=== PATIENT | female | born 1950 | race American Indian/Alaskan Native ===

== ENCOUNTER 2017-01-25 15:33 | Inpatient (IN) | payer MEDICARE, OTHER ==
[2017-01-25 15:48] VITALS: BMI 21.8
--- NOTE | 2017-01-25 16:19 | ED PDOC ---
Arrival/HPI - General Chief Complaint: Weakness/Neurological Deficit Time Seen by Provider: 01/25/17 15:35 Historian: Patient - History of Present Illness Narrative History of Present Illness (Text): 01/25/17 16:13 A 66 year old female, whose past medical history includes hypertension, COPD, anemia, asthma, was sent into the emergency department by PMD complaining of a headache for the past 4 weeks. Patient notes radiating pain to her neck and left shoulder. As per triage, patient also complained of intermittent right arm weakness for 4 weeks. Patient reports she was informed she has a large brain tumor. Patient denies any fever, nausea, vomiting, diarrhea, abdominal pain, chest pain, shortness of breath or any other complaints. pt is poor historian. PMD: Dr. Butt 01/25/17 18:25 Time/Duration: Other (4 weeks) Symptom Course: Unchanged Quality: Other Context: Other Past Medical History - Provider Review Nursing Documentation Reviewed: Yes - Infectious Disease Hx of Infectious Diseases: None - Reproductive Menopause: Yes - Cardiac Hx Cardiac Disorders: Yes Hx Hypertension: Yes - Pulmonary Hx Respiratory Disorders: Yes Hx Asthma: Yes Hx Chronic Obstructive Pulmonary Disease (COPD): Yes - Neurological Hx Neurological Disorder: Yes Hx Seizures: Yes - HEENT Hx HEENT Disorder: Yes Hx Cataracts: Yes (bilateral) - Renal Hx Renal Disorder: No - Endocrine/Metabolic Hx Endocrine Disorders: No - Hematological/Oncological Hx Blood Disorders: Yes Hx Cancer: Yes (lymphoma (in remission)) - Integumentary Hx Dermatological Disorder: No - Musculoskeletal/Rheumatological Hx Musculoskeletal Disorders: No - Gastrointestinal Hx Gastrointestinal Disorders: Yes Hx Gastroesophageal Reflux: Yes - Genitourinary/Gynecological Hx Genitourinary Disorders: Yes Hx Incontinence: Yes - Psychiatric Hx Psychophysiologic Disorder: Yes Hx Anxiety: Yes Hx Substance Use: No - Surgical History Hx Section: Yes - Anesthesia Hx Anesthesia: Yes Hx Anesthesia Reactions: No Hx Malignant Hyperthermia: No - Suicidal Assessment Feels Threatened In Home Enviroment: No Family/Social History - Physician Review Nursing Documentation Reviewed: Yes Family/Social History: No Known Family HX Smoking Status: Former Smoker Hx Alcohol Use: No Hx Substance Use: No Hx Substance Use Treatment: No Allergies/Home Meds Allergies/Adverse Reactions: Allergies No Known Allergies Allergy (Verified 12/18/16 14:32) Home Medications: Home Meds Medication Instructions Recorded Confirmed Aspirin [Ecotrin] 81 mg PO DAILY 09/24/16 01/25/17 Folic Acid 1 mg PO DAILY 09/24/16 01/25/17 Lamotrigine [Lamictal] 200 mg PO BID 10/18/16 01/25/17 Famotidine [Pepcid] 20 mg PO DAILY 10/22/16 01/25/17 Prednisone 5 mg PO DAILY 10/22/16 01/25/17 Metoprolol Tartrate [Lopressor] 50 mg PO BID 12/18/16 01/25/17 Valsartan/Hydrochlorothiazide 1 tab PO DAILY 12/18/16 01/25/17 [Valsartan-Hctz 320-25 mg Tab] Vit A/Vit C/Vit E/Zinc/Copper 1 tab PO BID 12/18/16 01/25/17 [Preservision Areds Tablet] amLODIPine [Norvasc] 10 mg PO DAILY 12/18/16 01/25/17 Review of Systems - Physician Review All systems were reviewed & negative as marked: Yes - Review of Systems Constitutional: absent: Fevers Respiratory: absent: SOB Cardiovascular: absent: Chest Pain Gastrointestinal: absent: Abdominal Pain, Diarrhea, Nausea, Vomiting Neurological: Headache (with radiating pain to neck and left shoulder), Other ( Right arm weakness) Physical Exam Vital Signs Reviewed: Yes Vital Signs Temp Pulse Resp BP Pulse Ox 01/25/17 18:42 98.8 F 114 H 18 127/101 H 98 01/25/17 16:15 110 H 15 150/98 H 100 01/25/17 15:41 99.3 F 109 H 18 153/109 H 97 01/25/17 15:34 99.3 F 109 H 18 153/109 H 97 Temperature: Afebrile Blood Pressure: Hypertensive Pulse: Tachycardic Respiratory Rate: Normal Appearance: Positive for: Well-Appearing, Non-Toxic, Comfortable Pain Distress: None Mental Status: Positive for: Alert and Oriented X 3 - Systems Exam Head: Present: Atraumatic, Normocephalic Pupils: Present: PERRL Extroacular Muscles: Present: EOMI Conjunctiva: Present: Normal Mouth: Present: Moist Mucous Membranes Neck: Present: Normal Range of Motion Respiratory/Chest: Present: Clear to Auscultation, Good Air Exchange. No: Respiratory Distress, Accessory Muscle Use Cardiovascular: Present: Regular Rate and Rhythm, Normal S1, S2. No: Murmurs Abdomen: Present: Normal Bowel Sounds. No: Tenderness, Distention, Peritoneal Signs Back: Present: Normal Inspection Upper Extremity: Present: Normal Inspection. No: Cyanosis, Edema Lower Extremity: Present: Normal Inspection. No: Edema Neurological: Present: GCS=15, CN II-XII Intact, Speech Normal Skin: Present: Warm, Dry, Normal Color. No: Rashes Psychiatric: Present: Alert, Oriented x 3, Normal Insight, Normal Concentration Medical Decision Making ED Course and Treatment: 01/25/17 16:13 Impression: A 66 year old female with a headache,for four weeks Plan: -- Chest xray -- EKG -- Labs -- Blood and Urine culture -- Urinalysis -- Reassess and disposition Prior Visits: Notes and results from previous visits were reviewed. Patient had an MRI done on 01/16/17 which showed, Report Date : 01/16/2017 14:10:02 PROCEDURE: MRI OF THE BRAIN AND INTERNAL AUDITORY CANALS WITH AND WITHOUT CONTRAST. 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 Please see comments for details. Progress Notes: EKG shows sinus tachycardia at 110 BPM with LVH. Interpreted by me. Report Date : 01/25/2017 16:55:19 Procedure: Chest xray Dictator : Dennys Felton MD IMPRESSION: No active disease. No significant interval change compared to the prior examination(s). labs reviewed. neurtropenic. (wbc 2.1) however pt not febrile. pt comfortable. 01/25/17 17:28 Dr. Butt paged. Awaiting call back. 01/25/17 18:[address] Pereyra, who is covering for Dr. Butt, who is aware of and agrees with plan to admit patient under Dr. Butt's service. Labs reviewed, neutrophils noted. Patient does not have a fever, will not administer antibiotics at this time according to Dr Pereyra. 01/25/17 18:25 01/25/17 18:29 - Lab Interpretations Lab Results: 01/25/17 16:32 01/25/17 16:32 Lab Results 01/25/17 16:32: WBC 2.1 L* D, RBC 4.63, Hgb 14.2, Hct 41.7, MCV 90.1, MCH 30.7, MCHC 34.1, RDW 12.9, Plt Count 180, MPV 9.8, Neutrophils % (Manual) 46 L, Lymphocytes % (Manual) 41 H, Monocytes % (Manual) 11 H, Eosinophils % (Manual) 2 , Platelet Evaluation Normal, Sodium 144, Potassium 3.7, Chloride 99, Carbon Dioxide 31, Anion Gap 18, BUN 17, Creatinine 0.9, Est GFR ( Amer) > 60, Est GFR (Non-Af Amer) > 60, Random Glucose 99, Calcium 10.9 H, Total Bilirubin 0.9, AST 46 H, ALT 41, Alkaline Phosphatase 74, Total Protein 8.1, Albumin 4.8, Globulin 3.2, Albumin/Globulin Ratio 1.5 I have reviewed the lab results: Yes - RAD Interpretation Radiology Orders: 01/25/17 16:11 CHEST PORTABLE [RAD] Stat NIHSS Scale ([place]) Time Performed: 16:00 - How Severe is the Stoke Baseline Level of Consciousness: 0=Alert LOC to Questions: 0=Both comments correct LOC to commands: 0=Obeys both correctly Best Gaze: 0=Normal Visual: 0=No visual loss Facial: 0=Normal Motor Arm - Left: 0=No drift Motor Arm - Right: 0=No drift Motor Leg - Left: 0=No drift Motor Leg - Right: 0=No drift Limb Ataxia: 0=Absent Sensory: 0=Normal Best Language: 0=No aphasia Dysarthia: 0=Normal articulation Extinction & Inattention (Neglect): 0=Normal, no object Score: 0 Risk Level: No Stroke Risk rTPA Inclusion/Exclusion - Refusal of Treatment Patient Refused Treatment: No - Inclusion Criteria for Altepase Patient is 18 years or Older: Yes The Clinical Diagnosis of Ischemic Stroke That is Causing a Potentially Disabling Neurological Deficit: No Time of Onset is Well Established to be Less Than 270 Minute Before Treatment Would Begin: No Risk/Benefit Discussed With Patient/Family Member Present: No - Exclusion Criteria for Altepase Uncontrolled Hypertension at Time of Treatment (Systolic BP above 185 or Diastolic BP above 110 mmHg): No Less Than 3 Months Had a Recent: Intracranial History of: Brain Tumor Active Internal Bleeding: No Known Bleeding Diathesis Including but Not Limited to: Platelets Below 100,000/ mm,PTT Above 40 sec After Heparin Use, Current Use of Oral Anitcoagulant With INR Greater Than 1.7 or PT Greater Than 15 secs: No Evidence of an Intracranial Hemorrhage: No Evidence of Major Acute Infarct With Signs Greater Than 1/3 MCA Territory: No Suspicion of Subarachnoid Hemorrhage on Pretreatment Evaluation Even if CT Head Negative For Hemorrhage: No - Warning to TPA With Conditions Following Conditions Weighed Against Anticipated Benefit: No - Scribe Statement The provider has reviewed the documentation as recorded by the Christopher Wallace Provider Scribe Attestation: All medical record entries made by the Christopher were at my direction and personally dictated by me. I have reviewed the chart and agree that the record accurately reflects my personal performance of the history, physical exam, medical decision making, and the department course for this patient. I have also personally directed, reviewed, and agree with the discharge instructions and disposition. Disposition/Present on Arrival - Present on Arrival Any Indicators Present on Arrival: No History of DVT/PE: No History of Uncontrolled Diabetes: No Urinary Catheter: No History of Decub. Ulcer: No History Surgical Site Infection Following: None - Disposition Have Diagnosis and Disposition been Completed?: Yes Diagnosis: Headache Disposition: HOSPITALIZED Disposition Time: 17:00 Patient Plan: Observation Patient Problems: Current Active Problems Problem Status Diagnosed Fever Acute Headache Acute Leukopenia Acute Pancytopenia Acute Weakness Acute B-cell lymphoma Chronic COPD (chronic obstructive pulmonary disease) Chronic Intractable nausea and vomiting Resolved Condition: STABLE
[2017-01-25 16:53] LABS: HEMATOCRIT 41.7 % (36.0-48.0); MEAN CELL VOLUME 90.1 fL (80.0-105.0); MEAN CORPUSCULAR HEMOGLOBIN 30.7 pg (25.0-35.0); MEAN CORPUSCULAR HGB CONC 34.1 g/dl (31.0-37.0); MEAN PLATELET VOLUME 9.8 fl (7.0-11.0); PLATELET COUNT 180 10^3/uL (120.0-450.0); RED CELL DISTRIBUTION WIDTH 12.9 % (11.5-14.5)
--- NOTE | 2017-01-25 16:56 | RAD ---
HISTORY: Sepsis patient. Technique: Single view portable semi erect @ 16:33. COMPARISON: 01/03/2017. FINDINGS: LUNGS: No active pulmonary disease. PLEURA: No significant pleural effusion identified, no pneumothorax apparent. CARDIOVASCULAR: No radiographic findings to suggest acute or significant cardiovascular disease. OSSEOUS STRUCTURES: No significant abnormalities. VISUALIZED UPPER ABDOMEN: Normal. OTHER FINDINGS: None. IMPRESSION: No active disease. No significant interval change compared to the prior examination(s).
[2017-01-25 16:57] LABS: ALB/GLOB RATIO 1.5 (1.1-1.8); ALKALINE PHOSPHATASE 74 U/L (38-133); ALT/SGPT 41 U/L (7-56); AST/SGOT 46 U/L (15-39); BILIRUBIN,TOTAL 0.9 mg/dL (0.2-1.3); BLOOD UREA NITROGEN 17 mg/dL (7-21); CALCIUM 10.9 mg/dL (8.4-10.5); CARBON DIOXIDE 31 mmol/L (21-33); CHLORIDE 99 mmol/L (98-107); GFR AFRICAN-AMERICAN > 60; GLUCOSE,RANDOM 99 mg/dL (70-110); POTASSIUM 3.7 mmol/L (3.6-5.0); SODIUM 144 mmol/L (132-148); TOTAL PROTEIN 8.1 g/dL (5.8-8.3)
[2017-01-25 17:09] LABS: ADD MANUAL DIFF? YES; WHITE BLOOD COUNT 2.1 10^3/ul (4.5-11.0)
[2017-01-25 17:41] LABS: EOSINOPHIL 2 % (0.0-3.0); NEUTROPHIL 46 % (50.0-70.0); PLATELET ESTIMATE NORMAL (NORMAL)
[2017-01-25 18:46] LABS: PH,URINE 7.5 (4.7-8.0); URINE APPEARANCE CLEAR (CLEAR); URINE BILIRUBIN NEGATIVE (NEGATIVE); URINE BLOOD NEGATIVE (NEGATIVE); URINE COLOR YELLOW (YELLOW); URINE GLUCOSE (UA) NEGATIVE (NEGATIVE); URINE KETONE NEGATIVE (NEGATIVE); URINE LEUKOCYTE ESTERASE NEGATIVE Leu/uL (NEGATIVE); URINE PROTEIN TRACE mg/dL (<30 mg/dL); URINE UROBILINOGEN 0.2 E.U./dL (<1 E.U./dL)
[2017-01-25 18:48] LABS: URINE RBC NEGATIVE /hpf (0-2); URINE WBC NEGATIVE /hpf (0-6)
[2017-01-25 20:26] LABS: GRAN # 0.97 (1.4-6.5)
--- NOTE | 2017-01-25 23:54 | CP.PCM.PN ---
Subjective - Date & Time of Evaluation Date of Evaluation: 01/25/17 Time of Evaluation: 23:49 - Subjective Subjective: Patient was seen at bedside because she complained of headache.Has this for 3 weeks, on and off.Mild head ache. No nausea, dizziness. Denies to have had head injury.Also has some shoulder pain on right side.No injury in shoulder. No other Complains. 66 year old woman was admitted with Has PMH of Anemia, asthma, HTN, COPD, lymphoma(Patient states.) Is on neutropenic precautions now. Objective - Vital Signs/Intake and Output Vital Signs (last 24 hours): Temp Pulse Resp BP Pulse Ox 98.6 F 105 H 20 155/95 H 98 01/25/17 20:39 01/25/17 22:22 01/25/17 20:39 01/25/17 22:22 01/25/17 18:42 Intake and Output: 01/25/17 01/26/17 18:59 06:59 Intake Total 500 Balance 500 - Medications Medications: Current Medications Amlodipine Besylate (Norvasc) 10 mg PO DAILY [facility] Camphor/Menthol (Bengay) 0 gm TOP BID PRN PRN Reason: Pain, moderate (4-7) Famotidine (Pepcid) 20 mg PO DAILY [facility] Folic Acid (Folic Acid) 1 mg PO DAILY [facility] Hydrochlorothiazide (Hydrodiuril) 25 mg PO DAILY [facility] Lamotrigine (Lamictal) 200 mg PO BID [facility] Metoprolol Tartrate (Lopressor) 50 mg PO BID [facility] Non-Formulary Medication (Vit A/Vit C/Vit E/Zinc/Copper [Preservision Areds Tablet]) 1 tab PO BID [facility] Valsartan (Diovan) 320 mg PO DAILY [facility] - Constitutional Appears: Well, No Acute Distress - Head Exam Head Exam: ATRAUMATIC, NORMAL INSPECTION, NORMOCEPHALIC - Eye Exam Eye Exam: Normal appearance - ENT Exam ENT Exam: Mucous Membranes Moist - Neck Exam Neck Exam: Normal Inspection. absent: Thyromegaly - Respiratory Exam Respiratory Exam: NORMAL BREATHING PATTERN - Cardiovascular Exam Cardiovascular Exam: absent: JVD - GI/Abdominal Exam GI & Abdominal Exam: absent: Distended - Rectal Exam Rectal Exam: Deferred - Neurological Exam Neurological Exam: Alert, Oriented x3 - Psychiatric Exam Psychiatric exam: Normal Affect, Normal Mood - Skin Skin Exam: Normal Color Assessment and Plan - Assessment and Plan (Free Text) Assessment: A/P: Head ache-stress. Right shoulder pain. HTN. Asthma. Anemia. Tylenol as ordered. Analgesic balm instead of Voltaren cream as ordered by PMD
--- NOTE | 2017-01-26 07:16 | CP.PCM.CON ---
<Leobardo Soto - Last Filed: 01/26/17 10:28> History of Present Illness - History of Present Illness History of Present Illness: Leobardo Soto D.O. PGY-1, Internal Medicine Resident, Neurology Consultation Note , Dr. Jono Mcgowan. Service 66 year old female with a PMH of Stage IV B cell lymphoma, HTN, and seizure disorder who presented to [facility] on 01/25/17 with complaints of right shoulder pain and weakness for multiple weeks. Neurological consultation was placed for Dr. Jono Mcgowan. Patient was seen and examined at bedside. Patient relates how she started to get the right facial numbness about 3-4 weeks ago and around this time also started to get weakness of her right shoulder. Patient denies any numbness of the right shoulder or paresthesias or distal weakness. Patient describes pain as "in the joint." Otherwise patient admits to chronic issues with swallowing foods and has been seen by ENT in the past. Patient states her last seizure was years ago and she usually has no auras but does have urinary incontinence. Review of Systems - Constitutional Constitutional: absent: Anorexia, Chills - EENT Eyes: Requires Corrective Lenses. absent: Pain, Photophobia Ears: absent: Decreased Hearing, Ear Discharge, Ear Pain Nose/Mouth/Throat: absent: Epistaxis, Nasal Congestion, Sinus Pain - Cardiovascular Cardiovascular: absent: Chest Pain, Diaphoresis, Leg Edema - Respiratory Respiratory: absent: Cough, Dyspnea, Hemoptysis - Gastrointestinal Gastrointestinal: Dysphagia. absent: Abdominal Pain, Nausea, Vomiting - Genitourinary Genitourinary: absent: Dysuria, Flank Pain, Hematuria - Musculoskeletal Musculoskeletal: Atrophy (right arm), Myalgias (right shoulder). absent: Arthralgias, Joint Swelling - Integumentary Integumentary: absent: Pruritus, Rash, Sores - Neurological Neurological: Numbness (right face), Focal Weakness (right shoulder). absent: Convulsions, Headaches, Memory Loss Past Patient History - Infectious Disease Hx of Infectious Diseases: None - Past Medical History & Family History Past Medical History?: Yes - Past Social History Smoking Status: Former Smoker - CARDIAC Hx Cardiac Disorders: Yes Hx Hypertension: Yes - PULMONARY Hx Respiratory Disorders: Yes Hx Asthma: Yes Hx Chronic Obstructive Pulmonary Disease (COPD): Yes - NEUROLOGICAL Hx Neurological Disorder: Yes Hx Seizures: Yes - HEENT Hx HEENT Problems: Yes Hx Cataracts: Yes (bilateral) - RENAL Hx Chronic Kidney Disease: No - ENDOCRINE/METABOLIC Hx Endocrine Disorders: No - HEMATOLOGICAL/ONCOLOGICAL Hx Blood Disorders: Yes Hx Cancer: Yes (lymphoma (in remission)) - INTEGUMENTARY Hx Dermatological Problems: No - MUSCULOSKELETAL/RHEUMATOLOGICAL Hx Falls: Yes - GASTROINTESTINAL Hx Gastrointestinal Disorders: Yes Hx Gastroesophageal Reflux: Yes - GENITOURINARY/GYNECOLOGICAL Hx Genitourinary Disorders: Yes Hx Incontinence: Yes - PSYCHIATRIC Hx Psychophysiologic Disorder: Yes Hx Anxiety: Yes - SURGICAL HISTORY Hx Surgeries: Yes - ANESTHESIA Hx Anesthesia: Yes Hx Anesthesia Reactions: No Hx Malignant Hyperthermia: No Meds Allergies/Adverse Reactions: Allergies Allergy/AdvReac Type Severity Reaction Status Date / Time No Known Allergies Allergy Verified 12/18/16 14:32 - Medications Medications: Current Medications Amlodipine Besylate (Norvasc) 10 mg PO DAILY [facility] Camphor/Menthol (Bengay) 0 gm TOP BID PRN PRN Reason: Pain, moderate (4-7) Famotidine (Pepcid) 20 mg PO DAILY [facility] Folic Acid (Folic Acid) 1 mg PO DAILY [facility] Hydrochlorothiazide (Hydrodiuril) 25 mg PO DAILY [facility] Lamotrigine (Lamictal) 200 mg PO BID [facility] Metoprolol Tartrate (Lopressor) 50 mg PO BID [facility] Non-Formulary Medication (Vit A/Vit C/Vit E/Zinc/Copper [Preservision Areds Tablet]) 1 tab PO BID [facility] Valsartan (Diovan) 320 mg PO DAILY [facility] Physical Exam - Constitutional Additional comments: well developed, well nourished, pleasant elderly female, skinny nearing cachectic - Head Exam Head Exam: ATRAUMATIC, NORMOCEPHALIC - Eye Exam Eye Exam: EOMI, PERRL. absent: Scleral icterus - ENT Exam Additional comments: oropharynx is pink and dry - Neck Exam Additional comments: soft, supple, no LAD - Cardiovascular Exam Cardiovascular Exam: Tachycardia, +S1, +S2 - GI/Abdominal Exam GI & Abdominal Exam: Soft. absent: Distended, Tenderness - Extremities Exam Extremities exam: Positive for: normal capillary refill. Negative for: calf tenderness, pedal edema, tenderness - Back Exam Back exam: absent: CVA tenderness (L), CVA tenderness (R), muscle spasm, paraspinal tenderness, vertebral tenderness - Neurological Exam Additional comments: awake, alert, oriented x4, right facial numbness in V1, 2, and 3 distributions, tongue is midline, uvula is midline, able to lift palate equally, PERRL, EOMI, hearing intact, weakness of right shoulder abduction/deltoid, rest of muscle exam: R [employer] 5/5, BI 4+/5, TRI 4/5, DELT 2/5, HF 4+/5, KF 4+/5, DF 4+/5, EHL 5/5 L Yacht [employer] 5/5, BI 5/5, TRI 4+/5, DELT 4+/5, HF 5/5, KF 4+/5, DF 5/5, EHL 4/5 +1 brach/bi/tri/pat/ach reflexes - Skin Skin Exam: Dry, Intact, Warm Results - Vital Signs Recent Vital Signs: Last Vital Signs Temp 98.6 F 01/25/17 20:39 Pulse 106 H 01/26/17 05:51 Resp 20 01/25/17 20:39 BP 155/95 H 01/25/17 22:22 Pulse Ox 98 01/25/17 18:42 - Labs Result Diagrams: 01/25/17 16:32 01/25/17 16:32 Labs: Laboratory Results - last 24 hr 01/25/17 18:12 Urine Color Yellow Urine Appearance Clear Urine pH 7.5 Ur Specific [place] 1.015 Urine Protein Trace H Urine Glucose (UA) Negative Urine Ketones Negative Urine Blood Negative Urine Nitrate Negative Urine Bilirubin Negative Urine Urobilinogen 0.2 Ur Leukocyte Esterase Negative Urine RBC Negative Urine WBC Negative Assessment & Plan - Assessment and Plan (Free Text) Assessment: 66 year old female with a PMH of Stage IV B cell lymphoma, HTN, and seizure disorder who presented to [facility] on 01/25/17 with complaints of right shoulder pain and weakness for multiple weeks. Neurological consultation was placed for Dr. Jono Osuna Plan: Right facial numbness with right medial temporal lobe lesion Right shoulder weakness and pain Stage IV B-cell lymphoma previously on R-CVP chemotherapy with 4-5 treatments in the past Seizure disorder Labs reviewed by me. Imaging reviewed by me, Brain MRI matches her right facial numbness lesion invasion into the Meckel's cave, suspicious for metastasis of her known B-cell lymphoma vs unlikely primary lesion. Case was discussed with Dr. Wing and we discussed the above. This lesion does not match her right shoulder weakness and pain however; I discussed this with Dr. Bynum over telephone and this could be related to a drop metastasis (intradural, extramedullary spinal metastasis), and so she is pending MRI of the cervicothoracic spine. Started on 20 of decadron STAT and will be getting 4mg IV q6h to alleviate her symptoms. Continue with lamictal for seizure disorder. This is not a code stroke patient. Other medical issues under management of primary team. Thank you for allowing us to be involved in the care of this interesting patient , we will continue to follow. Patient was seen and case will be discussed in detail with attending physician. - Date & Time Date: 01/26/17 Time: 07:20 <Harsh De La Cruz - Last Filed: 01/26/17 13:42> Meds - Medications Medications: Current Medications Amlodipine Besylate (Norvasc) 10 mg PO DAILY [facility] Last Admin: 01/26/17 09:01 Dose: 10 mg Camphor/Menthol (Bengay) 0 gm TOP BID PRN PRN Reason: Pain, moderate (4-7) Dexamethasone (Decadron Inj) 4 mg IVP Q6 [facility] Famotidine (Pepcid) 20 mg PO DAILY [facility] Last Admin: 01/26/17 09:01 Dose: 20 mg Folic Acid (Folic Acid) 1 mg PO DAILY [facility] Last Admin: 01/26/17 09:01 Dose: 1 mg Hydrochlorothiazide (Hydrodiuril) 25 mg PO DAILY [facility] Last Admin: 01/26/17 09:01 Dose: 25 mg Lamotrigine (Lamictal) 200 mg PO BID [facility] Last Admin: 01/26/17 09:00 Dose: 200 mg Metoprolol Tartrate (Lopressor) 50 mg PO BID [facility] Last Admin: 01/26/17 09:01 Dose: 50 mg Valsartan (Diovan) 320 mg PO DAILY [facility] Last Admin: 01/26/17 09:01 Dose: 320 mg Results - Vital Signs Recent Vital Signs: Last Vital Signs Temp 98 F 01/26/17 07:52 Pulse 130 H 01/26/17 10:00 Resp 19 01/26/17 07:52 BP 138/103 H 01/26/17 09:01 Pulse Ox 98 01/26/17 07:52 - Labs Result Diagrams: 01/25/17 16:32 01/25/17 16:32 Labs: Laboratory Results - last 24 hr 01/25/17 18:12 Urine Color Yellow Urine Appearance Clear Urine pH 7.5 Ur Specific [place] 1.015 Urine Protein Trace H Urine Glucose (UA) Negative Urine Ketones Negative Urine Blood Negative Urine Nitrate Negative Urine Bilirubin Negative Urine Urobilinogen 0.2 Ur Leukocyte Esterase Negative Urine RBC Negative Urine WBC Negative Attending/Attestation - Attestation I have personally seen and examined this patient.: Yes I have fully participated in the care of the patient.: Yes I have reviewed all pertinent clinical information: Yes Notes (Text): 01/26/17 13:40 patient discussed and seen. will speak with Dr Bynum. this patient did not have a vascular event (TIA, Cerebral Infarct or Hemmorhage).
[2017-01-26] MEDS ORDERED: Dexamethasone 20 MG in Sodium Chloride 0.9% 50 ML IV ONE (08:50)
[2017-01-26] MEDS ORDERED: Sodium Chloride 0.9% 1,000 ML IV STA (09:14)
--- NOTE | 2017-01-26 09:40 | HP ---
HISTORY OF PRESENT ILLNESS: A 66-year-old black female with a history of seizure disorder, history o f hypertension, and history of lymphoma. The patient recently was found to have recurrent lymphoma i n the alma, and recently was seen in the ____ complaining of severe loss of strength of the right upp er extremity. The patient was seen in the office and examined and admitted to the hospital with prog ressive PHARMACY ASSISTANT lymphoma, metastatic lymphoma. PHYSICAL EXAMINATION: GENERAL: Shows a well-developed, but thin black female in no apparent distress. HEENT: Essentially within normal limits. HEART: Regular sinus rhythm. No S3 or murmurs. CHEST: Clear to auscultation and percussion. ABDOMEN: Benign, but thin. EXTREMITIES: Without cyanosis, clubbing, edema. NEUROLOGIC: She is awake and alert x 3. Neurologic examination is grossly intact. Cranial nerves I I-XII are intact. Speech is fluent. The patient is oriented to time, place, and person. There is m arked hemiparesis of the right upper extremity with brief reflexes. Babinskis are downgoing bilatera lly. CEREBELLAR: Within normal limits. IMPRESSION: New onset of right upper extremity hemiparesis in a patient with recent diagnosis of met astatic lymphoma of the alma, history of generalized lymphoma, hypertension. The patient was admitte d for pulse steroids, emergent possible radiation therapy, neurosurgical consultation, and control of blood pressure and seizure disorder REVIEW OF SYSTEMS: A 12-point review of systems is unremarkable except for weakness of the right upp er extremity. The patient states that symptoms began approximately 24-48 hours prior to being seen i n the office. FAMILY HISTORY: Unremarkable. SOCIAL HISTORY: Negative for alcohol and tobacco. PAST MEDICAL HISTORY: Positive only for hypertension, seizure disorder, and lymphoma. ALLERGIES: The patient has no known allergies. Alex Butt MD cc: [id number] TT: 01/26/2017 09:25:39 jn 01/26/2017 08:39:58
[2017-01-26] MEDS ORDERED: Non Formulary Medication (Valsartan/Hydrochlorothiazide [Valsartan-Hctz 320-25 Mg Tab] 1 T PO SCH (10:00)
[2017-01-26] MEDS ORDERED: [UNRECOGNIZED DRUG - OTHER] PO SCH (10:00)
[2017-01-26] MEDS ORDERED: LAMOTRIGINE 200 MG PO SCH (10:00)
[2017-01-26] MEDS ORDERED: ZINC PO SCH (10:00)
[2017-01-26] MEDS ORDERED: VIT E PO SCH (10:00)
[2017-01-26] MEDS ORDERED: VIT C PO SCH (10:00)
[2017-01-26] MEDS ORDERED: VIT A PO SCH (10:00)
[2017-01-26] MEDS ORDERED: COPPER PO SCH (10:00)
[2017-01-26] MEDS ORDERED: diaZEpam 10 mg/2 ml Inj IVP ONE (11:05)
--- NOTE | 2017-01-26 11:18 | CP.PCM.CON ---
<Shyam Geller - Last Filed: 01/26/17 13:21> History of Present Illness - History of Present Illness History of Present Illness: ICU Consult Note for Dr. Ochoa 66 y/o F with PMH of lymphoma, seizure disorder, and HTN presented to the ED on 01/25/17 for a 3-4 week history of right sided headache. Pt states she woke up from her sleep and noticed that her headache was severe, 10/10. Pt denies auras. Pt stated she took aleve for the pain which helped briefly, but pain would come back. In addition to this headache, pt noted a development of right sided arm weakness and shoulder pain. Pt denies any trauma or recent falls. Pt states the weakness in her right arm has become progressively worse and now needs her other arm to help pick it up. Pt has not received any chemotherapy or radiation within the last several months for her lymphoma. On her last visit to her oncologist it was noted that she was in remission. ICU was called to evaluate patient due to tachycardia and brain lesion. Denies CP, SOB, N/V/D, changes in vision or smell, fevers, chills, dysuria. Admits to occasional dizziness. PMH: As above Surgical Hx: Family Hx: Father from stroke Social Hx: Former occasional smoker, denies alcohol or illicit drug use Medication: See MAR Allergies: NKDA Review of Systems - Review of Systems Review of Systems: As per HPI Past Patient History - Infectious Disease Hx of Infectious Diseases: None - Past Medical History & Family History Past Medical History?: Yes - Past Social History Smoking Status: Former Smoker - CARDIAC Hx Cardiac Disorders: Yes Hx Hypertension: Yes - PULMONARY Hx Respiratory Disorders: Yes Hx Asthma: Yes Hx Chronic Obstructive Pulmonary Disease (COPD): Yes - NEUROLOGICAL Hx Neurological Disorder: Yes Hx Seizures: Yes - HEENT Hx HEENT Problems: Yes Hx Cataracts: Yes (bilateral) - RENAL Hx Chronic Kidney Disease: No - ENDOCRINE/METABOLIC Hx Endocrine Disorders: No - HEMATOLOGICAL/ONCOLOGICAL Hx Blood Disorders: Yes Hx Cancer: Yes (lymphoma (in remission)) - INTEGUMENTARY Hx Dermatological Problems: No - MUSCULOSKELETAL/RHEUMATOLOGICAL Hx Falls: Yes - GASTROINTESTINAL Hx Gastrointestinal Disorders: Yes Hx Gastroesophageal Reflux: Yes - GENITOURINARY/GYNECOLOGICAL Hx Genitourinary Disorders: Yes Hx Incontinence: Yes - PSYCHIATRIC Hx Psychophysiologic Disorder: Yes Hx Anxiety: Yes - SURGICAL HISTORY Hx Surgeries: Yes - ANESTHESIA Hx Anesthesia: Yes Hx Anesthesia Reactions: No Hx Malignant Hyperthermia: No Meds Allergies/Adverse Reactions: Allergies Allergy/AdvReac Type Severity Reaction Status Date / Time No Known Allergies Allergy Verified 12/18/16 14:32 - Medications Medications: Current Medications Amlodipine Besylate (Norvasc) 10 mg PO DAILY [facility] Last Admin: 01/26/17 09:01 Dose: 10 mg Camphor/Menthol (Bengay) 0 gm TOP BID PRN PRN Reason: Pain, moderate (4-7) Dexamethasone (Decadron Inj) 4 mg IVP Q6 [facility] Famotidine (Pepcid) 20 mg PO DAILY [facility] Last Admin: 01/26/17 09:01 Dose: 20 mg Folic Acid (Folic Acid) 1 mg PO DAILY [facility] Last Admin: 01/26/17 09:01 Dose: 1 mg Hydrochlorothiazide (Hydrodiuril) 25 mg PO DAILY [facility] Last Admin: 01/26/17 09:01 Dose: 25 mg Lamotrigine (Lamictal) 200 mg PO BID [facility] Last Admin: 01/26/17 09:00 Dose: 200 mg Metoprolol Tartrate (Lopressor) 50 mg PO BID [facility] Last Admin: 01/26/17 09:01 Dose: 50 mg Valsartan (Diovan) 320 mg PO DAILY [facility] Last Admin: 01/26/17 09:01 Dose: 320 mg Physical Exam - Constitutional Appears: Well, No Acute Distress - Head Exam Head Exam: ATRAUMATIC, NORMAL INSPECTION, NORMOCEPHALIC - Eye Exam Eye Exam: EOMI, Normal appearance, PERRL - ENT Exam ENT Exam: Mucous Membranes Moist, Normal Exam - Neck Exam Neck exam: Positive for: Normal Inspection. Negative for: Lymphadenopathy - Respiratory Exam Respiratory Exam: Clear to Auscultation Bilateral, NORMAL BREATHING PATTERN. absent: Rales, Rhonchi - Cardiovascular Exam Cardiovascular Exam: Tachycardia, REGULAR RHYTHM, +S1, +S2 - GI/Abdominal Exam GI & Abdominal Exam: Normal Bowel Sounds, Soft. absent: Rebound, Tenderness - Extremities Exam Extremities exam: Positive for: normal inspection. Negative for: calf tenderness, pedal edema - Neurological Exam Neurological exam: Alert, CN II-XII Intact, Oriented x3 Additional comments: Upper right extremity strength 2/5 Upper left extremity strength 5/5 Lower left extremity strength 5/5 Lower right extremity strength 5/5 - Psychiatric Exam Psychiatric exam: Normal Affect, Normal Mood - Skin Skin Exam: Intact, Normal Color, Warm Results - Vital Signs Recent Vital Signs: Last Vital Signs Temp 98 F 01/26/17 07:52 Pulse 138 H 01/26/17 09:01 Resp 19 01/26/17 07:52 BP 138/103 H 01/26/17 09:01 Pulse Ox 98 01/26/17 07:52 - Labs Result Diagrams: 01/25/17 16:32 01/25/17 16:32 Labs: Laboratory Results - last 24 hr 01/25/17 18:12 Urine Color Yellow Urine Appearance Clear Urine pH 7.5 Ur Specific [place] 1.015 Urine Protein Trace H Urine Glucose (UA) Negative Urine Ketones Negative Urine Blood Negative Urine Nitrate Negative Urine Bilirubin Negative Urine Urobilinogen 0.2 Ur Leukocyte Esterase Negative Urine RBC Negative Urine WBC Negative Assessment & Plan - Assessment and Plan (Free Text) Plan: 66 y/o F with PMH of lymphoma, seizure disorder, and HTN presented to the ED on 01/25/17 for a 3-4 week history of right sided headache. ICU was consulted for tachycardia and brain mass. Pt was found to be tachycardic at a rate of 111 after receiving a bolus of 1 L of NS. At this time, EKG and cardiology consult will be recommended. Pt was resting comfortably in her room. Brain MRI shows enhancing lesion surrounding the right trigeminal nerve extending from the surface of the alma into meckels cave. At this time, patient does not meet criteria for ICU admission as she is hemodynamically stable and has no respiratory distress. Neuro: AAOx3 Seizure precautions, continue home medication Aspiration precautions New onset right upper extremity weakness, consider MRI cervical spine Facial numbness secondary to lesion surrounding trigeminal nerve Cardio: Hemodynamically stable Maintain MAP >65 Recommend EKG and cardiology consult for prolonged tachycardia Continue home BP medication Pulm: Maintain 02 saturation greater than 90% No respiratory distress at this time Aspiration precautions GI: GI prophylaxis HHD Onc/ID: Afebrile, leukopenic Awaiting blood and urine cultures Radiation oncology consulted Oncology consulted Maintain normothermia Nephro: Replenish electrolytes as needed Maintain euvolemia Seen, reviewed, and discussed with attending. Duyen, PGY-1 <Kelby Ochoa - Last Filed: 01/26/17 13:48> Meds - Medications Medications: Current Medications Amlodipine Besylate (Norvasc) 10 mg PO DAILY [facility] Last Admin: 01/26/17 09:01 Dose: 10 mg Camphor/Menthol (Bengay) 0 gm TOP BID PRN PRN Reason: Pain, moderate (4-7) Dexamethasone (Decadron Inj) 4 mg IVP Q6 [facility] Famotidine (Pepcid) 20 mg PO DAILY [facility] Last Admin: 01/26/17 09:01 Dose: 20 mg Folic Acid (Folic Acid) 1 mg PO DAILY [facility] Last Admin: 01/26/17 09:01 Dose: 1 mg Hydrochlorothiazide (Hydrodiuril) 25 mg PO DAILY [facility] Last Admin: 01/26/17 09:01 Dose: 25 mg Lamotrigine (Lamictal) 200 mg PO BID [facility] Last Admin: 01/26/17 09:00 Dose: 200 mg Metoprolol Tartrate (Lopressor) 50 mg PO BID [facility] Last Admin: 01/26/17 09:01 Dose: 50 mg Valsartan (Diovan) 320 mg PO DAILY [facility] Last Admin: 01/26/17 09:01 Dose: 320 mg Results - Vital Signs Recent Vital Signs: Last Vital Signs Temp 98 F 01/26/17 07:52 Pulse 130 H 01/26/17 10:00 Resp 19 01/26/17 07:52 BP 138/103 H 01/26/17 09:01 Pulse Ox 98 01/26/17 07:52 - Labs Result Diagrams: 01/25/17 16:32 01/25/17 16:32 Labs: Laboratory Results - last 24 hr 01/25/17 18:12 Urine Color Yellow Urine Appearance Clear Urine pH 7.5 Ur Specific [place] 1.015 Urine Protein Trace H Urine Glucose (UA) Negative Urine Ketones Negative Urine Blood Negative Urine Nitrate Negative Urine Bilirubin Negative Urine Urobilinogen 0.2 Ur Leukocyte Esterase Negative Urine RBC Negative Urine WBC Negative Attending/Attestation - Attestation I have personally seen and examined this patient.: Yes I have fully participated in the care of the patient.: Yes I have reviewed all pertinent clinical information: Yes Notes (Text): 01/26/17 13:43 The patient was seen and examined at the bedside. Patient care was discussed with resident Medical records, lab studies, and imaging were reviewed and management issues were discussed and formulated. Last 24H events reviewed. Agree with above treatment plans as outlined in 's note with addition of the following: -hemodynamic monitoring to maintain MAP>65; currently stable -f\u serial ECG -asymptomatic sinus tachycardia noted -consider cardiology eval -o2 supplementation to maintain Spo2>90 Pao2>60; currently comfortable on NC -consider nebs PRN -neurosurgery team f\u -neurology team f\u -continue anti-seizure meds and precautions -repeat brain MRI as per neurosurgical team -f\u Bun\Cr and U\o -PO diet and aspiration precautions -continue neuro checks -heme\onc f\u for possible radiation therapy -DVT\PUD prophylaxis Pt is hemodynamically stable at the time of exam. Pt speaking full sentences in no respiratory distress. Pt is alert and oriented and follows commands. Please reconsult if condition changes or necessary CCM eval time 40min
[2017-01-26] MEDS: Dexamethasone 4 mg/1 ml IVP SCH ×2 (12:00→18:02)
--- NOTE | 2017-01-26 12:26 | CP.PCM.CON ---
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 Her history dates back to 2015 when she presented with fevers of unknown etiology. A CT of the chest, abdomen and pelvis on January 16, 2016 revealed stable extensive axillary and mediastinal adenopathy. There was abnormal enhancement in the spleen. On December 30, 2015, she had a bone marrow biopsy with flow cytometry which confirmed small cell lymphoma. She was treated with rituxan based chemotherapy. She had a good response. A CT/Pet scan on May 18, 2016 revealed no lymphadenopathy. In September, she was having issues with dysphagia as well as dizziness. On October 04, 2016, she had a follow up CT of the neck and chest which revealed no evidence of disease recurrence. An esophagram on October 05, [address] of the head on October 16, 2016 was negative dizziness. On October 26, 2016, she had a modified barium swallow which revealed transient aspiration. She then started having right sided facial numbness. A MRI of the brain on January 16, 2017 revealed an enhancing mass in the right trigeminal extending into the alma which was felt to be a schwannoma versus subarachnoid metastases. She was supposed to be evaluated for neurosurgery for evaluation for possible biopsy, however she started having right arm weakness. In light of her evolving symptoms, she was admitted to [facility] for further evaluation and management. She was also found to be neutropenic on admission. Review of Systems - Constitutional Constitutional: Weight Loss - EENT Nose/Mouth/Throat: Hoarsness - Respiratory Respiratory: Cough - Gastrointestinal Gastrointestinal: Dysphagia - Musculoskeletal Musculoskeletal: Neck Pain - Neurological Neurological: Focal Weakness Additional comments: right proximal arm weakness and right facial numbness. Past Patient History - Infectious Disease Hx of Infectious Diseases: None - Past Medical History & Family History Past Medical History?: Yes - Past Social History Smoking Status: Former Smoker Alcohol: Occasional - CARDIAC Hx Cardiac Disorders: Yes Hx Hypertension: Yes - PULMONARY Hx Respiratory Disorders: Yes Hx Asthma: Yes Hx Chronic Obstructive Pulmonary Disease (COPD): Yes - NEUROLOGICAL Hx Neurological Disorder: Yes Hx Seizures: Yes - HEENT Hx HEENT Problems: Yes Hx Cataracts: Yes (bilateral) - RENAL Hx Chronic Kidney Disease: No - ENDOCRINE/METABOLIC Hx Endocrine Disorders: No - HEMATOLOGICAL/ONCOLOGICAL Hx Blood Disorders: Yes Hx Cancer: Yes (stage IV lymphoma in 2016) - INTEGUMENTARY Hx Dermatological Problems: No - MUSCULOSKELETAL/RHEUMATOLOGICAL Hx Falls: Yes - GASTROINTESTINAL Hx Gastrointestinal Disorders: Yes Hx Gastroesophageal Reflux: Yes - GENITOURINARY/GYNECOLOGICAL Hx Genitourinary Disorders: Yes Hx Incontinence: Yes - PSYCHIATRIC Hx Psychophysiologic Disorder: Yes Hx Anxiety: Yes - SURGICAL HISTORY Hx Surgeries: Yes - ANESTHESIA Hx Anesthesia: Yes Hx Anesthesia Reactions: No Hx Malignant Hyperthermia: No Meds Allergies/Adverse Reactions: Allergies Allergy/AdvReac Type Severity Reaction Status Date / Time No Known Allergies Allergy Verified 12/18/16 14:32 - Medications Medications: Current Medications Amlodipine Besylate (Norvasc) 10 mg PO DAILY [facility] Last Admin: 01/26/17 09:01 Dose: 10 mg Camphor/Menthol (Bengay) 0 gm TOP BID PRN PRN Reason: Pain, moderate (4-7) Dexamethasone (Decadron Inj) 4 mg IVP Q6 [facility] Famotidine (Pepcid) 20 mg PO DAILY [facility] Last Admin: 01/26/17 09:01 Dose: 20 mg Folic Acid (Folic Acid) 1 mg PO DAILY [facility] Last Admin: 01/26/17 09:01 Dose: 1 mg Hydrochlorothiazide (Hydrodiuril) 25 mg PO DAILY [facility] Last Admin: 01/26/17 09:01 Dose: 25 mg Lamotrigine (Lamictal) 200 mg PO BID [facility] Last Admin: 01/26/17 09:00 Dose: 200 mg Metoprolol Tartrate (Lopressor) 50 mg PO BID [facility] Last Admin: 01/26/17 09:01 Dose: 50 mg Valsartan (Diovan) 320 mg PO DAILY [facility] Last Admin: 01/26/17 09:01 Dose: 320 mg Physical Exam - Head Exam Head Exam: NORMAL INSPECTION - Eye Exam Eye Exam: EOMI - ENT Exam ENT Exam: Mucous Membranes Moist - Respiratory Exam Respiratory Exam: Clear to Auscultation Bilateral - Cardiovascular Exam Cardiovascular Exam: REGULAR RHYTHM - GI/Abdominal Exam GI & Abdominal Exam: Normal Bowel Sounds - Back Exam Back exam: NORMAL INSPECTION - Neurological Exam Neurological exam: Oriented x3 Additional comments: right trigeminal nerve palsy and right proximal arm weakness 4/5. She is unable to raise her right arm above her shoulders. Her left arm strength is intact. Lower extremity strength is intact. Results - Vital Signs Recent Vital Signs: Last Vital Signs Temp 98 F 01/26/17 07:52 Pulse 138 H 01/26/17 09:01 Resp 19 01/26/17 07:52 BP 138/103 H 01/26/17 09:01 Pulse Ox 98 01/26/17 07:52 - Labs Result Diagrams: 01/25/17 16:32 01/25/17 16:32 Labs: Laboratory Results - last 24 hr 01/25/17 18:12 Urine Color Yellow Urine Appearance Clear Urine pH 7.5 Ur Specific [place] 1.015 Urine Protein Trace H Urine Glucose (UA) Negative Urine Ketones Negative Urine Blood Negative Urine Nitrate Negative Urine Bilirubin Negative Urine Urobilinogen 0.2 Ur Leukocyte Esterase Negative Urine RBC Negative Urine WBC Negative Assessment & Plan - Assessment and Plan (Free Text) Assessment: Ms Barlow is a 66 year old female with 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 Given her evolving symptoms, we would concur that she needs a MRI of the cervical and thoracic spine to evaluate for drop metastases. She would benefit from decadron to help reduce the mass effect on the nerves. She will be transferred to the ICU for close monitoring. We discussed her brain lesion with Dr Bynum, and most likely given the constellation of symptoms, this is a metastases. We spoke to her about the risks and benefits. Informed consent was obtained. We will schedule her for a simulation session so that we can begin U[facility]AN[place].
--- NOTE | 2017-01-26 14:02 | CON ---
DATE: 01/26/2017 HISTORY OF PRESENT ILLNESS: This 66-year-old black female admitted last night. History of seizure d isorder, history of hypertension and history of lymphoma. Was found to have a mass in the right Meck [place]'s cave area impressing upon the area of the fifth nerve as well as the anterolateral alma. She wa s admitted last night because of complaints of pain and weakness in the right upper extremity. She n otes that she has pain on motion of the arm at the shoulder. She has weakness proximally. She is un able to really get her arm above the plane of her shoulder independently. The strength in her arm be low that, the biceps, triceps, intrinsics of the hand are equal to the other side. She really has no sensory deficits on that arm. There is tenderness in the area of the shoulder as well as pain on pa ssive motion of the shoulder. PHYSICAL EXAMINATION: She remains awake, alert. She has complaint of pain in her face. Her pupils are equal. Her EOMs are full. She does not have any nystagmus. Her tongue is midline. Her gag and corneal are present. She does have sensation in the trigeminal on both sides of her face. At this point, I have reviewed the chart and discussed with her, her family history, social history, past medical history and review of systems. ALLERGIES: She has no allergies. MEDICATIONS: Listed on the chart. The weakness in her right shoulder along with the pain is really not consistent with the lesion we se e on the MRI of her head. I have recommended an MRI of the cervical spine as well as some diagnostic workup of her shoulder. The lesion within the Meckel's cave is home undoubtedly metastatic lymphoma and therefore should be treated with radiation. Biopsying this area is with difficulty and risk and I do not recommend that. If the MRI of the neck shows anything that is related to her symptomatolog y of her arm, I will add an addendum and discuss treatment options. If not, then there is nothing fu rther from a neurosurgical point of view to do. If you have any questions, do not hesitate to contac t me. Portillo Wing MD cc: [id number] TT: 01/26/2017 14:01:59 Confirmation # [id number] Dictation # [id number]
--- NOTE | 2017-01-26 14:52 | CARD ---
APPROVED REPORT EKG Measurement Heart [id number] <Conclusion> Sinus tachycardia Minimal voltage criteria for LVH, may be normal variant Possible Anterior infarct, age undetermined Abnormal ECG
[2017-01-26] MEDS ORDERED: diaZEpam 10 mg/2 ml Inj IVP STA (16:35)
[2017-01-27] MEDS: Dexamethasone 4 mg/1 ml IVP SCH ×5 (00:07→23:25)
--- NOTE | 2017-01-27 04:13 | CON ---
DATE: 01/26/2017 The patient is currently in room 363, bed 1. HISTORY OF PRESENT ILLNESS: The patient was admitted through the Emergency Room last night, I had be en consulted to see the patient for new onset of findings with right-sided weakness with a background history of recently having been diagnosed with a mass lesion in the alma that was picked up on recen t CAT scan done on 01/16/2017 for progressively worsening symptoms associated with recurrent aspirati on pneumonia and the question was whether the patient was having problems with first active deglutiti on secondary to involvement of the cranial nerves. The patient had been seen by ENT, Dr. Henri millard, who ordered the MRI and after obtained the results of the MRI, the patient was asked to see me. 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 Upon bone marrow biopsy was noted to have a stage IV lymphoma. The patient received 6 cycles of chemotherapy, went into complete remission as evidence on the followup PET/CT scan in 06/08 16 when she was in complete remission. 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 The patient imp roved and was doing relatively well until end of September beginning of October where she was admitte d to the hospital with recurrent pneumonias and there is question of aspiration raised. The patient had CAT scans of the head, which was inconclusive for any mass lesions at that time. The patient con tinued to deteriorate and started having right facial numbness in the distribution of the trigeminal nerve going along the medial aspect of the face and going down to the jaw along with difficulty eatin g and also recurrent aspirations. Based on this, the MRI of the brain was done. The patient was see n by us after the MRI and was scheduled to see the neurosurgeon, Dr. Wing in his office for fu rther evaluation including treatment recommendations or possibly is a targeted biopsy, so that we cou ld make further decisions on treatment planning if it was feasible. We did wanted to get the opinion whether biopsy the area around the alma is ____ should we empirically radiate the patient. Unfortun ately, before she could see Dr. Wing, the patient was seen in Dr. Butt, her PMD's office yesterday with new onset of weakness in the right arm and also associated with that the patient has s ome discomfort and pain in the shoulder as well. Based on this, the patient was also complaining sania t this was also a sudden onset less than 4 days old and in view of this after Dr. Btut spoke to me, we advised the patient to come to the Emergency Room. Constitutional, the patient denies any his tory of fevers or chills. She definitely complains of significant numbness on the right side of the face with no difficulty in swallowing and recurrent aspiration that triggers off more with liquids th an solids. PAST MEDICAL HISTORY: Also significant for seizure disorder for more than 15 years, for which she is on anti-seizure medicines Lamictal. HOME MEDICATIONS: The patient's home medications were reviewed. She is on famotidine 20 daily, foli c acid 1 mg daily, HydroDIURIL 25 mg daily, Lamictal 200 mg b.i.d., metoprolol 50 mg b.i.d., was on D iovan 320 mg p.o. daily. PHYSICAL EXAMINATION: GENERAL: At the time of nurse interview, the patient to be well-developed, well-nourished Am er[place] female who is skinny and showing temporal muscle wasting. HEENT: Head is normocephalic, atraumatic. Conjunctivae pale. Sclerae are anicteric. The patient h as no evidence of any scleral icterus. Examination of the ear, nose, and throat reveals no oropharyn geal lesions. Tongue is moist. NEUROLOGIC: The patient is complaining of numbness in the distribution of the trigeminal nerve on th e right side extending into the jaw. In fact, the jaw also feels also numb also on the right side. Left side appears to be within normal limits. NECK: Supple. There is no adenopathy. No jugular venous distention noted. CARDIOVASCULAR: Reveals S1 and S2 to be normal. The patient has tachycardia. No gallop, no murmur is heard. ABDOMEN: Soft, nontender. Liver and spleen are not palpable. No rebound, rigidity, or guarding is noted. EXTREMITIES: Reveals no cyanosis, clubbing, or edema. No calf tenderness is noted. BACK: Reveals no CVA tenderness, no muscle spasm, no tenderness or vertebral tenderness. NEUROLOGIC: The patient is awake, alert, and oriented x 3. The patient is complaining of facial num bness in the distribution of trigeminal nerve. Tongue is in the midline. Uvula is in the midline. The patient is able to lift the palate equally. The patient has noticeable weakness of the right man ulder and she is also complaining of pain at the right shoulder, but she is unable to raise the arm a svetlana 45 degrees. Right client hr manager is about 5. Deltoid is 2/5, that is of concern to us. Left client hr manager and left hand appear to be within reasonably normal limits. SKIN: Turgor is decreased. No skin lesions are noted. No petechia noted. VITAL SIGNS: From today revealed a T-max of 98.4, pulse is 106, respirations 20, blood pressure is 1 55/95, pulse ox is 98%. LABORATORY DATA: From today reveals a white count of 2.1 with an A NC of 1.9, hemoglobin 14.2, hemat ocrit 41.7, platelet count 180,000. Sodium is 134, K is 3.7, chloride is 99, CO2 is 31, BUN is 17, c reatinine 0.9 with a blood sugar of 99. Urine is clear, pH is 7.5. Specific gravity is 1.1015. Uri ne protein is trace, glucose is negative, ketones are negative. Urine blood is negative. ASSESSMENT NOTES AND PLAN: A 66-year-old female with a new onset of weakness of the right arm and fo rearm along with shoulder pain, with history of having stage IV lymphoma, hypertension, seizure disor efrain, and the findings of a lesion on the alma extending into the Meckel's cave on the right side abhilash g with distribution of the trigeminal nerve, most consistent with recurrence of lymphoma rather than another type of tumor such as schwannoma or primary brain tumor. I spoke with Dr. Wing and Dr Иван Reyes prior to the patient being admitted. The issue here is what could be the next step or cour se of action to take. Plan is to start the patient on IV steroids. She is going to get a stat dose of Decadron 20 mg and then 4 mg IV q. 6 hours. The patient is also going to be placed on PPI and H2 blockers to protect her stomach. We are going to get a stat evaluation by the radiation oncology to see if the patient is a candidate for radiation. In the meantime, I will speak to the neurosurgeon i f there is any value for anything else to be done. Neurology is going to decided if there is a need for possible spinal tap as well. The question is if we could not put the 2 findings of the lesion in the alma and the weakness in the right arm and forearm together unless the patient has secondary met s or what we call as drop mets in the spinal cord. All these would have to be ascertained by doing a nother MRI of the cervical and dorsal spine when the patient is in a better shape to go down and lie down in the MRI machine. Unfortunately, she had to be pulled out today, she became very panicky, man rt of breath, and anxious. I discussed my findings with the neurology resident and spoke to Dr. Edda ferreira, spoke to Dr. Wing as well. Plan is to evaluate the patient for stat radiation, put in a stat consult for Dr. Coleman, I spoke to her and presented the case. She is going to start the treatme nts as soon as it is feasible with the radiation. I also reviewed the MRI with the radiologist from 01/16 clearly shows there is a mass involving the right trigeminal nerve extending anteriorly from th e surface of the shante and extending into the Meckel's cave on the right side. Post contrast image 5 s eries 19 shows the mass measured 26 x 10 mm within the Meckel's cave image of 10 series 18, mas s in that measures 16 mm in diameter. Once, we start the radiation we are going to assess the patien t for ongoing therapy with either continuation of Rituxan or even adding a combination with Rituxan w ith a drug like Imbruvica. Routine post exam instructions have been given to the patient. The patie nt is going to be transferred to the ICU for further definitive management given the fact that tumor is on the shante and the question is that it could be a situation where she could deteriorate suddenly a s all the ____ centers are in the alma and I told the doctors involved in this care that it will be b joy to proactive than reactive over the next 24 hours. Once, the patient gets radiation to the bra in we are going to decide when we are going to start the chemotherapy. Routine post exam instruction s have been given to the patient and I did speak to the patient's as well. Labs for a.m. has been requested. Britni Bynum MD cc: [id number] TT: 01/27/2017 04:12:58 Confirmation # [id number] Dictation # [id number] in
[2017-01-27 05:31] LABS: HEMATOCRIT 38.1 % (36.0-48.0); MEAN CELL VOLUME 88.2 fL (80.0-105.0); MEAN CORPUSCULAR HEMOGLOBIN 30.3 pg (25.0-35.0); MEAN CORPUSCULAR HGB CONC 34.4 g/dl (31.0-37.0); MEAN PLATELET VOLUME 9.7 fl (7.0-11.0); PLATELET COUNT 174 10^3/uL (120.0-450.0); RED CELL DISTRIBUTION WIDTH 12.5 % (11.5-14.5); WHITE BLOOD COUNT 5.8 10^3/ul (4.5-11.0)
[2017-01-27 05:37] LABS: ADD MANUAL DIFF? YES
[2017-01-27 05:50] LABS: ALB/GLOB RATIO 1.6 (1.1-1.8); ALKALINE PHOSPHATASE 57 U/L (38-133); ALT/SGPT 47 U/L (7-56); AST/SGOT 48 U/L (15-39); BILIRUBIN,TOTAL 0.7 mg/dL (0.2-1.3); BLOOD UREA NITROGEN 23 mg/dL (7-21); CARBON DIOXIDE 26 mmol/L (21-33); CHLORIDE 97 mmol/L (95-110); CHOLESTEROL 231 mg/dL (130-200); GFR AFRICAN-AMERICAN > 60; GLUCOSE,RANDOM 177 mg/dL (70-110); MAGNESIUM 1.9 mg/dL (1.7-2.2); PHOSPHOROUS 3.4 mg/dL (2.5-4.5); POTASSIUM 3.8 mmol/L (3.6-5.0); SODIUM 138 mmol/L (132-148); TOTAL PROTEIN 6.9 g/dL (5.8-8.3)
[2017-01-27 06:26] LABS: BAND 4 % (0-2); NEUTROPHIL 60 % (50.0-70.0)
[2017-01-27 06:27] LABS: METAMYELOCYTE 1 %; MYELOCYTE 2 %
[2017-01-27 06:28] LABS: PLATELET ESTIMATE NORMAL (NORMAL)
--- NOTE | 2017-01-27 07:20 | CP.PCM.PN ---
<Leobardo Soto - Last Filed: 01/27/17 08:20> Subjective - Date & Time of Evaluation Date of Evaluation: 01/27/17 Time of Evaluation: 07:10 - Subjective Subjective: Leobardo Soto D.O. PGY-1, Internal Medicine Resident, Neurology Consultation Note , Dr. Jono Mcgowan. Service 66 year old female with a PMH of small cell lymphoma, HTN, and seizure disorder who presented to [facility] on 01/25/17 with complaints of right shoulder pain and weakness for multiple weeks. Neurological consultation was placed for Dr. Jono Mcgowan. Patient was seen and examined at bedside. Patient appears more comfortable today and states that her right shoulder pain is gone. Patient does admit that she still has the same weakness and this has not changed. Yesterday there was an issue with getting the MRI of the cervical and thoracic spine as patient had a lot of shoulder pain and could not be still in the MRI machine, but she states that since her pain is gone now she could do it today. Patient denied any CP, SOB, N/V/D/C, dysuria, or other complaints. Objective - Vital Signs/Intake and Output Vital Signs (last 24 hours): Temp Pulse Resp BP Pulse Ox 98.5 F 128 H 20 118/82 99 01/27/17 04:59 01/27/17 06:00 01/27/17 06:00 01/27/17 06:00 01/27/17 06:00 Intake and Output: 01/27/17 01/27/17 06:59 18:59 Intake Total 600 Output Total 400 Balance 200 - Medications Medications: Current Medications Acetaminophen (Tylenol 325mg Tab) 650 mg PO Q4H PRN PRN Reason: Fever >100.4 F Last Admin: 01/27/17 03:59 Dose: 650 mg Amlodipine Besylate (Norvasc) 10 mg PO DAILY [facility] Last Admin: 01/26/17 09:01 Dose: 10 mg Camphor/Menthol (Bengay) 0 gm TOP BID PRN PRN Reason: Pain, moderate (4-7) Dexamethasone (Decadron Inj) 4 mg IVP Q6 [facility] Last Admin: 01/27/17 05:39 Dose: 4 mg Famotidine (Pepcid) 20 mg PO DAILY [facility] Last Admin: 01/26/17 09:01 Dose: 20 mg Folic Acid (Folic Acid) 1 mg PO DAILY [facility] Last Admin: 01/26/17 09:01 Dose: 1 mg Hydrochlorothiazide (Hydrodiuril) 25 mg PO DAILY [facility] Last Admin: 01/26/17 09:01 Dose: 25 mg Lamotrigine (Lamictal) 200 mg PO BID [facility] Last Admin: 01/26/17 18:01 Dose: 200 mg Propranolol HCl (Inderal) 20 mg PO TID [facility] Last Admin: 01/26/17 18:02 Dose: 20 mg Valsartan (Diovan) 320 mg PO DAILY [facility] Last Admin: 01/26/17 09:01 Dose: 320 mg - Labs Labs: 01/27/17 05:00 01/27/17 05:00 Physical Exam - Constitutional Additional comments: physical exam remains largely unchanged, patient is a well developed, well nourished, pleasant elderly female, skinny nearing cachectic, cooperative, in better spirits today - Head Exam Head Exam: ATRAUMATIC, NORMOCEPHALIC - Eye Exam Eye Exam: EOMI, PERRL. absent: Scleral icterus - ENT Exam Additional comments: oropharynx is pink and dry - Neck Exam Additional comments: soft, supple, no LAD - Cardiovascular Exam Cardiovascular Exam: Tachycardia, +S1, +S2 - GI/Abdominal Exam GI & Abdominal Exam: Soft. absent: Distended, Tenderness - Extremities Exam Extremities exam: Positive for: normal capillary refill. Negative for: calf tenderness, pedal edema, tenderness - Back Exam Back exam: absent: CVA tenderness (L), CVA tenderness (R), muscle spasm, paraspinal tenderness, vertebral tenderness - Neurological Exam Additional comments: largely unchanged exam, AAOx4, right facial numbness in V1 , 2, and 3 distributions, tongue is midline, uvula is midline, able to lift palate equally, weakness of right shoulder abduction/deltoid 2/5, rest of muscle exam: R Log Skidder 5/5, BI 4+/5, TRI 4/5, DELT 2/5, HF 4+/5, KF 4+/5, DF 4+/5, EHL 5/5 L Log Skidder 5/5, BI 5/5, TRI 4+/5, DELT 4+/5, HF 5/5, KF 4+/5, DF 5/5, EHL 4/5 +1 brach/bi/tri/pat/ach reflexes - Skin Skin Exam: Dry, Intact, Warm Assessment and Plan - Assessment and Plan (Free Text) Assessment: 66 year old female with a PMH of Stage IV B cell lymphoma, HTN, and seizure disorder who presented to [facility] on 01/25/17 with complaints of right shoulder pain and weakness for multiple weeks. Neurological consultation was placed for Dr. Jono Mcgowan. Plan: Right facial numbness with right medial temporal lobe lesion Right shoulder weakness, pain is resolved Small cell lymphoma previously on R-CVP chemotherapy Seizure disorder Labs reviewed by me, neutropenia improved. Currently pending MRI of the cervical spine to confirm the suspected drop metastasis as the etiology for her right shoulder weakness, issue with patient being in pain yesterday and anxious but after length discussion and with patient 's pain resolved, patient willing to give it another try. Continue with dexamethasone. Spoke with Dr. Coleman about getting the abovementioned MRI and radiation therapy for today. Continue with lamictal for seizure disorder. Other medical issues under management of primary team. Thank you for allowing us to be involved in the care of this interesting patient , we will continue to follow. Patient was seen and case will be discussed in detail with attending physician. <Harsh De La Cruz - Last Filed: 01/27/17 15:47> Objective - Vital Signs/Intake and Output Vital Signs (last 24 hours): Temp Pulse Resp BP Pulse Ox 98.8 F 117 H 14 137/91 H 97 01/27/17 12:00 01/27/17 14:46 01/27/17 14:46 01/27/17 14:00 01/27/17 14:46 Intake and Output: 01/27/17 01/27/17 06:59 18:59 Intake Total 600 Output Total 400 Balance 200 - Medications Medications: Current Medications Acetaminophen (Tylenol 325mg Tab) 650 mg PO Q4H PRN PRN Reason: Fever >100.4 F Last Admin: 01/27/17 03:59 Dose: 650 mg Camphor/Menthol (Bengay) 0 gm TOP BID PRN PRN Reason: Pain, moderate (4-7) Dexamethasone (Decadron Inj) 4 mg IVP Q6 [facility] Last Admin: 01/27/17 13:52 Dose: 4 mg Famotidine (Pepcid) 20 mg PO DAILY [facility] Last Admin: 01/27/17 09:06 Dose: 20 mg Folic Acid (Folic Acid) 1 mg PO DAILY [facility] Last Admin: 01/27/17 09:07 Dose: 1 mg Heparin Sodium (Porcine) (Heparin) 5,000 units SC Q8 [facility] PRN Reason: Protocol Last Admin: 01/27/17 13:59 Dose: 5,000 units Hydralazine HCl (Apresoline) 10 mg PO QID PRN PRN Reason: for sbp>160 & diastolic >100 Hydrochlorothiazide (Hydrodiuril) 25 mg PO DAILY [facility] Last Admin: 01/27/17 09:07 Dose: 25 mg Lamotrigine (Lamictal) 200 mg PO BID [facility] Last Admin: 01/27/17 09:07 Dose: 200 mg Propranolol HCl (Inderal La) 80 mg PO DAILY [facility] Last Admin: 01/27/17 09:50 Dose: 80 mg - Labs Labs: 01/27/17 05:00 01/27/17 05:00 Attending/Attestation - Attestation I have personally seen and examined this patient.: Yes I have fully participated in the care of the patient.: Yes I have reviewed all pertinent clinical information, including history, physical exam and plan: Yes Notes (Text): 01/27/17 15:46 patienty discussed witht he resident
[2017-01-27] MEDS ORDERED: diaZEpam 10 mg/2 ml Inj IVP ONE ×2 (07:21→08:18)
--- NOTE | 2017-01-27 07:34 | CON ---
DATE: 01/26/2017 REASON FOR CONSULTATION: Tachycardia, cardiac evaluation. BRIEF CLINICAL HISTORY: This is a 66-year-old female with a past medical history of stage IV lymphom a, status post chemo 2016, last chemo, 8 months ago, when the patient presented with fevers of unknow n etiology. Workup shows mediastinal lymphadenopathy as well as axillary lymphadenopathy and spleen enlargement. The patient has diagnosed lymphoma, small cell lymphoma and status post chemo after the bone marrow biopsy. The patient came in today with generalized weakness, more so started feeling di zziness and also feeling that weakness in both upper extremities, complaining of severe loss of stren gth in both, more so in the right upper extremity, so the patient was admitted for further workup and possible central nervous system lymphoma with metastasis, found to be sinus tachycardia, so cardiolo gy consult was called. The patient denies any chest pain, denies any shortness of breath, denies any palpitation, but when she walks in the , heart rate goes to 130. The patient is going for MRI of the head and neck. Denies any chest pain, but complained that she is unable to get her arm above the shoulder. PAST MEDICAL HISTORY: Significant for as mentioned lymphoma with metastasis, seizure disorder, hyper tension, asthma. PAST SURGICAL HISTORY: So far none. FAMILY HISTORY: Denies any cancer disease. SOCIAL HISTORY: Denies smoking. Denies any history of tobacco abuse. ALLERGIES: No known drug allergy. CURRENT MEDICATIONS: The patient is taking at home was taking an aspirin, prednisone, metoprolol 50 mg twice a day and amlodipine. REVIEW OF SYSTEMS: As per HPI. PHYSICAL EXAMINATION: VITAL SIGNS: Temperature afebrile, heart rate 130 when she walks, resting heart rate 120, blood pres sure 140/80. HEENT: PERRLA. Extraocular muscles intact. NECK: Supple. No thyromegaly. CHEST: Clear to auscultation. HEART: S1, S2 regular. ABDOMEN: Soft. EXTREMITIES: Clubbing and cyanosis negative. LABORATORY DATA: Blood workup as follows: WBC 2.1, hemoglobin 14.1, hematocrit 41.7, platelet count 180. Chemistry shows sodium 144, potassium 3.7, chloride 99, carbon dioxide , anion gap of 18, BUN 17, creatinine 0.9. EKG showed sinus tachycardia, LVH. IMPRESSION: Sinus tachycardia, multifactorial, possibly some underlying condition, neutropenic lymph joshua with metastasis, seizure disorder, hypertension. RECOMMENDATION: The patient is having MRI. We will discontinue metoprolol, start nonselective beta harman, Inderal 20 mg 3 times and monitor. We will get echo to rule out any structural heart diseas e if not done in last 6 months. We will follow with you. Thank you, , for providing the opportunity in taking care of the patient. ADDENDUM: On electronic medical record reviewed. The patient had multiple echoes done, last echo 12/27/2015 and shows a left ventricular ejection fraction 65-70%, no tricuspid regurgitation noted, no mi tral valve regurgitation noted, dated . Prior to that, the patient had an echo in 04/20/[address] Barrera and that shows normal left ventricular function, ejection fraction within the norm al limits, mild valvular aortic stenosis, moderate tricuspid regurgitation, moderate to severe pulmon génesis hypertension, RV systolic pressure reported 61 dated 04/20/2016. Prior to that, the patient had a n echocardiography on 12/29/2015, and that was JUSTIN that showed ejection fraction 65%, no thrombus not ed, trace aortic regurgitation, trace to mild mitral regurgitation, mild to moderate tricuspid regurg itation, right ventricular systolic pressure 38. Prior to that, the patient had a regular echo done on 12/21/2015 that showed ejection fraction 65%, trace aortic regurgitation, mild mitral regurgitatio n, moderate tricuspid regurg, RV systolic pressure 54. In view of above, we will not order an echo, but I will start beta harman, monitor with you. Thank you, Dr. Bynum, for providing us the opportunity in taking care of the patient. We will foll ow with you. Waylon Perez MD cc: [id number] TT: 01/26/2017 19:09:52 Confirmation # [id number] Dictation # [id number] 01/27/2017 06:33:57
--- NOTE | 2017-01-27 09:37 | PN ---
DATE: 01/27/2017 REASON FOR CONSULTATION AND FOLLOWUP: Tachycardia, cardiac evaluation, metastatic lymphoma. BRIEF CLINICAL HISTORY: A 66-year-old female with a past medical history significant for stage IV ly mphoma, status post chemo 2015, last chemo 8 months ago. The patient presented with fever of unknown etiology. When the patient presented, unknown etiology, workup showed lymphadenopathy with axillary lymphadenopathy and splenic enlargement. Workup shows lymphoma, status post chemo. Now patie nt is complaining of the weakness of her upper extremity. Yesterday, patient had MRI of the brain an d spine done. The patient has tachycardia. The patient was on losartan, amlodipine and metoprolol. Metoprolol discontinued, started propranolol, heart rate is 130. Denies any chest pain, shortness o f breath, any palpitation. PHYSICAL EXAMINATION: VITAL SIGNS: Temperature afebrile, heart rate 128, blood pressure 118/82. HEENT: PERRLA. Extraocular muscles intact. NECK: Supple. No carotid bruits. No thyromegaly. CHEST: Clear to auscultation. HEART: S1, S2 regular. ABDOMEN: Soft. EXTREMITIES: Clubbing, cyanosis negative. BLOOD WORKUP: WBC 5.8, hemoglobin 13.1, hematocrit 38.1, platelet count 174. Chemistry shows sodium 130, potassium 3. , chloride 98, carbon dioxide 26, anion gap of 19, BUN 23, creatinine 0.9. TS H is 0.18. Total cholesterol 231, LDL 135, HDL 82. 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 RECOMMENDATION: We will discontinue valsartan 320 because patient is running low blood pressure and also we will discontinue amlodipine for now and we will increase propranolol to 80 mg and we will put hydralazine p.r.n. for elevated blood pressure. We will monitor with you. As mentioned in my consu ltation yesterday, patient has had multiple echoes done. Last echo 12/29. Multiple echoes that shows ejection fraction preserved, dated 12/21/2015 that shows ejection fraction preserved. Prior to that, patient had JUSTIN, also 12/29, that also showed preserved left ventricular function. Most recent echo 12/27/2015 that showed ejection fraction %, no tricuspid regurgitation noted, no mitral valve reg urgitation noted, dated 12/27/2015. We will follow with you. Thank you, Dr. Bynum, for providing us the opportunity in taking care of the patient. Waylon Perez MD cc: [id number] TT: 01/27/2017 09:37:09 Confirmation # [id number] Dictation # [id number]
[2017-01-27] MEDS: Propranolol 80 mg ER Cap PO SCH (09:50)
[2017-01-27] MEDS ORDERED: Gadodiamide 287 MG/ML VIAL (15ML) IV ONE (12:19)
--- NOTE | 2017-01-27 13:22 | MRI ---
PROCEDURE: MRI of the cervical spine with contrast HISTORY: R/O drop mets, do with contrast only COMPARISON: TECHNIQUE: MRI of the cervical spine was performed in the sagittal and axial plane using pre and postcontrast T1 weighted imaging. 15 cc of Omniscan were injected FINDINGS: There is no evidence of abnormal enhancement within the cord or within the subarachnoid space to suggest metastatic disease. The spinal cord is unremarkable. Disc degeneration is seen throughout the cervical spine IMPRESSION: No evidence of metastatic disease
--- NOTE | 2017-01-27 13:25 | MRI ---
PROCEDURE: MR THORACIC SPINE WITH AND WITHOUT CONTRAST HISTORY: R/O drop metases, only if pt can handle COMPARISON: MRI of the cervical spine same day TECHNIQUE: Multiecho multiplanar sequences were performed through the thoracic spine with and without the use of intravenous contrast. 15 cc of Omniscan FINDINGS: ALIGNMENT: Normal thoracic spinal alignment. Normal thoracic kyphosis. VERTEBRA: Vertebral body height are preserved. MARROW: Marrow signal unremarkable. PARASPINAL SOFT TISSUES: Unremarkable. CORD: Unremarkable thoracic cord. No volume loss, signal abnormality or syrinx. DISCS: No disc herniation, spinal canal stenosis, or neuroforaminal narrowing. ENHANCEMENT: No abnormal enhancement. OTHER FINDINGS: None. IMPRESSION: No evidence of metastatic disease to the cord or subarachnoid space
--- NOTE | 2017-01-27 13:42 | PN ---
DATE: 01/27/2017 The patient seen and examined at bedside. She is comfortable. She talks full sentences. She is not in respiratory or otherwise distress. Shoulder pain is gone. PHYSICAL EXAMINATION: VITAL SIGNS: Heart rate 127 (the patient was evaluated by Dr. Perez and propranolol will be started), oxygen saturation 100% on room air, respiratory rate 20, blood pressure 144/80. HEAD AND NECK: Atraumatic. LUNGS: Clear to auscultation bilaterally. HEART: Regular rate and rhythm. S1, S2 normal. ABDOMEN: Soft, nontender, nondistended. NEUROLOGIC: The patient has 3/5 motor strength weakness in the right upper extremity. The strength of the left upper as well as both lower extremities is symmetrical and 5/5. The patient is able to raise her eyebrows, stick out her tongue, smile and shrug her shoulders without any asymmetry or weakness. SKIN: Moist. PSYCHIATRIC: The patient is alert and oriented x 3. LABORATORIES: WBC 5.8, hemoglobin 13.1, platelet count 174. Sodium 138, potassium 3.8, chloride 97, carbon dioxide 26, BUN 23, creatinine 0.9, glucose 177, AST 48, ALT 47. MRI of the thoracic and cervical spine reviewed. MEDICATIONS: Hydralazine p.r.n., Decadron 4 mg IV q. 6, folic acid, Granix, hydrochlorothiazide, propranolol, Lamictal, Pepcid, Tylenol p.r.n., Valium. 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 The patient is getting Decadron to offset swelling that may occur as a result of external radiation therapy. She is in the ICU for frequent neuro checks; however, if doing okay overnight, will be transferred out to regular floor. We will continue to target euvolemia, euglycemia, normothermia and oxygen saturation more than 90%. We will continue with deep venous thrombosis and gastrointestinal prophylaxis. ccm time 40 min Samir Perez MD cc: [id number] TT: 01/27/2017 13:41:22 Confirmation # [id number] Dictation # [id number] en MTDD
--- NOTE | 2017-01-27 15:29 | CP.CCUPN ---
<Ragini Smith - Last Filed: 01/27/17 15:23> CCU Subjective - Physician Review Subjective (Free Text): PGY-1 ICU progress note Patient seen and examined at bedside. No acute distress. Nurse reports no acute events overnight. Patient states she is feeling well, denies facial pain, headache, chest pain, sob, abd pain, n/v/d/c. She continues to report right arm weakness. 01/27/17 15:23 CCU Objective - Vital Signs / Intake & Output Vital Signs (Last 4 hours): Vital Signs Temp Pulse Resp BP Pulse Ox 01/27/17 14:46 117 H 14 97 01/27/17 14:00 123 H 31 H 137/91 H 100 01/27/17 13:54 126 H 23 01/27/17 13:53 127 H 16 01/27/17 13:52 125 H 26 H 01/27/17 13:51 126 H 14 01/27/17 13:13 125 H 144/80 100 01/27/17 13:12 124 H 37 H 01/27/17 12:00 98.8 F 117 H 21 137/91 H 98 Intake and Output (Last 8hrs): Intake & Output 01/27/17 01/27/17 01/27/17 06:59 14:59 22:59 Intake Total 600 Output Total 400 Balance 200 Weight 58.06 kg Intake: Oral 600 Output: Urine 400 Urine, Voided 400 Other: Voiding Method Bedside Commode - Physical Exam Head: Positive for: Atraumatic, Normocephalic Pupils: Positive for: PERRL Extroacular Muscles: Positive for: EOMI Conjunctiva: Positive for: Normal Mouth: Positive for: Moist Mucous Membranes Neck: Positive for: Normal Range of Motion Respiratory/Chest: Positive for: Clear to Auscultation, Good Air Exchange. Negative for: Respiratory Distress, Accessory Muscle Use Cardiovascular: Positive for: Normal S1, S2, Tachycardic. Negative for: Murmurs Abdomen: Positive for: Normal Bowel Sounds. Negative for: Tenderness, Distention, Peritoneal Signs Back: Positive for: Normal Inspection Upper Extremity: Positive for: Normal Inspection. Negative for: Cyanosis, Edema Lower Extremity: Positive for: Normal Inspection. Negative for: Edema Neurological: Positive for: GCS=15, CN II-XII Intact, Speech Normal, Other ( upper right extremity strength 3/5, other extremities strenght 5/5) Skin: Positive for: Warm, Dry, Normal Color. Negative for: Rashes Psychiatric: Positive for: Alert, Oriented x 3, Normal Insight, Normal Concentration - Medications Active Medications: Active Medications Generic Name Dose Route Start Last Admin Trade Name Freq PRN Reason Stop Dose Admin Acetaminophen 650 mg 01/27/17 03:47 01/27/17 03:59 Tylenol 325mg Tab PO 650 mg Q4H PRN Administration Fever >100.4 F Camphor/Menthol 0 gm 01/25/17 23:28 Bengay TOP BID PRN Pain, moderate (4-7) Dexamethasone 4 mg 01/26/17 12:00 01/27/17 13:52 Decadron Inj IVP 4 mg Q6 ARVIND Administration Famotidine 20 mg 01/26/17 10:00 01/27/17 09:06 Pepcid PO 20 mg DAILY ARVIND Administration Folic Acid 1 mg 01/26/17 10:00 01/27/17 09:07 Folic Acid PO 1 mg DAILY ARVIND Administration Heparin Sodium (Porcine) 5,000 units 01/27/17 14:00 01/27/17 13:59 Heparin SC 5,000 units Q8 ARVIND Administration Protocol Hydralazine HCl 10 mg 01/27/17 08:57 Apresoline PO QID PRN for sbp>160 & diastolic >100 Hydrochlorothiazide 25 mg 01/26/17 10:00 01/27/17 09:07 Hydrodiuril PO 25 mg DAILY ARVIND Administration Lamotrigine 200 mg 01/26/17 10:00 01/27/17 09:07 Lamictal PO 200 mg BID ARVIND Administration Propranolol HCl 80 mg 01/27/17 10:00 01/27/17 09:50 Inderal La PO 80 mg DAILY ARVIND Administration - Patient Studies Lab Studies: Lab Studies 01/27/17 Range/Units 05:00 WBC 5.8 D (4.5-11.0) 10^3/ul RBC 4.32 (3.5-6.1) 10^6/uL Hgb 13.1 (12.0-16.0) gm/dL Hct 38.1 (36.0-48.0) % MCV 88.2 (80.0-105.0) fL MCH 30.3 (25.0-35.0) pg MCHC 34.4 (31.0-37.0) g/dl RDW 12.5 (11.5-14.5) % Plt Count 174 (120.0-450.0) 10^3/uL MPV 9.7 (7.0-11.0) fl Gran # 3.50 (1.4-6.5) Neutrophils % (Manual) 60 (50.0-70.0) % Band Neutrophils % 4 H (0-2) % Lymphocytes % (Manual) 20 L (22.0-35.0) % Monocytes % (Manual) 13 H (1.0-6.0) % Metamyelocytes % 1 % Myelocytes % 2 % Platelet Evaluation Normal (NORMAL) Sodium 138 (132-148) mmol/L Potassium 3.8 (3.6-5.0) mmol/L Chloride 97 (95-110) mmol/L Carbon Dioxide 26 (21-33) mmol/L Anion Gap 19 (10-20) BUN 23 H (7-21) mg/dL Creatinine 0.9 (0.5-1.4) mg/dL Est GFR ( Amer) > 60 Est GFR (Non-Af Amer) > 60 Random Glucose 177 H (70-110) mg/dL Hemoglobin A1c 5.1 (4.2-6.5) % Calcium 10.0 (8.4-10.5) mg/dL Phosphorus 3.4 (2.5-4.5) mg/dL Magnesium 1.9 (1.7-2.2) mg/dL Total Bilirubin 0.7 (0.2-1.3) mg/dL AST 48 H (15-39) U/L ALT 47 (7-56) U/L Alkaline Phosphatase 57 (38-133) U/L Total Protein 6.9 (5.8-8.3) g/dL Albumin 4.3 (3.0-4.8) g/dL Globulin 2.6 gm/dL Albumin/Globulin Ratio 1.6 (1.1-1.8) Triglycerides 69 (35-160) mg/dL Cholesterol 231 H (130-200) mg/dL LDL Cholesterol Direct 135 H (0-129) mg/dL HDL Cholesterol 82 H (29-60) mg/dL TSH 3rd Generation 0.18 L (0.46-4.68) mIU/mL Laboratory Results - last 24 hr 01/27/17 05:00 WBC 5.8 D RBC 4.32 Hgb 13.1 Hct 38.1 MCV 88.2 MCH 30.3 MCHC 34.4 RDW 12.5 Plt Count 174 MPV 9.7 Gran # 3.50 Neutrophils % (Manual) 60 Band Neutrophils % 4 H Lymphocytes % (Manual) 20 L Monocytes % (Manual) 13 H Metamyelocytes % 1 Myelocytes % 2 Platelet Evaluation Normal Sodium 138 Potassium 3.8 Chloride 97 Carbon Dioxide 26 Anion Gap 19 BUN 23 H Creatinine 0.9 Est GFR ( Amer) > 60 Est GFR (Non-Af Amer) > 60 Random Glucose 177 H Hemoglobin A1c 5.1 Calcium 10.0 Phosphorus 3.4 Magnesium 1.9 Total Bilirubin 0.7 AST 48 H ALT 47 Alkaline Phosphatase 57 Total Protein 6.9 Albumin 4.3 Globulin 2.6 Albumin/Globulin Ratio 1.6 Triglycerides 69 Cholesterol 231 H LDL Cholesterol Direct 135 H HDL Cholesterol 82 H TSH 3rd Generation 0.18 L Assessment/Plan - Assessment and Plan (Free Text) Assessment: 66 y/o F with PMH of lymphoma, seizure disorder, and HTN presented with 3-4 week history of right sided headache, 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 Brain MRI shows enhancing lesion surrounding the right trigeminal nerve extending from the surface of the alma into meckels cave. Plan: Neuro: - pt is AAOx3 - currently receiving radiation for brain lesion - on decadron for swelling - cont Seizure precautions - cont to monitor for changes in mentation - home continue home medication - Aspiration precautions - MRI cervical spine shows no metastatic disease - thoracic spine shows no metastatic disease - Facial numbness secondary to lesion surrounding trigeminal nerve - neurology following Cardio: - Blood pressure stable - tachycardic, currently on propanolol - cardiology following - Maintain MAP >65 - Continue home BP medication Pulm: - Maintain 02 saturation greater than 90% - No respiratory distress at this time - Aspiration precautions GI: - GI prophylaxis - Heart Healthy Diet ID: - Afebrile, leukopenia has improved - blood and urine cultures negative after 24 hours - Maintain normothermia heme/onc - pt received radiation today - radiation oncology following - Oncology following - neurosugery consulted do not recommend biopsy Nephro: - Replenish electrolytes as needed - Maintain euvolemia discussed with attending. <Samir Perez - Last Filed: 01/27/17 17:12> CCU Objective - Vital Signs / Intake & Output Vital Signs (Last 4 hours): Vital Signs Pulse Resp BP Pulse Ox 01/27/17 14:46 117 H 14 97 01/27/17 14:00 123 H 31 H 137/91 H 100 01/27/17 13:54 126 H 23 01/27/17 13:53 127 H 16 01/27/17 13:52 125 H 26 H 01/27/17 13:51 126 H 14 01/27/17 13:13 125 H 144/80 100 01/27/17 13:12 124 H 37 H Intake and Output (Last 8hrs): Intake & Output 01/27/17 01/27/17 01/27/17 06:59 14:59 22:59 Intake Total 600 Output Total 400 Balance 200 Weight 128 lb Intake: Oral 600 Output: Urine 400 Urine, Voided 400 Other: Voiding Method Bedside Commode - Medications Active Medications: Active Medications Generic Name Dose Route Start Last Admin Trade Name Freq PRN Reason Stop Dose Admin Acetaminophen 650 mg 01/27/17 03:47 01/27/17 03:59 Tylenol 325mg Tab PO 650 mg Q4H PRN Administration Fever >100.4 F Camphor/Menthol 0 gm 01/25/17 23:28 Bengay TOP BID PRN Pain, moderate (4-7) Dexamethasone 4 mg 01/26/17 12:00 01/27/17 13:52 Decadron Inj IVP 4 mg Q6 ARVIND Administration Famotidine 20 mg 01/26/17 10:00 01/27/17 09:06 Pepcid PO 20 mg DAILY ARVIND Administration Folic Acid 1 mg 01/26/17 10:00 01/27/17 09:07 Folic Acid PO 1 mg DAILY ARVIND Administration Heparin Sodium (Porcine) 5,000 units 01/27/17 14:00 01/27/17 13:59 Heparin SC 5,000 units Q8 ARVIND Administration Protocol Hydralazine HCl 10 mg 01/27/17 08:57 Apresoline PO QID PRN for sbp>160 & diastolic >100 Hydrochlorothiazide 25 mg 01/26/17 10:00 01/27/17 09:07 Hydrodiuril PO 25 mg DAILY ARVIND Administration Lamotrigine 200 mg 01/26/17 10:00 01/27/17 09:07 Lamictal PO 200 mg BID ARVIND Administration Propranolol HCl 80 mg 01/27/17 10:00 01/27/17 09:50 Inderal La PO 80 mg DAILY ARVIND Administration - Patient Studies Lab Studies: Lab Studies 01/27/17 Range/Units 05:00 WBC 5.8 D (4.5-11.0) 10^3/ul RBC 4.32 (3.5-6.1) 10^6/uL Hgb 13.1 (12.0-16.0) gm/dL Hct 38.1 (36.0-48.0) % MCV 88.2 (80.0-105.0) fL MCH 30.3 (25.0-35.0) pg MCHC 34.4 (31.0-37.0) g/dl RDW 12.5 (11.5-14.5) % Plt Count 174 (120.0-450.0) 10^3/uL MPV 9.7 (7.0-11.0) fl Gran # 3.50 (1.4-6.5) Neutrophils % (Manual) 60 (50.0-70.0) % Band Neutrophils % 4 H (0-2) % Lymphocytes % (Manual) 20 L (22.0-35.0) % Monocytes % (Manual) 13 H (1.0-6.0) % Metamyelocytes % 1 % Myelocytes % 2 % Platelet Evaluation Normal (NORMAL) Sodium 138 (132-148) mmol/L Potassium 3.8 (3.6-5.0) mmol/L Chloride 97 (95-110) mmol/L Carbon Dioxide 26 (21-33) mmol/L Anion Gap 19 (10-20) BUN 23 H (7-21) mg/dL Creatinine 0.9 (0.5-1.4) mg/dL Est GFR ( Amer) > 60 Est GFR (Non-Af Amer) > 60 Random Glucose 177 H (70-110) mg/dL Hemoglobin A1c 5.1 (4.2-6.5) % Calcium 10.0 (8.4-10.5) mg/dL Phosphorus 3.4 (2.5-4.5) mg/dL Magnesium 1.9 (1.7-2.2) mg/dL Total Bilirubin 0.7 (0.2-1.3) mg/dL AST 48 H (15-39) U/L ALT 47 (7-56) U/L Alkaline Phosphatase 57 (38-133) U/L Total Protein 6.9 (5.8-8.3) g/dL Albumin 4.3 (3.0-4.8) g/dL Globulin 2.6 gm/dL Albumin/Globulin Ratio 1.6 (1.1-1.8) Triglycerides 69 (35-160) mg/dL Cholesterol 231 H (130-200) mg/dL LDL Cholesterol Direct 135 H (0-129) mg/dL HDL Cholesterol 82 H (29-60) mg/dL TSH 3rd Generation 0.18 L (0.46-4.68) mIU/mL Laboratory Results - last 24 hr 01/27/17 05:00 WBC 5.8 D RBC 4.32 Hgb 13.1 Hct 38.1 MCV 88.2 MCH 30.3 MCHC 34.4 RDW 12.5 Plt Count 174 MPV 9.7 Gran # 3.50 Neutrophils % (Manual) 60 Band Neutrophils % 4 H Lymphocytes % (Manual) 20 L Monocytes % (Manual) 13 H Metamyelocytes % 1 Myelocytes % 2 Platelet Evaluation Normal Sodium 138 Potassium 3.8 Chloride 97 Carbon Dioxide 26 Anion Gap 19 BUN 23 H Creatinine 0.9 Est GFR ( Amer) > 60 Est GFR (Non-Af Amer) > 60 Random Glucose 177 H Hemoglobin A1c 5.1 Calcium 10.0 Phosphorus 3.4 Magnesium 1.9 Total Bilirubin 0.7 AST 48 H ALT 47 Alkaline Phosphatase 57 Total Protein 6.9 Albumin 4.3 Globulin 2.6 Albumin/Globulin Ratio 1.6 Triglycerides 69 Cholesterol 231 H LDL Cholesterol Direct 135 H HDL Cholesterol 82 H TSH 3rd Generation 0.18 L Addendum Addendum: 01/27/17 17:11 patient was seen and examined at bedside with Dr. Smith. Please Dr. Perez note
--- NOTE | 2017-01-27 17:44 | PN ---
DATE: 01/27/2017 The patient is a 66-year-old black female. Covering for Dr. Butt. Seen in critical care unit, lying in bed, seems to be comfortable, not in any acute distress. However, monitor shows she has tac hycardia with heart rate of 126. She states she did eat. PHYSICAL EXAMINATION: GENERAL: She is awake and alert, communicative. VITAL SIGNS: She is afebrile, pulse 126, respirations 23, blood pressure 137/91. LUNGS: Bilateral fair airflow, no rhonchi or crackle. HEART: S1, S2 audible. No murmur. ABDOMEN: Soft, nontender, no rebound, no guarding. NEUROLOGIC: She is awake and alert, communicative. Moves all extremities. EXTREMITIES: Bilateral legs, no edema. LABORATORY EXAMINATION: WBCs 5.8, hemoglobin 13, hematocrit 38, platelets 174. Chemistry: Sodium 1 38, potassium 3.8, chloride 97, CO2 26, BUN 23, creatinine 0.9, blood sugar of 177. 5.1. Tota l cholesterol 231, LDL is 135. TSH is 0.18. Blood cultures, urine cultures are negative. She had thoracic and cervical spine MRI done that shows no evidence of metastatic disease to the cord or subarachnoid space. ASSESSMENT: 1. Stage IV lymphoma. 2. Hypertension. 3. Seizure disorder. The patient is admitted with new onset of weakness of the right arm and the fo rearm. 4. Mass lesion on the alma, extending into Meckel's cave on right side along the distribution of tri geminal nerve. 5. Sinus tachycardia. 6. Status post neutropenia, but today her white count is in good range. PLAN: The patient is currently on dexamethasone 4 mg q. 6. She is on folic acid 1 mg daily. She is getting Neupogen. She is on deep venous thrombosis prophylaxis. She is on propranolol 80 mg daily. She is on Lamictal and Xanax as needed. We will continue all that. We will follow up CBC and CMP in a.m. Olivia Ferreira MD cc: [id number] TT: 01/27/2017 17:43:39 Confirmation # [id number] Dictation # [id number] en
--- NOTE | 2017-01-28 01:39 | PN ---
DATE: 01/27/2017 The patient is in ICU 128, bed 5. SUBJECTIVE: The patient is seen and examined at the bedside. She is comfortable, talks full sentenc es, no respiratory distress, shoulder pain that she was having yesterday is better, is gone. PHYSICAL EXAMINATION: VITAL SIGNS: Stable. Heart rate is 127 and the patient has been started on Inderal after being seen by the activated sludge operator, O2 sat is 100% on room air, respirations 20, blood pressure is 144/80. HEENT: Head is normocephalic, atraumatic. The patient still complains of numbness on the right side of the face. Swallowing especially with liquids is still an issue with the patient. Examination of the oropharynx reveals no oropharyngeal lesions. NECK: Supple. There is no adenopathy. No jugular venous distention noted. LUNGS: Clear to percussion and auscultation. HEART: Reveals regular rate and rhythm. The patient is tachycardic. ABDOMEN: Soft, nontender. No rebound, rigidity, or guarding is noted. EXTREMITIES: Reveals no cyanosis, clubbing, or edema. Weakness in the right arm and forearm still p ersistent on the right side, which 3/5 motor strength. Strength of the left upper as well as both lo wer extremities is symmetrical. The patient is able to raise her eyebrows, stick out her tongue, smi le, shrug her shoulders without any significant issues. The patient definitely is not able to raise her arm above the right shoulder, which is still of concern to me. The patient did have MRI of the t horacic and cervical spine, which . LABORATORY DATA: From today reveals a white count of 5.8, hemoglobin 13, platelet count 174,000. So dium is 138, K is 3.8, chloride is 97, carbon dioxide is 26, BUN is 23, creatinine 0.9, glucose 177, AST 48, ALT 47. MRI of the thoracic and cervical spine were reviewed and no evidence of any marrow c hanges consistent with marrow involvement or cord compression is evidenced on the scans. MEDICATIONS: The patient is on hydralazine p.r.n., Decadron 4 mg IV q. 6 hours, folic acid. The pat ient is on Granix ANC yesterday was substantially low. We will continue Granix for a total of 10 days, hydrochlorothiazide, Inderal, Lamictal for seizure disorder, Pepcid, Tylenol p.r.n., and Xin ium. ASSESSMENT NOTES AND PLAN: This patient is a 66-year-old -[place] female with stage IV B-baltzaar l small cell lymphocytic lymphoma with a mass on the alma extending into the Meckel's cave and affect ing the trigeminal nerve with numbness in the right side of the face extending to the jaw, who is not a neurosurgical candidate, has been started on definitive radiation therapy to that area where the t umor is there. Hopefully, along with the radiation and the Decadron, the patient should have exquisi te response. The patient has been monitored and kept in the unit for frequent neuro checks to make s ure that her symptoms do not deteriorate while getting the radiation. The patient, if continues to b e stable, could be transferred out to the floor by Monday. We will continue to target the patient to keep euvolemic, euglycemic, and do give gastric and deep venous thrombosis prophylaxis. I discussed the case in detail with Dr. Perez as well. Time spent with the patient and the case greater than 90 minutes. Britni Bynum MD cc: [id number] TT: 01/28/2017 01:39:16 Confirmation # [id number] Dictation # [id number] in
[2017-01-28 05:20] LABS: ADD MANUAL DIFF? NO
[2017-01-28 05:31] LABS: BASO # 0.01 K/mm3 (0.0-2.0); BASO % 0.2 % (0.0-3.0); EOS % 0.2 % (1.5-5.0); GRAN # 3.36 (1.4-6.5); HEMATOCRIT 37.6 % (36.0-48.0); LYMPH # 0.7 (1.2-3.4); LYMPH % 14.2 % (22.0-35.0); MEAN CELL VOLUME 89.1 fL (80.0-105.0); MEAN CORPUSCULAR HEMOGLOBIN 30.1 pg (25.0-35.0); MEAN CORPUSCULAR HGB CONC 33.8 g/dl (31.0-37.0); MEAN PLATELET VOLUME 9.9 fl (7.0-11.0); MONO # 0.9 (0.1-0.6); MONO % 18.4 % (1.0-6.0); PLATELET COUNT 162 10^3/uL (120.0-450.0); RED CELL DISTRIBUTION WIDTH 12.9 % (11.5-14.5)
[2017-01-28] MEDS: Dexamethasone 4 mg/1 ml IVP SCH ×3 (05:34→18:03)
[2017-01-28 05:35] LABS: ALB/GLOB RATIO 1.5 (1.1-1.8); ALKALINE PHOSPHATASE 52 U/L (38-133); ALT/SGPT 55 U/L (7-56); AST/SGOT 42 U/L (15-39); BILIRUBIN,TOTAL 0.8 mg/dL (0.2-1.3); BLOOD UREA NITROGEN 24 mg/dL (7-21); CALCIUM 9.5 mg/dL (8.4-10.5); CARBON DIOXIDE 31 mmol/L (21-33); CHLORIDE 97 mmol/L (98-107); GFR AFRICAN-AMERICAN > 60; GLUCOSE,RANDOM 116 mg/dL (70-110); POTASSIUM 3.7 mmol/L (3.6-5.0); SODIUM 139 mmol/L (132-148); TOTAL PROTEIN 6.6 g/dL (5.8-8.3)
[2017-01-28] MEDS: Propranolol 80 mg ER Cap PO SCH (09:28)
--- NOTE | 2017-01-28 12:58 | PN ---
DATE: 01/28/2017 The patient is in ICU 128, bed 5. REASON FOR CONSULTATION AND FOLLOWUP: Tachycardia, small cell lymphocytic lymphoma with mass in the alma. HISTORY OF PRESENT ILLNESS: The patient is a 66-year-old female with past medical history of stage I V small cell lymphocytic lymphoma, status post chemotherapy in 2016, last chemo about 8 months ago, n ow found to have a mass in the alma. The patient is getting radiation therapy for the mass in the po ns. Denies any chest pain, shortness of breath, palpitation; however, the patient found to have sinu s tachycardia for which Inderal has been started. PHYSICAL EXAMINATION: VITAL SIGNS: Blood pressure 144/96, earlier it was 133/62, respirations 17, pulse 104. The patient is afebrile. HEAD: Normocephalic. EYES: Pupils normal. Conjunctivae normal. NOSE AND THROAT: Normal. NECK: JVP low. Carotid equal. THORAX: AP diameter is normal. LUNGS: Clear. CARDIOVASCULAR: S1, S2. ABDOMEN: Soft, nontender, no organomegaly. EXTREMITIES: No clubbing, no cyanosis. LABORATORY DATA: WBC 5.0. On 01/25, WBC was 2.1. Hemoglobin 12.7, hematocrit 37.6, platelet 162. So dium 139, potassium 3.7, BUN 24, creatinine 0.9, AST 42, ALT 55. TSH 0.18. Cholesterol 231, LDL 135 , HDL 82, triglycerides 69. DIAGNOSES: Stage IV B-cell small cell lymphocytic lymphoma with mass in alma, sinus tachycardia, debi tropenia which has improved, hypertension. The patient's last echo was done on 12/29/2015 which showed normal left ventricular size, borderline left ventricular hypertrophy, normal left ventricular eject ion fraction of 60-65%, trace to mild mitral regurgitation, mild to moderate tricuspid regurgitation, right ventricular systolic pressure 38 mmHg. PLAN: The patient put on propranolol LA 80 mg once a day for tachycardia. The patient getting hepar in 5000 units subq q. 8 hours, hydrochlorothiazide 25 mg daily, Lamictal 200 mg b.i.d., Pepcid 20 mg p.o. daily, Decadron 4 mg IV q. 6 hours, hydralazine 10 mg p.o. q.i.d. p.r.n. for elevated blood pres sure. We will monitor patient closely with you. Waylon Chawla MD cc: [id number] TT: 01/28/2017 12:57:56 Confirmation # [id number] Dictation # [id number] tn
--- NOTE | 2017-01-28 15:32 | CP.PCM.PN ---
<Luis Blair - Last Filed: 01/28/17 15:35> Subjective - Date & Time of Evaluation Date of Evaluation: 01/28/17 Time of Evaluation: 15:30 - Subjective Subjective: ICU progress note. Attending: Dr. Perez Pt seen and examined at bedside. No acute distress. No events overnight. Plan to transfer out of ICU today. Plan to make NPO due to difficulty swallowing. Transfer to telemetry. Objective - Vital Signs/Intake and Output Vital Signs (last 24 hours): Temp Pulse Resp BP Pulse Ox 98.3 F 80 21 144/101 H 100 01/28/17 04:00 01/28/17 14:00 01/28/17 11:00 01/28/17 10:00 01/28/17 11:00 Intake and Output: 01/28/17 01/28/17 06:59 18:59 Intake Total 100 Output Total 100 Balance 0 - Medications Medications: Current Medications Acetaminophen (Tylenol 325mg Tab) 650 mg PO Q4H PRN PRN Reason: Fever >100.4 F Last Admin: 01/27/17 03:59 Dose: 650 mg Camphor/Menthol (Bengay) 0 gm TOP BID PRN PRN Reason: Pain, moderate (4-7) Dexamethasone (Decadron Inj) 4 mg IVP Q6 [facility] Last Admin: 01/28/17 12:50 Dose: 4 mg Famotidine (Pepcid) 20 mg PO DAILY [facility] Last Admin: 01/28/17 09:28 Dose: 20 mg Folic Acid (Folic Acid) 1 mg PO DAILY [facility] Last Admin: 01/28/17 09:28 Dose: 1 mg Heparin Sodium (Porcine) (Heparin) 5,000 units SC Q8 ARVIND PRN Reason: Protocol Last Admin: 01/28/17 13:23 Dose: 5,000 units Hydralazine HCl (Apresoline) 10 mg PO QID PRN PRN Reason: for sbp>160 & diastolic >100 Hydrochlorothiazide (Hydrodiuril) 25 mg PO DAILY [facility] Last Admin: 01/28/17 09:28 Dose: 25 mg Lamotrigine (Lamictal) 200 mg PO BID [facility] Last Admin: 01/28/17 09:27 Dose: 200 mg Propranolol HCl (Inderal La) 80 mg PO DAILY [facility] Last Admin: 03/11/17 09:28 Dose: 80 mg - Labs Labs: 01/28/17 05:00 01/28/17 05:00 - Constitutional Appears: Non-toxic, No Acute Distress - Head Exam Head Exam: ATRAUMATIC, NORMAL INSPECTION, NORMOCEPHALIC - Eye Exam Eye Exam: EOMI - ENT Exam ENT Exam: Mucous Membranes Moist - Neck Exam Neck Exam: Full ROM, Normal Inspection - Respiratory Exam Respiratory Exam: Decreased Breath Sounds. absent: Accessory Muscle Use, Respiratory Distress - Cardiovascular Exam Cardiovascular Exam: Tachycardia, +S1, +S2 - GI/Abdominal Exam GI & Abdominal Exam: Soft, Normal Bowel Sounds. absent: Tenderness - Extremities Exam Extremities Exam: Full ROM, Normal Inspection - Neurological Exam Neurological Exam: Alert, Awake, Oriented x3 Additional comments: Positive dysmetria on right, decreased sensation to pain and light touch on right, decreased muscle strength on right - Psychiatric Exam Psychiatric exam: Anxious - Skin Skin Exam: Dry, Intact, Normal Color, Warm Assessment and Plan - Assessment and Plan (Free Text) Assessment: This is 66 year old female with past medical hx of stage 4 B cell lymphoma, seizure disorder, and HTN presented with 3-4 week history of right sided headache, 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 Brain MRI shows enhancing lesion surrounding the right trigeminal nerve extending from the surface of the alma into Meckel's cave. Neuro: - pt is AAOx3 - currently receiving radiation for brain lesion - on decadron for swelling - cont Seizure precautions - cont to monitor for changes in mentation - continue lamotrigine - Aspiration precautions - MRI cervical spine shows no metastatic disease - thoracic spine mri shows no metastatic disease - Facial numbness secondary to lesion surrounding trigeminal nerve - neurology following Cardio: - Blood pressure stable - tachycardic, currently on propanolol - cardiology following - Maintain MAP >65 - Continue home BP medication of HCTZ Pulm: - Maintain O2 saturation greater than 90% - No respiratory distress at this time - Aspiration precautions GI: -GI ppx -NPO due to swallowing dx ID: - Afebrile, leukopenia has improved - blood and urine cultures negative - Maintain normothermia heme/onc - pt is receiving radiation - radiation oncology following - Oncology following - neurosurgery consulted. they do not recommend biopsy Nephro: - Replenish electrolytes as needed - Maintain euvolemia ENT -consult placed with Dr. Gee -NPO -swallow eval Dispo- consult placed with Dr. Gee, continue RT, transfer out of ICU to telemetry. discussed with attending <Samir Perez - Last Filed: 01/28/17 19:06> Objective - Vital Signs/Intake and Output Vital Signs (last 24 hours): Temp Pulse Resp BP Pulse Ox 98.6 F 78 20 150/85 100 01/28/17 17:34 01/28/17 18:00 01/28/17 17:34 01/28/17 17:34 01/28/17 11:00 Intake and Output: 01/28/17 01/28/17 06:59 18:59 Intake Total 100 Output Total 100 Balance 0 - Medications Medications: Current Medications Acetaminophen (Tylenol 325mg Tab) 650 mg PO Q4H PRN PRN Reason: Fever >100.4 F Last Admin: 01/27/17 03:59 Dose: 650 mg Camphor/Menthol (Bengay) 0 gm TOP BID PRN PRN Reason: Pain, moderate (4-7) Dexamethasone (Decadron Inj) 4 mg IVP Q6 [facility] Last Admin: 01/28/17 18:03 Dose: 4 mg Famotidine (Pepcid) 20 mg PO DAILY [facility] Last Admin: 01/28/17 09:28 Dose: 20 mg Folic Acid (Folic Acid) 1 mg PO DAILY [facility] Last Admin: 01/28/17 09:28 Dose: 1 mg Heparin Sodium (Porcine) (Heparin) 5,000 units SC Q8 ARVIND PRN Reason: Protocol Last Admin: 01/28/17 13:23 Dose: 5,000 units Hydralazine HCl (Apresoline) 10 mg PO QID PRN PRN Reason: for sbp>160 & diastolic >100 Hydrochlorothiazide (Hydrodiuril) 25 mg PO DAILY [facility] Last Admin: 01/28/17 09:28 Dose: 25 mg Sodium Chloride (Sodium Chloride 0.9%) 1,000 mls @ 100 mls/hr IV .Q10H [facility] Last Admin: 01/28/17 18:04 Dose: 100 mls/hr Lamotrigine (Lamictal) 200 mg PO BID [facility] Last Admin: 01/28/17 18:01 Dose: 200 mg Propranolol HCl (Inderal La) 80 mg PO DAILY [facility] Last Admin: 01/28/17 09:28 Dose: 80 mg - Labs Labs: 01/28/17 05:00 01/28/17 05:00 Addendum Addendum: 01/28/17 18:59 patient was seen and examined and discussed with Dr. Blair shoulder to shoulder. His note reflects my exam, assessment and plan, except as below. Meds/ Labs/ONE reviewed. Patient has occasinally recurring voice hoarseness and dysphagia. She sees Dr. Marshall for this problem and reports that PMD is aware about it. Today she reports again this symptoms. Will get her NPO, IVF, Dr. Marshall re-eval and speech and swallow. Her neuro exam is unchanged with mild RUE weakness. Will continue with decadrone and XRT as per RadOnc. HR controlled. Ok to transfer to tele. Discussed with dr. Askew.
[2017-01-28] MEDS: Sodium Chloride 0.9% 1,000 ML IV SCH (18:04)
[2017-01-29] MEDS: Dexamethasone 4 mg/1 ml IVP SCH ×4 (00:27→17:11)
[2017-01-29 06:32] LABS: HEMATOCRIT 35.4 % (36.0-48.0); MEAN CELL VOLUME 90.5 fL (80.0-105.0); MEAN CORPUSCULAR HEMOGLOBIN 30.2 pg (25.0-35.0); MEAN CORPUSCULAR HGB CONC 33.3 g/dl (31.0-37.0); MEAN PLATELET VOLUME 9.9 fl (7.0-11.0); PLATELET COUNT 143 10^3/uL (120.0-450.0)
[2017-01-29 06:33] LABS: ADD MANUAL DIFF? YES
[2017-01-29 06:35] LABS: ALB/GLOB RATIO 1.5 (1.1-1.8); ALKALINE PHOSPHATASE 53 U/L (38-133); ALT/SGPT 48 U/L (7-56); AST/SGOT 36 U/L (15-39); BILIRUBIN,TOTAL 0.8 mg/dL (0.2-1.3); BLOOD UREA NITROGEN 23 mg/dL (7-21); CALCIUM 9.6 mg/dL (8.4-10.5); CARBON DIOXIDE 32 mmol/L (21-33); CHLORIDE 100 mmol/L (98-107); GFR AFRICAN-AMERICAN > 60; GLUCOSE,RANDOM 111 mg/dL (70-110); POTASSIUM 3.6 mmol/L (3.6-5.0); SODIUM 141 mmol/L (132-148); TOTAL PROTEIN 6.3 g/dL (5.8-8.3)
[2017-01-29] MEDS: Propranolol 80 mg ER Cap PO SCH (09:03)
[2017-01-29 09:21] LABS: METAMYELOCYTE 3 %; MYELOCYTE 3 %; NEUTROPHIL 40 % (50.0-70.0)
--- NOTE | 2017-01-29 16:28 | PN ---
DATE: 01/29/2017 The patient is in room 260, bed 2. REASON FOR CONSULTATION AND FOLLOWUP: Tachycardia, small cell lymphocytic lymphoma with mass in the alma. HISTORY OF PRESENT ILLNESS: The patient is a 66-year-old female with past medical history significan t for stage IV small cell lymphocytic lymphoma, status post chemotherapy in 2016. Last chemo about 8 months ago. Now found to have a mass in the alma. The patient is getting radiation therapy for the mass in the alma. Denies any chest pain, shortness of breath, palpitation. The patient found to young ve sinus tachycardia, for which we have started on Inderal. PHYSICAL EXAMINATION: VITAL SIGNS: Blood pressure 134/71, respirations 16, pulse 72. The patient is afebrile. HEAD: Normocephalic. EYES: Pupils normal. Conjunctivae normal. NECK: JVP low. Carotid equal. THORAX: AP diameter normal. LUNGS: Clear. CARDIOVASCULAR: S1, S2. ABDOMEN: Soft, no tenderness, no organomegaly. Bowel sounds normal. EXTREMITIES: No clubbing, no cyanosis. LABORATORY DATA: WBC 5.0, hemoglobin 11.8, hematocrit 35.4, platelet 143. Sodium 141, potassium 3.6 , BUN 23, creatinine 0.8, random glucose 111, total bilirubin 0.8. AST, ALT normal. Cholesterol 231 , LDL 135, HDL 82. TSH 0.18. DIAGNOSES: Stage IV B-cell small cell lymphocytic lymphoma with mass in the alma, sinus tachycardia, neutropenia which has improved, hypertension. Last echo 12/29/2015 showed normal left ventricular si ze, borderline left ventricular hypertrophy, normal left ventricular ejection fraction 60%-65%, trace to mild mitral regurgitation, mild to moderate tricuspid regurgitation, right ventricular systolic p ressure 38 mmHg. PLAN: The patient is getting heparin 5000 units subQ q. 8 hours, Decadron 4 mg IV q. 6 hours, folic acid 1 mg daily, propranolol LA/Inderal-LA 80 mg p.o. daily, Pepcid 20 mg p.o. daily. We will contin ue present therapy, monitor blood pressure and heart rate, and we will continue to follow closely wit tristin aponte. Waylon Chawla MD cc: [id number] TT: 01/29/2017 16:27:02 Confirmation # [id number] Dictation # [id number] en
--- NOTE | 2017-01-29 16:43 | PN ---
DATE: 01/29/2017 The patient is 66 years old, seen and examined, lying in bed. No respiratory distress. No nausea, v omiting, no diarrhea. PHYSICAL EXAMINATION: VITAL SIGNS: She is afebrile, pulse 70, respirations 16, blood pressure is 168/100. LUNGS: Bilateral fair airflow, no rhonchi or crackle. HEART: S1, S2 audible. ABDOMEN: Soft, nontender, no rebound, no guarding. NEUROLOGIC: She is awake and alert, communicative. EXTREMITIES: Bilateral legs, no edema. LABORATORY EXAMINATION: WBCs 5.0, hemoglobin 11.8, hematocrit 35.4, platelet of 143. Chemistry: So dium 141, potassium 3.6, chloride 100, CO2 32, BUN 23, creatinine 0.8, blood sugar of 111. She had t horacic spine and cervical spine MRI done that shows no evidence of metastatic disease to the cord or subarachnoid space. ASSESSMENT: 1. Stage IV B-cell lymphoma. 2. Hypertension. 3. Brain mets since it has enhancing lesion in the right trigeminal nerve extension and surface of t he alma into Meckel's cave. 4. Sinus tachycardia that has resolved with Inderal. 5. Swallowing difficulty. PLAN: The patient is currently on IV fluids. We are awaiting swallowing eval and neutropenia that h as resolved. The patient is receiving Neupogen. Currently, she is on dexamethasone, folic acid. Ziyad sifuentes is getting Lamictal for seizure precaution and she is on IV fluid. We will follow up her CBC and C MP in a.m. Dr. Butt will follow up patient in a.m. Olivia Ferreira MD cc: [phone] TT: 01/29/2017 16:43:05 Confirmation # [id number] Dictation # [id number] en
--- NOTE | 2017-01-29 20:09 | CP.PCM.PN ---
Subjective - Date & Time of Evaluation Date of Evaluation: 01/28/17 Time of Evaluation: 16:00 - Subjective Subjective: No acute events. Right hand remains unchanged as does numnbess on face ROS: no fevers; chills; n/v; bowel/urinary complaints; CP: SOB; headaches; visual changes; Objective - Vital Signs/Intake and Output Vital Signs (last 24 hours): Temp Pulse Resp BP Pulse Ox 98.1 F 72 19 170/99 H 97 01/29/17 18:57 01/29/17 18:57 01/29/17 18:57 01/29/17 18:57 01/29/17 06:00 - Medications Medications: Current Medications Acetaminophen (Tylenol 325mg Tab) 650 mg PO Q4H PRN PRN Reason: Fever >100.4 F Last Admin: 01/27/17 03:59 Dose: 650 mg Camphor/Menthol (Bengay) 0 gm TOP BID PRN PRN Reason: Pain, moderate (4-7) Dexamethasone (Decadron Inj) 4 mg IVP Q6 [facility] Last Admin: 01/29/17 17:11 Dose: 4 mg Famotidine (Pepcid) 20 mg PO DAILY [facility] Last Admin: 01/29/17 09:07 Dose: 20 mg Folic Acid (Folic Acid) 1 mg PO DAILY [facility] Last Admin: 01/29/17 09:04 Dose: 1 mg Heparin Sodium (Porcine) (Heparin) 5,000 units SC Q8 ARVIND PRN Reason: Protocol Last Admin: 01/29/17 14:20 Dose: 5,000 units Hydralazine HCl (Apresoline) 10 mg PO QID PRN PRN Reason: for sbp>160 & diastolic >100 Hydrochlorothiazide (Hydrodiuril) 25 mg PO DAILY [facility] Last Admin: 01/29/17 09:04 Dose: 25 mg Sodium Chloride (Sodium Chloride 0.9%) 1,000 mls @ 100 mls/hr IV .Q10H [facility] Last Admin: 01/28/17 18:04 Dose: 100 mls/hr Lamotrigine (Lamictal) 200 mg PO BID [facility] Last Admin: 01/29/17 17:12 Dose: 200 mg Propranolol HCl (Inderal La) 80 mg PO DAILY [facility] Last Admin: 01/29/17 09:03 Dose: 80 mg - Labs Labs: 01/29/17 06:00 01/29/17 06:00 - Constitutional Appears: Well - Respiratory Exam Respiratory Exam: Clear to Ausculation Bilateral, NORMAL BREATHING PATTERN - Cardiovascular Exam Cardiovascular Exam: REGULAR RHYTHM, +S1, +S2. absent: Murmur - GI/Abdominal Exam GI & Abdominal Exam: Soft, Normal Bowel Sounds. absent: Tenderness - Extremities Exam Extremities Exam: Full ROM, Normal Capillary Refill, Normal Inspection. absent : Joint Swelling, Pedal Edema - Neurological Exam Additional comments: decreased sensation on right aspect of face; unable to full extend RUE Assessment and Plan - Assessment and Plan (Free Text) Plan: Ms. Barlow deysi 66 y/o woman with pmhx significant for stage IV small cell lymphocytic lymphoma s/p R-CVP (last received 8 months preivously) who has not beenf ound to have a mass in the alma and currently receiving XRT. Unclear eitiology of the alma mass but may be related to lymphoma. Barring now contraindication from NS or neurology would recommend CSF sampling by IR to be sent for flow cytometry. Pending confirmation for lymphoma may consider additional systemic or intrathecal chemotherapy treatments. Dima Bynum MD Hematology/Oncology P: [phone]
--- NOTE | 2017-01-29 20:12 | CP.PCM.PN ---
Subjective - Date & Time of Evaluation Date of Evaluation: 01/29/17 Time of Evaluation: 17:00 - Subjective Subjective: No acute events. Right hand remains unchanged as does numnbess on face ROS: no fevers; chills; n/v; bowel/urinary complaints; CP: SOB; headaches; visual changes; Objective - Vital Signs/Intake and Output Vital Signs (last 24 hours): Temp Pulse Resp BP Pulse Ox 98.1 F 72 19 170/99 H 97 01/29/17 18:57 01/29/17 18:57 01/29/17 18:57 01/29/17 18:57 01/29/17 06:00 - Medications Medications: Current Medications Acetaminophen (Tylenol 325mg Tab) 650 mg PO Q4H PRN PRN Reason: Fever >100.4 F Last Admin: 01/27/17 03:59 Dose: 650 mg Camphor/Menthol (Bengay) 0 gm TOP BID PRN PRN Reason: Pain, moderate (4-7) Dexamethasone (Decadron Inj) 4 mg IVP Q6 [facility] Last Admin: 01/29/17 17:11 Dose: 4 mg Famotidine (Pepcid) 20 mg PO DAILY [facility] Last Admin: 01/29/17 09:07 Dose: 20 mg Folic Acid (Folic Acid) 1 mg PO DAILY [facility] Last Admin: 01/29/17 09:04 Dose: 1 mg Heparin Sodium (Porcine) (Heparin) 5,000 units SC Q8 ARVIND PRN Reason: Protocol Last Admin: 01/29/17 14:20 Dose: 5,000 units Hydralazine HCl (Apresoline) 10 mg PO QID PRN PRN Reason: for sbp>160 & diastolic >100 Hydrochlorothiazide (Hydrodiuril) 25 mg PO DAILY [facility] Last Admin: 01/29/17 09:04 Dose: 25 mg Sodium Chloride (Sodium Chloride 0.9%) 1,000 mls @ 100 mls/hr IV .Q10H [facility] Last Admin: 01/28/17 18:04 Dose: 100 mls/hr Lamotrigine (Lamictal) 200 mg PO BID [facility] Last Admin: 01/29/17 17:12 Dose: 200 mg Propranolol HCl (Inderal La) 80 mg PO DAILY [facility] Last Admin: 01/29/17 09:03 Dose: 80 mg - Labs Labs: 01/29/17 06:00 01/29/17 06:00 - Constitutional Appears: Well - Eye Exam Eye Exam: EOMI, Normal appearance, PERRL - Respiratory Exam Respiratory Exam: Clear to Ausculation Bilateral, NORMAL BREATHING PATTERN - Cardiovascular Exam Cardiovascular Exam: REGULAR RHYTHM, +S1, +S2. absent: Murmur - GI/Abdominal Exam GI & Abdominal Exam: Soft, Normal Bowel Sounds. absent: Tenderness - Extremities Exam Extremities Exam: Full ROM, Normal Capillary Refill, Normal Inspection. absent : Joint Swelling, Pedal Edema - Neurological Exam Neuro motor strength exam: Left Upper Extremity: 5, Left Lower Extremity: 5, Right Lower Extremity: 5 Additional comments: Unable to fully extend RUE; diminished sensation to light touch on right aspect of maxilla, chin, and forehead Assessment and Plan - Assessment and Plan (Free Text) Plan: Ms. Barlow deysi 66 y/o woman with pmhx significant for stage IV small cell lymphocytic lymphoma s/p R-CVP (last received 8 months preivously) who has not beenf ound to have a mass in the alma and currently receiving XRT. Unclear eitiology of the alma mass but may be related to lymphoma. Barring now contraindication from NS or neurology would recommend CSF sampling by IR to be sent for flow cytometry. Pending confirmation for lymphoma may consider additional systemic or intrathecal chemotherapy treatments. Dima Bynum MD Hematology/Oncology P: [phone]
--- NOTE | 2017-01-29 21:22 | CON ---
DATE: 01/29/2017 REASON FOR CONSULTATION: Dysphagia. HISTORY OF PRESENT ILLNESS: The patient is a 66-year-old female well known to the otolaryngology ser . She is an outpatient who since 09/2016 has experienced dysphagia. She subsequently was found to have small cell lymphoma and in 12/2016 was found to have metastasis to the alma as well as right M wild's cave. On outpatient scope, she has a known left vocal cord paresis. She underwent a modifie d barium swallow in 10/2016, which showed some aspiration with liquids and therefore was recommended to follow a soft and thickened liquid diet. She is currently admitted to [facility] [place] to right upper extremity weakness and is currently being treated with radiation therapy to the suspected lymphoma metastasis as per neurosurgical recommendations. Due to her continued complaints o f dysphagia, ear, nose, and throat service was consulted for further evaluation. Upon questioning, t deisi patient endorses the history as above. She notes also a breathy voice, which has been stable over the past few months with no acute change. She notes her dysphagia waxes and wanes, but has been rel atively stable since we last saw her in the office earlier in January. She denies any respiratory dist ress, difficulty breathing or noisy breathing and otherwise has no other ear, nose, and throat compla ints at this time. PAST MEDICAL HISTORY: Seizure disorder, hypertension and small cell lymphoma. ALLERGIES: No known drug allergies. SOCIAL HISTORY: The patient denies tobacco abuse. PHYSICAL EXAMINATION: VITAL SIGNS: Blood pressure 130/70, afebrile, heart rate 80, respiratory rate 16, saturating 98% on room air. GENERAL: The patient is awake and alert. She is oriented x 3. She is in no acute distress, slightl y breathy quality of voice. HEAD: Normocephalic, atraumatic. EARS: External auricles without masses or lesions. Nose: Nares patent bilaterally. No purulent dis charge noted. FACE: Symmetric facial motion. There is anesthesia V1, V2 and V3 distributions on the right. ORAL CAVITY AND OROPHARYNX: Moist mucous membranes. Tongue mobile and midline. Symmetric palate el evation. NECK: No lymphadenopathy. Trachea midline. PROCEDURE: Flexible fiberoptic laryngoscopy. At this point, a flexible fiberoptic scope was inserted into the right naris. No purulence or discharge was noted. Scope was then passed posteriorly to th e nasopharynx. No masses or lesions were seen. The scope was then flexed down and into the orophary nx. Epiglottis was noted to be crisp in both lingual and laryngeal surfaces. Arytenoids were visual ized bilaterally without masses or lesions. True cords are visualized bilaterally without masses or lesions. However, upon phonation, there was paretic motion noted to the left cord, normal motion not ed to the right cord. There is incomplete glottic closure with phonation, especially noted posterior ly. Piriform sinuses were evaluated without masses or lesions. Base of tongue was noted to be rubia l in appearance. At this point, the scope was withdrawn. The patient tolerated the procedure well w ith no complications. IMAGING: As reviewed above. LABORATORIES: White blood cell count 5. Of note, patient was noted to be neutropenic upon admission. MEDICATIONS: Currently on Decadron 4 q. 6, Lamictal, propranolol. ASSESSMENT AND PLAN: The patient is a 66-year-old female with dysphagia, known left vocal cord pares is, currently undergoing radiation therapy for central nervous system metastasis of lymphoma. I recommend speech and swallow evaluation with possible modified barium swallow. The patient is also recommended as an outpatient to undergo a . She is encouraged to follow up with us as an outpa tient as well once she is discharged home from the hospital. This was discussed with the patient who understands the above plan. Thank you for allowing us to participate in this patient's care. Milton Prescott DO cc: [id number] TT: 01/29/2017 21:21:51 Confirmation # [id number] Dictation # [id number] moise
[2017-01-30] MEDS: Sodium Chloride 0.9% 1,000 ML IV SCH ×4 (00:12→09:41)
[2017-01-30] MEDS: Dexamethasone 4 mg/1 ml IVP SCH ×5 (00:12→23:59)
[2017-01-30 06:27] LABS: ADD MANUAL DIFF? NO
[2017-01-30 06:51] LABS: ALB/GLOB RATIO 1.7 (1.1-1.8); ALKALINE PHOSPHATASE 59 U/L (38-133); ALT/SGPT 43 U/L (7-56); AST/SGOT 34 U/L (15-39); BILIRUBIN,TOTAL 0.8 mg/dL (0.2-1.3); BLOOD UREA NITROGEN 21 mg/dL (7-21); CALCIUM 9.6 mg/dL (8.4-10.5); CARBON DIOXIDE 32 mmol/L (21-33); CHLORIDE 99 mmol/L (98-107); GFR AFRICAN-AMERICAN > 60; GLUCOSE,RANDOM 91 mg/dL (70-110); POTASSIUM 3.2 mmol/L (3.6-5.0); SODIUM 137 mmol/L (132-148)
[2017-01-30 07:15] LABS: BASO # 0.01 K/mm3 (0.0-2.0); BASO % 0.2 % (0.0-3.0); GRAN # 2.88 (1.4-6.5); GRAN % 49.9 % (50.0-68.0); HEMATOCRIT 35.2 % (36.0-48.0); LYMPH # 1.3 (1.2-3.4); LYMPH % 21.7 % (22.0-35.0); MEAN CELL VOLUME 89.3 fL (80.0-105.0); MEAN CORPUSCULAR HEMOGLOBIN 29.9 pg (25.0-35.0); MEAN CORPUSCULAR HGB CONC 33.5 g/dl (31.0-37.0); MEAN PLATELET VOLUME 10.4 fl (7.0-11.0); MONO # 1.6 (0.1-0.6); MONO % 28.2 % (1.0-6.0); PLATELET COUNT 138 10^3/uL (120.0-450.0); RED CELL DISTRIBUTION WIDTH 12.8 % (11.5-14.5); WHITE BLOOD COUNT 5.8 10^3/ul (4.5-11.0)
--- NOTE | 2017-01-30 08:35 | PN ---
DATE: 01/28/2017 The patient is a 66-year-old, seen and examined lying in bed. She was seen in ICU, does not have goo d appetite. She states she is not used to eating meals so frequency, however, does not complain of a ny shortness of breath. No more palpitation. VITAL SIGNS: She is afebrile, pulse 85, respirations 20, blood pressure 150/85. LUNGS: Bilateral fair airflow. No rhonchi or crackle. HEART: S1, S2 audible. ABDOMEN: Soft, nontender, no rebound, no guarding. NEUROLOGICALLY: She is awake and alert. Answers appropriately. BILATERAL LEGS: No edema, no ulcer. LABORATORY EXAMINATION: WBC is 5.0, hemoglobin 12.7, hematocrit 37, platelet of 162. Chemistry: So dium 137, potassium 3.7, chloride 97, CO2 of 31, BUN 24, creatinine 0.9. Blood sugar of 116. Urine culture, blood cultures are negative. ASSESSMENT AND PLAN: 1. Early respiratory distress. There was suspicion of glottic edema, so the patient was closely watc hed in ICU. She seems to be doing well now, status post external radiation. 2. Stage IV small cell lymphocytic lymphoma. 3. Sinus tachycardia, stable with . 4. Status post neutropenia that has improved with Neupogen. 5. History of hypertension. 6. Mass lesion in the alma extending into Meckel cave on the right side. PLAN: The patient is being transferred to telemetry, and maintain her on Decadron 4 mg q. 6. That m ight be tapered down according with Dr. Bynum's recommendation. She is receiving Neupogen. She is on DVT prophylaxis. She is on Pepcid. Encourage out of bed to chair. Physical therapy evaluation will be requested. Olivia Ferreira MD cc: [phone] TT: 01/28/2017 20:00:01 Confirmation # [id number] Dictation # [id number] omayra
[2017-01-30] MEDS: Propranolol 80 mg ER Cap PO SCH (09:35)
--- NOTE | 2017-01-30 09:59 | PN ---
DATE: 01/30/2017 SUBJECTIVE: A 66-year-old black female admitted to the hospital with right upper extremity weakness and metastatic lymphoma in the alma of the brain, dysphagia and neutropenia. The patient had been in ICU. She was transferred back to the floor. Her white count is up to 5.8. Her hemoglobin is stabl e at 11.8. She has had a history of hypertension and seizure disorder and stage IV lymphoma. VITAL SIGNS: Blood pressure is 142/80. She is afebrile. Vital signs are stable. She still has ron n and weakness in the right upper extremity. She did have an MRI of the cervical spine and the thoracic spine which are negative for metastatic di sease. She will have a plain x-ray of the right shoulder today to rule out bone metastasis, and she will start radiation to the brain as per Dr. Coleman. PHYSICAL EXAMINATION: Unchanged. 12-POINT REVIEW OF SYSTEMS: Unremarkable. PLAN: Repeat her x-ray. Also, her potassium is slightly low at 3.2; will be replaced. Will follow the patient postradiation. Alex Butt MD cc: [id number] TT: 01/30/2017 09:58:13 Confirmation # [id number] Dictation # [id number] [email or web address]
[2017-01-30] MEDS ORDERED: Propranolol 80 mg ER Cap PO SCH (10:10)
[2017-01-30] MEDS ORDERED: Potassium Chloride 20 mEq ER Tab PO ONE (10:19)
--- NOTE | 2017-01-30 10:29 | PN ---
DATE: 01/30/2017 REASON FOR CONSULTATION AND FOLLOWUP: Tachycardia, small cell lymphocytic lymphoma with metastases t o the alma. 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 Now, patient was found a mass in the alma, getting radiation therapy. Denies any chest pain, shortness of breath , any palpitation. The patient was initially admitted to the floor and then transferred to ICU, over the weekend transferred back to the telemetry. Denies any chest pain, shortness of breath, any palp itation. The patient was tachycardia, started on propranolol. Hemodynamically stable. Tachycardia significantly improved and now is on 80 mg of propranolol once a day. PHYSICAL EXAMINATION: VITAL SIGNS: Temperature afebrile, heart rate 71, blood pressure 142/80. HEENT: PERRLA. Extraocular muscles intact. NECK: Supple. No carotid bruits. No thyromegaly. CHEST: Clear to auscultation. HEART: S1, S2 regular. ABDOMEN: Soft. EXTREMITIES: Clubbing, cyanosis negative. BLOOD WORKUP: WBC 5.8, hemoglobin 11.8, hematocrit 35.2, platelet count 138. Chemistry shows sodium 137, potassium 3.2, chloride 99, carbon dioxide 32, anion gap of 9, BUN 21, creatinine 0.9, alkaline phosphatase , total protein 6, albumin 3.2, albumin/globulin ratio 1.7. IMPRESSION: Sinus tachycardia, improved on propranolol, hypokalemia, anemia, stage IV B-cell lymphom a, lymphocytic leukemia with a mass in the alma, neutropenia is completely resolved. Last echo 2015 showed normal left ventricular function, borderline left ventricular hypertrophy, normal e jection fraction %, trace to mild mitral regurgitation, mild to moderate tricuspid regurgitation , right ventricular systolic pressure 38. RECOMMENDATION: Continue Decadron as per hematology/oncology. Continue deep venous thrombosis proph ylaxis. Propranolol LA patient is on 80, we will increase to 120 mg. Monitor in telemetry 24 hours with increasing dose of propranolol. If blood pressure and heart rate remains stable, we will discon tinue telemetry tomorrow. Thank you, Dr. Butt, for providing us the opportunity in taking care of the patient. Waylon Perez MD cc: [id number] TT: 01/30/2017 10:28:45 Confirmation # [id number] Dictation # [id number] en
--- NOTE | 2017-01-30 15:20 | RAD ---
PROCEDURE: Radiographs of the Right Shoulder HISTORY: pain rt s COMPARISON: No prior. FINDINGS: BONES: Normal. No fracture. JOINTS: Normal. Glenohumeral and acromioclavicular joints preserved. No osteoarthritis. SOFT TISSUES: Normal. OTHER FINDINGS: None. IMPRESSION: Normal radiographs of the right shoulder.
[2017-01-30] MEDS ORDERED: Gadodiamide 287 MG/ML VIAL (15ML) IV ONE (16:45)
--- NOTE | 2017-01-30 23:54 | PN ---
DATE: 01/30/2017 The patient is currently on telemetry 260, bed 2. PROBLEM: This is a 66-year-old female who was admitted with recent onset of weakness in the right ar m, unable to raise the arm above the shoulder, most of the weakness in the arm and forearm, along wit h some degree of shoulder pain associated with a slightly older finding of new onset of numbness and tingling on the right side of the face in the distribution of the trigeminal nerve, with episodes of recurrent aspiration seen by ENT, had an MRI of the brain as an outpatient that showed a lesion that was encroaching on the alma and extending into the Meckel's cave along the distribution of the trigem inal nerve, consistent with recurrent lymphoma. Biopsy was not feasible because of the location, it was in a strategically difficult place to biopsy. The patient was seen by the neurosurgeon and empirically started on radiation with the assumption sania t this was a recurrence of the original process of stage IV small cell lymphocytic lymphoma. The __ ___ between the patient being in remission or recurrence is about 4 months. The patient since admiss ion had been started electively on radiation to the brain. She has been started on IV Decadron. She was tachycardic on admission. Has been put on beta blockers, inderal, and the tachycardia significa ntly improved. The patient has had 3 doses of radiation as well and overall the patient's clinical s girard has stabilized and slightly improved. The patient was transferred to the unit for observation a bout starting radiation, since the tumor was located in strategic position. Since she was stable, th e patient has been transferred back to telemetry where she is being watched at this point. Tachycard ia has significantly improved. She is on Inderal 80 mg once a day. Subjectively, the patient feels that her weakness in the right arm is better, shoulder pain is better. She has been set up for x-ray s of the shoulder and MRI today, which we will review, once the results are available. PHYSICAL EXAMINATION: GENERAL: The patient is awake, alert, and oriented, in no significant distress. VITAL SIGNS: She is afebrile, heart rate is 71, blood pressure is 142/80. HEENT: Head is normocephalic, atraumatic. Conjunctivae pale. Sclerae are anicteric. Pupils are e qually reactive to light and accommodation. NECK: Supple. There is no adenopathy. No thyromegaly is noted. LUNGS: Relatively clear to percussion and auscultation. HEART: Reveals S1 and S2 to be normal. No gallop or murmur is heard. ABDOMEN: Soft, nontender. Liver and spleen are not palpable at this time. EXTREMITIES: Reveals no cyanosis, clubbing, or edema. Previously noted examination of the right arm weakness is slightly better. The shoulder pain has definitely improved, may be secondary to the shelton roids, but the weakness has not completely gone away at this point in time. The patient still has nu mbness on the right side of her the face, extending to her jaw. Still has episodes where she has dif ficulty in swallowing. Left upper extremity and left lower extremity strength exam is 5/5. The mk ent definitely is unable to fully extend the right upper extremity, with diminished sensation to ligh t touch on the right aspect of the maxillary chin and her forehead. LABORATORY DATA: From today was reviewed and they revealed the following: Today's white count is 5. 8, hemoglobin 11.8, hematocrit 35, platelet count 138,000. ANC is 2.88 at this time. Chemistries we re reviewed. Chemistries reveal a sodium of 137, K is 3.2, which is being replaced. BUN is 21, crea tinine 0.9. LFTs and alkaline phosphatase are within normal limits. Cultures to date have been nega tive. MEDICATIONS: The patient's medications were reviewed. She is on hydralazine 10 mg q.i.d. p.r.n., De cadron 4 mg q. 6h, folic acid 1 mg daily. She is on heparin 5000 units subq q. 8 hours, Inderal 120 mg p.o. daily. She is on K-Dur 20 mEq daily. She is on Lamictal 200 mg b.i.d. for her seizure disor efrain, Pepcid 20 mg p.o. daily. She is on IV fluids 100 mL an hour, and Tylenol p.r.n. for temperature or pain. ASSESSMENT NOTES AND PLAN: The patient has stage IV small cell lymphocytic lymphoma affecting the po ns, extending into the Meckel's cave. Currently on treatments with radiation and IV steroids. We wi ll have to formulate a treatment plan. I am going to check with Neurology, whether there is a role f or spinal tap at some point, even though the MR of the cervical, thoracic spine showed no enhancement of the spinal cord or involvement of the marrow. Plan would be to start the patient again on systemic chemotherapy with Rituxan and a drug such as Simeon damustine, then add a drug like Imbruvica down the road. Currently, we will let her complete the rad iation before making treatments for her underlying lymphoma. Routine post exam instructions have bee n given to the patient. We will discuss the findings of the shoulder MRI, once available, with the gerhard singh and the primary doctor, Dr. uBtt. Labs for a.m. have been requested. Britni Bynum MD cc: [id number] TT: 01/30/2017 23:53:30 Confirmation # [id number] Dictation # [id number] ln
[2017-01-31] MEDS: Dexamethasone 4 mg/1 ml IVP SCH ×4 (06:15→23:21)
--- NOTE | 2017-01-31 06:15 | PN ---
DATE: 01/31/2017 REASON FOR CONSULTATION AND FOLLOWUP: Tachycardia and small cell lymphoma with metastasis to the bra in. BRIEF CLINICAL HISTORY: A 66-year-old female with past medical history significant for stage IV lymp hocytic lymphoma, status post chemotherapy 2015, last chemo 8 months ago and now the patient found to have mass in the brain, possibly metastatic disease to the brain. Was found to be tachycardiac, the n I started on propranolol, hemodynamically stable, was on 80 mg, increased to 120. Denies any chest pain, shortness of breath, any palpitation. PHYSICAL EXAMINATION: VITAL SIGNS: Temperature afebrile, heart rate 77, blood pressure 142/80. HEENT: PERRLA. Extraocular muscles intact. NECK: Supple. No carotid bruits. No thyromegaly. CHEST: Clear to auscultation. HEART: S1, S2 regular. ABDOMEN: Soft. EXTREMITIES: Clubbing and cyanosis negative. LABORATORY DATA: Blood workup as follows: WBC 5.7, hemoglobin 11.8, hematocrit 35.2, platelet count 138. IMPRESSION: Lymphoma with mets, status post chemo, status post metastatic disease to the brain, sinu s tachycardia resolved with propranolol, electrolyte imbalance, status post MRI on IV fluid, last ech o 12/29/2015 shows normal left ventricular function, borderline left ventricular hypertrophy, normal ejection fraction, trace to mild mitral regurgitation, mild to moderate tricuspid regurgitation, syst olic pressure 38. Last echo by JUSTIN dated 12/29/2015, ejection fraction 65%. Repeat echo 12/21/2015 ejection fraction 65%. The patient is getting IV fluid 100 mL, now I will discontinue and we will fo llow with you. We will add p.r.n. hydralazine for high blood pressure. We will follow with you. Thank you, Dr. Bynum for providing the opportunity in taking care of the patient and we will discon tinue telemetry as well. Waylon Perez MD cc: [id number] TT: 01/31/2017 06:14:29 Confirmation # [id number] Dictation # [id number] tn
[2017-01-31] MEDS: Potassium Chloride 20 mEq ER Tab PO SCH (09:00)
--- NOTE | 2017-01-31 09:27 | MRI ---
PROCEDURE: MRI of the right shoulder with and without contrast HISTORY: h/o stage IV lymphoma w/ rt shoulder pain weakness COMPARISON: TECHNIQUE: MRI of the right shoulder was performed in multiple planes using multiple pulse sequences including postcontrast imaging. 15 cc of Omniscan were injected FINDINGS: There is a complete tear of the rotator cuff with tendon retraction and muscular atrophy. There is also a tear of the long head of the biceps tendon. There is a large joint effusion and a large amount of fluid in the subdeltoid and subacromial space. The glenoid labrum is intact. The acromioclavicular joint shows mild degeneration. There is no adenopathy or evidence of bony metastatic disease. There is enhancement of the synovial membranes which is an expected finding. IMPRESSION: Complete tear and retraction of the rotator cuff. Large joint effusion.
[2017-01-31] MEDS: Propranolol 60 mg ER Cap PO SCH (09:52)
[2017-01-31] MEDS: Menthol/Methyl Salicylate Ointment(1 oz) TOP PRN (17:28)
[2017-01-31] MEDS ORDERED: Albuterol-Ipratrop 3 mg / 0.5 (3 ml) UD IH STA (21:43)
--- NOTE | 2017-02-01 01:42 | PN ---
DATE: 01/31/2017 The patient is in room 260, bed 2. PROBLEM: This is a 66-year-old female with stage IV small cell lymphocytic lymphoma currently admitt ed to the hospital with new findings, mass on the surface of the brain at the level of the alma exten ding into the Meckel's cave with tingling and numbness and dysfunction in the distribution of trigemi nal nerve affecting the right side of the face including affecting deglutition secondary to recurrent aspiration. She is currently on radiation therapy. The patient was seen by neurosurgery, they felt that biopsy would be difficult given the continuity of her history, which is most likely recurrence of lymphoma and has been started empirically on radiation. The patient has weakness in the right man ulder and right upper arm and forearm, unable to raise the arm for which she had an x-ray and an MRI of the shoulder done, which shows no obvious evidence of any disease, but does show a full-thickness tear of the rotator cuff with tear of the deltoid tendon along with the muscle, which could be accoun ting for some of the reasons as to why her right shoulder and right arm have been weak with the inabi lity to raise the arm above her shoulder. MR of the cervical and dorsal spine does not show any enha ncement of the cord nor does it show any abnormal marrow activity in the spine itself. The patient h as been tachycardic for which she has been put on the beta blockers and the doses of Inderal have inc reased which has helped the patient's tachycardia come down. The patient is being monitored actively by the triple drum operator as well. We may have to reinstitute chemotherapy once the radiation is complete . The patient's cardiac status has been hemodynamically stable with the Inderal increased from 80 to 120. The patient denies any chest pain, shortness of breath or palpitation. No headaches. N umbness persists on the right side of the face. PHYSICAL EXAMINATION: VITAL SIGNS: Stable. T-max is 98.4, heart rate is 77, blood pressure is 142/80. HEENT: Conjunctivae pale. Sclerae are anicteric. Pupils are equally reactive to light and accommod ation. NECK: Supple. There is no adenopathy. LUNGS: Clear to percussion and auscultation. HEART: Reveals S1 and S2 to be normal. ABDOMEN: Soft, nontender. EXTREMITIES: Lower extremities reveal no cyanosis, clubbing or edema. The patient continues to have weakness in the right arm and forearm, unable to raise the arm above the shoulder secondary to the f indings of the MRI. The patient continues to have numbness in the distribution of the trigeminal ner ve. In the face, the malar aspect extending to the jaw, she has problems with first active deglutiti on as well and ENT and Dietary are on consult. ASSESSMENT NOTES AND PLAN: The patient has stage IV small cell lymphocytic lymphoma affecting the po ns and the trigeminal nerve extending into the Meckel's cave for which she is on radiation and IV Dec adron. Tachycardia has resolved with Inderal. Electrolyte imbalance, which is being corrected. EKG and echocardiogram show left ventricular hypertrophy and trisomy, mild mitral regurgitation and mode rate tricuspid regurgitation. The patient's IV fluids have been discontinued. We will continue to m onitor the patient on the floor since the telemetry has been discontinued and we will plan after disc ussing with Radiation/Oncology as to how many more treatments with radiation , and prior to that , we will make a decision about starting her on Rituxan and bendamustine. Routine post exam instruct ions have been given to the patient. Britni Bynum MD cc: [id number] TT: 02/01/2017 01:42:07 Confirmation # [id number] Dictation # [id number] tn
[2017-02-01] MEDS: Dexamethasone 4 mg/1 ml IVP SCH ×3 (05:43→18:00)
--- NOTE | 2017-02-01 07:59 | RAD ---
HISTORY: sob, wheezing COMPARISON: 01/25/2017 portable semi-erect 4:33 p.m. FINDINGS: LUNGS: No active pulmonary disease. Lung volumes increased PLEURA: No significant pleural effusion identified, no pneumothorax apparent. CARDIOVASCULAR: Left ventricle configuration top-normal. The descending thoracic aorta is similar in configuration is slightly bulbous in prominent. A upper GI study from 11/23/2016 states no hiatal hernia. OSSEOUS STRUCTURES: Thoracic spondylosis. Glenohumeral and acromioclavicular osteoarthrosis possible concomitant calcific rotator cuff tendinopathy- -assessment limited -given field of view VISUALIZED UPPER ABDOMEN: Normal. OTHER FINDINGS: None. IMPRESSION: No active disease.
--- NOTE | 2017-02-01 09:14 | PN ---
DATE: 02/01/2017 A 66-year-old black female with history of seizure disorder, stage IV lymphoma, hypertension. The pa tient admitted to the hospital with weakness of the right upper extremity and also some difficulty wi th swallowing. The patient is found to have a [facility] metastatic disease from her lymphoma. She also is found recently to have a torn rotator cuff of the right shoulder. The patient also was admitted with neutropenia with a white count of 2.1 with 0.9% granulocytes and 4 6% lymphocytes. The patient's white count is now up to 5.[address] Bynum. The [facility] ent is scheduled for radiation therapy and physical therapy for her paresis of the right upper extrem ity. PHYSICAL EXAMINATION: VITAL SIGNS: Today are stable. Her blood pressure is 164/91. The heart rate is 78. Respiratory ra te is 20, and O2 sat is 95%. Physical examination is unchanged. There is still paresis and pain of the right shoulder. We will consult possible orthopedics for eval uation of right shoulder rotator cuff tear. However, at this point, the patient is not a candidate f or surgery due to her hematological and her neurological condition. Alex Butt MD cc: [id number] TT: 02/01/2017 09:13:43 Confirmation # [id number] Dictation # [id number] jn
[2017-02-01] MEDS: Propranolol 60 mg ER Cap PO SCH (10:07)
[2017-02-01] MEDS: Potassium Chloride 20 mEq ER Tab PO SCH (10:08)
[2017-02-01] MEDS ORDERED: Potassium Chloride 20 mEq ER Tab PO ONE ×2 (13:39→17:03)
--- NOTE | 2017-02-01 14:04 | PN ---
DATE: 02/01/2017 The patient in room 376, bed 1. REASON FOR CONSULTATION AND FOLLOWUP: Tachycardia, small cell lymphoma with metastasis to the brain. HISTORY OF PRESENT ILLNESS: A 66-year-old female with past medical history significant for stage IV lymphocytic lymphoma, status post chemotherapy in 2015. Last chemo was about 8 months ago and now patient found to have mass in the brain, possibly metastatic disease to the brain. The patient was found to be also tachycardic for which propranolol was started and patient stayed stable. The patient lying flat in bed without any shortness of breath or palpitation or chest pain. The patient, however, complained of some right shoulder pain. PHYSICAL EXAMINATION: VITAL SIGNS: Blood pressure 164/91, respirations 20, pulse 78, temperature 97.6. HEAD: Normocephalic. EYES: Pupils normal. Conjunctivae normal. NECK: JVP low. Carotid equal. THORAX: AP diameter normal. LUNGS: Clear. CARDIOVASCULAR: S1, S2. ABDOMEN: Soft, no tenderness, no organomegaly. EXTREMITIES: No clubbing, no cyanosis. LABORATORY DATA: WBC 5.8, hemoglobin 11.8, hematocrit 35.2, platelet 138. Sodium 137, potassium 3.2, BUN 21, creatinine 0.9. AST, ALT normal. DIAGNOSES: Lipoma with metastasis to the brain, status post chemotherapy, status post metastatic disease to the brain, sinus tachycardia controlled with propranolol, electrolyte imbalance, hypokalemia. Echo 12/29/2015 showed normal left ventricular function, borderline left ventricular hypertrophy, mild-to- moderate tricuspid regurgitation, right ventricular systolic pressure 38 mmHg. The patient had JUSTIN on 12/29/2015 which showed ejection fraction 65%. PLAN: The patient getting hydralazine 10 mg q.i.d. p.r.n., dexamethasone 4 mg IV q.6 hours, heparin 5000 units subQ q.8 hours, propranolol, Inderal-LA 120 mg p.o. daily, potassium 20 mEq p.o. daily, Lamictal 200 mg p.o. b.i.d., Pepcid 20 mg daily. We will give some extra potassium therapy and we will repeat electrolytes in the morning. The patient's blood pressure continues to be elevated so we will start Lisinopril to try to control the blood pressure and we will follow with you. Waylon Chawla MD cc: [id number] TT: 02/01/2017 14:04:29 Confirmation # [id number] Dictation # [id number] sn MTDD
[2017-02-01] MEDS ORDERED: Albuterol-Ipratrop 3 mg / 0.5 (3 ml) UD IH STA (16:06)
[2017-02-01] MEDS ORDERED: MethylPREDNISolone Depo 40 mg/ml Inj IM ONE (19:56)
[2017-02-01] MEDS ORDERED: Bupivacaine 0.5% Inj(30mL) IJ ONE (19:56)
[2017-02-01] MEDS ORDERED: Albuterol-Ipratrop 3 mg / 0.5 (3 ml) UD IH SCH (20:00)
--- NOTE | 2017-02-01 20:17 | PN ---
DATE: 02/01/2017 This is patient's hospital visit on the medical floor. For Dr. Bynum. SUBJECTIVE: The patient is a 66-year-old female seen sitting up in bed, reporting she has a signific ant headache and shoulder pain with Tylenol her only medication. We will adjust medications to this e nd. She is known to have stage IV small cell lymphocytic lymphoma with a mass on the surface of the brain at the level of the alma, recently seen by neurosurgery with no surgery recommended with radiat ion continuing, 4 of 10 treatments so far, with consideration for treatment with Rituxan and bendamus jamie as per Dr. Bynum's protocol in the near future. We will also ask Dr. Faraz Cortez to e valuate her for her shoulder pain and treat with Fioricet for her headache as a trial. She reports T ylenol with codeine helped in the past. We will consider this should the Fioricet not be effective. Otherwise, she is resting comfortably. Numbness persists to the right side of her face. OBJECTIVE: PHYSICAL EXAMINATION: VITAL SIGNS: Temperature 97.6, pulse 80, respirations 20, blood pressure 174/91, pulse ox . HEENT: Unremarkable. NECK: Supple. HEART: Regular rate. LUNGS: Clear. ABDOMEN: Soft, nontender. EXTREMITIES: Decreased strength to the right shoulder, arm with minimal tenderness to gentle palpati on with numbness there and also to the face on the right side. SKIN: Otherwise, warm, dry and clear. NEUROLOGIC: Awake, alert and oriented, weakness of her right side arm and face. LABORATORY DATA: The patient's labs were done 2 days prior and will be checked again in the morning. The patient had a chest x-ray done yesterday. It was read as no active disease. She had an MRI of her shoulder done 2 days prior, which showed complete tear and retraction of the ro tator cuff, large joint effusion. ASSESSMENT: Stage IV small cell lymphocytic lymphoma with the mass affecting the brain, affecting th e trigeminal nerve, not a surgical candidate, participating with radiation, severe headache secondary to above, complete tear, retraction of the rotator cuff, joint effusion on the right, hemiparesis, h ypertension, seizure disorder. PLAN: The patient is to continue present medical regimen. We will ask for Dr. Faraz Cortez, orthopedic surgeon, to evaluate for her shoulder with consideration for treatment in the future with Rituxan and bendamustine as per Dr. Bynum's recommendations after radiation is completed. We will check labs and monitor clinically. Raheel Sheikh MD cc: [id number] TT: 02/01/2017 20:17:13 Confirmation # [id number] Dictation # [id number] rn
[2017-02-01] MEDS: Menthol/Methyl Salicylate Ointment(1 oz) TOP PRN (21:59)
[2017-02-01] MEDS: Apap-Butalbital-Caffeine 325-50-40mg Tab PO PRN (22:00)
[2017-02-02] MEDS: Dexamethasone 4 mg/1 ml IVP SCH ×4 (00:05→17:19)
[2017-02-02] MEDS: Apap-Butalbital-Caffeine 325-50-40mg Tab PO PRN (05:58)
--- NOTE | 2017-02-02 07:06 | CON ---
DATE: 02/01/2017 REASON FOR CONSULTATION: Has exquisite right shoulder pain for approximately 2 weeks. MRI was recen tly done of the right shoulder showing a complete rotator cuff tear confirmed by a shoulder x-ray whi ch shows high riding shoulder with osteoarthritis of the glenohumeral joint and the AC joint with dec reased space between the acromion and the shoulder indicating a rotator cuff tear, and there is some fluid in the joint. The patient has, besides pain, decreased range of motion and weakness. She does not want to have any surgical intervention, of course, and she does not want to have an injection to night, but I will order some Depo-Medrol and Marcaine. If the pain persists, we could help her tempo rarily with an arthrocentesis by aspirating the fluid in the joint and giving her Depo-Medrol and Mar charmaine. Otherwise, I will limit her therapy to just pendulum exercises and no resistance exercises, k nowing that it is irreparable rotator cuff tear at this time. FINAL DIAGNOSIS: Chronic rotator cuff tear with associated rotator cuff arthropathy of the right man peralta, dominant side. Faraz Cortez DO cc: [id number] TT: 02/02/2017 07:05:49 Confirmation # [id number] Dictation # [id number] fabiola
[2017-02-02 07:23] LABS: BLOOD UREA NITROGEN 27 mg/dL (7-21); CALCIUM 9.2 mg/dL (8.4-10.5); CARBON DIOXIDE 32 mmol/L (21-33); CHLORIDE 100 mmol/L (95-110); GFR AFRICAN-AMERICAN > 60; GLUCOSE,RANDOM 94 mg/dL (70-110); MAGNESIUM 2.3 mg/dL (1.7-2.2); PHOSPHOROUS 1.8 mg/dL (2.5-4.5); POTASSIUM 4.6 mmol/L (3.6-5.0); SODIUM 139 mmol/L (132-148)
--- NOTE | 2017-02-02 09:08 | PN ---
DATE: 02/02/2017 SUBJECTIVE: Tiffany is a 66-year-old black female with a history of seizure with a history of stage IV lymphoma, history of hypertension. The patient admitted to the hospital with right upper extremity weakness, a new CAN FEEDER lesion consistent with metastatic lymphoma. The patient was receiving RT and De cadron. She has remained mildly hypertensive at 151/91. She is afebrile. Vital signs are stable. She is also found on MRI to have torn rotator cuff of the right shoulder. She has profound weakness of the right upper extremity. She has no facial droop. She does have difficulty swallowing but she does not have any severe dysphagia, and she has no speech impediment. OBJECTIVE: Physical examination is unchanged. The patient has been weak and still with extreme weak ness and paresis of the right upper extremity. Gait is normal. PLAN: Continuing radiation therapy and postchemotherapy post, and to start to wean her steroids slow ly and control of her blood pressure and continue anti-seizure medication. Alex Butt MD cc: [id number] TT: 02/02/2017 09:08:23 Confirmation # [id number] Dictation # [id number] omayra
[2017-02-02] MEDS: Propranolol 60 mg ER Cap PO SCH (10:07)
[2017-02-02] MEDS: Potassium Chloride 20 mEq ER Tab PO SCH (10:08)
[2017-02-02 10:20] LABS: HEMATOCRIT 38.5 % (36.0-48.0); MEAN CELL VOLUME 92.1 fL (80.0-105.0); MEAN CORPUSCULAR HEMOGLOBIN 29.9 pg (25.0-35.0); MEAN CORPUSCULAR HGB CONC 32.5 g/dl (31.0-37.0); MEAN PLATELET VOLUME 10.2 fl (7.0-11.0); PLATELET COUNT 117 10^3/uL (120.0-450.0); RED CELL DISTRIBUTION WIDTH 13.3 % (11.5-14.5); WHITE BLOOD COUNT 13.5 10^3/ul (4.5-11.0)
[2017-02-02 10:29] LABS: ADD MANUAL DIFF? YES
[2017-02-02 11:23] LABS: ATYPICAL LYMPHOCYTE 4 % (0.0-0.0); BAND 2 % (0-2); EOSINOPHIL 1 % (0.0-3.0); NEUTROPHIL 70 % (50.0-70.0)
[2017-02-02 11:24] LABS: ANISOCYTOSIS 1+; HYPOCHROMIA SLIGHT; NUCLEATED RED BLOOD CELL 2 %; OVALOCYTES SLIGHT; PLATELET ESTIMATE SL. DEC (NORMAL); POLYCHROMASIA SLIGHT; TEAR DROP CELLS SLIGHT; TOXIC GRANULATION 1+
[2017-02-02] MEDS ORDERED: Potassium Phosphate 3 mmol/ml Inj IV STA (12:06)
[2017-02-02] MEDS ORDERED: Potassium Phosphate 15 MMOLE in Sodium Chloride 0.9% 250 ML IV ONE (12:30)
--- NOTE | 2017-02-02 12:33 | PN ---
DATE: 02/02/2017 The patient is in room 376, bed 1. 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 HISTORY OF PRESENT ILLNESS: A 66-year-old female with past medical history significant for stage IV lymphocytic lymphoma, status post chemotherapy in 2016. Last chemo was about 8 months ago and now mike nath found to have a mass in the brain, possibly metastatic disease to the brain. The patient was found to be also tachycardic for which propranolol was started and the patient's heart rate became st able. The patient now complaining of cough and sore throat and she says she has some expectoration a lso. Denies any chest pain and denies any shortness of breath. She complains of right shoulder pain . The patient lying flat in bed without any cardiac symptoms. PHYSICAL EXAMINATION: VITAL SIGNS: Blood pressure 151/91, respirations 18, pulse 70, temperature 98.4. HEAD: Normocephalic. EYES: Pupils normal. Conjunctivae normal. NOSE AND THROAT: Normal. NECK: JVP low. Carotid equal. THORAX: AP diameter normal. LUNGS: No significant rales, very few wheezing heard. CARDIOVASCULAR: S1, S2. ABDOMEN: Soft, nontender, no organomegaly. EXTREMITIES: No clubbing, no cyanosis. LABORATORY DATA: WBC 13.5, hemoglobin 12.5, hematocrit 38.5, platelet 117. Sodium 139, potassium 4. 6, BUN 27, creatinine 0.8, calcium ____, magnesium 2.3, total protein 6.0, albumin 3.8. DIAGNOSES: Lymphoma with metastasis to the brain, status post chemotherapy, status post metastatic d isease to the brain, status post sinus tachycardia, controlled with propranolol, electrolyte imbalanc e, hypokalemia, hypomagnesemia which has been corrected. Now, the patient has hypophosphatemia. Ech o on 12/29/2015 showed normal left ventricular systolic function, borderline left ventricular hypertrop hy, mild to moderate tricuspid regurgitation, right ventricular systolic pressure 38 mmHg. The patie nt had transesophageal echocardiogram on 12/29/2015 which showed ejection fraction of 65%. PLAN: The patient having cough and sore throat. We will put her on Rocephin 1 gram IV daily and miryam thromycin 500 mg IV daily. The patient's blood pressure is elevated, I added lisinopril 20 yesterday , but it was not given yesterday. Since blood pressure now is lower than yesterday, I will start her on lisinopril 10 mg daily to bring the pressure down. The patient will continue rest of the medicat ions as ordered which is the patient getting dexamethasone 4 mg IV q. 8 hours, DuoNeb hand nebulizer therapy, heparin 5000 units subq q. 8 hours, Inderal-LA 120 mg p.o. daily, potassium chloride 20 mEq p.o. daily, Lipitor 10 mg p.o. daily. We will give dose of K-Phos and repeat labs in the morning. W maria will follow with you. Waylon Chawla MD cc: [id number] TT: 02/02/2017 12:32:18 Confirmation # [id number] Dictation # [id number] tn
[2017-02-02] MEDS: cefTRIAXone 1 gm 100 ML IVPB SCH (15:25)
--- NOTE | 2017-02-02 21:25 | PN ---
DATE: 02/02/2017 This is the patient's hospital visit on the medical floor. For Dr. Bynum. SUBJECTIVE: The patient is a 66-year-old female seen sitting up in bed with oxygen on, reporting sania t her headache is now improved, with her shoulder pain still causing some discomfort. She is known t o have stage IV small cell lymphocytic lymphoma with a mass on the surface of the brain, level of the alma, with radiation continuing, with consideration for treatment in the near future as per Dr. Sebastián chua's recommendation. A consult with Dr. Faraz Cortez was appreciated for her rotator cuff te ar with arthropathy, with no surgical intervention recommended, with no injection given, with the pat ient to consider arthrocentesis with injection of Depo-Medrol and Marcaine in the future. OBJECTIVE: PHYSICAL EXAMINATION: VITAL SIGNS: Temperature 98.5, pulse 72, respirations 20, blood pressure 158/95, pulse ox 99%. HENT: Unremarkable. The patient with a wig on. NECK: Supple. HEART: Regular rate, occasional ectopic beat. LUNGS: Clear. ABDOMEN: Soft, nontender. EXTREMITIES: Decreased strength with tenderness to minimal range of motion to the right upper extrem ity, with complaint of numbness to the right side of his face. SKIN: Otherwise, warm, dry, and clear. NEUROLOGIC: Awake, alert with the patient speaking in harsh tones, with weakness to the right arm, s houlder, and her right side of her face, she reports. The patient's labs were done. White blood cell count of 13.5, hemoglobin 12.5, hematocrit 38.5, plat elet count of 117,000, with a chem metabolic panel showing a normal chem metabolic panel with a magne sium 2.3, phosphorus 1.8, BUN of 27, with a normal creatinine of 0.8. The patient had a chest x-ray done 2 days ago read as no active disease, with thoracic spondylosis, g lenohumeral and acromioclavicular osteoarthrosis, possible concomitant calcific rotator cuff tendinop athy. ASSESSMENT: Stage IV small cell lymphocytic lymphoma with mass effect in the brain, affected trigemi nal nerve, not a surgical candidate. Participated with radiation. Headache now improved. Complete t ear with retraction of the rotator cuff on the right shoulder, joint effusion on the right, hemipares is, hypertension, seizure disorder. PLAN: The patient is to continue medical regimen. Consult with Dr. Diego bustos. Five of 10 treatments are now completed, with considerations for Rituxan and bendamustine, recommendations for post-radiation protocols as per Dr. Bynum possible. Will monitor clinically and with labs. T he patient is continuing Decadron 4 mg IV q. 8 hours, with this contributing to her elevated white bl ood cell count. Raheel Sheikh MD cc: [id number] TT: 02/02/2017 21:24:58 Confirmation # [id number] Dictation # [id number] jn
[2017-02-02] MEDS: Nystatin 100,000 Units/ml Oral Susp 5 ml UD PO SCH (21:54)
[2017-02-02] MEDS: Azithromycin 500MG/NS 250ml 250 ML IVPB SCH (21:56)
[2017-02-03] MEDS: Dexamethasone 4 mg/1 ml IVP SCH ×3 (01:06→17:09)
--- NOTE | 2017-02-03 07:32 | CON ---
DATE: 02/02/2017 REFERRING PHYSICIAN: Dr. Butt. REASON FOR CONSULT: Chronic obstructive lung disease, has a cough and shortness of breath. HISTORY OF PRESENT ILLNESS: This is a 66-year-old female with a history of metastatic lymphoma, seiz ure disorder, hypertension, chronic obstructive lung disease, complaining of cough and shortness of b reath. Also has right upper extremity rotator cuff tear, on pain medication, seen by orthopedics. N o hemoptysis, no hematemesis, no hematuria reported. PAST MEDICAL HISTORY: Chronic obstructive lung disease, lymphoma with metastatic disease, seizure di sorder, hypertension, right rotator cuff tear. FAMILY HISTORY: No significant cardiopulmonary disease reported. SOCIAL HISTORY: Denies any active smoking or alcohol abuse. ALLERGIES: None known. MEDICATIONS: She is on hydralazine 10 mg q.i.d. p.r.n., also getting BenGay to affected area twice a day, Decadron 4 mg IV q. 8 hours which is started today, DuoNeb q. 6 hours p.r.n., Fioricet 1 tab q. 4 hours p.r.n., folic acid 1 mg daily, heparin 5000 units subQ q. 8 hours, Inderal-LA 120 mg daily, potassium 20 mEq daily, Lamictal 200 mg twice a day, Lipitor 10 mg daily, Pepcid 20 mg daily, Rocephi n 1 g once daily, Tylenol p.r.n. basis, Zestril 10 mg daily, Zithromax 500 mg IV daily. REVIEW OF SYSTEMS: No headache, no rhinitis. Has cough and shortness of breath, right upper extremi ty tenderness. No chest pain. No nausea, no vomiting, no diarrhea, no dysuria. No leg pain or leg swelling. PHYSICAL EXAMINATION: GENERAL: Sitting side of the bed, having dinner. Complaining about shortness of breath. VITAL SIGNS: Temp is 98, heart rate 72, respiratory rate is 22, blood pressure 158/95. Pulse ox 95% on nasal cannula. HEENT: Moist mucous membranes. Small oral cavity. Crowded airway. LUNGS: Have a poor airflow with diffuse wheezing. HEART: S1, S2. ABDOMEN: Soft, nontender. No organomegaly. EXTREMITIES: There is no edema. Has a right upper extremity tender to touch and limited movements. NEUROLOGIC: Awake, alert, follows simple commands. LABORATORY DATA: Shows hemoglobin 12.5, hematocrit 38.5, WBC 13.5, platelet is 117. Sodium 139, pot assium 4.6, chloride 100, bicarbonate 32, BUN 27, creatinine 0.8, glucose 94, calcium is 9.2, phospho lucien 1.8, magnesium 2.3. Laboratory data shows blood cultures, urine culture and nose culture have be en unremarkable. Chest x-ray done on 01/31/2017 shows no active pulmonary disease. IMPRESSION AND PLAN: Lymphocytic lymphoma with brain involvement, been on radiation therapy; chronic obstructive lung disease, right upper extremity rotator cuff tear, electrolyte imbalance, mild pulmo nary hypertension. I agree with the present management. The patient is already on steroids for her lymphoma, but with propranolol use I think we are causing her much for bronchospasm. I will suggest to minimize propranolol dose instead of giving long acting. May give short acting few times a day an d hold for bronchospasm. Continue inhaled bronchodilator. Gastric prophylaxis, deep vein thrombosis prophylaxis, pain management. Thank you, and will follow with you. Waylon Carmen MD cc: [id number] TT: 02/03/2017 07:31:21 Confirmation # [id number] Dictation # [id number] fabiola
[2017-02-03 07:37] LABS: BLOOD UREA NITROGEN 21 mg/dL (7-21); CARBON DIOXIDE 34 mmol/L (21-33); CHLORIDE 101 mmol/L (95-110); GFR AFRICAN-AMERICAN > 60; GLUCOSE,RANDOM 107 mg/dL (70-110); MAGNESIUM 2.1 mg/dL (1.7-2.2); PHOSPHOROUS 3.3 mg/dL (2.5-4.5); POTASSIUM 4.5 mmol/L (3.6-5.0); SODIUM 141 mmol/L (132-148)
[2017-02-03] MEDS: Potassium Chloride 20 mEq ER Tab PO SCH (09:37)
[2017-02-03] MEDS: cefTRIAXone 1 gm 100 ML IVPB SCH (09:39)
[2017-02-03] MEDS: Nystatin 100,000 Units/ml Oral Susp 5 ml UD PO SCH ×4 (09:39→21:36)
[2017-02-03] MEDS: Azithromycin 500MG/NS 250ml 250 ML IVPB SCH (09:40)
--- NOTE | 2017-02-03 09:56 | PN ---
DATE: 02/03/2017 A 66-year-old black female with seizure disorder, hypertension, lymphoma stage IV with RAG WASHER lymphoma, undergoing radiation therapy, steroids. The patient has been on steroids for several days now. LABORATORY DATA: Her white count is 13,500. However, she is on steroids, platelet count is 117,000. The patient is afebrile. Vital signs are stable. She has known history of hypertension which has be en resistant to treatment. She is apparently at 158/95. She also has been having some bronchospasm and some wheezing, some shortness of breath. She was recently placed on Rocephin and Zithromax proph ylactically. She also has been on Inderal for control of blood pressure which will be discontinued d ue to bronchospasm. Possibility, the patient is also on lisinopril 10 mg, will be increased to 20 an d she will also be added amlodipine 10 mg to control her blood pressure. The patient was admitted wi th new onset of right upper extremity weakness. She does have a rotator cuff on the right shoulder, but she has severe neurological weakness of the right upper extremity and she has a RAG WASHER ____, undergo ing radiation therapy. Otherwise, the patient is without complaint. Full review of systems is otherwise unremarkable except for some coughing and some headache and some lightheadedness and dizziness. The patient also has a history of some swallowing problems which have been examined in the past. She is tolerating her diet well without any aspiration at this point. Physical examination is unchanged and plan is to continu e to control blood pressure. Continue radiation therapy, taper steroids slowly. Alex Butt MD cc: [id number] TT: 02/03/2017 09:55:15 Confirmation # [id number] Dictation # [id number] tn
[2017-02-03] MEDS: Apap-Butalbital-Caffeine 325-50-40mg Tab PO PRN (17:13)
--- NOTE | 2017-02-03 18:29 | PN ---
DATE: 02/03/2017 This is the patient's hospital visit on the medical floor. For Dr. Bynum. SUBJECTIVE: The patient is a 66-year-old female seen sitting up in bed more alert today, with the mike naht requesting a return visit with Dr. Cortez for an injection of her right shoulder due to t he significant discomfort there. With this, she is known to suffer from stage IV small cell lymphocy tic lymphoma with mass on the surface of the brain level of the alma, with radiation continue. With this, the patient is otherwise in no acute distress, reporting that her appetite is good. Except for her discomfort in the shoulder, she feels well. The headaches are gone. OBJECTIVE: PHYSICAL EXAMINATION: VITAL SIGNS: Temperature 98.8, pulse 66, respirations 21, blood pressure 166/92, pulse ox 100%. HENT: Unremarkable. NECK: Supple. HEART: Regular rate. LUNGS: Clear. ABDOMEN: Soft, nontender. EXTREMITIES: Decreased strength. Decreased range of motion of the right upper extremity. SKIN: Warm, dry, and clear. NEUROLOGIC: Awake, alert, with significant weakness of the right arm. Cannot lift it the above her shoulder. She did have a chem panel done today which showed a carbon dioxide of 34. Otherwise normal chem pane l. ASSESSMENT: That of stage IV small cell lymphocytic lymphoma with mass effect on the brain affecting the trigeminal nerve. Not a surgical candidate. Continue with radiation. Headache improved. A c omplete tear with retraction of rotator cuff, right shoulder; joint effusion, history of hemiparesis, hypertension, seizure disorder. PLAN: Will be to continue present medical regimen with radiation, with treatment eventually as per Padmini Bynum's recommendations, and protocol with Rituxan and bendamustine in the future after radiatio n is complete. We will ask for reconsult with Dr. Cortez regarding her shoulder injection, wit h prognosis guarded. She also had leukocytosis secondary to steroids being given. Raheel Sheikh MD cc: [id number] TT: 02/03/2017 18:28:40 Confirmation # [id number] Dictation # [id number] jn
--- NOTE | 2017-02-03 19:56 | PN ---
DATE: 02/03/2017 REASON FOR CONSULTATION AND FOLLOWUP: Tachycardia, small cell lymphoma with metastasis to the brain. BRIEF CLINICAL HISTORY: This is a 66-year-old female with a past medical history significant for sta ge IV lymphoid lymphocytic lymphoma, status post chemotherapy in 2016, last chemo 8 months ago. The patient found to have a mass in the brain, probably metastatic lesion to the brain, complaining of up per arm pain. The patient was also found to be tachycardic, therefore, the patient was started propr anolol and the heart rate is well controlled. The patient is not complaining of cough, denies any ch est pain, shortness of breath, any palpitation. Complaining of right arm pain. PHYSICAL EXAMINATION: VITAL SIGNS: Temperature afebrile, heart rate 60, blood pressure 166/92. HEENT: PERRLA. Extraocular muscles intact. NECK: Supple. No carotid bruits. No thyromegaly. CHEST: Clear to auscultation. HEART: S1, S2 regular. ABDOMEN: Soft. EXTREMITIES: Clubbing and cyanosis negative. LABORATORY DATA: Blood workup as follows: WBC 13, hemoglobin 12.5, hematocrit 38.5, platelet count 117. Chemistry shows sodium 141, potassium 4.5, chloride 101, carbon dioxide 34, anion gap of 11, BU N 21, creatinine 0.9. Calcium 9.0, phosphorus 3.3, magnesium 2.1. IMPRESSION: Sinus tachycardia resolved with propranolol, hypertension, metastatic lymphocytic leukem ia to the brain. The patient is on methylprednisolone as well as Decadron IV. Hypertensive response . RECOMMENDATION: We will put hydralazine p.r.n. for hypertension. The patient is on 10 mg of amlodip ine. Lisinopril started at 20 mg. We will follow with you. Thank you, Dr. Butt, for providing us the opportunity in taking care of the patient. We will fo llow with you. Waylon Perez MD cc: [id number] TT: 02/03/2017 19:56:00 Confirmation # [id number] Dictation # [id number] ln
--- NOTE | 2017-02-03 20:06 | PN ---
DATE: 02/03/2017 REFERRING PHYSICIAN: Dr. Butt. SUBJECTIVE: She is lying in the bed, head at 45 degrees, having lunch. Overall feels better. Breat janie is better. Tachycardia is better. No nausea, no vomiting, no diarrhea. No leg pain or leg swe lling. Has significant right upper extremity pain. OBJECTIVE: GENERAL: In mild distress secondary to right arm pain. VITAL SIGNS: Temperature is 98, heart rate 66, respiratory rate is 20, blood pressure 166/92, pulse ox 100% on nasal cannula. HEENT: Moist mucous membranes. Small oral cavity. NECK: Supple. No JVD. LUNGS: Has decreased wheezing, better airflow. HEART: S1, S2. ABDOMEN: Soft, nontender. No organomegaly. EXTREMITIES: There is no edema. NEUROLOGIC: Awake, alert, follows simple commands. MEDICATIONS: She is on hydralazine 10 mg q.i.d. p.r.n., Decadron 2 mg IV q.8 hours, DuoNeb q.6 hours , Fioricet 1 tab q.4 hours p.r.n., folic acid 1 mg daily, heparin 5000 units subQ q.8 hours, potassiu m 20 mEq daily, Lamictal 200 mg twice a day, Lipitor 10 mg daily, Norvasc 10 mg daily, nystatin oral suspension q.i.d., Pepcid 20 mg daily, Rocephin 1 gram IV daily, Singulair 10 mg daily, Tylenol p.r.n . basis, Zestril 20 daily, Zithromax 500 mg daily. LABORATORY DATA: Reviewed, shows sodium 141, potassium 4.5, chloride 101, bicarbonate 34, BUN 21, cr eatinine is 0.9, glucose 107, phosphorus 3.3, total bili 2.1. IMPRESSION AND PLAN: Lymphocytic lymphoma with brain involvement, has been on radiation and chemothe rapy, chronic obstructive lung disease, right upper extremity rotator cuff tear, mild pulmonary hyper tension. Pulmonary point of view, she is doing much better. Airflow into the lungs is much improved . Noted has been discontinued. That probably was the cause of bronchospasm. Continue inhaled beta agonist, pain management, gastric prophylaxis and deep venous thrombosis prophylaxis. Encourag e p.o. intake. Thank you and will follow with you. Waylon Carmen MD cc: [id number] TT: 02/03/2017 20:05:35 Confirmation # [id number] Dictation # [id number] dn
[2017-02-04] MEDS: Dexamethasone 4 mg/1 ml IVP SCH ×4 (01:30→23:53)
[2017-02-04] MEDS: Albuterol-Ipratrop 3 mg / 0.5 (3 ml) UD IH PRN (04:32)
[2017-02-04 06:36] LABS: ADD MANUAL DIFF? NO
[2017-02-04 06:40] LABS: BASO # 0.01 K/mm3 (0.0-2.0); BASO % 0.2 % (0.0-3.0); EOS % 0.3 % (1.5-5.0); GRAN # 4.98 (1.4-6.5); GRAN % 81.6 % (50.0-68.0); HEMATOCRIT 34.6 % (36.0-48.0); LYMPH # 0.6 (1.2-3.4); MEAN CELL VOLUME 92.8 fL (80.0-105.0); MEAN CORPUSCULAR HEMOGLOBIN 29.8 pg (25.0-35.0); MEAN CORPUSCULAR HGB CONC 32.1 g/dl (31.0-37.0); MEAN PLATELET VOLUME 10.2 fl (7.0-11.0); MONO # 0.5 (0.1-0.6); MONO % 8.9 % (1.0-6.0); PLATELET COUNT 115 10^3/uL (120.0-450.0); RED CELL DISTRIBUTION WIDTH 13.5 % (11.5-14.5); WHITE BLOOD COUNT 6.1 10^3/ul (4.5-11.0)
[2017-02-04 06:53] LABS: ALB/GLOB RATIO 1.4 (1.1-1.8); ALKALINE PHOSPHATASE 74 U/L (38-133); ALT/SGPT 48 U/L (7-56); AST/SGOT 43 U/L (15-39); BILIRUBIN,TOTAL 0.6 mg/dL (0.2-1.3); BLOOD UREA NITROGEN 23 mg/dL (7-21); CARBON DIOXIDE 35 mmol/L (21-33); CHLORIDE 97 mmol/L (95-110); GFR AFRICAN-AMERICAN > 60; GLUCOSE,RANDOM 126 mg/dL (70-110); POTASSIUM 4.3 mmol/L (3.6-5.0); SODIUM 137 mmol/L (132-148); TOTAL PROTEIN 6.3 g/dL (5.8-8.3)
[2017-02-04] MEDS ORDERED: MethylPREDNISolone Depo 40 mg/ml Inj IM ONE (08:24)
[2017-02-04] MEDS ORDERED: Bupivacaine 0.5% Inj(30mL) IJ ONE (08:24)
[2017-02-04] MEDS: Potassium Chloride 20 mEq ER Tab PO SCH (09:22)
[2017-02-04] MEDS: Nystatin 100,000 Units/ml Oral Susp 5 ml UD PO SCH ×4 (09:23→21:30)
[2017-02-04] MEDS: cefTRIAXone 1 gm 100 ML IVPB SCH (09:23)
[2017-02-04] MEDS: Azithromycin 500MG/NS 250ml 250 ML IVPB SCH (09:24)
--- NOTE | 2017-02-04 10:07 | PROCN ---
DATE: 02/04/2017 I was requested to see the patient by Dr. Raheel Sheikh because of pain in the right shoulder that was not improving with rest and she had fusion. X-rays show chronic rotator cuff arthropathy with h igh riding humerus and irregularity of the undersurface of the acromion with a type 3 acromion and AC joint osteoarthritis. So I took the opportunity to aspirate her right shoulder after thorough prepping and draping of the s houlder and putting 18 gauge needle in with local anesthesia and aspirating 20 mL of thick bloody flu id consistent was hemorrhagic synovitis from the arthritis of her right shoulder. Once we did this, we injected the shoulder with Depo-Medrol and Marcaine for temporary relief. Hopefully, this will de crease her hemarthrosis as well, so this will probably reduce the need for pain medication also. FINAL DIAGNOSIS: Hemorrhagic synovitis, right shoulder from underlying chronic rotator cuff tear and rotator cuff arthropathy of her right arm and shoulder. Faraz Cortez DO cc: [id number] TT: 02/04/2017 10:06:59 Confirmation # [id number] Dictation # [id number] omayra
--- NOTE | 2017-02-04 11:32 | PN ---
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 The patient is receiving radiation therapy to the brain. The patient had pr esented with weakness in the right upper extremity, which has improved with steroids and radiation. She does have a torn rotator cuff of the right shoulder, which was injected by Dr. Cortez. The patient has been coughing and wheezing and short of breath, bringing up some purulent sputum. Her t emperature is 99.4. LABORATORY DATA: Reveals a white count of 6.1, down from 13.5. Her steroids have been tapered sligh tly. Her platelet count is 115,000. Her H and H is 11.1 and 34.6. REVIEW OF SYSTEMS: A 12-point review of systems was remarkable only for shortness of breath and coug h. Her appetite is poor, but she is swallowing without any choking or aspiration. SUBJECTIVE: GENERAL: The patient is awake, alert, and oriented x 3. NEUROLOGIC: Grossly intact. There is increased strength in the right upper extremity as opposed to on admission. The patient's speech is fluent. She is oriented to time, person, and place. CHEST: Shows rhonchi and rales bilaterally, particularly on the left base. HEART: Regular sinus rhythm. ABDOMEN: Benign. EXTREMITIES: Without cyanosis, clubbing, or edema. The patient will have a repeat chest x-ray. She is on Rocephin and Zithromax and she is on DuoNeb, a nd she is on a tapering dose of steroids. The patient will go for repeat chest x-ray. 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 Alex Butt MD cc: [id number] TT: 02/04/2017 11:32:08 Confirmation # [id number] Dictation # [id number] ln
--- NOTE | 2017-02-04 12:19 | RAD ---
HISTORY: cough COMPARISON: Chest x-ray performed 01/25/17. TECHNIQUE: Chest PA and lateral FINDINGS: LUNGS: Hyperinflation may be seen in the setting of COPD. No focal consolidation. 15 mm nodular density at the right lung base appears consistent with nipple shadow. Please note that chest x-ray has limited sensitivity for the detection of pulmonary masses. PLEURA: No significant pleural effusion identified. No definite pneumothorax . CARDIOVASCULAR: Heart size appears top normal. OSSEOUS STRUCTURES: Degenerative changes of the spine. High-riding bilateral humeral heads consistent with chronic rotator cuff injuries. VISUALIZED UPPER ABDOMEN: Unremarkable. OTHER FINDINGS: None. IMPRESSION: Findings compatible with COPD. Additional incidental findings as above.
[2017-02-04] MEDS: Apap-Butalbital-Caffeine 325-50-40mg Tab PO PRN (16:07)
--- NOTE | 2017-02-04 19:38 | PN ---
DATE: 02/04/2017 REFERRING PHYSICIAN: Dr. Butt. SUBJECTIVE: She is lying on the stretcher, feels better, still has some mild cough and shortness of breath. Breathing is much better. No nausea, no vomiting, no diarrhea. No leg pain or leg swelling . OBJECTIVE: GENERAL: In no acute distress. VITAL SIGNS: Temperature is 99, heart rate is 83, respiratory rate is 20, blood pressure 162/92, pul se ox 96% on room air. HEENT: Moist mucous membranes. Small oral cavity. Crowded airway. NECK: Supple. No JVD. LUNGS: Has a few crackles at the bases, scattered rhonchi, not much wheezing. HEART: S1, S2. ABDOMEN: Soft, nontender. No organomegaly. EXTREMITIES: There is no edema. NEUROLOGIC: Awake, alert, follows simple commands. MEDICATIONS: She is on hydralazine 10 mg q.i.d. p.r.n., to affected area, Decadron 2 mg q.8 ho urs, DuoNeb q.6 hours p.r.n., Fioricet 1 tab q.4 hours p.r.n., folic acid 1 mg daily, potassium 20 mE q daily, Lamictal 200 mg twice a day, Lipitor 10 mg daily, Norvasc 10 mg daily, nystatin oral suspens ion 5 mL q.i.d., Pepcid 20 mg daily, Rocephin 1 gram daily, Singulair 10 mg daily, Tylenol p.r.n. bas is, Zestril 20 mg daily, Zithromax 500 mg daily. LABORATORY DATA: Shows hemoglobin 11.1, hematocrit 34.6, WBC 6.1, platelet count is 115. Sodium 137 , potassium 4.3, chloride 97, bicarbonate 31, BUN 23, creatinine 0.7, glucose 126, AST 43, ALT 48, al kaline phosphatase is 74, albumin is 3.7. Chest x-ray done today shows hyperinflated lung. There is a 15 mm nodular density in the right lung base that appears consistent with a nipple shadow. IMPRESSION AND PLAN: Lymphocytic lymphoma with brain involvement, has been on radiation and chemothe rapy; chronic obstructive lung disease, right upper extremity rotator cuff tear, pulmonary hypertensi on. Need to rule out sleep apnea syndrome. Chest x-ray today suggestive of a nodule versus nipple s hadow. Clinically, she is much improved. Continue bronchodilator. Already on steroids for her lymp deepali. Gastric prophylaxis. Deep venous thrombosis prophylaxis. Out of bed to chair if possible. W ill get another chest x-ray with a nipple marking. Thank you and will follow with you. Waylon Carmen MD cc: [id number] TT: 02/04/2017 19:38:31 Confirmation # [id number] Dictation # [id number] dn
[2017-02-05] MEDS: Apap-Butalbital-Caffeine 325-50-40mg Tab PO PRN (04:19)
[2017-02-05] MEDS: Dexamethasone 4 mg/1 ml IVP SCH ×2 (08:43→16:06)
[2017-02-05] MEDS: Potassium Chloride 20 mEq ER Tab PO SCH (08:45)
[2017-02-05] MEDS: cefTRIAXone 1 gm 100 ML IVPB SCH (09:02)
[2017-02-05] MEDS: Azithromycin 500MG/NS 250ml 250 ML IVPB SCH (09:50)
--- NOTE | 2017-02-05 11:48 | RAD ---
HISTORY: with nipple marking COMPARISON: Chest x-ray performed 02/04/17 TECHNIQUE: Chest PA and lateral FINDINGS: LUNGS: Hyperinflation may be seen in the setting of COPD. No focal consolidation. Please note that chest x-ray has limited sensitivity for the detection of pulmonary masses. PLEURA: No significant pleural effusion identified. No definite pneumothorax . CARDIOVASCULAR: The cardiomediastinal silhouette appears within normal limits of size. OSSEOUS STRUCTURES: Degenerative changes of the spine. VISUALIZED UPPER ABDOMEN: Unremarkable. OTHER FINDINGS: Bilateral nipple markers. IMPRESSION: Hyperinflation may be seen in the setting of COPD.
--- NOTE | 2017-02-05 11:49 | PN ---
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 The patient was admitted. She has had some intermittent fevers and chills. She is on IV antibiotics. S he is receiving radiation therapy to the brain for control of her lymphoma of the brain metastasis. She also was admitted with weakness of the right upper extremity, which has resolved. She was also f ound to have right shoulder rotator cuff tear, to which she has been seen by Dr. Cortez and had an intra-articular injection of steroids. VITAL SIGNS: Her blood pressure is 163/95. She is afebrile today. Her pulse is down to 82. Vital signs are stable. LABORATORY DATA: Revealed a normal white count of 6.1. H and H of 11.1 and 34.6. Her platelet coun t was slightly low at 115. A repeat chest x-ray is not read yet. The patient continues to have some cough, but slightly improved from previous. She is afebrile. She is not bringing up any sputum. She is tolerating her diet, but she is also complaining of burning i n her mouth, possibly due to mucositis. We will add some clotrimazole because of possible fungal inf ection. PHYSICAL EXAMINATION: GENERAL: Shows a well-developed, but thin black female in no apparent distress. REVIEW OF SYSTEMS: A 12-point review of systems is unremarkable except for the cough and some burnin g in her mouth. Denies any headache. Describes increased strength in her right upper extremity from the time that she was admitted. CHEST: Shows rhonchi and rales bilaterally. HEART: Regular sinus rhythm. ABDOMEN: Thin, but benign. EXTREMITIES: Without cyanosis, clubbing, edema. NEUROLOGIC: Grossly improved with increased strength in the right upper extremity over admission. Alex Butt MD cc: [id number] TT: 02/05/2017 11:49:01 Confirmation # [id number] Dictation # [id number] omayra
--- NOTE | 2017-02-05 17:00 | PN ---
DATE: 02/05/2017 REFERRING PHYSICIAN: Dr. Butt SUBJECTIVE: She is lying in the bed, head at 35 degrees. Still complaining of some rhinitis, cough and shortness of breath. No nausea, no vomiting, no diarrhea. No leg pain or leg swelling. OBJECTIVE: GENERAL: No acute distress. VITAL SIGNS: Temp is 98, heart rate is 82, respiratory rate is 20, blood pressure 163/95, pulse ox 9 7% on 2 liters nasal cannula. HEENT: Moist mucous membrane. Crowded airway. NECK: Supple, no JVD. LUNGS: Have scattered rhonchi and wheezing. HEART: S1 and S2. ABDOMEN: Soft, nontender. No organomegaly. EXTREMITIES: There is no edema. NEUROLOGIC: Awake, alert, follows simple command. MEDICATIONS: She is on hydralazine 10 mg q.i.d. p.r.n., Bengay at affected areas, Decadron 2 mg q. 8 hours, DuoNeb q. 6 hours, Fioricet 1 tab q. 4 hours p.r.n., folic acid 1 mg daily, potassium 20 mEq daily, Lamictal 200 mg twice a day, Lipitor 10 mg daily, Mycelex Juan 19 mg 3 times a day, Norvasc 10 mg daily, Pepcid 20 mg daily, Rocephin 1 gram daily, Singulair 10 mg daily, Tylenol p.r.n. basis, Zestril 20 mg daily, Zithromax 500 mg daily. LABORATORY DATA: Reviewed and noted. No new labs available since yesterday. Chest x-ray done yesterday shows hyperinflated lungs. IMPRESSION AND PLAN: Lymphocytic lymphoma with brain involvement, been on radiation and chemotherapy , chronic obstructive lung disease with exacerbation, right upper extremity rotator cuff tear, pulmon génesis hypertension, may have a component of sleep apnea syndrome. The patient already on antibiotics a nd steroids. Still has cough. Will add Singulair 10 mg at bedtime, Tessalon Perles 100 mg twice a d ay. Add Lyrica 25 mg twice a day. Keep head elevated at 45 degrees. Gastric and deep venous thromb osis prophylaxis. Thank you and we will follow with you. Waylon Carmen MD cc: [id number] TT: 02/05/2017 16:59:49 Confirmation # [id number] Dictation # [id number] en
[2017-02-05] MEDS: Albuterol-Ipratrop 3 mg / 0.5 (3 ml) UD IH PRN (21:10)
[2017-02-06] MEDS: Dexamethasone 4 mg/1 ml IVP SCH ×3 (00:06→17:21)
[2017-02-06] MEDS: Albuterol-Ipratrop 3 mg / 0.5 (3 ml) UD IH PRN (06:20)
[2017-02-06] MEDS: Potassium Chloride 20 mEq ER Tab PO SCH (10:03)
[2017-02-06] MEDS: cefTRIAXone 1 gm 100 ML IVPB SCH (10:09)
[2017-02-06] MEDS: Azithromycin 500MG/NS 250ml 250 ML IVPB SCH (10:11)
--- NOTE | 2017-02-06 10:33 | PN ---
DATE: 02/06/2017 SUBJECTIVE: A 66-year-old black female with history of seizure disorder, hypertension, lymphoma stag e IV with CHIEF RADIOLOGY lymphoma as a metastasis. The patient had also been admitted with right upper extremit y weakness, which has resolved on steroids and radiation therapy. 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 The patient has been complaining of some n umbness in her face and chin and also has some burning on her tongue, not responsive to Nystatin or c lotrimazole troches. The patient has a low grade fever of 99.7. She is on IV antibiotics. Her heart rate is slightly ester vated at 116 today. She is status post radiation therapy today. Laboratory data are unremarkable. PLAN: Continue IV antibiotics, bronchodilators and radiation therapy to the brain and continue to ta per steroids. Alex Butt MD cc: [id number] TT: 02/06/2017 10:32:51 Confirmation # [id number] Dictation # [id number] moise
--- NOTE | 2017-02-06 12:04 | PN ---
DATE: 02/06/2017 The patient is in room 376, bed 1. 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 HISTORY OF PRESENT ILLNESS: A 66-year-old female with past medical history significant for stage IV, lymphoid lymphocytic lymphoma, status post chemotherapy in 2016. Last chemo 8 months ago. The mk ent now found to have a mass in the brain, probably metastatic lesion to the brain, also complaining of right shoulder pain, which is ____. The patient was also found to be tachycardic. Therefore, the patient was started on propranolol. The patient is still complaining of cough, although I started R ocephin and azithromycin a few days back. The patient denies any chest pain, no palpitations. Off a nd on when he coughs, she gets some shortness of breath. The patient is lying flat in bed without an y cardiac symptoms at present. PHYSICAL EXAMINATION: VITAL SIGNS: Blood pressure 141/68, respirations 17, pulse 116, temperature 99.7. HEAD: Normocephalic. EYES: Pupils are normal. Conjunctivae are slightly pale. NECK: JVP low. Carotids equal. THORAX: AP diameter normal. LUNGS: No significant rales. CARDIOVASCULAR: S1, S2. ABDOMEN: Soft, nontender. No organomegaly. EXTREMITIES: No clubbing, no cyanosis. LABORATORY DATA: Labs show WBCs 6.01, hemoglobin 11.1, hematocrit 34.6, platelets 115. Sodium 137, potassium 4.3, BUN 23, creatinine 0.7. AST 43, ALT 48. Total protein and albumin normal. PLAN: We will continue Decadron 2 mg IV q. 8 hours, DuoNeb hand nebulizer therapy, folic acid 1 mg d aily, potassium ____ p.o. daily, Lamictal 200 mg b.i.d., Lipitor 10 mg daily, Lyrica 25 mg p.o. b.i.d ., famotidine 20 mg daily, amlodipine 10 mg daily, Rocephin 1 gram daily, Singulair 10 mg at bedtime, lisinopril 20 mg daily, azithromycin 250 mg IV daily. We will continue present therapy, and we will follow with you. Waylon Chawla MD cc: [id number] TT: 02/06/2017 12:03:32 Confirmation # [id number] Dictation # [id number] jn
[2017-02-06] MEDS: Apap-Butalbital-Caffeine 325-50-40mg Tab PO PRN (21:14)
[2017-02-06] MEDS: guaiFENesin-DM 600-30 mg ER Tab PO SCH (22:17)
[2017-02-07] MEDS: Dexamethasone 4 mg/1 ml IVP SCH ×4 (01:50→23:45)
--- NOTE | 2017-02-07 06:23 | PN ---
DATE: 02/06/2017 REFERRING PHYSICIAN: Dr. Butt. SUBJECTIVE: She is sitting up in a bed, at bedside. She has some rhinitis, postnasal drip, cough, breathing is better. No nausea, no vomiting, no diarrhea. No leg pain or leg swelling. OBJECTIVE: GENERAL: No acute distress. VITAL SIGNS: Temperature is 99, heart rate is 102, respiratory rate is 20, blood pressure 145/95. P ulse ox 99% nasal cannula. HEENT: Moist mucous membranes. Crowded airway. Mallampati score is 4. NECK: Supple. No JVD. LUNGS: Have a few scattered rhonchi with expiratory few wheezing. HEART: S1 and S2. ABDOMEN: Soft, nontender. No organomegaly. EXTREMITIES: There is no edema. NEUROLOGIC: Awake, alert, follows simple command. MEDICATIONS: She is on hydralazine 10 mg q.i.d. p.r.n., Beng affected area twice a day, Decadron 2 mg q.8 hours, DuoNeb q.6 hours p.r.n., Fioricet 1 tab q.4 hours p.r.n., folic acid 1 mg daily, potas sium 20 mEq daily, Lamictal is at ____ mg twice a day, Lipitor 10 mg daily, Lyrica 25 mg twice a day, Mycelex Juan 10 mg 3 times a day, Norvasc 10 mg daily, Pepcid 20 mg daily, Rocephin 1 gram daily, Singulair 10 mg daily, Tessalon Perles 100 mg 3 times a day, Tylenol p.r.n. basis, Zestril 20 mg mesfin y, Zithromax 500 mg daily. LABORATORY DATA: Shows no new lab is available. IMPRESSION AND PLAN: Lymphocytic lymphoma with brain involvement ____ radiation and chemotherapy, ch ronic obstructive lung disease with exacerbation, right upper extremity rotator cuff tear, pulmonary hypertension, maybe sleep apnea syndrome. We will continue IV and inhaled bronchodilator and antibio tics, been on Singulair, Tessalon Perles, Lyrica was added. We will add Mucinex 600 mg twice a day. If persistent tachycardia and high blood pressure, may try Cardizem. Gastric prophylaxis, DVT prophy laxis. Waylon Carmen MD cc: Count includes the [facility] TT: 02/06/2017 22:21:35 Confirmation # [id number] Dictation # [id number] wv 02/07/2017 05:22:56
[2017-02-07] MEDS: Apap-Butalbital-Caffeine 325-50-40mg Tab PO PRN ×2 (09:14→23:46)
[2017-02-07] MEDS: Potassium Chloride 20 mEq ER Tab PO SCH (09:14)
[2017-02-07] MEDS: guaiFENesin-DM 600-30 mg ER Tab PO SCH ×2 (09:15→17:12)
[2017-02-07] MEDS: cefTRIAXone 1 gm 100 ML IVPB SCH (09:17)
[2017-02-07] MEDS: Azithromycin 500MG/NS 250ml 250 ML IVPB SCH (09:18)
--- NOTE | 2017-02-07 10:58 | PN ---
DATE: 02/07/2017 SUBJECTIVE: A 66-year-old black female with history of hypertension, seizure disorder, and stage IV lymphoma with PU[employer] G[employer]ENTICE mets. The patient is receiving radiation therapy for her [employer] mets. She also devel oped a fever over the last several days. VITAL SIGNS: She has a temperature of 99.1 today, heart rate of 102, blood pressure 145/95. She has a longstanding history of hypertension. LABORATORY DATA: Her white count is 6.1. The patient is on IV antibiotics. She did have a CT of the chest which showed evidence of pneumonia. The patient will be continued on IV antibiotics and radiation therapy and close monitoring for [employer] progression of her lymphoma. Alex Butt MD cc: [id number] TT: 02/07/2017 10:57:48 Confirmation # [id number] Dictation # [id number] fl
--- NOTE | 2017-02-07 11:37 | PN ---
DATE: 02/07/2017 REASON FOR CONSULTATION AND FOLLOWUP: Tachycardia, small cell lymphoma metastasis to the brain. BRIEF CLINICAL HISTORY: A 66-year-old female with a past medical history significant for a stage IV lymphocytic lymphoma, status post chemo 2016. Now, the patient with brain metastasis and has a tachy cardia on admission. Now patient is on propranolol, rate is well controlled. Denies any chest pain, shortness of breath, any palpitation, but feels nauseous, did not eat the breakfast this morning. PHYSICAL EXAMINATION: VITAL SIGNS: Temperature afebrile, heart rate , blood pressure 146/86. HEENT: PERRLA. Extraocular muscles intact. NECK: Supple. No carotid bruits. No thyromegaly. CHEST: Clear to auscultation. HEART: S1, S2 regular. ABDOMEN: Soft. EXTREMITIES: Clubbing and cyanosis negative. LABORATORY DATA: Blood workup as follows: WBC 6.1, hemoglobin , hematocrit 34.6, platelet cou nt 115. Chemistry shows sodium 137, potassium 4.3, chloride 97, carbon dioxide 35, anion gap of 9, B UN 23, creatinine 0.7. Total bilirubin 0.6, AST 43, ALT 48, alkaline phosphatase 74. Total protein 6.3, albumin 3.7, albumin/globulin ratio 1.4. IMPRESSION: Nausea, metastatic lymphoma, stage IV lymphocytic lymphoma with metastasis to the brain. Most of the symptoms are secondary to metastasis. Tachycardia resolved. RECOMMENDATION: Continue p.r.n. hydralazine. Continue hydralazine, continue amlodipine. Blood pres sure as well as heart rate is faster, we restart propranolol. Probably it fell to the cracks and was discontinued, will restart. Start from 60 mg daily from today. We will follow with you. Will get a chest x-ray; the patient also complained of coughing. Waylon Perez MD cc: [id number] TT: 02/07/2017 11:37:05 Confirmation # [id number] Dictation # [id number] an
[2017-02-07] MEDS: Propranolol 60 mg ER Cap PO SCH (13:40)
--- NOTE | 2017-02-07 14:14 | RAD ---
HISTORY: F/U pneumonia and compare COMPARISON: Multiple serial examinations preceding the most recent study: 02/04/2017. TECHNIQUE: Chest PA and lateral FINDINGS: LUNGS: Hyperinflation, manifestations of COPD. No active pulmonary disease. PLEURA: No significant pleural effusion identified. No pneumothorax apparent. CARDIOVASCULAR: Normal. OSSEOUS STRUCTURES: No significant abnormalities. VISUALIZED UPPER ABDOMEN: Normal. OTHER FINDINGS: None. IMPRESSION: No active disease. No significant interval change compared to the prior examination(s).
--- NOTE | 2017-02-08 00:14 | PN ---
DATE: 02/07/2017 REFERRING PHYSICIAN: Dr. Butt. SUBJECTIVE: This patient is lying in the bed, head at 45 degrees. Had radiation therapy, feels a little tired, still having some cough and mucus production. No nausea, no vomiting, no diarrhea. No leg pain or leg swelling. OBJECTIVE: GENERAL: No acute distress. VITAL SIGNS: Temperature is 98, heart rate is 86, respiratory rate is 20, blood pressure 150/83, pul se 95% on nasal cannula. HEENT: Moist mucous membrane. Has some oral secretion. NECK: Supple, no JVD. LUNGS: Has scattered rhonchi. HEART: S1 and S2. ABDOMEN: Soft, nontender. No organomegaly. EXTREMITIES: There is no edema. NEUROLOGIC: Awake, alert, follows simple command. MEDICATIONS: She is on hydralazine 10 mg q.i.d. p.r.n., Ben[place] at affected area twice a day, Decadro n 4 mg q. 6 hours, DuoNeb q. 6 hours, Fioricet 1 tab q. 4 hours p.r.n., folic acid 1 mg daily, Mati al-LA 60 mg daily, K-Dur 20 mEq daily, Lamictal is 200 mg twice a day, Lipitor 10 mg daily, Lyrica 25 mg twice a day, Mucinex DM 600/30 one tab twice a day, Mycelex Juan 10 mg 3 times a day, Norvasc 1 0 mg daily, Pepcid 20 mg daily, Rocephin 1 gram daily, Singulair 10 mg daily, Tessalon Perles 100 mg 3 times a day, Tylenol on a p.r.n. basis, Zestril 20 mg daily, Zithromax 500 mg daily, Zofran on a p. r.n. basis. LABORATORY DATA: Shows no new lab is available since yesterday. Chest x-ray done shows no active di sease. IMPRESSION AND PLAN: Lymphocytic lymphoma with brain involvement, on radiation therapy, chronic obst ructive lung disease with exacerbation, right upper extremity rotator cuff tear, pulmonary hypertensi on, may have a sleep apnea syndrome. Again, increased cough plus tachycardic. Inderal is again intr oduced. Clinically, I feel maybe that increasing her cough and bronchospasm. We will also get speec h therapy consult to rule out oropharyngeal dysphagia. I will add Lyrica 25 mg twice a day, already on high dose steroids. Continue inhaled bronchodilator, gastric prophylaxis, Deep venous thrombosis prophylaxis. Waylon Carmen MD cc: [id number] TT: 02/08/2017 00:13:51 Confirmation # [id number] Dictation # [id number] mn
--- NOTE | 2017-02-08 00:53 | PN ---
DATE: 02/07/2017 The patient is in room 376, bed 1. REASON FOR CONSULTATION: Followup. 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 In a ddition to this, the patient has difficulty in swallowing with recurrent aspiration associated with c oughing on trying to take liquids. This is all related to progression of disease in the cranial surya a. The patient is currently on radiation for the same and patient tells me that the numbness is impr oving. The pain and the headaches are improving, even though the cough is still persistent, that ted es some time. The patient is able to swallow now Ensure and Sustacal rather easily without going int o bouts of coughing. The patient's right shoulder pain which was related to torn rotator cuff is bet ter. The patient is status post intra-articular injection of steroids after removal of more than 60 mL hemorrhagic fluid. The patient has been having persistent nausea since early this morning, probab ly related to the radiation for which she has been just now placed on IV Zofran. The patient has not had any recent chemotherapy while on radiation. Last chemotherapy was in 05/2016. The patient's bi ggest complaint at this time is coughing, the headaches and persistent nausea. Denies any chest pain , shortness of breath, palpitations, did not eat her breakfast this morning. PHYSICAL EXAMINATION: VITAL SIGNS: Stable. T-max is 98.4, heart rate is 92, blood pressure is 146/86. HEENT: Head is normocephalic, atraumatic. The patient is complaining of numbness in the distributio n of the trigeminal nerve on the right side of the face, though the numbness is better on a scale of 0-10. It is up to 6 now as far as improvement is concerned. Still has numbness on the inside of her mouth and she bit her tongue yesterday. NECK: Supple. There is no adenopathy. No jugular venous distention is noted. LUNGS: Relatively clear to percussion and auscultation. HEART: Reveals S1 and S2 to be normal. ABDOMEN: Soft, nontender. Liver and spleen are not palpable. No rebound, rigidity or guarding is n oted. EXTREMITIES: The patient has limitation of range of motions of the right shoulder secondary to the f indings of a torn rotator cuff and torn biceps tendon insertion into the right humerus. The patient is able to move her left arm. No cyanosis or clubbing of the lower extremities is noted. LABORATORY DATA: From today were reviewed. White count is 6.1, hemoglobin and hematocrit are stable , platelet count is 115,000. Chemistries show sodium of 137, K of 4.3, chloride 97, CO2 of 35, BUN o f 23, creatinine 0.7. Albumin of 3.7 with an A/G ratio of 1.4. MEDICATIONS: The patient's medications were reviewed. I have added Zofran 4 mg IV q. 6 hours contin uously to help with the nausea and increased the Decadron to 4 mg q. 6 hours. ASSESSMENT NOTES AND PLAN: I spoke to the speech pathologist about her diet and inability to swallow . We have to, right now, restrict her to liquids with Sustacal and Ensure clear and, hopefully, once the radiation is completed, her symptoms should start improving. At this point in time, she request ed us to wait before making any further decisions about the value of her PEG in order to continue to nourish her, especially we are not sure how long the recovery will take place as far as swallowing is concerned. We will speak to the movement therapist and the primary doctor as well. In the meantime, con tinue with aggressive treatments as far as radiation is concerned. The patient is towards the tail e nd of the radiation and will plan on giving her 1 dose of chemotherapy with Rituxan and bendamustine, which would be an appropriate combination for this patient's small cell lymphocytic lymphoma with at ypical presentation. We will watch out for the platelet count as it is trending down to make sure it does not bottom out again. Labs for the a.m. have been requested. Britni Bynum MD cc: [id number] TT: 02/08/2017 00:53:16 Confirmation # [id number] Dictation # [id number] mn
[2017-02-08] MEDS: Dexamethasone 4 mg/1 ml IVP SCH ×4 (05:46→23:49)
--- NOTE | 2017-02-08 09:37 | PN ---
DATE: 02/08/2017 A 66-year-old black female with hypertension, seizure disorder, stage IV lymphoma. Atypical lymphoma was seen as mets and received radiation therapy. Discussed with Dr. Bynum as far as finishing her radiation and starting her on Rituxan and chemotherapy. The patient has had fever in the last sever al days, but has been afebrile recently. PHYSICAL EXAMINATION: VITAL SIGNS: Stable. Temperature is still 99.1, blood pressure 159/89. LABORATORY DATA: Her platelet count has been trending down. It is 115. She will be starting Rituxa n soon. The patient also was having some difficulty with swallowing and with nutrition and alimentation. Her weight is critically low. She also has a tear of her right shoulder ACL and a recent episode of rig ht upper extremity hemiparesis, which has resolved with steroids and radiation therapy. REVIEW OF SYSTEMS: A 12-point review of systems is unremarkable. Plan is to assess her swallowing and possibly talk about a PEG tube and starting her on Rituxan chemo therapy soon. Alex Butt MD cc: [id number] TT: 02/08/2017 09:36:14 Confirmation # [id number] Dictation # [id number] omayra
[2017-02-08] MEDS: Propranolol 60 mg ER Cap PO SCH (09:53)
[2017-02-08] MEDS: guaiFENesin-DM 600-30 mg ER Tab PO SCH ×2 (09:54→18:08)
[2017-02-08] MEDS: Azithromycin 500MG/NS 250ml 250 ML IVPB SCH (09:55)
[2017-02-08] MEDS: cefTRIAXone 1 gm 100 ML IVPB SCH (09:55)
[2017-02-08] MEDS: Apap-Butalbital-Caffeine 325-50-40mg Tab PO PRN (12:17)
[2017-02-08] MEDS: Potassium Chloride 20 mEq ER Tab PO SCH (12:58)
--- NOTE | 2017-02-08 14:18 | PN ---
DATE: 02/08/2017 The patient is in room 376, bed 1. REASON FOR CONSULTATION AND FOLLOWUP: Sinus tachycardia, small cell lymphoma metastasis to brain. HISTORY OF PRESENT ILLNESS: The patient is a 66-year-old female with past medical history significan t for stage IV lymphocytic lymphoma, status post chemo in 2015. Now patient with brain metastasis, on admission. The patient on propranolol, with which rate is controlled. The patient lying fl at in bed without chest pain or shortness of breath, but still complaining of cough off and on. PHYSICAL EXAMINATION: VITAL SIGNS: Blood pressure 159/89, respirations 20, pulse 83, temperature 99.1. HEAD: Normocephalic. EYES: Pupils normal. Conjunctivae slightly pale. NECK: JVP low. Carotid equal. THORAX: AP diameter normal. LUNGS: No rales. CARDIOVASCULAR: S1, S2. ABDOMEN: Soft, nontender, no organomegaly. EXTREMITIES: No clubbing, no cyanosis. LABORATORY DATA: WBC 6.1, hemoglobin 11.1, hematocrit 34.6, platelet 115. Sodium 137, potassium 4.3 , BUN 23, creatinine 0.7. 43, ALT 48. Total protein and albumin normal. Chest x-ray on 02/07/2017 showed hyperinflation manifestation of COPD. DIAGNOSES: Metastatic lymphoma stage IV lymphocytic lymphoma with metastasis to brain, sinus tachyca rdia under control, hypertension. PLAN: The patient is on dexamethasone 4 mg IV q. 6 hours, DuoNeb hand nebulizer therapy, folic acid 1 mg daily, Inderal-LA 60 mg p.o. daily, potassium 20 mEq p.o. daily, Lamictal 200 mg b.i.d., Lipitor 10 mg daily, Lyrica 25 mg b.i.d., amlodipine 10 mg daily, Pepcid 20 mg daily, Singulair 10 mg at bed time, Zestril 20 mg p.o. daily, amlodipine 10 mg p.o. daily. The patient also on hydralazine 10 mg q .i.d. p.r.n. We will add hydralazine on a regular basis because pressure is still a little high, and we will monitor blood pressure, and we will follow with you. Waylon Chawla MD cc: [id number] TT: 02/08/2017 14:17:56 Confirmation # [id number] Dictation # [id number] mn
--- NOTE | 2017-02-08 16:24 | PN ---
PROCEDURE DATE: 02/08/2017 REFERRING PHYSICIAN: Dr. Butt. She is sitting side of the bed complaining about shortness of breath and cough, also has a sore tongu e. No nausea, no vomiting, no diarrhea. No leg pain and no leg swelling. OBJECTIVE: GENERAL: No acute distress. VITAL SIGNS: Temp is 99, heart rate is 83, respiratory rate is 20, blood pressure 159/89, pulse ox 9 9% on nasal cannula. HEENT: Moist mucous membranes. Has some ulcers on the tongue. NECK: Supple, no JVD. LUNGS: Have bilateral diffuse expiratory wheezing. HEART: S1 and S2. ABDOMEN: Soft, nontender, no organomegaly. EXTREMITIES: There is no edema. NEUROLOGIC: Awake, alert, follows simple command. MEDICATIONS: She is on hydralazine 10 mg q.i.d. p.r.n. Also, hydralazine 10 mg 3 times a day around the clock, BenGay at affected area twice a day, Decadron 4 mg q. 6 hours, DuoNeb q. 6 hours p.r.n., Fioricet 1 tab q. 4 hours p.r.n., folic acid 1 mg daily, potassium 20 mEq daily, lamotrigine is 200 m g twice a day, Lipitor 10 mg daily, Lyrica 25 mg twice a day, Mucinex DM 600/30 one tab twice a day, Mycelex doyle 10 mg 3 times a day, Norvasc is at 10 mg daily, Pepcid 20 mg daily, Singulair 10 mg da el, Tessalon Perles 100 mg 3 times a day, Tylenol on a p.r.n. basis, Zestril 20 mg daily, Zofran on a p.r.n. basis. LABORATORY DATA: Reviewed and no new lab is available since then. Chest x-ray done yesterday shows hyperinflated lungs consistent with COPD. IMPRESSION AND PLAN: Lymphocytic lymphoma with brain involvement, status post radiation therapy, chr onic obstructive lung disease with exacerbation. Right upper extremity rotator cuff tear, hypertensi on, may have sleep apnea syndrome. Speech therapy evaluated the patient. Spoke to nursing staff, ne ed to discuss with cardiology and PMD. Inderal should be discontinued which is exacerbating her lung disease, increasing cough and shortness of breath. May use other medicines to control the heart rat e and blood pressure. Cardizem could be one of them. For mouth, may start Magic solution swish and swallow before meals and at bedtime, keep head elevated at 45 degree. Continue bronchodilator. Trinity tyler prophylaxis. Deep venous thrombosis prophylaxis. Thank you and we will follow with you. Waylon Carmen MD cc: [phone] TT: 02/08/2017 16:24:02 tn
[2017-02-08] MEDS ORDERED: Aluminum Hydroxide/Magnesium 30 ML, DiphenhydrAMINE 75 MG, Lidocaine 2% Viscous 30 ML PO PRN (16:30)
--- NOTE | 2017-02-08 21:35 | CON ---
DATE: 02/08/2017 REASON FOR CONSULT: Dysphasia. HISTORY OF PRESENT ILLNESS: The patient is a 66-year-old female with hypertension, seizure disorder, and stage IV lymphoma, currently receiving radiation therapy for metastatic disease in her brain. T he patient will also be starting Rituxan chemotherapy. The patient states in the past week she has been having issues with eating, although she . The patient states that she had difficulty swallowing with nutrition, alimentation, her weight as well, a nd wanted to get this evaluated. The patient states that sometimes when she swallows, she feels that she starts choking. The patient has had a PEG tube possibility discussed with her regarding rubina licea while on Rituxan chemotherapy. The patient is unsure of PEG tube at this time. The patient was seen and examined. The patient denies fevers, chills, night sweats, nausea, vomiting , diarrhea, chest pains, or shortness of breath. The patient's did show dysphagia for all types of f ood at this time. The patient's vitals were reviewed. VITAL SIGNS: Stable. PATIENT'S LABORATORIES: No new labs today. SOCIAL HISTORY: Alcohol use; smoking at this time. LABORATORIES: Most recent labs are 02/04: Sodium 137, potassium 4.3, chloride 97, CO2 of 35, BUN 23 , creatinine 0.7, glucose 126. AST 43, ALT 48. White count 6.1, hemoglobin 11.1, platelets 115. PHYSICAL EXAMINATION: Alert and oriented x 3, no acute distress. EYES: EOMI, PERRLA. MOUTH: Moist mucous membranes. Tongue midline. No deviation. No soft palate edema, symmetric sokaogon melly elevation. No uvula deviation. No floor of mouth swelling. NECK: Trachea midline. No tenderness to palpation, or expanding hematoma, or neck masses. RESPIRATORY: No stridor, nonlabored breathing. Aerating well. Voice appears normal. The patient de nies change in voice. NEUROLOGIC: The patient notes that right side of her face sensation is not in fully intact compared to the left. 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 T he patient stated she does drool out of the right side of her mouth at times. Smile appear symmetric . House-Brackmann I. Other cranial nerves appear intact. EARS, NOSE, THROAT: Scoped. A fiberoptic laryngoscope inserted through the patient's right naris, a dvanced through the nasopharynx. No mass or lesion seen. Scope advanced down to the oropharynx. No mass or lesion last seen. Epiglottis seen. . Scope was advanced to the larynx. In the laryn x the left cord paresis noted compared to the right. Right cord does appear to be improving, however , vocal cords do not fully approximate. The patient does have some secretions pooling in the left pi riform sinus as well. The scope removed without incident. ASSESSMENT AND PLAN: The patient is a 66-year-old female with stage IV lymphoma, experiencing dyspha thiago with left cord vocal cord paresis. Recommend a swallow study. Also recommend dietary consults and aspiration precautions. Maintain asp iration precautions in the patient, as she may be aspirating. The patient does need a swallow study. Discussion of a PEG tube has been discussed with the patient prior. Would recommend revisiting PE G tube discussion with the patient, especially while on radiation and Rituxan therapy. Discussed wit h the patient, discussed with nursing and primary. Jose L Mortensen DO cc: [phone] TT: 02/08/2017 21:34:54 Confirmation # [id number] Dictation # [id number] omayra
--- NOTE | 2017-02-08 21:51 | PN ---
DATE: 02/08/2017 This is the patient's hospital visit on the medical floor. For Dr. Bynum. SUBJECTIVE: The patient is a 66-year-old female seen sitting up in bed participating with radiation as per Dr. Monique Coleman, with IV steroids continuing, and Zofran being given for her nausea. 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 With this, the patient is reporting she has a cough , nonproductive, for which she is requesting cough medicine. We will give Manuelitussin DM as trial. S he is otherwise without complaint. She no longer complains of headache nor of shoulder pain. OBJECTIVE: PHYSICAL EXAMINATION: VITAL SIGNS: Temperature 98.3, pulse 81, respirations 19, blood pressure 159/86, pulse ox 98%. HENT: Unremarkable. Still some numbness to the right side of her face. NECK: Supple. HEART: Regular rate. LUNGS: Clear. ABDOMEN: Soft, nontender. EXTREMITIES: No edema. SKIN: Warm, dry, and clear. NEUROLOGICALLY: Awake, alert and oriented, with increased range of motion to her right shoulder afte r the injection, but she does have a torn rotator cuff there. The patient's labs were done 4 days prior. They will be repeated in the morning. The patient had a chest x-ray done yesterday. It was reported as no active disease, no interval ruiz ge compared to prior exams, COPD, hyperinflation. 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 Rotator cuff tear on the right shoul efrain, cough, chronic obstructive pulmonary disease, hypertension, seizure disorder. PLAN: Will be to continue her radiation. Will check her labs in the morning, with Robitussin DM add ed to her regimen to see if this will help her cough. Will monitor clinically and with labs. Raheel Sheikh MD cc: [phone] TT: 02/08/2017 21:51:00 Confirmation # [id number] Dictation # [id number] omayra
[2017-02-09] MEDS: Dexamethasone 4 mg/1 ml IVP SCH ×4 (06:01→23:38)
[2017-02-09 07:55] LABS: ADD MANUAL DIFF? NO
[2017-02-09 08:01] LABS: GRAN # 3.04 (1.4-6.5); HEMATOCRIT 33.9 % (36.0-48.0); LYMPH # 0.6 (1.2-3.4); LYMPH % 15.8 % (22.0-35.0); MEAN CELL VOLUME 90.4 fL (80.0-105.0); MEAN CORPUSCULAR HEMOGLOBIN 30.1 pg (25.0-35.0); MEAN CORPUSCULAR HGB CONC 33.3 g/dl (31.0-37.0); MEAN PLATELET VOLUME 9.5 fl (7.0-11.0); MONO # 0.2 (0.1-0.6); MONO % 4.2 % (1.0-6.0); PLATELET COUNT 176 10^3/uL (120.0-450.0); RED CELL DISTRIBUTION WIDTH 13.6 % (11.5-14.5); WHITE BLOOD COUNT 3.8 10^3/ul (4.5-11.0)
[2017-02-09 08:36] LABS: ALB/GLOB RATIO 1.5 (1.1-1.8); ALKALINE PHOSPHATASE 55 U/L (38-133); ALT/SGPT 34 U/L (7-56); AST/SGOT 29 U/L (15-39); BILIRUBIN,TOTAL 0.8 mg/dL (0.2-1.3); BLOOD UREA NITROGEN 13 mg/dL (7-21); CALCIUM 9.5 mg/dL (8.4-10.5); CARBON DIOXIDE 29 mmol/L (21-33); CHLORIDE 101 mmol/L (98-107); GFR AFRICAN-AMERICAN > 60; GLUCOSE,RANDOM 121 mg/dL (70-110); POTASSIUM 4.4 mmol/L (3.6-5.0); SODIUM 137 mmol/L (132-148); TOTAL PROTEIN 6.4 g/dL (5.8-8.3)
--- NOTE | 2017-02-09 09:46 | PN ---
DATE: 02/09/2017 A 66-year-old black female with history of cerebrovascular accident, history of stage IV lymphoma wit h [employer] mets, hypertension and seizure disorder. The patient was admitted with right upper extremity w eakness, which is improved. She has a right rotator cuff tear. She also has dysphagia and mild apha jennifer from her [employer] lymphoma. She is receiving her last dose of radiation therapy today and she will be started on Rituxan by Dr. Bynum. The patient is doing well. She has been neutropenic in the past . White count is 3.8 today. Otherwise, vital signs are stable. H and H is 11.3 and 33.9, platelet count is up to 176. The patient is tolerating her diet, but difficulty with swallowing. Discussion with Dr. Bynum for a possible PEG. She also needs a possible LifePort for chemotherapy and blood p roducts. PHYSICAL EXAMINATION: VITAL SIGNS: Stable. CHEST: Clear to auscultation and percussion. HEART: Regular sinus rhythm. There is less wheezing. There is less congestion. She is afebrile. PLAN: To finish radiation, start Rituxan chemotherapy and plan for LifePort and possible PEG for ali mentation. Alex Butt MD cc: [id number] TT: 02/09/2017 09:45:41 Confirmation # [id number] Dictation # [id number] en
[2017-02-09] MEDS: Potassium Chloride 20 mEq ER Tab PO SCH (10:05)
[2017-02-09] MEDS: guaiFENesin-DM 600-30 mg ER Tab PO SCH ×2 (10:06→17:22)
[2017-02-09] MEDS ORDERED: Lidocaine 2% Inj (20ml) ONE (11:05)
[2017-02-09] MEDS ORDERED: Midazolam 2 MG/2 ML VIAL ONE (12:42)
[2017-02-09] MEDS ORDERED: Sodium Chloride 0.45% 1,000 ML IV SCH (13:45)
--- NOTE | 2017-02-09 19:45 | VASCULAR ---
PROCEDURE: Ultrasound and fluoroscopic right internal jugular venous access port. CLINICAL HISTORY: Recurrent B-cell lymphoma.Venous port for chemotherapy. PHYSICIAN(S): Kervin Nowak M.D. TECHNIQUE: The relative risks and indications of the procedure were explained to the patient and consent obtained. The patient was placed supine on the arteriogram table and the right neck and chest prepped and draped in the usual sterile fashion. Conscious sedation monitoring was provided throughout the procedure by a nurse. Antibiotics were given prior to the procedure. Under direct ultrasound guidance, the right internal jugular vein was punctured with a micro-puncture set. A 0.035 angled Glidewire was advanced into the IVC. A 4 cm incision was made below the right clavicle and the pocket blunted dissected. A 8 Arabic single-lumen catheter, 24 cm long, was advanced to the SVC/RA junction. The catheter was trimmed and attached to the port. The port aspirates and injects easily. The port was placed in the pocket and closed in 2 layers. The patient tolerated the procedure well. IMPRESSION: Ultrasound and fluoroscopically placed right internal jugular venous access port.
--- NOTE | 2017-02-09 20:22 | PN ---
DATE: 02/09/2017 The patient is in room 376, bed 1. REASON FOR CONSULTATION AND FOLLOWUP: Sinus tachycardia, small cell lymphoma, metastatic to brain, h ypertension, COPD. HISTORY OF PRESENT ILLNESS: The patient is a 66-year-old female who is known to have COPD and also h ad lymphocytic lymphoma, status post chemotherapy in 2016, now patient admitted with brain metastasis . The patient found to have sinus tachycardia and the patient's heart rate control with propranolol. The patient known to have hypertension, right upper extremity rotator cuff tear. The patient also has dysphagia and mild aphasia. The patient complains of cough. Denies any chest pain. PHYSICAL EXAMINATION: VITAL SIGNS: Blood pressure 139/82, respirations 19, pulse 97, temperature 98.3. HEAD: Normocephalic. EYES: Pupils normal. Conjunctivae slightly pale. NECK: JVP low. Carotid equal. THORAX: AP diameter normal. LUNGS: Bilateral expiratory wheezing. CARDIOVASCULAR: S1, S2. ABDOMEN: Soft, nontender, no organomegaly. EXTREMITIES: No clubbing, no cyanosis. LABORATORY DATA: WBC 3.8, hemoglobin 11.3, hematocrit 33.9 and platelet 176. Sodium 137, potassium 4.4, BUN 13, creatinine 0.7. AST, ALT normal. Total protein and albumin normal. DIAGNOSES: Metastatic lymphoma stage IV, lymphocytic lymphoma with metastasis to brain, sinus tachyc ardia under control with propranolol, hypertension, chronic obstructive pulmonary disease, right uppe r extremity rotator cuff tear, dysphagia, mild aphasia. PLAN: The patient is getting dexamethasone 4 mg IV q. 6 hours, DuoNeb hand nebulizer therapy, potass ium 20 mEq p.o. daily, Lipitor 10 mg p.o. daily, amlodipine 10 mg p.o. daily, Singulair 10 mg p.o. at bedtime, lisinopril 20 mg p.o. daily. We will continue present therapy. We will follow with you. Waylon Chawla MD cc: [id number] TT: 02/09/2017 20:21:44 Confirmation # [id number] Dictation # [id number] jn
--- NOTE | 2017-02-09 23:09 | PN ---
DATE: 02/09/2017 This is the patient's hospital visit on the medical floor. SUBJECTIVE: The patient is a 66-year-old female, seen lying awake in bed, known to suffer from small cell lymphocytic lymphoma affecting her brain with trigeminal nerve damage on the right side of her face. She has a cough for which she was recommended cough medications; however, since she did not re quest them, it was not given by nursing. Otherwise, the patient says her headache is occasional with shoulder pain better. She continues radiation as per Dr. Coleamn, radiation oncology. PHYSICAL EXAMINATION: VITAL SIGNS: Temperature 98.3, pulse 97, respirations 19, blood pressure 140/82, pulse ox 98%. HEENT: Unremarkable. The patient has a wig on. NECK: Supple. HEART: Regular rate. LUNGS: Clear. ABDOMEN: Soft, nontender. EXTREMITIES: No edema. SKIN: Warm, dry and clear. NEUROLOGIC: Awake, alert with increased range of motion of the right shoulder. LABORATORY DATA: The patient's labs were done. White blood cell count of 3.8, hemoglobin 11.3, morgan tocrit 33.9, platelet count of 176,000. Chem metabolic panel completely within normal range. Her to xicology showed lamotrigine level 5.9 on 01/26. The patient did have a port placed today as per Dr. Kervin Nowak on the right anterior chest wall. ASSESSMENT: Stage IV small cell lymphocytic lymphoma with mass effect to the brain and thickened tri geminal nerve continues with radiation, rotator cuff right shoulder, cough, chronic obstructive pulmo nary disease, hypertension, seizure disorder, headache. PLAN: The patient is to continue present medical regimen with the patient's Robitussin DM to be give n. She also continues her Decadron 4 mg IV q. 6 hours. Raheel Sheikh MD cc: [phone] TT: 02/09/2017 23:08:45 Confirmation # [id number] Dictation # [id number] omayra
--- NOTE | 2017-02-09 23:41 | PN ---
DATE: 02/09/2017 REFERRING PHYSICIAN: Dr. Butt SUBJECTIVE: The patient is lying in the bed, head at 45 degrees. Still has some cough and shortness of breath, sputum production. No nausea, no vomiting, diarrhea. No leg pain or leg swelling. OBJECTIVE: GENERAL: No acute distress. VITAL SIGNS: Temperature is 98, heart rate is 97, respiratory rate is 20, blood pressure 140/82, pul se ox 98% on 3L nasal cannula. HEENT: Moist mucous membranes. Tongue also is a little better. NECK: Supple, no JVD. LUNGS: Scattered rhonchi and wheezing. HEART: S1 and S2. ABDOMEN: Soft, nontender. No organomegaly. EXTREMITIES: There is no edema. NEUROLOGIC: Awake, alert, follows simple command. MEDICATIONS: She is on hydralazine 10 mg q.i.d. p.r.n., and also hydralazine 10 mg 3 times a day, Be ngay affected area twice a day, Decadron 4 mg q. 6 hours, DuoNeb q. 6 hours, Fioricet 1 tab q. 4 hour s p.r.n., folic acid 1 mg daily, potassium 20 mEq daily, lamotrigine is at 20 mg twice a day, Lipitor 10 mg daily, Lyrica 25 mg twice a day, Mucinex DM 600/30 one tab twice a day, Norvasc 10 mg daily, P epcid is at 20 mg daily, Singulair 10 mg daily, Tessalon Perles 100 mg 3 times a day, Tylenol on a p. r.n. basis, Zestril 20 mg daily, Zofran on a p.r.n. basis. LABORATORY DATA: Shows hemoglobin 11.3, hematocrit 33.9, WBC 3.8, platelets 176. Sodium 137, potass ium 4.4, chloride 101, bicarbonate 29, BUN 13, creatinine 0.7, glucose 121, calcium 9.5, AST 29, ALT 34, alkaline phosphatase is 55, albumin is 3.8. MICROBIOLOGY: Blood culture and urine culture no growth. IMPRESSION: Lymphocytic lymphoma with brain involvement with no radiation therapy. Planning to go o n chemotherapy, chronic obstructive lung disease with exacerbation, right upper extremity rotator cuf f tear. Hypertension. May have sleep apnea syndrome. Pulmonary point of view, continue p.o. and in haled bronchodilator. Keep head elevated at 45 degrees, aspiration precaution. Avoid beta harman. Gastric prophylaxis. On high dose of steroids. Out of bed to chair. Thank you and we will follow with you. Waylon Carmen MD cc: [id number] TT: 02/09/2017 23:40:55 Confirmation # [id number] Dictation # [id number] ln
[2017-02-10] MEDS: Dexamethasone 4 mg/1 ml IVP SCH ×4 (05:19→23:31)
[2017-02-10] MEDS: Potassium Chloride 20 mEq ER Tab PO SCH (09:06)
[2017-02-10] MEDS: guaiFENesin-DM 600-30 mg ER Tab PO SCH ×2 (09:06→17:09)
--- NOTE | 2017-02-10 12:31 | PN ---
DATE: 02/10/2017 I am covering for Dr. Butt. The patient was seen and examined, complained of not eating well because of swallow issues. She had multiple swallowing evaluations done. She does well with the thin and semi-liquid foods. She also p artly complained of not feeling hungry. Currently, she is getting radiation and could be dysmotility issue. PHYSICAL EXAMINATION: GENERAL: She is awake and alert. VITAL SIGNS: She is afebrile, pulse 73, respirations 18, blood pressure 163/93. LUNGS: Bilateral fair airflow, no rhonchi or crackle. HEART: S1, S2 audible. ABDOMEN: Soft, nontender, no rebound, no guarding. NEUROLOGIC: She is awake and alert, moves all extremities. EXTREMITIES: Bilateral legs, no edema. LABORATORY EXAMINATION: WBC 3.8, hemoglobin 11.3, hematocrit 33.9, platelets 176. Chemistry: Sodiu m 137, potassium 4.4, chloride 101, CO2 29, BUN 13, creatinine 0.7, blood sugar of 121. Her blood cu lture and urine cultures are unremarkable. ASSESSMENT: 1. Lymphocytic leukemia, currently getting radiation and had chemotherapy in 2016. 2. Brain metastasis. 3. Status post sinus tachycardia, controlled on propranolol. 4. Hypertension. 5. Chronic obstructive pulmonary disease. 6. Small cell lymphocytic lymphoma with metastasis to the alma and the trigeminal nerve extending in to the Meckel's cave and she is getting brain radiation for that. PLAN: Currently, the patient is on Decadron. She is on hydralazine 10 mg 3 times a day. She is get ting Decadron 4 mg q. 6. She is on nebulizer treatment. She is on statin, Lyrica. She is on Norvas c 10 mg daily and Singulair. We will continue that. We will check her CBC and CMP intermittently. Olivia Ferreira MD cc: [id number] TT: 02/10/2017 12:30:17 Confirmation # [id number] Dictation # [id number] tn
--- NOTE | 2017-02-10 14:55 | PN ---
DATE: 02/10/2017 Hospital visit on the medical floor. For Dr. Bynum. SUBJECTIVE: The patient is a 66-year-old female with small cell lymphocytic lymphoma affecting the t rigeminal nerve, status post radiation treatments with modest improvement on a daily basis with her h eadache occasional, with her cough now improved, with the patient otherwise in no acute distress this visit. OBJECTIVE: PHYSICAL EXAMINATION: VITAL SIGNS: Temperature 98.6, pulse 70, respirations 18, blood pressure 160/88 with a pulse ox of 9 7%. HEENT: Unremarkable with numbness to the side of her face persisting at times, she reports. NECK: Supple. HEART: Regular rate. LUNGS: Clear. ABDOMEN: Soft, nontender. EXTREMITIES: No edema with increased range of motion of her right shoulder after the injection with Dr. Cortez. SKIN: Otherwise, warm, dry and clear. NEUROLOGIC: Awake and alert. LABORATORY DATA: The patient's labs were done. White blood cell count of 3.8 from yesterday with he r other labs to be repeated tomorrow. The patient did have a port placed yesterday. The patient also had a cardiac catheterization, report which we will review once it is available. Th is was done by Dr. Kervni Nowak at the time of her port placement. ASSESSMENT: Stage IV small cell lymphocytic lymphoma with mass effect to the brain with mass effect on the trigeminal nerve, history of rotator cuff tear on the right shoulder, chronic obstructive pulm onary disease, hypertension, seizure disorder, headache, which is now improved. PLAN: The patient is to continue present medical regimen with radiation to continue as per Dr. Coleman's recommendations with patient's labs to be monitored and patient monitored clinically. She continues on her present medical regimen, which includes Decadron 4 mg IV q. 6 hours with gastrointestinal pro phylaxis as indicated. We will monitor clinically and with labs. Raheel Sheikh MD cc: [id number] TT: 02/10/2017 14:54:39 Confirmation # [id number] Dictation # [id number] moise
--- NOTE | 2017-02-10 15:00 | PN ---
DATE: 02/10/2017 The patient is in room 376, bed 1. REASON FOR CONSULTATION AND FOLLOWUP: Sinus tachycardia, small cell lymphoma and metastatic to brain, hypertension, COPD. HISTORY OF PRESENT ILLNESS: The patient is a 66-year-old female, known to have COPD and also had lymphocytic lymphoma, status post chemotherapy in 2016, now admitted with brain metastasis. The patient found to have sinus tachycardia and patient's heart rate was controlled with propranolol. The patient known to have hypertension, right upper extremity rotator cuff tear. The patient also has dysphagia and mild aphasia. The patient still complains of cough, but no chest pain. Breathing is stable. PHYSICAL EXAMINATION: VITAL SIGNS: Blood pressure 163/93, respirations 18, pulse 70, patient is afebrile. HEAD: Normocephalic. EYES: Pupils normal. Conjunctivae are slightly. Conjunctivae slightly pale. NECK: JVP low. Carotid equal. THORAX: AP diameter normal. LUNGS: Showing expiratory wheezing. CARDIOVASCULAR: S1, S2. ABDOMEN: Soft, nontender, no organomegaly. EXTREMITIES: No clubbing, no cyanosis. LABORATORY DATA: WBC 3.8, hemoglobin 11.3, hematocrit 33.9, platelets 176. Sodium 137, potassium 4.4, BUN 13, creatinine 0.7, random glucose 121. AST 29, ALT 34, calcium 9.5. DIAGNOSES: Metastatic lymphoma stage IV, lymphocytic lymphoma with metastasis to the brain, sinus tachycardia under control with propranolol, hypertension, chronic obstructive pulmonary disease, right upper extremity rotator cuff tear, dysphagia, mild aphasia. PLAN: The patient still has high blood pressure, will increase dose of Hydralazine from 10mg TID to 25mg TID. The patient is getting lisinopril 20 mg p.o. daily, Singulair 10 mg daily, amlodipine 10 mg daily, Lipitor 10 mg daily, potassium 20 mEq daily, DuoNeb hand nebulizer therapy, Lyrica at 25 mg b.i.d. will follow with you. Waylon Chawla MD cc: [id number] TT: 02/10/2017 14:59:51 Confirmation # [id number] Dictation # [id number] jn MTDD
[2017-02-10] MEDS: Pantoprazole 20 mg EC Tab PO SCH (17:10)
--- NOTE | 2017-02-10 17:10 | PN ---
DATE: 02/10/2017 REFERRING PHYSICIAN: Dr. Butt. SUBJECTIVE: She just took a walk around the nurses station with the help of a therapist. Got short of breath. Needed to use nebulizer treatment. Still has a cough, clear sputum production. No nause a, no vomiting or diarrhea. No leg pain or leg swelling. OBJECTIVE: GENERAL: No acute distress. VITAL SIGNS: Temperature is 98, heart rate is 73, respiratory rate is 20, blood pressure 160/88, pul se ox is 96% on room air. HEENT: Moist mucous membranes. Crowded airway. Mallampati score is 4. NECK: Supple. No JVD. LUNGS: Have scattered rhonchi. HEART: S1, S2. ABDOMEN: Soft, nontender. No organomegaly. EXTREMITIES: There is no edema. NEUROLOGIC: Awake, alert, follows simple commands. MEDICATIONS: She is on hydralazine 10 mg q.i.d. p.r.n. and 25 mg 3 times a day p.o. around the clock , Decadron is 4 mg q. 6 hours, DuoNeb q. 6 hours, Fioricet 1 tab q. 4 hours p.r.n., potassium supplem ent 20 mEq, Lipitor 10 mg daily, Lyrica 25 mg twice a day, getting simethicone with diphenhydramine a nd lidocaine for sore mouth and throat, Mucinex DM 600/30 one tab q. 12 hours, Mycelex doyle 10 mg 3 times a day, Norvasc 10 mg daily, Protonix 20 mg daily, Singulair 10 mg daily, Tessalon Perles 100 m g 3 times a day, Tylenol p.r.n., Zestril 20 mg daily, Zofran on a p.r.n. basis. LABORATORY DATA: Reviewed. No new lab is available since yesterday. 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 Case discussed with oncology services. Will continue p.o. a nd inhaled bronchodilator. Already on high dose of steroids. Aspiration precaution. Gastric prophy laxis, deep venous thrombosis prophylaxis. Thank you, and will follow with you. Waylon Carmen MD cc: [facility] TT: 02/10/2017 17:09:22 Confirmation # [id number] Dictation # [id number] mn
[2017-02-11] MEDS: Dexamethasone 4 mg/1 ml IVP SCH ×3 (05:58→17:23)
[2017-02-11 07:11] LABS: ADD MANUAL DIFF? NO
[2017-02-11 07:18] LABS: GRAN % 81.9 % (50.0-68.0); HEMATOCRIT 34.2 % (36.0-48.0); LYMPH # 0.5 (1.2-3.4); MEAN CELL VOLUME 90.5 fL (80.0-105.0); MEAN CORPUSCULAR HEMOGLOBIN 30.2 pg (25.0-35.0); MEAN CORPUSCULAR HGB CONC 33.3 g/dl (31.0-37.0); MONO # 0.2 (0.1-0.6); MONO % 5.1 % (1.0-6.0); PLATELET COUNT 201 10^3/uL (120.0-450.0); RED CELL DISTRIBUTION WIDTH 14.1 % (11.5-14.5); WHITE BLOOD COUNT 4.2 10^3/ul (4.5-11.0)
[2017-02-11] MEDS: Pantoprazole 20 mg EC Tab PO SCH (07:30)
[2017-02-11 07:40] LABS: ALB/GLOB RATIO 1.6 (1.1-1.8); ALKALINE PHOSPHATASE 59 U/L (38-133); ALT/SGPT 33 U/L (7-56); AST/SGOT 32 U/L (15-39); BILIRUBIN,TOTAL 0.6 mg/dL (0.2-1.3); BLOOD UREA NITROGEN 13 mg/dL (7-21); CALCIUM 9.7 mg/dL (8.4-10.5); CARBON DIOXIDE 31 mmol/L (21-33); CHLORIDE 100 mmol/L (95-110); GFR AFRICAN-AMERICAN > 60; GLUCOSE,RANDOM 122 mg/dL (70-110); POTASSIUM 4.1 mmol/L (3.6-5.0); SODIUM 138 mmol/L (132-148); TOTAL PROTEIN 6.3 g/dL (5.8-8.3)
[2017-02-11] MEDS: Potassium Chloride 20 mEq ER Tab PO SCH (11:16)
[2017-02-11] MEDS: guaiFENesin-DM 600-30 mg ER Tab PO SCH (11:16)
[2017-02-11] MEDS: Apap-Butalbital-Caffeine 325-50-40mg Tab PO PRN ×2 (11:54→17:23)
--- NOTE | 2017-02-11 12:11 | PN ---
DATE: 02/11/2017 SUBJECTIVE: The patient is a 66-year-old, seen and examined, lying in bed, complained of cough, teddy cially after eating, complained of generalized weakness. Otherwise, no other active issue. PHYSICAL EXAMINATION: VITAL SIGNS: She is afebrile, pulse 75, respirations 18, blood pressure 161/95. LUNGS: Bilateral soft crackle in upper lung region. Otherwise, no rhonchi. HEART: S1, S2 audible. ABDOMEN: Soft, nontender, no rebound, no guarding. NEUROLOGIC: She is awake and alert, communicative, able to move all extremities, has generalized wea kness. LABORATORY EXAMINATION: WBC is 4.2, hemoglobin 11.4, hematocrit 34, platelets of 201. Chemistry: S odium 138, potassium 4.1, chloride 100, CO2 31, BUN 13, creatinine 0.7, blood sugar 122. Her blood c ulture and urine cultures are negative. ASSESSMENT: 1. Lymphocytic leukemia, on radiation with brain metastasis. She is getting radiation to the brain metastasis. 2. Sinus tachycardia, resolved. 3. Hypertension. 4. Dysphagia, probably secondary to radiation. 5. History of chronic obstructive pulmonary disease. 6. Deconditioning and difficulty walking. PLAN: At this point, there is no new recommendation. We will continue current medical treatment. S he is on dexamethasone. That can be maneuvered by Dr. Bynum. Otherwise, we will continue her on h ydralazine. We will continue her on potassium. We will hold off her blood work for tomorrow and reo rder for Monday. Olivia Ferreira MD cc: [id number] TT: 02/11/2017 12:11:29 Confirmation # [id number] Dictation # [id number] tn
--- NOTE | 2017-02-11 14:07 | PN ---
DATE: 02/11/2017 Hospital visit on the medical floor. For Dr. Bynum. 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 Also with a cough which present remedies are not helping, she reports. Otherwise, sh maria reports she is finished with her radiation, has completed it yesterday, along with having her port placed without complaint in that area in the right upper chest. OBJECTIVE: PHYSICAL EXAMINATION: VITAL SIGNS: Temperature 98.3, pulse 75, respirations 18, blood pressure 161/95, pulse ox 98%. HEENT: Unremarkable. NECK: Supple. HEART: Regular rate. LUNGS: Rare rhonchi. ABDOMEN: Soft, nontender. EXTREMITIES: No edema. No discomfort in the right shoulder. SKIN: Warm, dry and clear. NEUROLOGIC: Awake, alert with numbness to her face with a headache on the right side reported. LABORATORY DATA: The patient's labs were done. White blood cell count 4.2, hemoglobin 11.4, hematoc rit 34.2, platelet count of 201,000 with a chem metabolic panel completely within normal limits. 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 PLAN: After conversation with Dr. Bynum, we will continue her present medical regimen. We will no t check labs tomorrow, but the following day as they have been without significant change recently in the patient's hospital stay. We will continue her IV Decadron along with GI prophylaxis with Proton ix with the patient to have her Robitussin-DM made as a liquid 2 teaspoons q. 4 hours as needed for c ough. We will also humidify her oxygen. Continue with her present medical regimen and stop her anti fungal Mycelex troches for now, as there does not appear to be any fungal component. It does not lauren ear that she has oropharyngeal candidiasis any further as this has been treated. With this, the prog nosis for this patient is guarded, as she has now completed her radiation with port placed for eventu al chemo should it be indicated, and for IV access. Raheel Aguilar CHAMBERLAIN cc: [phone] TT: 02/11/2017 14:07:07 Confirmation # [id number] Dictation # [id number] rn
--- NOTE | 2017-02-11 17:20 | PN ---
DATE: 02/11/2017 REFERRING PHYSICIAN: Dr. Butt SUBJECTIVE: She is lying in the bed, at bedside. Night was unremarkable. Still has some rh initis, cough and sputum production, no nausea, no vomiting, no diarrhea, no leg pain or leg swelling . OBJECTIVE: GENERAL: No acute distress. VITAL SIGNS: Temperature is 98, heart rate is 75, respiratory rate is 20, blood pressure 150/82, pul se ox 98% on room air. HEENT: Moist mucous membranes. Crowded airway. Mallampati score is 4. NECK: Supple. No JVD. LUNGS: Have a few crackles at the bases, scattered rhonchi. HEART: S1 and S2. ABDOMEN: Soft, nontender. No organomegaly. EXTREMITIES: There is trace edema. NEUROLOGIC: Awake, alert, follows simple commands. MEDICATIONS: He is on hydralazine 25 mg 3 times a day, Decadron 4 mg q. 6 hours, Fioricet q. 4 hours p.r.n., potassium 20 mEq daily, Lipitor 10 mg daily, Lyrica 25 mg twice a day, Magic Solution to lee ann th q. 6 hours p.r.n., Norvasc 10 mg daily, Protonix 40 mg daily, Robitussin-DM 10 mL q. 4 hours p.r.n ., Singulair 10 mg daily, Tessalon Perles 100 mg 3 times a day, Tylenol on a p.r.n. basis, Zestril 2 0 mg daily, Zofran on a p.r.n. basis. LABORATORY DATA: Shows hemoglobin 11.4, hematocrit 34.2, WBC 4.2, platelet count is 201. Sodium 138 , potassium 4.1, chloride 100, bicarbonate 31, BUN 13, creatinine 0.7, glucose 126, calcium is 9.7. AST is 232, ALT 33, alkaline phosphatase is 59, albumin is 3.8. IMPRESSION AND PLAN: Lymphocytic lymphoma with brain involvement, requiring radiation therapy and al so has been started on chemotherapy, chronic obstructive lung disease, right upper extremity rotator cuff tear, hypertension, chronic cough. From Pulmonary point of view, doing okay. Keep head elevate d at 45 degree. Continue bronchodilator. Gastric prophylaxis, high dose of steroids for lymphoma. T ry to avoid beta harman if possible. Continue Lyrica, Mucinex, Singulair, Tessalon Perles. Also, vincent sifuentes will add antihistamine. Aspiration precautions. Thank you and we will follow with you. Waylon Carmen MD cc: [phone] TT: 02/11/2017 17:20:05 Confirmation # [id number] Dictation # [id number] ln
[2017-02-11] MEDS: guaiFENesin DM 200 mg-20 mg/10 ml UD PO PRN (21:26)
[2017-02-12] MEDS: guaiFENesin DM 200 mg-20 mg/10 ml UD PO PRN ×2 (05:31→19:08)
[2017-02-12] MEDS: Dexamethasone 4 mg/1 ml IVP SCH ×5 (05:31→23:35)
[2017-02-12] MEDS ORDERED: Metoprolol 1 mg/ml Inj IVP ONE (06:37)
--- NOTE | 2017-02-12 06:42 | CP.PCM.PN ---
Subjective - Date & Time of Evaluation Date of Evaluation: 02/12/17 Time of Evaluation: 06:38 - Subjective Subjective: Responded to a RAPID RESPONSE announcement promptly. FSBS 123 mg%.BP 194/103 HR 126/Min,pulse ox 94 % on 2L/min.Temp:99*F RR 20/min. No foaming at mouth angle. Had upper Patient seems post ictal. Opens eyes .Moves eyes.Pupils equal , reactive. This 66 year old woman was admitted with right upper extremity weakness,headache. Has PMH HTN,COPD,brain mass,seizure disorder, metastatic lymphoma in [place]. 7.24/46/76/19 on 2L/min. Objective - Vital Signs/Intake and Output Vital Signs (last 24 hours): Temp Pulse Resp BP Pulse Ox 98.8 F 108 H 19 161/98 H 97 02/11/17 18:03 02/11/17 18:03 02/11/17 18:03 02/11/17 18:03 02/11/17 18:03 Intake and Output: 02/11/17 02/12/17 18:59 06:59 Intake Total 540 Balance 540 - Medications Medications: Current Medications Acetaminophen (Tylenol 325mg Tab) 650 mg PO Q4H PRN PRN Reason: Fever >100.4 F Last Admin: 02/01/17 18:00 Dose: 650 mg Acetaminophen/Butalbital/Caffeine (Fioricet) 1 tab PO Q4H PRN PRN Reason: Headache Last Admin: 02/11/17 17:23 Dose: 1 tab Albuterol/Ipratropium (Duoneb 3 Mg/0.5 Mg (3 Ml) Ud) 3 ml IH [id number] PRN PRN Reason: Shortness of Breath Last Admin: 02/06/17 06:20 Dose: 3 ml Amlodipine Besylate (Norvasc) 10 mg PO DAILY [facility] Last Admin: 02/11/17 11:17 Dose: 10 mg Atorvastatin Calcium (Lipitor) 10 mg PO DIN [facility] Last Admin: 02/11/17 17:23 Dose: 10 mg Benzonatate (Tessalon Perles) 100 mg PO TID [facility] Last Admin: 02/11/17 17:40 Dose: 100 mg Al Hydrox/Mg Hydrox/Simethicone 30 ml/Diphenhydramine HCl 75 mg/Lidocaine 30 ml 0 ml PO Q6H PRN PRN Reason: Mouth/Throat Pain Dexamethasone (Decadron Inj) 4 mg IVP Q6 [facility] Last Admin: 02/12/17 05:31 Dose: 4 mg Guaifenesin/Dextromethorphan (Robitussin Dm) 10 ml PO Q4H PRN PRN Reason: Cough Last Admin: 02/12/17 05:31 Dose: 10 ml Hydralazine HCl (Apresoline) 25 mg PO TID [facility] Last Admin: 02/11/17 17:21 Dose: 25 mg Lisinopril (Zestril) 20 mg PO DAILY [facility] Last Admin: 02/11/17 11:18 Dose: 20 mg Loratadine (Claritin) 10 mg PO DAILY [facility] Last Admin: 02/11/17 17:21 Dose: 10 mg Metoprolol Tartrate (Lopressor) 5 mg IVP ONCE ONE Stop: 02/12/17 06:38 Montelukast Sodium (Singulair) 10 mg PO HS [facility] Last Admin: 02/11/17 21:23 Dose: 10 mg Ondansetron HCl (Zofran Inj) 4 mg IVP Q6H [facility] Last Admin: 02/12/17 05:32 Dose: 4 mg Pantoprazole Sodium (Protonix Ec Tab) 20 mg PO 0730 [facility] Last Admin: 02/11/17 07:30 Dose: 20 mg Potassium Chloride (K-Dur 20 Meq Er Tab) 20 meq PO BRK [facility] Last Admin: 02/11/17 11:16 Dose: 20 meq Pregabalin (Lyrica) 25 mg PO BID [facility] Last Admin: 02/11/17 17:41 Dose: 25 mg - Labs Labs: 02/11/17 06:40 02/11/17 06:40 - Constitutional Appears: No Acute Distress - Head Exam Head Exam: ATRAUMATIC, NORMAL INSPECTION, NORMOCEPHALIC - Eye Exam Eye Exam: Normal appearance - Neck Exam Neck Exam: Tenderness - Respiratory Exam Respiratory Exam: Clear to Ausculation Bilateral, NORMAL BREATHING PATTERN. absent: Accessory Muscle Use, Rales, Rhonchi, Wheezes, Respiratory Distress, Stridor - Cardiovascular Exam Cardiovascular Exam: Tachycardia, REGULAR RHYTHM. absent: JVD - GI/Abdominal Exam GI & Abdominal Exam: Normal Bowel Sounds. absent: Distended - Rectal Exam Rectal Exam: Deferred - Extremities Exam Extremities Exam: Normal Inspection - Back Exam Back Exam: NORMAL INSPECTION - Neurological Exam Additional comments: Post ictal. - Psychiatric Exam Psychiatric exam: Depressed - Skin Skin Exam: Normal Color Assessment and Plan - Assessment and Plan (Free Text) Assessment: A/P:Seizure. Sinus tachycardia. Uncontrolled HTN. Brain mass. Lymphoma. HTN. COPD. CBC,CMP,trop,abg cxr,ekg. lopressor 5 mg iv x1. Ativan 2 mg IV x 1. Placed call to who is covering for . Nurse will notify .
[2017-02-12 06:55] LABS: ADD MANUAL DIFF? NO
[2017-02-12 06:58] LABS: BASO # 0.01 K/mm3 (0.0-2.0); BASO % 0.1 % (0.0-3.0); EOS % 0.1 % (1.5-5.0); GRAN # 9.83 (1.4-6.5); GRAN % 75.1 % (50.0-68.0); HEMATOCRIT 37.6 % (36.0-48.0); LYMPH # 2.4 (1.2-3.4); LYMPH % 18.1 % (22.0-35.0); MEAN CELL VOLUME 93.3 fL (80.0-105.0); MEAN CORPUSCULAR HGB CONC 33.2 g/dl (31.0-37.0); MEAN PLATELET VOLUME 9.1 fl (7.0-11.0); MONO # 0.9 (0.1-0.6); MONO % 6.6 % (1.0-6.0); PLATELET COUNT 226 10^3/uL (120.0-450.0); RED CELL DISTRIBUTION WIDTH 14.4 % (11.5-14.5); WHITE BLOOD COUNT 13.1 10^3/ul (4.5-11.0)
[2017-02-12 07:12] LABS: ALB/GLOB RATIO 1.6 (1.1-1.8); ALKALINE PHOSPHATASE 65 U/L (38-133); ALT/SGPT 22 U/L (7-56); AST/SGOT 38 U/L (15-39); BILIRUBIN,TOTAL 0.6 mg/dL (0.2-1.3); BLOOD UREA NITROGEN 11 mg/dL (7-21); CALCIUM 9.5 mg/dL (8.4-10.5); CARBON DIOXIDE 22 mmol/L (21-33); CHLORIDE 99 mmol/L (98-107); GFR AFRICAN-AMERICAN > 60; GLUCOSE,RANDOM 135 mg/dL (70-110); POTASSIUM 3.3 mmol/L (3.6-5.0); SODIUM 139 mmol/L (132-148); TOTAL PROTEIN 6.5 g/dL (5.8-8.3)
[2017-02-12 07:23] LABS: TROPONIN I 0.03 ng/mL
[2017-02-12] MEDS ORDERED: levETIRAcetam 500mg IVPB 100 ML IV STA (07:50)
[2017-02-12] MEDS: Potassium Chloride 10 mEq 100 ML IVPB SCH ×2 (09:04→11:51)
[2017-02-12] MEDS: Pantoprazole 20 mg EC Tab PO SCH (09:14)
[2017-02-12] MEDS: Potassium Chloride 20 mEq ER Tab PO SCH (09:14)
[2017-02-12] MEDS ORDERED: Cefepime 1gm in NS 100ml 100 ML IVPB SCH (10:00)
[2017-02-12] MEDS ORDERED: Dextrose 5%/0.45% NS 1,000 ML IV SCH (10:30)
--- NOTE | 2017-02-12 11:27 | RAD ---
HISTORY: Rapid Response COMPARISON: 02/07/2017 FINDINGS: The right subclavian line terminates in the right atrium. LUNGS: The lungs are well inflated and clear. There is bibasilar atelectasis. PLEURA: No significant pleural effusion identified, no pneumothorax apparent. CARDIOVASCULAR: Normal. OSSEOUS STRUCTURES: No significant abnormalities. VISUALIZED UPPER ABDOMEN: Normal. OTHER FINDINGS: None. IMPRESSION: No active pulmonary disease.
[2017-02-12] MEDS: Vancomycin 1gm in NS 250ml 250 ML IVPB SCH (14:25)
--- NOTE | 2017-02-12 14:59 | PN ---
DATE: 02/12/2017 The patient is 66-year-old, seen and examined, seemed to be confused and disoriented, lethargic. The patient, around 6:00 this morning, she had tonic-clonic seizure. She was given IV Ativan, started o n Keppra and neuro consult has been requested. When I saw patient this morning, she was sleepy, but arousable. I instructed staff to keep her n.p.o., give her IV fluid and her medication will be ramirez ed to IV until she is more alert and able to swallow. PHYSICAL EXAMINATION: VITAL SIGNS: This morning, temperature is 99.4, pulse 106, respirations 20, blood pressure 140/100. LUNGS: Bilateral soft crackle in upper lung region. HEART: S1, S2 audible. Somewhat tachycardic. ABDOMEN: Soft, nontender, no rebound, no guarding. NEUROLOGIC: She is sleepy, but arousable. LABORATORY EXAMINATION: WBCs 13, hemoglobin 12, hematocrit 37, platelet 226. Chemistry: Sodium 139 , potassium 3.3, chloride 99, CO2 22, BUN 11, creatinine 0.8, blood sugar of 123. Her initial lactic acid was 10.5, followup is 1.5. Blood culture, urine cultures are ordered. She had x-ray chest done this morning that shows no active pulmonary disease. ASSESSMENT AND PLAN: 1. New onset of seizure. 2. Lymphocytic lymphoma with brain mets, currently has received palliative radiation. 3. Chronic obstructive pulmonary disease. 4. Hypertension. 5. New leukocytosis, rule out underlying infection. She has been empirically started on Maxipime. Dr. Suh will be consulted. Blood cultures, uri ne cultures are sent. X-ray chest was sent. She has been started on Keppra. Dr. Schwartz to evaluate patient. The patient currently has been started on clonidine patch. She has been started on Zosyn and vancomycin. Once patient is more alert, she will be started on her p.o. medication. Olivia Ferreira MD cc: [id number] TT: 02/12/2017 14:58:33 Confirmation # [id number] Dictation # [id number] en
--- NOTE | 2017-02-12 15:39 | CON ---
DATE: 02/12/2017 The patient is in room 376, bed 1. CHIEF COMPLAINT: Weakness times several days. HISTORY OF PRESENT ILLNESS: This is a 66-year-old female, known to me from a previous admission. 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 At that time in April the patient had pneumonia with an elevated glucagon level. T he patient is also with a history of left pyelonephritis, who was admitted on this admission on 017 with headaches, a brain mass and neutropenia. Now the patient's mental status is poor and infect ious disease consultation was requested. There has been no fevers reported, but she has become more tachycardic and lethargic and the concern for infection is raised. There has been no abdominal pain or diarrhea reported. No constipation or bright red blood per rectum. PAST MEDICAL HISTORY: Is significant for B-cell lymphoma stage IV with [employer] metastases, seizures, ast hma, cataract, left pyelo, anemia, PCP pneumonia in 04/2016, and coronary artery disease. PAST SURGICAL HISTORY: Is significant for a times 4. The patient recently 3 days ago had a Port-A-Cath placement in the right chest. ALLERGIES: The patient has no known allergies. MEDICATIONS: Are reviewed and include cefepime, Claritin and Decadron. PHYSICAL EXAMINATION: GENERAL: She is in bed with no acute distress; however, chronically ill and debilitated. VITAL SIGNS: Temperature of 99.4 and a heart rate of 128, respiratory rate of 20, blood pressure is 160/90. HEENT: Unremarkable. NECK: Supple. LUNGS: Have decreased breath sounds. HEART: Normal S1, S2. ABDOMEN: Soft, nontender, no organomegaly, no rebound, no guarding, no masses. LABORATORY EXAMINATION: Reveals the patient's white count of 13,100 , hemoglobin of 12, hematoc rit of 37 and 75% granulocytosis. The patient had chemistries that revealed a BUN of 21, creatinine of 0.8 and lactic acid is 10. Urinalysis is noted. Microbiology reveals the patient has had negativ e urine culture, negative blood cultures, and all the cultures from previous admissions are reviewed and they have been negative. Chest x-ray from today reveals no active disease. 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 1. Systemic inflammatory response syndrome. The patient is status post rapid response. Must rule o ut healthcare-associated right lower lobe aspiration pneumonia with elevated lactic acidosis and ther e is the gastrointestinal pathology. We will treat the patient with vancomycin, Zosyn and order bloo d cultures, urine culture, sputum culture, urinalysis, and procalcitonin. We will then consider repe at CAT scan. Overall prognosis is quite poor for this end-stage patient and will follow closely with you. Jose Suh MD cc: [phone] TT: 02/12/2017 15:38:28 Confirmation # [id number] Dictation # [id number] richard
--- NOTE | 2017-02-12 18:24 | CARD ---
APPROVED REPORT EKG Measurement Heart [id number] <Conclusion> Sinus tachycardia Minimal voltage criteria for LVH, may be normal variant Nonspecific T wave abnormality Abnormal ECG
[2017-02-12] MEDS: Piperacillin/Tazobact 3.375 gm 100 ML IVPB SCH ×2 (19:07→23:35)
[2017-02-12] MEDS: Apap-Butalbital-Caffeine 325-50-40mg Tab PO PRN (19:09)
--- NOTE | 2017-02-12 20:25 | PN ---
DATE: 02/12/2017 This is the patient's hospital visit. For Dr. Bynum. SUBJECTIVE: The patient is a 66-year-old female, seen lying awake, but somnolent and confused status post seizure earlier today, tonic-clonic activity, with followup with neurology requested. She is o therwise resting comfortably now, but sleepy but arousable. The patient is being seen for radiation treatments for small cell lymphocytic lymphoma, effective trigeminal nerve radiation completed, the p atient reported 2 days prior. The lymphocytic lymphoma has a mass effect on the brain with this poss ibly triggering her seizure activity. OBJECTIVE: PHYSICAL EXAMINATION: VITAL SIGNS: Temperature 99.4, pulse 106, respirations 20, blood pressure 140/100, pulse ox 95%. GENERAL: She appears lethargic, but arousable. HEENT: Oxygen is on. NECK: Supple. HEART: Tachy rate, regular rhythm. LUNGS: Clear. ABDOMEN: Soft. EXTREMITIES: No edema. SKIN: Warm, dry and clear. NEUROLOGIC: Again, somnolent but arousable. LABORATORY DATA: A chest x-ray was done earlier today. It was read as no active pulmonary disease. An EKG was done; it was not read. The patient's labs were done. White blood cell count of 13.1; hemoglobin 12.5; hematocrit 37.6; plat elet count of 226,000 with a chem metabolic panel showing a normal chem metabolic panel except for a lactic acid of 10.5 with a repeat of 1.5, potassium of 3.3, nonfasting glucose of 123, LDH of 849, ot herwise normal chem metabolic panel. ASSESSMENT: For this patient is that of new seizure activity, status post treatment radiation for st age IV small cell lymphocytic lymphoma with mass effect to the brain, right trigeminal nerve, history of right rotator cuff tear in her right shoulder, COPD, hypertension, seizure disorder, headache. PLAN: The patient is to continue present medical regimen with neurology consult requested to be repe ated. Her potassium was replenished with the patient to be monitored clinically. She does have a po rt for IV access with steroids, possibly contributing to her elevated white blood cell count. Antibi otics were begun by Dr. Suh with the patient to be monitored clinically and with labs. Progno sis for this patient is guarded. Raheel Aguilar CHAMBERLAIN cc: [phone] TT: 02/12/2017 20:24:06 Confirmation # [id number] Dictation # [id number] mn
--- NOTE | 2017-02-12 21:31 | PN ---
DATE: 02/12/2017 REFERRING PHYSICIAN: Dr. Butt. SUBJECTIVE: She is lying in the bed, sleepy, arousable, feels better. Decreased rhinitis and cough. No nausea, no vomiting, no diarrhea, no leg pain or leg swelling. OBJECTIVE: GENERAL: No acute distress. VITAL SIGNS: Temp is 99, heart rate is 105, respiratory rate is 20, blood pressure 140/92, pulse ox 100% on nasal cannula. HEENT: Moist mucous membranes. Crowded airway. Mallampati score is 4. NECK: Supple. No JVD. LUNGS: Have prolonged expiratory phase with few rhonchi. HEART: S1 and S2. ABDOMEN: Soft, nontender. No organomegaly. EXTREMITIES: There is no edema. NEUROLOGIC: Sleepy, arousable, follows simple command. MEDICATIONS: She is on hydralazine 25 mg 3 times a day, Claritin 10 mg daily, Decadron 4 mg IV q. 6 hours, IV fluid half normal saline 60 mL per hour, DuoNeb q. 6 hours, Fioricet 1 tab q. 4 hours p.r. n., potassium 20 mEq daily, Lipitor 10 mg daily, Lyrica 25 mg twice a day, Magic mouthwash a.c. and a t bedtime, Norvasc 10 mg daily, Protonix 20 mg daily, Robitussin-DM 10 mL per hour p.r.n., Singulair 10 mg daily, Tessalon Perles 100 mg 3 times a day, Tylenol on a p.r.n. basis, vancomycin 1 g q. 12 ho urs, Zestril 20 mg daily, Zofran on a p.r.n. basis, Zosyn 3.375 grams q. 6 hours. LABORATORY DATA: Shows hemoglobin 12.5, hematocrit 37.6, WBC 13.1, platelet count is 226. Sodium 13 9, potassium 2.3, chloride 99, bicarbonate 22, BUN 11, creatinine 0.8, glucose 135. Lactic acid 10.5 , which was repeated, and repeat one is 1.5. Calcium is 9.5. AST 38, ALT 22, LDH is 849. Troponin is 0.03. Procalcitonin 0.05. MICROBIOLOGY: Blood culture, urine culture and a nasal swab is unremarkable. Chest x-ray done today shows no infiltrate or effusion reported since yesterday. IMPRESSION AND PLAN: Lymphocytic lymphoma with brain involvement requiring radiation and chemotherap y, chronic obstructive lung disease, right upper extremity rotator cuff tear, hypertension, chronic c ough. We will continue p.r.n. inhaled bronchodilator. Keep head elevated at 45 degree. Continue Ly wei, Mucinex, Singulair, Tessalon Perles, and antihistamines. Fall precautions. Thank you and we will follow with you. Waylon Carmen MD cc: [phone] TT: 02/12/2017 21:31:00 Confirmation # [id number] Dictation # [id number] mn
[2017-02-12] MEDS ORDERED: levETIRAcetam 500 MG in Sodium Chloride 0.9% 100 ML IV SCH (22:00)
[2017-02-13] MEDS: Vancomycin 1gm in NS 250ml 250 ML IVPB SCH ×2 (02:26→14:00)
--- NOTE | 2017-02-13 02:56 | CON ---
DATE: 02/12/2017 HISTORY OF PRESENT ILLNESS: This is a 66-year-old black female with past medical history of stage IV B-cell lymphoma with metastasis to the brain, history of seizure, asthma. The patient was on Lamict al. 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 PAST SURGICAL HISTORY: 4 times, and Port-A-Cath placement. ALLERGIES: No known drug allergy. PHYSICAL EXAMINATION: Awake, drowsy and postictal, not following many commands, but follows simple v erbal commands at times. Spontaneous movement of the extremities noted. No facial asymmetry. Tongu e midline. Sensory appears intact. Cerebellar gait deferred. IMPRESSION: Seizure disorder, postictal, metastasis to the brain and workup is in progress. We will start Keppra 500 IV push every 12 hours. Further management and EEG will be done. Jonathan Schwartz MD cc: [id number] TT: 02/13/2017 02:55:16 Confirmation # [id number] Dictation # [id number] afbiola
[2017-02-13] MEDS: Dexamethasone 4 mg/1 ml IVP SCH ×3 (05:52→17:47)
[2017-02-13] MEDS: Piperacillin/Tazobact 3.375 gm 100 ML IVPB SCH ×4 (05:52→23:14)
[2017-02-13] MEDS: Apap-Butalbital-Caffeine 325-50-40mg Tab PO PRN ×2 (05:53→17:47)
[2017-02-13] MEDS: guaiFENesin DM 200 mg-20 mg/10 ml UD PO PRN (05:53)
[2017-02-13] MEDS: Albuterol-Ipratrop 3 mg / 0.5 (3 ml) UD IH PRN (06:10)
--- NOTE | 2017-02-13 09:49 | PN ---
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 The patient has a history of seizure disorder in the past . She had a recent history last night. She is now on IV Keppra to control her seizures. She had be en on some steroids, a tapering dose. She also had been running low-grade fevers with possible right lower lobe infiltrate. The patient has difficulty swallowing secondary to her TRANSPORTATION ENGINEER lesion. She is n .p.o. at this point for swallowing evaluation. VITAL SIGNS: Temperature is 99.7, heart rate is 105, blood pressure 140/92. White count is up to 13,100. She was seen in consultation by Dr. Suh. She is on full coverag e. Waiting for cultures and stool cultures, also for C. diff. The patient is coughing and complaini ng of a burning in her mouth and difficulty swallowing. PHYSICAL EXAMINATION: CHEST: Shows some rhonchi at both bases. HEART: Sinus tachycardia. GENERAL: The patient is awake and alert x 3. NEUROLOGIC: Grossly intact. PLAN: To continue IV antibiotics, blood cultures, stool for Clostridium difficile and IV Keppra for control of seizure disorder. Case was discussed with Dr. Bynum as far as timing and treatment of R ituxan. Alex Butt MD cc: [phone] TT: 02/13/2017 09:49:09 Confirmation # [id number] Dictation # [id number] en
[2017-02-13] MEDS: Potassium Chloride 20 mEq ER Tab PO SCH (10:40)
[2017-02-13] MEDS: Lidocaine 5% Patch TD SCH (10:40)
[2017-02-13] MEDS: Pantoprazole 20 mg EC Tab PO SCH (10:41)
--- NOTE | 2017-02-13 16:21 | CP.PCM.PN ---
Subjective - Date & Time of Evaluation Date of Evaluation: 02/13/17 Time of Evaluation: 10:35 - Subjective Subjective: Patient is comfortable in bed, not in distress, afebrile overnight, feeling better. Objective - Vital Signs/Intake and Output Vital Signs (last 24 hours): Temp Pulse Resp BP Pulse Ox 98.4 F 70 17 112/72 97 02/13/17 06:00 02/13/17 06:00 02/13/17 06:00 02/13/17 06:00 02/13/17 06:00 Intake and Output: 02/13/17 02/13/17 06:59 18:59 Intake Total 0 Output Total 900 Balance -900 - Medications Medications: Current Medications Acetaminophen (Tylenol 325mg Tab) 650 mg PO Q4H PRN PRN Reason: Fever >100.4 F Last Admin: 02/01/17 18:00 Dose: 650 mg Acetaminophen/Butalbital/Caffeine (Fioricet) 1 tab PO Q4H PRN PRN Reason: Headache Last Admin: 02/13/17 05:53 Dose: 1 tab Albuterol/Ipratropium (Duoneb 3 Mg/0.5 Mg (3 Ml) Ud) 3 ml IH [id number] PRN PRN Reason: Shortness of Breath Last Admin: 02/13/17 06:10 Dose: 3 ml Amlodipine Besylate (Norvasc) 10 mg PO DAILY [facility] Last Admin: 02/12/17 10:44 Dose: Not Given Atorvastatin Calcium (Lipitor) 10 mg PO DIN [facility] Last Admin: 02/12/17 19:05 Dose: 10 mg Benzonatate (Tessalon Perles) 100 mg PO TID [facility] Last Admin: 02/12/17 19:05 Dose: 100 mg Al Hydrox/Mg Hydrox/Simethicone 30 ml/Diphenhydramine HCl 75 mg/Lidocaine 30 ml 0 ml PO Q6H PRN PRN Reason: Mouth/Throat Pain Dexamethasone (Decadron Inj) 4 mg IVP Q6 [facility] Last Admin: 02/13/17 05:52 Dose: 4 mg Guaifenesin/Dextromethorphan (Robitussin Dm) 10 ml PO Q4H PRN PRN Reason: Cough Last Admin: 02/13/17 05:53 Dose: 10 ml Hydralazine HCl (Apresoline) 25 mg PO TID [facility] Last Admin: 02/12/17 19:05 Dose: 25 mg Dextrose/Sodium Chloride (Dextrose 5%/0.45% Ns 1000 Ml) 1,000 mls @ 60 mls/hr IV .[id number] [facility] Last Admin: 02/12/17 10:39 Dose: 60 mls/hr Piperacillin Sod/Tazobactam Sod (Zosyn 3.375 In Ns 100ml) 100 mls @ 200 mls/hr IVPB Q6 [facility] PRN Reason: Protocol Stop: 02/26/17 18:01 Last Admin: 02/13/17 05:52 Dose: 200 mls/hr Vancomycin HCl (Vancomycin 1gm) 250 mls @ 167 mls/hr IVPB Q12H [facility] PRN Reason: Protocol Stop: 02/21/17 13:46 Last Admin: 02/13/17 02:26 Dose: 167 mls/hr Levetiracetam (Keppra 500mg Ivpb) 100 mls @ 100 mls/hr IVPB Q12 [facility] Lamotrigine (Lamictal) 200 mg PO BID [facility] PRN Reason: Protocol Last Admin: 02/12/17 19:03 Dose: 200 mg Lidocaine (Lidoderm) 1 ea TD DAILY [facility] Lisinopril (Zestril) 20 mg PO DAILY [facility] Last Admin: 02/12/17 10:44 Dose: Not Given Loratadine (Claritin) 10 mg PO DAILY [facility] Last Admin: 02/12/17 10:44 Dose: Not Given Montelukast Sodium (Singulair) 10 mg PO HS [facility] Last Admin: 02/12/17 23:34 Dose: 10 mg Ondansetron HCl (Zofran Inj) 4 mg IVP Q6H [facility] Last Admin: 02/13/17 05:52 Dose: 4 mg Pantoprazole Sodium (Protonix Ec Tab) 20 mg PO 0730 [facility] Last Admin: 02/12/17 09:14 Dose: Not Given Potassium Chloride (K-Dur 20 Meq Er Tab) 20 meq PO BRK [facility] Last Admin: 02/12/17 09:14 Dose: Not Given Pregabalin (Lyrica) 25 mg PO BID [facility] Last Admin: 02/12/17 19:05 Dose: 25 mg - Labs Labs: 02/12/17 06:30 02/12/17 06:30 - Constitutional Appears: Non-toxic, No Acute Distress - Head Exam Head Exam: NORMAL INSPECTION - Respiratory Exam Respiratory Exam: Decreased Breath Sounds - Cardiovascular Exam Cardiovascular Exam: +S1, +S2 - GI/Abdominal Exam GI & Abdominal Exam: Soft. absent: Tenderness Assessment and Plan - Assessment and Plan (Free Text) Plan: Assessment Systemic Inflammatory Response Syndrome, R/O sepsis from healthcare-associated pneumonia history of ventilator-dependent respiratory failure; the sepsis is secondary to healthcare-associated pneumonia, with risk for fungal infection as well (i.e. Aspergillus) since she was recently neutropenic and possible Pneumocystis pneumonia since the beta glucan is elevated S/P neutropenia (now the patient has leukocytosis from Filgastrim and from sepsis - this is slowly improving) lymphoma asthma history of left pyelonephritis seizures cataracts asthma Plan continue Vancomycin and Zosyn pending sputum cx; blood cx are negative; if cx continue to be negative, we can change antibiotics to PO Doxycycline tomorrow for another 3-5 days since the PCT is <0.05
[2017-02-13] MEDS ORDERED: Potassium Chloride 10 mEq 100 ML IVPB SCH (18:45)
[2017-02-13 19:27] LABS: ALB/GLOB RATIO 1.4 (1.1-1.8); ALKALINE PHOSPHATASE 55 U/L (38-133); ALT/SGPT 37 U/L (7-56); AST/SGOT 34 U/L (15-39); BILIRUBIN,TOTAL 0.6 mg/dL (0.2-1.3); BLOOD UREA NITROGEN 18 mg/dL (7-21); CALCIUM 8.9 mg/dL (8.4-10.5); CARBON DIOXIDE 29 mmol/L (21-33); CHLORIDE 101 mmol/L (98-107); GFR AFRICAN-AMERICAN > 60; GLUCOSE,RANDOM 139 mg/dL (70-110); POTASSIUM 3.8 mmol/L (3.6-5.0); SODIUM 136 mmol/L (132-148); TOTAL PROTEIN 5.9 g/dL (5.8-8.3)
--- NOTE | 2017-02-13 19:59 | PN ---
DATE: 02/13/2017 CHIEF COMPLAINT: Follow up for seizures. SUBJECTIVE: The patient and has no further seizure-like activity. She is currently on Keppra IV 500 mg q. 12. In addition, she is on Lamictal 200 mg p.o. b.i.d. for seizure prophylaxis. She i s also on Lyrica for her burning sensation of her mouth, her extremities and her face. EEG showed so me diffuse paroxysmal activity in the frontoparietal area mostly on the left, which is consistent fro m her prior EEGs and which is indicated on seizures. 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 The patient's lymphocytic lymphoma has a mass effect on the brain which is possi fuad triggering her seizures at times along with radiation treatments. 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 SOCIAL HISTORY: No illicit drug use, smoking, or EtOH abuse. FAMILY HISTORY: Noncontributory. ALLERGIES: No known drug allergies. MEDICATIONS: Reviewed via nurse's reconciliation sheet. REVIEW OF SYSTEMS: A 14 point review of systems negative except as noted in the HPI. PHYSICAL EXAMINATION: VITAL SIGNS: Temperature 98.4, pulse rate 60, blood pressure 143/85, respiratory rate of 19, oxygen saturation 99% via room air. GENERAL: The patient is sitting up in bed in no acute distress. HEENT: Atraumatic, normocephalic. PERRLA. Extraocular muscles intact. LUNGS: Decreased breath sounds bilaterally. HEART: S1, S2, normal rate and rhythm. No murmurs, rubs, or gallops. ABDOMEN: Soft, nontender, nondistended. Bowel sounds present. EXTREMITIES: No clubbing, no cyanosis. Peripheral pulses 2+ felt bilaterally. Right upper extremit y is tender to touch. She is limited in movements. Had a right rotator cuff tear in the past. NEUROLOGIC: The patient is alert, oriented to person and place and follows simple commands. Speech is fluent without any errors. No aphasia noted. Cranial nerves II through XII are intact. MOTOR: Moves all extremities equally, but limited on the right upper extremity due to history of rig ht rotator cuff tear. SENSORY: Decreased light touch to pinprick up to the calves bilaterally due to decreased vibration i n the toes. DEEP TENDON REFLEXES: 1+ throughout. COORDINATION AND GAIT: Deferred. LABORATORY DATA: Sodium is 139, potassium 3.3, chloride of 99, carbon dioxide 22, BUN of 11, creatin ine 0.8. Random glucose 133. 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 At this amarjit e I recommend: 1. Continuing lamotrigine 200 mg p.o. b.i.d. and Keppra from 500 mg IV q. 12, which can eventually b e switched to p.o. 2. Continue with Lyrica 25 p.o. b.i.d. for neuropathic pain. 3. To follow with oncology in regards to her lymphocytic lymphoma. 4. Monitor her lung status with COPD. She is on DuoNebs and continue with current present medical m anagement. 5. Continue Fioricet for headaches 1 tab p.o. q. 4 hours and is on dexamethasone 4 mg IV q. 6. At th is time, continue with current present medical management. Will continue her on seizure meds on thes e doses. Thank you for this followup. Petar Schwartz MD cc: [phone] TT: 02/13/2017 19:59:40 Confirmation # [id number] Dictation # [id number] mn
[2017-02-13] MEDS: levETIRAcetam 500mg IVPB 100 ML IVPB SCH (21:07)
--- NOTE | 2017-02-13 21:26 | EEG ---
DATE: 02/13/2017 DIAGNOSIS: Seizures. MEDICATIONS: Reviewed, on Keppra and Lamictal. INTERPRETATION: This is a 16-channel international recording. The background activity was composed of 6-7 cycles per second. There was a small amount of beta activity 16-20 cycles per second seen in this tracing. There was increased amount of theta activity of 5-7 cycles per second seen in this tra cing. Drowsiness is characterized by mixed beta and theta activities. Sleep was characterized by ve rtex transient waves, sleep spindles and bilateral slowing. Photic stimulation showed no change in t he tracing. There was intermittent paroxysmal activity noticed in the frontoparietal areas, mostly o n the left indicating evolution of epileptogenic focus. CONCLUSION: This is an abnormal EEG due to presence of paroxysmal activity in the frontopariet al areas, mostly on the left than the right creating epileptogenic focus. Please clinically correlat e. Petar Schwartz MD cc: [phone] TT: 02/13/2017 21:26:01 Confirmation # [id number] Dictation # [id number] mn
--- NOTE | 2017-02-13 23:40 | PN ---
DATE: 02/13/2017 REFERRING PHYSICIAN: Dr. Bynum. SUBJECTIVE: She is lying in the bed, head at 45 degrees. Family and friends at bedside. Overall, f eels better, decreased rhinitis and cough, no nausea, no vomiting, no diarrhea. No leg pain or leg s welling. OBJECTIVE: GENERAL: No acute distress. VITAL SIGNS: Temp is 98, heart rate is 70, respiratory rate is 20, blood pressure 112/72, pulse ox 9 9% on nasal cannula. HEENT: Moist mucous membranes. Crowded airway. NECK: Supple, no JVD. LUNGS: Have scattered rhonchi. HEART: S1, S2. ABDOMEN: Soft, nontender. No organomegaly. EXTREMITIES: There is no edema. NEUROLOGIC: Awake, alert, follows simple commands. MEDICATIONS: She is on hydralazine 25 mg 3 times a day, Claritin 10 mg daily, Decadron 4 mg q. 12 ho urs is on tapered dose, IV fluid D5 half normal saline 60 mL per hour, DuoNeb q. 6 hours, Fioricet 1 tab q. 4 hours p.r.n., potassium 20 mEq daily, Keppra 500 mg q. 12 hours, Lamictal 200 mg twice a day , Lidoderm patch daily, Lipitor 10 mg daily, Lyrica 25 mg twice a day. She is on Magic solution for the mouth, Norvasc 10 mg daily, Protonix 40 mg daily, Robitussin-DM 10 mL q. 4 hours p.r.n., Singulai r 10 mg daily, Tessalon Perles 100 mg 3 times a day, vancomycin 1 gram IV q. 12 hours, Zestril 20 mg daily, Zofran on a p.r.n. basis, Zosyn 3.375 grams q. 6 hours. LABORATORY DATA: Shows hemoglobin 12.5, hematocrit 37.6, WBC 13.1, platelet is 226. Sodium 139, pot assium 3.3, chloride 99, bicarbonate 22, BUN 11, creatinine 0.8, glucose is 135. IMPRESSION AND PLAN: Lymphocytic lymphoma with brain involvement requiring radiation and chemotherap y, obstructive lung disease, right upper extremity rotator cuff tear, hypertension, chronic cough. S he feels better than yesterday, still has some rhinitis, postnasal drip and cough, but improved. Davis p head elevated at 45 degrees. Continue cough suppressant, , gastric prophylaxis, deep venous t hrombosis prophylaxis. Thank you and will follow with you. Waylon Carmen MD cc: [phone] TT: 02/13/2017 23:39:53 Confirmation # [id number] Dictation # [id number] mn
[2017-02-14] MEDS: Vancomycin 1gm in NS 250ml 250 ML IVPB SCH (01:01)
--- NOTE | 2017-02-14 02:19 | PN ---
DATE: 02/13/2017 The patient is in room 376. PROBLEMS: This is a 66-year-old female with a history of small-cell lymphocytic lymphoma, status pos t several cycles of Rituxan-based chemotherapy for stage IV disease diagnosed in 12/2015, went into c omplete remission after chemotherapy in 07/2016, was being monitored and then had progressive problems with difficulty in swallowing, recurrent aspirations, found to have, after ENT evaluation including an MRI of the head showing a new mass lesion in the alma extending into the Meckel's cave with result and findings and complaints of the patient having numbness in the distribution of the trigeminal on the right side, numbness to the right side of the tongue, right side of the face, and the right side of the jaw bone along with the recurrent aspirations. The patient was admitted to the hospital for f urther management. She was treated with IV steroids, started on an emergency radiation based on the MRI findings. The patient just completed radiation on Monday. During the hospital course, patient h as had several episodes of, what appeared to be, aspiration pneumonitis. She is on broad-spectrum an tibiotics and gradually improving. Numbness in the face on the right side of the cheek is also gradu ally improving. The patient's aspiration appears to be slightly improved, which she has been seen by the speech and swallowing pathologist and is on a modified diet at this time to help her overcome th is acute phase while on radiation. The patient also had issues with her right shoulder, which she co uld not raise arm. MR of the shoulder was consistent with tear of the rotator cuff, accumulati on of fluid in the right shoulder joint, which was aspirated and injected with steroids, and the arm is also gradually getting better. Subjectively, patient is comfortable in bed, apparently had a seiz ure because she had not received her Lamictal, which had fallen off the MAR as it was not renewed aut omatically. The patient is currently comfortable in bed after receiving IV anti-seizure medicines. She is not in any distress. She is afebrile, feeling better, coughing is also improved. PHYSICAL EXAMINATION: VITAL SIGNS: Stable. T-max is 98.4, pulse is 70, respirations 17, blood pressure is 112/72, pulse o x is 97% on room air. MEDICATIONS: Reviewed. She is on Tylenol p.r.n. She is on Fioricet 1 tab q. 4 h p.r.n. for headach es. She is on DuoNeb 3 mg/0.5 mg 3 mL inhaled q. 6 hours. She is on Norvasc 10 mg p.o. daily. Lipi tor 10 mg p.o. daily. Tessalon Perles 100 mg t.i.d. She is on Magic mouthwash swish and swallow q. 6 h p.r.n. She is on Decadron 4 mg IV q. 6 hours, which is going to be tapered to 4 mg q. 12 hours p .o. She is on Robitussin-DM 10 mL q. 4h p.r.n. for cough. Apresoline 25 mg t.i.d. for blood pressur e. She is on D5 half normal saline 60 mL an hour. She is on Zosyn 1 gram IV piggyback q. 6 hours. She is on vancomycin 1 gram IV q. 12 hours. She is on Keppra 500 IV piggyback q. 12 hours. She is o n Lamictal 200 mg p.o. b.i.d. She is on lidocaine patches topically to the affected area on the back 1 daily. She is on Zestril 20 mg p.o. daily. Claritin 10 mg p.o. daily. Singulair 10 mg p.o. at b edtime. Zofran 4 mg IV q. 6 h p.r.n. for nausea which was significant while on radiation, is improve d. She is on Protonix 20 mg p.o. daily. She is on K-Dur 20 mEq p.o. daily. She is on Lyrica 25 mg b.i.d. LABORATORY DATA: From today reveals a white count of 13.1, hemoglobin 12.5, hematocrit 37, platelet count 226,000. Sodium is 139, K is , chloride 99, CO2 of 22, BUN of 11, creatinine 0.8 and bloo d sugar of 135. PHYSICAL EXAMINATION: GENERAL: The patient is awake, alert, in no acute distress. HEENT: Head is normocephalic, atraumatic. Previously noted numbness in the distribution of the tri geminal nerve. Right side of the face is improved. On a scale of 0-10 if zero is how she was feelin g with the numbness, it is up to 8 now. LUNGS: Reveals decreased breath sounds posteriorly. CARDIOVASCULAR: Reveals S1 and S2 to be normal. No gallop or murmur is heard. ABDOMEN: Soft and nontender. No rebound, rigidity, or guarding is noted. EXTREMITIES: Reveals no cyanosis, clubbing, or edema. Right shoulder is better. She is able to soria se the arm after the tap and injection of steroids. ASSESSMENT NOTES AND PLAN: The patient has stage IV small-cell lymphocytic lymphoma completing radia tion. A systemic inflammatory response with sepsis secondary to health-acquired pneumonia secondary to aspiration. Status post neutropenia, which is slowly improving. Asthma. History of left pyelone phritis. Seizures. Cataracts. Plan is to continue the IV vancomycin and Zosyn pending sputum cult ures. Blood cultures to date are negative we can change the antibiotics to p.o. doxycycline fo r another 3-5 days since the procalcitonin was less than 0.05. We will plan to taper the IV Decadron to p.o. Decadron in preparation for possible discharge. Discussed in detail with the patient. I to ld her at this point in time, after she has completed the radiation, would like to wait for a week or so before initiation of outpatient chemotherapy. 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 The patient may need a repeat MRI in a few weeks, and we will also plan on doing a PET/CT scan to ascertain the extent of disease elsewhere in the body. Routine post exam instructions have been given to the patient. Britni Bynum MD cc: [phone] TT: 02/14/2017 00:57:56 Confirmation # [id number] Dictation # [id number] tn 02/14/2017 01:18:53
[2017-02-14] MEDS: Piperacillin/Tazobact 3.375 gm 100 ML IVPB SCH (05:23)
[2017-02-14 07:19] LABS: BLOOD UREA NITROGEN 15 mg/dL (7-21); CALCIUM 8.9 mg/dL (8.4-10.5); CARBON DIOXIDE 30 mmol/L (21-33); CHLORIDE 103 mmol/L (98-107); GFR AFRICAN-AMERICAN > 60; GLUCOSE,RANDOM 112 mg/dL (70-110); PHOSPHOROUS 2.7 mg/dL (2.5-4.5); POTASSIUM 3.6 mmol/L (3.6-5.0); SODIUM 138 mmol/L (132-148)
[2017-02-14 09:11] VITALS: TEMP 97.2
[2017-02-14] MEDS: Potassium Chloride 20 mEq ER Tab PO SCH (11:04)
[2017-02-14] MEDS: levETIRAcetam 500mg IVPB 100 ML IVPB SCH (11:05)
[2017-02-14] MEDS: Pantoprazole 20 mg EC Tab PO SCH (11:06)
[2017-02-14] MEDS: Lidocaine 5% Patch TD SCH (11:06)
--- NOTE | 2017-02-14 12:20 | PN ---
DATE: 02/14/2017 REASON FOR CONSULTATION AND FOLLOWUP: Sinus tachycardia, small cell lymphoma, metastasis to the brai n, hypertension, COPD. BRIEF CLINICAL HISTORY: A 66-year-old female who is known to have a past medical history of COPD, al so lymphocytic leukemia, on chemo; mets to the brain. The patient had a grand mal seizure on Monday, so is n.p.o. The patient is awake and alert. The patient also known to have right upper extremity rotator cuff tear. Was tachycardic, started on beta harman but COPD is getting worse, so was discon tinued by pulmonary. PHYSICAL EXAMINATION: As follows: VITAL SIGNS: Temperature afebrile, heart rate 65, blood pressure 139/81. HEENT: PERRLA, intact. NECK: Supple. No carotid bruits. No thyromegaly. CHEST: Clear to auscultation. HEART: S1, S2 regular. ABDOMEN: Soft. EXTREMITIES: Clubbing and cyanosis negative. BLOOD WORKUP: As follows: WBC ____, hemoglobin 12.5, hematocrit 37.6, platelet count 226. Chemistr y shows sodium 130, potassium 3.0, chloride of 103, carbon dioxide of 30, anion gap of 9, BUN 15, cre atinine 0.7. IMPRESSION: Status post grand mal seizure yesterday, lymphoma with metastasis to the brain, rotator cuff of right shoulder tear, stage IV metastatic lymphoma, sinus tachycardia, hypertension, chronic o bstructive pulmonary disease, n.p.o. for grand mal seizure. RECOMMENDATION: Start pureed diet. Continue hydralazine. Continue atorvastatin. Off beta harman because COPD gets worse. Continue lisinopril. We will follow with you. Thank you, Dr. Bynum, for providing us the opportunity in taking care of the patient. We will foll ow with you. Waylon Perez MD cc: [id number] TT: 02/14/2017 12:19:50 Confirmation # [id number] Dictation # [id number]
--- NOTE | 2017-02-14 14:18 | PN ---
DATE: 02/13/2017 The patient is in room 376, bed 1. REASON FOR CONSULTATION AND FOLLOWUP: Sinus tachycardia, small cell lymphoma metastatic to brain, hy pertension, COPD. HISTORY OF PRESENT ILLNESS: The patient is a 66-year-old female known to have COPD, and also had lym phocytic lymphoma status post chemotherapy in 2016, now admitted with brain metastasis. The patient found to have sinus tachycardia, and the patient's heart rate was controlled with propranolol. The p atient known to have hypertension, right upper extremity rotator cuff tear. The patient also had dys phagia and mild aphasia. The patient states that her cough is improving. Denies any chest pain or p alpitation. The patient, on examination: VITAL SIGNS: Blood pressure 143/85, respiration 19, pulse 110, temperature 98.4. Earlier heart rate was 65. HEAD: Normocephalic. EYES: Pupils normal. Conjunctivae normal. NECK: JVP low. Carotid equal. THORAX: AP diameter normal. LUNGS: No rales. CARDIOVASCULAR: S1, S2. ABDOMEN: Soft, nontender, no organomegaly. Bowel sounds normal. EXTREMITIES: No clubbing, no cyanosis. LABORATORIES: WBC 13.1, hemoglobin 12.5, hematocrit 37.6, platelets 206. Sodium 139, potassium 3.3, BUN 11, creatinine 0.8. AST, ALT normal, troponin 0.03. DIAGNOSES: Metastatic lymphoma stage IV, lymphocytic lymphoma with metastasis to the brain, sinus ta chycardia under control with propranolol, hypertension, chronic obstructive pulmonary disease, right upper extremity rotator cuff tear, dysphagia, mild dysphagia, seizure disorder, hypokalemia. PLAN: Will give K rider for low potassium and will continue dexamethasone 4 mg p.o. q. 12 hours star ting tomorrow. The patient had been receiving dexamethasone 4 mg IV q. 6 hours. She is on IV therap y atorvastatin 10 mg p.o. daily, 25 b.i.d., amlodipine 10 mg p.o. daily, lisinopril 20 mg daily , piperacillin/tazobactam /100 mL IV q. 6 hourly, clonidine 0.2 mg per 24 hour 1 patch, which wa s discontinued. lol has been stopped at present. Will give IV potassium therapy and will repeat labs in the morning. Will follow with you. Waylon Chawla MD cc: [id number] TT: 02/14/2017 09:01:21 Confirmation # [id number] Dictation # [id number] jn
--- NOTE | 2017-02-14 16:08 | CP.PCM.PN ---
Subjective - Date & Time of Evaluation Date of Evaluation: 02/14/17 Time of Evaluation: 15:00 - Subjective Subjective: [id number]: [id number] : 1950 Loc: [facility] Room/Bed: [facility] Age/Sex: 66 / F ADM Status: ADM IN ADM Date: DIS Date: Progress note: DATE: 02/14/2017 CHIEF COMPLAINT: Follow up for seizures. SUBJECTIVE: The patient has no further seizure-like activity. She is currently on Keppra IV 500 mg q. 12. which can be switched to po. In addition , she is on Lamictal 200 mg p.o. b.i.d. for seizure prophylaxis. She is also on Lyrica for her burning sensation of her mouth, her extremities and her face. EEG showed some diffuse paroxysmal activity in the frontoparietal area mostly on the left, which is consistent from her prior EEGs and which is indicated on seizures. 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 SOCIAL HISTORY: No illicit drug use, smoking, or EtOH abuse. FAMILY HISTORY: Noncontributory. ALLERGIES: No known drug allergies. MEDICATIONS: Reviewed via nurse's reconciliation sheet. REVIEW OF SYSTEMS: A 14 point review of systems negative except as noted in the HPI. PHYSICAL EXAMINATION: VITAL SIGNS: Reviewed. GENERAL: The patient is sitting up in bed in no acute distress. HEENT: Atraumatic, normocephalic. PERRLA. Extraocular muscles intact. LUNGS: Decreased breath sounds bilaterally. HEART: S1, S2, normal rate and rhythm. No murmurs, rubs, or gallops. ABDOMEN: Soft, nontender, nondistended. Bowel sounds present. EXTREMITIES: No clubbing, no cyanosis. Peripheral pulses 2+ felt bilaterally. Right upper extremity is tender to touch. She is limited in movements. Had a right rotator cuff tear in the past. NEUROLOGIC: The patient is alert, oriented to person and place and follows simple commands. Speech is fluent without any errors. No aphasia noted. Cranial nerves II through XII are intact. MOTOR: Moves all extremities equally, but limited on the right upper extremity due to history of right rotator cuff tear. SENSORY: Decreased light touch to pinprick up to the calves bilaterally due to decreased vibration in the toes. DEEP TENDON REFLEXES: 1+ throughout. COORDINATION AND GAIT: Deferred. LABORATORY DATA: Reviewed. 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 At this time I recommend: 1. Continuing lamotrigine 200 mg p.o. b.i.d. and Keppra from 500 mg po bid for seizure prophylaxis. 2. Continue with Lyrica 25 p.o. b.i.d. for neuropathic pain. 3. To follow with oncology in regards to her lymphocytic lymphoma. 4. Monitor her lung status with COPD. She is on DuoNebs and continue with current present medical management. 5. Continue Fioricet for headaches 1 tab p.o. q. 4 hours and is on dexamethasone 4 mg IV q. 6. At this time, continue with current present medical management. Will continue her on seizure meds on these doses and see as outpatient. Please reconsult as necessary. Thank you for this followup. Petar Schwartz MD Objective - Vital Signs/Intake and Output Vital Signs (last 24 hours): Temp Pulse Resp BP Pulse Ox 97.2 F L 65 17 139/81 96 02/14/17 06:00 02/14/17 11:01 02/14/17 06:00 02/14/17 11:01 02/14/17 06:00 Intake and Output: 02/14/17 02/14/17 06:59 18:59 Intake Total 1050 Output Total 1 Balance 1049 - Medications Medications: Current Medications Acetaminophen (Tylenol 325mg Tab) 650 mg PO Q4H PRN PRN Reason: Fever >100.4 F Last Admin: 02/01/17 18:00 Dose: 650 mg Acetaminophen/Butalbital/Caffeine (Fioricet) 1 tab PO Q4H PRN PRN Reason: Headache Last Admin: 02/13/17 17:47 Dose: 1 tab Albuterol/Ipratropium (Duoneb 3 Mg/0.5 Mg (3 Ml) Ud) 3 ml IH [id number] PRN PRN Reason: Shortness of Breath Last Admin: 02/13/17 06:10 Dose: 3 ml Amlodipine Besylate (Norvasc) 10 mg PO DAILY [facility] Last Admin: 02/14/17 11:06 Dose: 10 mg Atorvastatin Calcium (Lipitor) 10 mg PO DIN [facility] Last Admin: 02/13/17 17:48 Dose: 10 mg Benzonatate (Tessalon Perles) 100 mg PO TID [facility] Last Admin: 02/14/17 11:07 Dose: 100 mg Al Hydrox/Mg Hydrox/Simethicone 30 ml/Diphenhydramine HCl 75 mg/Lidocaine 30 ml 0 ml PO Q6H PRN PRN Reason: Mouth/Throat Pain Dexamethasone (Decadron) 4 mg PO Q12 [facility] Last Admin: 02/14/17 11:03 Dose: 4 mg Doxycycline Hyclate (Doryx) 100 mg PO Q12 [facility] PRN Reason: Protocol Last Admin: 02/14/17 11:03 Dose: 100 mg Guaifenesin/Dextromethorphan (Robitussin Dm) 10 ml PO Q4H PRN PRN Reason: Cough Last Admin: 02/13/17 05:53 Dose: 10 ml Hydralazine HCl (Apresoline) 25 mg PO TID [facility] Last Admin: 02/14/17 11:01 Dose: 25 mg Dextrose/Sodium Chloride (Dextrose 5%/0.45% Ns 1000 Ml) 1,000 mls @ 60 mls/hr IV .[id number] [facility] Last Admin: 02/12/17 10:39 Dose: 60 mls/hr Levetiracetam (Keppra 500mg Ivpb) 100 mls @ 100 mls/hr IVPB Q12 [facility] Last Admin: 02/14/17 11:05 Dose: 100 mls/hr Lamotrigine (Lamictal) 200 mg PO BID [facility] PRN Reason: Protocol Last Admin: 02/14/17 11:05 Dose: 200 mg Lidocaine (Lidoderm) 1 ea TD DAILY [facility] Last Admin: 02/14/17 11:06 Dose: 1 ea Lisinopril (Zestril) 20 mg PO DAILY [facility] Last Admin: 02/14/17 11:09 Dose: 20 mg Loratadine (Claritin) 10 mg PO DAILY [facility] Last Admin: 02/14/17 11:02 Dose: 10 mg Montelukast Sodium (Singulair) 10 mg PO HS [facility] Last Admin: 02/13/17 21:07 Dose: 10 mg Ondansetron HCl (Zofran Inj) 4 mg IVP Q6H [facility] Last Admin: 02/14/17 06:28 Dose: Not Given Pantoprazole Sodium (Protonix Ec Tab) 20 mg PO 0730 [facility] Last Admin: 02/14/17 11:06 Dose: 20 mg Potassium Chloride (K-Dur 20 Meq Er Tab) 20 meq PO BRK [facility] Last Admin: 02/14/17 11:04 Dose: 20 meq Pregabalin (Lyrica) 25 mg PO BID [facility] Last Admin: 02/14/17 11:06 Dose: 25 mg - Labs Labs: 02/12/17 06:30 02/14/17 06:45
--- NOTE | 2017-02-14 16:15 | CP.PCM.PN ---
Subjective - Date & Time of Evaluation Date of Evaluation: 02/14/17 Time of Evaluation: 09:30 - Subjective Subjective: No fevers overnight, not in distress. Objective - Vital Signs/Intake and Output Vital Signs (last 24 hours): Temp Pulse Resp BP Pulse Ox 97.2 F L 65 17 139/81 96 02/14/17 06:00 02/14/17 11:01 02/14/17 06:00 02/14/17 11:01 02/14/17 06:00 Intake and Output: 02/14/17 02/14/17 06:59 18:59 Intake Total 1050 Output Total 1 Balance 1049 - Medications Medications: Current Medications Acetaminophen (Tylenol 325mg Tab) 650 mg PO Q4H PRN PRN Reason: Fever >100.4 F Last Admin: 02/01/17 18:00 Dose: 650 mg Acetaminophen/Butalbital/Caffeine (Fioricet) 1 tab PO Q4H PRN PRN Reason: Headache Last Admin: 02/13/17 17:47 Dose: 1 tab Albuterol/Ipratropium (Duoneb 3 Mg/0.5 Mg (3 Ml) Ud) 3 ml IH [id number] PRN PRN Reason: Shortness of Breath Last Admin: 02/13/17 06:10 Dose: 3 ml Amlodipine Besylate (Norvasc) 10 mg PO DAILY [facility] Last Admin: 02/14/17 11:06 Dose: 10 mg Atorvastatin Calcium (Lipitor) 10 mg PO DIN [facility] Last Admin: 02/13/17 17:48 Dose: 10 mg Benzonatate (Tessalon Perles) 100 mg PO TID [facility] Last Admin: 02/14/17 11:07 Dose: 100 mg Al Hydrox/Mg Hydrox/Simethicone 30 ml/Diphenhydramine HCl 75 mg/Lidocaine 30 ml 0 ml PO Q6H PRN PRN Reason: Mouth/Throat Pain Dexamethasone (Decadron) 4 mg PO Q12 [facility] Last Admin: 02/14/17 11:03 Dose: 4 mg Doxycycline Hyclate (Doryx) 100 mg PO Q12 [facility] PRN Reason: Protocol Last Admin: 02/14/17 11:03 Dose: 100 mg Guaifenesin/Dextromethorphan (Robitussin Dm) 10 ml PO Q4H PRN PRN Reason: Cough Last Admin: 02/13/17 05:53 Dose: 10 ml Hydralazine HCl (Apresoline) 25 mg PO TID [facility] Last Admin: 02/14/17 11:01 Dose: 25 mg Dextrose/Sodium Chloride (Dextrose 5%/0.45% Ns 1000 Ml) 1,000 mls @ 60 mls/hr IV .[id number] [facility] Last Admin: 02/12/17 10:39 Dose: 60 mls/hr Levetiracetam (Keppra 500mg Ivpb) 100 mls @ 100 mls/hr IVPB Q12 [facility] Last Admin: 02/14/17 11:05 Dose: 100 mls/hr Lamotrigine (Lamictal) 200 mg PO BID [facility] PRN Reason: Protocol Last Admin: 02/14/17 11:05 Dose: 200 mg Lidocaine (Lidoderm) 1 ea TD DAILY [facility] Last Admin: 02/14/17 11:06 Dose: 1 ea Lisinopril (Zestril) 20 mg PO DAILY [facility] Last Admin: 02/14/17 11:09 Dose: 20 mg Loratadine (Claritin) 10 mg PO DAILY [facility] Last Admin: 02/14/17 11:02 Dose: 10 mg Montelukast Sodium (Singulair) 10 mg PO HS [facility] Last Admin: 02/13/17 21:07 Dose: 10 mg Ondansetron HCl (Zofran Inj) 4 mg IVP Q6H [facility] Last Admin: 02/14/17 06:28 Dose: Not Given Pantoprazole Sodium (Protonix Ec Tab) 20 mg PO 0730 [facility] Last Admin: 02/14/17 11:06 Dose: 20 mg Potassium Chloride (K-Dur 20 Meq Er Tab) 20 meq PO BRK [facility] Last Admin: 02/14/17 11:04 Dose: 20 meq Pregabalin (Lyrica) 25 mg PO BID [facility] Last Admin: 02/14/17 11:06 Dose: 25 mg - Labs Labs: 02/12/17 06:30 02/14/17 06:45 - Constitutional Appears: Non-toxic, No Acute Distress - Head Exam Head Exam: NORMAL INSPECTION - ENT Exam ENT Exam: Mucous Membranes Moist - Neck Exam Neck Exam: absent: Lymphadenopathy, Meningismus - Respiratory Exam Respiratory Exam: Decreased Breath Sounds - Cardiovascular Exam Cardiovascular Exam: +S1, +S2 - GI/Abdominal Exam GI & Abdominal Exam: Soft. absent: Tenderness Assessment and Plan - Assessment and Plan (Free Text) Plan: Assessment Systemic Inflammatory Response Syndrome, consider sepsis from atypical healthcare-associated pneumonia history of ventilator-dependent respiratory failure; the sepsis is secondary to healthcare-associated pneumonia, with risk for fungal infection as well (i.e. Aspergillus) since she was recently neutropenic and possible Pneumocystis pneumonia since the beta glucan is elevated S/P neutropenia (now the patient has leukocytosis from Filgastrim and from sepsis - this is slowly improving) lymphoma asthma history of left pyelonephritis seizures cataracts asthma Plan cultures have been negative; we can change antibiotics to PO Doxycycline for another 3-5 days since the PCT is <0.05 will follow clnically while the patient is in the hospital
[2017-02-14 17:36] VITALS: RESP 18; O2SAT 97
[2017-02-14 18:04] VITALS: BP 140/72; PULSE 80
--- NOTE | 2017-02-14 19:25 | PN ---
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 The patient has completed her course of radiation therapy. She did have a seizure in the last 48 yariel rs but had an increase in the dose Lamictal to cover her seizures. She is more awake and alert. Her vital signs are stable. She is off intravenous antibiotics and on p.o. antibiotics. Her blood cult ures have been negative. VITAL SIGNS: Her fever is afebrile today. Her vital signs are stable. Her blood pressure is 152/95 . Her pulse is down to 67. Her temperature is 97.2. PLAN: The plan is to most likely discharge the patient home. Continue with a small dose of predniso ne. Continue on doxycycline and her seizure medications and to follow up as an outpatient. A 12-point review of systems was unremarkable. There is less shortness of breath, there is less coug h, there is less difficulty swallowing and there is less headache. The patient's right upper extremi ty has improved in strength. Alex Butt MD cc: [id number] TT: 02/14/2017 19:24:53 Confirmation # [id number] Dictation # [id number] richard
--- NOTE | 2017-02-14 21:57 | PN ---
DATE: 02/14/2017 REFERRING PHYSICIAN: Dr. Bynum. SUBJECTIVE: She is sitting side of the bed, feels much better, decreased rhinitis, decreased cough. No nausea, no vomiting, no diarrhea. No leg pain or leg swelling. OBJECTIVE: GENERAL: No acute distress. VITAL SIGNS: Temp is 98, heart rate is 67, respiratory rate is 20, blood pressure 140/72, pulse ox 9 7% nasal cannula. HEENT: Moist mucous membranes. Crowded airway. NECK: Supple. No JVD. LUNGS: Has a fair airflow with few rhonchi. HEART: S1, S2. ABDOMEN: Soft, nontender. No organomegaly. EXTREMITIES: There is no edema. NEUROLOGIC: Awake, alert, follows simple commands. MEDICATIONS: Reviewed. No new changes in medication reported. LABORATORY DATA: Reviewed and noted sodium 138, potassium 3.6, chloride 103, bicarbonate is 30, BUN 15, creatinine 0.7, glucose is 112, calcium is 8.9, phosphorus 2.7, magnesium is 2.0. IMPRESSION AND PLAN: Lymphocytic lymphoma with brain involvement, requiring radiation, on chemothera py; obstructive lung disease; right upper extremity rotator cuff tear; hypertension; chronic cough. I spoke to the patient's at bedside. All the questions were answered. The patient is being discharged home today. Will need outpatient PFT. Continue p.o. and inhaled bronchodilators, taper d ose of steroids as per oncology. Gastric prophylaxis. Deep venous thrombosis prophylaxis. Fall pre caution. Outpatient oncology followup. Thank you and will follow with you. Waylon Carmen MD cc: [id number] TT: 02/14/2017 21:57:03 Confirmation # [id number] Dictation # [id number] mn
--- NOTE | 2017-02-15 08:12 | PN ---
DATE: 02/14/2017 The patient is in room 376, bed 1. The patient is being discharged today. SUBJECTIVE: The patient is sitting at the side of the bed. Feels much better. Decreased rhinitis, decreased cough. No nausea, no vomiting, no leg pain or leg swelling. The numbness and tingling sania t she had on the right side of the face is improved significantly. The sensation of taste and feelin g on the top of the tongue is also appearing to come back. The patient completed radiation on Monday . Swallowing is a little bit better; still has to watch what she takes, but she has been maintaining herself on supplements of Ensure and Sustacal. She has lost a lot of weight over the last 2 months. OBJECTIVELY: The patient's vital signs are stable. T-max is 98.4, heart rate is 67, respirations 20, blood pressu re is 140/72, pulse ox is 97% on nasal cannula. HEAD: Normocephalic, atraumatic. Conjunctivae pale, sclerae are anicteric. Pupils are equally reac tive to light and accommodation. Examination of oropharynx reveals no oropharyngeal lesions. Tongue is moist. NECK: Supple. There is no adenopathy. No jugular venous distention noted. LUNGS: Scattered wheezes are heard. EXAMINATION OF THE HEART: Reveals S1 and S2 to be normal. No gallop or murmur is heard. ABDOMEN: Soft, nontender. Liver and spleen not palpable. No rebound, rigidity, or guarding is note d. EXTREMITIES: Reveals no cyanosis, clubbing, or edema. NEUROLOGIC EXAMINATION: Reveals higher functions to be normal. No focal deficits are noted except f or the tingling and numbness in the distribution of on the right side, which is improving. Rig ht shoulder where she had the cartilage is status post tapping of the joint, followed by intraa rticular injection; is significantly improved. She will have to work on therapy for the right should er. MEDICATIONS: Reviewed. No new changes have been reported. LABORATORY DATA: Reviewed. Sodium is 138, K is 3.6, chloride 103, bicarbonate 30, BUN is 15, creati nine 0.7, glucose is 112, calcium is 8.9, phosphorus of 2.7, magnesium of 2. ASSESSMENT NOTES AND PLAN: The patient has stage IV small cell lymphocytic lymphoma with involvement of the alma extending into the Meckel's cave status post radiation therapy, status post insertion of an intravenous port; right upper extremity torn rotator cuff, status post tapping and placement of i ntra-articular steroids, hypertension, chronic aspiration and chronic cough. The patient will contin ue p.o. and inhaled bronchodilators, taper steroids gradually as outlined in my yesterday's dictation . The patient also needs gastric prophylaxis. The patient will be seeing us in the office as an out patient where we will make a decision about outpatient chemotherapy. PLAN: To try to get the patient when she is fully recovered from the effects of radiation. Will do a PET/CT scan and then start the patient on Rituxan and bendamustine for a few cycles. Routine post-exam instructions have been given to the patient. Thanking you for allowing me to participate in the management of this patient. Very truly yours, Britni Bynum MD cc: [id number] TT: 02/14/2017 23:22:32 Confirmation # [id number] Dictation # [id number] omayra
--- NOTE | 2017-02-15 08:45 | DS ---
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 The patient was seen in consultation by Dr. Coleman, she started radiation therapy; Dr. yBnum for h ematology/oncology, who started Rituxan. The patient also was seen in consultation by Dr. Efren morse of her seizure disorder or any seizure while in the hospital, and also by infectious disease babatunde morse of elevated fever. The patient was treated because of radiation therapy. She also was found to have a rotator cuff tear in the right shoulder. She had improvement in her neurological function an d the right upper extremity after a course of the steroids and radiation therapy. She was treated wi th IV antibiotics prophylactically because of fever and an episode of neutropenia while in the hospit al. The patient's neutropenia resolved; fever and chills resolved. She was also found to have a pos sible right lower lobe infiltrate secondary to aspiration. She was treated with a thickened diet, an d also complained of episodes of burning in her mouth, consistent with mucositis, which was treated w [facility] lidocaine and Mycelex. The patient eventually complete her course of radiation therapy. Her whi te count recovered. She became afebrile. She was more alert and oriented x3. Her right upper extre mity improved in strength. She did have a right shoulder cortisone shot because of her severe rotato r cuff injury. She will be discharged home on a small dose of prednisone and a followup course of doxycycline for 3 or 4 more days, and follow up physical therapy and occupational therapy, and steroids for her CALIBRATION TECHNICIAN lym phoma, and she will be also followed as an outpatient with Dr. Bynum. 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 Alex Butt MD cc: [id number] TT: 02/15/2017 08:44:58 omayra
== END 2017-02-14 19:53 | disposition home or self-care (01) | DRG 840 ==
LOC: ED 15:33 → ERH 18:03 → 3RNO 19:54 → OBSVTOIN 01-26 11:23 → CCU 01-26 18:36 → 2RNO 01-28 14:09 → 3RSO 01-31 06:58
PROVIDERS: ADMIT Internal Medicine; ATTEND Internal Medicine
PROC: 0CJS8ZZ Inspection of Larynx, Via Natural or Artificial Opening Endoscopic (ICD-10-PCS; 2017-01-29)
PROC: 0R9J3ZZ Drainage of Right Shoulder Joint, Percutaneous Approach (ICD-10-PCS; 2017-02-04)
PROC: 3E0U33Z Introduction of Anti-inflammatory into Joints, Percutaneous Approach (ICD-10-PCS; 2017-02-04)
PROC: 3E0U3BZ Introduction of Anesthetic Agent into Joints, Percutaneous Approach (ICD-10-PCS; 2017-02-04)
PROC: D0001ZZ Beam Radiation of Brain using Photons 1 - 10 MeV (ICD-10-PCS; principal; 2017-02-06)
PROC: 05HM33Z Insertion of Infusion Device into Right Internal Jugular Vein, Percutaneous Approach (ICD-10-PCS; 2017-02-09)
PROC: B543ZZA Ultrasonography of Right Jugular Veins, Guidance (ICD-10-PCS; 2017-02-09)
PROC: B5131ZA Fluoroscopy of Right Jugular Veins using Low Osmolar Contrast, Guidance (ICD-10-PCS; 2017-02-09)
DX: C83.09 Small cell B-cell lymphoma, extranodal and solid organ sites (principal); A41.9 Sepsis, unspecified organism; J69.0 Pneumonitis due to inhalation of food and vomit; D61.818 Other pancytopenia; R64 Cachexia; D70.9 Neutropenia, unspecified; C79.31 Secondary malignant neoplasm of brain; G81.91 Hemiplegia, unspecified affecting right dominant side; J44.1 Chronic obstructive pulmonary disease with (acute) exacerbation; R47.01 Aphasia; I27.2 Other secondary pulmonary hypertension; J38.01 Paralysis of vocal cords and larynx, unilateral; I08.3 Combined rheumatic disorders of mitral, aortic and tricuspid valves; R13.10 Dysphagia, unspecified; I10 Essential (primary) hypertension; G40.909 Epilepsy, unspecified, not intractable, without status epilepticus; M65.811 Other synovitis and tenosynovitis, right shoulder; M75.101 Unspecified rotator cuff tear or rupture of right shoulder, not specified as traumatic; M12.811 Other specific arthropathies, not elsewhere classified, right shoulder; M19.011 Primary osteoarthritis, right shoulder; J45.909 Unspecified asthma, uncomplicated; E87.6 Hypokalemia; R49.0 Dysphonia; E83.39 Other disorders of phosphorus metabolism; G47.30 Sleep apnea, unspecified; H26.9 Unspecified cataract; Z79.82 Long term (current) use of aspirin; Z87.891 Personal history of nicotine dependence; Z68.22 Body mass index [BMI] 22.0-22.9, adult

== ENCOUNTER 2017-02-17 02:04 | Observation (INO) | payer MEDICARE, OTHER ==
[2017-02-17 02:16] VITALS: BMI 21.8
--- NOTE | 2017-02-17 02:27 | ED PDOC ---
Arrival/HPI - General Chief Complaint: Seizure Time Seen by Provider: 02/17/17 02:19 Historian: Patient - History of Present Illness Narrative History of Present Illness (Text): 02/17/17 02:21 Kelsie Barlow is a 66 year old female, whose past medical history includes hypertension, COPD, asthma, anemia, brain CA and seizure disorders, presents to the emergency department s/p witnessed tonic-clonic seizure episode prior to arrival. Per EMS, symptoms are similar to pervious seizure episodes. History limited due to acuity of condition. PMD:. Time/Duration: 1/2 hour Symptom Onset: Sudden Symptom Course: Unchanged Severity Level: Moderate Activities at Onset: Light Context: Home Past Medical History - Provider Review Nursing Documentation Reviewed: Yes - Infectious Disease Hx of Infectious Diseases: None - Reproductive Menopause: Yes - Cardiac Hx Cardiac Disorders: Yes Hx Hypertension: Yes - Pulmonary Hx Chronic Obstructive Pulmonary Disease (COPD): No Hx Pneumonia: No - Neurological HX Cerebrovascular Accident: No - HEENT Hx HEENT Disorder: Yes Hx Cataracts: Yes (bilateral) - Renal Hx Renal Failure: No - Endocrine/Metabolic Hx Diabetes Mellitus Type 1: No Hx Diabetes Mellitus Type 2: No Hx Hypothyroidism: No - Hematological/Oncological Hx Cancer: Yes (lymphoma, has radiation treatment) - Integumentary Hx Dermatological Disorder: No - Musculoskeletal/Rheumatological Hx Arthritis: No Hx Rheumatoid Arthritis: No - Gastrointestinal Hx Gastroesophageal Reflux: Yes - Genitourinary/Gynecological Hx Genitourinary Disorders: Yes Hx Incontinence: Yes - Psychiatric Hx Psychophysiologic Disorder: Yes Hx Anxiety: Yes Hx Substance Use: No - Surgical History Hx Section: Yes - Anesthesia Hx Anesthesia: Yes Hx Anesthesia Reactions: No Hx Malignant Hyperthermia: No - Suicidal Assessment Feels Threatened In Home Enviroment: No Family/Social History - Physician Review Nursing Documentation Reviewed: Yes Family/Social History: No Known Family HX Smoking Status: Former Smoker Hx Alcohol Use: No Hx Substance Use: No Hx Substance Use Treatment: No Allergies/Home Meds Allergies/Adverse Reactions: Allergies No Known Allergies Allergy (Verified 12/18/16 14:32) Home Medications: Home Meds Medication Instructions Recorded Confirmed Aspirin [Ecotrin] 81 mg PO DAILY 09/24/16 01/25/17 Folic Acid 1 mg PO DAILY 09/24/16 01/25/17 Lamotrigine [Lamictal] 200 mg PO BID 10/18/16 02/17/17 Famotidine [Pepcid] 20 mg PO DAILY 10/22/16 02/17/17 Prednisone 20 mg PO DAILY 10/22/16 02/17/17 Valsartan/Hydrochlorothiazide 1 tab PO DAILY 12/18/16 01/25/17 [Valsartan-Hctz 320-25 mg Tab] Vit A/Vit C/Vit E/Zinc/Copper 1 tab PO BID 12/18/16 01/25/17 [Preservision Areds Tablet] amLODIPine [Norvasc] 10 mg PO DAILY 12/18/16 02/17/17 Atorvastatin [Lipitor] 1 tab PO HS 02/17/17 02/17/17 Lisinopril [Zestril] 20 mg PO DAILY 02/17/17 02/17/17 Montelukast [Singulair] 1 tab PO DAILY 02/17/17 02/17/17 Pregabalin [Lyrica] 1 cap PO BID 02/17/17 02/17/17 Review of Systems - Review of Systems Systems not reviewed;Unavailable: Acuity of Condition Neurological: Seizure Physical Exam - Physical Exam Physical Exam Limitations: Clinical Condition Vital Signs Reviewed: Yes Vital Signs Pulse Resp BP Pulse Ox 02/17/17 05:43 92 H 18 133/82 97 02/17/17 04:37 108 H 18 129/91 H 99 02/17/17 03:37 127 H 25 H 119/79 96 02/17/17 02:20 134 H 02/17/17 02:05 168 H 26 H 150/92 H 100 Temperature: Afebrile Blood Pressure: Normal Pulse: Tachycardic Respiratory Rate: Normal Appearance: Positive for: Non-Toxic Pain Distress: None Mental Status: Positive for: other (nonresponsive to verbal stimuli ) Finger Stick Blood Glucose: 224 - Systems Exam Head: Present: Atraumatic, Normocephalic Pupils: Present: PERRL Conjunctiva: Present: Normal Respiratory/Chest: Present: Clear to Auscultation, Good Air Exchange. No: Respiratory Distress, Accessory Muscle Use Cardiovascular: Present: Tachycardic Neurological: Present: Other (Unresponsive to verbal stimuli. Right arm twitching. ) Medical Decision Making ED Course and Treatment: 02/17/17 02:33 Impression: A 66 year old female who presents to the emergency department s/p witnessed seizure episode prior to arrival. Plan: -- CT Head -- EKG -- Labs -- Chest X-ray -- Lamotrigine -- Urine culture -- Urinalysis -- Reassess and disposition Progress Notes: 02/17/17 02:34 EKG interpreted by me: Sinus Tachy @ [address] depressions noted in V5,V6, II, III, aVF new from previous, perhaps rate related. 02/17/17 03:13 Chest X-ray interpreted by me: No consolidation or infiltrates. 02/17/17 03:40 EXAM: CT Head Without Intravenous Contrast IMPRESSION: Nonspecific white matter changes. Patient's called later and notified us that patient with seizure disorder and recently diagnosed with brain tumor which they were told shrunk after radiation treatments. Patient began having sudden seizure today, tonic clonic, which was longer than usual. Patient was monitored in ER, vital signs returned to normal, and patient becoming more alert slowly, still very drowsy, likely due to combination of ativan and postical period. Dr. 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 Butt's service. - Lab Interpretations Lab Results: 02/17/17 02:16 02/17/17 02:16 Lab Results 02/17/17 02:43: Urine Color Straw, Urine Appearance Cloudy, Urine pH 7.5, Ur Specific Flippin >= 1.030, Urine Protein 100 H, Urine Glucose (UA) 250 H, Urine Ketones Negative, Urine Blood Trace-intact H, Urine Nitrate Negative, Urine Bilirubin Negative, Urine Urobilinogen 0.2, Ur Leukocyte Esterase Negative, Urine RBC 0 - 2, Urine WBC 0 - 2, Ur Epithelial Cells 4 - 5, Urine Bacteria Mod , Urine Other Mucus 02/17/17 02:16: WBC 8.9 D, RBC 4.41, Hgb 13.8, Hct 40.9, MCV 92.7, MCH 31.3, MCHC 33.7, RDW 14.9 H, Plt Count 171, MPV 9.2, Gran % 70.2 H, Lymph % (Auto) 17.9 L, [place] % (Auto) 11.1 H, Eos % (Auto) 0.7 L, Baso % (Auto) 0.1, Gran # 6.25 , Lymph # 1.6, [place] # 1.0 H, Eos # 0.1, Baso # 0.01, PT 10.7, INR 0.99, APTT 21.6 L, Sodium 137, Potassium 3.9, Chloride 94 L, Carbon Dioxide 30, Anion Gap 17, BUN 16, Creatinine 0.7, Est GFR ( Amer) > 60, Est GFR (Non-Af Amer) > 60, Random Glucose 226 H, Calcium 9.5, Phosphorus 2.9, Magnesium 1.9, Total Bilirubin 0.7, AST 49 H, ALT 44, Alkaline Phosphatase 88, Total Protein 7.9, Albumin 4.7, Globulin 3.2, Albumin/Globulin Ratio 1.5 I have reviewed the lab results: Yes - RAD Interpretation Narrative RAD Interpretations (Text): EXAM: CT Head Without Intravenous Contrast FINDINGS: Brain: Mild atrophy. No intracranial hemorrhage. No mass. Several scattered foci of decreased attenuation within periventricular/subcortical white matter. No definite edema. Ventricles: No hydrocephalus. Bones/joints: No acute fracture. Soft tissues: Unremarkable. Sinuses: Scattered mild mucosal thickening of ethmoid sinuses. Mastoid air cells: No mastoid effusion. Orbits: Unremarkable as visualized. IMPRESSION: 1. Nonspecific white matter changes. 2. If symptoms persist, consider MRI for further evaluation. 3. Incidental/non-acute findings are described above. Radiology Orders: 02/17/17 02:20 CHEST PORTABLE [RAD] Stat 02/17/17 02:21 HEAD W/O CONTRAST [CT] Stat Pathology Laboratory Aide: ED Physician, Radiologist - EKG Interpretation Interpreted by ED Physician: Yes Type: 12 lead EKG - Medication Orders Current Medication Orders: Discontinued Medications Sodium Chloride (Sodium Chloride 0.9%) 1,000 mls @ 999 mls/hr IV .Q1H1M STA Stop: 02/17/17 04:38 Last Admin: 02/17/17 03:41 Dose: 999 MLS/HR eMAR Start Stop Document 02/17/17 03:41 SB (Rec: 02/17/17 03:41 SB [id number]) Intravenous Solution Start Date 02/17/17 Start Time 03:41 End Date 02/17/17 Lorazepam (Ativan) Confirm Administered Dose 2 mg .ROUTE .STK-MED ONE Stop: 02/17/17 02:13 Last Admin: 03/31/17 02:20 Dose: 2 MG Behavioural Document 02/17/17 02:20 SB (Rec: 02/17/17 02:46 SB [id number]) Maintenance Maintenance Dose No Nonmedicinal Nonmedicinal Interventions Redirect Therapeutic Communication Behavior Behavior for Medication: Anxiety Lorazepam (Ativan) 2 mg IVP ONCE ONE PRN Reason: Protocol Stop: 02/17/17 02:21 Last Admin: 02/17/17 02:20 Dose: - Scribe Statement The provider has reviewed the documentation as recorded by the Christopher Knott Provider Attestation: All medical record entries made by the Christopher were at my direction and personally dictated by me. I have reviewed the chart and agree that the record accurately reflects my personal performance of the history, physical exam, medical decision making, and the department course for this patient. I have also personally directed, reviewed, and agree with the discharge instructions and disposition. Disposition/Present on Arrival - Present on Arrival Any Indicators Present on Arrival: No History of DVT/PE: No History of Uncontrolled Diabetes: No Urinary Catheter: No History of Decub. Ulcer: No History Surgical Site Infection Following: None - Disposition Have Diagnosis and Disposition been Completed?: Yes Diagnosis: Status epilepticus Disposition: HOSPITALIZED Disposition Time: 03:45 Patient Plan: Observation, Telemetry Patient Problems: Current Active Problems Problem Status Diagnosed Fever Acute Headache Acute Leukopenia Acute Pancytopenia Acute Weakness Acute B-cell lymphoma Chronic COPD (chronic obstructive pulmonary disease) Chronic Intractable nausea and vomiting Resolved Condition: FAIR
[2017-02-17 02:28] LABS: ADD MANUAL DIFF? NO
[2017-02-17 02:33] LABS: BASO # 0.01 K/mm3 (0.0-2.0); BASO % 0.1 % (0.0-3.0); EOS # 0.1 (0.0-0.7); EOS % 0.7 % (1.5-5.0); GRAN # 6.25 (1.4-6.5); GRAN % 70.2 % (50.0-68.0); HEMATOCRIT 40.9 % (36.0-48.0); LYMPH # 1.6 (1.2-3.4); LYMPH % 17.9 % (22.0-35.0); MEAN CELL VOLUME 92.7 fL (80.0-105.0); MEAN CORPUSCULAR HEMOGLOBIN 31.3 pg (25.0-35.0); MEAN CORPUSCULAR HGB CONC 33.7 g/dl (31.0-37.0); MEAN PLATELET VOLUME 9.2 fl (7.0-11.0); MONO % 11.1 % (1.0-6.0); PLATELET COUNT 171 10^3/uL (120.0-450.0); RED CELL DISTRIBUTION WIDTH 14.9 % (11.5-14.5)
[2017-02-17 02:40] LABS: WHITE BLOOD COUNT 8.9 10^3/ul (4.5-11.0)
[2017-02-17 02:51] LABS: INR 0.99 (0.93-1.08); PARTIAL THROMBOPLASTIN TIME 21.6 Seconds (23.7-30.8)
[2017-02-17 02:53] LABS: ALB/GLOB RATIO 1.5 (1.1-1.8); ALKALINE PHOSPHATASE 88 U/L (38-133); ALT/SGPT 44 U/L (7-56); AST/SGOT 49 U/L (15-39); BILIRUBIN,TOTAL 0.7 mg/dL (0.2-1.3); BLOOD UREA NITROGEN 16 mg/dL (7-21); CALCIUM 9.5 mg/dL (8.4-10.5); CARBON DIOXIDE 30 mmol/L (21-33); CHLORIDE 94 mmol/L (98-107); GFR AFRICAN-AMERICAN > 60; GLUCOSE,RANDOM 226 mg/dL (70-110); MAGNESIUM 1.9 mg/dL (1.7-2.2); PHOSPHOROUS 2.9 mg/dL (2.5-4.5); POTASSIUM 3.9 mmol/L (3.6-5.0); SODIUM 137 mmol/L (132-148); TOTAL PROTEIN 7.9 g/dL (5.8-8.3)
[2017-02-17 02:58] LABS: PH,URINE 7.5 (4.7-8.0); URINE BILIRUBIN NEGATIVE (NEGATIVE); URINE BLOOD TRACE-INTACT (NEGATIVE); URINE GLUCOSE (UA) 250 mg/dL (NEGATIVE); URINE KETONE NEGATIVE (NEGATIVE); URINE LEUKOCYTE ESTERASE NEGATIVE Leu/uL (NEGATIVE); URINE PROTEIN 100 mg/dL (<30 mg/dL); URINE UROBILINOGEN 0.2 E.U./dL (<1 E.U./dL)
[2017-02-17 03:00] LABS: URINE APPEARANCE CLOUDY (CLEAR); URINE COLOR STRAW (YELLOW)
[2017-02-17 03:13] LABS: URINE RBC 0 - 2 /hpf (0-2)
[2017-02-17 03:14] LABS: URINE BACTERIA MOD (NEG); URINE WBC 0 - 2 /hpf (0-6)
[2017-02-17] MEDS ORDERED: Sodium Chloride 0.9% 1,000 ML IV STA (03:38)
--- NOTE | 2017-02-17 03:38 | CT ---
EXAM: CT Head Without Intravenous Contrast CLINICAL HISTORY: 66 years old, female; Signs and symptoms; Other: Seizure; Additional info: Prolonged seizure, h/o brain tumor TECHNIQUE: Axial computed tomography images of the head/brain without intravenous contrast. This CT exam was performed using one or more of the following dose reduction techniques: automated exposure control, adjustment of the mA and/or kV according to patient size, and/or use of iterative reconstruction technique. COMPARISON: CT - HEAD W/O CONTRAST 11/16/2016 9:30:31 PM FINDINGS: Brain: Mild atrophy. No intracranial hemorrhage. No mass. Several scattered foci of decreased attenuation within periventricular/subcortical white matter. No definite edema. Ventricles: No hydrocephalus. Bones/joints: No acute fracture. Soft tissues: Unremarkable. Sinuses: Scattered mild mucosal thickening of ethmoid sinuses. Mastoid air cells: No mastoid effusion. Orbits: Unremarkable as visualized. IMPRESSION: 1. Nonspecific white matter changes. 2. If symptoms persist, consider MRI for further evaluation. 3. Incidental/non-acute findings are described above.
--- NOTE | 2017-02-17 09:24 | RAD ---
HISTORY: seizure COMPARISON: 02/12/2017 FINDINGS: LUNGS: No active pulmonary disease. PLEURA: No significant pleural effusion identified, no pneumothorax apparent. CARDIOVASCULAR: Normal. OSSEOUS STRUCTURES: No significant abnormalities. VISUALIZED UPPER ABDOMEN: Normal. OTHER FINDINGS: Right-sided Port-A-Cath IMPRESSION: No active disease.
--- NOTE | 2017-02-17 14:21 | CARD ---
APPROVED REPORT EKG Measurement Heart [id number] [id number] <Conclusion> Sinus tachycardia with fusion complexes Voltage criteria for left ventricular hypertrophy Marked ST abnormality, possible lateral wall Ischaemia. Abnormal ECG
--- NOTE | 2017-02-17 14:35 | HP ---
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 The patient had recently b een discharged home from [facility] after a course of radiation and physical therapy, however, developed a tonic-clonic seizure last night as per the family and was brought into Emergency Room in a semi-postictal, semiconscious state and was readmitted to the floor. The patient did have a CT in the ER, which was negative. Laboratory data was unremarkable. PHYSICAL EXAMINATION: GENERAL: Shows a well-developed, but thin black female, postictal, in no apparent distress. HEENT: Essentially normal limits. HEART: Regular sinus rhythm. No S3, no murmurs. CHEST: Clear to auscultation and percussion. ABDOMEN: Thin, but benign. EXTREMITIES: Without cyanosis, clubbing or edema. NEUROLOGIC: Grossly intact, except for some mild hemiparesis of the right upper extremity. VITAL SIGNS: Blood pressure is 132/90, heart rate is 95, temperature is 98.5. LABORATORY DATA: Reveal normal H and H, normal white count 8.9. INR was within normal limits. Bloo d sugar was mildly elevated 226. Urine showed protein, sugar and some bacteria. CT of the head was no change and chest x-ray was clear. IMPRESSION: A 66-year-old black female, history of seizure disorder, recent history of central nervo us system lymphoma, status post radiation to the brain, admitted with recurrent onset of seizure. Alex Butt MD cc: [id number] TT: 02/17/2017 14:34:50 en
[2017-02-17] MEDS ORDERED: Influenza Vaccine 45 MCG/0.5 ml IM ONE (15:29)
[2017-02-17] MEDS ORDERED: Pneumococcal 23-Valent Vaccine IM ONE (15:29)
[2017-02-17] MEDS: PRESERVISION AREDS PO SCH (17:38)
--- NOTE | 2017-02-17 18:44 | CON ---
DATE: 02/17/2017 HISTORY OF PRESENT ILLNESS: This is a 66-year-old black female with past medical history of stage IV B-cell lymphoma with mets to the brain. The patient admitted here with a seizure. The patient was taking Lamictal and added Keppra 500 p.o. twice a day. I was called to evaluate the patient. PAST MEDICAL HISTORY: and Port-A-Cath. ALLERGIES: No known drug allergies. PHYSICAL EXAMINATION: GENERAL: The patient is awake, drowsy, postictal and follows some simple commands. Spontaneous move ment of all the extremities noted. Deep tendon reflexes 1+. Both plantars downgoing. Sensory appea rs intact. Cerebellar gait deferred. IMPRESSION: Seizure disorder, postictal and EEG recently done was abnormal. We will add Keppra 500 mg p.o. twice a day. Jonathan Schwartz MD cc: [id number] TT: 02/17/2017 18:44:04 Confirmation # [id number] Dictation # [id number] sn
[2017-02-18] MEDS: Metoprolol Succinate 100 mg XL Tab PO SCH (08:10)
[2017-02-18] MEDS: PRESERVISION AREDS PO SCH ×2 (09:51→18:30)
[2017-02-18] MEDS ORDERED: Non Formulary Medication (Valsartan/Hydrochlorothiazide [Valsartan-Hctz 320-25 Mg Tab] 1 T PO SCH (10:00)
--- NOTE | 2017-02-18 10:20 | PN ---
DATE: 02/18/2017 SUBJECTIVE: A 66-year-old black female admitted to the hospital in postictal state after a seizure. 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 The patient has a long history of seizure disorder, hypertension in the past. The patient is seen i n bed. She is improved. She had no further seizure activity. She was seen in consultation by Dr. Radha luther. She is on Lamictal, but Keppra was added. We will follow patient for 24 hours to rule out an y other seizure. She also is coughing and having difficulty swallowing. She has some rhonchi bilate rally in her chest. She will have a CT of the chest and a swallowing evaluation. Otherwise, we will continue her other medications. Vital signs are stable. Heart rate is still slightly elevated at 1 14. Metoprolol was recently added. She is afebrile. Blood pressure is 140/74. LABORATORY DATA: Unremarkable. REVIEW OF SYSTEMS: A 12-point review of systems is negative except for cough and some dysphagia. Alex Butt MD cc: [id number] TT: 02/18/2017 10:20:14 Confirmation # [id number] Dictation # [id number] moise
[2017-02-18] MEDS: Insulin Reg-LOW-Coverage SC SCH ×3 (12:23→22:14)
--- NOTE | 2017-02-18 18:34 | PN ---
DATE: 02/18/2017 CHIEF COMPLAINT: Follow up for seizures. SUBJECTIVE: The patient seen and examined at bedside. No further seizure-like activity. She had br eakthrough seizures and therefore she was brought to the hospital for further evaluation. 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 She is on Keppra 500 mg p.o. b.i.d. and lamotrigine 200 mg p.o. b.i.d. as well as Lyrica 25 mg p.o. b.i.d. for neuropathic pain. She uses Valium minimally. Swallow evaluation note reviewed. 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 SOCIAL HISTORY: No illicit drug use or ETOH abuse. FAMILY HISTORY: Noncontributory. ALLERGIES: No known drug allergies. MEDICATIONS: Reviewed by nurse's reconciliation sheet. REVIEW OF SYSTEMS: A 14-point review of systems negative except as noted in history of [facility]. PHYSICAL EXAMINATION: VITAL SIGNS: Temperature 98.9, pulse rate of 86, blood pressure 125/78 and respiratory rate 18. GENERAL: The patient is sitting up in bed in no acute distress. HEENT: Atraumatic and normocephalic. PERRLA. Extraocular muscles intact. LUNGS: Slight decreased breath sounds bilaterally. HEART: S1, S2, normal rate and rhythm. No murmurs, rubs or gallops. ABDOMEN: Soft, nontender and nondistended. Bowel sounds are present. EXTREMITIES: No clubbing and no cyanosis. Peripheral pulses 2+ felt bilaterally. Right upper extre mity is tender to touch. She has limited movement from her right rotator cuff tear in the past. NEUROLOGIC: The patient is alert, oriented to person, place, month and year. She follows simple com mands. Speech is fluent, without any errors. No aphasia noted. Cranial nerves II through XII are i ntact. MOTOR: Moves all extremities equally, but limited on the right upper extremity due to history of rig ht rotator cuff tear. SENSORY: Decreased light touch and pinprick up to the calves bilaterally. Decreased vibration at th e toes. DEEP TENDON REFLEXES: 1+ throughout and absent at the ankles. COORDINATION: [id number] intact. GAIT: Deferred for now. LABORATORY DATA: Blood sugar today is 166. ASSESSMENT AND PLAN: This is a 66-year-old woman with history of lymphoma with brain involvement inv olving the trigeminal nerve and the lateral alma and into Meckel's cave, status post radiation, histo ry of chronic obstructive pulmonary disease, right upper extremity rotator cuff tear, electrolyte imb alance, mild pulmonary hypertension and breakthrough seizures. Her last EEG was recently done in the middle of 01/2017, showing paroxysmal activity consistent with diagnosis of seizures from central ner vous system lymphoma. At this time, recommend: 1. Will continue lamotrigine 200 mg p.o. b.i.d. and Keppra 500 mg p.o. t.i.d. for seizure prophylaxi s. Monitor for further seizures. 2. Continue with Lyrica 25 mg p.o. b.i.d. for neuropathic pain and could possibly bump it up to even 50 p.o. b.i.d., which also gives a little bit of anticonvulsant effect. 3. 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 No further neurological workup is needed at this time. Please recon sult if necessary. Petar Schwartz MD cc: [id number] TT: 02/18/2017 18:33:09 Confirmation # [id number] Dictation # [id number] sn
[2017-02-19 06:40] VITALS: O2SAT 95
[2017-02-19] MEDS: Metoprolol Succinate 100 mg XL Tab PO SCH (08:04)
[2017-02-19] MEDS: Insulin Reg-LOW-Coverage SC SCH ×3 (08:40→17:33)
--- NOTE | 2017-02-19 10:13 | CT ---
PROCEDURE: CT Chest without contrast HISTORY: cough COMPARISON: 10/18/2016. TECHNIQUE: Contiguous axial images were obtained through the chest without intravenous contrast enhancement. Sagittal and coronal reconstructions were performed. Radiation dose (DLP): mGy-cm. FINDINGS: LUNGS: 2 millimeter right upper lobe nodule (image number [id number]). No change from prior exam. No acute infiltrate. MEDIASTINUM: Unremarkable thoracic aorta. No aneurysm. Normal sized heart. Main pulmonary artery unremarkable. No vascular congestion. No lymphadenopathy. PLEURA: No pleural fluid. No pneumothorax. BONES: No fracture. No destructive lesion. UPPER ABDOMEN: Stable calcified rim lesion is in the left kidney measuring 17 millimeters. OTHER FINDINGS: Right MediPort catheter in place. IMPRESSION: Stable 2 millimeter lesion in the right upper lobe. Stable calcified round lesion in the left kidney measuring 17 millimeters.
--- NOTE | 2017-02-19 10:17 | PN ---
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 The patient is improved. She has not had any further seizures. She was seen in consultation by Dr. Schwartz. She is on Lamictal and Keppra. We did have a CT of the chest because of dysphagia and cough ing. PHYSICAL EXAMINATION: CHEST: Clear. HEART: She is swallowing better. CT is pending. If the CT is negative, the patient will be discharged home. VITAL SIGNS: Stable. PHYSICAL EXAMINATION: Unchanged. REVIEW OF SYSTEMS: 12-point review is unremarkable. Alex Butt MD cc: [id number] TT: 02/19/2017 10:17:01 Confirmation # [id number] Dictation # [id number] fabiola
[2017-02-19 12:24] VITALS: BP 142/84; PULSE 79; RESP 20; TEMP 98.6
[2017-02-19] MEDS: PRESERVISION AREDS PO SCH ×2 (15:31→17:34)
--- NOTE | 2017-02-20 09:30 | DS ---
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 The patien isela was admitted to the hospital with a seizure, postictal. A repeat CT was negative. The patient was restarted on Keppra, added to Lamictal. She did well. Vital signs are stable. She had a CT of the chest because of recurrent coughing and possible aspiration, which was negative. The patient was ab le to be discharged home in improved condition to continue Lamictal 200 mg b.i.d. and Keppra 500 mg b .i.d. along with her home medications. The patient will be followed as an outpatient. FINAL DISCHARGE DIAGNOSES: Seizure disorder, central nervous system lymphoma, stage IV lymphoma, his tory of seizure disorder, hypertension, and sinus tachycardia. Alex Butt MD cc: [id number] TT: 02/20/2017 09:29:11 en
== END 2017-02-19 20:00 | disposition home or self-care (01) ==
LOC: ED 02:04 → ERH 06:27 → 2RSO 08:14
PROVIDERS: ADMIT Internal Medicine; ATTEND Internal Medicine
DX: G40.909 Epilepsy, unspecified, not intractable, without status epilepticus (principal); C85.99 Non-Hodgkin lymphoma, unspecified, extranodal and solid organ sites; C79.31 Secondary malignant neoplasm of brain; I10 Essential (primary) hypertension; J44.9 Chronic obstructive pulmonary disease, unspecified; M75.101 Unspecified rotator cuff tear or rupture of right shoulder, not specified as traumatic; I27.2 Other secondary pulmonary hypertension; R13.10 Dysphagia, unspecified; R00.0 Tachycardia, unspecified; Z79.82 Long term (current) use of aspirin
CPT/HCPCS: 36415; 70450; 71010; 71250; 80053; 80299; 81001; 82948; 83735; 84100; 85025; 85610; 85730; 87040; 87086; 92610; 93005; 99285; G0378; G8996; G8997; G8998; J2060; J7040

== ENCOUNTER 2017-03-23 12:05 | Emergency (ER) | payer MEDICARE ==
[2017-03-23 12:18] VITALS: BMI 21.1
--- NOTE | 2017-03-23 12:31 | ED PDOC ---
Arrival/HPI - General Chief Complaint: High Blood Pressure Time Seen by Provider: 03/23/17 12:17 Historian: Patient - History of Present Illness Narrative History of Present Illness (Text): 03/23/17 12:20 A 66 year old female, whose past medical history includes hypertension, seizure , and lymphoma, is sent in from her Oncologists office for a high blood pressure. Patient reports she had an apportionment with Dr. Coleman this morning, so she went to the office. While at the office her blood pressure was taken and patient was advised to come to the emergency department for further evaluation. Patient notes a productive cough for a month but denies any heart palpitations, chest pain, shortness of breath, urinary symptoms or any other complaints at this time. PMD: Dr. Butt Oncologist: Dr. 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) HX Cerebrovascular Accident: No Hx Dizziness: Yes (SYNCOPE) - HEENT Hx HEENT Disorder: Yes Hx Cataracts: Yes (bilateral) - Renal Hx Pyelonephritis: Yes Hx Renal Failure: No - Endocrine/Metabolic Hx Diabetes Mellitus Type 1: No Hx Diabetes Mellitus Type 2: No Hx Hypothyroidism: No - Hematological/Oncological Hx Cancer: Yes (Brain) - Integumentary Hx Dermatological Disorder: No - Musculoskeletal/Rheumatological Hx Arthritis: No Hx Falls: Yes - Gastrointestinal Hx Gastroesophageal Reflux: Yes - Genitourinary/Gynecological Hx Genitourinary Disorders: Yes (HYSTERECTOMY) Hx Incontinence: Yes - Psychiatric Hx Psychophysiologic Disorder: Yes Hx Anxiety: Yes Hx Substance Use: No - Surgical History Hx Hysterectomy: Yes - Anesthesia Hx Anesthesia: Yes Hx Anesthesia Reactions: No Hx Malignant Hyperthermia: No - Suicidal Assessment Feels Threatened In Home Enviroment: No Family/Social History - Physician Review Nursing Documentation Reviewed: Yes Family/Social History: Unknown Family HX Smoking Status: Former Smoker Hx Alcohol Use: Yes (DRINKS BEER OCCASIONALLY) Hx Substance Use: No Hx Substance Use Treatment: No Allergies/Home Meds Allergies/Adverse Reactions: Allergies No Known Allergies Allergy (Verified 03/23/17 12:18) Home Medications: Home Meds Medication Instructions Recorded Confirmed Aspirin [Ecotrin] 81 mg PO DAILY 09/24/16 02/19/17 Folic Acid 1 mg PO DAILY 09/24/16 02/19/17 Lamotrigine [Lamictal] 200 mg PO BID 10/18/16 02/19/17 Famotidine [Pepcid] 20 mg PO DAILY 10/22/16 02/19/17 Prednisone 20 mg PO DAILY 10/22/16 02/19/17 Valsartan/Hydrochlorothiazide 1 tab PO DAILY 12/18/16 02/19/17 [Valsartan-Hctz 320-25 mg Tab] Vit A/Vit C/Vit E/Zinc/Copper 1 tab PO BID 12/18/16 02/17/17 [Preservision Areds Tablet] amLODIPine [Norvasc] 10 mg PO DAILY 12/18/16 02/19/17 Atorvastatin [Lipitor] 1 tab PO HS 02/17/17 02/17/17 Pregabalin [Lyrica] 1 cap PO BID 02/17/17 02/19/17 Review of Systems - Physician Review All systems were reviewed & negative as marked: Yes - Review of Systems Constitutional: Other (high blood pressure). absent: Fevers Respiratory: Cough, Sputum. absent: SOB Cardiovascular: absent: Chest Pain, Palpitations Physical Exam Vital Signs Reviewed: Yes Vital Signs Temp Pulse Resp BP Pulse Ox 03/23/17 17:55 98.8 F 116 H 18 99 03/23/17 15:48 115 H 18 149/95 H 100 03/23/17 14:16 112 H 146/104 H 03/23/17 13:50 97.8 F 118 H 20 180/120 H 100 03/23/17 13:46 115 H 18 180/120 H 99 03/23/17 12:19 98.2 F 113 H 18 158/102 H 99 Temperature: Afebrile Blood Pressure: Hypertensive Pulse: Tachycardic Respiratory Rate: Normal Appearance: Positive for: Well-Appearing, Non-Toxic, Comfortable Pain Distress: None Mental Status: Positive for: Alert and Oriented X 3 - Systems Exam Head: Present: Atraumatic, Normocephalic Pupils: Present: PERRL Extroacular Muscles: Present: EOMI Conjunctiva: Present: Normal Mouth: Present: Moist Mucous Membranes Neck: Present: Normal Range of Motion Respiratory/Chest: Present: Clear to Auscultation, Good Air Exchange. No: Respiratory Distress, Accessory Muscle Use Cardiovascular: Present: Normal S1, S2, Tachycardic. No: Murmurs Abdomen: Present: Normal Bowel Sounds. No: Tenderness, Distention, Peritoneal Signs Back: Present: Normal Inspection Upper Extremity: Present: Normal Inspection. No: Cyanosis, Edema Lower Extremity: Present: Edema (trace edema bilaterally) Neurological: Present: GCS=15, CN II-XII Intact, Speech Normal Skin: Present: Warm, Dry, Normal Color. No: Rashes Psychiatric: Present: Alert, Oriented x 3, Normal Insight, Normal Concentration Medical Decision Making ED Course and Treatment: 03/23/17 12:20 Impression: A 66 year old female with high blood pressure. Differential Diagnosis include but are not limited to: hypertensive emergency vs. pneumonia Plan: -- EKG -- Chest X-ray -- Labs -- Urinalysis -- Reassess and disposition Prior Visits: Notes and results from previous visits were reviewed. The patient last presented to the emergency department on 02/17/17 for evaluation after a seizure. Progress Notes: EKG: Ordered, reviewed, and independently interpreted the EKG. Rate : 112 BPM Rhythm : Sinus Tachycardia Interpretation : No ST-segment elevations or depressions, no T-wave inversions, normal intervals. 03/23/17 13:00 Chest X-ray: Creator : Faraz Sparks MD COMPARISON: 02/17/2017 FINDINGS: LUNGS: No active pulmonary disease. PLEURA: No significant pleural effusion identified, no pneumothorax apparent. CARDIOVASCULAR: Normal. OSSEOUS STRUCTURES: No significant abnormalities. VISUALIZED UPPER ABDOMEN: Normal. OTHER FINDINGS: Right-sided Port-A-Cath IMPRESSION: No active disease. Patient's HR and BP improved. I discusssed case with Dr. Butt, wilian of patient, who states that patient's HR is always elevated at 110-120's in the office. He agrees we can have patient follow up with him as an outpatient. She is currently still asymptomatic. - Lab Interpretations Lab Results: 03/23/17 12:30 03/23/17 12:30 Lab Results 03/23/17 13:45: Urine Color Yellow, Urine Appearance Clear, Urine pH 7.5, Ur Specific Woodruff 1.015, Urine Protein Trace H, Urine Glucose (UA) Negative, Urine Ketones Negative, Urine Blood Negative, Urine Nitrate Negative, Urine Bilirubin Negative, Urine Urobilinogen 0.2, Ur Leukocyte Esterase Negative, Urine RBC Negative, Urine WBC Negative, Urine Bacteria Trace 03/23/17 12:30: pO2 182 H, VBG pH 7.52 H, VBG pCO2 40.0, VBG HCO3 32.7 H, VBG Total CO2 33.9 H, VBG O2 Sat (Calc) 100.0 H, VBG Base Excess 9.0 H, VBG Potassium 3.5 L, Sodium 139.0, Chloride 106.0, Glucose 108 H, Lactate 1.7, FiO2 21.0, Venous Blood Potassium 3.5 L 03/23/17 12:30: Sodium 137, Chloride 98, Potassium 3.4 L, Carbon Dioxide 32, Anion Gap 10, BUN 15, Creatinine 0.8, Est GFR ( Amer) > 60, Est GFR (Non- Af Amer) > 60, Random Glucose 103, Calcium 10.0, Magnesium 2.0, Total Bilirubin 0.9, AST 37, ALT 49, Alkaline Phosphatase 66, Lactate Dehydrogenase 1236 H, Total Creatine Kinase 73, Troponin I 0.01 D, NT-Pro-B Natriuret Pep 136, Total Protein 7.2, Albumin 4.4, Globulin 2.8, Albumin/Globulin Ratio 1.6 03/23/17 12:30: WBC 3.7 L D, RBC 4.15, Hgb 13.1, Hct 38.9, MCV 93.7, MCH 31.6, MCHC 33.7, RDW 13.8, Plt Count 185, MPV 9.0, Gran % 62.0, Lymph % (Auto) 24.2, Hudspeth % (Auto) 13.3 H, Eos % (Auto) 0.5 L, Baso % (Auto) 0.0, Gran # 2.28, Lymph # 0.9 L, Hudspeth # 0.5, Eos # 0.0, Baso # 0.00 I have reviewed the lab results: Yes - RAD Interpretation Radiology Orders: 03/23/17 12:26 CHEST PORTABLE [RAD] Stat 03/23/17 14:25 ANGIO CHEST PE PROTOCOL [CT] Stat - Medication Orders Current Medication Orders: Discontinued Medications Iodixanol (Visipaque 320 Mg/Ml 100 Ml) Confirm Administered Dose 100 ml IV .STK- MED ONE Stop: 03/23/17 14:30 Labetalol HCl (Trandate) 20 mg IV STAT STA Stop: 03/23/17 13:51 Last Admin: 03/23/17 14:04 Dose: 20 mg Potassium Chloride (K-Dur 20 Meq Er Tab) 40 meq PO STAT STA Stop: 03/23/17 13:17 Last Admin: 03/23/17 13:54 Dose: 40 meq - Scribe Statement The provider has reviewed the documentation as recorded by the Missaelibe Betty Pike Provider Scribe Attestation: All medical record entries made by the Scribe were at my direction and personally dictated by me. I have reviewed the chart and agree that the record accurately reflects my personal performance of the history, physical exam, medical decision making, and the department course for this patient. I have also personally directed, reviewed, and agree with the discharge instructions and disposition. Disposition/Present on Arrival - Present on Arrival Any Indicators Present on Arrival: No History of DVT/PE: No History of Uncontrolled Diabetes: No Urinary Catheter: No History of Decub. Ulcer: No History Surgical Site Infection Following: None - Disposition Have Diagnosis and Disposition been Completed?: Yes Diagnosis: Hypertension, Tachycardia Disposition: HOME/ ROUTINE Disposition Time: 17:57 Patient Plan: Discharge Condition: IMPROVED Discharge Instructions (ExitCare): Hypertension (ED) Additional Instructions: Cain, thank you for letting us take care of you today. Your provider was Dr. Ruiz. You were treated for Hypertension, Tachycardia. The emergency medical care you received today was directed at your acute symptoms. If you were prescribed any medication, please fill it and take as directed. It may take several days for your symptoms to resolve. Return to the Emergency Department if your symptoms worsen, do not improve, or if you have any other problems. Please contact your doctor or call one of the physicians/clinics you have been referred to that are listed on the Patient Visit Information form that is included in your discharge packet. Bring any paperwork you were given at discharge with you along with any medications you are taking to your follow up visit. Our treatment cannot replace ongoing medical care by a primary care provider (PCP) outside of the emergency department. Thank you for allowing the [facility] team to be part of your care today. If you had an X-Ray or CT scan: A Radiologist will review the ED reading if any change in treatment is needed we will contact you. If you had a blood, urine, or wound culture: It will take several days for the results, if any change in treatment is needed we will contact you. If you had an STI test: It will take 48 hours for the results. Please call after 1 week if you have not heard back. Referrals: Alex Butt MD [Primary Care Provider] - Follow up with primary
[2017-03-23 12:55] LABS: ADD MANUAL DIFF? NO
--- NOTE | 2017-03-23 12:57 | RAD ---
HISTORY: cough r/o pna COMPARISON: 02/17/2017 FINDINGS: LUNGS: No active pulmonary disease. PLEURA: No significant pleural effusion identified, no pneumothorax apparent. CARDIOVASCULAR: Normal. OSSEOUS STRUCTURES: No significant abnormalities. VISUALIZED UPPER ABDOMEN: Normal. OTHER FINDINGS: Right-sided Port-A-Cath IMPRESSION: No active disease.
[2017-03-23 12:59] LABS: VENOUS BLOOD PH 7.52 (7.32-7.43)
[2017-03-23 13:06] LABS: EOS % 0.5 % (1.5-5.0); GRAN # 2.28 (1.4-6.5); HEMATOCRIT 38.9 % (36.0-48.0); LYMPH # 0.9 (1.2-3.4); LYMPH % 24.2 % (22.0-35.0); MEAN CELL VOLUME 93.7 fL (80.0-105.0); MEAN CORPUSCULAR HEMOGLOBIN 31.6 pg (25.0-35.0); MEAN CORPUSCULAR HGB CONC 33.7 g/dl (31.0-37.0); MONO # 0.5 (0.1-0.6); MONO % 13.3 % (1.0-6.0); PLATELET COUNT 185 10^3/uL (120.0-450.0); RED CELL DISTRIBUTION WIDTH 13.8 % (11.5-14.5); WHITE BLOOD COUNT 3.7 10^3/ul (4.5-11.0)
[2017-03-23 13:09] LABS: ALB/GLOB RATIO 1.6 (1.1-1.8); ALKALINE PHOSPHATASE 66 U/L (38-133); ALT/SGPT 49 U/L (7-56); AST/SGOT 37 U/L (15-39); BILIRUBIN,TOTAL 0.9 mg/dL (0.2-1.3); BLOOD UREA NITROGEN 15 mg/dL (7-21); CARBON DIOXIDE 32 mmol/L (21-33); CHLORIDE 98 mmol/L (98-107); GFR AFRICAN-AMERICAN > 60; GLUCOSE,RANDOM 103 mg/dL (70-110); POTASSIUM 3.4 mmol/L (3.6-5.0); SODIUM 137 mmol/L (132-148); TOTAL PROTEIN 7.2 g/dL (5.8-8.3)
[2017-03-23] MEDS ORDERED: Potassium Chloride 20 mEq ER Tab PO STA (13:16)
[2017-03-23 13:27] LABS: TROPONIN I 0.01 ng/mL
[2017-03-23 13:50] LABS: PH,URINE 7.5 (4.7-8.0); URINE BILIRUBIN NEGATIVE (NEGATIVE); URINE BLOOD NEGATIVE (NEGATIVE); URINE GLUCOSE (UA) NEGATIVE (NEGATIVE); URINE KETONE NEGATIVE (NEGATIVE); URINE LEUKOCYTE ESTERASE NEGATIVE Leu/uL (NEGATIVE); URINE PROTEIN TRACE mg/dL (<30 mg/dL); URINE UROBILINOGEN 0.2 E.U./dL (<1 E.U./dL)
[2017-03-23] MEDS ORDERED: Labetalol 5 mg/ml Inj 20ML IV STA (13:50)
[2017-03-23 13:51] LABS: URINE APPEARANCE CLEAR (CLEAR); URINE COLOR YELLOW (YELLOW)
[2017-03-23 13:52] LABS: URINE BACTERIA TRACE (NEG); URINE RBC NEGATIVE /hpf (0-2); URINE WBC NEGATIVE /hpf (0-6)
[2017-03-23] MEDS ORDERED: Iodixanol 320 MG/ML 100 ML BOTTLE IV ONE (14:29)
[2017-03-23 15:49] VITALS: BP 149/95; RESP 18
--- NOTE | 2017-03-23 15:51 | CT ---
PROCEDURE: CT Chest with contrast (Pulmonary Angiogram) HISTORY: tachy and h/o lymphoma r/o PE COMPARISON: None available. TECHNIQUE: Axial computed tomography images were obtained of the chest in the pulmonary arterial phase of enhancement. Coronal and sagittal reformatted images were created and reviewed. Intravenous contrast dose: 100 cc of Visipaque Radiation dose: Total exam DLP = 192 mGy-cm. This CT exam was performed using one or more of the following dose reduction techniques: Automated exposure control, adjustment of the mA and/or kV according to patient size, and/or use of iterative reconstruction technique. FINDINGS: PULMONARY ARTERIES: Unremarkable. No pulmonary embolism. AORTA: No acute findings. No thoracic aortic aneurysm. LUNGS: Unremarkable. No nodule, mass or pulmonary consolidation. PLEURAL SPACES: Unremarkable. No effusion or pneuomothorax. HEART: Unremarkable. No cardiomegaly. No significant pericardial effusion. LYMPH NODES: No lymphadenopathy. BONES, CHEST WALL: Unremarkable. No fracture or destructive lesion OTHER FINDINGS: Unremarkable. IMPRESSION: No acute findings. No evidence of pulmonary embolus
--- NOTE | 2017-03-23 17:07 | CARD ---
APPROVED REPORT EKG Measurement Heart [id number] <Conclusion> Poor data quality, interpretation may be adversely affected Sinus tachycardia Minimal voltage criteria for LVH, may be normal variant Borderline ECG
[2017-03-23 17:57] VITALS: PULSE 116; TEMP 98.8; O2SAT 99
== END 2017-03-23 17:56 | disposition home or self-care (01) ==
LOC: ED 12:05
DX: R00.0 Tachycardia, unspecified (principal); I10 Essential (primary) hypertension; J44.9 Chronic obstructive pulmonary disease, unspecified; K21.9 Gastro-esophageal reflux disease without esophagitis; C85.90 Non-Hodgkin lymphoma, unspecified, unspecified site; Z87.891 Personal history of nicotine dependence
CPT/HCPCS: 71010; 71275; 80053; 81001; 82550; 82803; 83615; 83735; 83880; 84484; 85025; 93005; 99283; Q9967

== ENCOUNTER 2017-05-06 15:37 | Inpatient (IN) | payer MEDICARE, OTHER ==
[2017-05-06 15:38] VITALS: BMI 21.1
--- NOTE | 2017-05-06 16:24 | ED PDOC ---
Arrival/HPI - General Chief Complaint: Weakness/Neurological Deficit Time Seen by Provider: 05/06/17 15:45 Historian: Patient - History of Present Illness Narrative History of Present Illness (Text): 05/06/17 16:24 Patient is a 66 year old female whose past medical history includes lymphoma, on chemotherapy and radiation therapy who presents to the emergency department with headache after coughing today. She states she gets headaches every "once in a while." Patient also reports she has had hoarse voice for "a while". She states she has cold symptoms. Denies shortness of breath. She denies hemoptysis to me. She denies nasal congestion. Reports no facial swelling or visual difficulties. Denies any numbness or weakness to arms or legs. 05/06/17 21:15 Time/Duration: 24 hours Symptom Onset: Gradual Symptom Course: Unchanged Modifying Factors (Text): None Past Medical History - Provider Review Nursing Documentation Reviewed: Yes - Infectious Disease Hx of Infectious Diseases: None - Reproductive Menopause: Yes - Cardiac Hx Cardiac Disorders: Yes Hx Hypertension: Yes - Pulmonary Hx Chronic Obstructive Pulmonary Disease (COPD): Yes - Neurological Hx Neurological Disorder: Yes (BRAIN AND NECK MASS-BRAIN CA WITH RADIATION) HX Cerebrovascular Accident: No Hx Dizziness: Yes (SYNCOPE) - HEENT Hx HEENT Disorder: Yes Hx Cataracts: Yes (bilateral) - Renal Hx Pyelonephritis: Yes Hx Renal Failure: No - Endocrine/Metabolic Hx Diabetes Mellitus Type 1: No Hx Diabetes Mellitus Type 2: No Hx Hypothyroidism: No - Hematological/Oncological Hx Cancer: Yes (Brain) - Integumentary Hx Dermatological Disorder: No - Musculoskeletal/Rheumatological Hx Arthritis: No Hx Falls: Yes - Gastrointestinal Hx Gastroesophageal Reflux: Yes - Genitourinary/Gynecological Hx Genitourinary Disorders: Yes (HYSTERECTOMY) Hx Incontinence: Yes - Psychiatric Hx Psychophysiologic Disorder: Yes Hx Anxiety: Yes Hx Substance Use: No - Surgical History Hx Hysterectomy: Yes Other/Comment: Port in R chest - Anesthesia Hx Anesthesia: Yes Hx Anesthesia Reactions: No Hx Malignant Hyperthermia: No - Suicidal Assessment Feels Threatened In Home Enviroment: No Family/Social History - Physician Review Nursing Documentation Reviewed: Yes Family/Social History: Unknown Family HX Smoking Status: Former Smoker Hx Alcohol Use: Yes (DRINKS BEER OCCASIONALLY) Frequency of alcohol use: Socially Hx Substance Use: No Hx Substance Use Treatment: No Allergies/Home Meds Allergies/Adverse Reactions: Allergies No Known Allergies Allergy (Verified 05/06/17 15:45) Home Medications: Home Meds Medication Instructions Recorded Confirmed Lamotrigine [Lamictal] 200 mg PO BID 10/18/16 05/06/17 Famotidine [Pepcid] 20 mg PO DAILY 10/22/16 05/06/17 amLODIPine [Norvasc] 10 mg PO DAILY 12/18/16 05/06/17 Gabapentin [Neurontin] 100 mg PO TID 05/06/17 05/06/17 Levetiracetam [Keppra] 500 mg PO BID 05/06/17 05/06/17 Lisinopril [Zestril] 20 mg PO DAILY 05/06/17 05/06/17 Potassium Chloride [Klor-Con 10] 20 meq PO DAILY 05/06/17 05/06/17 Review of Systems - Review of Systems Constitutional: Fatigue. absent: Fevers Eyes: absent: Vision Changes ENT: Voice Changes, Sore Throat, Rhinorrhea, Sinus Congestion. absent: Hearing Changes Respiratory: Cough, Wheezing. absent: SOB, Sputum Cardiovascular: absent: Chest Pain, Palpitations, Edema, SHOEMAKER Gastrointestinal: absent: Abdominal Pain, Nausea, Vomiting Genitourinary Female: absent: Dysuria Musculoskeletal: absent: Neck Pain Skin: absent: Rash Neurological: absent: Dizziness Endocrine: absent: Diaphoresis Psychiatric: absent: Depression Physical Exam - Physical Exam Narrative Physical Exam (Text): Head: Atraumatic. Normocephalic. Palpable right frontal sinus tenderness without erythema or edema. No rash or lesions. Eyes: PERRL. EOMI. Conjunctivae are not pale. Visual acuity and crespo at baseline. NO pain with eye movements. No proptosis. ENT: Mucous membranes are moist and intact. Oropharynx is clear and symmetric. Clear nasal discharge. Right TM is clear with no ear canal edema or drainage. Mild tenderness over mastoid without edema or erythema. No facial swelling, no bony or orbital deformities. Neck: Supple. Full ROM. No JVD. No lymphadenopathy. No midline tenderness. Cardiovascular: Regular rate. Regular rhythm. Systolic murmur. Distal pulses are 2+ and symmetric. Pulmonary/Chest: No evidence of respiratory distress. Mild expiratory wheezing. No retractions. Abdominal: Soft and non-distended. There is no tenderness. No rebound, guarding, or rigidity. No organomegaly. Good bowel sounds. Back: No CVA tenderness. No midline tenderness. Extremities: No edema. No cyanosis. No clubbing. Full range of motion in all extremities. No calf tenderness. Skin: Skin is warm and dry. No petechiae. No purpura. Neurological: Alert, awake, and oriented. No facial droop. No slurred speech. No pronator drift. Reflexes symmetric and intact. No meningeal signs. Psychiatric: Appears tired but easily arousable and answers questions appropriately. Denies suicidal or homicidal ideation. 05/06/17 21:16 Vital Signs Reviewed: Yes Vital Signs Temp Pulse Resp BP Pulse Ox 05/06/17 19:25 103 H 18 141/88 100 05/06/17 18:57 99.2 F 05/06/17 17:11 98.3 F 99 H 17 163/89 H 100 Temperature: Afebrile Appearance: Positive for: Non-Toxic, Uncomfortable Pain Distress: Mild Medical Decision Making ED Course and Treatment: Patient with hx of lymphoma, presents with cough, headache. Plan: Will obtain CT, Chest X-ray, and check labs. Progress Notes: Patient is 66 yo female, past medical hx reportedly of lymphoma she states she also has history of "brain tumor" where she has been receiving radiation and has had chemotherapy in past. Presents to ED and is noted to have right sided headache, no visual symptoms, motor and sensory exam intact. There is mild wheezing noted. States she has had congestion and sore throat. Chest X-Ray Subcontract Administrator : Susan Manriquez MD Report Date : 05/06/2017 18:06:51 IMPRESSION: Right-sided MediPort extends to the cavoatrial junction. Hyperinflation may be seen in the setting of COPD. EXAM: CT Head Without Intravenous Contrast Addendum created by Kali Higgins MD on 05/06/2017 6:22 PM Eastern Time ([place] & [place]) Addendum: There there is a minor voice memorial designer error. The sentence: There is air-fluid level surrounding all paranasal sinuses should have been transcribed as: There are air fluid levels within all bilateral paranasal sinuses which are largely opacified with fluid. The impression is unchanged. IMPRESSION: No acute intracranial hemorrhage or mass effect. Mild atrophy and chronic microvascular changes similar to the previous study. Bilateral pansinusitis. RIGHT otomastoiditis. These findings are new since the prior study. Thank you for allowing us to participate in the care of your patient. Dictated and Authenticated by: Kali Higgins MD On re-exam, no facial edema or erythema or masses noted. She is noted to have mild mastoid tenderness. Nebulizer ordered, wheezing resolved. She denies chest pain or sob. Given ct findings and clinical presentation, iv antibiotics ordered, will admit. Case d/w Dr. Ferreira, covering for patient's PMD, accepts admission. Treatment plan reviewed with patient. 05/06/2017 6:21 PM Eastern Time ([place] & [place]) 05/06/17 21:20 - Lab Interpretations Lab Results: 05/06/17 16:30 05/06/17 16:30 Lab Results 05/06/17 19:00: pCO2 45, pO2 105.0 H, HCO3 33.5 H, ABG pH 7.48 H, ABG Total CO2 34.9 H, ABG O2 Saturation 99.1 H, ABG Base Excess 8.9 H, ABG Potassium 3.6, Sodium 139.0, Chloride 105.0, Glucose 91, Lactate 0.5 L, FiO2 21.0, Arterial Blood Potassium 3.6 05/06/17 17:00: Urine Color Yellow, Urine Appearance Clear, Urine pH 7.5, Ur Specific [place] 1.010, Urine Protein Negative, Urine Glucose (UA) Negative, Urine Ketones Negative, Urine Blood Negative, Urine Nitrate Negative, Urine Bilirubin Negative, Urine Urobilinogen 0.2, Ur Leukocyte Esterase Negative 05/06/17 16:30: Sodium 137, Chloride 99, Potassium 3.3 L, Carbon Dioxide 32, Anion Gap 9 L, BUN 15, Creatinine 0.7, Est GFR ( Amer) > 60, Est GFR (Non -Af Amer) > 60, Random Glucose 90, Calcium 9.3, Total Bilirubin 0.6, AST 35, ALT 41, Alkaline Phosphatase 61, Lactate Dehydrogenase 1020 H, Total Creatine Kinase 163, Troponin I 0.03 D, NT-Pro-B Natriuret Pep 217, Total Protein 6.4, Albumin 3.5, Globulin 2.9, Albumin/Globulin Ratio 1.2 05/06/17 16:30: pO2 135 H, VBG pH 7.46 H, VBG pCO2 49.0, VBG HCO3 34.8 H, VBG Total CO2 36.3 H, VBG O2 Sat (Calc) 99.8 H, VBG Base Excess 9.4 H, VBG Potassium 3.4 L, Sodium 138.0, Chloride 105.0, Glucose 95, Lactate 0.6 L, FiO2 21.0, Venous Blood Potassium 3.4 L 05/06/17 16:30: PT 10.7, INR 0.99, APTT 52.6 H 05/06/17 16:30: Influenza Typ A,B (EIA) Negative for flu a/b 05/06/17 16:30: WBC 4.7 D, RBC 3.57, Hgb 11.1 L, Hct 33.7 L, MCV 94.4, MCH 31.1 , MCHC 32.9, RDW 12.9, Plt Count 161, MPV 8.8, Neutrophils % (Manual) 67, Lymphocytes % (Manual) 30, Monocytes % (Manual) 3, Platelet Evaluation Normal - RAD Interpretation Radiology Orders: 05/06/17 16:17 HEAD W/O CONTRAST [CT] Stat CHEST ONE VIEW [RAD] Stat Telephone Advice Nurse: Radiologist - EKG Interpretation EKG Interpretation (Text): 05/06/17 21:19 EKG at 17:26 sinus tachycardia with rate of 102, minimal voltage criteria for lvh Interpreted by ED Physician: Yes Type: 12 lead EKG - Medication Orders Current Medication Orders: Acetaminophen (Tylenol 325mg Tab) 650 mg PO Q6H PRN PRN Reason: Fever >100.4 F Albuterol/Ipratropium (Duoneb 3 Mg/0.5 Mg (3 Ml) Ud) 3 ml IH [id number] ARVIND Amlodipine Besylate (Norvasc) 10 mg PO DAILY ARVIND Gabapentin (Neurontin) 100 mg PO TID ARVIND PRN Reason: Protocol Ceftriaxone Sodium (Rocephin 1 Gram Ivpb) 1 gm in 100 mls @ 100 mls/hr IVPB DAILY ARVIND PRN Reason: Protocol Azithromycin (Zithromax 500mg In Ns) 500 mg in 250 mls @ 167 mls/hr IVPB DAILY ARVIND PRN Reason: Protocol Lamotrigine (Lamictal) 200 mg PO BID ARVIND Levetiracetam (Keppra) 500 mg PO BID [facility] Last Admin: 05/06/17 20:35 Dose: 500 mg Lisinopril (Zestril) 20 mg PO DAILY ARVIND Methylprednisolone (Solu-Medrol) 40 mg IV Q12 ARVIND Ondansetron HCl (Zofran Inj) 4 mg IVP Q6H PRN PRN Reason: Nausea/Vomiting Oxycodone/Acetaminophen (Percocet 5/325 Mg Tab) 1 tab PO Q4H PRN PRN Reason: Pain, moderate (4-7) Stop: 05/09/17 20:03 Pantoprazole Sodium (Protonix Ec Tab) 40 mg PO 0630 ARVIND Potassium Chloride (K-Dur 20 Meq Er Tab) 20 meq PO BRK ARVIND Discontinued Medications Acetaminophen (Tylenol 325mg Tab) 650 mg PO ONCE STA Stop: 05/06/17 17:04 Last Admin: 05/06/17 17:16 Dose: 650 mg Albuterol/Ipratropium (Duoneb 3 Mg/0.5 Mg (3 Ml) Ud) 3 ml IH STAT STA Stop: 05/06/17 18:48 Last Admin: 05/06/17 19:31 Dose: 3 ml Ceftriaxone Sodium (Rocephin 1 Gram Ivpb) 1 gm in 100 mls @ 200 mls/hr IVPB ONCE STA PRN Reason: Protocol Stop: 05/06/17 19:22 Last Admin: 05/06/17 19:30 Dose: 200 mls/hr Lamotrigine (Lamictal) 200 mg PO ONCE ONE Stop: 05/06/17 20:16 Last Admin: 05/06/17 21:12 Dose: 200 mg Potassium Chloride (K-Dur 20 Meq Er Tab) 20 meq PO STAT STA Stop: 05/06/17 17:25 Last Admin: 05/06/17 18:05 Dose: 20 meq - Scribe Statement The provider has reviewed the documentation as recorded by the Christopher Lunsford Provider Scribe Attestation: All medical record entries made by the Christopher were at my direction and personally dictated by me. I have reviewed the chart and agree that the record accurately reflects my personal performance of the history, physical exam, medical decision making, and the department course for this patient. I have also personally directed, reviewed, and agree with the discharge instructions and disposition. Disposition/Present on Arrival - Present on Arrival Any Indicators Present on Arrival: No History of DVT/PE: No History of Uncontrolled Diabetes: No Urinary Catheter: No History of Decub. Ulcer: No History Surgical Site Infection Following: None - Disposition Have Diagnosis and Disposition been Completed?: Yes Diagnosis: Headache, Mastoiditis, Sinusitis, COPD (chronic obstructive pulmonary disease) Disposition: HOSPITALIZED Disposition Time: 19:30 Patient Plan: Admission Condition: FAIR
[2017-05-06 17:03] LABS: HEMATOCRIT 33.7 % (36.0-48.0); MEAN CELL VOLUME 94.4 fL (80.0-105.0); MEAN CORPUSCULAR HEMOGLOBIN 31.1 pg (25.0-35.0); MEAN CORPUSCULAR HGB CONC 32.9 g/dl (31.0-37.0); MEAN PLATELET VOLUME 8.8 fl (7.0-11.0); PLATELET COUNT 161 10^3/uL (120.0-450.0); RED CELL DISTRIBUTION WIDTH 12.9 % (11.5-14.5); VENOUS BLOOD GAS BASE EXCESS 9.4 mmol/L (0.0-2.0); VENOUS BLOOD PH 7.46 (7.32-7.43); WHITE BLOOD COUNT 4.7 10^3/ul (4.5-11.0)
[2017-05-06 17:05] LABS: ALB/GLOB RATIO 1.2 (1.1-1.8); ALKALINE PHOSPHATASE 61 U/L (38-133); ALT/SGPT 41 U/L (7-56); AST/SGOT 35 U/L (15-39); BILIRUBIN,TOTAL 0.6 mg/dL (0.2-1.3); BLOOD UREA NITROGEN 15 mg/dL (7-21); CALCIUM 9.3 mg/dL (8.4-10.5); CARBON DIOXIDE 32 mmol/L (21-33); CHLORIDE 99 mmol/L (98-107); GFR AFRICAN-AMERICAN > 60; GLUCOSE,RANDOM 90 mg/dL (70-110); POTASSIUM 3.3 mmol/L (3.6-5.0); SODIUM 137 mmol/L (132-148); TOTAL PROTEIN 6.4 g/dL (5.8-8.3)
[2017-05-06 17:09] LABS: ADD MANUAL DIFF? YES
[2017-05-06 17:11] LABS: INR 0.99 (0.93-1.08); PARTIAL THROMBOPLASTIN TIME 52.6 Seconds (23.7-30.8)
[2017-05-06 17:17] LABS: TROPONIN I 0.03 ng/mL
[2017-05-06] MEDS ORDERED: Potassium Chloride 20 mEq ER Tab PO STA (17:24)
[2017-05-06 18:00] LABS: PH,URINE 7.5 (4.7-8.0); URINE BILIRUBIN NEGATIVE (NEGATIVE); URINE BLOOD NEGATIVE (NEGATIVE); URINE GLUCOSE (UA) NEGATIVE (NEGATIVE); URINE KETONE NEGATIVE (NEGATIVE); URINE LEUKOCYTE ESTERASE NEGATIVE Leu/uL (NEGATIVE); URINE PROTEIN NEGATIVE mg/dL (<30 mg/dL); URINE UROBILINOGEN 0.2 E.U./dL (<1 E.U./dL)
[2017-05-06 18:01] LABS: URINE APPEARANCE CLEAR (CLEAR); URINE COLOR YELLOW (YELLOW)
[2017-05-06 18:01] LABS: NEUTROPHIL 67 % (50.0-70.0); PLATELET ESTIMATE NORMAL (NORMAL)
--- NOTE | 2017-05-06 18:08 | RAD ---
HISTORY: cough COMPARISON: Chest x-ray performed 03/23/17, CTA chest performed 03/23/17 TECHNIQUE: Chest, one view. FINDINGS: Right-sided MediPort extends to the cavoatrial junction. LUNGS: Hyperinflation may be seen in setting of COPD. No focal consolidation. Please note that chest x-ray has limited sensitivity for the detection of pulmonary masses. PLEURA: No significant pleural effusion identified. No definite pneumothorax . CARDIOVASCULAR: Heart size appears top normal. OSSEOUS STRUCTURES: Degenerative changes of the spine and shoulders. Acromioclavicular arthropathy. VISUALIZED UPPER ABDOMEN: Unremarkable. OTHER FINDINGS: None. IMPRESSION: Right-sided MediPort extends to the cavoatrial junction. Hyperinflation may be seen in the setting of COPD.
[2017-05-06] MEDS ORDERED: Albuterol-Ipratrop 3 mg / 0.5 (3 ml) UD IH STA (18:47)
[2017-05-06] MEDS ORDERED: cefTRIAXone 1 gm 1 GM/100 ML BAG IVPB STA (18:53)
[2017-05-06 19:23] LABS: ARTERIAL BLOOD GAS HCO3 33.5 mmol/L (21-28); ARTERIAL BLOOD GAS PH 7.48 (7.35-7.45)
[2017-05-06] MEDS ORDERED: LAMOTRIGINE 200 MG PO SCH (20:00)
[2017-05-06] MEDS ORDERED: Oxycodone/Acetaminophen 5/325 mg Tab PO PRN (20:02)
--- NOTE | 2017-05-06 20:24 | CT ---
PROCEDURE: CT HEAD WITHOUT CONTRAST. HISTORY: right sided headache COMPARISON: Noncontrast head CT performed 02/17/17 TECHNIQUE: Axial computed tomography images were obtained through the head/brain without intravenous contrast. Radiation dose: Total exam DLP = 1451.69 mGy-cm. This CT exam was performed using one or more of the following dose reduction techniques: Automated exposure control, adjustment of the mA and/or kV according to patient size, and/or use of iterative reconstruction technique. FINDINGS: HEMORRHAGE: No intracranial hemorrhage. BRAIN: Diffuse atrophy with prominence of the ventricles and sulci noted. No mass effect or edema. Scattered periventricular and subcortical white matter hypodensities, which are nonspecific, but often seen with chronic microvascular ischemic disease. Please note that MRI with diffusion imaging is more sensitive in the detection of acute ischemic event. VENTRICLES: No hydrocephalus. CALVARIUM: Unremarkable. PARANASAL SINUSES: Air-fluid levels and opacification diffusely involving all visualized portions of the paranasal sinuses (frontal sinuses, bilateral maxillary sinuses, ethmoid air cells, and sphenoid sinuses). MASTOID AIR CELLS: Opacification/fluid involving the right mastoid air cells. Correlate clinically for otomastoiditis. The left mastoid air cells appear clear. OTHER FINDINGS: None. IMPRESSION: Moderate nonspecific white matter changes. Generalized volume loss. Bilateral arenas sinusitis. Opacification the right mastoid air cells. Correlate clinically for otomastoiditis. Preliminary impression was provided by virtual radiologic.
--- NOTE | 2017-05-06 23:07 | CT ---
EXAM: CT Maxillofacial Sinuses Without Intravenous Contrast CLINICAL HISTORY: 66 years old, female; Pain; Face pain and headache; Type not specified; Additional info: Headache TECHNIQUE: Computed tomography images of the maxillofacial sinuses without intravenous contrast. This CT exam was performed using one or more of the following dose reduction techniques: automated exposure control, adjustment of the mA and/or kV according to patient size, and/or use of iterative reconstruction technique. Coronal and sagittal reformatted images were created and reviewed. COMPARISON: None FINDINGS: Maxillary sinuses: Bilateral air-fluid levels with near complete opacification and mucoperiosteal thickening. Sphenoid sinuses: Bilateral air-fluid levels. Frontal sinuses: Near-complete opacification with air-fluid levels. Ethmoid air cells: Near-complete opacification is identified with extensive mucoperiosteal thickening. Nasal cavity/septum: Deviation of the nasal septum to the patient's left is identified with a prominent nasal spur. Bones/joints: No acute fracture. Soft tissues: Symmetric IMPRESSION: Findings consistent with pansinusitis, as detailed above.
--- NOTE | 2017-05-07 01:10 | HP ---
HISTORY OF PRESENT ILLNESS: The patient is a 66-year-old patient of Dr. Butt who came [facility] because of cough, congestion, headache, stuffy nose, complaint of hoarseness of voice, has b een having fever with chills and cold symptoms. Did not have shortness of breath. Denies any hemopt ysis, no hematemesis. PAST MEDICAL HISTORY: The patient has significant past medical history of: 1. Hypertension. 2. 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 3. History of seizure disorder. 4. Chronic obstructive pulmonary disease. 5. Coronary artery disease. 6. History of hypertension. SOCIAL HISTORY: Denies smoking, drinking or alcohol use. ALLERGIES: She is not allergic to any medication. HOME MEDICATIONS: She is on prednisone 5 mg daily, amlodipine 10 mg daily, potassium 20 mEq daily, l isinopril 20 mg daily, Keppra 500 twice a day, Lamictal 200 twice a day, gabapentin 100 mg 3 times a day, Pepcid 20 mg daily. REVIEW OF SYSTEMS: Complained of cough, congestion, headache and generalized weakness. PHYSICAL EXAMINATION: VITAL SIGNS: She is afebrile. She has temperature 99.2, pulse 103, respirations 18, blood pressure 141/88. LUNGS: Bilateral few expiratory rhonchi. HEART: S1, S2 audible. ABDOMEN: Soft, nontender, no rebound, no guarding. NEUROLOGIC: The patient is awake and alert, poor historian, communicative, answers simple questions. EXTREMITIES: Bilateral leg, no edema. LABORATORY DATA: WBC is 4.7, hemoglobin 11, hematocrit 33, platelet 161. PT 10.7, INR 0.99. Chemis try: Sodium 137, potassium 3.3, chloride 99, CO2 of 32, BUN 15, creatinine 0.7, blood sugar 90. LFT s are within normal limits. LDH is 1020. Troponin 0.03. Urinalysis is negative. Flu test is negat mali. X-ray chest showed right-sided extending to the aortic junction, hyperinflation sec ondary to chronic obstructive pulmonary disease. ASSESSMENT: 1. Upper respiratory symptoms, rule out underlying pneumonia. 2. 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 3. Seizure disorder. 4. Hypertension. 5. Coronary artery disease. 6. Chronic obstructive pulmonary disease. PLAN: I will empirically start her on antibiotic, order for CT scan of the sinus and CT of the chest . We will resume her medication and analgesic as needed. We will reevaluate the patient in a.m. Olivia Ferreira MD cc: [phone] TT: 05/07/2017 01:09:08 mn
[2017-05-07] MEDS: Albuterol-Ipratrop 3 mg / 0.5 (3 ml) UD IH SCH ×4 (02:46→19:40)
[2017-05-07] MEDS: Pantoprazole 40 mg EC Tab PO SCH (06:30)
[2017-05-07 06:41] LABS: ADD MANUAL DIFF? NO
[2017-05-07 06:56] LABS: ALB/GLOB RATIO 1.2 (1.1-1.8); ALKALINE PHOSPHATASE 63 U/L (38-133); ALT/SGPT 40 U/L (7-56); AST/SGOT 45 U/L (15-39); BILIRUBIN,TOTAL 0.9 mg/dL (0.2-1.3); BLOOD UREA NITROGEN 14 mg/dL (7-21); CALCIUM 9.3 mg/dL (8.4-10.5); CARBON DIOXIDE 29 mmol/L (21-33); CHLORIDE 99 mmol/L (98-107); GFR AFRICAN-AMERICAN > 60; GLUCOSE,RANDOM 74 mg/dL (70-110); MAGNESIUM 1.7 mg/dL (1.7-2.2); POTASSIUM 3.6 mmol/L (3.6-5.0); SODIUM 137 mmol/L (132-148); TOTAL PROTEIN 6.6 g/dL (5.8-8.3)
[2017-05-07 07:18] LABS: BASO # 0.01 K/mm3 (0.0-2.0); BASO % 0.2 % (0.0-3.0); EOS % 0.4 % (1.5-5.0); GRAN # 3.85 (1.4-6.5); HEMATOCRIT 35.2 % (36.0-48.0); LYMPH # 0.5 (1.2-3.4); LYMPH % 9.9 % (22.0-35.0); MEAN CELL VOLUME 93.9 fL (80.0-105.0); MEAN CORPUSCULAR HEMOGLOBIN 30.9 pg (25.0-35.0); MONO # 0.6 (0.1-0.6); MONO % 11.5 % (1.0-6.0); PLATELET COUNT 177 10^3/uL (120.0-450.0); RED CELL DISTRIBUTION WIDTH 12.9 % (11.5-14.5); WHITE BLOOD COUNT 4.9 10^3/ul (4.5-11.0)
[2017-05-07] MEDS ORDERED: Potassium Chloride 10 mEq ER Tab PO SCH (10:00)
[2017-05-07] MEDS: Potassium Chloride 20 mEq ER Tab PO SCH (10:38)
[2017-05-07] MEDS: MethylPREDNISolone 40 mg Vial IV SCH ×2 (10:39→22:18)
[2017-05-07] MEDS: cefTRIAXone 1 gm 1 GM/100 ML BAG IVPB SCH (10:40)
[2017-05-07] MEDS: Azithromycin 500MG/NS 250ml 500 MG/250 ML BAG IVPB SCH (10:41)
--- NOTE | 2017-05-07 13:00 | PN ---
DATE: 05/07/2017 SUBJECTIVE: The patient is a 66-year-old, seen and examined, lying in bed. Still has congestion. C omplained of headache, but especially since she coughs. Appetite is fair. PHYSICAL EXAMINATION: VITAL SIGNS: She has temperature 99.6, pulse 116, respirations 20, blood pressure 163/93. LUNGS: Bilateral fair airflow. No expiratory rhonchi. HEART: S1, S2 audible. ABDOMEN: Soft, nontender, no rebound, no guarding. NEUROLOGIC: The patient is awake and alert, communicative. LABORATORY EXAM: WBC is 4.9, hemoglobin 11.6, hematocrit 35.2, platelets 177. Chemistry: Sodium 13 7, potassium 3.6, chloride 99, CO2 29, BUN 14, creatinine 0.7, blood sugar 74. LFTs are within rubia l limits. AST 45. Serology for fluid is negative. Her CT scan of the spine and CT scan of the head positive for white matter changes, generalized volume loss and bilateral pansinusitis, and a prescri ption I will write . ASSESSMENT AND PLAN: 1. Intractable headache because of pansinusitis. 2. Leukocytosis with fever. 3. 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 4. Hypertension. PLAN: The patient is getting nebulizer treatment. We will supplement her potassium. She will maint ain on Keppra and Lamictal. She is on amlodipine. She has been started on Rocephin and Zithromax. She has been started on steroids and Claritin. We will observe for 24 hours. If her headache does n ot improve she might need MRI to see if headache is because of some new mets. I will follow up jeri vasquez in a.m. Olivia Ferreira MD cc: [phone] TT: 05/07/2017 12:59:21 Confirmation # [id number] Dictation # [id number] omayra
--- NOTE | 2017-05-07 22:10 | CARD ---
APPROVED REPORT EKG Measurement Heart [id number] <Conclusion> Sinus tachycardia Minimal voltage criteria for LVH, may be normal variant Borderline ECG
[2017-05-08] MEDS: Albuterol-Ipratrop 3 mg / 0.5 (3 ml) UD IH SCH ×2 (01:42→07:32)
[2017-05-08] MEDS: Pantoprazole 40 mg EC Tab PO SCH (06:29)
[2017-05-08] MEDS: Potassium Chloride 20 mEq ER Tab PO SCH (09:26)
[2017-05-08] MEDS: cefTRIAXone 1 gm 1 GM/100 ML BAG IVPB SCH (09:27)
--- NOTE | 2017-05-08 09:57 | PN ---
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 The patient admitted to the hospital with change in men melly status, headaches. Was found to have pansinusitis and mastoiditis. The patient was complaining of an inability to walk and dizziness, although she does not complain of loss of strength in the uppe r or lower extremities. VITAL SIGNS: The patient is seen today with an elevated blood pressure 157/98, with a heart rate of 129, temperature is 98.6. LABORATORY DATA: Unremarkable. The patient does have a normal CT of the brain. 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 She also is on an ti-seizure medications including Lamictal and Keppra. The patient is also on lisinopril and amlodipi ne for her blood pressure. We will add metoprolol to control heart rate and to decrease her blood pr essure. Will also stop her DuoNeb because of increased heart rate and switch her Solu-Medrol to pred nisone. The patient is on triple antibiotic therapy for her pansinusitis. Physical therapy will srikanth luate the patient for ambulation. 12-POINT REVIEW OF SYSTEMS: Remarkable only for inability to walk and some headaches. PHYSICAL EXAMINATION: GENERAL: Well-developed, well-nourished, but thin black female in no apparent distress. HEENT: Essentially normal. HEART: Sinus tachycardia but regular. CHEST: Clear to auscultation and percussion. ABDOMEN: Benign. EXTREMITIES: Without cyanosis, clubbing or edema. NEUROLOGIC: Grossly intact except for ataxia. IMPRESSION: Severe mastoiditis, pansinusitis, hypertension and supraventricular tachycardia. PLAN: EKG, metoprolol, consultation with her oncologist Dr. Bynum, and possible MRI of the brain t o follow. Alex Butt MD cc: [phone] TT: 05/08/2017 09:55:53 Confirmation # [id number] Dictation # [id number] mn
[2017-05-08] MEDS: Azithromycin 500MG/NS 250ml 500 MG/250 ML BAG IVPB SCH (10:00)
[2017-05-08] MEDS ORDERED: Levalbuterol 0.63 MG/3 ML Inhal Soln UD IH STA (10:07)
--- NOTE | 2017-05-08 10:28 | CP.PCM.PN ---
Subjective - Date & Time of Evaluation Date of Evaluation: 05/08/17 Time of Evaluation: 10:17 - Subjective Subjective: called by nurse to read EKG ordered by pmd for sinus atach. pt has hx of metastatic brain lymphoma and is admitted for uri and weakness. pt states she has lot of phlem and is having difficulty breathing.pt has hx of asthma and was on duo nebs and pmd d/c duoneb due to sinus tach. Objective - Vital Signs/Intake and Output Vital Signs (last 24 hours): Temp Pulse Resp BP Pulse Ox 98.6 F 133 H 18 157/103 H 96 05/08/17 08:28 05/08/17 09:27 05/08/17 08:28 05/08/17 09:27 05/08/17 08:28 Intake and Output: 05/08/17 05/08/17 06:59 18:59 Intake Total 180 Balance 180 - Medications Medications: Current Medications Acetaminophen (Tylenol 325mg Tab) 650 mg PO Q6H PRN PRN Reason: Fever >100.4 F Amlodipine Besylate (Norvasc) 10 mg PO DAILY [facility] Last Admin: 05/08/17 09:26 Dose: 10 mg Ceftriaxone Sodium (Rocephin 1 Gram Ivpb) 1 gm in 100 mls @ 100 mls/hr IVPB DAILY ARVIND PRN Reason: Protocol Last Admin: 05/08/17 09:27 Dose: 100 mls/hr Azithromycin (Zithromax 500mg In Ns) 500 mg in 250 mls @ 167 mls/hr IVPB DAILY ARVIND PRN Reason: Protocol Last Admin: 05/07/17 10:41 Dose: 167 mls/hr Insulin Human Regular (Humulin R Low) 0 units SC ACHS ARVIND PRN Reason: Protocol Lamotrigine (Lamictal) 200 mg PO BID [facility] Last Admin: 05/08/17 09:26 Dose: 200 mg Levetiracetam (Keppra) 500 mg PO BID [facility] Last Admin: 05/08/17 09:26 Dose: 500 mg Lisinopril (Zestril) 20 mg PO DAILY [facility] Last Admin: 05/08/17 09:27 Dose: 20 mg Loratadine (Claritin) 10 mg PO DAILY [facility] Last Admin: 05/07/17 14:42 Dose: 10 mg Metoprolol Succinate (Toprol Xl) 50 mg PO BRK [facility] Ondansetron HCl (Zofran Inj) 4 mg IVP Q6H PRN PRN Reason: Nausea/Vomiting Oxycodone/Acetaminophen (Percocet 5/325 Mg Tab) 1 tab PO Q4H PRN PRN Reason: Pain, moderate (4-7) Stop: 05/09/17 20:03 Last Admin: 05/07/17 10:47 Dose: 1 tab Pantoprazole Sodium (Protonix Ec Tab) 40 mg PO 629 [facility] Last Admin: 05/08/17 06:29 Dose: 40 mg Potassium Chloride (K-Dur 20 Meq Er Tab) 20 meq PO BRK [facility] Last Admin: 05/08/17 09:26 Dose: 20 meq Prednisone (Prednisone Tab) 10 mg PO DAILY [facility] Last Admin: 05/08/17 09:27 Dose: 10 mg - Labs Labs: 05/07/17 06:35 05/07/17 06:35 PT 10.7 Seconds (9.9-11.8) 05/06/17 16:30 INR 0.99 (0.93-1.08) 05/06/17 16:30 APTT 52.6 Seconds (23.7-30.8) H 05/06/17 16:30 - Constitutional Appears: No Acute Distress - Head Exam Head Exam: NORMOCEPHALIC - Eye Exam Eye Exam: Normal appearance - Neck Exam Neck Exam: Full ROM - Respiratory Exam Respiratory Exam: Decreased Breath Sounds - GI/Abdominal Exam GI & Abdominal Exam: Soft, Normal Bowel Sounds - Neurological Exam Neurological Exam: Alert, Awake, CN II-XII Intact, Oriented x3 - Psychiatric Exam Psychiatric exam: Normal Affect - Skin Skin Exam: Dry, Warm Assessment and Plan - Assessment and Plan (Free Text) Assessment: sinus tach acute exacerbation of asthma. Plan: xopenex nebs x1 stat. lopressor 5 mg x1 iv given. t4 tsh.
[2017-05-08] MEDS ORDERED: Metoprolol Succinate 50 mg XL Tab PO STA (10:39)
[2017-05-08] MEDS: Insulin Reg-LOW-Coverage SC SCH ×3 (11:30→22:09)
[2017-05-08 11:36] LABS: HEMATOCRIT 35.6 % (36.0-48.0); MEAN CELL VOLUME 92.2 fL (80.0-105.0); MEAN CORPUSCULAR HEMOGLOBIN 31.3 pg (25.0-35.0); MEAN PLATELET VOLUME 8.3 fl (7.0-11.0); RED CELL DISTRIBUTION WIDTH 12.9 % (11.5-14.5); WHITE BLOOD COUNT 7.4 10^3/ul (4.5-11.0)
[2017-05-08 11:46] LABS: ALB/GLOB RATIO 1.2 (1.1-1.8); ALKALINE PHOSPHATASE 65 U/L (38-133); ALT/SGPT 30 U/L (7-56); AST/SGOT 47 U/L (15-39); BILIRUBIN,TOTAL 0.4 mg/dL (0.2-1.3); BLOOD UREA NITROGEN 28 mg/dL (7-21); CALCIUM 10.1 mg/dL (8.4-10.5); CARBON DIOXIDE 29 mmol/L (21-33); CHLORIDE 99 mmol/L (98-107); GFR AFRICAN-AMERICAN > 60; GLUCOSE,RANDOM 176 mg/dL (70-110); POTASSIUM 4.1 mmol/L (3.6-5.0); SODIUM 137 mmol/L (132-148); TOTAL PROTEIN 6.8 g/dL (5.8-8.3)
[2017-05-08] MEDS ORDERED: Metoprolol 1 mg/ml Inj IVP ONE (12:59)
[2017-05-08] MEDS ORDERED: Sodium Chloride 0.45% 1,000 ML IV ONE (13:21)
[2017-05-08] MEDS ORDERED: Sodium Chloride 0.45% 250 ML IV SCH (13:30)
[2017-05-08] MEDS ORDERED: Sodium Chloride 0.45% 250 ML IV ONE (13:30)
[2017-05-08 14:07] LABS: T4 6.6 ug/dL (5.5-11.0)
[2017-05-08 14:20] LABS: THYROID STIMULATING HORMONE 0.08 mIU/mL (0.46-4.68)
[2017-05-08 21:56] LABS: TROPONIN I 0.03 ng/mL
[2017-05-09] MEDS: Pantoprazole 40 mg EC Tab PO SCH (05:49)
[2017-05-09] MEDS: Insulin Reg-LOW-Coverage SC SCH ×4 (07:30→22:06)
[2017-05-09] MEDS: Potassium Chloride 20 mEq ER Tab PO SCH (08:40)
[2017-05-09] MEDS: Metoprolol Succinate 50 mg XL Tab PO SCH (08:40)
--- NOTE | 2017-05-09 09:19 | CON ---
DATE: 05/08/2017 The patient is in 2R, room 269. 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 At that time, she was having recurrent problems with aspiration, tremendous pain on the right side o f face in the distribution of the trigeminal nerve along with exquisite sensitivity on the roof of th e mouth and on top of her tongue. Completed radiation, has had a gradual improvement. The patient h as had recurrent episodes of aspiration, which have improved with speech therapy and putting her on t hick liquids for eating. The patient has been feeling better, was being assessed as an outpatient fo r further treatments because of her stage IV status. She had a PET/CT scan, which showed some improv ement, but new disease in the form of lymph nodes in the cervical lymph node chain, is now admitted her through the Emergency Room with headache, coughing. The headaches have been progressively worse, hoarse voice, which has worsened. She states she has cold symptoms. Denies shortness of breath. D enies hemoptysis. Reports no facial swelling, no visual difficulties, but has been very unsteady in her gait. PAST MEDICAL HISTORY: Significant for the fact that early of 2015, the patient was diagnosed to have stage IV small-cell lymphocytic lymphoma. She presented with pancytopenia. Bone marrow done, which confirmed it to be lymphoma. The patient was treated with just single agent Rituxan, then added CVP to the regimen. She had a dramatic improvement. Counts normalized. The patient was being followed. The last PET CT was in 07/2016 when there was no evidence of recurre nce of disease. In 10/2016, she was having repeated episodes of aspiration pneumonia. In 11/2016, b ecause of her increasing difficulty with swallowing, aspiration, and numbness on the right side of th e face, she was seen by ENT when an MRI was done, and the MRI confirmed recurrent disease and a mass in the Meckel's cave on the right side extending into the cavernous sinus, and the patient was seen b y neurosurgeon. Since it was in a difficult place to biopsy, the patient was empirically treated wit h radiation, and has since had some significant improvement. The patient has not restarted the treat ments. They was looking into the venues of trying to assess her for medications such as Imbruvica, a nd now she is admitted to the hospital with progressive weakness, dizziness, and what appears to be r ecurrent pansinusitis. The patient also has a history of seizure disorder and history of benign tumor in the brain for which she is on Keppra and Lamictal. The patient also has a history of hypertension. MEDICATIONS: Reviewed. She is on Lamictal 200 b.i.d., Pepcid 20 daily, Norvasc 10 daily. She is on Neurontin 100 t.i.d., Keppra 500 b.i.d., Zestril 20 daily, and potassium chloride 20 mEq p.o. daily. The patient has been having unsteadiness of gait. She has just been recently seen in the office. Ziyad sifuentes is still on prednisone 10 mg a day to help with the lymphoma. REVIEW OF SYSTEMS: The patient has been having increasing congestion in the upper airways related to the pansinusitis. The patient denies any chest pain, palpitations, edema, dyspnea on exertion. The patient denies any back pain. Pain on the right side of the face and over the tongue has improved. PHYSICAL EXAMINATION: GENERAL: The patient is examined in bed. VITAL SIGNS: Stable. T-max is 98.4. Heart rate is still 103, respirations 18, blood pressure 141/8 8. Pulse ox is 100% on room air. HEENT: Head is normocephalic, atraumatic. The patient has palpable right ____ tenderness without er ythema, rash, or lesions. Conjunctivae are pale. Sclerae are anicteric. Pupils are equally reactiv e to light and accommodation. Examination of ENT reveals oropharynx to be clear and symmetric. Muco us membranes are moist, clear nasal discharge. Right tympanic membrane is clear with mild tenderness over the mastoid with edema. No facial swelling, orbital deformities, or bony changes. NECK: Supple. There is no adenopathy. CHEST: The patient has no midline tenderness. CARDIOVASCULAR: Reveals S1 and S2 to be normal. The patient has a systolic ejection murmur. ABDOMEN: The patient has tachycardia. EXTREMITIES: Distal pulses are 2+ and symmetric. LUNGS: Reveal no evidence of respiratory distress. The patient has mild expiratory wheezing. No re traction of the accessory muscles. ABDOMEN: Soft, nondistended. There is no tenderness. No rebound, rigidity, or guarding. BACK: Reveals no CVA tenderness, no midline tenderness. EXTREMITIES: No cyanosis, clubbing, or edema. SKIN: Turgor is normal. No petechia or purpura seen. NEUROLOGIC: The patient is awake, alert, and oriented without any facial droop, slurred speech, or p ronator drift. PSYCHIATRIC: The patient appears tired, but answers questions appropriately. EXTREMITIES: Reveal no cyanosis, clubbing, or edema. The patient's x-rays and labs were reviewed. Chest x-ray shows right-sided MediPort with hyperinflation in the setting of COPD. CT of the head without IV contrast reveals air fluid levels surrounding all the paranasal sinuses con sistent with pansinusitis. There are air fluid levels in the bilateral paranasal sinuses, which are largely ____ fluid. There is no intracranial hemorrhage. LABORATORY DATA: Labs from today were reviewed. White count is 4.7, hemoglobin 11.1, hematocrit 33, platelet count of 161. Sodium is 137. K is 3.3. CO2 is 32. Chloride is 99. BUN is 15, creatinin e 0.7. Blood sugar is 90. ABG shows pH of 7.48. CO2 is 34. O2 is 99.1. AST, ALT, and alkaline ph osphatase are within normal limits. ASSESSMENT NOTES AND PLAN: I will speak to Dr. Butt. My recommendation would be to get ENT to see the patient. The patient is already being shifted to telemetry for monitoring of her tachycardia to make sure she does not have any issues with supraventricular tachycardia. Cardiology is on the c ase. She may need intervention from ENT point of view to see if the sinuses need to be drained, and started on IV antibiotics. Technically speaking, the patient is immunocompromised, on prednisone. S o infectious disease consult will also be appreciated, will speak to ____. Will speak to Dr. Kings garnica and decide accordingly. The patient has been seen by Dr. Prescott and Dr. Israel and their yaya up in the past, and ____ the diagnosis at that time. Routine post exam instructions have been given to the patient. I would reach out to the as well and try to explain to him what her current situation is. Britni Bynum MD cc: [id number] TT: 05/09/2017 09:18:21 Confirmation # [id number] Dictation # [id number] jn
[2017-05-09] MEDS: cefTRIAXone 1 gm 1 GM/100 ML BAG IVPB SCH (10:41)
--- NOTE | 2017-05-09 10:47 | PN ---
DATE: 05/09/2017 SUBJECTIVE: A 66-year-old black female, seizure disorder, lymphoma, metastatic to the brain, admitte d to the hospital with pansinusitis and mastoiditis, headache. The patient also is hypertensive and tachycardic, better today with 151/92 and the pulse of 94. She has been started on metoprolol. She is on IV antibiotics, bronchodilators, on some steroids and blood pressure medication. She is also o n her anti-seizure medication, waiting on consultation with Dr. Bynum. Plan is to continue IV anti biotics and control her blood pressure and heart rate. Alex Butt MD cc: [id number] TT: 05/09/2017 10:46:34 Confirmation # [id number] Dictation # [id number] tn
[2017-05-09] MEDS: Azithromycin 500MG/NS 250ml 500 MG/250 ML BAG IVPB SCH (11:52)
--- NOTE | 2017-05-09 16:44 | CON ---
DATE: 05/09/2017 REASON FOR CONSULTATION: Sinus tachycardia. HISTORY OF PRESENT ILLNESS: The patient is a 66-year-old -German female who has stage IV ly mphoma treated with whole brain radiation with subsequent improvement. The patient has right-sided _ ____ neurologia and was treated for aspiration recently. The patient had improvement of her speech t herapy and is tolerating liquid diet. The patient has a history of hypertension, seizure disorder, c hronic obstructive lung disease, coronary artery disease, and was admitted initially for cough, conge stion, headache, stuffy nose, as well as hoarseness of voice. The patient was noted to be tachycardi c and was transferred to telemetry. The patient denies any chest pain at this time. SOCIAL HISTORY: Nonsmoker, nondrinker. MEDICATIONS: Claritin 10 mg once a day, K-Dur 20 mEq once a day, Keppra 500 mg once a day, Lamictal 200 mg twice a day, Norvasc 10 mg once a day, prednisone 10 mg once a day, Protonix 40 mg p.o. once a day, Rocephin 1 gram intravenously daily, Toprol-XL 50 mg once a day, Zestril 20 mg once a day, Zith romax 500 mg intravenously daily, Zofran 4 mg intravenously q. 6 hours p.r.n. REVIEW OF SYSTEMS: The patient complains of hoarseness of voice, cough, congestion. She denies any diarrhea. No fever or chills. PHYSICAL EXAMINATION: GENERAL: The patient is an elderly female who does not appear to be in any acute distress. VITAL SIGNS: Blood pressure 162/92, heart rate 109, temperature 97.9, respirations 20. HEENT: No pallor. NECK: No JVD. CHEST: Clear. CHEST: Bilateral rhonchi. HEART: S1, S2 regular. ABDOMEN: Soft. EXTREMITIES: No edema. LABORATORY DATA: Hemoglobin and hematocrit 12.1 and 35.6, white count and platelet count are within normal limit. Troponin 0.03. SMA-7: Sodium 137, potassium 4.1, chloride 99, CO2 of 29, glucose 176 , BUN 28, creatinine 0.9. PT 10.7, PTT 52.6. Initial EKG on admission revealed sinus tachycardia at 302. Minimal voltage criteria for LVH. Echocardiographic study performed in October of last year revealed an ejection fraction at 65%-70%. A urine culture is positive for gram-positive cocci. Blood cultures negative after 48 hours. ASSESSMENT: 1. Sinus tachycardia. 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 3. History of seizure disorder. 4. Hypertension. 5. Chronic obstructive lung disease. 6. History of coronary artery disease. 7. History of recent aspiration. 8. Rule out mastoiditis. RECOMMENDATIONS: Continue Norvasc 10 mg once a day, prednisone 10 mg once a day, Toprol-XL at 50 mg once a day, Vistaril at 20 mg once a day, IV Zithromax at 500 mg daily. I did review the chest x-ray on admission, which was unremarkable except for the presence of Port-A-Cath. Sinus CT scan without contrast findings were consistent with pansinusitis. No further cardiac workup is indicated at this time. Kendell Barrera MD cc: [id number] TT: 05/09/2017 16:43:44 Confirmation # [id number] Dictation # [id number] mn
--- NOTE | 2017-05-09 18:00 | CARD ---
APPROVED REPORT EKG Measurement Heart [id number] CO [id number] [id number] <Conclusion> Sinus tachycardia Moderate voltage criteria for LVH, may be normal variant Borderline ECG
--- NOTE | 2017-05-10 00:23 | PN ---
DATE: 05/09/2017 The patient is in room 261, bed 1. REASON FOR FOLLOWUP AND CONSULTATION: The patient has stage IV small cell lymphocytic lymphoma admit lópez to the hospital with unsteady gait, hypertension and tachycardia and findings of pansinusitis, cu rrently on IV antibiotics and being seen by cardiology as well. The patient is 66 years old with a d iagnosis of stage IV lymphoma that was initially treated with systemic chemotherapy with Rituxan, fol lowed by Rituxan CVP, went into complete remission 07/2016. A PET CT was normal. In 11/2016, the mike nath had recurrence of disease manifesting itself with recurrent episodes of aspiration pneumonia an d difficulty swallowing, along with numbness and pain distributed along the distribution of the right trigeminal nerve. The patient received radiation to the face including the tumor that was extending into the Meckel's cave and into the cavernous sinus on the right side. The patient has improvements . The patient secondary to speech therapy has been tolerating liquid diet. The patient has a histor y of hypertension, seizure disorder, chronic obstructive lung disease, coronary artery disease, was i nitially admitted for cough, congestion, headaches, stuffy nose, status post . The patient cont inues to be tachycardic, but otherwise appears to be improved. CURRENT MEDICATIONS: Include Claritin 10 once a day, K-Dur 20 once a day, Keppra 500 once a day, Singh ictal 200 b.i.d., Norvasc 10 mg once a day, prednisone 10 mg a day, Protonix 40 mg once a day, Roceph in 1 gram IV daily along with Toprol-XL once daily, Zestril 20 mg daily, Zithromax 500 mg intravenous ly daily and Zofran 4 mg IV q. 6 hours p.r.n. REVIEW OF SYSTEMS: The patient still complains of hoarseness of voice, congestion. Denies any histo ry of fever or colitis. PHYSICAL EXAMINATION: GENERAL: The patient is an elderly female lying in bed. She appears to be in no acute distress. VITAL SIGNS: Stable. Blood pressure is 162/92, heart rate is 109, T-max is 98.4, respirations 20. HEENT: Head is normocephalic, atraumatic. Conjunctivae pale. Sclerae are anicteric. Pupils are eq ually reactive to light and accommodation. Examination of the oropharynx, reveals no oropharyngeal l esions. LUNGS: Relatively clear to percussion and auscultation with bilateral rhonchi noted posteriorly. ABDOMEN: Soft, nontender. Bowel sounds are present. EXTREMITIES: Reveals no cyanosis, clubbing or edema. LABORATORY DATA: Today reveals a hemoglobin of 12.1, hematocrit 36, white count and platelet count a re within normal limits. Troponin 0.03. SMA-7 reveals sodium of 137, K of 4.1, chloride 96, CO2 of 29, glucose is 176, BUN of 28, creatinine 0.9. PT/INR normal. EKG shows sinus tachycardia at rate o f 300. EKG performed, echocardiography performed in 10/2016 showed an ejection fraction of 65%-70%. Urine culture is positive for gram-positive cocci. Blood cultures have been negative at 48 hours. ASSESSMENT NOTES AND PLAN: The patient has tachycardia, small cell lymphocytic lymphoma, exten ded brain metastasis, she has seizure disorder, hypertension, chronic obstructive pulmonary disease, history of coronary artery disease, history of recent aspiration. Rule out pansinusitis based on the CAT scan. RECOMMENDATIONS: Continue the Norvasc, prednisone, Toprol-XL, . The patient is also on IV Zith romax. Probably would continue the Rocephin also. We will review the sinus CT with the radiologist and then get in touch with the PMD. We will also reach out to the dental hygiene teacher, Dr. Perez, to help ou t with the management of this patient. Routine post exam instructions have been given to the patient . Labs have been drawn for the a.m. Britni Bynum MD cc: [id number] TT: 05/10/2017 00:23:11 Confirmation # [id number] Dictation # [id number] mn
[2017-05-10] MEDS: Piperacillin/Tazobact 3.375 gm 100 ML IVPB SCH ×4 (02:12→18:39)
[2017-05-10] MEDS: Pantoprazole 40 mg EC Tab PO SCH (06:51)
[2017-05-10] MEDS: Insulin Reg-LOW-Coverage SC SCH ×4 (07:51→22:10)
--- NOTE | 2017-05-10 08:54 | PN ---
DATE: 05/10/2017 A 66-year-old black female, seizure disorder, lymphoma with mets to the [employer]AM [employer], presenting with pansinus itis. The patient also complained today of some cough and sputum production without any difficulty s wallowing. The patient has had some dysphagia in the past. The patient is seen. She is somewhat co nfused today as far as identifying myself as a person she knows. Her vital signs are stable. Her la boratory data are unremarkable. She does have some wheezing in the bilateral lung crespo. We will s tart patient on DuoNeb and also do a chest x-ray and something for cough. PHYSICAL EXAMINATION: HEART: Regular sinus rhythm. VITAL SIGNS: Blood pressure is improved down to 137/ and the heart rate is down to 97 which is improved from before. Vital signs are stable. PLAN: To continue IV antibiotics, bronchodilators. Chest x-ray and cough suppressant. Alex Butt MD cc: [id number] TT: 05/10/2017 08:53:36 Confirmation # [id number] Dictation # [id number]
[2017-05-10] MEDS: Potassium Chloride 20 mEq ER Tab PO SCH (09:28)
[2017-05-10] MEDS: Metoprolol Succinate 50 mg XL Tab PO SCH (09:29)
[2017-05-10] MEDS: Azithromycin 500MG/NS 250ml 500 MG/250 ML BAG IVPB SCH (09:30)
[2017-05-10] MEDS: guaiFENesin DM 100 mg-10 mg/5 ml UD PO PRN (09:42)
--- NOTE | 2017-05-10 10:46 | CP.PCM.CON ---
History of Present Illness - History of Present Illness History of Present Illness: 66 year old female with PMH of ventilator-dependent respiratory failure with healthcare-associated pneumonia, with risk for fungal infection, S/P neutropenia , lymphoma on chemotherapy and radiotherapy, asthma, history of left pyelonephritis, seizures, cataracts, asthma was brought in to [facility] because of facial pain, headache and dry cough for the past week. She denies rhinorrhea, no dizziness, occasional pain in the ears, no sore throat, no fever or chills, no chest pain, no SOB, no abdominal pain, no diarrhea, no dysuria. CT of the sinuses has been done which is showing raenas-sinusitis. Infectious Diseases consult is requested to further evaluate and manage. Review of Systems - Review of Systems All systems: reviewed and no additional remarkable complaints except (as per HPI ) Past Patient History - Infectious Disease Hx of Infectious Diseases: None - Past Medical History & Family History Past Medical History?: Yes - Past Social History Smoking Status: Never Smoked - CARDIAC Hx Cardiac Disorders: Yes Hx Hypertension: Yes - PULMONARY Hx Chronic Obstructive Pulmonary Disease (COPD): Yes - NEUROLOGICAL Hx Neurological Disorder: Yes (BRAIN AND NECK MASS-BRAIN CA WITH RADIATION) HX Cerebrovascular Accident: No Hx Dizziness: Yes (SYNCOPE) - HEENT Hx HEENT Problems: Yes Hx Cataracts: Yes (bilateral) - RENAL Hx Pyelonephritis: Yes Hx Renal Failure: No - ENDOCRINE/METABOLIC Hx Diabetes Mellitus Type 1: No Hx Diabetes Mellitus Type 2: No Hx Hypothyroidism: No - HEMATOLOGICAL/ONCOLOGICAL Hx Cancer: Yes (Brain) - INTEGUMENTARY Hx Dermatological Problems: No - MUSCULOSKELETAL/RHEUMATOLOGICAL Hx Falls: Yes - GASTROINTESTINAL Hx Gastroesophageal Reflux: Yes - GENITOURINARY/GYNECOLOGICAL Hx Genitourinary Disorders: Yes (HYSTERECTOMY) Hx Incontinence: Yes - PSYCHIATRIC Hx Substance Use: No - SURGICAL HISTORY Hx Hysterectomy: Yes Other/Comment: Port in R chest - ANESTHESIA Hx Anesthesia: Yes Hx Anesthesia Reactions: No Hx Malignant Hyperthermia: No Meds Allergies/Adverse Reactions: Allergies Allergy/AdvReac Type Severity Reaction Status Date / Time No Known Allergies Allergy Verified 05/06/17 15:45 - Medications Medications: Current Medications Acetaminophen (Tylenol 325mg Tab) 650 mg PO Q6H PRN PRN Reason: Fever >100.4 F Amlodipine Besylate (Norvasc) 10 mg PO DAILY ARVIND Last Admin: 05/09/17 10:41 Dose: 10 mg Azithromycin (Zithromax 500mg In Ns) 500 mg in 250 mls @ 167 mls/hr IVPB DAILY [facility] PRN Reason: Protocol Last Admin: 05/09/17 11:52 Dose: 167 mls/hr Piperacillin Sod/Tazobactam Sod (Zosyn 3.375 In Ns 100ml) 100 mls @ 200 mls/hr IVPB Q6 ARVIND PRN Reason: Protocol Stop: 05/18/17 00:01 Insulin Human Regular (Humulin R Low) 0 units SC ACHS ARVIND PRN Reason: Protocol Last Admin: 05/09/17 22:06 Dose: Not Given Lamotrigine (Lamictal) 200 mg PO BID [facility] Last Admin: 05/09/17 17:42 Dose: 200 mg Levetiracetam (Keppra) 500 mg PO BID [facility] Last Admin: 05/09/17 17:42 Dose: 500 mg Lisinopril (Zestril) 20 mg PO DAILY [facility] Last Admin: 05/09/17 10:42 Dose: 20 mg Loratadine (Claritin) 10 mg PO DAILY [facility] Last Admin: 05/09/17 10:40 Dose: 10 mg Metoprolol Succinate (Toprol Xl) 50 mg PO K [facility] Last Admin: 05/09/17 08:40 Dose: 50 mg Ondansetron HCl (Zofran Inj) 4 mg IVP Q6H PRN PRN Reason: Nausea/Vomiting Last Admin: 05/09/17 14:11 Dose: 4 mg Pantoprazole Sodium (Protonix Ec Tab) 40 mg PO 0630 [facility] Last Admin: 05/09/17 05:49 Dose: 40 mg Potassium Chloride (K-Dur 20 Meq Er Tab) 20 meq PO BRK [facility] Last Admin: 05/09/17 08:40 Dose: 20 meq Prednisone (Prednisone Tab) 10 mg PO DAILY [facility] Last Admin: 05/09/17 10:41 Dose: 10 mg Physical Exam - Constitutional Appears: Non-toxic, No Acute Distress - Head Exam Head Exam: NORMAL INSPECTION - ENT Exam Additional comments: mild tenderness over the frontal area - Neck Exam Neck exam: Negative for: Lymphadenopathy, Meningismus - Respiratory Exam Respiratory Exam: Decreased Breath Sounds - Cardiovascular Exam Cardiovascular Exam: +S1, +S2 - GI/Abdominal Exam GI & Abdominal Exam: Soft. absent: Tenderness Results - Vital Signs Recent Vital Signs: Last Vital Signs Temp 97.1 F L 05/09/17 18:00 Pulse 88 05/09/17 22:00 Resp 20 05/09/17 18:00 BP 133/82 05/09/17 18:00 Pulse Ox 97 05/09/17 06:00 - Labs Result Diagrams: 05/08/17 11:30 05/08/17 11:30 Labs: Laboratory Results - last 24 hr 05/08/17 05/09/17 05/09/17 21:53 07:15 11:04 POC Glucose (mg/dL) 177 H 85 115 H 05/09/17 05/09/17 16:02 21:43 POC Glucose (mg/dL) 135 H 120 H Assessment & Plan - Assessment and Plan (Free Text) Plan: Assessment Acute arenas-sinusitis with associated bilateral otomastoiditis history of ventilator-dependent respiratory failure from healthcare-associated pneumonia history of chemotherapy-associated neutropenia lymphoma on chemo and radiotherapy asthma history of left pyelonephritis seizures cataracts asthma Plan started patient on Zosyn and will monitor clinical response will follow clinically
--- NOTE | 2017-05-10 12:22 | PN ---
DATE: 05/10/2017 The patient denies any palpitation, shortness of breath or chest pain. PHYSICAL EXAMINATION: VITAL SIGNS: Blood pressure 140/97, heart rate 115, temperature 98.4, respiration 19. The patient i s in sinus tachycardia on the monitor HEENT: Normocephalic. CHEST: Clear. HEART: S1, S2 regular. ABDOMEN: Soft. EXTREMITIES: Significant muscle wasting. LABORATORIES: Today's blood sugar is 89. Chest x-ray performed today was unremarkable. A Port-A-Cath is noted. Blood culture is negative after 3 days. ASSESSMENT: 1. Sinus tachycardia. 2. ____ cell lymphoma with brain metastasis. 3. Hypertension. 4. History of seizure disorder. 5. Sinusitis. 6. Hypertension. 7. Urinary tract infection. RECOMMENDATIONS: Continue current K-Dur 20 mEq once a day, Keppra 500 mg once a day, Lamictal 200 mg twice a day, Norvasc 10 mg once a day, Toprol XL 50 mg once a day, Zestril 20 mg once a day. I will obtain BNP and CBC in a.m. The clinical picture does not suggest a pericardial effusion at th is time, and I will hold on repeating a transthoracic echocardiograph study. Kendell Barrera MD cc: [id number] TT: 05/10/2017 12:22:08 Confirmation # [id number] Dictation # [id number] omayra
--- NOTE | 2017-05-10 12:28 | RAD ---
HISTORY: Cough COMPARISON: 05/06/2017 TECHNIQUE: Chest PA and lateral FINDINGS: The right MediPort terminates at the cavoatrial junction. LUNGS: The lungs are well inflated and clear. PLEURA: No significant pleural effusion identified. No pneumothorax apparent. CARDIOVASCULAR: Normal. OSSEOUS STRUCTURES: Within normal limits for the patient's age. VISUALIZED UPPER ABDOMEN: Normal. OTHER FINDINGS: None. IMPRESSION: No active pulmonary disease.
[2017-05-10] MEDS: Albuterol-Ipratrop 3 mg / 0.5 (3 ml) UD IH SCH ×2 (13:53→19:24)
[2017-05-10] MEDS: Oxymetazoline 0.05% Nasal Spray (30 ml) NS SCH (18:38)
[2017-05-10] MEDS: Fluticasone Nasal 50 mcg/Spray NS SCH (18:40)
[2017-05-11] MEDS: Piperacillin/Tazobact 3.375 gm 100 ML IVPB SCH ×4 (00:05→17:47)
[2017-05-11] MEDS: Albuterol-Ipratrop 3 mg / 0.5 (3 ml) UD IH SCH ×4 (01:12→19:23)
[2017-05-11] MEDS: Pantoprazole 40 mg EC Tab PO SCH (05:48)
[2017-05-11 06:08] LABS: HEMATOCRIT 37.5 % (36.0-48.0); MEAN CELL VOLUME 93.1 fL (80.0-105.0); MEAN CORPUSCULAR HEMOGLOBIN 31.3 pg (25.0-35.0); MEAN CORPUSCULAR HGB CONC 33.6 g/dl (31.0-37.0); MEAN PLATELET VOLUME 8.4 fl (7.0-11.0); RED CELL DISTRIBUTION WIDTH 12.9 % (11.5-14.5); WHITE BLOOD COUNT 4.6 10^3/ul (4.5-11.0)
[2017-05-11 06:21] LABS: BLOOD UREA NITROGEN 21 mg/dL (7-21); CALCIUM 9.6 mg/dL (8.4-10.5); CARBON DIOXIDE 31 mmol/L (21-33); CHLORIDE 101 mmol/L (98-107); GFR AFRICAN-AMERICAN > 60; GLUCOSE,RANDOM 91 mg/dL (70-110); POTASSIUM 3.2 mmol/L (3.6-5.0); SODIUM 140 mmol/L (132-148)
[2017-05-11] MEDS: Insulin Reg-LOW-Coverage SC SCH ×4 (08:00→22:35)
--- NOTE | 2017-05-11 08:17 | PN ---
DATE: 05/10/2017 This is the patient's hospital visit on the telemetry floor. For Dr. Bynum. SUBJECTIVE: The patient is a 66-year-old female, seen lying awake in bed. She sees Dr. Bynum for stage IV small-cell lymphocytic lymphoma, recently admitted for pansinusitis, hypertension and eventu ally diagnosed with mastoiditis. Now seen by the ear, nose and throat specialist with infectious dis ease consultants. 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 She also suffers from seizure disorder, with significant tachycardia on admission. Now the patient is r esting comfortably. PHYSICAL EXAMINATION: VITAL SIGNS: Temperature 98.1, pulse 111, respirations 19, blood pressure 147/103, pulse ox of 99%. HEENT: Tenderness to gentle palpation on the right side of her face. NECK: Supple. HEART: Tachy rate, regular rhythm. LUNGS: Clear. ABDOMEN: Soft, nontender. EXTREMITIES: No edema. Decreased strength. NEUROLOGIC: Awake and alert. SKIN: Warm and dry. LABORATORY DATA: Labs were done 2 days ago and we will check them tomorrow. She had a nonfasting gl ucose of 163 done earlier today. The patient had a chest x-ray done earlier today. It was read as no active pulmonary disease. with a CT scan of her sinuses done 05/06 showing pansinusitis. ASSESSMENT: Mastoiditis/pansinusitis, tachydysrhythmia, stage IV small-cell lymphocytic lymphoma wit h mass to the right, Meckel's cave/trigeminal nerve, seizure disorder, gait disturbance, questionable brain metastases, hypertension, chronic obstructive pulmonary disease, arteriosclerotic vascular hea rt disease, recent aspiration pneumonia. PLAN: The patient is to continue the present medical regimen as per Dr. Bynum along with Dr. Nehal mahan and Dr. Mortensen with IV antibiotics as indicated, continuation of her anti-seizure medication wit h labs to be monitored in the morning. Raheel Aguilar CHAMBERLAIN cc: [phone] TT: 05/10/2017 21:49:16 Confirmation # [id number] Dictation # [id number] mn
[2017-05-11] MEDS: Potassium Chloride 20 mEq ER Tab PO SCH (08:41)
[2017-05-11] MEDS: Metoprolol Succinate 50 mg XL Tab PO SCH (08:41)
--- NOTE | 2017-05-11 08:54 | PN ---
DATE: 05/11/2017 SUBJECTIVE: A 66-year-old black female with history of lymphoma was seen ____ history of seizure dis order, hypertension, tachycardia, was admitted to the hospital with pansinusitis, on IV antibiotics. The patient still does have persistent cough. Chest x-ray was clear. LABORATORY DATA: Unremarkable. The patient does complain of being confused and disoriented today, not knowing the day or the place. The patient will be sent for MRI of the brain with contrast. She will continue on her IV antibiotic s because of the pansinusitis. As stated, chest x-ray was clear. PHYSICAL EXAMINATION: VITAL SIGNS: She is afebrile today. Heart rate is slightly elevated at 110. Blood pressure 147/103 . GENERAL: Awake and alert, however, slightly disoriented today. NEUROLOGIC: Otherwise, grossly intact. Cranial nerves II through X are intact. There is no change in her strength in the upper and lower extremities. There is no change in sensation. Babinskis are downgoing bilaterally. The patient is tolerating her diet and continuing on her nebulizer treatment and IV antibiotics. Nancy andrade is for an MRI of the brain. Alex Butt MD cc: [phone] TT: 05/11/2017 08:53:49 Confirmation # [id number] Dictation # [id number] fabiola
[2017-05-11] MEDS: Fluticasone Nasal 50 mcg/Spray NS SCH ×2 (09:13→17:52)
[2017-05-11] MEDS: Oxymetazoline 0.05% Nasal Spray (30 ml) NS SCH ×2 (09:13→17:52)
--- NOTE | 2017-05-11 11:03 | CON ---
DATE: 05/10/2017 REASON FOR CONSULTATION: Mastoiditis and pansinusitis. HISTORY OF PRESENT ILLNESS: The patient is a 66-year-old female with a past medical history of vent- dependent respiratory failure, healthcare-associated pneumonia, history of fungal infections, neutrop enia, lymphoma on chemo and radiotherapy, asthma, history of left pyelonephritis, seizures, cataract, brought to [facility] due to facial pain, headache, and dry cough for over a week. The patient denied any rhinorrhea or green discharge at that time, dizziness. The patient did have some occasional pain in her ears as reported by the ED, but no sore throat, no fevers, no chills, no chest pain or shortn ess of breath. In the ED, the patient had CT of the head as well as CT of the sinuses showing some f luid in the mastoid air cells with no bony destruction. The patient also on CT scan was noted to hav e pansinusitis. ENT consult was to evaluate. The patient was seen and examined. The patient denied chest pain, shortness of breath, nausea, vomiting or diarrhea, fevers, night sweats. The patient cu rrently denies ear pain or ear discharge. The patient also denies pain of her ____, says the pain young s resolved. The patient also denies at this time ringing of the ears, hearing loss, acute change in her vision. VITAL SIGNS: ____ 97.1, pulse of 88, respiratory rate 20, blood pressure 133/____, pulse ox 97%. LABORATORY DATA: Most recent lab on 05/08, white count 7.4, hemoglobin 12.1, hematocrit 35.6, platele ts 188. Sodium 137, potassium 4.1, chloride 99, CO2 of 29, BUN 28, creatinine 0.9, glucose 176, ____ . MEDICATIONS: Lamictal, Keppra, Zestril. ____. Loratadine, metoprolol, Protonix and prednisone mesfin y. PHYSICAL EXAMINATION: GENERAL: Alert and oriented x 3, in no acute mary carmen. EYES: EOMI, PERRLA. MOUTH: Moist mucous membranes. Poor dentition. Symmetric palate elevation. NECK: Trachea is midline. No tenderness to palpation. No neck masses. RESPIRATORY: Aerating well. No stridor. Nonlabored breathing. EARS: Bilateral ear canals clear. TMs intact. No pain with manipulation of the auricles bilaterall y. No tenderness over the mastoid tip. No fluid draining from the ears, no otorrhea. NOSE: The patient was decongested with topical Afrin and lidocaine. ____ advanced into the right na ris, examined. Some slight white, sticky discharge noted around the right maxillary sinus. Cultures taken. No drainage or other purulent drainage noted in the right naris. Scope was then placed into the left naris and examined. No purulent drainage, no other abnormality of the naris. RADIOLOGY: CT of the sinuses from 05/06/2017: Maxillary sinuses, bilateral air-fluid levels with ne ar opacification, ____ thickening, sphenoid sinuses bilateral air-fluid levels, frontal sinuses near complete opacification with air-fluid levels. Ethmoid air cells near complete opacification with ext ensive mucoperiosteal thickening. Nasal septum: Deviated septum to the left, read by Dr. Piña ____. ASSESSMENT AND PLAN: 1. A 66-year-old female with a history of lymphoma and currently on prednisone with pansinusitis and fluid in the mastoid air cells, currently being followed by infectious diseases 2. The patient is currently on Zosyn with improved clinical response to therapy. Recommend continui ng monitoring the patient's vitals, white count and clinical response, antibiotics per infectious dis ease at this time. The patient not currently on nose sprays. Recommend the patient start on nasal s yane sprays q. 4 hours as a standing order to both nares to rinse out the sinuses. 3. Recommend placing patient on Afrin nasal spray b.i.d. to both nares for a total of 3 days only, d o not exceed 3 days. 4. Recommend placing patient on Flonase nasal spray 2 sprays to each naris b.i.d. Recommend medical management per the medical team. Henri Gee DO cc: [id number] TT: 05/11/2017 11:02:17 Confirmation # [id number] Dictation # [id number] tn
--- NOTE | 2017-05-11 11:36 | PN ---
DATE: 05/11/2017 The patient experienced a cough while eating and at times choking. She is experiencing hoarseness of voice. PHYSICAL EXAMINATION: VITAL SIGNS: Blood pressure 136/90, heart rate 125, temperature 98.6, respirations 20. HEENT: No pallor. NECK: No JVD. CHEST: Clear. HEART: S1, S2 regular. EXTREMITIES: Significant muscle wasting. LABORATORIES: Today's CBC is entirely within normal limits. Today's SMA-7 is within normal limits e xcept for potassium 3.2. ASSESSMENT: 1. Central nervous system lymphoma. 2. Sinus tachycardia. 3. Seizure disorder. 4. Sinusitis. 5. Rule out aspiration. 6. Hypokalemia. RECOMMENDATIONS: K-Dur 20 mEq orally daily was started today. Continue Norvasc at 10 mg once a day, prednisone 10 mg once a day, Toprol-XL at 50 mg once a day, Zestril at 20 mg once a day, Zosyn 3.375 grams intravenously q. 6 hours. I recommended a swallow evaluation. Kendell Barrera MD cc: [id number] TT: 05/11/2017 11:35:18 Confirmation # [id number] Dictation # [id number] en
--- NOTE | 2017-05-11 16:14 | PN ---
DATE: 05/11/2017 The patient seen in bed in no acute distress, nontoxic. PHYSICAL EXAMINATION: VITAL SIGNS: Temperature is 98, blood pressure is 140/90, respiratory rate of 18, heart rate of 115. HEENT: Unremarkable. NECK: Supple. LUNGS: Decreased breath sounds. HEART: Normal S1, S2. ABDOMEN: Soft, nontender. LABORATORY EXAMINATION: Reveals a white count of 4.6, hemoglobin of 12, platelets of 175. Coagulati on is noted. BUN of 21. Creatinine is 0.9. Urinalysis, influenza is negative. Microbiology reveal s ____ gram-positive cocci. Review of orders reveals the patient to be on Zosyn and prednisone. Dr. Gee's consultation is re viewed. ASSESSMENT AND PLAN: A 66-year-old female with acute pansinusitis, associated bilateral otomastoidit is and history of chemotherapy and associated neutropenia with a history of lymphoma. On chemotherap y and radiation, on Zosyn. We will follow clinical response. The patient with poor performance stat us. Jose Suh MD cc: [phone] TT: 05/11/2017 16:13:53 Confirmation # [id number] Dictation # [id number] sn
--- NOTE | 2017-05-11 18:30 | PN ---
DATE: 05/11/[address] Bynum. SUBJECTIVE: The patient is a 66-year-old female seen sitting up in bed having her lunch. Admitted f or pansinusitis, known to have a stage IV small cell lymphocytic lymphoma with mass to the right Meck el cave, trigeminal nerve, with mastoiditis on that side. She is otherwise resting comfortably with IV antibiotics being given as per Dr. Suh and Dr. Jenkins. Otherwise without complaint. Seen b y ear, nose and throat specialist earlier today. OBJECTIVE: PHYSICAL EXAMINATION: VITAL SIGNS: Temperature 98.6, pulse was 117, respirations 16, blood pressure 144/79, pulse ox of 96 %. HEENT: Unremarkable. NECK: Supple. HEART: Tachy rate, regular rhythm. LUNGS: Clear. ABDOMEN: Soft. EXTREMITIES: No edema. SKIN: Warm, dry, and clear. NEUROLOGIC: Awake and alert. LABORATORY DATA: The patient's labs were done. White blood cell count of 4.6, hemoglobin 12.6, morgan tocrit 37.5, platelet count 175,000. A chem metabolic panel showing a potassium of 3.2, otherwise no rmal chem metabolic panel. The patient's urine culture was positive for gram-positive cocci 3 days prior. ASSESSMENT: Pansinusitis, mastoiditis on the right, tachydysrhythmia, stage IV small cell lymphocyti c lymphoma, mass to right Meckel's cave, trigeminal nerve, seizure disorder, gait disturbance, hypert ension, chronic obstructive pulmonary disease, arteriosclerotic cardiovascular disease. PLAN: For this patient is to continue present medical regimen. Will monitor clinically and with lab s. Prognosis for this patient is guarded. Raheel Sheikh MD cc: [phone] TT: 05/11/2017 18:29:50 Confirmation # [id number] Dictation # [id number] dn
[2017-05-12] MEDS: Albuterol-Ipratrop 3 mg / 0.5 (3 ml) UD IH SCH ×4 (01:24→20:06)
[2017-05-12] MEDS: Piperacillin/Tazobact 3.375 gm 100 ML IVPB SCH ×5 (06:39→23:30)
[2017-05-12] MEDS: Pantoprazole 40 mg EC Tab PO SCH (07:06)
[2017-05-12] MEDS: Insulin Reg-LOW-Coverage SC SCH ×4 (08:47→22:10)
[2017-05-12] MEDS: Potassium Chloride 20 mEq ER Tab PO SCH (09:02)
[2017-05-12] MEDS: Metoprolol Succinate 50 mg XL Tab PO SCH (09:02)
--- NOTE | 2017-05-12 10:11 | PN ---
DATE: 05/12/2017 A 66-year-old black female with lymphoma with [employer] mets, history of seizure disorder for multiple year s, hypertension, tachyarrhythmia. The patient admitted to the hospital with pansinusitis. She has b een on IV antibiotics. Blood cultures have been negative except for gram-positive cocci in the urine . LABORATORY DATA: Unremarkable. H and H are within normal limits. Platelet count is normal. Influe nza is negative. Chemistries within normal limits. Blood sugars are controlled. The patient has had a history of tachyarrhythmia and hypertension. VITAL SIGNS: Her recent vital signs have improved. She has 144/80 and heart rate of 108. She is af ebrile. The patient is scheduled for an MRI of the brain which has not been done at this point; still awaitin g that. Otherwise, the patient is still complaining of some difficulty swallowing and cough, but faizan st x-ray was negative. She has had a history of some difficulty swallowing in the past. Has had eso phagrams and ENT evaluation in the past. The patient is not complaining of any severe headaches but some head congestion. IMPRESSION: Pansinusitis in the elderly black female with seizure disorder and lymphoma. Awaiting M RI of the brain. Alex Butt MD cc: [id number] TT: 05/12/2017 08:27:01 Confirmation # [id number] Dictation # [id number] fabiola
--- NOTE | 2017-05-12 10:57 | PN ---
DATE: 05/12/2017 The patient is in bed, in no acute distress, nontoxic. No fevers and chills. PHYSICAL EXAMINATION: VITAL SIGNS: Temperature is 97, blood pressure is 150/60, respiratory rate of 18, a heart rate of 10 5. HEENT: Unremarkable. NECK: Supple. LUNGS: Have decreased breath sounds. HEART: Normal S1, S2. ABDOMEN: Soft, nontender. LABORATORY EXAMINATION: Reveals a white count of 4.6, hemoglobin of 12. Chemistries are noted. BUN of 21, creatinine of 0.9. Urinalysis is noted. Serology is noted. Microbiology is noted. Review of orders reveals the patient to be on prednisone and Zosyn. An MRI of the head is ordered by Dr. Butt. It is pending. Dr. Butt's note from this morning is reviewed. ASSESSMENT AND PLAN: A 66-year-old female with acute pansinusitis and associated bilateral otomastoi ditis and history of chemotherapy associated with neutropenia, history of lymphoma, on chemotherapy a nd radiation. I will continue Zosyn. We will check on the MRI as ordered by Dr. Butt. Jose Suh MD cc: [phone] TT: 05/12/2017 10:56:47 Confirmation # [id number] Dictation # [id number] en
[2017-05-12] MEDS: Oxymetazoline 0.05% Nasal Spray (30 ml) NS SCH ×2 (13:00→18:02)
[2017-05-12] MEDS: Fluticasone Nasal 50 mcg/Spray NS SCH ×2 (13:09→18:02)
--- NOTE | 2017-05-12 13:35 | PN ---
DATE: 05/12/2017 This is patient's hospital visit on the telemetry floor. For Dr. Bynum. SUBJECTIVE: The patient is a 66-year-old female, seen lying awake in bed, not out of bed since admit lópez 5 days prior with mastoiditis, tachydysrhythmia. With this, we will ask for the patient to be ou t of bed to a chair on a daily basis, bathroom privileges with assist and physiotherapy eval for stre ngthening of her lower extremities and ambulation with a walker as indicated. The patient is known t o suffer from stage IV small cell lymphocytic lymphoma with a mass to the right Meckel's cave/the tri geminal nerve with seizure disorder, gait disturbance, now being treated for mastoiditis, pansinusiti s. There was also a question about her swallowing, which her primary, Dr. Butt, reports is a co ntinued issue for this patient. Otherwise, the patient is in no acute distress at this time. PHYSICAL EXAMINATION: VITAL SIGNS: Temperature 97.9, pulse 105, respirations 18, blood pressure 154/90, pulse ox 100. GENERAL: She appears mildly confused, speaks in hushed tones with discomfort to her right cheek and tongue numbness complaint. HEENT: Otherwise unremarkable. NECK: Supple. HEART: Tachy rate, regular rhythm. LUNGS: Clear. ABDOMEN: Soft, nontender. EXTREMITIES: No edema. Decreased strength in lower extremities. NEUROLOGIC: She is lethargic, but arousable. SKIN: Otherwise, warm, dry and clear. LABORATORY DATA: The patient's labs were done yesterday with a completely normal chem metabolic pane l and CBC with potassium replenished. We will order labs for the morning. ASSESSMENT: Pansinusitis, mastoiditis on the right, history of stage IV small cell lymphocytic lymph joshua with mass to the right Meckel's cave, trigeminal nerve affected, seizure disorder, tachydysrhythm ia, gait disturbance, hypertension, chronic obstructive pulmonary disease, arteriosclerotic cardiovas cular disease and deconditioning. PLAN: After conversation with Dr. Bynum, we will recommend to transfer the patient to the med/surg floor for remote telemetry or if cleared by Dr. Barrera, cardiology, to come to the medical floor. We will also recommend patient be out of bed to a chair on a daily basis with physiotherapy for amb ulation with a walker with strengthening exercises so that she does not deteriorate in that respect. We will also check her labs and monitor clinically. Raheel Sheikh MD cc: [phone] TT: 05/12/2017 13:35:01 Confirmation # [id number] Dictation # [id number] rn
[2017-05-12] MEDS ORDERED: Gadodiamide 287 MG/ML VIAL (15ML) IV ONE (21:28)
[2017-05-13] MEDS: Albuterol-Ipratrop 3 mg / 0.5 (3 ml) UD IH SCH ×4 (01:16→20:27)
[2017-05-13] MEDS: Piperacillin/Tazobact 3.375 gm 100 ML IVPB SCH ×3 (05:30→17:02)
[2017-05-13] MEDS: Pantoprazole 40 mg EC Tab PO SCH (05:30)
[2017-05-13 06:46] LABS: ADD MANUAL DIFF? NO
[2017-05-13 07:11] LABS: BASO # 0.01 K/mm3 (0.0-2.0); BASO % 0.2 % (0.0-3.0); EOS # 0.1 (0.0-0.7); EOS % 1.1 % (1.5-5.0); GRAN # 3.39 (1.4-6.5); GRAN % 76.8 % (50.0-68.0); HEMATOCRIT 35.6 % (36.0-48.0); LYMPH # 0.6 (1.2-3.4); LYMPH % 13.8 % (22.0-35.0); MEAN CELL VOLUME 92.7 fL (80.0-105.0); MEAN CORPUSCULAR HEMOGLOBIN 30.7 pg (25.0-35.0); MEAN CORPUSCULAR HGB CONC 33.1 g/dl (31.0-37.0); MEAN PLATELET VOLUME 8.4 fl (7.0-11.0); MONO # 0.4 (0.1-0.6); MONO % 8.1 % (1.0-6.0); PLATELET COUNT 203 10^3/uL (120.0-450.0); WHITE BLOOD COUNT 4.4 10^3/ul (4.5-11.0)
[2017-05-13 07:28] LABS: ALB/GLOB RATIO 1.2 (1.1-1.8); ALKALINE PHOSPHATASE 55 U/L (38-133); ALT/SGPT 37 U/L (7-56); AST/SGOT 51 U/L (15-39); BILIRUBIN,TOTAL 0.6 mg/dL (0.2-1.3); BLOOD UREA NITROGEN 22 mg/dL (7-21); CALCIUM 9.6 mg/dL (8.4-10.5); CARBON DIOXIDE 32 mmol/L (21-33); CHLORIDE 103 mmol/L (98-107); GFR AFRICAN-AMERICAN > 60; GLUCOSE,RANDOM 101 mg/dL (70-110); SODIUM 142 mmol/L (132-148); TOTAL PROTEIN 6.3 g/dL (5.8-8.3)
[2017-05-13] MEDS: Insulin Reg-LOW-Coverage SC SCH ×4 (08:15→22:44)
[2017-05-13 08:32] LABS: POTASSIUM 2.8 mmol/L (3.6-5.0)
[2017-05-13] MEDS: Metoprolol Succinate 50 mg XL Tab PO SCH (08:48)
[2017-05-13] MEDS: Potassium Chloride 20 mEq ER Tab PO SCH (08:48)
[2017-05-13] MEDS: Fluticasone Nasal 50 mcg/Spray NS SCH ×2 (10:41→17:05)
--- NOTE | 2017-05-13 13:11 | PN ---
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 The patient is complaining of cough. Also, complaining of memory sta tus changes. The patient received an MRI pending results. Vital signs are stable. She is afebrile. She is on triple antibiotic therapy for pansinusitis. Her chest x-ray is clear. We will add some guaifenesin for the cough and also check on her MRI. She will continue IV antibiotics. The patient also was found to have hypokalemia with potassium of 2.8 and she again had 2 K riders today to [employer] potassium. We will recheck potassium and magnesium in the morning. Alex Butt MD cc: 356 TT: 05/13/2017 13:11:21 Confirmation # [id number] Dictation # [id number] dn
--- NOTE | 2017-05-13 15:13 | MRI ---
PROCEDURE: MRI BRAIN WITH AND WITHOUT CONTRAST HISTORY: lymphoma/h/o uat tester mets/ confusion COMPARISON: 01/16/2017 MRI of the brain TECHNIQUE: Multiplanar, multisequence MR images of the brain were obtained with and without intravenous contrast enhancement. 15 cc of Omniscan FINDINGS: HEMORRHAGE: None DWI: No evidence of an acute or early subacute infarction. BRAIN PARENCHYMA: No mass,mass effect or edema. Chronic microvascular changes are seen in the periventricular white matter ENHANCEMENT: No abnormal intracranial enhancement. VENTRICLES: Unremarkable. No hydrocephalus. CRANIUM: Unremarkable. ORBITS: Grossly unremarkable. PARANASAL SINUSES/MASTOIDS: There is extensive sinusitis which was not present on the previous study. There is nearly complete opacification of the majority of the paranasal sinuses. VASCULAR SYSTEM: Skull base flow voids intact. OTHER FINDINGS: None . IMPRESSION: No evidence of metastatic disease. Extensive sinusitis
--- NOTE | 2017-05-13 16:25 | PN ---
DATE: 05/12/[address] Bynum. SUBJECTIVE: The patient is a 66-year-old female admitted for mastoiditis, pansinusitis by her primar y doctor, with patient spending the past 5 days on telemetry, not being out of bed. We will ask for her to be sitting up in a chair, ambulation with assist. She is known to suffer from stage IV small cell lymphocytic lymphoma with mets to the right trigeminal area, Meckel's cave with mastoiditis ther e with numbness of her tongue on a continuing basis. She also has a seizure disorder. However at pr esent she is resting comfortably, in no acute distress. OBJECTIVE: VITAL SIGNS: Temperature 98.6, pulse 110, respirations 20, blood pressure 148/104, pulse ox 100%. LABORATORY DATA: The patient had an MRI of her brain done yesterday. It was read as no evidence of metastatic disease, extensive sinusitis with near complete opacification of the majority of the paran edith sinuses. PHYSICAL EXAMINATION: HEENT: Unremarkable. Oxygen is on. NECK: Supple. HEART: Tachy rate, regular rhythm. LUNGS: Clear. ABDOMEN: Soft, nontender. EXTREMITIES: No edema. SKIN: Warm, dry. NEUROLOGIC: Awake and alert. However, she has history of significant ____ with dizziness. LABORATORY DATA: The patient's labs were done. White blood cell count 4.4, hemoglobin of 11.8, morgan tocrit 35.6, platelet count of 203,000. Chem metabolic panel showing a potassium of 2.8, which is be ing replenished. BUN of 22 with a normal creatinine of 1.0, AST of 51, otherwise normal chem metabol ic panel. The patient's gram stain of a nasal culture was significant for coagulase negative staphylococcus. ASSESSMENT: Hypokalemia to be corrected, pansinusitis mastoiditis on the right. History Stage IV sm all cell lymphocytic lymphoma with a mass to the trigeminal nerve meckel's cave, seizure disorder, ta chydysrhythmia, gait disturbance, chronic obstructive pulmonary disease, atherosclerotic cardiovascul ar disease, deconditioning. PLAN: The patient is to be out of bed on a daily basis with physiotherapy with continuation of her p resent medical regimen. Prognosis for this patient is guarded. We will monitor clinically and with labs. Raheel Aguilar CHAMBERLAIN cc: [id number] TT: 05/13/2017 16:25:43 Confirmation # [id number] Dictation # [id number] jn
[2017-05-13] MEDS: guaiFENesin 600 mg ER Tab PO SCH (17:03)
--- NOTE | 2017-05-13 18:10 | PN ---
DATE: 05/13/2017 The patient is in bed in no acute distress, nontoxic. PHYSICAL EXAMINATION: VITAL SIGNS: Temperature is 98, blood pressure is 140/80, respiratory rate of 16. HEENT: Unremarkable. NECK: Supple. LUNGS: Have decreased breath sounds. HEART: Normal S1, S2. ABDOMEN: Soft, nontender. LABORATORY DATA: Reveals a white count of 4, hemoglobin of 11. BUN of 22, creatinine of 1.0. Urina lysis is noted. Influenza is negative. Microbiology reveals nasal coag negative staph and urine cul tures gram-positive cocci but the blood cultures are negative. Review of the orders reveals the patient to be on Zosyn and Dr. Butt's note is reviewed. 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 The patient's MRI of the head reveals no evidence of metastatic disease r ead by Dr. Sargent, but there is extensive sinusitis. Will continue the Zosyn. The patient has had a n HIV test, which was negative in the past and will follow with you. Overall prognosis is quite poor for this patient. Jose Suh MD cc: 350 TT: 05/13/2017 18:09:22 Confirmation # [id number] Dictation # [id number] dn
[2017-05-14] MEDS: Piperacillin/Tazobact 3.375 gm 100 ML IVPB SCH ×5 (00:08→23:03)
[2017-05-14] MEDS: Albuterol-Ipratrop 3 mg / 0.5 (3 ml) UD IH SCH ×4 (02:45→19:53)
[2017-05-14] MEDS: Pantoprazole 40 mg EC Tab PO SCH (06:10)
[2017-05-14 06:26] LABS: BLOOD UREA NITROGEN 16 mg/dL (7-21); CALCIUM 9.7 mg/dL (8.4-10.5); CARBON DIOXIDE 32 mmol/L (21-33); CHLORIDE 104 mmol/L (95-110); GFR AFRICAN-AMERICAN > 60; GLUCOSE,RANDOM 94 mg/dL (70-110); MAGNESIUM 1.9 mg/dL (1.7-2.2); SODIUM 144 mmol/L (132-148)
[2017-05-14 06:45] LABS: POTASSIUM 2.8 mmol/L (3.6-5.0)
[2017-05-14] MEDS ORDERED: Potassium Chloride 20 mEq ER Tab PO SCH (06:45)
--- NOTE | 2017-05-14 06:46 | CP.PCM.PN ---
Subjective - Date & Time of Evaluation Date of Evaluation: 05/14/17 Time of Evaluation: 06:46 - Subjective Subjective: S:Patient was seen at bedside. Denies vomiting, diarrhoea. States that she has been coughing a lot with phlegm. No other problems. No problem in urination. ROS:Neg except as mentioned above. Medical record was reviewed. K 2.8 mEq. as per discussion with lab. Lab called nurse(Dhara) and told that this am K is 2.4 mEq. I changed my order and gave KCL 20 mEq IV and 40 mEq PO. O: Last Vital Signs 3 Temp 98.2 F 05/14/17 06:00 Pulse 111 H 05/14/17 10:00 Resp 20 05/14/17 06:00 BP 158/105 H 05/14/17 09:42 Pulse Ox 97 05/14/17 06:00 66 year old woman in no acute distress. LUNGS: Normal breathing pattern. A:Hypokalemia. P: Potassium supplement as ordered. Repeat BMP at 2 PM. Objective - Vital Signs/Intake and Output Vital Signs (last 24 hours): Temp Pulse Resp BP Pulse Ox 98.6 F 108 H 20 148/104 H 100 05/13/17 06:00 05/14/17 06:00 05/13/17 06:00 05/13/17 10:42 05/13/17 06:00 - Medications Medications: Current Medications Acetaminophen (Tylenol 325mg Tab) 650 mg PO Q6H PRN PRN Reason: Fever >100.4 F Albuterol/Ipratropium (Duoneb 3 Mg/0.5 Mg (3 Ml) Ud) 3 ml IH [id number] [facility] Last Admin: 05/14/17 02:45 Dose: Not Given Amlodipine Besylate (Norvasc) 10 mg PO DAILY [facility] Last Admin: 05/13/17 10:42 Dose: 10 mg Fluticasone Propionate (Flonase) 2 actuation NS BID [facility] Last Admin: 05/13/17 17:05 Dose: 2 sprays Guaifenesin (Mucinex La) 600 mg PO BID [facility] Last Admin: 05/13/17 17:03 Dose: 600 mg Guaifenesin/Dextromethorphan (Robitussin Dm) 5 ml PO Q4H PRN PRN Reason: Cough Last Admin: 05/10/17 09:42 Dose: 5 ml Piperacillin Sod/Tazobactam Sod (Zosyn 3.375 In Ns 100ml) 100 mls @ 200 mls/hr IVPB Q6 ARVIND PRN Reason: Protocol Stop: 05/18/17 00:01 Last Admin: 05/14/17 06:11 Dose: 200 mls/hr Potassium Chloride (Potassium Chloride 20 Meq/100 Ml) 20 meq in 100 mls @ 50 mls/hr IVPB ONCE ONE Stop: 05/14/17 08:41 Insulin Human Regular (Humulin R Low) 0 units SC ACHS ARVIND PRN Reason: Protocol Last Admin: 05/13/17 22:44 Dose: Not Given Lamotrigine (Lamictal) 200 mg PO BID [facility] Last Admin: 05/13/17 17:03 Dose: 200 mg Levetiracetam (Keppra) 500 mg PO BID [facility] Last Admin: 05/13/17 17:03 Dose: 500 mg Lisinopril (Zestril) 20 mg PO DAILY [facility] Last Admin: 05/13/17 10:42 Dose: 20 mg Loratadine (Claritin) 10 mg PO DAILY [facility] Last Admin: 05/13/17 10:43 Dose: 10 mg Metoprolol Succinate (Toprol Xl) 50 mg PO BRK [facility] Last Admin: 05/13/17 08:48 Dose: 50 mg Ondansetron HCl (Zofran Inj) 4 mg IVP Q6H PRN PRN Reason: Nausea/Vomiting Last Admin: 05/09/17 14:11 Dose: 4 mg Pantoprazole Sodium (Protonix Ec Tab) 40 mg PO 0630 [facility] Last Admin: 05/14/17 06:10 Dose: 40 mg Potassium Chloride (K-Dur 20 Meq Er Tab) 20 meq PO BRK [facility] Last Admin: 05/13/17 08:48 Dose: 20 meq Potassium Chloride (K-Dur 20 Meq Er Tab) 40 meq PO Q2H [facility] Stop: 05/14/17 10:46 Prednisone (Prednisone Tab) 10 mg PO DAILY [facility] Last Admin: 05/13/17 10:43 Dose: 10 mg Sodium Chloride ([place] Nasal [place]) 0 ml NS QID [facility] Last Admin: 05/13/17 22:22 Dose: 1 spr - Labs Labs: 05/13/17 06:42 05/14/17 06:00 PT 10.7 Seconds (9.9-11.8) 05/06/17 16:30 INR 0.99 (0.93-1.08) 05/06/17 16:30 APTT 52.6 Seconds (23.7-30.8) H 05/06/17 16:30
[2017-05-14] MEDS ORDERED: Potassium Chloride 20 mEq ER Tab PO STA (06:52)
[2017-05-14] MEDS: Insulin Reg-LOW-Coverage SC SCH ×4 (07:46→23:09)
[2017-05-14] MEDS: Potassium Chloride 10 mEq ER Tab PO SCH (08:30)
[2017-05-14] MEDS: Metoprolol Succinate 50 mg XL Tab PO SCH (08:30)
[2017-05-14] MEDS: Potassium Chloride 20 mEq ER Tab PO SCH (08:31)
--- NOTE | 2017-05-14 08:37 | PN ---
DATE: 05/14/2017 A 66-year-old black female with history of seizure disorder, lymphoma with ____ mets, hypertension, t achycardia. The patient admitted to the hospital with pansinusitis, on IV antibiotics. VITAL SIGNS: The patient is afebrile. Blood pressure is 148/104, heart rate is 108. LABORATORY DATA: Hemoglobin is 11.8. White count is 4.4. The patient has had persistent hypokalemia. She was given 2 K-riders yesterday. Potassium was still 2.8. Repeat magnesium is 1.9. She will be given K-riders again and also p.o. potassium. The patient is afebrile. She had a repeat MRI of the brain because of history of ____ lymphoma. The brain is clear at this point. The patien t is to continue IV antibiotics for her pansinusitis. Replenish potassium and follow patient clinica lly. A 12 point review of systems unremarkable. Physical exam is unchanged. PLAN: Continue present course of medication. Alex Butt MD cc: [id number] TT: 05/14/2017 08:36:29 Confirmation # [id number] Dictation # [id number] sn
[2017-05-14] MEDS: guaiFENesin 600 mg ER Tab PO SCH ×2 (09:42→18:27)
[2017-05-14] MEDS: Fluticasone Nasal 50 mcg/Spray NS SCH ×2 (09:43→18:31)
--- NOTE | 2017-05-14 12:23 | PN ---
DATE: 05/14/2017 The patient is in bed, in no acute distress, nontoxic, seen earlier in 362, bed 1. PHYSICAL EXAMINATION: VITAL SIGNS: Temperature is 98, blood pressure is 158/100, respiratory rate of 20, heart rate of 104 . HEENT: Unremarkable. NECK: Supple. LUNGS: Have decreased breath sounds. HEART: Normal S1, S2. ABDOMEN: Soft, nontender. LABORATORY EXAMINATION: Reveals a white count of 4 and hemoglobin of 11, platelets of 203. BUN of 1 6, creatinine of 0.9. Urinalysis is noted. Serology is noted. Microbiology reviewed. Review of orders reveals the patient to be on Zosyn, which requires renewal, which I will renew. Dr. Butt's note is reviewed. 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 Althoug h the MRI of the head shows no evidence of metastatic disease, but there is extensive sinusitis. We will continue the Zosyn and follow clinically with ENT, Dr. Miguel Gee's consultation is reviewed. We will follow with you. Jose Suh MD cc: 350 TT: 05/14/2017 12:22:46 Confirmation # [id number] Dictation # [id number] en
[2017-05-14 14:54] LABS: BLOOD UREA NITROGEN 15 mg/dL (7-21); CALCIUM 10.3 mg/dL (8.4-10.5); CARBON DIOXIDE 30 mmol/L (21-33); CHLORIDE 104 mmol/L (98-107); GFR AFRICAN-AMERICAN > 60; GLUCOSE,RANDOM 142 mg/dL (70-110); POTASSIUM 4.3 mmol/L (3.6-5.0); SODIUM 142 mmol/L (132-148)
--- NOTE | 2017-05-14 15:01 | PN ---
DATE: 05/14/2017 This is the patient's hospital visit on the medical floor. For Dr. Bynum. SUBJECTIVE: The patient is a 66-year-old female admitted for mastoiditis, pansinusitis with patient now out of bed to the chair after insistence earlier today as the patient was found in bed with her l egs dangling with the rails up on both sides with the legs between the rales. She is more alert when she is sitting up out of bed to the chair after this was done with the patient now having her lunch, sitting out of bed. She reports she feels better now. 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 Her potassium is being replenished as per raymond chirinos. OBJECTIVE AND PHYSICAL EXAMINATION: VITAL SIGNS: Temperature 98.2, pulse 111, respirations 20, blood pressure 158/105 with a pulse ox of 97%. GENERAL: She appears disheveled with the patient found in her bed as above. HEENT: Otherwise unremarkable. NECK: Supple. HEART: Tachy rate, regular rhythm. LUNGS: Clear. ABDOMEN: Soft. EXTREMITIES: No edema. SKIN: Warm, dry and clear. NEUROLOGIC: Confused, but awake and alert. The patient's labs were done yesterday and the patient's labs will be repeated tomorrow. She did hav e a potassium 2.8 today. Her CBC was not done. We will repeat that in the morning. 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 PLAN: For this patient is to continue present medical regimen. We will check her labs in the [facility]. The prognosis for this patient is guarded. She will be out of bed on a daily basis as recommendmaria d. This was instructed to the nursing staff to prevent deterioration of her condition. Raheel Sheikh MD cc: 411 TT: 05/14/2017 15:00:26 Confirmation # [id number] Dictation # [id number] en
[2017-05-14] MEDS: guaiFENesin DM 100 mg-10 mg/5 ml UD PO PRN (15:48)
[2017-05-14 16:10] LABS: ADD MANUAL DIFF? NO
[2017-05-14 16:20] LABS: BASO # 0.01 K/mm3 (0.0-2.0); BASO % 0.2 % (0.0-3.0); EOS % 0.3 % (1.5-5.0); GRAN # 5.01 (1.4-6.5); GRAN % 87.3 % (50.0-68.0); HEMATOCRIT 38.7 % (36.0-48.0); LYMPH # 0.5 (1.2-3.4); LYMPH % 8.5 % (22.0-35.0); MEAN CORPUSCULAR HEMOGLOBIN 30.5 pg (25.0-35.0); MEAN CORPUSCULAR HGB CONC 32.8 g/dl (31.0-37.0); MEAN PLATELET VOLUME 8.6 fl (7.0-11.0); MONO # 0.2 (0.1-0.6); MONO % 3.7 % (1.0-6.0); PLATELET COUNT 221 10^3/uL (120.0-450.0); WHITE BLOOD COUNT 5.7 10^3/ul (4.5-11.0)
--- NOTE | 2017-05-14 16:53 | RAD ---
HISTORY: cough COMPARISON: 05/10/2017 FINDINGS: LUNGS: No active pulmonary disease. PLEURA: No significant pleural effusion identified, no pneumothorax apparent. CARDIOVASCULAR: Normal. OSSEOUS STRUCTURES: No significant abnormalities. VISUALIZED UPPER ABDOMEN: Normal. OTHER FINDINGS: Right-sided Port-A-Cath IMPRESSION: No active disease.
[2017-05-15] MEDS: Albuterol-Ipratrop 3 mg / 0.5 (3 ml) UD IH SCH ×2 (01:03→08:14)
[2017-05-15] MEDS: Pantoprazole 40 mg EC Tab PO SCH (05:37)
[2017-05-15] MEDS: Piperacillin/Tazobact 3.375 gm 100 ML IVPB SCH ×2 (05:42→11:52)
[2017-05-15 09:12] VITALS: BP 131/92; PULSE 124; RESP 21; TEMP 98.5; O2SAT 98
--- NOTE | 2017-05-15 09:28 | PN ---
DATE: 05/15/2017 A 66-year-old black female admitted to the hospital with pansinusitis, cough, shortness of breath, hi story of lymphoma with SCRAPER HAND mets, history of seizure disorder, history of hypertension and tachyarrhyt hmia. The patient has been treated for pansinusitis with a long course of antibiotics. She continue s to have some cough; however, repeat chest x-ray is clear. PHYSICAL EXAMINATION: VITAL SIGNS: She is afebrile. Blood pressure is improved down to 158/105, heart rate is 111, temper ature is 98.2. LABORATORY DATA: Unremarkable. PLAN: To continue antihypertensive medications, continue her seizure medications, continue antibioti cs. Most likely could be discharged home with physical therapy at home. To complete a course of p.o . antibiotics at home for her pansinusitis. Alex Butt MD cc: 356 TT: 05/15/2017 09:27:53 Confirmation # [id number] Dictation # [id number] mn
[2017-05-15] MEDS: Insulin Reg-LOW-Coverage SC SCH ×3 (10:02→11:49)
[2017-05-15] MEDS: Fluticasone Nasal 50 mcg/Spray NS SCH (10:02)
[2017-05-15] MEDS: Potassium Chloride 20 mEq ER Tab PO SCH (10:03)
[2017-05-15] MEDS: Potassium Chloride 10 mEq ER Tab PO SCH (10:04)
[2017-05-15] MEDS: guaiFENesin DM 100 mg-10 mg/5 ml UD PO PRN (10:05)
[2017-05-15] MEDS: guaiFENesin 600 mg ER Tab PO SCH (10:05)
--- NOTE | 2017-05-15 17:21 | PN ---
DATE: 05/15/2017 SUBJECTIVE: The patient seen earlier this morning in 362, bed 1. Her status is unchanged. She stat es she had an uneventful night last night. She has had no fevers, no diarrhea. She is tolerating th e antibiotics well. PHYSICAL EXAMINATION: VITAL SIGNS: Temperature is 98, blood pressure is 130/80, respiratory rate of 16. HEENT: Unremarkable. NECK: Supple. LUNGS: Have decreased breath sounds. HEART: Normal S1, S2. ABDOMEN: Soft, nontender. LABORATORY DATA: Reveals a white count of 5.7, hemoglobin of 12. Coagulation is noted. Chemistries reveal the BUN of 15, creatinine of 0.9. Urinalysis is noted. Serology is negative. Microbiology reveals nasal cultures are noted. Review of the orders reveals the patient to be on Zosyn. Dr. Butt's progress note from today is reviewed. Chest x-ray is no active disease. ASSESSMENT AND PLAN: This is a 66-year-old with history of seizures, lymphoma, central nervous syste m metastasis, bilateral mastoiditis, status post chemotherapy and radiation and currently with extensive sinusitis may be able to switch to p.o. antibiotics within the next 24-48 hours and p.o. Au gmentin at 875 p.o. b.i.d. and with doxycycline to complete therapy and follow up with ENT. Overall prognosis is quite poor. Jose Suh MD cc: 350 TT: 05/15/2017 17:20:45 Confirmation # [id number] Dictation # [id number]
[2017-05-16] MEDS ORDERED: Metoprolol Succinate 100 mg XL Tab PO SCH (08:00)
== END 2017-05-15 18:02 | disposition home or self-care (01) | DRG 153 ==
LOC: ED 15:37 → ERH 19:46 → 3RSO 22:09 → 2RNO 05-08 14:44 → 3RNO 05-12 16:21
PROVIDERS: ADMIT Internal Medicine; ATTEND Internal Medicine
DX: J01.40 Acute pansinusitis, unspecified (principal); C79.31 Secondary malignant neoplasm of brain; H70.91 Unspecified mastoiditis, right ear; I47.1 Supraventricular tachycardia; J45.901 Unspecified asthma with (acute) exacerbation; N39.0 Urinary tract infection, site not specified; J44.9 Chronic obstructive pulmonary disease, unspecified; D70.9 Neutropenia, unspecified; E87.6 Hypokalemia; G40.909 Epilepsy, unspecified, not intractable, without status epilepticus; I10 Essential (primary) hypertension; I25.10 Atherosclerotic heart disease of native coronary artery without angina pectoris; R26.2 Difficulty in walking, not elsewhere classified; Z85.72 Personal history of non-Hodgkin lymphomas

== ENCOUNTER 2017-05-17 16:05 | Observation (INO) | payer MEDICARE, OTHER ==
[2017-05-17 16:06] VITALS: BMI 21.1
--- NOTE | 2017-05-17 16:28 | ED PDOC ---
Arrival/HPI - General Historian: Patient - History of Present Illness Symptom Onset: Gradual Symptom Course: Worsening Context: Home - General Time Seen by Provider: 05/17/17 16:12 - History of Present Illness Narrative History of Present Illness (Text): 05/17/17 16:33 66 yo female with PMH of lymphoma, asthma, HTN and seizure presents to ED with fatigue and general weakness. She was recently in the hospital and was discharged about 1 week ago. Patient states her weakness started about 1 month ago however today she was having difficulty walking. She also reporst chronic cough. She denies chest pain, abd pain, nausea, vomiting, urinary symptoms. PMD: Dr. 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) HX Cerebrovascular Accident: No Hx Dizziness: Yes (SYNCOPE) - HEENT Hx HEENT Disorder: Yes Hx Cataracts: Yes (bilateral) - Renal Hx Pyelonephritis: Yes Hx Renal Failure: No - Endocrine/Metabolic Hx Diabetes Mellitus Type 1: No Hx Diabetes Mellitus Type 2: No Hx Hypothyroidism: No - Hematological/Oncological Hx Cancer: Yes (Brain) - Integumentary Hx Dermatological Disorder: No - Musculoskeletal/Rheumatological Hx Falls: Yes - Gastrointestinal Hx Gastroesophageal Reflux: Yes - Genitourinary/Gynecological Hx Genitourinary Disorders: Yes (HYSTERECTOMY) Hx Incontinence: Yes - Psychiatric Hx Psychophysiologic Disorder: Yes Hx Anxiety: Yes Hx Substance Use: No - Surgical History Hx Hysterectomy: Yes Other/Comment: Port in R chest - Anesthesia Hx Anesthesia: Yes Hx Anesthesia Reactions: No Hx Malignant Hyperthermia: No - Suicidal Assessment Feels Threatened In Home Enviroment: No Family/Social History - Physician Review Nursing Documentation Reviewed: Yes Family/Social History: No Known Family HX Smoking Status: Never Smoked Hx Alcohol Use: No Hx Substance Use: No Hx Substance Use Treatment: No Allergies/Home Meds Allergies/Adverse Reactions: Allergies No Known Allergies Allergy (Verified 05/17/17 16:20) Home Medications: Home Meds Medication Instructions Recorded Confirmed Lamotrigine [Lamictal] 200 mg PO BID 10/18/16 05/17/17 Famotidine [Pepcid] 20 mg PO DAILY 10/22/16 05/17/17 amLODIPine [Norvasc] 10 mg PO DAILY 12/18/16 05/17/17 Gabapentin [Neurontin] 100 mg PO TID 05/06/17 05/17/17 Levetiracetam [Keppra] 500 mg PO BID 05/06/17 05/17/17 Lisinopril [Zestril] 20 mg PO DAILY 05/06/17 05/17/17 Potassium Chloride [Klor-Con 10] 20 meq PO DAILY 05/06/17 05/17/17 Review of Systems - Review of Systems Constitutional: Fatigue. absent: Fevers Eyes: Normal. absent: Vision Changes ENT: Normal. absent: Sore Throat, Rhinorrhea, Sinus Congestion Respiratory: Cough. absent: SOB, Wheezing Cardiovascular: Normal. absent: Chest Pain, Palpitations Gastrointestinal: Normal. absent: Abdominal Pain, Constipation, Diarrhea, Nausea, Vomiting Genitourinary Female: Normal. absent: Dysuria, Frequency Musculoskeletal: Normal. absent: Arthralgias, Myalgias Skin: Normal. absent: Rash, Pruritis, Laceration Neurological: Normal. absent: Headache, Dizziness Endocrine: Normal Hemo/Lymphatic: Normal Psychiatric: Normal Physical Exam - Systems Exam Head: Present: Atraumatic, Normocephalic Pupils: Present: PERRL. No: Non-Reactive, Pinpoint Extroacular Muscles: Present: EOMI. No: Entrapment Conjunctiva: Present: Normal Mouth: Present: Moist Mucous Membranes Neck: Present: Normal Range of Motion Respiratory/Chest: Present: Clear to Auscultation, Good Air Exchange. No: Respiratory Distress, Accessory Muscle Use, Wheezes, Rales, Rhonchi, Tachypneic Cardiovascular: Present: Normal S1, S2, Tachycardic. No: Murmurs, Bradycardic Abdomen: Present: Normal Bowel Sounds. No: Tenderness, Distention, Peritoneal Signs Back: Present: Normal Inspection Upper Extremity: Present: Normal Inspection. No: Cyanosis, Edema Lower Extremity: Present: Normal Inspection. No: Edema, CALF TENDERNESS Neurological: Present: GCS=15, CN II-XII Intact, Speech Normal, Other ( lethargic ) Skin: Present: Warm, Dry, Normal Color. No: Rashes, Diaphoretic Psychiatric: Present: Alert, Oriented x 3, Normal Insight, Normal Concentration Medical Decision Making - EKG Interpretation Interpreted by ED Physician: Yes Type: 12 lead EKG ED Course and Treatment: 05/17/17 16:41 Impression: 66 yo female with PMH of lymphoma, asthma, HTN and seizure presents to ED with fatigue and general weakness. differential diagnoses includes but not limited to: - sepsis Plan: - cbc, cmp - pt, ptt - cardiac iso - UA - urine and blood cultures - VBG shock panel - IVF - zosyn and vanco - EKG - CXR Progress notes: - EKG rate: 134 bpm, rhythm: sinus tachy, no ST changes 05/17/17 17:34 - labs reviewed, will order CT head without contrast and CTA of chest to r/o PE. - Dr. Sanders's office was called, message left with secretary bookkeeper. 05/17/17 20:40 -CT head FINDINGS: Artifacts: Some of the images are degraded by motion artifact. Brain: Volume loss. Chronic small vessel white matter ischemic change. No acute hemorrhage. No acute infarct. Ventricles: No hydrocephalus. Bones/joints: Diffuse right mastoid effusion including density filling the right mastoid antrum. There is suggestion of coalescence of density in the inferomedial right mastoid bone where there is loss of visualization of air cell septa. Density fills the right middle ear cavity. No acute fracture. Soft tissues: Unremarkable. Sinuses: Ethmoid sinus mucosal thickening including density filling both lateral air cells and fluid levels. Fluid fills the majority of the sphenoid sinus. Right maxillary sinus fluid level, smaller than seen previously. Fluid is no longer seen within left maxillary sinus. Densities fill the majority of the frontal sinus with fluid levels, similar. Mastoid air cells: See above. IMPRESSION: No acute intracranial findings. Involutional and chronic small vessel white matter ischemic changes. Diffuse right middle ear cavity and mastoid disease, not significantly changed, suggesting otitis media and mastoid effusion or possibly otomastoiditis. Evolving extensive sinusitis including acute components. 05/17/17 21:07 - CT chest FINDINGS: Heart, aorta and Pulmonary arteries: The heart is mildly enlarged. There are coronary calcifications.There is no aneurysm or dissection.There are vascular calcifications. There are no central pulmonary emboli. Streak and motion limit evaluation of peripheral vessels. There are no large peripheral pulmonary emboli Lungs and pleural spaces: Trachea and main bronchi are patent. There is minimal apical pleural scarring. Motion artifact degrades image quality.Streak artifact degrades image quality. There is no lobar or segmental consolidation. There is left lower lobe retrocardiac atelectasis. There is scarring at the lung bases. There are no effusions. Mediastinum: The esophagus is unremarkable. There is a small hiatal hernia. There no pathologically enlarged mediastinal or hilar nodes. Thyroid: Thyroid is not optimally demonstrated. Bones/joints: Bony structures are osteopenic.There are degenerative changes in the osseus structures. Soft tissues: There is an incompletely imaged 3.5 x 1.8 x 3.2 cm cystic lesion medial to the left femoral head and inferior to the acromium. She there is right axillary adenopathy. Upper abdomen: There is a low attenuation left renal lesion with rim calcification, not a cyst by CT criteria. Both adrenals are nodular. Tubes, lines and devices: There is a Port-A-Cath in the right chest wall. There is a right jugular catheter tip in the right atrium. IMPRESSION: Mild cardiomegaly and atherosclerotic disease; no aneurysm, dissection or pulmonary emboli Indeterminate left renal lesion; axillary adenopathy right greater than left; cystic mass at the left shoulder possible bursa Additional findings as described above. 05/17/17 21:41 - CXR showed no acute disease. - Pelvic rxay one view showed no acute finding. - Spoke with PA for Dr. Butt, she will admit the patient for tele, observation. Will give labetalol for elevated BP. Patient is agreeable for admission. (Luis,Ragini) Patient Seen With Resident: In agreement with resident note which contains more details about the patient. Patient was seen and evaluated with resident. Came up with plan and treatment together. A 66 year old female with general weakness and fatigue. pt initially tachy on exam. noted recent admission for mastoiditis/sinusitis. inital labs unremarkable. head ct, ct chest neg. updated dr chambers. dr butt accepts. Additional HPI as noted by resident.. Ordered EKG, chest xray, Urinalysis and labs. Will give patient IV fluids, Vancomycin and Zosyn. 05/17/17 22:49 (Raswant,Jaskaran) - Lab Interpretations Microbiology Results: Microbiology Results 05/17/17 16:45 Urine Urine Culture - Final No Growth (<1,000 CFU/ML) 05/17/17 17:00 Blood Blood Culture - Preliminary NO GROWTH AFTER 24 HOURS 05/17/17 16:45 Blood Blood Culture - Preliminary NO GROWTH AFTER 24 HOURS Lab Results: 05/19/17 06:00 05/19/17 06:00 Lab Results 05/19/17 06:00: Sodium 138, Chloride 99, Potassium 3.2 L, Carbon Dioxide 34 H, Anion Gap 8 L, BUN 14, Creatinine 0.9, Est GFR ( Amer) > 60, Est GFR (Non -Af Amer) > 60, Random Glucose 102, Calcium 9.6, Total Bilirubin 0.7, AST 47 H, ALT 43, Alkaline Phosphatase 58, Total Protein 6.4, Albumin 3.8, Globulin 2.7, Albumin/Globulin Ratio 1.4 05/19/17 06:00: WBC 3.5 L D, RBC 4.00, Hgb 12.0, Hct 37.3, MCV 93.3, MCH 30.0, MCHC 32.2, RDW 13.2, Plt Count 197, MPV 8.8, Gran % 66.0, Lymph % (Auto) 23.2, Imperial % (Auto) 9.0 H, Eos % (Auto) 1.2 L, Baso % (Auto) 0.6, Gran # 2.28, Lymph # 0.8 L, Imperial # 0.3, Eos # 0.0, Baso # 0.02 05/17/17 20:45: pO2 54, VBG pH 7.40, VBG pCO2 54.0, VBG HCO3 33.4 H, VBG Total CO2 35.1 H, VBG O2 Sat (Calc) 92.0 H, VBG Base Excess 7.0 H, VBG Potassium 3.7, Sodium 141.0, Chloride 104.0, Glucose 105, Lactate 1.3, FiO2 21.0, Venous Blood Potassium 3.7 05/17/17 16:45: pO2 46, VBG pH 7.42, VBG pCO2 52.0, VBG HCO3 33.7 H, VBG Total CO2 35.3 H, VBG O2 Sat (Calc) 86.5 H, VBG Base Excess 7.8 H, VBG Potassium 3.8, Sodium 143.0, Chloride 107.0, Glucose 153 H, Lactate 2.0, FiO2 21.0, Venous Blood Potassium 3.8 05/17/17 16:45: PT 11.0, INR 1.02, APTT 23.9 05/17/17 16:45: Sodium 141, Chloride 103, Potassium 3.8, Carbon Dioxide 32, Anion Gap 10, BUN 20, Creatinine 0.9, Est GFR ( Amer) > 60, Est GFR (Non- Af Amer) > 60, Random Glucose 144 H, Calcium 9.8, Magnesium 1.9, Total Bilirubin 0.5, AST 48 H, ALT 44, Alkaline Phosphatase 65, Lactate Dehydrogenase 1548 H, Total Creatine Kinase 115, Troponin I 0.02 D, Total Protein 6.5, Albumin 4.0, Globulin 2.6, Albumin/Globulin Ratio 1.5 05/17/17 16:45: Urine Color Yellow, Urine Appearance Clear, Urine pH 6.5, Ur Specific [place] 1.020, Urine Protein 30 H, Urine Glucose (UA) Negative, Urine Ketones Negative, Urine Blood Negative, Urine Nitrate Negative, Urine Bilirubin Negative, Urine Urobilinogen 0.2, Ur Leukocyte Esterase Negative, Urine RBC 1 - 3, Urine WBC 0 - 2, Ur Epithelial Cells 0 - 2, Calcium Oxalate Crystal Rare, Urine Bacteria Mod 05/17/17 16:45: WBC 5.0, RBC 3.77, Hgb 11.5 L, Hct 35.6 L, MCV 94.4, MCH 30.5, MCHC 32.3, RDW 13.2, Plt Count 216, MPV 8.6, Gran % 78.0 H, Lymph % (Auto) 15.0 L, Imperial % (Auto) 5.8, Eos % (Auto) 0.8 L, Baso % (Auto) 0.4, Gran # 3.89, Lymph # 0.8 L, Imperial # 0.3, Eos # 0.0, Baso # 0.02 - RAD Interpretation Radiology Orders: 05/17/17 16:29 CHEST PORTABLE [RAD] Stat 05/17/17 17:29 HEAD W/O CONTRAST [CT] Stat 05/17/17 17:30 ANGIO CHEST PE PROTOCOL [CT] Stat 05/18/17 10:19 ABD PELVIS PO & IV CONTRAST [CT] Routine - EKG Interpretation EKG Interpretation (Text): 05/17/17 16:44 EKG rate: 134 bpm rhythm: sinus tachy, nonspecifc ST changes (Luis,Ragini) - Medication Orders Current Medication Orders: Amlodipine Besylate (Norvasc) 10 mg PO DAILY [facility] Last Admin: 05/19/17 10:15 Dose: 10 mg Amoxicillin/Clavulanate Potassium (Augmentin 500 Mg-125 Mg Tab) 1 tab PO Q8 [facility] PRN Reason: Protocol Last Admin: 05/19/17 05:14 Dose: 1 tab Famotidine (Pepcid) 20 mg PO DAILY [facility] Last Admin: 05/19/17 10:15 Dose: 20 mg Lamotrigine (Lamictal) 200 mg PO BID [facility] Last Admin: 05/19/17 10:14 Dose: 200 mg Levetiracetam (Keppra) 500 mg PO BID [facility] Last Admin: 05/19/17 10:14 Dose: 500 mg Lisinopril (Zestril) 20 mg PO DAILY [facility] Last Admin: 05/19/17 10:15 Dose: 20 mg Metoprolol Succinate (Toprol Xl) 100 mg PO BRK [facility] Last Admin: 05/19/17 08:00 Dose: 100 mg Potassium Chloride (K-Dur 20 Meq Er Tab) 20 meq PO DAILY [facility] Last Admin: 05/19/17 10:14 Dose: 20 meq Prednisone (Prednisone Tab) 5 mg PO DAILY [facility] Last Admin: 05/19/17 10:15 Dose: 5 mg Discontinued Medications Acetaminophen (Tylenol 325mg Tab) 650 mg PO STAT STA Stop: 05/18/17 23:59 Last Admin: 05/19/17 00:05 Dose: 650 mg Re-Assess: MAR Pain/Vitals Document 05/19/17 01:05 AP (Rec: 05/19/17 01:32 AP [id number]) Pain Reassessment Is This A Pain ReAssessment? Yes Sleep Is patient sleeping during reassessment? Yes Barium Sulfate (Readi-Cat 2) Confirm Administered Dose 900 ml PO .STK-MED ONE Stop: 05/18/17 10:29 Sodium Chloride (Sodium Chloride 0.9%) 1,000 mls @ 999 mls/hr IV .Q1H1M STA Stop: 05/17/17 17:31 Last Admin: 05/17/17 17:03 Dose: 999 mls/hr Vancomycin HCl (Vancomycin 1gm) 1 gm in 250 mls @ 167 mls/hr IVPB STAT STA PRN Reason: Protocol Stop: 05/17/17 18:00 Last Admin: 05/17/17 17:59 Dose: 167 mls/hr Piperacillin Sod/Tazobactam Sod (Zosyn 3.375 In Ns 100ml) 100 mls @ 200 mls/hr IVPB STAT STA PRN Reason: Protocol Stop: 05/17/17 17:00 Last Admin: 05/17/17 17:04 Dose: 200 mls/hr Iodixanol (Visipaque 320 Mg/Ml 100 Ml) Confirm Administered Dose 100 ml IV .STK- MED ONE Stop: 05/17/17 20:17 Iohexol (Omnipaque 350 150 Ml) Confirm Administered Dose 150 ml .ROUTE .STK-MED ONE Stop: 05/17/17 17:57 Last Admin: 05/18/17 02:45 Dose: Iohexol (Omnipaque 240 (50 Ml)) Confirm Administered Dose 50 ml .ROUTE .STK-MED ONE Stop: 05/17/17 19:29 Last Admin: 05/18/17 02:45 Dose: Iohexol (Omnipaque 350 100 Ml) Confirm Administered Dose 350 mg .ROUTE .STK-MED ONE Stop: 05/18/17 11:06 Labetalol HCl (Trandate) 10 mg IV STAT STA Stop: 05/17/17 21:39 Last Admin: 05/17/17 21:42 Dose: 10 mg Labetalol HCl (Trandate) Confirm Administered Dose 100 mg .ROUTE .STK-MED ONE Stop: 05/17/17 21:42 Last Admin: 05/17/17 22:03 Dose: Labetalol HCl (Trandate) 10 mg IV ONCE ONE Stop: 05/18/17 06:27 Last Admin: 05/18/17 06:40 Dose: 10 mg Metoprolol Tartrate (Lopressor) 5 mg IVP ONCE ONE Stop: 05/18/17 11:23 Last Admin: 05/18/17 11:29 Dose: 5 mg Metoprolol Tartrate (Lopressor) 5 mg IVP ONCE ONE Stop: 05/18/17 16:48 Last Admin: 05/18/17 17:05 Dose: 5 mg Metoprolol Tartrate (Lopressor) 5 mg IVP STAT STA Stop: 05/18/17 21:38 Last Admin: 05/18/17 21:42 Dose: 5 mg Metoprolol Tartrate (Lopressor) 5 mg IVP STAT STA Stop: 05/19/17 05:46 Last Admin: 05/19/17 05:59 Dose: 5 mg Potassium Chloride (K-Dur 20 Meq Er Tab) 40 meq PO STAT STA Stop: 05/19/17 10:11 Last Admin: 05/19/17 10:17 Dose: 40 meq Disposition/Present on Arrival - Present on Arrival Any Indicators Present on Arrival: No History of DVT/PE: No History of Uncontrolled Diabetes: No Urinary Catheter: No History of Decub. Ulcer: No History Surgical Site Infection Following: None - Disposition Have Diagnosis and Disposition been Completed?: Yes Disposition Time: 21:45 Patient Plan: Admission - Disposition Diagnosis: Tachycardia, Weakness Disposition: HOSPITALIZED Patient Problems: Current Active Problems Problem Status Onset Tachycardia Acute Weakness Acute Condition: FAIR
[2017-05-17] MEDS ORDERED: Piperacillin/Tazobact 3.375 gm 100 ML IVPB STA (16:31)
[2017-05-17] MEDS ORDERED: Vancomycin 1gm in NS 250ml 1 GM/250 ML BAG IVPB STA (16:31)
[2017-05-17] MEDS ORDERED: Sodium Chloride 0.9% 1,000 ML IV STA (16:31)
[2017-05-17 16:53] LABS: ADD MANUAL DIFF? NO
[2017-05-17 16:58] LABS: PH,URINE 6.5 (4.7-8.0); URINE BILIRUBIN NEGATIVE (NEGATIVE); URINE BLOOD NEGATIVE (NEGATIVE); URINE GLUCOSE (UA) NEGATIVE (NEGATIVE); URINE KETONE NEGATIVE (NEGATIVE); URINE LEUKOCYTE ESTERASE NEGATIVE Leu/uL (NEGATIVE); URINE PROTEIN 30 mg/dL (<30 mg/dL); URINE UROBILINOGEN 0.2 E.U./dL (<1 E.U./dL)
[2017-05-17 16:59] LABS: BASO # 0.02 K/mm3 (0.0-2.0); BASO % 0.4 % (0.0-3.0); EOS % 0.8 % (1.5-5.0); GRAN # 3.89 (1.4-6.5); HEMATOCRIT 35.6 % (36.0-48.0); LYMPH # 0.8 (1.2-3.4); MEAN CELL VOLUME 94.4 fL (80.0-105.0); MEAN CORPUSCULAR HEMOGLOBIN 30.5 pg (25.0-35.0); MEAN CORPUSCULAR HGB CONC 32.3 g/dl (31.0-37.0); MEAN PLATELET VOLUME 8.6 fl (7.0-11.0); MONO # 0.3 (0.1-0.6); MONO % 5.8 % (1.0-6.0); PLATELET COUNT 216 10^3/uL (120.0-450.0); RED CELL DISTRIBUTION WIDTH 13.2 % (11.5-14.5)
[2017-05-17 17:03] LABS: URINE APPEARANCE CLEAR (CLEAR); URINE COLOR YELLOW (YELLOW)
[2017-05-17 17:05] LABS: VENOUS BLOOD GAS BASE EXCESS 7.8 mmol/L (0.0-2.0); VENOUS BLOOD PH 7.42 (7.32-7.43)
[2017-05-17 17:07] LABS: INR 1.02 (0.93-1.08); PARTIAL THROMBOPLASTIN TIME 23.9 Seconds (23.7-30.8)
[2017-05-17 17:12] LABS: ALB/GLOB RATIO 1.5 (1.1-1.8); ALKALINE PHOSPHATASE 65 U/L (38-133); ALT/SGPT 44 U/L (7-56); AST/SGOT 48 U/L (15-39); BILIRUBIN,TOTAL 0.5 mg/dL (0.2-1.3); BLOOD UREA NITROGEN 20 mg/dL (7-21); CALCIUM 9.8 mg/dL (8.4-10.5); CARBON DIOXIDE 32 mmol/L (21-33); CHLORIDE 103 mmol/L (98-107); GFR AFRICAN-AMERICAN > 60; GLUCOSE,RANDOM 144 mg/dL (70-110); MAGNESIUM 1.9 mg/dL (1.7-2.2); POTASSIUM 3.8 mmol/L (3.6-5.0); SODIUM 141 mmol/L (132-148); TOTAL PROTEIN 6.5 g/dL (5.8-8.3)
[2017-05-17 17:23] LABS: TROPONIN I 0.02 ng/mL
[2017-05-17 17:37] LABS: URINE BACTERIA MOD (NEG); URINE CALCIUM OXALATE CRYSTALS RARE /hpf; URINE EPITHELIAL CELLS 0 - 2 /hpf (0-5); URINE WBC 0 - 2 /hpf (0-6)
[2017-05-17] MEDS ORDERED: Iohexol 240 (50 ml) ONE (19:28)
--- NOTE | 2017-05-17 19:42 | CARD ---
APPROVED REPORT EKG Measurement Heart [id number] <Conclusion> Sinus tachycardia Voltage criteria for left ventricular hypertrophy Nonspecific T wave abnormality Abnormal ECG
[2017-05-17] MEDS ORDERED: Iodixanol 320 MG/ML 100 ML BOTTLE IV ONE (20:16)
--- NOTE | 2017-05-17 21:05 | CT ---
EXAM: CT Angiography Chest With Intravenous Contrast CLINICAL HISTORY: 66 years old, female; Signs and symptoms; Other: Tachycardia with fatigue; lymphoma TECHNIQUE: Axial computed tomographic angiography images of the chest with intravenous contrast using pulmonary embolism protocol. This CT exam was performed using one or more of the following dose reduction techniques: automated exposure control, adjustment of the mA and/or kV according to patient size, and/or use of iterative reconstruction technique. MIP reconstructed images were created and reviewed. Coronal and sagittal reformatted images were created and reviewed. CONTRAST: 100 mL of omni 320 administered intravenously. EXAM DATE/TIME: 05/17/2017 5:30 PM COMPARISON: CT - ANGIO CHEST PE PROTOCOL 03/23/2017 3:21:53 PM FINDINGS: Heart, aorta and Pulmonary arteries: The heart is mildly enlarged. There are coronary calcifications.There is no aneurysm or dissection.There are vascular calcifications. There are no central pulmonary emboli. Streak and motion limit evaluation of peripheral vessels. There are no large peripheral pulmonary emboli Lungs and pleural spaces: Trachea and main bronchi are patent. There is minimal apical pleural scarring. Motion artifact degrades image quality.Streak artifact degrades image quality. There is no lobar or segmental consolidation. There is left lower lobe retrocardiac atelectasis. There is scarring at the lung bases. There are no effusions. Mediastinum: The esophagus is unremarkable. There is a small hiatal hernia. There no pathologically enlarged mediastinal or hilar nodes. Thyroid: Thyroid is not optimally demonstrated. Bones/joints: Bony structures are osteopenic.There are degenerative changes in the osseus structures. Soft tissues: There is an incompletely imaged 3.5 x 1.8 x 3.2 cm cystic lesion medial to the left femoral head and inferior to the acromium. She there is right axillary adenopathy. Upper abdomen: There is a low attenuation left renal lesion with rim calcification, not a cyst by CT criteria. Both adrenals are nodular. Tubes, lines and devices: There is a Port-A-Cath in the right chest wall. There is a right jugular catheter tip in the right atrium. IMPRESSION: Mild cardiomegaly and atherosclerotic disease; no aneurysm, dissection or pulmonary emboli Indeterminate left renal lesion; axillary adenopathy right greater than left; cystic mass at the left shoulder possible bursa Additional findings as described above.
[2017-05-17] MEDS ORDERED: Labetalol 5 mg/ml Inj 20ML IV STA (21:38)
[2017-05-17] MEDS ORDERED: Labetalol 5 mg/ml Inj 20ML ONE (21:41)
[2017-05-18] MEDS ORDERED: Labetalol 5 mg/ml Inj 20ML IV ONE (06:26)
--- NOTE | 2017-05-18 06:28 | CP.PCM.PN ---
Subjective - Date & Time of Evaluation Date of Evaluation: 05/18/17 Time of Evaluation: 06:27 - Subjective Subjective: Patient was seen at bedside. Nurse had called because heart rate was 130/min and blood pressure was 151/101. Patient offers no complaints. Denies chest pain, sob, nausea, palpitation, head ache,dizziness. Pertinent medical record was reviewed. This 66 year old woman was admitted with cough, congestion, PNA. Has PMH of B- cell lymphoma, COPD, HTN, DM II . Objective - Vital Signs/Intake and Output Vital Signs (last 24 hours): Temp Pulse Resp BP Pulse Ox 97.9 F 115 H 18 148/92 H 97 05/18/17 00:02 05/18/17 02:00 05/18/17 00:02 05/18/17 00:02 05/17/17 22:32 Intake and Output: 05/17/17 05/18/17 18:59 06:59 Intake Total 0 Output Total 400 Balance -400 - Labs Labs: PT 11.0 Seconds (9.9-11.8) 05/17/17 16:45 INR 1.02 (0.93-1.08) 05/17/17 16:45 APTT 23.9 Seconds (23.7-30.8) 05/17/17 16:45 - Constitutional Appears: Well, No Acute Distress - Head Exam Head Exam: ATRAUMATIC, NORMAL INSPECTION, NORMOCEPHALIC - Eye Exam Eye Exam: Normal appearance - ENT Exam ENT Exam: Normal External Ear Exam - Neck Exam Neck Exam: Normal Inspection - Respiratory Exam Respiratory Exam: NORMAL BREATHING PATTERN - Cardiovascular Exam Cardiovascular Exam: absent: JVD - GI/Abdominal Exam GI & Abdominal Exam: absent: Distended - Rectal Exam Rectal Exam: Deferred - Exam Additional comments: Above deferred. - Extremities Exam Extremities Exam: Normal Inspection - Back Exam Back Exam: NORMAL INSPECTION - Neurological Exam Neurological Exam: Alert, Awake - Psychiatric Exam Psychiatric exam: Normal Affect, Normal Mood - Skin Skin Exam: Normal Color Assessment and Plan - Assessment and Plan (Free Text) Assessment: Tachyarrhythmia. Elevated blood pressure reading. HTN. B-Cell lymphoma. COPD. DM II . Plan: Lopressor 5 mg IV was given. Continue present management.
--- NOTE | 2017-05-18 07:21 | CT ---
PROCEDURE: CT HEAD WITHOUT CONTRAST. HISTORY: general weakness COMPARISON: 05/12/2017 TECHNIQUE: Axial computed tomography images were obtained through the head/brain without intravenous contrast. Radiation dose: Total exam DLP = 677 mGy-cm. This CT exam was performed using one or more of the following dose reduction techniques: Automated exposure control, adjustment of the mA and/or kV according to patient size, and/or use of iterative reconstruction technique. FINDINGS: HEMORRHAGE: No intracranial hemorrhage. BRAIN: No mass effect or edema. Chronic microvascular ischemic disease. VENTRICLES: Unremarkable. No hydrocephalus. CALVARIUM: Unremarkable. PARANASAL SINUSES: Unremarkable as visualized. No significant inflammatory changes. MASTOID AIR CELLS: Diffuse right mastoid air cell opacification. OTHER FINDINGS: None. IMPRESSION: No acute hemorrhage.
[2017-05-18] MEDS ORDERED: Barium Sulfate Susp 2.1% w/v, 2.0% w/w 450 mL Bottle PO ONE (10:28)
--- NOTE | 2017-05-18 11:04 | RAD ---
HISTORY: weakness COMPARISON: 05/14/2017 FINDINGS: LUNGS: No active pulmonary disease. PLEURA: No significant pleural effusion identified, no pneumothorax apparent. CARDIOVASCULAR: Normal. OSSEOUS STRUCTURES: No significant abnormalities. VISUALIZED UPPER ABDOMEN: Normal. OTHER FINDINGS: Right-sided Port-A-Cath IMPRESSION: No active disease.
[2017-05-18] MEDS ORDERED: Iohexol 350 MG/100 ML VIAL ONE (11:05)
[2017-05-18] MEDS ORDERED: Metoprolol 1 mg/ml Inj IVP ONE ×2 (11:22→16:47)
[2017-05-18] MEDS: Amoxicillin-Clav 500-125 mg Tab PO SCH ×2 (13:00→21:15)
--- NOTE | 2017-05-18 15:03 | CT ---
PROCEDURE: CT Abdomen and Pelvis with contrast HISTORY: l renal lesion COMPARISON: Nonenhanced CT 10/04/2016 TECHNIQUE: Contrast dose: 100 cc of Omni 300 Radiation dose: Total exam DLP = 241 mGy-cm. This CT exam was performed using one or more of the following dose reduction techniques: Automated exposure control, adjustment of the mA and/or kV according to patient size, and/or use of iterative reconstruction technique. FINDINGS: LOWER THORAX: Unremarkable. LIVER: Unremarkable. No gross lesion or ductal dilatation. GALLBLADDER AND BILE DUCTS: Unremarkable. PANCREAS: Unremarkable. No gross lesion or ductal dilatation. SPLEEN: Unremarkable. ADRENALS: Unremarkable. No mass. KIDNEYS AND URETERS: There is a calcified left renal cystic mass measuring 16 mm in diameter. This is unchanged. VASCULATURE: Unremarkable. No aortic aneurysm. BOWEL: Unremarkable. No obstruction. No gross mural thickening. There is a moderate degree of constipation APPENDIX: Normal appendix. PERITONEUM: Unremarkable. No free fluid. No free air. LYMPH NODES: Unremarkable. No enlarged lymph nodes. BLADDER: Unremarkable. REPRODUCTIVE: Unremarkable. BONES: No acute fracture. OTHER FINDINGS: None. IMPRESSION: Stable appearance of left renal lesion. Moderate constipation
[2017-05-18] MEDS ORDERED: Metoprolol 1 mg/ml Inj IVP STA (21:37)
--- NOTE | 2017-05-19 00:08 | CP.PCM.PN ---
Subjective - Date & Time of Evaluation Date of Evaluation: 05/19/17 Time of Evaluation: 00:05 - Subjective Subjective: Had received a call from nurse Roque that patient's heart rate was in the 130's and blood pressure was elevated. I had ordered lopressor 5 mg IV at that time. Came to see patient. She is lying in the bed almost perpedicular to bed.Complains of little neck pain. Has no other complaints. Medical record was reviewed. This 66 year old woman was admitted with cough, congestion, headache, stuffy nose , PNAl. Has PMH of B cell lymphoma, HTN,seizure,COPD,CAD. Objective - Vital Signs/Intake and Output Vital Signs (last 24 hours): Temp Pulse Resp BP Pulse Ox 99.4 F 118 H 18 147/99 H 98 05/19/17 00:01 05/19/17 00:01 05/19/17 00:01 05/19/17 00:01 05/19/17 00:01 Intake and Output: 05/18/17 05/19/17 18:59 06:59 Intake Total 240 Output Total 150 Balance 90 - Medications Medications: Current Medications Amlodipine Besylate (Norvasc) 10 mg PO DAILY [facility] Amoxicillin/Clavulanate Potassium (Augmentin 500 Mg-125 Mg Tab) 1 tab PO Q8 [facility] PRN Reason: Protocol Last Admin: 05/18/17 21:15 Dose: 1 tab Famotidine (Pepcid) 20 mg PO DAILY [facility] Lamotrigine (Lamictal) 200 mg PO BID [facility] Last Admin: 05/18/17 17:04 Dose: 200 mg Levetiracetam (Keppra) 500 mg PO BID [facility] Last Admin: 05/18/17 17:04 Dose: 500 mg Lisinopril (Zestril) 20 mg PO DAILY [facility] Metoprolol Succinate (Toprol Xl) 100 mg PO BRK [facility] Potassium Chloride (K-Dur 20 Meq Er Tab) 20 meq PO DAILY [facility] Prednisone (Prednisone Tab) 5 mg PO DAILY [facility] - Labs Labs: PT 11.0 Seconds (9.9-11.8) 05/17/17 16:45 INR 1.02 (0.93-1.08) 05/17/17 16:45 APTT 23.9 Seconds (23.7-30.8) 06/28/17 16:45 - Constitutional Appears: Well, No Acute Distress - Head Exam Head Exam: ATRAUMATIC, NORMAL INSPECTION, NORMOCEPHALIC - Eye Exam Eye Exam: Normal appearance - ENT Exam ENT Exam: Normal External Ear Exam - Neck Exam Neck Exam: Normal Inspection - Respiratory Exam Respiratory Exam: NORMAL BREATHING PATTERN - GI/Abdominal Exam GI & Abdominal Exam: absent: Distended - Rectal Exam Rectal Exam: Deferred - Extremities Exam Extremities Exam: Normal Inspection - Back Exam Back Exam: NORMAL INSPECTION - Neurological Exam Neurological Exam: Alert, Awake - Psychiatric Exam Psychiatric exam: Normal Affect, Normal Mood - Skin Skin Exam: Normal Color Assessment and Plan - Assessment and Plan (Free Text) Assessment: Elevated blood pressure reading. Sinus tachycardia. B Cell lymphoma. HTN. COPD. DM Seizure disorder. Plan: Lopressor 5 mg IV given. Tylenol 650 mg po stat. Continue present management.
[2017-05-19] MEDS: Amoxicillin-Clav 500-125 mg Tab PO SCH ×2 (05:14→14:09)
[2017-05-19] MEDS ORDERED: Metoprolol 1 mg/ml Inj IVP STA (05:45)
[2017-05-19 05:56] VITALS: O2SAT 96
[2017-05-19 06:13] LABS: ADD MANUAL DIFF? NO
[2017-05-19 06:18] LABS: BASO # 0.02 K/mm3 (0.0-2.0); BASO % 0.6 % (0.0-3.0); EOS % 1.2 % (1.5-5.0); GRAN # 2.28 (1.4-6.5); HEMATOCRIT 37.3 % (36.0-48.0); LYMPH # 0.8 (1.2-3.4); LYMPH % 23.2 % (22.0-35.0); MEAN CELL VOLUME 93.3 fL (80.0-105.0); MEAN CORPUSCULAR HGB CONC 32.2 g/dl (31.0-37.0); MEAN PLATELET VOLUME 8.8 fl (7.0-11.0); MONO # 0.3 (0.1-0.6); PLATELET COUNT 197 10^3/uL (120.0-450.0); RED CELL DISTRIBUTION WIDTH 13.2 % (11.5-14.5); WHITE BLOOD COUNT 3.5 10^3/ul (4.5-11.0)
[2017-05-19 06:30] LABS: ALB/GLOB RATIO 1.4 (1.1-1.8); ALKALINE PHOSPHATASE 58 U/L (38-133); ALT/SGPT 43 U/L (7-56); AST/SGOT 47 U/L (15-39); BILIRUBIN,TOTAL 0.7 mg/dL (0.2-1.3); BLOOD UREA NITROGEN 14 mg/dL (7-21); CALCIUM 9.6 mg/dL (8.4-10.5); CARBON DIOXIDE 34 mmol/L (21-33); CHLORIDE 99 mmol/L (98-107); GFR AFRICAN-AMERICAN > 60; GLUCOSE,RANDOM 102 mg/dL (70-110); POTASSIUM 3.2 mmol/L (3.6-5.0); SODIUM 138 mmol/L (132-148); TOTAL PROTEIN 6.4 g/dL (5.8-8.3)
[2017-05-19] MEDS ORDERED: Metoprolol Succinate 100 mg XL Tab PO SCH (08:00)
[2017-05-19] MEDS ORDERED: Potassium Chloride 20 mEq ER Tab PO SCH (10:00)
[2017-05-19] MEDS ORDERED: Potassium Chloride 20 mEq ER Tab PO STA (10:10)
[2017-05-19 11:32] VITALS: RESP 18
--- NOTE | 2017-05-19 14:21 | CP.PCM.PN ---
<Peterson Jain - Last Filed: 05/19/17 14:10> Subjective - Date & Time of Evaluation Date of Evaluation: 05/19/17 Time of Evaluation: 14:10 - Subjective Subjective: Patient seen and examined. Patient complains of generalized weakness. States she is willing to go to [facility]. Currently she denies chest pain, shortness of breath, n/v/d. Sinus tachycardia noted. Objective - Vital Signs/Intake and Output Vital Signs (last 24 hours): Temp Pulse Resp BP Pulse Ox 98 F 110 H 18 147/87 96 05/19/17 11:31 05/19/17 11:31 05/19/17 11:31 05/19/17 11:31 05/19/17 05:55 - Medications Medications: Current Medications Amlodipine Besylate (Norvasc) 10 mg PO DAILY [facility] Last Admin: 05/19/17 10:15 Dose: 10 mg Amoxicillin/Clavulanate Potassium (Augmentin 500 Mg-125 Mg Tab) 1 tab PO Q8 [facility] PRN Reason: Protocol Last Admin: 05/19/17 05:14 Dose: 1 tab Famotidine (Pepcid) 20 mg PO DAILY [facility] Last Admin: 05/19/17 10:15 Dose: 20 mg Lamotrigine (Lamictal) 200 mg PO BID [facility] Last Admin: 05/19/17 10:14 Dose: 200 mg Levetiracetam (Keppra) 500 mg PO BID [facility] Last Admin: 05/19/17 10:14 Dose: 500 mg Lisinopril (Zestril) 20 mg PO DAILY [facility] Last Admin: 05/19/17 10:15 Dose: 20 mg Metoprolol Succinate (Toprol Xl) 100 mg PO BRK [facility] Last Admin: 05/19/17 08:00 Dose: 100 mg Potassium Chloride (K-Dur 20 Meq Er Tab) 20 meq PO DAILY [facility] Last Admin: 05/19/17 10:14 Dose: 20 meq Prednisone (Prednisone Tab) 5 mg PO DAILY [facility] Last Admin: 05/19/17 10:15 Dose: 5 mg - Labs Labs: PT 11.0 Seconds (9.9-11.8) 05/17/17 16:45 INR 1.02 (0.93-1.08) 05/17/17 16:45 APTT 23.9 Seconds (23.7-30.8) 05/17/17 16:45 - Constitutional Appears: Non-toxic, No Acute Distress - Head Exam Head Exam: ATRAUMATIC, NORMOCEPHALIC - Eye Exam Eye Exam: EOMI, PERRL - ENT Exam ENT Exam: Mucous Membranes Moist - Neck Exam Neck Exam: Full ROM, Normal Inspection - Respiratory Exam Respiratory Exam: Clear to Ausculation Bilateral. absent: Rales, Rhonchi, Wheezes - Cardiovascular Exam Cardiovascular Exam: Tachycardia, REGULAR RHYTHM, +S1, +S2 - GI/Abdominal Exam GI & Abdominal Exam: Soft, Normal Bowel Sounds. absent: Tenderness - Extremities Exam Extremities Exam: Full ROM. absent: Calf Tenderness, Pedal Edema - Neurological Exam Neurological Exam: Alert, Awake, Oriented x3 - Psychiatric Exam Psychiatric exam: Normal Affect, Normal Mood - Skin Skin Exam: Dry, Warm Assessment and Plan - Assessment and Plan (Free Text) Assessment: This is a 66 y/o female with hx lymphoma s/p chemo and radiotherapy, hx asthma, seizures presenting with generalized weakness in the setting of malignancy and overall physical deconditioning. generalized weakness 2/2 chronic illness - PT to evaluate - case management on board. patient will need ANTHONY. sinus tachycardia - unclear origin - no apparent sign of infection or sepsis - cardiology consulted - CT chest negative for PE hx lymphoma treated with chemotherapy, radiotherapy - followed by Dr. Bynum - cT reveals unchanged renal lesion hx seizures - continue keppra hx HTN - continue Norvasc 10mg daily - continue lisinopril 20mg daily PPX - Pepcid - scds Patient seen and discussed with attending. <Cony Rausch - Last Filed: 05/19/17 14:40> Objective - Vital Signs/Intake and Output Vital Signs (last 24 hours): Temp Pulse Resp BP Pulse Ox 98 F 110 H 18 147/87 96 05/19/17 11:31 05/19/17 11:31 05/19/17 11:31 05/19/17 11:31 05/19/17 05:55 - Medications Medications: Current Medications Amlodipine Besylate (Norvasc) 10 mg PO DAILY [facility] Last Admin: 05/19/17 10:15 Dose: 10 mg Amoxicillin/Clavulanate Potassium (Augmentin 500 Mg-125 Mg Tab) 1 tab PO Q8 [facility] PRN Reason: Protocol Last Admin: 05/19/17 14:09 Dose: 1 tab Docusate Sodium (Colace) 100 mg PO BID [facility] Famotidine (Pepcid) 20 mg PO DAILY [facility] Last Admin: 05/19/17 10:15 Dose: 20 mg Lamotrigine (Lamictal) 200 mg PO BID [facility] Last Admin: 05/19/17 10:14 Dose: 200 mg Levetiracetam (Keppra) 500 mg PO BID [facility] Last Admin: 05/19/17 10:14 Dose: 500 mg Lisinopril (Zestril) 20 mg PO DAILY [facility] Last Admin: 05/19/17 10:15 Dose: 20 mg Metoprolol Succinate (Toprol Xl) 100 mg PO BRK [facility] Last Admin: 05/19/17 08:00 Dose: 100 mg Polyethylene Glycol (Miralax) 17 gm PO DAILY [facility] Potassium Chloride (K-Dur 20 Meq Er Tab) 20 meq PO DAILY [facility] Last Admin: 05/19/17 10:14 Dose: 20 meq Prednisone (Prednisone Tab) 5 mg PO DAILY [facility] Last Admin: 05/19/17 10:15 Dose: 5 mg - Labs Labs: PT 11.0 Seconds (9.9-11.8) 05/17/17 16:45 INR 1.02 (0.93-1.08) 05/17/17 16:45 APTT 23.9 Seconds (23.7-30.8) 05/17/17 16:45 Attending/Attestation - Attestation I have personally seen and examined this patient.: Yes I have fully participated in the care of the patient.: Yes I have reviewed all pertinent clinical information, including history, physical exam and plan: Yes Notes (Text): 05/19/17 14:32 attending note; Patient seen and examined with resident. Patient is a 66-year-old female with a past medical history of lymphoma, status post chemotherapy, sinus tachycardia, gait instability, sinusitis is admitted with generalized weakness. Patient is tolerating diet. PT evaluation appreciated. Patient is willing to go to [facility]. appraisal manager evaluation requested. sinus tachycardia; on metoprolol. No evidence of infection. CT angios negative for PE. Monitor closely. Cardiology evaluation with Dr. Barrera requested. possible transfer to [facility] tomorrow if stable. Upon discharge the patient will follow up with PMD and follow-up with oncology . 05/19/17 14:39
[2017-05-19] MEDS ORDERED: POLYETHYLENE GLYCOL 3350 17 GM/Dose PACKET PO SCH (14:30)
--- NOTE | 2017-05-19 16:08 | CP.PCM.CON ---
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 presented with generalized weakness and noted to be in sinus tachycardia No c/p or SOB Review of Systems - Constitutional Constitutional: Fatigue, Lethargy, Malaise - Cardiovascular Cardiovascular: Rapid Heart Rate - Respiratory Respiratory: absent: As Per HPI, Cough, Dyspnea, Hemoptysis, Dyspnea on Exertion , Wheezing, Snoring, Stridor, Pain on Inspiration, Chest Congestion, Excessive Mucous Production, Change in Mucous Color, Pain with Coughing, Other - Gastrointestinal Gastrointestinal: absent: As Per HPI, Abdominal Pain, Belching, Bloating, Change in Bowel Habits, Change in Stool Character, Coffee Ground Emesis, Constipation, Cramping, Diarrhea, Dyspepsia, Dysphagia, Early Satiety, Excessive Flatus, Fecal Incontinence, Heartburn, Hematemesis, Hematochezia, Loose Stools, Melena, Nausea, Odynophagia, Temesmus, Vomiting, Other - Neurological Neurological: Dizziness Past Patient History - Infectious Disease Hx of Infectious Diseases: None - Past Medical History & Family History Past Medical History?: Yes - Past Social History Smoking Status: Never Smoked - CARDIAC Hx Cardiac Disorders: Yes (CAD) Hx Hypertension: Yes Other/Comment: h/o CAD - PULMONARY Hx Chronic Obstructive Pulmonary Disease (COPD): Yes - NEUROLOGICAL Hx Neurological Disorder: Yes (BRAIN AND NECK MASS-BRAIN CA WITH RADIATION) HX Cerebrovascular Accident: No Hx Dizziness: Yes (SYNCOPE) - HEENT Hx HEENT Problems: Yes Hx Cataracts: Yes (bilateral) - RENAL Hx Pyelonephritis: Yes Hx Renal Failure: No - ENDOCRINE/METABOLIC Hx Diabetes Mellitus Type 1: No Hx Diabetes Mellitus Type 2: No Hx Hypothyroidism: No - HEMATOLOGICAL/ONCOLOGICAL Hx Cancer: Yes (Brain) - INTEGUMENTARY Hx Dermatological Problems: No - MUSCULOSKELETAL/RHEUMATOLOGICAL Hx Falls: Yes - GASTROINTESTINAL Hx Gastroesophageal Reflux: Yes - GENITOURINARY/GYNECOLOGICAL Hx Genitourinary Disorders: Yes (HYSTERECTOMY) Hx Incontinence: Yes - PSYCHIATRIC Hx Psychophysiologic Disorder: Yes Hx Anxiety: Yes Hx Substance Use: No - SURGICAL HISTORY Hx Hysterectomy: Yes Other/Comment: Port in R chest - ANESTHESIA Hx Anesthesia: Yes Hx Anesthesia Reactions: No Hx Malignant Hyperthermia: No Meds Allergies/Adverse Reactions: Allergies Allergy/AdvReac Type Severity Reaction Status Date / Time No Known Allergies Allergy Verified 05/17/17 16:20 - Medications Medications: Current Medications Amlodipine Besylate (Norvasc) 10 mg PO DAILY [facility] Last Admin: 05/19/17 10:15 Dose: 10 mg Amoxicillin/Clavulanate Potassium (Augmentin 500 Mg-125 Mg Tab) 1 tab PO Q8 [facility] PRN Reason: Protocol Last Admin: 05/19/17 14:09 Dose: 1 tab Docusate Sodium (Colace) 100 mg PO BID [facility] Doxycycline Hyclate (Doryx) 100 mg PO Q12 [facility] PRN Reason: Protocol Famotidine (Pepcid) 20 mg PO DAILY [facility] Last Admin: 05/19/17 10:15 Dose: 20 mg Lamotrigine (Lamictal) 200 mg PO BID [facility] Last Admin: 05/19/17 10:14 Dose: 200 mg Levetiracetam (Keppra) 500 mg PO BID [facility] Last Admin: 05/19/17 10:14 Dose: 500 mg Lisinopril (Zestril) 20 mg PO DAILY [facility] Last Admin: 05/19/17 10:15 Dose: 20 mg Metoprolol Succinate (Toprol Xl) 100 mg PO BRK [facility] Last Admin: 05/19/17 08:00 Dose: 100 mg Polyethylene Glycol (Miralax) 17 gm PO DAILY [facility] Last Admin: 05/19/17 14:50 Dose: 17 gm Potassium Chloride (K-Dur 20 Meq Er Tab) 20 meq PO DAILY [facility] Last Admin: 05/19/17 10:14 Dose: 20 meq Prednisone (Prednisone Tab) 5 mg PO DAILY [facility] Last Admin: 05/19/17 10:15 Dose: 5 mg Physical Exam - Constitutional Appears: In Acute Distress - Head Exam Head Exam: NORMAL INSPECTION - Eye Exam Eye Exam: Normal appearance - Neck Exam Neck exam: Positive for: Normal Inspection - Respiratory Exam Respiratory Exam: Clear to Auscultation Bilateral - Cardiovascular Exam Cardiovascular Exam: REGULAR RHYTHM - GI/Abdominal Exam GI & Abdominal Exam: Normal Bowel Sounds - Extremities Exam Extremities exam: Positive for: normal inspection Results - Vital Signs Recent Vital Signs: Last Vital Signs Temp 98 F 05/19/17 11:31 Pulse 110 H 05/19/17 11:31 Resp 18 05/19/17 11:31 BP 147/87 05/19/17 11:31 Pulse Ox 96 05/19/17 05:55 - Labs Result Diagrams: 05/19/17 06:00 05/19/17 06:00 Assessment & Plan - Assessment and Plan (Free Text) Assessment: Sinus Tachycardia, r/o Sepsis patient has a mirta Cath HypoK+ HTN COPB [employer] lymphoma Mastoiditis Plan: Cont. Amlodipine Besylate (Norvasc) 10 mg PO DAILY [facility] Last Admin: 05/19/17 10:15 Dose: 10 mg Amoxicillin/Clavulanate Potassium (Augmentin 500 Mg-125 Mg Tab) 1 tab PO Q8 [facility] PRN Reason: Protocol Last Admin: 05/19/17 14:09 Dose: 1 tab Docusate Sodium (Colace) 100 mg PO BID [facility] Doxycycline Hyclate (Doryx) 100 mg PO Q12 [facility] PRN Reason: Protocol Famotidine (Pepcid) 20 mg PO DAILY [facility] Last Admin: 05/19/17 10:15 Dose: 20 mg Lamotrigine (Lamictal) 200 mg PO BID [facility] Last Admin: 05/19/17 10:14 Dose: 200 mg Levetiracetam (Keppra) 500 mg PO BID [facility] Last Admin: 05/19/17 10:14 Dose: 500 mg Lisinopril (Zestril) 20 mg PO DAILY [facility] Last Admin: 05/19/17 10:15 Dose: 20 mg Metoprolol Succinate (Toprol Xl) 100 mg PO BRK [facility] Last Admin: 05/19/17 08:00 Dose: 100 mg Polyethylene Glycol (Miralax) 17 gm PO DAILY [facility] Last Admin: 05/19/17 14:50 Dose: 17 gm Potassium Chloride (K-Dur 20 Meq Er Tab) 20 meq PO DAILY [facility] Last Admin: 05/19/17 10:14 Dose: 20 meq Prednisone (Prednisone Tab) 5 mg PO DAILY [facility] Last Admin: 05/19/17 10:15 Dose: 5 mg F/U Blood culture Discussed with Karla Rausch was ordered
--- NOTE | 2017-05-19 17:09 | CP.PCM.DIS ---
<Peterson Jain - Last Filed: 05/19/17 17:05> Provider - Provider Date of Admission: 05/19/17 07:46 Attending physician: Cony Rausch MD Primary care physician: Alex Butt MD Consults: cardiology - Dr. Avery Time Spent in preparation of Discharge (in minutes): 35 Diagnosis - Discharge Diagnosis (1) Tachycardia Status: Acute (2) Weakness Status: Acute Hospital Course - Lab Results Lab Results: Most Recent Lab Values WBC 3.5 10^3/ul (4.5-11.0) L D 05/19/17 06:00 RBC 4.00 10^6/uL (3.5-6.1) 05/19/17 06:00 Hgb 12.0 gm/dL (12.0-16.0) 05/19/17 06:00 Hct 37.3 % (36.0-48.0) 05/19/17 06:00 MCV 93.3 fL (80.0-105.0) 05/19/17 06:00 MCH 30.0 pg (25.0-35.0) 05/19/17 06:00 MCHC 32.2 g/dl (31.0-37.0) 05/19/17 06:00 RDW 13.2 % (11.5-14.5) 05/19/17 06:00 Plt Count 197 10^3/uL (120.0-450.0) 05/19/17 06:00 MPV 8.8 fl (7.0-11.0) 05/19/17 06:00 Gran % 66.0 % (50.0-68.0) 05/19/17 06:00 Lymph % (Auto) 23.2 % (22.0-35.0) 05/19/17 06:00 Major % (Auto) 9.0 % (1.0-6.0) H 05/19/17 06:00 Eos % (Auto) 1.2 % (1.5-5.0) L 05/19/17 06:00 Baso % (Auto) 0.6 % (0.0-3.0) 05/19/17 06:00 Gran # 2.28 (1.4-6.5) 05/19/17 06:00 Lymph # 0.8 (1.2-3.4) L 05/19/17 06:00 Major # 0.3 (0.1-0.6) 05/19/17 06:00 Eos # 0.0 (0.0-0.7) 05/19/17 06:00 Baso # 0.02 K/mm3 (0.0-2.0) 05/19/17 06:00 PT 11.0 Seconds (9.9-11.8) 05/17/17 16:45 INR 1.02 (0.93-1.08) 05/17/17 16:45 APTT 23.9 Seconds (23.7-30.8) 05/17/17 16:45 pO2 54 mm/Hg (30-55) 05/17/17 20:45 VBG pH 7.40 (7.32-7.43) 05/17/17 20:45 VBG pCO2 54.0 (40-60) 05/17/17 20:45 VBG HCO3 33.4 mmol/l (21-28) H 05/17/17 20:45 VBG Total CO2 35.1 mmol.L (22-28) H 05/17/17 20:45 VBG O2 Sat (Calc) 92.0 % (40-65) H 05/17/17 20:45 VBG Base Excess 7.0 mmol/L (0.0-2.0) H 05/17/17 20:45 VBG Potassium 3.7 mmol/L (3.6-5.2) 05/17/17 20:45 Sodium 141.0 mmol/L (132-148) 05/17/17 20:45 Chloride 104.0 mmol/L (98-107) 05/17/17 20:45 Glucose 105 mg/dl (65-105) 05/17/17 20:45 Lactate 1.3 mmol/L (0.7-2.1) 05/17/17 20:45 FiO2 21.0 % 05/17/17 20:45 Sodium 138 mmol/L (132-148) 05/19/17 06:00 Potassium 3.2 mmol/L (3.6-5.0) L 05/19/17 06:00 Chloride 99 mmol/L (98-107) 05/19/17 06:00 Carbon Dioxide 34 mmol/L (21-33) H 05/19/17 06:00 Anion Gap 8 (10-20) L 05/19/17 06:00 BUN 14 mg/dL (7-21) 05/19/17 06:00 Creatinine 0.9 mg/dL (0.5-1.4) 05/19/17 06:00 Est GFR ( Amer) > 60 05/19/17 06:00 Est GFR (Non-Af Amer) > 60 05/19/17 06:00 Random Glucose 102 mg/dL (70-110) 05/19/17 06:00 Calcium 9.6 mg/dL (8.4-10.5) 05/19/17 06:00 Magnesium 1.9 mg/dL (1.7-2.2) 05/17/17 16:45 Total Bilirubin 0.7 mg/dL (0.2-1.3) 05/19/17 06:00 AST 47 U/L (15-39) H 05/19/17 06:00 ALT 43 U/L (7-56) 05/19/17 06:00 Alkaline Phosphatase 58 U/L (38-133) 05/19/17 06:00 Lactate Dehydrogenase 1548 U/L (333-699) H 05/17/17 16:45 Total Creatine Kinase 115 U/L (35-230) 05/17/17 16:45 Troponin I 0.02 ng/mL D 05/17/17 16:45 Total Protein 6.4 g/dL (5.8-8.3) 05/19/17 06:00 Albumin 3.8 g/dL (3.0-4.8) 05/19/17 06:00 Globulin 2.7 gm/dL 05/19/17 06:00 Albumin/Globulin Ratio 1.4 (1.1-1.8) 05/19/17 06:00 Venous Blood Potassium 3.7 mmol/L (3.6-5.2) 05/17/17 20:45 Urine Color Yellow (YELLOW) 05/17/17 16:45 Urine Appearance Clear (CLEAR) 05/17/17 16:45 Urine pH 6.5 (4.7-8.0) 05/17/17 16:45 Ur Specific [place] 1.020 (1.005-1.035) 05/17/17 16:45 Urine Protein 30 mg/dL (<30 mg/dL) H 05/17/17 16:45 Urine Glucose (UA) Negative mg/dL (NEGATIVE) 05/17/17 16:45 Urine Ketones Negative mg/dL (NEGATIVE) 05/17/17 16:45 Urine Blood Negative (NEGATIVE) 05/17/17 16:45 Urine Nitrate Negative (NEGATIVE) 05/17/17 16:45 Urine Bilirubin Negative (NEGATIVE) 05/17/17 16:45 Urine Urobilinogen 0.2 E.U./dL (<1 E.U./dL) 05/17/17 16:45 Ur Leukocyte Esterase Negative [place]/uL (NEGATIVE) 05/17/17 16:45 Urine RBC 1 - 3 /hpf (0-2) 05/17/17 16:45 Urine WBC 0 - 2 /hpf (0-6) 05/17/17 16:45 Ur Epithelial Cells 0 - 2 /hpf (0-5) 05/17/17 16:45 Calcium Oxalate Crystal Rare /hpf 05/17/17 16:45 Urine Bacteria Mod (NEG) 05/17/17 16:45 - Hospital Course Hospital Course: 66 yo female with PMH of lymphoma, asthma, HTN and seizure presents to ED with fatigue and general weakness. She was recently in the hospital and was discharged about 1 week ago. Patient states her weakness started about 1 month ago however today she was having difficulty walking. She also reporst chronic cough. She denies chest pain, abd pain, nausea, vomiting, urinary symptoms. The patient was admitted for severe deconditioning. Physical therapy evaluated the patient and determined the patient suffered from gait dysfunction. PT states the patient would benefit from skilled PT intervention. Patient was found to exhibit sinus tachyardia on presentation. CT chest revealed no PE. CT head was negative for acute findings. The patient will be discharged to [facility] for physical rehabilitation. Discharge Exam - Head Exam Head Exam: NORMAL INSPECTION - Eye Exam Eye Exam: EOMI Pupil Exam: PERRL - ENT Exam ENT Exam: Mucous Membranes Moist - Respiratory Exam Respiratory Exam: Clear to PA & Lateral. absent: Rhonchi, Wheezes, Respiratory Distress - Cardiovascular Exam Cardiovascular Exam: REGULAR RHYTHM, +S1, +S2 - GI/Abdominal Exam GI & Abdominal Exam: Normal Bowel Sounds, Soft. absent: Tenderness - Extremities Exam Extremities exam: pedal pulses present - Neurological Exam Neurological exam: Alert, Oriented x3 - Psychiatric Exam Psychiatric exam: Normal Affect, Normal Mood - Skin Skin Exam: Dry, Warm Discharge Plan - Discharge Medications Prescriptions: Amoxicillin/Clavulanate [Augmentin 875 MG-125 MG] 1 tab PO BID #14 tab Docusate Sodium [Colace] 100 mg PO TID #20 capsule Doxycycline Hyclate 100 mg PO BID #14 capsule - Follow Up Plan Condition: FAIR Disposition: REHAB FACILITY/REHAB UNIT Instructions: Weakness (GEN) Additional Instructions: Transfer to [facility]. 1. Follow up with PMd . 2. Follow up with Dr. gonzalez cardiology. 3. Complete po augmentin and doxy for 1 week. 4. Please check TSH and FT4 next week. If tests abnormal get endocrinology evaluation. Referrals: Alex Butt MD [Primary Care Provider] - <Cony Rausch - Last Filed: 05/19/17 17:24> Provider - Provider Date of Admission: 05/19/17 07:46 Attending physician: Cony Rausch MD Primary care physician: Alex Butt MD [facility] Course - Lab Results Lab Results: Most Recent Lab Values WBC 3.5 10^3/ul (4.5-11.0) L D 05/19/17 06:00 RBC 4.00 10^6/uL (3.5-6.1) 05/19/17 06:00 Hgb 12.0 gm/dL (12.0-16.0) 05/19/17 06:00 Hct 37.3 % (36.0-48.0) 05/19/17 06:00 MCV 93.3 fL (80.0-105.0) 05/19/17 06:00 MCH 30.0 pg (25.0-35.0) 05/19/17 06:00 MCHC 32.2 g/dl (31.0-37.0) 05/19/17 06:00 RDW 13.2 % (11.5-14.5) 05/19/17 06:00 Plt Count 197 10^3/uL (120.0-450.0) 05/19/17 06:00 MPV 8.8 fl (7.0-11.0) 05/19/17 06:00 Gran % 66.0 % (50.0-68.0) 05/19/17 06:00 Lymph % (Auto) 23.2 % (22.0-35.0) 05/19/17 06:00 Major % (Auto) 9.0 % (1.0-6.0) H 05/19/17 06:00 Eos % (Auto) 1.2 % (1.5-5.0) L 05/19/17 06:00 Baso % (Auto) 0.6 % (0.0-3.0) 05/19/17 06:00 Gran # 2.28 (1.4-6.5) 05/19/17 06:00 Lymph # 0.8 (1.2-3.4) L 05/19/17 06:00 Major # 0.3 (0.1-0.6) 05/19/17 06:00 Eos # 0.0 (0.0-0.7) 05/19/17 06:00 Baso # 0.02 K/mm3 (0.0-2.0) 05/19/17 06:00 PT 11.0 Seconds (9.9-11.8) 05/17/17 16:45 INR 1.02 (0.93-1.08) 05/17/17 16:45 APTT 23.9 Seconds (23.7-30.8) 05/17/17 16:45 pO2 54 mm/Hg (30-55) 05/17/17 20:45 VBG pH 7.40 (7.32-7.43) 05/17/17 20:45 VBG pCO2 54.0 (40-60) 05/17/17 20:45 VBG HCO3 33.4 mmol/l (21-28) H 05/17/17 20:45 VBG Total CO2 35.1 mmol.L (22-28) H 05/17/17 20:45 VBG O2 Sat (Calc) 92.0 % (40-65) H 05/17/17 20:45 VBG Base Excess 7.0 mmol/L (0.0-2.0) H 05/17/17 20:45 VBG Potassium 3.7 mmol/L (3.6-5.2) 05/17/17 20:45 Sodium 141.0 mmol/L (132-148) 05/17/17 20:45 Chloride 104.0 mmol/L (98-107) 05/17/17 20:45 Glucose 105 mg/dl (65-105) 05/17/17 20:45 Lactate 1.3 mmol/L (0.7-2.1) 05/17/17 20:45 FiO2 21.0 % 05/17/17 20:45 Sodium 138 mmol/L (132-148) 05/19/17 06:00 Potassium 3.2 mmol/L (3.6-5.0) L 05/19/17 06:00 Chloride 99 mmol/L (98-107) 05/19/17 06:00 Carbon Dioxide 34 mmol/L (21-33) H 05/19/17 06:00 Anion Gap 8 (10-20) L 05/19/17 06:00 BUN 14 mg/dL (7-21) 05/19/17 06:00 Creatinine 0.9 mg/dL (0.5-1.4) 05/19/17 06:00 Est GFR ( Amer) > 60 05/19/17 06:00 Est GFR (Non-Af Amer) > 60 05/19/17 06:00 Random Glucose 102 mg/dL (70-110) 05/19/17 06:00 Calcium 9.6 mg/dL (8.4-10.5) 05/19/17 06:00 Magnesium 1.9 mg/dL (1.7-2.2) 05/17/17 16:45 Total Bilirubin 0.7 mg/dL (0.2-1.3) 05/19/17 06:00 AST 47 U/L (15-39) H 05/19/17 06:00 ALT 43 U/L (7-56) 05/19/17 06:00 Alkaline Phosphatase 58 U/L (38-133) 05/19/17 06:00 Lactate Dehydrogenase 1548 U/L (333-699) H 05/17/17 16:45 Total Creatine Kinase 115 U/L (35-230) 05/17/17 16:45 Troponin I 0.02 ng/mL D 05/17/17 16:45 Total Protein 6.4 g/dL (5.8-8.3) 05/19/17 06:00 Albumin 3.8 g/dL (3.0-4.8) 05/19/17 06:00 Globulin 2.7 gm/dL 05/19/17 06:00 Albumin/Globulin Ratio 1.4 (1.1-1.8) 05/19/17 06:00 Venous Blood Potassium 3.7 mmol/L (3.6-5.2) 05/17/17 20:45 Urine Color Yellow (YELLOW) 05/17/17 16:45 Urine Appearance Clear (CLEAR) 05/17/17 16:45 Urine pH 6.5 (4.7-8.0) 05/17/17 16:45 Ur Specific [place] 1.020 (1.005-1.035) 05/17/17 16:45 Urine Protein 30 mg/dL (<30 mg/dL) H 05/17/17 16:45 Urine Glucose (UA) Negative mg/dL (NEGATIVE) 05/17/17 16:45 Urine Ketones Negative mg/dL (NEGATIVE) 05/17/17 16:45 Urine Blood Negative (NEGATIVE) 05/17/17 16:45 Urine Nitrate Negative (NEGATIVE) 05/17/17 16:45 Urine Bilirubin Negative (NEGATIVE) 05/17/17 16:45 Urine Urobilinogen 0.2 E.U./dL (<1 E.U./dL) 05/17/17 16:45 Ur Leukocyte Esterase Negative [place]/uL (NEGATIVE) 05/17/17 16:45 Urine RBC 1 - 3 /hpf (0-2) 05/17/17 16:45 Urine WBC 0 - 2 /hpf (0-6) 05/17/17 16:45 Ur Epithelial Cells 0 - 2 /hpf (0-5) 05/17/17 16:45 Calcium Oxalate Crystal Rare /hpf 05/17/17 16:45 Urine Bacteria Mod (NEG) 05/17/17 16:45 Attending/Attestation - Attestation I have personally seen and examined this patient.: Yes I have fully participated in the care of the patient.: Yes I have reviewed all pertinent clinical information, including history, physical exam and plan: Yes Notes (Text): 05/19/17 17:20 attending note; Patient seen and examined with resident. Patient is a 66-year-old female with a past medical history of lymphoma, post chemotherapy, sinus tachycardia, gait instability, sinusitis is admitted with generalized weakness. Patient is tolerating diet. PT evaluation appreciated. Patient is willing to go to [facility]. 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 sinus tachycardia; on metoprolol. No evidence of infection. CT angios negative for PE. Monitor closely. Cardiology evaluation with Dr. Barrera appreciated. needs TSH and Ft4 to be checked in rehab. if abnormal needs endocrinology evaluation. transfer to [facility] today. Upon discharge the patient will follow up with PMD and follow-up with oncology . diagnosis; gait instability weakness lymphoma sinus tachycardia
[2017-05-19 21:41] VITALS: BP 144/91; PULSE 100; TEMP 98.1
== END 2017-05-19 22:47 ==
LOC: ED 16:05 → ERH 21:36 → UNDOADMOB 21:36 → ERH 22:26 → 2RSO 23:20 → ERH 23:20 → OBSVTOIN 05-19 07:46 → INTOOBSV 05-19 07:46 → UNDODISOB 05-19 22:47
PROVIDERS: ADMIT Internal Medicine; ATTEND Internal Medicine
DX: R00.0 Tachycardia, unspecified (principal); J18.9 Pneumonia, unspecified organism; C85.99 Non-Hodgkin lymphoma, unspecified, extranodal and solid organ sites; C85.10 Unspecified B-cell lymphoma, unspecified site; J44.0 Chronic obstructive pulmonary disease with (acute) lower respiratory infection; J32.9 Chronic sinusitis, unspecified; J98.11 Atelectasis; H70.90 Unspecified mastoiditis, unspecified ear; I11.9 Hypertensive heart disease without heart failure; E11.9 Type 2 diabetes mellitus without complications; G40.909 Epilepsy, unspecified, not intractable, without status epilepticus; I25.10 Atherosclerotic heart disease of native coronary artery without angina pectoris; I51.7 Cardiomegaly; K21.9 Gastro-esophageal reflux disease without esophagitis; K44.9 Diaphragmatic hernia without obstruction or gangrene; N28.9 Disorder of kidney and ureter, unspecified; Z79.899 Other long term (current) drug therapy; Z85.841 Personal history of malignant neoplasm of brain; Z90.710 Acquired absence of both cervix and uterus; Z92.21 Personal history of antineoplastic chemotherapy; J45.909 Unspecified asthma, uncomplicated; R53.81 Other malaise; H26.9 Unspecified cataract; R32 Unspecified urinary incontinence; F41.9 Anxiety disorder, unspecified; R40.2412 Glasgow coma scale score 13-15, at arrival to emergency department; E87.6 Hypokalemia; Z92.3 Personal history of irradiation
CPT/HCPCS: 36415; 70450; 71010; 71275; 74177; 80053; 81001; 82550; 82803; 83615; 83735; 84484; 85025; 85610; 85730; 87040; 87086; 93005; 96365; 96367; 96375; 96376; 97116; 97162; 97530; 99285; G0378; G8978; G8979; J2543; J7040; Q9967

== ENCOUNTER 2017-05-31 11:18 | Inpatient (IN) | payer MEDICARE, OTHER ==
[2017-05-31] MEDS ORDERED: Piperacillin/Tazobact 3.375 gm 100 ML IVPB STA (11:45)
--- NOTE | 2017-05-31 11:46 | ED PDOC ---
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 HPI and ROS limited due to acuity of patients condition. PMD: Dr. 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) HX Cerebrovascular Accident: No Hx Dizziness: Yes (SYNCOPE) - HEENT Hx HEENT Disorder: Yes Hx Cataracts: Yes (bilateral) - Renal Hx Pyelonephritis: Yes Hx Renal Failure: No - Endocrine/Metabolic Hx Diabetes Mellitus Type 1: No Hx Diabetes Mellitus Type 2: No Hx Hypothyroidism: No - Hematological/Oncological Hx Cancer: Yes (Brain) - Integumentary Hx Dermatological Disorder: No - Musculoskeletal/Rheumatological Hx Falls: Yes - Gastrointestinal Hx Gastroesophageal Reflux: Yes - Genitourinary/Gynecological Hx Genitourinary Disorders: Yes (HYSTERECTOMY) Hx Incontinence: Yes - Psychiatric Hx Psychophysiologic Disorder: Yes Hx Anxiety: Yes Hx Substance Use: No - Surgical History Hx Hysterectomy: Yes Other/Comment: Port in R chest - Anesthesia Hx Anesthesia: Yes Hx Anesthesia Reactions: No Hx Malignant Hyperthermia: No - Suicidal Assessment Feels Threatened In Home Enviroment: No Family/Social History - Physician Review Nursing Documentation Reviewed: Yes Family/Social History: Unknown Family HX Smoking Status: Never Smoked Hx Alcohol Use: No Hx Substance Use: No Hx Substance Use Treatment: No Allergies/Home Meds Allergies/Adverse Reactions: Allergies No Known Allergies Allergy (Verified 05/17/17 16:20) Home Medications: Home Meds Medication Instructions Recorded Confirmed Lamotrigine [Lamictal] 200 mg PO BID 10/18/16 05/31/17 Famotidine [Pepcid] 20 mg PO DAILY 10/22/16 05/31/17 amLODIPine [Norvasc] 10 mg PO DAILY 12/18/16 05/31/17 Levetiracetam [Keppra] 500 mg PO BID 05/06/17 05/31/17 Lisinopril [Zestril] 20 mg PO DAILY 05/06/17 05/31/17 Potassium Chloride [Klor-Con 10] 20 meq PO DAILY 05/06/17 05/31/17 Metoprolol Succinate [Toprol XL] 100 mg PO DAILY 05/31/17 05/31/17 Tuberculin [Tubersol (5 ml)] 0.1 ml ID DAILY 05/31/17 05/31/17 Review of Systems - Review of Systems Systems not reviewed;Unavailable: Altered Mental Status Constitutional: Fevers Physical Exam Vital Signs Reviewed: Yes Vital Signs Temp Pulse Resp BP Pulse Ox 05/31/17 15:22 98.2 F 90 18 157/85 H 100 05/31/17 13:58 98 H 20 140/90 98 05/31/17 12:00 110 H 20 133/90 98 05/31/17 11:31 101.8 F H 127 H 18 124/78 98 Temperature: Febrile Blood Pressure: Normal Pulse: Tachycardic Respiratory Rate: Normal Appearance: Positive for: Ill-Appearing Pain Distress: None Mental Status: Positive for: Lethargic, other (non verbal) - Systems Exam Head: Present: Atraumatic, Normocephalic Pupils: Present: Other (5mm bilaterally) Conjunctiva: Present: Normal Mouth: Present: Dry Neck: Present: Normal Range of Motion Respiratory/Chest: Present: Good Air Exchange, Decreased Breath Sounds ( bilaterally). No: Respiratory Distress, Accessory Muscle Use Cardiovascular: Present: Normal S1, S2, Tachycardic. No: Murmurs Abdomen: Present: Normal Bowel Sounds. No: Tenderness, Distention, Peritoneal Signs Back: Present: Normal Inspection Upper Extremity: Present: Normal Inspection. No: Cyanosis, Edema Lower Extremity: Present: Other (left lower extremity is externally rotated ). No: Edema Neurological: No: Speech Normal (non verbal) Skin: Present: Warm, Dry, Normal Color. No: Rashes Psychiatric: Present: Lethargic Medical Decision Making ED Course and Treatment: 05/31/17 11:33 Impression: A 66 year old female with a fever. Differential Diagnosis included but are not limited to: Sepsis vs. dehydration vs. electrolyte imbalance vs. brain metsPatie Plan: -- EKG -- Chest X-ray -- Labs -- Urinalysis -- Tylenol, Vancomycin, Zosyn and IV Fluids -- Reassess and disposition Prior Visits: Notes and results from previous visits were reviewed. The patient last presented to the emergency department on 05/17/17 for evaluation of fatigue and generalized weakness. Progress Notes: EKG: Ordered, reviewed, and independently interpreted the EKG. Rate : 124 BPM Rhythm : Sinus tachycardia Interpretation : Normal axis, normal intervals, no ST/T changes. Comparison : Similar to previous EKG on 05/17/17 for comparison. 05/31/17 12:[address] ordered to rule out any intracranial abnormalities. 05/31/17 12:50 Chest X-ray: Creator : Faraz Sparks MD COMPARISON: 05/17/2017 FINDINGS: LUNGS: No active pulmonary disease. PLEURA: No significant pleural effusion identified, no pneumothorax apparent. CARDIOVASCULAR: Normal. OSSEOUS STRUCTURES: No significant abnormalities. VISUALIZED UPPER ABDOMEN: Normal. OTHER FINDINGS: Port-A-Cath IMPRESSION: No active disease. 05/31/17 13:[address]: Creator : Faraz Sparks MD COMPARISON: 05/17/2017 FINDINGS: HEMORRHAGE: No intracranial hemorrhage. BRAIN: No mass effect or edema. Chronic microvascular changes in the periventricular white matter. No acute finding VENTRICLES: Unremarkable. No hydrocephalus. CALVARIUM: Unremarkable. PARANASAL SINUSES: Unremarkable as visualized. No significant inflammatory changes. MASTOID AIR CELLS: Unremarkable as visualized. No inflammatory changes. OTHER FINDINGS: None. IMPRESSION: Chronic microvascular changes. No acute finding 05/31/17 15:35 Patient with fever of 101.8 but hemodynamically stable. Patient with SIRS criteria 3/4 - labs showing leukopenia. Chemistry showing prerenal dehydration. Lactic acid is 1.2; not fulfilling code sepsis criteria. 05/31/17 15:52 Will need to be admitted for sepsis treatment. Discussed with Dr. Butt for admission to his service. Patient given IVF, iv abx, and tylenol and is much more alert and talking. - Lab Interpretations Lab Results: 05/31/17 11:30 05/31/17 11:30 Lab Results 05/31/17 14:07: Urine Color Yellow, Urine Appearance Clear, Urine pH 6.0, Ur Specific [place] >= 1.030, Urine Protein 30 H, Urine Glucose (UA) Negative, Urine Ketones Negative, Urine Blood Trace-intact H, Urine Nitrate Negative, Urine Bilirubin Negative, Urine Urobilinogen 0.2, Ur Leukocyte Esterase Negative , Urine RBC 0 - 2, Urine WBC 0 - 2, Ur Epithelial Cells 0 - 2, Calcium Oxalate Crystal Trace, Urine Bacteria Few 05/31/17 11:30: Sodium 153 H, Chloride 115 H, Potassium 5.0, Carbon Dioxide 28, Anion Gap 15, BUN 63 H, Creatinine 2.0 H, Est GFR ( Amer) 30, Est GFR ( Non-Af Amer) 25, Random Glucose 128 H, Calcium 10.2, Phosphorus 4.6 H, Magnesium 2.5 H, Total Bilirubin 1.0, Direct Bilirubin 0.6 H, AST 67 H, ALT 49, Alkaline Phosphatase 81, Lactate Dehydrogenase 1086 H, Total Creatine Kinase 1104 H, CK-MB (CK-2) 5.0 H, CK-MB (CK-2) % 0.5 L, Troponin I 0.02, NT-Pro-B Natriuret Pep 306, Total Protein 6.4, Albumin 3.7, Globulin 2.8, Albumin/ Globulin Ratio 1.3, Lipase 59 05/31/17 11:30: pO2 171 H, VBG pH 7.41, VBG pCO2 44.0, VBG HCO3 27.9, VBG Total CO2 29.3 H, VBG O2 Sat (Calc) 100.1 H, VBG Base Excess 2.7 H, VBG Potassium 5.0 , Sodium 150.0 H, Chloride 120.0 H, Glucose 131 H, Lactate 1.2, FiO2 21.0, Venous Blood Potassium 5.0 05/31/17 11:30: PT 10.6, INR 0.98, APTT 24.1 05/31/17 11:30: WBC 2.5 L* D, RBC 4.26, Hgb 12.7, Hct 41.0, MCV 96.2, MCH 29.8, MCHC 31.0, RDW 14.3, Plt Count 127, MPV 9.5, Gran % 66.5, Lymph % (Auto) 23.1, [place] % (Auto) 7.6 H, Eos % (Auto) 2.0, Baso % (Auto) 0.8, Gran # 1.67, Lymph # 0.6 L, [place] # 0.2, Eos # 0.1, Baso # 0.02, ESR 31 H I have reviewed the lab results: Yes - RAD Interpretation Radiology Orders: 05/31/17 11:42 CHEST PORTABLE [RAD] Stat 05/31/17 12:39 Brain [HEAD W/O CONTRAST] [CT] Stat - Medication Orders Current Medication Orders: Discontinued Medications Acetaminophen (Tylenol 650 Mg Supp) 975 mg RC STAT STA Stop: 05/31/17 11:41 Last Admin: 05/31/17 13:25 Dose: 975 mg Re-Assess: MAR Pain/Vitals Document 05/31/17 14:25 BUD (Rec: 05/31/17 15:19 BUD [id number]) Pain Reassessment Is This A Pain ReAssessment? No Sleep Is patient sleeping during reassessment? Yes Sodium Chloride 1,910 ml/ IV (SUPPLIES) 1,910 mls @ 3,810 mls/hr IV ONCE ONE PRN Reason: 60 ML/KG/HR Stop: 05/31/17 11:43 Last Admin: 05/31/17 12:05 Dose: 3,810 mls/hr Vancomycin HCl 1 gm/ Sodium (Chloride) 250 mls @ 133.333 mls/hr IV STAT STA PRN Reason: Protocol Stop: 05/31/17 13:37 Last Admin: 05/31/17 12:04 Dose: 133.333 mls/hr Piperacillin Sod/Tazobactam Sod (Zosyn 3.375 In Ns 100ml) 100 mls @ 200 mls/hr IVPB STAT STA PRN Reason: Protocol Stop: 05/31/17 12:14 Last Admin: 05/31/17 13:26 Dose: 200 mls/hr - Scribe Statement The provider has reviewed the documentation as recorded by the Missaelibmaria Pike Provider Scribe Attestation: All medical record entries made by the Scribe were at my direction and personally dictated by me. I have reviewed the chart and agree that the record accurately reflects my personal performance of the history, physical exam, medical decision making, and the department course for this patient. I have also personally directed, reviewed, and agree with the discharge instructions and disposition. Disposition/Present on Arrival - Present on Arrival Any Indicators Present on Arrival: No History of DVT/PE: No History of Uncontrolled Diabetes: No Urinary Catheter: No History Surgical Site Infection Following: None - Disposition Have Diagnosis and Disposition been Completed?: Yes Diagnosis: Sepsis, Altered mental status Disposition: HOSPITALIZED Disposition Time: 13:10 Patient Plan: Admission, Telemetry Condition: FAIR
[2017-05-31 12:13] LABS: BASO # 0.02 K/mm3 (0.0-2.0); BASO % 0.8 % (0.0-3.0); EOS # 0.1 (0.0-0.7); GRAN # 1.67 (1.4-6.5); GRAN % 66.5 % (50.0-68.0); HEMOGLOBIN 12.7 gm/dL (12.0-16.0); LYMPH # 0.6 (1.2-3.4); LYMPH % 23.1 % (22.0-35.0); MEAN CELL VOLUME 96.2 fL (80.0-105.0); MEAN CORPUSCULAR HEMOGLOBIN 29.8 pg (25.0-35.0); MEAN PLATELET VOLUME 9.5 fl (7.0-11.0); MONO # 0.2 (0.1-0.6); MONO % 7.6 % (1.0-6.0); PLATELET COUNT 127 10^3/uL (120.0-450.0); RBC 4.26 10^6/uL (3.5-6.1); RED CELL DISTRIBUTION WIDTH 14.3 % (11.5-14.5)
[2017-05-31 12:16] LABS: WHITE BLOOD COUNT 2.5 10^3/ul (4.5-11.0)
[2017-05-31 12:20] LABS: VENOUS BLOOD GAS BASE EXCESS 2.7 mmol/L (0.0-2.0); VENOUS BLOOD GAS PO2 171 mm/Hg (30-55); VENOUS BLOOD PH 7.41 (7.32-7.43)
[2017-05-31] MEDS ORDERED: levETIRAcetam 1,000 MG in Sodium Chloride 0.9% 100 ML IV STA (12:20)
[2017-05-31 12:31] LABS: ALB/GLOB RATIO 1.3 (1.1-1.8); ALBUMIN 3.7 g/dL (3.0-4.8); BILIRUBIN,DIRECT 0.6 mg/dL (0.0-0.4); CALCIUM 10.2 mg/dL (8.4-10.5); MAGNESIUM 2.5 mg/dL (1.7-2.2)
[2017-05-31 12:43] LABS: TROPONIN I 0.02 ng/mL
[2017-05-31 12:46] LABS: CK MB% 0.5 % (2.5-3.0)
--- NOTE | 2017-05-31 12:49 | RAD ---
HISTORY: Sepsis Patient COMPARISON: 05/17/2017 FINDINGS: LUNGS: No active pulmonary disease. PLEURA: No significant pleural effusion identified, no pneumothorax apparent. CARDIOVASCULAR: Normal. OSSEOUS STRUCTURES: No significant abnormalities. VISUALIZED UPPER ABDOMEN: Normal. OTHER FINDINGS: Port-A-Cath IMPRESSION: No active disease.
[2017-05-31 12:53] LABS: INR 0.98 (0.93-1.08); PARTIAL THROMBOPLASTIN TIME 24.1 Seconds (23.7-30.8); PROTHROMBIN TIME 10.6 Seconds (9.9-11.8)
--- NOTE | 2017-05-31 13:27 | CT ---
PROCEDURE: CT HEAD WITHOUT CONTRAST. HISTORY: alt ms COMPARISON: 05/17/2017 TECHNIQUE: Axial computed tomography images were obtained through the head/brain without intravenous contrast. Radiation dose: Total exam DLP = 1539 mGy-cm. This CT exam was performed using one or more of the following dose reduction techniques: Automated exposure control, adjustment of the mA and/or kV according to patient size, and/or use of iterative reconstruction technique. FINDINGS: HEMORRHAGE: No intracranial hemorrhage. BRAIN: No mass effect or edema. Chronic microvascular changes in the periventricular white matter. No acute finding VENTRICLES: Unremarkable. No hydrocephalus. CALVARIUM: Unremarkable. PARANASAL SINUSES: Unremarkable as visualized. No significant inflammatory changes. MASTOID AIR CELLS: Unremarkable as visualized. No inflammatory changes. OTHER FINDINGS: None. IMPRESSION: Chronic microvascular changes. No acute finding
[2017-05-31 14:15] LABS: URINE BILIRUBIN NEGATIVE (NEGATIVE); URINE BLOOD TRACE-INTACT (NEGATIVE); URINE GLUCOSE (UA) NEGATIVE (NEGATIVE); URINE LEUKOCYTE ESTERASE NEGATIVE Leu/uL (NEGATIVE); URINE NITRATE NEGATIVE (NEGATIVE); URINE PROTEIN 30 mg/dL (<30 mg/dL); URINE UROBILINOGEN 0.2 E.U./dL (<1 E.U./dL)
[2017-05-31 14:18] LABS: URINE APPEARANCE CLEAR (CLEAR); URINE COLOR YELLOW (YELLOW)
[2017-05-31 14:30] LABS: URINE BACTERIA FEW (NEG); URINE EPITHELIAL CELLS 0 - 2 /hpf (0-5); URINE RBC 0 - 2 /hpf (0-2); URINE WBC 0 - 2 /hpf (0-6)
[2017-05-31 14:31] LABS: URINE CALCIUM OXALATE CRYSTALS TRACE /hpf
[2017-05-31 16:23] LABS: FREE T4 1.04 ng/dL (0.78-2.19)
[2017-05-31] MEDS ORDERED: Sodium Chloride 0.9% 1,000 ML IV STA (16:25)
--- NOTE | 2017-05-31 16:34 | CARD ---
APPROVED REPORT EKG Measurement Heart [id number] <Conclusion> Sinus tachycardia Possible Left atrial enlargement Borderline ECG
[2017-05-31] MEDS ORDERED: Pneumococcal 23-Valent Vaccine IM ONE (20:44)
[2017-05-31 20:45] VITALS: BMI 22.4
[2017-05-31] MEDS: Sodium Chloride 0.45% 1,000 ML IV SCH (21:49)
--- NOTE | 2017-05-31 22:41 | CP.PCM.CON ---
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 ( see old records) Review of Systems - Review of Systems Systems not reviewed;Unavailable: Dementia - Constitutional Constitutional: As Per HPI - EENT Eyes: As Per HPI Ears: As Per HPI - Cardiovascular Cardiovascular: As Per HPI - Respiratory Respiratory: As Per HPI - Gastrointestinal Gastrointestinal: As Per HPI - Musculoskeletal Musculoskeletal: As Per HPI - Integumentary Integumentary: As Per HPI - Neurological Neurological: As Per HPI, Numbness, Weakness Past Patient History - Infectious Disease Hx of Infectious Diseases: None - Past Medical History & Family History Past Medical History?: Yes - Past Social History Smoking Status: Never Smoked - CARDIAC Hx Cardiac Disorders: Yes (CAD) Hx Hypertension: Yes Other/Comment: h/o CAD - PULMONARY Hx Chronic Obstructive Pulmonary Disease (COPD): Yes - NEUROLOGICAL Hx Neurological Disorder: Yes (BRAIN AND NECK MASS-BRAIN CA WITH RADIATION) HX Cerebrovascular Accident: No Hx Dizziness: Yes (SYNCOPE) - HEENT Hx HEENT Problems: Yes Hx Cataracts: Yes (bilateral) - RENAL Hx Pyelonephritis: Yes Hx Renal Failure: No - ENDOCRINE/METABOLIC Hx Diabetes Mellitus Type 1: No Hx Diabetes Mellitus Type 2: No Hx Hypothyroidism: No - HEMATOLOGICAL/ONCOLOGICAL Hx Cancer: Yes (stage IV Lymhoma w brain involvement) - INTEGUMENTARY Hx Dermatological Problems: No - MUSCULOSKELETAL/RHEUMATOLOGICAL Hx Falls: Yes - GASTROINTESTINAL Hx Gastroesophageal Reflux: Yes - GENITOURINARY/GYNECOLOGICAL Hx Genitourinary Disorders: Yes (HYSTERECTOMY) Hx Incontinence: Yes - PSYCHIATRIC Hx Psychophysiologic Disorder: Yes Hx Anxiety: Yes Hx Substance Use: No - SURGICAL HISTORY Hx Hysterectomy: Yes Other/Comment: Port in R chest - ANESTHESIA Hx Anesthesia: Yes Hx Anesthesia Reactions: No Hx Malignant Hyperthermia: No Meds Allergies/Adverse Reactions: Allergies Allergy/AdvReac Type Severity Reaction Status Date / Time No Known Allergies Allergy Verified 05/31/17 17:59 - Medications Medications: Current Medications Docusate Sodium (Colace) 100 mg PO TID [facility] Famotidine (Pepcid) 20 mg PO DAILY [facility] Sodium Chloride (Sodium Chloride 0.45%) 1,000 mls @ 100 mls/hr IV .Q10H [facility] Lamotrigine (Lamictal) 200 mg PO BID [facility] Levetiracetam (Keppra) 500 mg PO BID [facility] Metoprolol Succinate (Toprol Xl) 100 mg PO DAILY [facility] Potassium Chloride (K-Dur 20 Meq Er Tab) 20 meq PO BRK [facility] Prednisone (Prednisone Tab) 5 mg PO DAILY [facility] Results - Vital Signs Recent Vital Signs: Last Vital Signs Temp 98.2 F 05/31/17 20:18 Pulse 91 H 05/31/17 20:18 Resp 20 05/31/17 20:18 BP 124/72 05/31/17 20:18 Pulse Ox 100 05/31/17 16:22 - Labs Result Diagrams: 05/31/17 11:30 05/31/17 11:30 Assessment & Plan (1) Hypernatremia Status: Acute (2) Diffuse histiocytic lymphoma, stage 4A Status: Acute (3) Altered mental status Status: Acute (4) Sepsis Status: Acute (5) Seizure disorder Status: Acute (6) Leucopenia Status: Acute (7) Anxiety associated with depression Status: Acute - Assessment and Plan (Free Text) Plan: Rx as ind w IV ABs as per consultants, consider IVIGG, / Rituxan with eventual rx w Ibruvica as per Dr Bynum once pt improves from present FUO?/sepsis, give 1/2NS (dc NS) monitor cliincally, chk labs prog guarded
[2017-06-01] MEDS: Piperacillin/Tazobact 3.375 gm 100 ML IVPB SCH ×5 (00:15→23:48)
[2017-06-01 06:52] LABS: BASO # 0.07 K/mm3 (0.0-2.0); BASO % 3.5 % (0.0-3.0); GRAN # 1.27 (1.4-6.5); GRAN % 62.8 % (50.0-68.0); HEMOGLOBIN 10.5 gm/dL (12.0-16.0); LYMPH # 0.5 (1.2-3.4); LYMPH % 23.3 % (22.0-35.0); MEAN CELL VOLUME 97.5 fL (80.0-105.0); MEAN CORPUSCULAR HEMOGLOBIN 29.5 pg (25.0-35.0); MEAN CORPUSCULAR HGB CONC 30.3 g/dl (31.0-37.0); MEAN PLATELET VOLUME 9.8 fl (7.0-11.0); MONO # 0.2 (0.1-0.6); MONO % 8.4 % (1.0-6.0); PLATELET COUNT 91 10^3/uL (120.0-450.0); RBC 3.56 10^6/uL (3.5-6.1); RED CELL DISTRIBUTION WIDTH 14.2 % (11.5-14.5)
--- NOTE | 2017-06-01 06:59 | CP.PCM.PN ---
<WagenrHarriet - Last Filed: 06/01/17 14:06> Subjective - Date & Time of Evaluation Date of Evaluation: 06/01/17 Time of Evaluation: 06:59 - Subjective Subjective: PGY-[address] Bynum Pt from [facility] had fever of 102.5. She has AMS, response to voice , lethargic. Noted multiple grayish bruse to R leg and L knee. Becerra with dark rodolfo urine, baseline B&B incontinent. On seizure and aspiration precaution. ensure 3 a day. Failed initial swallow eval Objective - Vital Signs/Intake and Output Vital Signs (last 24 hours): Temp Pulse Resp BP Pulse Ox 98.2 F 91 H 20 124/72 100 05/31/17 20:18 05/31/17 20:18 05/31/17 20:18 05/31/17 20:18 05/31/17 16:22 Intake and Output: 05/31/17 06/01/17 18:59 06:59 Output Total 425 Balance -425 - Medications Medications: Current Medications Docusate Sodium (Colace) 100 mg PO TID [facility] Famotidine (Pepcid) 20 mg PO DAILY [facility] Sodium Chloride (Sodium Chloride 0.45%) 1,000 mls @ 100 mls/hr IV .Q10H [facility] Last Admin: 05/31/17 21:49 Dose: 100 mls/hr Piperacillin Sod/Tazobactam Sod (Zosyn 3.375 In Ns 100ml) 100 mls @ 200 mls/hr IVPB Q6 [facility] PRN Reason: Protocol Stop: 06/08/17 00:01 Last Admin: 06/01/17 06:40 Dose: 200 mls/hr Lamotrigine (Lamictal) 200 mg PO BID [facility] Levetiracetam (Keppra) 500 mg PO BID [facility] Metoprolol Succinate (Toprol Xl) 100 mg PO DAILY [facility] Potassium Chloride (K-Dur 20 Meq Er Tab) 20 meq PO BRK [facility] Prednisone (Prednisone Tab) 5 mg PO DAILY [facility] - Labs Labs: PT 10.6 Seconds (9.9-11.8) 05/31/17 11:30 INR 0.98 (0.93-1.08) 05/31/17 11:30 APTT 24.1 Seconds (23.7-30.8) 05/31/17 11:30 - Constitutional Appears: Cachectic, Chronically Ill - Head Exam Head Exam: ATRAUMATIC, NORMAL INSPECTION, NORMOCEPHALIC - Eye Exam Eye Exam: EOMI, Normal appearance, PERRL. absent: Scleral icterus Pupil Exam: NORMAL ACCOMODATION - ENT Exam ENT Exam: Mucous Membranes Moist - Respiratory Exam Respiratory Exam: NORMAL BREATHING PATTERN. absent: Rales, Rhonchi, Wheezes - Cardiovascular Exam Cardiovascular Exam: REGULAR RHYTHM, +S1, +S2 - GI/Abdominal Exam GI & Abdominal Exam: Soft. absent: Guarding, Rigid, Tenderness - Extremities Exam Extremities Exam: Normal Capillary Refill. absent: Calf Tenderness, Pedal Edema - Neurological Exam Additional comments: arousable to voice and tactile lethargic - Skin Skin Exam: Dry, Warm Assessment and Plan - Assessment and Plan (Free Text) Plan: 66 F admitted for AMS change, sepsis, hypernatremia. 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 Bynum <Britni Bynum P - Last Filed: 06/04/17 00:53> Objective - Vital Signs/Intake and Output Vital Signs (last 24 hours): Temp Pulse Resp BP Pulse Ox 98.9 F 75 16 140/80 94 L 06/03/17 18:00 06/03/17 19:13 06/03/17 18:00 06/03/17 18:45 06/03/17 06:00 Intake and Output: 06/03/17 06/04/17 18:59 06:59 Intake Total 480 Output Total 600 Balance -120 - Medications Medications: Current Medications Acetaminophen (Tylenol 325mg Tab) 650 mg PO Q6H PRN PRN Reason: Pain, moderate (4-7) Last Admin: 06/01/17 14:40 Dose: 650 mg Docusate Sodium (Colace) 100 mg PO TID [facility] Last Admin: 06/03/17 18:13 Dose: 100 mg Enoxaparin Sodium (Lovenox) 30 mg SC DAILY [facility] PRN Reason: Protocol Last Admin: 06/03/17 18:12 Dose: 30 mg Famotidine (Pepcid) 20 mg PO DAILY [facility] Last Admin: 06/03/17 10:41 Dose: 20 mg Potassium Chloride 20 meq/ (Dextrose/Sodium Chloride) 1,010 mls @ 80 mls/hr IV .[id number] [facility] Last Admin: 06/03/17 06:21 Dose: 80 mls/hr Lamotrigine (Lamictal) 200 mg PO BID [facility] Last Admin: 06/03/17 18:12 Dose: 200 mg Levetiracetam (Keppra) 500 mg PO BID [facility] Last Admin: 06/03/17 18:13 Dose: 500 mg Metoprolol Succinate (Toprol Xl) 100 mg PO DAILY [facility] Last Admin: 06/03/17 10:41 Dose: 100 mg Oxycodone/Acetaminophen (Percocet 5/325 Mg Tab) 1 tab PO Q4H PRN PRN Reason: Pain, moderate (4-7) Stop: 06/05/17 11:39 Last Admin: 06/02/17 17:32 Dose: 1 tab Potassium Chloride (K-Dur 20 Meq Er Tab) 20 meq PO BRK [facility] Last Admin: 06/03/17 10:41 Dose: 20 meq Prednisone (Prednisone Tab) 5 mg PO DAILY [facility] Last Admin: 06/03/17 10:41 Dose: 5 mg - Labs Labs: 06/03/17 07:04 06/03/17 07:04 PT 10.6 Seconds (9.9-11.8) 05/31/17 11:30 INR 0.98 (0.93-1.08) 05/31/17 11:30 APTT 24.1 Seconds (23.7-30.8) 05/31/17 11:30 Attending/Attestation - Attestation I have personally seen and examined this patient.: Yes I have fully participated in the care of the patient.: Yes I have reviewed all pertinent clinical information, including history, physical exam and plan: Yes
[2017-06-01 07:08] LABS: ALB/GLOB RATIO 1.2 (1.1-1.8); ALBUMIN 2.9 g/dL (3.0-4.8); CALCIUM 8.9 mg/dL (8.4-10.5)
[2017-06-01] MEDS: Potassium Chloride 20 mEq ER Tab PO SCH (08:11)
[2017-06-01 09:07] LABS: CK-MB 2.6 ng/mL (0.0-3.6)
[2017-06-01] MEDS ORDERED: Dextrose 5%/0.45% NS 1,000 ML IV SCH (09:15)
[2017-06-01] MEDS ORDERED: LAMOTRIGINE 200 MG PO SCH (10:00)
[2017-06-01] MEDS ORDERED: Potassium Chloride 10 mEq ER Tab PO SCH (10:00)
[2017-06-01] MEDS: Metoprolol Succinate 100 mg XL Tab PO SCH (12:14)
[2017-06-01] MEDS: Dextrose 5%/0.45% NS 1,000 ML IV SCH ×2 (12:16→23:44)
--- NOTE | 2017-06-01 12:48 | CT ---
PROCEDURE: CT Chest without contrast HISTORY: fever COMPARISON: None. TECHNIQUE: Contiguous axial images were obtained through the chest without intravenous contrast enhancement. Sagittal and coronal reconstructions were performed. Radiation dose (DLP): 293 mGy-cm. This CT exam was performed using one or more of the following dose reduction techniques: Automated exposure control, adjustment of the mA and/or kV according to patient size, and/or use of iterative reconstruction technique. FINDINGS: LUNGS: Clear lungs. Visualized airway clear. No evidence of pneumonia MEDIASTINUM: Unremarkable thoracic aorta. No aneurysm. Normal sized heart. Main pulmonary artery unremarkable. No vascular congestion. No lymphadenopathy. PLEURA: No pleural fluid. No pneumothorax. BONES: No fracture. No destructive lesion. UPPER ABDOMEN: Grossly unremarkable. OTHER FINDINGS: None. IMPRESSION: Unremarkable non-contrast enhanced CT of the chest.
[2017-06-01] MEDS: Sodium Chloride 0.45% 1,000 ML IV SCH (13:07)
[2017-06-02] MEDS ORDERED: Oxycodone/Acetaminophen 5/325 mg Tab PO STA (05:30)
--- NOTE | 2017-06-02 05:31 | CP.PCM.PN ---
Subjective - Date & Time of Evaluation Date of Evaluation: 06/02/17 Time of Evaluation: 05:31 - Subjective Subjective: Patient was seen at bedside because she complained of legs pain. Has no other complaints now. Denies fever, chills, swelling, chest pain, sob. Medical record was reviewed. ROS:Negative except as mentioned above. This 66 year old woman was admitted with mental status change , fever,leukopenia, renal insufficiency. She has PMH of lymphoma, dementia, COPD, cataract surgery,seizure, anxiety. Objective - Vital Signs/Intake and Output Vital Signs (last 24 hours): Temp Pulse Resp BP Pulse Ox 98.1 F 81 18 137/82 100 06/02/17 00:01 06/02/17 00:01 06/02/17 00:01 06/02/17 00:01 05/31/17 16:22 Intake and Output: 06/01/17 06/02/17 18:59 06:59 Intake Total 1020 Output Total 1401 Balance -381 - Medications Medications: Current Medications Acetaminophen (Tylenol 325mg Tab) 650 mg PO Q6H PRN PRN Reason: Pain, moderate (4-7) Last Admin: 06/01/17 14:40 Dose: 650 mg Docusate Sodium (Colace) 100 mg PO TID [facility] Last Admin: 06/01/17 17:58 Dose: 100 mg Famotidine (Pepcid) 20 mg PO DAILY [facility] Last Admin: 06/01/17 12:15 Dose: 20 mg Piperacillin Sod/Tazobactam Sod (Zosyn 3.375 In Ns 100ml) 100 mls @ 200 mls/hr IVPB Q6 [facility]IND PRN Reason: Protocol Stop: 06/08/17 00:01 Last Admin: 06/01/17 23:48 Dose: 200 mls/hr Dextrose/Sodium Chloride (Dextrose 5%/0.45% Ns 1000 Ml) 1,000 mls @ 80 mls/hr IV .[id number] [facility] Last Admin: 06/01/17 23:44 Dose: 80 mls/hr Lamotrigine (Lamictal) 200 mg PO BID [facility] Last Admin: 06/01/17 17:58 Dose: 200 mg Levetiracetam (Keppra) 500 mg PO BID [facility] Last Admin: 06/01/17 17:58 Dose: 500 mg Metoprolol Succinate (Toprol Xl) 100 mg PO DAILY [facility] Last Admin: 06/01/17 12:14 Dose: 100 mg Potassium Chloride (K-Dur 20 Meq Er Tab) 20 meq PO BRK [facility] Last Admin: 06/01/17 08:11 Dose: Not Given Prednisone (Prednisone Tab) 5 mg PO DAILY [facility] Last Admin: 06/01/17 12:14 Dose: 5 mg - Labs Labs: 06/01/17 06:00 06/01/17 18:00 PT 10.6 Seconds (9.9-11.8) 05/31/17 11:30 INR 0.98 (0.93-1.08) 05/31/17 11:30 APTT 24.1 Seconds (23.7-30.8) 05/31/17 11:30 Microbiology Studies 05/31/17 14:07 Urine Culture - Final Urine,Catheterized No Growth (<1,000 CFU/ML) 05/31/17 11:30 Blood Culture - Preliminary Blood NO GROWTH AFTER 24 HOURS 05/31/17 11:30 Blood Culture - Preliminary Blood NO GROWTH AFTER 24 HOURS Lab Studies 06/01/17 06/01/17 06/01/17 Range/Units 18:00 18:00 06:00 WBC (4.5-11.0) 10^3/ul RBC (3.5-6.1) 10^6/uL Hgb (12.0-16.0) gm/dL Hct (36.0-48.0) % MCV (80.0-105.0) fL MCH (25.0-35.0) pg MCHC (31.0-37.0) g/dl RDW (11.5-14.5) % Plt Count (120.0-450.0) 10^3/uL MPV (7.0-11.0) fl Gran % (50.0-68.0) % Lymph % (Auto) (22.0-35.0) % [place] % (Auto) (1.0-6.0) % Eos % (Auto) (1.5-5.0) % Baso % (Auto) (0.0-3.0) % Gran # (1.4-6.5) Lymph # (1.2-3.4) [place] # (0.1-0.6) Eos # (0.0-0.7) Baso # (0.0-2.0) K/mm3 Sodium 151 H (132-148) mmol/L Potassium 3.9 (3.6-5.0) mmol/L Chloride 117 H (95-110) mmol/L Carbon Dioxide 26 (21-33) mmol/L Anion Gap 12 (10-20) BUN 48 H (7-21) mg/dL Creatinine 1.2 (0.5-1.4) mg/dL Est GFR ( Amer) 54 Est GFR (Non-Af Amer) 45 Random Glucose 125 H (70-110) mg/dL Calcium 9.0 (8.4-10.5) mg/dL Total Bilirubin (0.2-1.3) mg/dL AST (15-39) U/L ALT (7-56) U/L Alkaline Phosphatase (38-133) U/L Total Creatine Kinase 819 H (35-230) U/L CK-MB (CK-2) 2.6 (0.0-3.6) ng/mL CK-MB (CK-2) % 0.3 L (2.5-3.0) % Total Protein (5.8-8.3) g/dL Albumin (3.0-4.8) g/dL Globulin gm/dL Albumin/Globulin Ratio (1.1-1.8) Procalcitonin 1.03 H (0.19-0.49) NG/ML 06/01/17 06/01/17 Range/Units 06:00 06:00 WBC 2.0 L* (4.5-11.0) 10^3/ul RBC 3.56 (3.5-6.1) 10^6/uL Hgb 10.5 L (12.0-16.0) gm/dL Hct 34.7 L (36.0-48.0) % MCV 97.5 (80.0-105.0) fL MCH 29.5 (25.0-35.0) pg MCHC 30.3 L (31.0-37.0) g/dl RDW 14.2 (11.5-14.5) % Plt Count 91 L (120.0-450.0) 10^3/uL MPV 9.8 (7.0-11.0) fl Gran % 62.8 (50.0-68.0) % Lymph % (Auto) 23.3 (22.0-35.0) % [place] % (Auto) 8.4 H (1.0-6.0) % Eos % (Auto) 2.0 (1.5-5.0) % Baso % (Auto) 3.5 H (0.0-3.0) % Gran # 1.27 L (1.4-6.5) Lymph # 0.5 L (1.2-3.4) [place] # 0.2 (0.1-0.6) Eos # 0.0 (0.0-0.7) Baso # 0.07 (0.0-2.0) K/mm3 Sodium 154 H (132-148) mmol/L Potassium 4.0 (3.6-5.0) mmol/L Chloride 120 H (95-110) mmol/L Carbon Dioxide 25 (21-33) mmol/L Anion Gap 13 (10-20) BUN 50 H (7-21) mg/dL Creatinine 1.2 (0.5-1.4) mg/dL Est GFR ( Amer) 54 Est GFR (Non-Af Amer) 45 Random Glucose 102 (70-110) mg/dL Calcium 8.9 (8.4-10.5) mg/dL Total Bilirubin 0.9 (0.2-1.3) mg/dL AST 56 H (15-39) U/L ALT 51 (7-56) U/L Alkaline Phosphatase 76 (38-133) U/L Total Creatine Kinase (35-230) U/L CK-MB (CK-2) (0.0-3.6) ng/mL CK-MB (CK-2) % (2.5-3.0) % Total Protein 5.2 L (5.8-8.3) g/dL Albumin 2.9 L (3.0-4.8) g/dL Globulin 2.4 gm/dL Albumin/Globulin Ratio 1.2 (1.1-1.8) Procalcitonin (0.19-0.49) NG/ML - Constitutional Appears: Well, No Acute Distress - Head Exam Head Exam: ATRAUMATIC, NORMAL INSPECTION, NORMOCEPHALIC - Eye Exam Eye Exam: Normal appearance - ENT Exam ENT Exam: Normal External Ear Exam - Neck Exam Neck Exam: Normal Inspection - Respiratory Exam Respiratory Exam: NORMAL BREATHING PATTERN - Cardiovascular Exam Cardiovascular Exam: absent: JVD - GI/Abdominal Exam GI & Abdominal Exam: absent: Distended - Rectal Exam Rectal Exam: Deferred - Exam Additional comments: Deferred. - Extremities Exam Extremities Exam: Normal Inspection - Back Exam Back Exam: NORMAL INSPECTION - Neurological Exam Neurological Exam: Alert, Awake - Psychiatric Exam Psychiatric exam: Depressed - Skin Skin Exam: Normal Color Assessment and Plan - Assessment and Plan (Free Text) Assessment: legs pain. Lymphoma. AMS. Seizure. Anxiety. Dementia. Plan: percocet I PO now. Continue present management.
[2017-06-02] MEDS: Piperacillin/Tazobact 3.375 gm 100 ML IVPB SCH ×3 (05:35→17:26)
[2017-06-02 06:26] LABS: HEMOGLOBIN 10.3 gm/dL (12.0-16.0); MEAN CELL VOLUME 95.1 fL (80.0-105.0); MEAN CORPUSCULAR HEMOGLOBIN 29.6 pg (25.0-35.0); MEAN CORPUSCULAR HGB CONC 31.1 g/dl (31.0-37.0); MEAN PLATELET VOLUME 10.2 fl (7.0-11.0); PLATELET COUNT 73 10^3/uL (120.0-450.0); RBC 3.48 10^6/uL (3.5-6.1); RED CELL DISTRIBUTION WIDTH 14.1 % (11.5-14.5)
[2017-06-02 06:37] LABS: ALB/GLOB RATIO 1.2 (1.1-1.8); ALBUMIN 2.8 g/dL (3.0-4.8); ALT/SGPT 73 U/L (7-56); AST/SGOT 97 U/L (15-39); BLOOD UREA NITROGEN 35 mg/dL (7-21); CALCIUM 8.8 mg/dL (8.4-10.5); GFR AFRICAN-AMERICAN > 60; GFR NON-AFRICAN AMERICAN 55
[2017-06-02 07:31] LABS: WHITE BLOOD COUNT 2.5 10^3/ul (4.5-11.0)
[2017-06-02] MEDS: Potassium Chloride 20 mEq ER Tab PO SCH (08:27)
[2017-06-02 08:58] LABS: CK-MB 1.8 ng/mL (0.0-3.6)
[2017-06-02 09:06] LABS: ATYPICAL LYMPHOCYTE 9 % (0.0-0.0); BAND 3 % (0-2); LYMPHOCYTE 50 % (22.0-35.0); MONOCYTE 2 % (1.0-6.0); NEUTROPHIL 36 % (50.0-70.0)
[2017-06-02] MEDS: Metoprolol Succinate 100 mg XL Tab PO SCH (10:18)
--- NOTE | 2017-06-02 10:59 | CON ---
DATE: 06/01/2017HISTORY OF PRESENTING ILLNESS: A 66-year-old lady, previously unknown to me, was sent to the emergency from [facility] because of fever, altered mental status, lethargy. History is mostly obtained from the chart. Patient is unable to provide any history. She was found to have a BUN of 63, creatinine of 2.0, sodium of 154, hence consultation is requested. PAST MEDICAL/SURGICAL HISTORY: Stage IV small cell lymphocytic lymphoma, hypertension, seizure disorder, asthma, and metastatic disease to the brain. FAMILY HISTORY: Noncontributory. SOCIAL HISTORY: No smoking, no alcohol use, no IV drug abuse. ALLERGIES: NO KNOWN DRUG ALLERGIES. MEDICATIONS: Colace, Pepcid, Keppra, Lamictal, Toprol-XL 100 mg daily, [place]-Dur 20 mEq, prednisone 5 daily. REVIEW OF SYSTEMS: Unavailable, as the patient is unable to cooperate. PHYSICAL EXAMINATION: GENERAL: Thinly built cachectic elderly lady, lying in bed. VITAL SIGNS: Blood pressure is 124/72, heart rate is 91, respiratory rate is 20, temperature is 98.2. HEENT: Normocephalic, atraumatic, Positive pallor. NECK: Supple, no JVD. LUNGS: Bilaterally good air entry, no rales. CARDIAC: S1, S2, regular rate and rhythm, no murmur, no rub. ABDOMEN: Soft, nondistended, nontender, bowel sounds present. EXTREMITIES: No lower extremity edema. INTAKE AND OUTPUT: Not charted. LABORATORY DATA: Sodium 154, potassium 4.0, chloride 120, CO2 of 25, BUN 50, creatinine 1.2, glucose 102, calcium 8.9, troponin 0.2, albumin 2.9. WBC 2.0, hemoglobin 10.5, hematocrit 34.7, platelets 91. Urinalysis: Yellow, clear, pH 6.0, specific gravity greater than 1.030, protein 30, blood trace and intact. ASSESSMENT: 1. Acute kidney injury, prerenal azotemia. 2. Hypernatremia, dehydration. 3. Hemoconcentration. 4. Anemia. 5. Pancytopenia. 6. History of lymphoma with mets. 7. Seizure disorder. 8. Hypertension. PLAN: 1. Panculture. 2. Empiric antibiotics as per infectious disease recommendations. 3. Hypotonic IV fluids, change IV fluids to D5 half-normal saline. 4. Monitor urine output. 5. Monitor electrolytes closely. Thank you for the courtesy of this consultation. We will follow this patient closely with you. Alexa Camarillo MD
--- NOTE | 2017-06-02 11:13 | CP.PCM.PN ---
Subjective - Date & Time of Evaluation Date of Evaluation: 06/02/17 Time of Evaluation: 09:50 - Subjective Subjective: Patient is more awake today, complaining of occasional pain in the legs. No fevers overnight. Objective - Vital Signs/Intake and Output Vital Signs (last 24 hours): Temp Pulse Resp BP Pulse Ox 98.3 F 81 19 163/96 H 98 06/02/17 06:00 06/02/17 06:00 06/02/17 06:00 06/02/17 06:00 06/02/17 06:00 Intake and Output: 06/02/17 06/02/17 06:59 18:59 Intake Total 960 Output Total 500 Balance 460 - Medications Medications: Current Medications Acetaminophen (Tylenol 325mg Tab) 650 mg PO Q6H PRN PRN Reason: Pain, moderate (4-7) Last Admin: 06/01/17 14:40 Dose: 650 mg Docusate Sodium (Colace) 100 mg PO TID [facility] Last Admin: 06/01/17 17:58 Dose: 100 mg Famotidine (Pepcid) 20 mg PO DAILY [facility] Last Admin: 06/01/17 12:15 Dose: 20 mg Piperacillin Sod/Tazobactam Sod (Zosyn 3.375 In Ns 100ml) 100 mls @ 200 mls/hr IVPB Q6 [facility] PRN Reason: Protocol Stop: 06/08/17 00:01 Last Admin: 06/02/17 05:35 Dose: 200 mls/hr Dextrose/Sodium Chloride (Dextrose 5%/0.45% Ns 1000 Ml) 1,000 mls @ 80 mls/hr IV .[id number] [facility] Last Admin: 06/01/17 23:44 Dose: 80 mls/hr Lamotrigine (Lamictal) 200 mg PO BID [facility] Last Admin: 06/01/17 17:58 Dose: 200 mg Levetiracetam (Keppra) 500 mg PO BID [facility] Last Admin: 06/01/17 17:58 Dose: 500 mg Metoprolol Succinate (Toprol Xl) 100 mg PO DAILY [facility] Last Admin: 06/01/17 12:14 Dose: 100 mg Potassium Chloride (K-Dur 20 Meq Er Tab) 20 meq PO BRK [facility] Last Admin: 06/01/17 08:11 Dose: Not Given Prednisone (Prednisone Tab) 5 mg PO DAILY [facility] Last Admin: 06/01/17 12:14 Dose: 5 mg - Labs Labs: 06/02/17 05:30 06/02/17 05:30 PT 10.6 Seconds (9.9-11.8) 05/31/17 11:30 INR 0.98 (0.93-1.08) 05/31/17 11:30 APTT 24.1 Seconds (23.7-30.8) 05/31/17 11:30 - Constitutional Appears: Non-toxic, No Acute Distress - Head Exam Head Exam: NORMAL INSPECTION - ENT Exam ENT Exam: Mucous Membranes Moist - Neck Exam Neck Exam: absent: Meningismus - Respiratory Exam Respiratory Exam: Decreased Breath Sounds - Cardiovascular Exam Cardiovascular Exam: +S1, +S2 - GI/Abdominal Exam GI & Abdominal Exam: Soft. absent: Tenderness Assessment and Plan - Assessment and Plan (Free Text) Plan: Assessment systemic inflammatory response syndrome, R/O sepsis, so far no specific source identified probable toxic-metabolic encephalopathy from hypernatremia, clinically improving history of acute arenas-sinusitis with associated bilateral otomastoiditis history of ventilator-dependent respiratory failure from healthcare-associated pneumonia history of chemotherapy-associated neutropenia lymphoma on chemo and radiotherapy asthma history of left pyelonephritis seizures cataracts asthma Plan gave a dose of IV Vancomycin and on Zosyn (day 2) pending final blood and urine cx; CT chest does not show infiltrates and CT head does not show acute pathology will continue to follow clinically
[2017-06-02] MEDS ORDERED: Oxycodone/Acetaminophen 5/325 mg Tab PO PRN (11:38)
--- NOTE | 2017-06-02 11:49 | CP.PCM.PN ---
<Harriet Edward - Last Filed: 06/02/17 11:58> Subjective - Date & Time of Evaluation Date of Evaluation: 06/02/17 Time of Evaluation: 11:46 - Subjective Subjective: PGY-[address] Bynum Pt aaox3. L hip pain. pulses palable. no saddle paraesthsia Objective - Vital Signs/Intake and Output Vital Signs (last 24 hours): Temp Pulse Resp BP Pulse Ox 98.3 F 82 19 130/72 98 06/02/17 06:00 06/02/17 10:18 06/02/17 06:00 06/02/17 10:18 06/02/17 06:00 Intake and Output: 06/02/17 06/02/17 06:59 18:59 Intake Total 960 Output Total 500 Balance 460 - Medications Medications: Current Medications Acetaminophen (Tylenol 325mg Tab) 650 mg PO Q6H PRN PRN Reason: Pain, moderate (4-7) Last Admin: 06/01/17 14:40 Dose: 650 mg Docusate Sodium (Colace) 100 mg PO TID [facility] Last Admin: 06/02/17 10:19 Dose: 100 mg Famotidine (Pepcid) 20 mg PO DAILY [facility] Last Admin: 06/02/17 10:19 Dose: 20 mg Piperacillin Sod/Tazobactam Sod (Zosyn 3.375 In Ns 100ml) 100 mls @ 200 mls/hr IVPB Q6 ARVIND PRN Reason: Protocol Stop: 06/08/17 00:01 Last Admin: 06/02/17 05:35 Dose: 200 mls/hr Dextrose/Sodium Chloride (Dextrose 5%/0.45% Ns 1000 Ml) 1,000 mls @ 80 mls/hr IV .[id number] [facility] Last Admin: 06/01/17 23:44 Dose: 80 mls/hr Lamotrigine (Lamictal) 200 mg PO BID [facility] Last Admin: 06/02/17 10:19 Dose: 200 mg Levetiracetam (Keppra) 500 mg PO BID [facility] Last Admin: 06/02/17 10:19 Dose: 500 mg Metoprolol Succinate (Toprol Xl) 100 mg PO DAILY [facility] Last Admin: 06/02/17 10:18 Dose: 100 mg Oxycodone/Acetaminophen (Percocet 5/325 Mg Tab) 1 tab PO Q4H PRN PRN Reason: Pain, moderate (4-7) Stop: 06/05/17 11:39 Potassium Chloride (K-Dur 20 Meq Er Tab) 20 meq PO BRK [facility] Last Admin: 06/02/17 08:27 Dose: 20 meq Prednisone (Prednisone Tab) 5 mg PO DAILY [facility] Last Admin: 06/02/17 10:18 Dose: 5 mg - Labs Labs: 06/02/17 05:30 06/02/17 05:30 PT 10.6 Seconds (9.9-11.8) 05/31/17 11:30 INR 0.98 (0.93-1.08) 05/31/17 11:30 APTT 24.1 Seconds (23.7-30.8) 05/31/17 11:30 - Constitutional Appears: Cachectic, Chronically Ill - Head Exam Head Exam: ATRAUMATIC, NORMAL INSPECTION, NORMOCEPHALIC - Eye Exam Eye Exam: EOMI, Normal appearance, PERRL. absent: Scleral icterus Pupil Exam: NORMAL ACCOMODATION - ENT Exam ENT Exam: Mucous Membranes Moist - Respiratory Exam Respiratory Exam: Clear to Ausculation Bilateral. absent: Rales, Rhonchi, Wheezes - Cardiovascular Exam Cardiovascular Exam: REGULAR RHYTHM, +S1, +S2 - GI/Abdominal Exam GI & Abdominal Exam: Soft. absent: Firm, Rigid, Tenderness - Extremities Exam Extremities Exam: Normal Capillary Refill, Pedal Edema. absent: Calf Tenderness Additional comments: puente intact, urine yellow, light, not cloudy - Neurological Exam Neurological Exam: Alert, Awake, Oriented x3 - Psychiatric Exam Psychiatric exam: Normal Affect, Normal Mood - Skin Skin Exam: Dry, Warm Assessment and Plan - Assessment and Plan (Free Text) Plan: Ms Kelsie Barlow, 66 AA F, from [facility], had fever of 102.5, admitted for AMS, sepsis, dehydration. 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 At baseline, pt is B&B incontinent. Pancytopenia - Prednisone 5 daily - Leucopenia = sepsis vs lymphoma - anemia = stable at 10 Sepsis - Afebile, WBC 2.5, lactate 1.2, procal 1.03 (high) - CT-chest w/o contrast: unremarkable - Zosyn BATSHEVA, prerenal azotemia - Monitor Urine Output Hypernatremia, dehydation - D5-halfNS @ 80 - Monitor electrolyte closely - On K-dur Stage IV small cell lymphocytic lymphoma, metastatic to brain Disphagia Seizure Hx - Keppra 500 BID HTN - not on meds Prophylaxis - SCD - Pepcid 20 daily S/R/D/w Dr. Bynum <Britni Bynum P - Last Filed: 06/04/17 00:51> Objective - Vital Signs/Intake and Output Vital Signs (last 24 hours): Temp Pulse Resp BP Pulse Ox 98.9 F 75 16 140/80 94 L 06/03/17 18:00 06/03/17 19:13 06/03/17 18:00 06/03/17 18:45 06/03/17 06:00 Intake and Output: 06/03/17 06/04/17 18:59 06:59 Intake Total 480 Output Total 600 Balance -120 - Medications Medications: Current Medications Acetaminophen (Tylenol 325mg Tab) 650 mg PO Q6H PRN PRN Reason: Pain, moderate (4-7) Last Admin: 06/01/17 14:40 Dose: 650 mg Docusate Sodium (Colace) 100 mg PO TID [facility] Last Admin: 06/03/17 18:13 Dose: 100 mg Enoxaparin Sodium (Lovenox) 30 mg SC DAILY [facility] PRN Reason: Protocol Last Admin: 06/03/17 18:12 Dose: 30 mg Famotidine (Pepcid) 20 mg PO DAILY [facility] Last Admin: 06/03/17 10:41 Dose: 20 mg Potassium Chloride 20 meq/ (Dextrose/Sodium Chloride) 1,010 mls @ 80 mls/hr IV .[id number] [facility] Last Admin: 06/03/17 06:21 Dose: 80 mls/hr Lamotrigine (Lamictal) 200 mg PO BID [facility] Last Admin: 06/03/17 18:12 Dose: 200 mg Levetiracetam (Keppra) 500 mg PO BID [facility] Last Admin: 06/03/17 18:13 Dose: 500 mg Metoprolol Succinate (Toprol Xl) 100 mg PO DAILY [facility] Last Admin: 06/03/17 10:41 Dose: 100 mg Oxycodone/Acetaminophen (Percocet 5/325 Mg Tab) 1 tab PO Q4H PRN PRN Reason: Pain, moderate (4-7) Stop: 06/05/17 11:39 Last Admin: 06/02/17 17:32 Dose: 1 tab Potassium Chloride (K-Dur 20 Meq Er Tab) 20 meq PO BRK [facility] Last Admin: 06/03/17 10:41 Dose: 20 meq Prednisone (Prednisone Tab) 5 mg PO DAILY [facility] Last Admin: 06/03/17 10:41 Dose: 5 mg - Labs Labs: 06/03/17 07:04 06/03/17 07:04 PT 10.6 Seconds (9.9-11.8) 05/31/17 11:30 INR 0.98 (0.93-1.08) 05/31/17 11:30 APTT 24.1 Seconds (23.7-30.8) 05/31/17 11:30 Attending/Attestation - Attestation I have personally seen and examined this patient.: Yes I have fully participated in the care of the patient.: Yes I have reviewed all pertinent clinical information, including history, physical exam and plan: Yes
[2017-06-02] MEDS: Dextrose 5%/0.45% NS 1,000 ML IV SCH (13:31)
--- NOTE | 2017-06-02 14:45 | RAD ---
PROCEDURE: Radiographs of the pelvis. HISTORY: pain COMPARISON: None. FINDINGS: BONES: Pelvic Bones: Unremarkable. Hips: Grossly unremarkable. JOINTS: Sacroiliac Joints: Unremarkable. Pubic Symphysis: Unremarkable. OTHER FINDINGS: None. IMPRESSION: Unremarkable radiographs of the pelvis.
--- NOTE | 2017-06-02 14:47 | RAD ---
PROCEDURE: Left Hip and pelvis X-ray Radiographs. HISTORY: pain COMPARISON: None. FINDINGS: BONES: Normal. No fracture. JOINTS: Normal. SOFT TISSUES: Normal. OTHER FINDINGS: None. IMPRESSION: Negative study
--- NOTE | 2017-06-02 14:52 | RAD ---
PROCEDURE: Left Knee Radiographs. HISTORY: Pain. COMPARISON: None. FINDINGS: BONES: Normal. No fracture. JOINTS: Normal. No osteoarthritis. JOINT EFFUSION: None. OTHER FINDINGS: None. IMPRESSION: Normal radiographs of the left knee.
[2017-06-02] MEDS: Potassium Chloride 20 MEQ in Dextrose 5%/0.45% NS 1,000 ML IV SCH (15:49)
--- NOTE | 2017-06-02 16:16 | CON ---
DATE: 06/01/2017 The patient seen earlier today in room 262, bed 2. CHIEF COMPLAINT: Weakness times several days. HISTORY OF PRESENT ILLNESS: This is a 66-year-old female known to me from previous admission who was seen in the emergency room by Dr. Cruz Salas. In the emergency room, patient had been transferred from the [facility] because of weakness and patient had a change in her mental status and had fevers and there have been also no chest pain, shortness of breath or cough. No abdominal pain, diarrhea, or constipation. PAST MEDICAL HISTORY: Significant for hypertension, significant for lymphoma with metastasis to the brain, history of seizures, chronic obstructive lung disease and coronary artery disease and patient had also history of anxiety. PAST SURGICAL HISTORY: Significant for hysterectomy and had a port in the right chest. MEDICATIONS AT THE [facility] HOME: Include: 1. Pepcid. 2. Norvasc. 3. Keppra. 4. Zestril. 5. Metoprolol. PHYSICAL EXAMINATION: GENERAL: The patient in bed, in no acute distress. She knows who she is. She knows where she is, but she is not aware of what year it is. VITAL SIGNS: In the emergency room, temperature was 101.8, which now is down to 98 and in the emergency room patient's heart rate was up to 120, which is now down to 91, respiratory rate of 20, blood pressure is 120/70, and O2 saturation was 98% on nasal cannula initially. HEENT: Unremarkable. NECK: Supple. LUNGS: Decreased breath sounds. HEART: Normal S1 and S2. ABDOMEN: Soft, nontender. LABORATORY EXAMINATION: Reveals a white count of 2.0 with a deferential of 62%, 23% lymphocytosis, patient's hemoglobin of 10.5 and platelets of 91,000. Coagulation is noted. INR is 0.9. PTT is 24. PT is 10; 23 to 30 is her normal range for PT. ABG is noted. Chemistries reveals that the patient's creatinine yesterday was at 2.0, it had been 0.9 in the past. The patient's LDH is 1086, CK was 104, and C-reactive protein greater than 15 and procalcitonin of 0.94 and AST of 67. Urinalysis; 0 to 2 wbc's. The patient had a chest x-ray and with no active disease, but the Port-A-Cath was seen. The patient also had a CAT scan of the head, which shows no acute findings, chronic microvascular changes. *------* note is reviewed and Dr. Raheel Sheikh's note is reviewed. ASSESSMENT: The patient is a 66-year-old female with change in her mental status, fever, hypernatremia, stage IV lymphoma with trigeminal brain involvement had radiation. PLAN: This is a 66-year-old female from the [facility] with a history of hypertension, stage IV lymphoma with metastasis to the brain, history of seizures, chronic obstructive lung disease, coronary artery disease, anxiety who has a right Port-A-Cath in the right chest, history of hysterectomy was admitted now with change in mental status, tachycardia with a fever of 101.8 with a negative chest x-ray, negative urinalysis with decreased breath sounds in the lungs. 1. Systemic inflammatory response syndrome must rule out bacteremia secondary to Port-A-Cath must rule out healthcare associated pneumonia in a patient with acute kidney injury and rhabdomyolysis. We will order a CAT scan of the chest to rule out nosocomial pneumonia. We will check on the blood cultures to rule out bacteremia from the Port-A-Cath. We will order a procalcitonin and CAT scan of the chest to rule out healthcare associated pneumonia. Since the patient's initial procalcitonin was elevated at 0.9, but the creatinine was 2.0 the renal failure is improved, now down to 1.2. We will make further recommendations pending blood culture results, repeat procalcitonin following the renal function and rhabdomyolysis in a patient with systemic inflammatory response syndrome, acute kidney injury and rhabdomyolysis on Zosyn and had received the dose of vancomycin pending arenas-culture initial workup results and urine culture and also the urinalysis is negative and we will make further recommendations. Jose Suh MD
--- NOTE | 2017-06-02 16:43 | HP ---
HISTORY OF PRESENT ILLNESS: A 66-year-old black female with history of seizure disorder, lymphoma; metastatic to the brain, chronic dysphagia, failure to thrive. The patient was recently discharged and sent to rehab facility. She had done poorly there and recently had some change in mental status with fever and chills, came to the hospital and was found to have dehydration with elevated sodium, elevated BUN and creatinine, decreased white count at 2.5, today 2, was hypotensive, and elevated BUN and creatinine of 68 and 1.4. The patient was admitted to the ER. She was started on IV antibiotics. Septic workup was done. The patient was rehydrated. Seen in consultation by Infectious Disease. Today, she is more awake, more alert. Temperature is 98.2, blood pressure is up to 100/70. Her apical was 91. Her BUN and creatinine have decreased down to 50 and 1.2. Sodium is still elevated at 154. Her white count has dropped to 2, her hemoglobin is 10.6 and platelet count is 91,000. Consultation has been done also with Dr. Bynum who is her oncologist. She has not had any chemotherapy in many, many months. PHYSICAL EXAMINATION GENERAL: She is a thin, black female. Awake and arousable, conversant without any complaints. CHEST: Clear to auscultation. HEART: Regular sinus rhythm. ABDOMEN: Thin but benign. EXTREMITIES: Without cyanosis, clubbing, or edema. NEUROLOGIC: Grossly intact expect for some mild lethargy, but the patient is arousable and responds to commands. PLAN: To continue IV antibiotics, IV fluids, hydration. Consultation with Oncology because of the neutropenia and Infectious Disease. Awaiting blood cultures and urine cultures. Alex Butt MD
--- NOTE | 2017-06-02 21:23 | PN ---
DATE: SUBJECTIVE: The patient is 66 years old, patient of Dr. Butt, covering for him, who came to emergency room for generalized weakness. She was also found have fever and altered mental status. She does have diagnoses of hypertension, history of lymphoma with metastasis to the brain, history of seizure disorder, COPD and *------*. PHYSICAL EXAMINATION GENERAL: Today the patient is awake and alert, complain of left leg pain it hurts to move, denies any trauma. As per nurse, eating fair. VITAL SIGNS: She is afebrile, pulse 82, respirations 20, blood pressure 127/72. LUNGS: Bilateral fair air flow. No rhonchi or crackle. HEART: S1 and S2 audible. ABDOMEN: Soft, nontender, no rebound, no regarding. NEUROLOGICALLY: She is awake and alert, able to make her needs made aware. She is having difficulty bending and extending her left leg, there are no obvious signs of trauma or bruise. LABORATORY DATA: WBC 2.5, hemoglobin 10.3, hematocrit 33.1 and platelet of 73. Chemistry; sodium 151, potassium 3.6, chloride 118, CO2 of 28, BUN 35, creatinine 1.0 and blood sugar 127. AST 97, ALT 73, CPK 730, procalcitonin is 1.03. Her urinalysis is unremarkable. Blood culture is of negative. She had CT scan of the chest done, that is unremarkable. ASSESSMENT AND PLAN: 1. Intractable left leg pain, rule out metastasis versus fracture. 2. Hypertension. 3. Dehydration and hypernatremia. 4. Pansinusitis with bilateral mastoiditis. 5. History of lymphoma status post chemotherapy. 6. History of seizure disorder. 7. Currently the patient is on vancomycin and Zosyn. I will order the x-ray of left hip and knee and will continue her on IV fluid, potassium supplementation and she is on Keppra and Lamictal for therapeutic and preventive reason. I will give her analgesic as needed. She is on prednisone 5 mg daily and we will intermittently follow her CBC and CMP. Olivia Ferreira MD
[2017-06-03] MEDS: Piperacillin/Tazobact 3.375 gm 100 ML IVPB SCH ×2 (00:43→06:19)
--- NOTE | 2017-06-03 01:11 | PN ---
DATE: 06/02/2017 SUBJECTIVE: The patient is seen lying in bed. She is awake, she is alert. She is much more responsive today. She reports pain in her lower extremities. PHYSICAL EXAMINATION: GENERAL: Thinly built, cachectic, elderly lady, lying in bed. VITAL SIGNS: Blood pressure 127/72, heart rate 82, respiratory rate 20, temperature 97.1. HEENT: Normocephalic, atraumatic, positive pallor. NECK: Supple, no JVD. LUNGS: Bilateral equal air entry. CARDIOPULMONARY: S1 and S2, regular rate and rhythm. No murmur, no rub. ABDOMEN: Soft, nontender, bowel sounds present. EXTREMITIES: No lower extremity edema. INTAKE AND OUTPUT: 1979/1900. LABORATORY DATA: WBC 2.5, hemoglobin 10.3, hematocrit 33, platelets 73. Sodium 151, potassium 3.6, chloride 118, CO2 of 28, BUN 35, creatinine 1.0, glucose 127, calcium 8.8, AST 97, ALT 73, albumin 2.8, corrected calcium is 9.7. CURRENT MEDICATIONS: Colace, D5 half normal saline at 80, potassium 20 mEq daily, Keppra, Lamictal, Pepcid, Percocet, prednisone, Toprol-XL, Tylenol, Zosyn. ASSESSMENT AND PLAN: 1. Acute kidney injury, resolving. 2. Hypernatremia secondary to dehydration, slowly improving. 3. Hypokalemia. 4. Anemia. 5. Pancytopenia. 6. History of lymphoma with brain metastasis. 7. Seizure disorder. 8. Hypertension. PLAN: 1. Add potassium 20 mEq to each liter of IV fluids. 2. Push p.o. intake. 3. Continue empiric antibiotics as per infectious disease recommendations. 4. Monitor daily electrolytes. Alexa Camarillo MD
[2017-06-03] MEDS: Potassium Chloride 20 MEQ in Dextrose 5%/0.45% NS 1,000 ML IV SCH (06:21)
[2017-06-03 07:13] LABS: BASO # 0.19 K/mm3 (0.0-2.0); BASO % 4.2 % (0.0-3.0); EOS % 0.9 % (1.5-5.0); GRAN # 0.64 (1.4-6.5); GRAN % 14.3 % (50.0-68.0); HEMOGLOBIN 9.3 gm/dL (12.0-16.0); LYMPH # 2.5 (1.2-3.4); LYMPH % 55.8 % (22.0-35.0); MEAN CELL VOLUME 95.3 fL (80.0-105.0); MEAN CORPUSCULAR HEMOGLOBIN 29.2 pg (25.0-35.0); MEAN CORPUSCULAR HGB CONC 30.6 g/dl (31.0-37.0); MEAN PLATELET VOLUME 10.3 fl (7.0-11.0); MONO # 1.1 (0.1-0.6); MONO % 24.8 % (1.0-6.0); PLATELET COUNT 70 10^3/uL (120.0-450.0); RBC 3.19 10^6/uL (3.5-6.1); RED CELL DISTRIBUTION WIDTH 13.8 % (11.5-14.5); WHITE BLOOD COUNT 4.5 10^3/ul (4.5-11.0)
[2017-06-03 07:28] LABS: ALBUMIN 2.5 g/dL (3.0-4.8); ALT/SGPT 84 U/L (7-56); AST/SGOT 90 U/L (15-39); BLOOD UREA NITROGEN 25 mg/dL (7-21); CALCIUM 8.6 mg/dL (8.4-10.5); GFR AFRICAN-AMERICAN > 60; GFR NON-AFRICAN AMERICAN > 60
[2017-06-03 07:43] LABS: CK-MB 2.5 ng/mL (0.0-3.6)
[2017-06-03] MEDS: Metoprolol Succinate 100 mg XL Tab PO SCH (10:41)
[2017-06-03] MEDS: Potassium Chloride 20 mEq ER Tab PO SCH (10:41)
--- NOTE | 2017-06-03 11:50 | CP.PCM.PN ---
Subjective - Date & Time of Evaluation Date of Evaluation: 06/03/17 Time of Evaluation: 10:25 - Subjective Subjective: Comfortable in bed, not in distress, afebrile, much more awake. Objective - Vital Signs/Intake and Output Vital Signs (last 24 hours): Temp Pulse Resp BP Pulse Ox 97.1 F L 69 20 158/92 H 94 L 06/03/17 06:00 06/03/17 06:00 06/03/17 06:00 06/03/17 06:00 06/03/17 06:00 Intake and Output: 06/03/17 06/03/17 06:59 18:59 Intake Total 2430 Output Total 550 Balance 1880 - Medications Medications: Current Medications Acetaminophen (Tylenol 325mg Tab) 650 mg PO Q6H PRN PRN Reason: Pain, moderate (4-7) Last Admin: 06/01/17 14:40 Dose: 650 mg Docusate Sodium (Colace) 100 mg PO TID [facility] Last Admin: 06/02/17 17:27 Dose: Not Given Famotidine (Pepcid) 20 mg PO DAILY [facility] Last Admin: 06/02/17 10:19 Dose: 20 mg Piperacillin Sod/Tazobactam Sod (Zosyn 3.375 In Ns 100ml) 100 mls @ 200 mls/hr IVPB Q6 ARVIND PRN Reason: Protocol Stop: 06/08/17 00:01 Last Admin: 06/03/17 06:19 Dose: 200 mls/hr Potassium Chloride 20 meq/ (Dextrose/Sodium Chloride) 1,010 mls @ 80 mls/hr IV .[id number] [facility] Last Admin: 06/03/17 06:21 Dose: 80 mls/hr Lamotrigine (Lamictal) 200 mg PO BID [facility] Last Admin: 06/02/17 17:27 Dose: 200 mg Levetiracetam (Keppra) 500 mg PO BID [facility] Last Admin: 06/02/17 17:26 Dose: 500 mg Metoprolol Succinate (Toprol Xl) 100 mg PO DAILY [facility] Last Admin: 06/02/17 10:18 Dose: 100 mg Oxycodone/Acetaminophen (Percocet 5/325 Mg Tab) 1 tab PO Q4H PRN PRN Reason: Pain, moderate (4-7) Stop: 06/05/17 11:39 Last Admin: 06/02/17 17:32 Dose: 1 tab Potassium Chloride (K-Dur 20 Meq Er Tab) 20 meq PO BRK [facility] Last Admin: 06/02/17 08:27 Dose: 20 meq Prednisone (Prednisone Tab) 5 mg PO DAILY [facility] Last Admin: 06/02/17 10:18 Dose: 5 mg - Labs Labs: 06/02/17 05:30 06/02/17 05:30 PT 10.6 Seconds (9.9-11.8) 05/31/17 11:30 INR 0.98 (0.93-1.08) 05/31/17 11:30 APTT 24.1 Seconds (23.7-30.8) 05/31/17 11:30 - Constitutional Appears: Non-toxic, No Acute Distress - Head Exam Head Exam: NORMAL INSPECTION - Neck Exam Neck Exam: absent: Meningismus - Respiratory Exam Respiratory Exam: Decreased Breath Sounds - Cardiovascular Exam Cardiovascular Exam: +S1, +S2 - GI/Abdominal Exam GI & Abdominal Exam: Soft. absent: Tenderness Assessment and Plan - Assessment and Plan (Free Text) Plan: Assessment systemic inflammatory response syndrome, no source of sepsis identified probable toxic-metabolic encephalopathy from hypernatremia, clinically improving history of acute arenas-sinusitis with associated bilateral otomastoiditis history of ventilator-dependent respiratory failure from healthcare-associated pneumonia history of chemotherapy-associated neutropenia lymphoma on chemo and radiotherapy asthma history of left pyelonephritis seizures cataracts asthma Plan on Zosyn (day 3) - blood and urine cx are negative; CT chest does not show infiltrates and CT head does not show acute pathology; PCT was elevated but the patient had acute renal failure - will d/c Zosyn and observe will continue to follow clinically
[2017-06-03] MEDS: Enoxaparin 30 mg Syringe SC SCH (18:12)
--- NOTE | 2017-06-03 23:08 | PN ---
DATE: 06/03/2017 SUBJECTIVE: The patient is a 66-year-old seen and examined. by the bedside. She seems more awake and alert today. She has less pain. X-rays of the hip, pelvis, and knee done with no fracture. PHYSICAL EXAMINATION VITAL SIGNS: She is afebrile, pulse 74, respirations 16, blood pressure 169/92. LUNGS: Bilateral fair air flow. Border respiratory effort. HEART: S1, S2 audible. ABDOMEN: Soft, nontender. No rebound. No guarding. NEUROLOGIC: She is awake and alert, able to answer appropriately. EXTREMITIES: She has limited movement in her right arm, limited abduction and extension. Patient states she was given steroid injection by Dr. Cortez and she is seeking to get consultation by him again. She also has limited movement in her left lower extremities. LABORATORY DATA: Exam today, WBC 4.5, hemoglobin 9.3, hematocrit 30.4, platelet of 70. Chemistry, sodium 148, potassium 3.5, chloride 113, CO2 28, BUN 25, creatinine 0.7, blood sugar of 101. Procalcitonin 1.03. Her blood culture and urine cultures are negative. ASSESSMENT AND PLAN: 1. Rodriguez sinusitis. 2. Right shoulder rotator cuff tear. 3. Hypertension. 4. Hypernatremia, resolving. 5. History of lymphoma status post chemotherapy. 6. History of seizure disorder. So, plan is patient is currently on IV fluid. Her oral intake is poor. We will continue diet. We will continue her on Keppra and Lamictal. She is on Percocet as needed. I will start her on some low-dose Lovenox for DVT prophylaxis. Out of bed to chair. Physical therapy evaluation has been requested. According to that, we will make disposition and plan. She might go back to [facility] from where she was transferred. Olivia Ferreira MD
--- NOTE | 2017-06-04 03:45 | PN ---
DATE: 06/03/2017 SUBJECTIVE: The patient is currently seen on telemetry, lying in bed. IV fluids were infusing. The patient is speaking very little and she is difficult to understand. MEDICATIONS: Medication lists reviewed. The patient is currently on Colace,potassium supplements, Keppra, Lamictal, Pepcid, Percocet p.r.n., IV fluid with potassium chloride, prednisone, Toprol, Tylenol and Zosyn p.r.n. PHYSICAL EXAMINATION: INTAKE/OUTPUT: Intake 2430, output 550. VITAL SIGNS: Blood pressure 132 to 158 systolic, diastolic 86 to 92. Temperature 97.1, respiratory rate 20 with a pulse of 69. HEENT: Shows head to be normocephalic, atraumatic, Conjunctivae are pale. Sclerae nonicteric. NECK: Supple. No neck vein distention. CARDIOPULMONARY: Shows regular rate and rhythm without audible murmurs, rubs or gallops. LUNGS: Chest clear to auscultation and percussion. No rales, no rhonchi, no wheezing. ABDOMEN: Soft. Nondistended. Bowel sounds normal. No rebound, no guarding, no masses. EXTREMITIES: Showed no lower extremity cyanosis, clubbing or edema. LABORATORY DATA AND IMAGING: Labs from today, CBC; white blood cell count improved to 4.5, hemoglobin 9.3 with a platelet count of 70,000. Chemistries: Sodium is improved to 148, down from 154. Potassium is 3.5, chloride 113 with CO2 of 28, BUN is down to 25 from a high of 63, creatinine is down to 0.7 from a high of 2.0. She is at baseline levels. Glucose is 101. Mild elevation of her liver enzymes. AST 90 with an ALT of 84. Mild elevation of her CPK at 610. Albumin is 2.5 with a calcium of 8.6. Magnesium is 2.2, phosphorus level was 4.6 three days ago. ASSESSMENT: 1. Acute renal failure, resolved. The patient had prerenal azotemia likely secondary to volume depletion, hemoconcentration and dehydration. This has resolved with hypotonic IV fluid administration. 2. Hypernatremia, resolved. Sodium is down from a high of 154, now down to 148. It is unclear that the patient is taking an adequate amounts of oral hydration and nutrition. So for right now, we will continue IV fluid hydration with hypotonic fluids. 3. History of pancytopenia. 4. 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 The patient continues on Lamictal and Keppra. 5. History of hypertension, blood pressure control is at the upper range of acceptability. 6. Possible history of sepsis. All cultures are negative. The patient continues on empiric antibiotic therapy pending final culture results. PLAN: 1. We would continue hypotonic IV fluid administration with potassium supplementation. It is not clear to me that patient will take an adequate amounts of hydration and she would likely once again develop prerenal azotemia, hemoconcentration and hypernatremia. 2. Continue to monitor I's and O's, keep intake ahead of output. 3. Continue to follow labs on a daily basis. 4. Continue medications to prevent seizures. Jerry Chatman MD [email or web address]
[2017-06-04] MEDS: Potassium Chloride 20 MEQ in Dextrose 5%/0.45% NS 1,000 ML IV SCH ×2 (03:50→18:44)
[2017-06-04 07:57] LABS: BASO # 0.07 K/mm3 (0.0-2.0); BASO % 1.1 % (0.0-3.0); EOS # 0.1 (0.0-0.7); EOS % 0.8 % (1.5-5.0); GRAN # 1.15 (1.4-6.5); GRAN % 18.6 % (50.0-68.0); HEMOGLOBIN 10.4 gm/dL (12.0-16.0); LYMPH # 4.2 (1.2-3.4); MEAN CELL VOLUME 91.1 fL (80.0-105.0); MEAN CORPUSCULAR HEMOGLOBIN 29.9 pg (25.0-35.0); MEAN CORPUSCULAR HGB CONC 32.8 g/dl (31.0-37.0); MEAN PLATELET VOLUME 9.9 fl (7.0-11.0); MONO # 0.7 (0.1-0.6); MONO % 11.5 % (1.0-6.0); PLATELET COUNT 94 10^3/uL (120.0-450.0); RBC 3.48 10^6/uL (3.5-6.1); RED CELL DISTRIBUTION WIDTH 13.5 % (11.5-14.5); WHITE BLOOD COUNT 6.2 10^3/ul (4.5-11.0)
[2017-06-04 08:05] LABS: ALB/GLOB RATIO 1.2 (1.1-1.8); ALBUMIN 2.8 g/dL (3.0-4.8); ALT/SGPT 150 U/L (7-56); AST/SGOT 149 U/L (15-39); BLOOD UREA NITROGEN 12 mg/dL (7-21); CALCIUM 8.8 mg/dL (8.4-10.5); GFR AFRICAN-AMERICAN > 60; GFR NON-AFRICAN AMERICAN > 60; MAGNESIUM 1.5 mg/dL (1.7-2.2)
[2017-06-04 08:21] LABS: CK-MB 3.2 ng/mL (0.0-3.6)
[2017-06-04] MEDS: Metoprolol Succinate 100 mg XL Tab PO SCH (09:14)
[2017-06-04] MEDS: Potassium Chloride 20 mEq ER Tab PO SCH (09:24)
[2017-06-04] MEDS: Enoxaparin 30 mg Syringe SC SCH (09:24)
[2017-06-04] MEDS ORDERED: Magnesium Sulfate 1 gm in D5W 1 GM/100 ML BAG IV ONE (10:11)
--- NOTE | 2017-06-04 14:12 | RAD ---
PROCEDURE: Radiographs of the Left Shoulder HISTORY: pain COMPARISON: No prior. FINDINGS: BONES: No evidence of acute displaced fracture nor dislocation. The osseous structures appear intact JOINTS: Moderate degenerative osteoarthritis left acromioclavicular joint. Mild to moderate degenerative osteoarthritis left glenohumeral joint. SOFT TISSUES: Soft tissues appear grossly unremarkable. OTHER FINDINGS: None. IMPRESSION: No acute fractures. DJD left acromioclavicular and to a lesser degree left glenohumeral joints.
--- NOTE | 2017-06-04 19:05 | CP.PCM.PN ---
Subjective - Date & Time of Evaluation Date of Evaluation: 06/04/17 Time of Evaluation: 16:00 - Subjective Subjective: No acute complaints. Previous L shoulder pain improved now 12 ROS otherwise negative Objective - Vital Signs/Intake and Output Vital Signs (last 24 hours): Temp Pulse Resp BP Pulse Ox 97.0 F L 79 17 155/95 H 98 06/04/17 17:33 06/04/17 17:33 06/04/17 17:33 06/04/17 17:33 06/04/17 06:00 Intake and Output: 06/04/17 06/04/17 06:59 18:59 Intake Total 200 Output Total 2100 1200 Balance -2100 -1000 - Medications Medications: Current Medications Acetaminophen (Tylenol 325mg Tab) 650 mg PO Q6H PRN PRN Reason: Pain, moderate (4-7) Last Admin: 06/01/17 14:40 Dose: 650 mg Amlodipine Besylate (Norvasc) 10 mg PO DAILY [facility] Last Admin: 06/04/17 11:18 Dose: 10 mg Docusate Sodium (Colace) 100 mg PO TID [facility] Last Admin: 06/04/17 18:16 Dose: 100 mg Enoxaparin Sodium (Lovenox) 30 mg SC DAILY [facility] PRN Reason: Protocol Last Admin: 06/04/17 09:24 Dose: 30 mg Famotidine (Pepcid) 20 mg PO DAILY [facility] Last Admin: 06/04/17 09:24 Dose: 20 mg Potassium Chloride 20 meq/ (Dextrose/Sodium Chloride) 1,010 mls @ 80 mls/hr IV .[id number] [facility] Last Admin: 06/04/17 18:44 Dose: 80 mls/hr Lamotrigine (Lamictal) 200 mg PO BID [facility] Last Admin: 06/04/17 18:17 Dose: 200 mg Levetiracetam (Keppra) 500 mg PO BID [facility] Last Admin: 06/04/17 18:18 Dose: 500 mg Metoprolol Succinate (Toprol Xl) 100 mg PO DAILY [facility] Last Admin: 06/04/17 09:14 Dose: 100 mg Oxycodone/Acetaminophen (Percocet 5/325 Mg Tab) 1 tab PO Q4H PRN PRN Reason: Pain, moderate (4-7) Stop: 06/05/17 11:39 Last Admin: 06/02/17 17:32 Dose: 1 tab Potassium Chloride (K-Dur 20 Meq Er Tab) 20 meq PO BRK [facility] Last Admin: 06/04/17 09:24 Dose: 20 meq Prednisone (Prednisone Tab) 5 mg PO DAILY [facility] Last Admin: 06/04/17 11:22 Dose: 5 mg - Labs Labs: 06/04/17 07:00 06/04/17 07:00 PT 10.6 Seconds (9.9-11.8) 05/31/17 11:30 INR 0.98 (0.93-1.08) 05/31/17 11:30 APTT 24.1 Seconds (23.7-30.8) 05/31/17 11:30 - Constitutional Appears: Non-toxic, Confused - Head Exam Head Exam: ATRAUMATIC, NORMAL INSPECTION, NORMOCEPHALIC - Respiratory Exam Respiratory Exam: Clear to Ausculation Bilateral, NORMAL BREATHING PATTERN - GI/Abdominal Exam GI & Abdominal Exam: Soft, Normal Bowel Sounds. absent: Tenderness - Back Exam Back Exam: NORMAL INSPECTION Assessment and Plan - Assessment and Plan (Free Text) Assessment: Ms. Barlow deysi 66 y/o AA female with pmhx stage IV CLL/SLL s/p R-CVP previously currently admitted with SIRS/sepsis physiology, AMS . hypernatremia and presumptive pre-renal azotemia. Patient not found ot have infectious source and afebrile and was d/c'ed off of antibiotics. Mentation improving with correction of hypernatremia with IV hydration. Patient underwent left shoulder X -ray which demosntrated no evidence of fracture. Counts recovering and likely secondary to previous sepsis physiology.
[2017-06-05] MEDS: Potassium Chloride 20 MEQ in Dextrose 5%/0.45% NS 1,000 ML IV SCH (02:47)
--- NOTE | 2017-06-05 04:08 | PN ---
DATE: 06/04/2017 SUBJECTIVE: The patient is a 66-year-old, seen and examined, complained of right shoulder pain. Her leg pain seems to be doing better. Eating fair. No nausea, vomiting, or diarrhea. PHYSICAL EXAMINATION VITAL SIGNS: She is afebrile, pulse 80, respirations 16, and blood pressure 173/96. LUNGS: Bilateral fair airflow. HEART: S1 and S2 audible. ABDOMEN: Soft and nontender. No rebound. No guarding. NEUROLOGIC: The patient is awake and alert, able to communicate, complains of right shoulder difficulty raising her arm. She states she had Dr. Cortez evaluate the patient and had injection given a couple of moths ago that helped her. Otherwise, her abdomen is soft and nontender. No rebound. No guarding. Neurologically, she is awake and alert. She complains of pain in the left leg and right shoulder. LABORATORY EXAM: WBC 6.2, hemoglobin 10.4, hematocrit 31.7, and platelets 94. Chemistry: Sodium 140, potassium 3.3, chloride 103, CO2 of 31, BUN 12, creatinine 0.6, blood sugar of 103. Magnesium is 1.7. ASSESSMENT AND PLAN: 1. Leukopenia secondary to chemotherapy. 2. Pancytopenia. 3. Pansinusitis. 4. Right acromioclavicular degenerative disease and glenohumeral joint arthritis. 5. Lymphoma with brain metastasis. 6. Hypernatremia, resolving. 7. Deconditioning and difficulty walking. The plan is for Dr. Cortez to evaluate the patient. The patient's oral intake is poor. We will continue her on IV fluids, give her extra dose of IV potassium, and also supplement her magnesium. Bone scan has been ordered to rule out any mets in the shoulder and left leg area. The patient is hemodynamically stable, discontinue her telemetry and start her on Norvasc since her blood pressure is fluctuating and running high. We will follow up her electrolytes, CMP, potassium, and magnesium and Dr. Butt will follow up the patient. Olivia Ferreira MD
[2017-06-05 05:16] LABS: ALB/GLOB RATIO 1.2 (1.1-1.8); ALBUMIN 2.8 g/dL (3.0-4.8); ALT/SGPT 116 U/L (7-56); AST/SGOT 92 U/L (15-39); BLOOD UREA NITROGEN 11 mg/dL (7-21); CALCIUM 8.8 mg/dL (8.4-10.5); GFR AFRICAN-AMERICAN > 60; GFR NON-AFRICAN AMERICAN > 60; MAGNESIUM 1.8 mg/dL (1.7-2.2)
[2017-06-05 05:19] LABS: HEMOGLOBIN 10.5 gm/dL (12.0-16.0); MEAN CELL VOLUME 89.8 fL (80.0-105.0); MEAN CORPUSCULAR HEMOGLOBIN 28.8 pg (25.0-35.0); MEAN CORPUSCULAR HGB CONC 32.1 g/dl (31.0-37.0); MEAN PLATELET VOLUME 9.8 fl (7.0-11.0); PLATELET COUNT 123 10^3/uL (120.0-450.0); RBC 3.64 10^6/uL (3.5-6.1); RED CELL DISTRIBUTION WIDTH 13.4 % (11.5-14.5); WHITE BLOOD COUNT 5.9 10^3/ul (4.5-11.0)
[2017-06-05 05:31] LABS: CK-MB 1.9 ng/mL (0.0-3.6)
--- NOTE | 2017-06-05 06:07 | CON ---
DATE: 06/04/2017 HISTORY OF PRESENT ILLNESS: This is a 66-year-old female in room 262, bed 2. The patient was to be seen for left shoulder pain worse than right shoulder pain. She has difficulty to converse with because of lack of ability to comprehend with what I am saying, Does not appear to be in any septic shoulder, but x-rays of the left shoulder showed a chronic rotator cuff tear. When she becomes medically more stable, I will evaluate her again, but there is no signs of infection at this time of the shoulder, so I do not to aspirate it. When she cooperates further more, I will re-examine her. FINAL DIAGNOSIS: Left shoulder pain from suspected rotator cuff arthropathy. Faraz Cortez DO
[2017-06-05 06:22] LABS: BAND 4 % (0-2); EOSINOPHIL 2 % (0.0-3.0); LYMPHOCYTE 59 % (22.0-35.0); MONOCYTE 9 % (1.0-6.0); NEUTROPHIL 26 % (50.0-70.0); NUCLEATED RED BLOOD CELL 1 %; PLATELET ESTIMATE NORMAL (NORMAL)
--- NOTE | 2017-06-05 09:52 | PN ---
ROOM: 262. Date of dictation is 06-03-17 BED: 2. SUBJECTIVE: The patient is examined in bed with her who at the bedside trying to feed her. Time is around 11:45. The patient is comfortable. She is not in any distress. She is taking Ensure. She has been afebrile, more awake, alert, and oriented x3. She was able to recognize me and even pronounce my name. The patient does not recall the events that brought her into the hospital. Per my discussion with the , the patient was deteriorating with altered mental status in the nursing facility or rehab that she was in and that is what prompted a transfer to the hospital. The patient was admitted with altered mental status, treated with IV antibiotics and was found to have an elevated sodium with abnormal electrolytes along with elevated creatine kinases, all of which have been gradually improving. PHYSICAL EXAMINATION: GENERAL: The patient is examined in bed. VITAL SIGNS: Today revealed T-max of 97.1, pulse of 69, respirations of 20, blood pressure 158/92 with a pulse ox of 94%. Intake is 2430 with an output of 550. HEENT: Head is normocephalic and atraumatic. Conjunctivae are pale. Previously noted numbness on the right side of the face has significantly improved. Numbness on the side of the tongue and the jaw on the right side have also significantly improved indicative of improvement in her underlying malignancy that was radiated on the right side of the face about 3-4 months ago. Examination of the oropharynx reveals no oropharyngeal lesions. Tongue is coated. No ulcerations are noted. NECK: Supple. There is no adenopathy. No jugular venous distention noted. CARDIOPULMONARY: Reveals PMI to be in the fifth intercostal space inside the midclavicular line, S1 and S2 are normal. No gallops or murmurs heard. LUNGS: Relatively clear to percussion and auscultation. ABDOMEN: Soft and nontender. Bowel sounds are present. EXTREMITIES: The patient is complaining of pain in the left hip, which at times is excruciating. The patient is able to move her lower extremities, albeit, she is complaining of pain in the left hip. X-rays done from yesterday failed to show any pathologic changes in the bone either in the hip, in the pelvis, so the question is where this pain coming from, could it be a referred pain. Ankles revealed no cyanosis, clubbing or edema in both feet. Right hip is within normal limits. The patient also is noted to have inability to raise her arm above her shoulder on the right side. She could only flex at the elbow, but she cannot raise her shoulder. The patient was documented to have torn rotator cuff with exquisite pain during the last admission and had MRI done, which confirmed it without any evidence of metastatic disease. The patient has extensively torn rotator cuff with the effusion for which she got steroidal injections by Dr. Faraz Cortez in the past. NEUROLOGIC: Reveals no gross focal deficits at this time. LYMPHATIC: Examination for adenopathy in the neck, axilla and groin reveals no new evidence of adenopathy. RECTAL: Deferred. LABORATORY DATA: Today's white count actually is elevated. Counts had been normal when she came in, had dropped down to 2.5 and it is better at this time. Today's labs on review show the following; white count is 4.5 with a hemoglobin of 9.3, hematocrit 30.4, platelet count is 70,000, when she came in the platelet count was 127,000. The patient does respond to Neupogen in the past and her initial bone marrow was affected by lymphoma for which she has not had any treatment now for more than 15 months. The concern for the anemia and thrombocytopenia is of concern from the point of view of progression of her lymphoma even though her last scans were negative. Chemistries from today revealed sodium of 148 which is improved, potassium is 3.5, chloride 113, BUN of 25, creatinine of 1.7, AST is 90, ALT is 84, and LDH is 610, which is gradually coming down, total protein is 4.9 with an albumin of 2.5 and A/G ratio of 1, which is very low. Procalcitonin on admission was 1.03. MEDICATIONS: The patient's current medications were reviewed. She is on Tylenol 650 mg p.r.n. She is on Colace 100 mg t.i.d., Pepcid 20 mg p.o. daily. An antibiotic Zosyn has been stopped as of today. She is on IV fluids with K 20 mEq at 80 mL an hour. She is on Lamictal 200 mg b.i.d., Keppra 500 mg b.i.d. for her seizure disorder, metoprolol succinate/Toprol 100 mg daily, Tylenol/acetaminophen 5/325 one tablet q.4 hours p.r.n. She is on K-Dur 20 mEq p.o. daily and she is on prednisone 5 mg daily. ASSESSMENT NOTES AND PLAN: This is a 66-year-old female, who has stage IV lymphoma by diagnosis, treated with systemic chemotherapy with Rituxan based chemotherapy, last year had 6 cycles of it and went into complete remission, was doing well through October 2016. In November and December 2016, started having increasing difficulty in swallowing with recurrent aspirations along with involvement with pain and numbness on the right side of her cheek along the maxillary area affecting her tongue and her right jaw bone and found to have recurrence of tumor in the [place]ck[place] for which she received radiation therapy. Based upon the MR findings, it was in a location that was difficult to biopsy, so she empirically got radiation and she has gone into complete remission since then. During this admission repeat CAT scan of the chest showed no evidence of pneumonia, infiltration by tumor, recurrent disease in the mediastinum or any changes in the parenchyma of the lungs at this point in time. Blood cultures have been negative and that is why the antibiotics more recently have been stopped. The patient has a history of seizure disorder for which she is on 2 medications, history of left pyelonephrosis, history of pansinusitis with bilateral osteo-mastoiditis and sinusitis affecting the maxillary sinus, ethmoid sinuses, and frontal sinuses for which she was treated exhaustive during the last admission. PLAN AND RECOMMENDATIONS: I spoke to the patient in great detail. Last PET/CT done less than a month and a half ago as an outpatient shows signification improvement intra-abdominally. The only evidence of persistent disease or recurrence was in the left neck in the form of small lymph nodes, avid on the PET/CT scan. MRI of the brain failed to show anymore disease in the [place] on the right side. My impression is that she is in remission from the point of view of the lymphoma though the pancytopenia of concern to me, as she has not had any treatment directed towards the illness. The patient also has to be checked up for hypogammaglobulinemia with this recurrent infections, so that she can be given prophylactically gammaglobulin to protect her immune system at this time. The patient is with stage IV disease, tend to become hypogammaglobulinemic as the months go by. This is going to be year two since her diagnosis. If her counts continue to progressively go down, we will plan on doing a repeat marrow. In the meantime, we will continue her current treatment plan. We will follow the patient clinically and make the appropriate recommendations. We will continue the prednisone for now. Britni Bynum MD MTDD
[2017-06-05] MEDS: Potassium Chloride 20 mEq ER Tab PO SCH (10:40)
[2017-06-05] MEDS: Enoxaparin 30 mg Syringe SC SCH (10:40)
[2017-06-05] MEDS: Metoprolol Succinate 100 mg XL Tab PO SCH (10:41)
--- NOTE | 2017-06-05 11:29 | PN ---
HISTORY OF PRESENT ILLNESS: This is a 66-year-old black female with history of seizure disorder, lymphoma with [employer] mets, status post treatment. The patient was admitted to hospital after change in mental status, confusion, and shoulder pain. The patient was hypernatremic on the admission and septic with a white count down to 2.0. White count now is 5.9 and hemoglobin is 10.5, which is normal. Sed rate is 31. Her most recent chemistry shows a sodium down to 137, which is normal and potassium 4.9, which is normal. Random glucose of 112 and elevated liver enzymes at 92 and 116. The patient is doing some physical therapy and occupational therapy. She is responding. She is becoming less confused and less disoriented. PHYSICAL EXAMINATION: Her physical examination is unchanged. CHEST: Clear to auscultation. HEART: S1 and S2. ASSESSMENT AND PLAN: Most likely transfer back to rehab to continue her subacute rehabilitation. Alex Butt MD
--- NOTE | 2017-06-05 11:49 | CP.PCM.PN ---
Subjective - Date & Time of Evaluation Date of Evaluation: 06/05/17 Time of Evaluation: 11:20 - Subjective Subjective: Comfortable, afebrile, not in distress. Objective - Vital Signs/Intake and Output Vital Signs (last 24 hours): Temp Pulse Resp BP Pulse Ox 97.3 F L 88 20 160/95 H 98 06/05/17 00:01 06/05/17 00:01 06/05/17 00:01 06/05/17 00:01 06/04/17 06:00 - Medications Medications: Current Medications Acetaminophen (Tylenol 325mg Tab) 650 mg PO Q6H PRN PRN Reason: Pain, moderate (4-7) Last Admin: 06/01/17 14:40 Dose: 650 mg Amlodipine Besylate (Norvasc) 10 mg PO DAILY [facility] Last Admin: 06/04/17 11:18 Dose: 10 mg Docusate Sodium (Colace) 100 mg PO TID [facility] Last Admin: 06/04/17 18:16 Dose: 100 mg Enoxaparin Sodium (Lovenox) 30 mg SC DAILY [facility] PRN Reason: Protocol Last Admin: 06/04/17 09:24 Dose: 30 mg Famotidine (Pepcid) 20 mg PO DAILY [facility] Last Admin: 06/04/17 09:24 Dose: 20 mg Potassium Chloride 20 meq/ (Dextrose/Sodium Chloride) 1,010 mls @ 80 mls/hr IV .[id number] [facility] Last Admin: 06/05/17 02:47 Dose: 80 mls/hr Lamotrigine (Lamictal) 200 mg PO BID [facility] Last Admin: 06/04/17 18:17 Dose: 200 mg Levetiracetam (Keppra) 500 mg PO BID [facility] Last Admin: 06/04/17 18:18 Dose: 500 mg Metoprolol Succinate (Toprol Xl) 100 mg PO DAILY [facility] Last Admin: 06/04/17 09:14 Dose: 100 mg Oxycodone/Acetaminophen (Percocet 5/325 Mg Tab) 1 tab PO Q4H PRN PRN Reason: Pain, moderate (4-7) Stop: 06/05/17 11:39 Last Admin: 06/02/17 17:32 Dose: 1 tab Potassium Chloride (K-Dur 20 Meq Er Tab) 20 meq PO BRK [facility] Last Admin: 06/04/17 09:24 Dose: 20 meq Prednisone (Prednisone Tab) 5 mg PO DAILY [facility] Last Admin: 06/04/17 11:22 Dose: 5 mg - Labs Labs: 06/05/17 04:00 06/05/17 04:00 PT 10.6 Seconds (9.9-11.8) 05/31/17 11:30 INR 0.98 (0.93-1.08) 05/31/17 11:30 APTT 24.1 Seconds (23.7-30.8) 05/31/17 11:30 - Constitutional Appears: Non-toxic, No Acute Distress - Head Exam Head Exam: NORMAL INSPECTION - ENT Exam ENT Exam: Mucous Membranes Moist - Neck Exam Neck Exam: absent: Lymphadenopathy, Meningismus - Respiratory Exam Respiratory Exam: Decreased Breath Sounds - Cardiovascular Exam Cardiovascular Exam: +S1, +S2 - GI/Abdominal Exam GI & Abdominal Exam: Soft. absent: Tenderness Assessment and Plan - Assessment and Plan (Free Text) Plan: Assessment systemic inflammatory response syndrome, no source of sepsis identified probable toxic-metabolic encephalopathy from hypernatremia, clinically improving history of acute arenas-sinusitis with associated bilateral otomastoiditis history of ventilator-dependent respiratory failure from healthcare-associated pneumonia history of chemotherapy-associated neutropenia lymphoma on chemo and radiotherapy asthma history of left pyelonephritis seizures cataracts asthma Plan blood and urine cx are negative; CT chest does not show infiltrates and CT head does not show acute pathology; PCT was elevated but the patient had acute renal failure - continue to monitor off antibiotics since she is at risk for nosocomial infections will continue to follow clinically
[2017-06-05] MEDS: POTASSIUM PHOSPHATE IV SCH (14:20)
[2017-06-05] MEDS: [UNRECOGNIZED DRUG - OTHER] IV SCH (14:20)
[2017-06-05] MEDS: DEXTROSE IV SCH (14:20)
[2017-06-05] MEDS ORDERED: Magnesium Sulfate 1 gm in D5W 1 GM/100 ML BAG IVPB ONE (14:30)
--- NOTE | 2017-06-05 14:37 | NM ---
PROCEDURE: Whole Body Bone Scan HISTORY: increasing pain left hip xrays negative COMPARISON: 06/02/2017. X-rays pelvis 06/01/2017 CT thorax TECHNIQUE: Following administration of 29.6 miCu of Tc MDP multiplanar whole body images were obtained. FINDINGS: Evidence for bony metastatic disease: None. Degenerative uptake: Both shoulders, sternoclavicular joints, hips and knees Physiologic uptake: Normal physiologic activity in the kidneys. Other findings: Increased uptake in the sternum indeterminate etiology. IMPRESSION: No evidence of bony metastatic disease. Degenerative changes primarily in the appendicular skeleton.
[2017-06-05] MEDS: Labetalol 5 mg/ml Inj 20ML IVP SCH (18:00)
--- NOTE | 2017-06-05 22:18 | PN ---
DATE: 06/05/2017 SUBJECTIVE: The patient is seen lying in bed. She is lethargic. She is having trouble swallowing. She denies any chest tightness. PHYSICAL EXAMINATION GENERAL: Thinly built, cachectic elderly lady, lying in bed. VITAL SIGNS: Blood pressure 137/92, heart rate 87, respiratory rate 18, temperature is 99.6. HEENT: Normocephalic and atraumatic. NECK: Supple. No JVD. LUNGS: Bilateral good entry. No rales. CARDIAC: S1 and S2. Regular rate and rhythm. No murmur, no rubs. ABDOMEN: Soft, nondistended, nontender. Bowel sounds present. EXTREMITIES: No lower extremity edema. INTAKE AND OUTPUT: 200/1200. LABORATORY DATA: WBC 5.9, hemoglobin 10.5, hematocrit 33, platelets 123. Sodium 137, potassium 3.9, chloride 101, CO2 of 30, BUN 10, creatinine of 0.7. glucose 112, calcium 8.8, phosphorous 1.7 yesterday, magnesium 1.5 yesterday, AST 92, ALT 116, albumin 2.8. CURRENT MEDICATIONS: Colace, potassium 20 mEq daily, Norvasc, Pepcid, prednisone, IV fluids at 80 mL, Toprol-XL, Tylenol. ASSESSMENT: 1. Resolved hypernatremia/dehydration. 2. Hypokalemia. 3. Hypophosphatemia. 4. Hypomagnesemia. 5. 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 6. Seizure disorder. 7. Hypertension. PLAN: 1. Change IV fluids to add potassium phosphate. 2. Check daily labs. 3. Replace magnesium. 4. Monitor intake and output. Alexa Camarillo MD cc:
--- NOTE | 2017-06-06 05:30 | PN ---
DATE: 06/05/2017 ROOM: 374. BED: 1. SUBJECTIVE: The patient is examined in bed. Family at the bedside. This is in time was in the afternoon around 03:40. The patient is comfortable. She is not any significant distress as per the patient's family and nurse says the patient has been unable to swallow. Today, she has been keeping her pills in her mouth. She is able to recognize me, definitely she is more lethargic than before. Per my discussion, the patient was deteriorating with altered mental status in the rehab that she was in and that is what prompted the transfer to the hospital. The patient was admitted with altered mental status, treated with IV antibiotics and was found to have an elevated sodium with abnormal electrolytes all of which have been corrected slowly along with elevated creatine kinases. PHYSICAL EXAMINATION: GENERAL: The patient is examined in bed. VITAL SIGNS: Reveal T-max of 98.4, pulse of 69, respirations 20, blood pressure is elevated 160/100 with a pulse ox of 94%. HEENT: Head is normocephalic and atraumatic. Conjunctivae are pale. Previously noted numbness on the right side of the face has significantly improved. Numbness on the right side of the tongue and the jaw on the right side have also significantly improved. Indicative of improvement in her underlying malignancy that is involving the Meckel's cave on the right side extending into the clivus. Examination of the oropharynx reveals no oropharyngeal lesions, the patient has retained secretions and retained food on the right side of the buccal mucosa. Tongue is coated. No ulcerations are noted. NECK: Supple. There is no adenopathy. CARDIOVASCULAR: Reveals the point of maximal impulse to be in the fifth intercostal space inside the midclavicular line, S1 and S2 are normal. No gallops or murmurs heard. ABDOMEN: Soft and nontender. Bowel sounds are present. No rebound, rigidity or guarding is noted. EXTREMITIES: Reveals no cyanosis, clubbing or edema. The patient is able to move her lower extremities, albeit, the patient is complaining of some pain in the left hip. X-rays done of left hip and pelvis are all have been negative. The patient had x-rays of the left shoulder as well, which was negative. She is unable to move her arm above the shoulder because of the torn rotator cuff on the right side, which is preventing her from raising her arm at all. The patient may benefit from adjustment physiotherapy depending upon inputs from the orthopedics. The patient was initially able to move her arm above the shoulder and now she is only able to flex at the elbow. She cannot raise the shoulder. NEUROVASCULAR: Reveals eye functions to be normal. No focal deficits are noted. RECTAL: Deferred. LYMPH NODES: Reveals no palpable adenopathy in the neck, axilla or groin. LABORATORY DATA: Today were reviewed. They reveal the following; white count 5.9, hemoglobin 10.5, hematocrit 32.7 and platelets count 123,000. Chemistry reveals potassium of 3.9, sodium 137, chloride 101, CO2 of 30, BUN 11, creatinine of 0.7, random sugars 112, magnesium is 1.8, AST is 92, ALT is 116, alkaline phosphatase 115, total creatinine kinase is 284 coming down gradually. Total protein is 5.1 and albumin 2.8. CURRENT MEDICATIONS: The patient's current medications were reviewed. She is on 650 Tylenol p.r.n. q.6 hours, Colace 100 t.i.d., Pepcid 20 mg p.o. daily, Zosyn has been stopped, she is on IV fluids with K-Dur 8 mEq an hour, she is on Lamictal 200 b.i.d., Keppra 500 b.i.d., metoprolol succinate 100 mg daily, Tylenol with acetaminophen 5/325 one tablet q.4 h p.r.n. She is on K-Dur 20 mEq p.o. daily and she is on prednisone 5 daily. ASSESSMENT NOTES AND PLAN: Discussed with the nurse regarding blood pressure. The patient is going to be started on IV medications as the patient cannot take oral medications. Spoke to Dr. Liu as well who is going to review the medications and make appropriate recommendations for intervenous medications to control her blood pressure. She is currently on labetalol 20 mg IV t.i.d. in addition to the other medications. Routine post exam instructions have been given to the patient, spoken to the nurse, set up for speech pathology to see her again for swallowing studies and to make appropriate recommendations at that time to the family. Also we will discontinue the prednisone and put her on IV Solu-Medrol. Also we checked base with Dr. Butt by getting neurology on board to comment on the fact that she was improving transiently and now that she has a setback, could it be because of lymphoma involving the meninges, though the last MRI failed to show anything like that, just check with Dr. Butt regard this. Routine post exam instructions have been given to the patient and family. Britni Bynum MD cc:
[2017-06-06] MEDS: POTASSIUM PHOSPHATE IV SCH ×2 (05:43→21:11)
[2017-06-06] MEDS: [UNRECOGNIZED DRUG - OTHER] IV SCH ×2 (05:43→21:11)
[2017-06-06] MEDS: DEXTROSE IV SCH ×2 (05:43→21:11)
[2017-06-06] MEDS: MethylPREDNISolone 40 mg Vial IVP SCH ×3 (05:48→22:53)
[2017-06-06] MEDS ORDERED: Labetalol 5 mg/ml Inj 20ML IV STA (06:06)
[2017-06-06 06:47] LABS: BASO # 0.04 K/mm3 (0.0-2.0); BASO % 0.7 % (0.0-3.0); EOS % 0.7 % (1.5-5.0); GRAN # 1.64 (1.4-6.5); GRAN % 30.6 % (50.0-68.0); HEMOGLOBIN 9.9 gm/dL (12.0-16.0); LYMPH # 3.2 (1.2-3.4); LYMPH % 58.7 % (22.0-35.0); MEAN CELL VOLUME 90.5 fL (80.0-105.0); MEAN CORPUSCULAR HEMOGLOBIN 28.5 pg (25.0-35.0); MEAN CORPUSCULAR HGB CONC 31.5 g/dl (31.0-37.0); MEAN PLATELET VOLUME 9.6 fl (7.0-11.0); MONO # 0.5 (0.1-0.6); MONO % 9.3 % (1.0-6.0); PLATELET COUNT 147 10^3/uL (120.0-450.0); RBC 3.47 10^6/uL (3.5-6.1); RED CELL DISTRIBUTION WIDTH 13.7 % (11.5-14.5); WHITE BLOOD COUNT 5.4 10^3/ul (4.5-11.0)
[2017-06-06 07:27] LABS: ALB/GLOB RATIO 1.2 (1.1-1.8); ALBUMIN 2.8 g/dL (3.0-4.8); ALT/SGPT 97 U/L (7-56); AST/SGOT 61 U/L (15-39); BLOOD UREA NITROGEN 13 mg/dL (7-21); CALCIUM 8.7 mg/dL (8.4-10.5); GFR AFRICAN-AMERICAN > 60; GFR NON-AFRICAN AMERICAN > 60
--- NOTE | 2017-06-06 08:08 | CP.PCM.PN ---
Subjective - Date & Time of Evaluation Date of Evaluation: 06/06/17 Time of Evaluation: 08:05 - Subjective Subjective: PGY2 for Dr. Bynum Sinus tachycardia at 124 requiring labetaolol ivx1 Denies CP, palpitation. Asx Objective - Vital Signs/Intake and Output Vital Signs (last 24 hours): Temp Pulse Resp BP Pulse Ox 98.3 F 125 H 18 164/98 H 99 06/06/17 00:01 06/06/17 06:24 06/06/17 00:01 06/06/17 06:24 06/06/17 00:01 Intake and Output: 06/06/17 06/06/17 06:59 18:59 Intake Total 1165 0 Output Total 100 150 Balance 1065 -150 - Medications Medications: Current Medications Acetaminophen (Tylenol 325mg Tab) 650 mg PO Q6H PRN PRN Reason: Pain, moderate (4-7) Last Admin: 06/01/17 14:40 Dose: 650 mg Amlodipine Besylate (Norvasc) 10 mg PO DAILY [facility] Last Admin: 06/05/17 10:41 Dose: 10 mg Docusate Sodium (Colace) 100 mg PO TID [facility] Last Admin: 06/05/17 18:26 Dose: Not Given Enoxaparin Sodium (Lovenox) 30 mg SC DAILY [facility] PRN Reason: Protocol Last Admin: 06/05/17 10:40 Dose: 30 mg Famotidine (Pepcid) 20 mg PO DAILY [facility] Last Admin: 06/05/17 10:41 Dose: 20 mg Potassium Phosphate 20 mmole/ (Dextrose/Sodium Chloride) 1,006.6667 mls @ 80 mls/hr IV .[id number] [facility] Last Admin: 06/06/17 05:43 Dose: 80 mls/hr Labetalol HCl (Trandate) 20 mg IVP TID [facility] Last Admin: 06/05/17 18:00 Dose: 20 mg Lamotrigine (Lamictal) 200 mg PO BID [facility] Last Admin: 06/05/17 18:27 Dose: 200 mg Levetiracetam (Keppra) 500 mg PO BID [facility] Last Admin: 06/05/17 18:27 Dose: 500 mg Methylprednisolone (Solu-Medrol) 20 mg IVP Q8 [facility] Last Admin: 06/06/17 05:48 Dose: 20 mg Metoprolol Succinate (Toprol Xl) 100 mg PO DAILY [facility] Last Admin: 06/05/17 10:41 Dose: 100 mg Potassium Chloride (K-Dur 20 Meq Er Tab) 20 meq PO BRK [facility] Last Admin: 06/05/17 10:40 Dose: 20 meq Prednisone (Prednisone Tab) 5 mg PO DAILY [facility] Last Admin: 06/05/17 10:41 Dose: 5 mg - Labs Labs: 06/06/17 06:00 06/06/17 06:00 PT 10.6 Seconds (9.9-11.8) 05/31/17 11:30 INR 0.98 (0.93-1.08) 05/31/17 11:30 APTT 24.1 Seconds (23.7-30.8) 05/31/17 11:30 - Constitutional Appears: Cachectic, Chronically Ill - Eye Exam Eye Exam: EOMI, Normal appearance, PERRL. absent: Scleral icterus - ENT Exam ENT Exam: Mucous Membranes Moist - Respiratory Exam Respiratory Exam: Clear to Ausculation Bilateral. absent: Rales, Rhonchi, Wheezes - Cardiovascular Exam Cardiovascular Exam: Tachycardia, REGULAR RHYTHM, +S1, +S2 - GI/Abdominal Exam GI & Abdominal Exam: Soft, Normal Bowel Sounds. absent: Guarding, Rigid, Tenderness - Extremities Exam Extremities Exam: Normal Capillary Refill. absent: Calf Tenderness, Pedal Edema - Neurological Exam Additional comments: Pt was sleeping. Easy awakening. AAOx2 - Skin Skin Exam: Dry, Warm Assessment and Plan - Assessment and Plan (Free Text) Plan: 66 AA F, from [facility] subacute rehab, had fever of 102.5, admitted for AMS, sepsis, dehydration. 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 At baseline, pt is B&B incontinent. Pt has new onset sinus tachycardia on tele monitor requiring labetalol x1. Sinus tachycardia - EKG - cardiac enzyme x 1 - card consult - likely chronic problem. No further workup per Dr. Bynum. Continue to observe on remote tele and vs measure Pancytopenia - Prednisone 5 daily - Leucopenia = sepsis vs lymphoma - anemia = stable at 10 SIRS. Doubt Sepsis - Afebile, WBC 2.5, lactate 1.2, procal 1.03 (high, in the setting of BATSHEVA) - CT-chest w/o contrast: unremarkable - Observe off ANX. S/p Zosyn BATSHEVA, prerenal azotemia Hypernatremia, dehydation Mentation improves with corrected hypernatremia and IVF - Monitor Urine Output - D5-halfNS @ 80 - Monitor electrolyte closely - On K-dur Stage IV small cell lymphocytic lymphoma, metastatic to brain Disphagia Seizure Hx - Keppra 500 BID - Bone Scan (06/05) - No evidence of bony mets. Degenerative chamges in appendicular skeleton HTN - not on meds Prophylaxis - SCD - Pepcid 20 daily S/R/D/w Dr. Bynum
[2017-06-06 09:01] LABS: TROPONIN I < 0.01 ng/mL
[2017-06-06] MEDS ORDERED: Metoprolol 1 mg/ml Inj IVP ONE (09:13)
[2017-06-06] MEDS: Enoxaparin 30 mg Syringe SC SCH (10:00)
[2017-06-06] MEDS ORDERED: Propranolol 1 mg/mL Inj IV ONE (12:10)
[2017-06-06] MEDS ORDERED: Propranolol 1 mg/mL Inj IV PRN (12:12)
--- NOTE | 2017-06-06 12:12 | CP.PCM.CON ---
<Elissa Montes - Last Filed: 06/06/17 17:11> History of Present Illness - History of Present Illness History of Present Illness: PGY-[address] Schwartz. Reason for consult: r/o brain mets, worsening mental status. Patient is a 66 y/o with pmh of htn, COPD, stage iv cell lymphoma w/o mets to the right meckel's cave pressing on the trigeminal nerve and lateral alma s/p chemo, h/o seizure disorders, h/o right rotator cuff tear whom [facility], and was found to have SIRS with unclear etiology. Patient has been hospitalized since the 05/31 of this month, underwent multiple testing including CT head w/o contrast, CT chest and bone scan with no evidence of metastasis. Patient had episodes of hypernatremia, with prerenal azootemia on admission, which has since corrected. Neurology is being consulted due to worsening in mental status, despite negative test results. As per patient's nurse, patient has not been swallowing her meds or the puree diet. Patient had repeat swallow eval yesterday and puree nectar thick was recommended. Patient is currently very confused, unable to answer questions, maybe due to lack of dentures. Patient able to follow simple commands. PMH: As stated above PSH: unable to obtain Social: unable to obtain due to mentation. Review of Systems - Review of Systems Systems not reviewed;Unavailable: Altered Mental Status Past Patient History - Infectious Disease Hx of Infectious Diseases: None - Past Medical History & Family History Past Medical History?: Yes - Past Social History Smoking Status: Never Smoked Home Situation {Lives}: Care Home - CARDIAC Hx Cardiac Disorders: Yes - PULMONARY Hx Chronic Obstructive Pulmonary Disease (COPD): Yes - NEUROLOGICAL Hx Neurological Disorder: Yes (BRAIN AND NECK MASS-BRAIN CA WITH RADIATION) HX Cerebrovascular Accident: No Hx Dizziness: Yes (SYNCOPE) - HEENT Hx HEENT Problems: Yes Hx Cataracts: Yes (bilateral) - RENAL Hx Pyelonephritis: Yes Hx Renal Failure: No - ENDOCRINE/METABOLIC Hx Diabetes Mellitus Type 1: No Hx Diabetes Mellitus Type 2: No Hx Hypothyroidism: No - HEMATOLOGICAL/ONCOLOGICAL Hx Cancer: Yes (lynmphoma with brain mets) - INTEGUMENTARY Hx Dermatological Problems: No - MUSCULOSKELETAL/RHEUMATOLOGICAL Hx Falls: Yes - GASTROINTESTINAL Hx Gastroesophageal Reflux: Yes - GENITOURINARY/GYNECOLOGICAL Hx Genitourinary Disorders: Yes (HYSTERECTOMY) Hx Incontinence: Yes - PSYCHIATRIC Hx Psychophysiologic Disorder: Yes Hx Anxiety: Yes Hx Substance Use: No - SURGICAL HISTORY Hx Hysterectomy: Yes Other/Comment: Port in R chest - ANESTHESIA Hx Anesthesia: Yes Hx Anesthesia Reactions: No Hx Malignant Hyperthermia: No Meds Home Medications: Home Medication List Medication Instructions Recorded Confirmed Type Metoprolol Succinate [Toprol XL] 100 mg PO DAILY tab 06/05/17 Rx predniSONE [predniSONE Tab] 5 mg PO DAILY tab 06/05/17 Rx Allergies/Adverse Reactions: Allergies Allergy/AdvReac Type Severity Reaction Status Date / Time No Known Allergies Allergy Verified 05/31/17 17:59 - Medications Medications: Current Medications Acetaminophen (Tylenol 325mg Tab) 650 mg PO Q6H PRN PRN Reason: Pain, moderate (4-7) Last Admin: 06/01/17 14:40 Dose: 650 mg Amlodipine Besylate (Norvasc) 10 mg PO DAILY [facility] Last Admin: 06/05/17 10:41 Dose: 10 mg Docusate Sodium (Colace) 100 mg PO TID [facility] Last Admin: 06/05/17 18:26 Dose: Not Given Enoxaparin Sodium (Lovenox) 30 mg SC DAILY [facility] PRN Reason: Protocol Last Admin: 06/05/17 10:40 Dose: 30 mg Famotidine (Pepcid) 20 mg PO DAILY [facility] Last Admin: 06/05/17 10:41 Dose: 20 mg Potassium Phosphate 20 mmole/ (Dextrose/Sodium Chloride) 1,006.6667 mls @ 80 mls/hr IV .[id number] [facility] Last Admin: 06/06/17 05:43 Dose: 80 mls/hr Labetalol HCl (Trandate) 20 mg IVP TID [facility] Last Admin: 06/05/17 18:00 Dose: 20 mg Lamotrigine (Lamictal) 200 mg PO BID [facility] Last Admin: 06/05/17 18:27 Dose: 200 mg Levetiracetam (Keppra) 500 mg PO BID [facility] Last Admin: 06/05/17 18:27 Dose: 500 mg Methylprednisolone (Solu-Medrol) 20 mg IVP Q8 [facility] Last Admin: 06/06/17 05:48 Dose: 20 mg Potassium Chloride (K-Dur 20 Meq Er Tab) 20 meq PO BRK [facility] Last Admin: 06/05/17 10:40 Dose: 20 meq Prednisone (Prednisone Tab) 5 mg PO DAILY [facility] Last Admin: 06/05/17 10:41 Dose: 5 mg Propranolol HCl (Inderal) 20 mg PO TID [facility] Physical Exam - Constitutional Appears: No Acute Distress, Older Than Stated Age, Confused, Cachectic, Chronically Ill - Head Exam Head Exam: ATRAUMATIC, NORMAL INSPECTION, NORMOCEPHALIC - Eye Exam Eye Exam: EOMI, PERRL, Scleral icterus Pupil Exam: PERRL Additional comments: Reactive to light. - ENT Exam ENT Exam: Mucous Membranes Moist Additional comments: + Drools - Neck Exam Neck exam: Positive for: Normal Inspection. Negative for: Lymphadenopathy, Meningismus - Respiratory Exam Respiratory Exam: Decreased Breath Sounds (at the bases. ). absent: Rhonchi, Wheezes, Respiratory Distress, Stridor - Cardiovascular Exam Cardiovascular Exam: Tachycardia, +S1, +S2 - GI/Abdominal Exam GI & Abdominal Exam: Normal Bowel Sounds, Soft. absent: Distended - Extremities Exam Extremities exam: Negative for: pedal edema - Neurological Exam Additional comments: Patient appears very drowsy, oriented to person but not place or time. Patient in position, very protracted, patient screams in agony when I extends her extremities, b/l lower and upper. Eyes were open spontaneously. Pupils reactive to light. Patient follows simple commands transiently, 2/5 upper extremities motor strength b/l. Reflexes 2+ throughout, Negative babinski No clonus. + lower extremities resting tremors. No spasticity. - Psychiatric Exam Psychiatric exam: Anxious - Skin Skin Exam: Diaphoretic, Warm Results - Vital Signs Recent Vital Signs: Last Vital Signs Temp 98.9 F 06/06/17 08:38 Pulse 130 H 06/06/17 09:35 Resp 20 06/06/17 08:38 BP 130/80 06/06/17 09:35 Pulse Ox 99 06/06/17 08:38 - Labs Result Diagrams: 06/06/17 06:00 06/06/17 06:00 Labs: Laboratory Results - last 24 hr 06/06/17 06/06/17 06/06/17 06:00 06:00 06:00 WBC 5.4 RBC 3.47 L Hgb 9.9 L Hct 31.4 L MCV 90.5 MCH 28.5 MCHC 31.5 RDW 13.7 Plt Count 147 MPV 9.6 Gran % 30.6 L Lymph % (Auto) 58.7 H [place] % (Auto) 9.3 H Eos % (Auto) 0.7 L Baso % (Auto) 0.7 Gran # 1.64 Lymph # 3.2 [place] # 0.5 Eos # 0.0 Baso # 0.04 Sodium 137 Potassium 4.1 Chloride 103 Carbon Dioxide 26 Anion Gap 12 BUN 13 Creatinine 0.7 Est GFR ( Amer) > 60 Est GFR (Non-Af Amer) > 60 Random Glucose 129 H Calcium 8.7 Total Bilirubin 0.8 AST 61 H ALT 97 H Alkaline Phosphatase 118 Lactate Dehydrogenase 1075 H Total Creatine Kinase 212 Troponin I < 0.01 D Total Protein 5.1 L Albumin 2.8 L Globulin 2.3 Albumin/Globulin Ratio 1.2 Assessment & Plan - Assessment and Plan (Free Text) Assessment: Patient is a 66 y/o with pmh of htn, COPD, stage iv cell lymphoma w/o mets to the right meckel's cave pressing on the trigeminal nerve and lateral alma s/p chemo, h/o seizure disorders, h/o right rotator cuff tear whom presented with SIRS, along with multi organ dysfunction, currently with worsening mental status. Upon reviewing the medical records, patient had MRI back on 01/16/17 which revealed the enhancing mass like right trigeminal nerve extending from surface of alma into meckel's cave, patient also had MRI of the thoracic and cervical spine on 02/03 with no evidence of met to cords and subarachnoid. Patient had a repeat MRI of brain on 05/12/17 with no evidence of mets, recent CT head and chest negative for mets. CT abdo and pelvis with stable calcified renal cyst. Patient also had PET scan 04/05 with only right subclavian avid lymph nodes. Patient is currently being followed by multiple service. Impression: worsening of the deconditioned state Plan: - Will defer LP at this time giving that patient already has cancer. - will obtain MRI with/w/o contrast, c spine and thoracic MRI. - PT/OT eval - Continue to monitor and treat electrolytes. - Keep sbp between 130-140 - Avoid sedatives - Thank you for consulting Dr Schwartz. Patient seen, examined, case discussed with Dr Schwartz. - Date & Time Date: 06/06/17 Time: 12:05 <Petar Schwartz - Last Filed: 06/06/17 18:05> Meds - Medications Medications: Current Medications Acetaminophen (Tylenol 325mg Tab) 650 mg PO Q6H PRN PRN Reason: Pain, moderate (4-7) Last Admin: 06/01/17 14:40 Dose: 650 mg Amlodipine Besylate (Norvasc) 10 mg PO DAILY [facility] Last Admin: 06/05/17 10:41 Dose: 10 mg Docusate Sodium (Colace) 100 mg PO TID [facility] Last Admin: 06/06/17 14:36 Dose: Not Given Enoxaparin Sodium (Lovenox) 30 mg SC DAILY [facility] PRN Reason: Protocol Last Admin: 06/06/17 10:00 Dose: 30 mg Famotidine (Pepcid) 20 mg PO DAILY [facility] Last Admin: 06/06/17 10:00 Dose: Not Given Hydralazine HCl (Apresoline) 10 mg IVP Q6 PRN PRN Reason: for SBP>170 and Diastolic >100 Potassium Phosphate 20 mmole/ (Dextrose/Sodium Chloride) 1,006.6667 mls @ 80 mls/hr IV .[id number] [facility] Last Admin: 06/06/17 05:43 Dose: 80 mls/hr Fluconazole 100 mg/ (Miscellaneous) 50 mls @ 100 mls/hr IVPB DAILY [facility] PRN Reason: Protocol Stop: 06/08/17 14:00 Labetalol HCl (Trandate) 20 mg IVP TID [facility] Last Admin: 06/06/17 16:06 Dose: Not Given Lamotrigine (Lamictal) 200 mg PO BID [facility] Last Admin: 06/06/17 12:29 Dose: Not Given Levetiracetam (Keppra) 500 mg PO BID [facility] Last Admin: 06/06/17 12:29 Dose: Not Given Methylprednisolone (Solu-Medrol) 20 mg IVP Q8 [facility] Last Admin: 06/06/17 14:00 Dose: 20 mg Metoprolol Tartrate (Lopressor) 5 mg IVP Q6H [facility] Last Admin: 06/06/17 13:00 Dose: 5 mg Morphine Sulfate (Morphine) 2 mg IVP Q3 PRN PRN Reason: Pain, severe (8-10) Potassium Chloride (K-Dur 20 Meq Er Tab) 20 meq PO BRK [facility] Last Admin: 06/06/17 12:29 Dose: Not Given Prednisone (Prednisone Tab) 5 mg PO DAILY [facility] Last Admin: 06/05/17 10:41 Dose: 5 mg Results - Vital Signs Recent Vital Signs: Last Vital Signs Temp 98.9 F 06/06/17 16:00 Pulse 100 H 06/06/17 16:06 Resp 20 06/06/17 16:00 BP 118/90 06/06/17 16:06 Pulse Ox 98 06/06/17 16:00 - Labs Result Diagrams: 06/06/17 06:00 06/06/17 06:00 Labs: Laboratory Results - last 24 hr 06/06/17 06/06/17 06/06/17 06:00 06:00 06:00 WBC 5.4 RBC 3.47 L Hgb 9.9 L Hct 31.4 L MCV 90.5 MCH 28.5 MCHC 31.5 RDW 13.7 Plt Count 147 MPV 9.6 Gran % 30.6 L Lymph % (Auto) 58.7 H [place] % (Auto) 9.3 H Eos % (Auto) 0.7 L Baso % (Auto) 0.7 Gran # 1.64 Lymph # 3.2 [place] # 0.5 Eos # 0.0 Baso # 0.04 Sodium 137 Potassium 4.1 Chloride 103 Carbon Dioxide 26 Anion Gap 12 BUN 13 Creatinine 0.7 Est GFR ( Amer) > 60 Est GFR (Non-Af Amer) > 60 Random Glucose 129 H Calcium 8.7 Total Bilirubin 0.8 AST 61 H ALT 97 H Alkaline Phosphatase 118 Ammonia Lactate Dehydrogenase 1075 H Total Creatine Kinase 212 Troponin I < 0.01 D Total Protein 5.1 L Albumin 2.8 L Globulin 2.3 Albumin/Globulin Ratio 1.2 06/06/17 13:32 WBC RBC Hgb Hct MCV MCH MCHC RDW Plt Count MPV Gran % Lymph % (Auto) [place] % (Auto) Eos % (Auto) Baso % (Auto) Gran # Lymph # [place] # Eos # Baso # Sodium Potassium Chloride Carbon Dioxide Anion Gap BUN Creatinine Est GFR ( Amer) Est GFR (Non-Af Amer) Random Glucose Calcium Total Bilirubin AST ALT Alkaline Phosphatase Ammonia < 9 L Lactate Dehydrogenase Total Creatine Kinase Troponin I Total Protein Albumin Globulin Albumin/Globulin Ratio Attending/Attestation - Attestation I have personally seen and examined this patient.: Yes I have fully participated in the care of the patient.: Yes I have reviewed all pertinent clinical information: Yes
[2017-06-06] MEDS: Potassium Chloride 20 mEq ER Tab PO SCH (12:29)
[2017-06-06] MEDS: Labetalol 5 mg/ml Inj 20ML IVP SCH ×3 (12:30→18:28)
[2017-06-06] MEDS ORDERED: Metoprolol 1 mg/ml Inj IVP SCH ×2 (13:00→14:00)
[2017-06-06] MEDS: Fluconazole IV 200mg/100 ml NS 100 MG in Premixed IV 1 EA IVPB SCH (14:00)
[2017-06-06] MEDS ORDERED: Morphine 2 mg/ml ISec IVP PRN (15:48)
--- NOTE | 2017-06-06 16:09 | PN ---
DATE: 06/06/2017 SUBJECTIVE: The patient has been seen for multiple joint pains. Bone scan done shows osteoarthritis of both shoulders, hips and knees, but she lies in bed in a position, but does not express pain when I palpate the shoulders or the hips or knees. She lies in the position, I touched it, nothing acutely is bothering her with pains. We are hesitant to inject her with Depo-Medrol or Marcaine, but palliative care and physical therapy try to get her up out of bed and get her knees little a straighter and mobilized. The x-rays of the shoulder does show chronic rotator cuff tear which would only be helped temporarily with the injection, but might introduce infection. So I will just keep treating her conservatively without the cortisone shot right now until she participate in therapy a little more. Overall, diagnosis is multiple joint osteoarthritis and multiple joint contractions of the hips and knees and bilateral shoulder rotator cuff tear chronic. Faraz Cortez DO
--- NOTE | 2017-06-06 17:24 | PN ---
DATE: 06/06/2017 SUBJECTIVE: The patient seen in bed in no acute distress and was seen earlier this morning in room-374, Bed-1. PHYSICAL EXAMINATION VITAL SIGNS: Temperature is 98, blood pressure is 130/70, respiratory rate of 16. HEENT: Unremarkable. NECK: Supple. LUNGS: Decreased breath sounds. HEART: Normal S1 and S2. ABDOMEN: Soft and nontender. LABORATORY DATA: Reveals a white count of 5.4, hemoglobin of 9, platelets of 147 and the coagulation is noted. Chemistries revealed the BUN of 13, creatinine of 0.7. Urinalysis is noted. Blood cultures are negative. Urine cultures are negative. ASSESSMENT AND PLAN: A 66-year-old with the systemic inflammatory response syndrome in the patient with acute pansinusitis and bilateral otomastoiditis and in the patient with status post chemotherapy leukopenia, currently off of antibiotics, afebrile. The patient is at risk for developing nosocomial infection. Reviewed the orders, confirms the patient to be off of antibiotics. Jose Suh MD
--- NOTE | 2017-06-06 19:12 | CARD ---
APPROVED REPORT EKG Measurement Heart [id number] <Conclusion> Sinus tachycardia Voltage criteria for left ventricular hypertrophy Abnormal ECG
--- NOTE | 2017-06-06 19:49 | PN ---
SUBJECTIVE: The patient is currently seen on 3R. Family is in the room. The patient is lying supine in bed, receiving IV fluid hydration. She appears to be in no acute distress. MEDICATIONS: Medication list reviewed. The patient is currently on Apresoline, Colace, potassium tablets, Keppra, Lamictal, Lopressor, Lovenox, Norvasc, Pepcid, IV fluid with potassium phosphate, prednisone is on hold. The patient is receiving Solu-Medrol, Trandate, and Tylenol. OBJECTIVE INTAKE/OUTPUT: Intake 1165, output 100 charted. VITAL SIGNS: Blood pressure 130/65, pulse ranging from 93 to 130, respiratory rate is 20, oxygen saturation is 99%. HEENT: Normocephalic, atraumatic. Conjunctivae are pale. Sclerae are nonicteric. NECK: Supple. No neck vein distention. CHEST: Clear to auscultation and percussion. No rales or rhonchi. No wheezing. CARDIAC: S1 and S2 are rapid. No audible murmurs, rubs, or gallops noted. ABDOMEN: Soft. Nondistended. Bowel sounds are normal. No rebound. No guarding. No masses. EXTREMITIES: Show no lower extremity cyanosis, clubbing, or edema. LABORATORY DATA AND IMAGING: CBC, white blood cell count up to 5.4, hemoglobin 9.9 stable with a platelet count of 147,000. Chemistries showed normal electrolytes. BUN 13 with a creatinine of 0.7. Glucose is 129, calcium is 8.7. No repeat magnesium. Phosphorus levels were done today. Mild elevation of her liver enzymes. Ammonia level was less than 9. LDH is 1075. CPK level is back to normal at 212. Albumin is 2.8. Microbiology, all cultures are negative. ASSESSMENT: 1. Acute renal failure, resolved. The patient had prerenal azotemia secondary to volume depletion, hemoconcentration, and dehydration. This resolved with IV hypotonic food administration. 2. Hypernatremia, resolved. Sodium is dropped from high of 154 now down to 137. 3. Mild hypomagnesemia, mild hypophosphatemia. The patient is receiving K-Phos and her IV fluids. The patient received a mag rider yesterday. 4. History of pancytopenia. White blood cell count is now normal. Platelet count is normal. The patient remains mildly anemic. 5. 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 The patient remains seizure free on Lamictal and Keppra. 6. History of hypertension. Blood pressure control is acceptable. 7. No evidence for sepsis. All cultures are negative and antibiotics were discontinued. PLAN: 1. We will check a phosphorus and magnesium level tomorrow with her chemistries. 2. Once her oral intake becomes adequate, the patient may have all of her IV fluids discontinued. 3. Continue to monitor accurate I's and O's. 4. Continue present medication to prevent seizures. Jerry Chatman MD MTDD
--- NOTE | 2017-06-06 22:27 | PN ---
DATE: 06/06/2017 SUBJECTIVE: The patient is a 66-year-old black female with seizure disorder, hypertension, tachyarrhythmia, NUCLE[employer] FUELS [employer]INEER lymphoma with NUCLEAR FUELS [employer]INEER metastasis status post chemoradiation, the patient is doing well, was admitted to the hospital with sepsis syndrome and hypernatremia, dehydration, change in mental status. The patient has a slowly improving mental status. She is more awake and alert and more conversant, is still not participating well with physical therapy. PHYSICAL EXAMINATION: VITAL SIGNS: Stable. Blood pressure 118/90 and heart rate is down to 100. LABORATORY DATA: Better she has improved white count with stable hemoglobin and also had a sodium which had reverted to normal down to level of 137, potassium 4.1. Her sugar is stable at 129. Her ammonia level was less than 9. Her liver enzymes are mildly elevated. LDH was 1075. The patient was seen in consultation by neurology who felt that it was toxic metabolic encephalopathy and has slowly improving. Vital signs are stable. Plan is to continue physical therapy, occupational therapy, hydration and IV antibiotics. The patient's family is attempting to get power of litigation attorney and possible fpc placement in near future, is unable to take care of the patient at this point. Alex Butt MD
[2017-06-06] MEDS: Metoprolol 1 mg/ml Inj IVP SCH (23:44)
--- NOTE | 2017-06-07 04:57 | CON ---
DATE: 06/06/2017 CONSULT SERVICE: Cardiology. REASON FOR THE CONSULTATION: Persistently sinus tachycardia, cardiac evaluation. BRIEF CLINICAL HISTORY: This is a 66-year-old female with past medical history significant for lymphocytic lymphoma, small cell metastatic to the brain; history of seizure disorder; chronic dysphagia; failure to thrive; recently admitted with altered mental status, found to have abnormal electrolytes, elevated BUN and creatinine, anemia, and sinus tachycardia. The patient denies any chest pain, denies any shortness of breath, denies any palpitation. 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 PAST SURGICAL HISTORY: None. FAMILY HISTORY: Denies any history of cancer. SOCIAL HISTORY: Denies any history of alcohol abuse. ALLERGIES: NO KNOWN DRUG ALLERGIES. CURRENT MEDICATIONS: At home, the patient was taking amlodipine, potassium, lisinopril, levothyroxine, prednisone, and metoprolol succinate 100 mg p.o. daily. RECENT CARDIAC WORKUP: The patient had echocardiography done on 10/26/2016 at [facility] that shows ejection fraction within normal 65%-70%, pericardia appears normal, no pericardial effusion noted, whereas mitral valve normal. No mitral stenosis. No mitral regurgitation. No tricuspid regurgitation noted. RVSP was 16 reported, dated 10/26/2016. REVIEW OF SYSTEMS: As per HPI. PHYSICAL EXAMINATION: As follows. VITAL SIGNS: Temperature afebrile. Heart rate 120, blood pressure 130/80. HEENT: PERRLA, EOM intact. NECK: Supple. No carotid bruit. No thyromegaly. CHEST: Clear to auscultation. HEART: S1 and S2, regular. ABDOMEN: Soft. EXTREMITIES: Clubbing and cyanosis negative. LABORATORY DATA: Blood workup as follows. WBC 5.4, hemoglobin 9.9, hematocrit 31.4, platelet count 147. Chemistry shows sodium 132, potassium 4.1, chloride 103, carbon dioxide 26, anion gap of 12, BUN 13, creatinine 0.7. Troponin 0.01. Total protein 5.1, albumin 2.8, albumin globulin ratio 1.2. IMPRESSION: Anemia, sinus tachycardia, hypertension, lymphocytic lymphoma with metastasis to the brain, dysphagia, protein-calorie malnutrition, moderate present since admission, was mild. No evidence of acute DC. EKG shows sinus tachycardia. The patient was on metoprolol 100 at home, was restarted. The patient has tachycardic *------*. We will send TSH to rule out any hyperthyroidism. Discontinue metoprolol. We will start 20 mg of propranolol and give the p.r.n. hydralazine. We will go up increasing as the blood pressure is tolerated, as the heart is tolerated to long-acting propranolol. We will follow with you. Thank you *------* the opportunity in taking care of the patient. Waylon Perez MD
[2017-06-07] MEDS: MethylPREDNISolone 40 mg Vial IVP SCH (05:58)
[2017-06-07] MEDS: Metoprolol 1 mg/ml Inj IVP SCH (06:00)
[2017-06-07 06:53] LABS: BASO # 0.08 K/mm3 (0.0-2.0); BASO % 1.6 % (0.0-3.0); EOS % 0.2 % (1.5-5.0); GRAN # 2.16 (1.4-6.5); GRAN % 42.6 % (50.0-68.0); HEMOGLOBIN 9.9 gm/dL (12.0-16.0); LYMPH # 2.6 (1.2-3.4); LYMPH % 51.5 % (22.0-35.0); MEAN CELL VOLUME 90.5 fL (80.0-105.0); MEAN CORPUSCULAR HEMOGLOBIN 29.5 pg (25.0-35.0); MEAN CORPUSCULAR HGB CONC 32.6 g/dl (31.0-37.0); MEAN PLATELET VOLUME 9.4 fl (7.0-11.0); MONO # 0.2 (0.1-0.6); MONO % 4.1 % (1.0-6.0); PLATELET COUNT 191 10^3/uL (120.0-450.0); RBC 3.36 10^6/uL (3.5-6.1); RED CELL DISTRIBUTION WIDTH 13.7 % (11.5-14.5); WHITE BLOOD COUNT 5.1 10^3/ul (4.5-11.0)
[2017-06-07 07:13] LABS: ALB/GLOB RATIO 1.2 (1.1-1.8); ALBUMIN 2.9 g/dL (3.0-4.8); ALT/SGPT 88 U/L (7-56); AST/SGOT 56 U/L (15-39); BLOOD UREA NITROGEN 13 mg/dL (7-21); CALCIUM 8.9 mg/dL (8.4-10.5); GFR AFRICAN-AMERICAN > 60; GFR NON-AFRICAN AMERICAN > 60; MAGNESIUM 1.8 mg/dL (1.7-2.2)
--- NOTE | 2017-06-07 07:44 | CP.PCM.PN ---
Subjective - Date & Time of Evaluation Date of Evaluation: 06/07/17 Time of Evaluation: 07:00 - Subjective Subjective: PGY-[address] Bynum Pt remains lethargic. No change as compared to yesterday per RN Objective - Vital Signs/Intake and Output Vital Signs (last 24 hours): Temp Pulse Resp BP Pulse Ox 98.9 F 94 H 20 163/96 H 98 06/06/17 16:00 06/07/17 06:00 06/06/17 16:00 06/07/17 06:00 06/06/17 16:00 Intake and Output: 06/07/17 06/07/17 06:59 18:59 Intake Total 120 Balance 120 - Medications Medications: Current Medications Acetaminophen (Tylenol 325mg Tab) 650 mg PO Q6H PRN PRN Reason: Pain, moderate (4-7) Last Admin: 06/01/17 14:40 Dose: 650 mg Amlodipine Besylate (Norvasc) 10 mg PO DAILY [facility] Last Admin: 06/05/17 10:41 Dose: 10 mg Docusate Sodium (Colace) 100 mg PO TID [facility] Last Admin: 06/06/17 18:13 Dose: Not Given Enoxaparin Sodium (Lovenox) 30 mg SC DAILY [facility] PRN Reason: Protocol Last Admin: 06/06/17 10:00 Dose: 30 mg Famotidine (Pepcid) 20 mg PO DAILY [facility] Last Admin: 06/06/17 10:00 Dose: Not Given Hydralazine HCl (Apresoline) 10 mg IVP Q6 PRN PRN Reason: for SBP>170 and Diastolic >100 Potassium Phosphate 20 mmole/ (Dextrose/Sodium Chloride) 1,006.6667 mls @ 80 mls/hr IV .[id number] [facility] Last Admin: 06/06/17 21:11 Dose: 80 mls/hr Fluconazole 100 mg/ (Miscellaneous) 50 mls @ 100 mls/hr IVPB DAILY [facility] PRN Reason: Protocol Stop: 06/08/17 14:00 Last Admin: 06/06/17 14:00 Dose: 100 mls/hr Levetiracetam (Keppra 500mg Ivpb) 500 mg in 100 mls @ 300 mls/hr IVPB Q12 [facility] Labetalol HCl (Trandate) 20 mg IVP TID [facility] Last Admin: 06/06/17 18:28 Dose: 20 mg Lamotrigine (Lamictal) 200 mg PO BID [facility] Last Admin: 06/06/17 18:28 Dose: 200 mg Levetiracetam (Keppra) 500 mg PO BID [facility] Last Admin: 06/06/17 18:28 Dose: 500 mg Methylprednisolone (Solu-Medrol) 20 mg IVP Q8 [facility] Last Admin: 06/07/17 05:58 Dose: 20 mg Metoprolol Tartrate (Lopressor) 5 mg IVP Q6 [facility] Last Admin: 06/07/17 06:00 Dose: 5 mg Morphine Sulfate (Morphine) 2 mg IVP Q3 PRN PRN Reason: Pain, severe (8-10) Potassium Chloride (K-Dur 20 Meq Er Tab) 20 meq PO BRK [facility] Last Admin: 06/06/17 12:29 Dose: Not Given Prednisone (Prednisone Tab) 5 mg PO DAILY [facility] Last Admin: 06/05/17 10:41 Dose: 5 mg - Labs Labs: 06/07/17 06:00 06/07/17 06:00 PT 10.6 Seconds (9.9-11.8) 05/31/17 11:30 INR 0.98 (0.93-1.08) 05/31/17 11:30 APTT 24.1 Seconds (23.7-30.8) 05/31/17 11:30 - Constitutional Appears: Younger Than Stated Age, Cachectic - Head Exam Head Exam: ATRAUMATIC, NORMAL INSPECTION, NORMOCEPHALIC - Eye Exam Eye Exam: EOMI, Normal appearance, PERRL. absent: Scleral icterus - ENT Exam ENT Exam: Mucous Membranes Moist - Respiratory Exam Respiratory Exam: Clear to Ausculation Bilateral. absent: Rales, Rhonchi, Wheezes - Cardiovascular Exam Cardiovascular Exam: REGULAR RHYTHM, +S1, +S2 - GI/Abdominal Exam GI & Abdominal Exam: Soft, Normal Bowel Sounds. absent: Distended, Guarding, Rigid - Extremities Exam Extremities Exam: Normal Capillary Refill. absent: Calf Tenderness, Pedal Edema - Neurological Exam Additional comments: Pt was sleeping. Easy awakening. AAOx2 Assessment and Plan - Assessment and Plan (Free Text) Plan: 66 AA F, from [facility] subacute rehab, had fever of 102.5, admitted for AMS, sepsis, dehydration. Pt has PMH sign for Stage IV Lymphoma w mets to R mackle cave (temporal bone area) leading to trigeminal neuralgia & dysphagia, s/ p radiation R-CVP, and chronic pancytopenia. At baseline, pt is B&B incontinent. Pt has persistent sinus tachycardia requiring med changes. Failure to thrive - Pt does not swallow yesterday - Eventually PEG placement? - No advance directive on file. - Palliative consult Sinus tachycardia - cardiac enzyme negative - Keep sbp between 130-140 - likely chronic problem. No further workup per Dr. Bynum. Continue to observe on remote tele and vs measure - Amlodipine 10, hydralazine 25 QID, Labetalol 20 IV TID Stage IV small cell lymphocytic lymphoma, metastatic to brain pressing on the trigeminal nerve and lateral alma s/p chemo, h/o seizure disorders Disphagia Seizure Hx - Keppra 500 BID IV - Bone Scan (06/05) - No evidence of bony mets. Degenerative changes in appendicular skeleton - Swallow eval reveals worsening of dysphagia. - MRI of head 2 months ago was without contrast - Will defer LP at this time giving that patient already has cancer. - will obtain MRI with/w/o contrast, c spine and thoracic MRI. - PT/OT eval - Continue to monitor and treat electrolytes. - Avoid sedatives - If positive brain mets, will consider intrathecal streoid Pancytopenia - Prednisone 5 daily - Leucopenia = sepsis vs lymphoma - anemia = stable at 10 SIRS. Doubt Sepsis - Afebile, WBC 2.5, lactate 1.2, procal 1.03 (high, in the setting of BATSHEVA) - CT-chest w/o contrast: unremarkable - Observe off ANX. S/p Zosyn -Fluconazole IV BATSHEVA, prerenal azotemia Hypernatremia, dehydation Mentation improves with corrected hypernatremia and IVF - Monitor Urine Output - D5-halfNS @ 80 - Monitor electrolyte closely - On K-dur HTN - not on meds Prophylaxis - SCD - Pepcid 20 daily Disposition - spouse and daughter attempt to get medicaid for patient and they do not want her to return to [facility] - event manager explained that they may have to send her back until medicaid comes thru due to insurance issues - Palliative consult S/R/D/w Dr. Bynum
[2017-06-07] MEDS: Potassium Chloride 20 mEq ER Tab PO SCH (08:24)
[2017-06-07] MEDS ORDERED: levETIRAcetam 500mg IVPB 500 MG/100 ML BAG IVPB SCH (10:00)
[2017-06-07] MEDS: Labetalol 5 mg/ml Inj 20ML IVP SCH ×3 (10:12→17:50)
--- NOTE | 2017-06-07 10:16 | CP.PCM.PN ---
<Elissa Montes - Last Filed: 06/07/17 12:11> Subjective - Date & Time of Evaluation Date of Evaluation: 06/07/17 Time of Evaluation: 10:10 - Subjective Subjective: PGY-2 Neurology progress note for Dr Schwartz. Patient remains tachycardic and hypertensive. Patient's unable to undergo MRI of the brain and spine because patient was too contracted and confused. Patient is better mental status escobar, is more conversational, and alert and oriented to person and place. Patient's extremities are still contracted, states its painful when she tries to strengthen them. Objective - Vital Signs/Intake and Output Vital Signs (last 24 hours): Temp Pulse Resp BP Pulse Ox 98.7 F 94 H 18 163/96 H 100 06/06/17 23:30 06/07/17 06:00 06/06/17 23:30 06/07/17 06:00 06/06/17 23:30 Intake and Output: 06/07/17 06/07/17 06:59 18:59 Intake Total 120 Balance 120 - Medications Medications: Current Medications Acetaminophen (Tylenol 325mg Tab) 650 mg PO Q6H PRN PRN Reason: Pain, moderate (4-7) Last Admin: 06/01/17 14:40 Dose: 650 mg Amlodipine Besylate (Norvasc) 10 mg PO DAILY [facility] Last Admin: 06/05/17 10:41 Dose: 10 mg Docusate Sodium (Colace) 100 mg PO TID [facility] Last Admin: 06/06/17 18:13 Dose: Not Given Enoxaparin Sodium (Lovenox) 30 mg SC DAILY [facility] PRN Reason: Protocol Last Admin: 06/06/17 10:00 Dose: 30 mg Famotidine (Pepcid) 20 mg PO DAILY [facility] Last Admin: 06/06/17 10:00 Dose: Not Given Hydralazine HCl (Apresoline) 25 mg PO QID [facility] Fluconazole 100 mg/ (Miscellaneous) 50 mls @ 100 mls/hr IVPB DAILY [facility] PRN Reason: Protocol Stop: 06/08/17 14:00 Last Admin: 06/06/17 14:00 Dose: 100 mls/hr Labetalol HCl (Trandate) 20 mg IVP TID [facility] Last Admin: 06/06/17 18:28 Dose: 20 mg Lamotrigine (Lamictal) 200 mg PO BID [facility] Last Admin: 06/06/17 18:28 Dose: 200 mg Levetiracetam (Keppra) 500 mg PO BID [facility] Last Admin: 06/06/17 18:28 Dose: 500 mg Methylphenidate HCl (Ritalin) 5 mg PO DAILY [facility] Potassium Chloride (K-Dur 20 Meq Er Tab) 20 meq PO BRK [facility] Last Admin: 06/07/17 08:24 Dose: Not Given Prednisone (Prednisone Tab) 5 mg PO DAILY [facility] Last Admin: 06/05/17 10:41 Dose: 5 mg - Labs Labs: 06/07/17 06:00 06/07/17 06:00 PT 10.6 Seconds (9.9-11.8) 05/31/17 11:30 INR 0.98 (0.93-1.08) 05/31/17 11:30 APTT 24.1 Seconds (23.7-30.8) 05/31/17 11:30 - Constitutional Appears: No Acute Distress, Older Than Stated Age, Cachectic, Chronically Ill - Head Exam Head Exam: ATRAUMATIC, NORMAL INSPECTION, NORMOCEPHALIC - Eye Exam Eye Exam: EOMI, Normal appearance, PERRL Pupil Exam: NORMAL ACCOMODATION, PERRL - ENT Exam ENT Exam: Mucous Membranes Moist - Neck Exam Neck Exam: Full ROM, Normal Inspection - Respiratory Exam Respiratory Exam: Clear to Ausculation Bilateral, NORMAL BREATHING PATTERN. absent: Rales, Rhonchi, Wheezes, Respiratory Distress, Stridor - Cardiovascular Exam Cardiovascular Exam: Tachycardia, REGULAR RHYTHM, +S1, +S2 - GI/Abdominal Exam GI & Abdominal Exam: Soft, Normal Bowel Sounds. absent: Distended, Tenderness - Extremities Exam Extremities Exam: absent: Pedal Edema - Back Exam Back Exam: NORMAL INSPECTION - Neurological Exam Additional comments: Patient is more awake, and conversational Patient is still very protracted, especially in the left upper extremities and b /l lower extremities. Eyes were open spontaneously. Pupils reactive to light. Patient follows simple commands transiently, 2/5 upper extremities motor strength b/l. Reflexes 2+ throughout, Negative babinski No clonus. Assessment and Plan - Assessment and Plan (Free Text) Assessment: Patient is a 66 y/o with pmh of htn, COPD, stage iv cell lymphoma w/o mets to the right meckel's cave pressing on the trigeminal nerve and lateral alma s/p chemo, h/o seizure disorders, h/o right rotator cuff tear whom presented with SIRS, along with multi organ dysfunction. Neurology is consulted for worsening mental status. Patient is more awake and alert today, more conversational. Plan: - Patient will need PT for deconditioned state - Patient is too contracted for bedside LP, consider LP with fluoroscope, call Dr Sargent. - Avoid sedatives and opioid. - Continue with current medical management - Thank you for consulting Dr Schwartz. Patient seen, examined, discussed with Dr Schwartz. <Petar Schwartz - Last Filed: 06/07/17 12:25> Objective - Vital Signs/Intake and Output Vital Signs (last 24 hours): Temp Pulse Resp BP Pulse Ox 98.7 F 94 H 18 163/96 H 100 06/06/17 23:30 06/07/17 10:17 06/06/17 23:30 06/07/17 10:18 06/06/17 23:30 Intake and Output: 06/07/17 06/07/17 06:59 18:59 Intake Total 120 Balance 120 - Medications Medications: Current Medications Acetaminophen (Tylenol 325mg Tab) 650 mg PO Q6H PRN PRN Reason: Pain, moderate (4-7) Last Admin: 06/01/17 14:40 Dose: 650 mg Amlodipine Besylate (Norvasc) 10 mg PO DAILY [facility] Last Admin: 06/07/17 10:18 Dose: 10 mg Docusate Sodium (Colace) 100 mg PO TID [facility] Last Admin: 06/07/17 10:21 Dose: 100 mg Enoxaparin Sodium (Lovenox) 30 mg SC DAILY [facility] PRN Reason: Protocol Last Admin: 06/07/17 10:18 Dose: 30 mg Famotidine (Pepcid) 20 mg PO DAILY [facility] Last Admin: 06/06/17 10:00 Dose: Not Given Hydralazine HCl (Apresoline) 25 mg PO QID [facility] Last Admin: 06/07/17 10:17 Dose: 25 mg Fluconazole 100 mg/ (Miscellaneous) 50 mls @ 100 mls/hr IVPB DAILY [facility] PRN Reason: Protocol Stop: 06/08/17 14:00 Last Admin: 06/07/17 10:18 Dose: 100 mls/hr Labetalol HCl (Trandate) 20 mg IVP TID [facility] Last Admin: 06/07/17 10:12 Dose: 20 mg Lamotrigine (Lamictal) 200 mg PO BID [facility] Last Admin: 06/07/17 10:17 Dose: 200 mg Levetiracetam (Keppra) 500 mg PO BID [facility] Last Admin: 06/06/17 18:28 Dose: 500 mg Methylphenidate HCl (Ritalin) 5 mg PO DAILY [facility] Last Admin: 06/07/17 10:18 Dose: 5 mg Potassium Chloride (K-Dur 20 Meq Er Tab) 20 meq PO BRK [facility] Last Admin: 06/07/17 08:24 Dose: Not Given Prednisone (Prednisone Tab) 5 mg PO DAILY [facility] Last Admin: 06/05/17 10:41 Dose: 5 mg - Labs Labs: 06/07/17 06:00 06/07/17 06:00 PT 10.6 Seconds (9.9-11.8) 05/31/17 11:30 INR 0.98 (0.93-1.08) 05/31/17 11:30 APTT 24.1 Seconds (23.7-30.8) 05/31/17 11:30 Attending/Attestation - Attestation I have personally seen and examined this patient.: Yes I have fully participated in the care of the patient.: Yes I have reviewed all pertinent clinical information, including history, physical exam and plan: Yes Notes (Text): 06/07/17 12:24 continue with oncology and supportive care. Lp if wanted should be done underfluro. patient can not tolerate MRI due to contracted position. Physical therapy and supportive care at this point. NATY CHAMBERLAIN
[2017-06-07] MEDS: Fluconazole IV 200mg/100 ml NS 100 MG in Premixed IV 1 EA IVPB SCH (10:18)
[2017-06-07] MEDS: Enoxaparin 30 mg Syringe SC SCH (10:18)
--- NOTE | 2017-06-07 12:12 | CP.PCM.CON ---
History of Present Illness - History of Present Illness History of Present Illness: Palliative consult requested by Dr Padmini Bynum Reason: Goals of care/advance care planning 66 year old female with history of lymphoma who was sent for [facility] with altered mental status, fever. Admitted with hypernatremia,prerenal azotemia, sepsis, SIRS. Nuclear bone scan/ CT of head and chest showed no evidence of metastatic disease. 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 Social History:Non smoker, no alcohol or drug use.Was living with , recently sent to [facility] at [place] for deconditioning. Family History: Non contributory Advance Care Planning; The patient does not have an advanced Directive Review of Systems: As per HPI,limited range of motion of lower extremities and left arm, all other systems are negative Past Patient History - Infectious Disease Hx of Infectious Diseases: None - Past Medical History & Family History Past Medical History?: Yes - Past Social History Smoking Status: Never Smoked Home Situation {Lives}: Alf - CARDIAC Hx Cardiac Disorders: Yes - PULMONARY Hx Chronic Obstructive Pulmonary Disease (COPD): Yes - NEUROLOGICAL Hx Neurological Disorder: Yes (BRAIN AND NECK MASS-BRAIN CA WITH RADIATION) HX Cerebrovascular Accident: No Hx Dizziness: Yes (SYNCOPE) - HEENT Hx HEENT Problems: Yes Hx Cataracts: Yes (bilateral) - RENAL Hx Pyelonephritis: Yes Hx Renal Failure: No - ENDOCRINE/METABOLIC Hx Diabetes Mellitus Type 1: No Hx Diabetes Mellitus Type 2: No Hx Hypothyroidism: No - HEMATOLOGICAL/ONCOLOGICAL Hx Cancer: Yes (lynmphoma with brain mets) - INTEGUMENTARY Hx Dermatological Problems: No - MUSCULOSKELETAL/RHEUMATOLOGICAL Hx Falls: Yes - GASTROINTESTINAL Hx Gastroesophageal Reflux: Yes - GENITOURINARY/GYNECOLOGICAL Hx Genitourinary Disorders: Yes (HYSTERECTOMY) Hx Incontinence: Yes - PSYCHIATRIC Hx Psychophysiologic Disorder: Yes Hx Anxiety: Yes Hx Substance Use: No - SURGICAL HISTORY Hx Hysterectomy: Yes Other/Comment: Port in R chest - ANESTHESIA Hx Anesthesia: Yes Hx Anesthesia Reactions: No Hx Malignant Hyperthermia: No Meds Home Medications: Home Medication List Medication Instructions Recorded Confirmed Type Metoprolol Succinate [Toprol XL] 100 mg PO DAILY tab 06/05/17 Rx predniSONE [predniSONE Tab] 5 mg PO DAILY tab 06/05/17 Rx Allergies/Adverse Reactions: Allergies Allergy/AdvReac Type Severity Reaction Status Date / Time No Known Allergies Allergy Verified 05/31/17 17:59 - Medications Medications: Current Medications Acetaminophen (Tylenol 325mg Tab) 650 mg PO Q6H PRN PRN Reason: Pain, moderate (4-7) Last Admin: 06/01/17 14:40 Dose: 650 mg Amlodipine Besylate (Norvasc) 10 mg PO DAILY [facility] Last Admin: 06/07/17 10:18 Dose: 10 mg Docusate Sodium (Colace) 100 mg PO TID [facility] Last Admin: 06/07/17 10:21 Dose: 100 mg Enoxaparin Sodium (Lovenox) 30 mg SC DAILY [facility] PRN Reason: Protocol Last Admin: 06/07/17 10:18 Dose: 30 mg Famotidine (Pepcid) 20 mg PO DAILY [facility] Last Admin: 06/06/17 10:00 Dose: Not Given Hydralazine HCl (Apresoline) 25 mg PO QID [facility] Last Admin: 06/07/17 10:17 Dose: 25 mg Fluconazole 100 mg/ (Miscellaneous) 50 mls @ 100 mls/hr IVPB DAILY [facility] PRN Reason: Protocol Stop: 06/08/17 14:00 Last Admin: 06/07/17 10:18 Dose: 100 mls/hr Labetalol HCl (Trandate) 20 mg IVP TID [facility] Last Admin: 06/07/17 10:12 Dose: 20 mg Lamotrigine (Lamictal) 200 mg PO BID [facility] Last Admin: 06/07/17 10:17 Dose: 200 mg Levetiracetam (Keppra) 500 mg PO BID [facility] Last Admin: 06/06/17 18:28 Dose: 500 mg Methylphenidate HCl (Ritalin) 5 mg PO DAILY [facility] Last Admin: 06/07/17 10:18 Dose: 5 mg Potassium Chloride (K-Dur 20 Meq Er Tab) 20 meq PO BRK [facility] Last Admin: 06/07/17 08:24 Dose: Not Given Prednisone (Prednisone Tab) 5 mg PO DAILY [facility] Last Admin: 06/05/17 10:41 Dose: 5 mg Physical Exam - Constitutional Appears: No Acute Distress, Chronically Ill - Head Exam Head Exam: NORMOCEPHALIC - Eye Exam Eye Exam: Normal appearance, PERRL - ENT Exam ENT Exam: Mucous Membranes Moist, Normal Oropharynx - Neck Exam Neck exam: Positive for: Normal Inspection - Respiratory Exam Respiratory Exam: Decreased Breath Sounds, NORMAL BREATHING PATTERN - Cardiovascular Exam Cardiovascular Exam: REGULAR RHYTHM, +S1, +S2 - GI/Abdominal Exam GI & Abdominal Exam: Normal Bowel Sounds, Soft - Extremities Exam Additional comments: [id number] of both lower extremities and left arm, limited ROM - Neurological Exam Neurological exam: Alert - Skin Skin Exam: Dry, Warm - Additional Findings Additional findings: Palliative performance scale rating 40% Results - Vital Signs Recent Vital Signs: Last Vital Signs Temp 98.7 F 06/06/17 23:30 Pulse 94 H 06/07/17 10:17 Resp 18 06/06/17 23:30 BP 163/96 H 06/07/17 10:18 Pulse Ox 100 06/06/17 23:30 - Labs Result Diagrams: 06/07/17 06:00 06/07/17 06:00 Labs: Laboratory Results - last 24 hr 06/06/17 06/07/17 06/07/17 13:32 06:00 06:00 WBC 5.1 RBC 3.36 L Hgb 9.9 L Hct 30.4 L MCV 90.5 MCH 29.5 MCHC 32.6 RDW 13.7 Plt Count 191 MPV 9.4 Gran % 42.6 L Lymph % (Auto) 51.5 H [place] % (Auto) 4.1 Eos % (Auto) 0.2 L Baso % (Auto) 1.6 Gran # 2.16 Lymph # 2.6 [place] # 0.2 Eos # 0.0 Baso # 0.08 Sodium 139 Potassium 4.5 Chloride 106 Carbon Dioxide 27 Anion Gap 11 BUN 13 Creatinine 0.6 Est GFR ( Amer) > 60 Est GFR (Non-Af Amer) > 60 Random Glucose 172 H Calcium 8.9 Phosphorus 4.1 Magnesium 1.8 Total Bilirubin 0.7 AST 56 H ALT 88 H Alkaline Phosphatase 110 Ammonia < 9 L Total Protein 5.2 L Albumin 2.9 L Globulin 2.4 Albumin/Globulin Ratio 1.2 TSH 3rd Generation 06/07/17 06:00 WBC RBC Hgb Hct MCV MCH MCHC RDW Plt Count MPV Gran % Lymph % (Auto) [place] % (Auto) Eos % (Auto) Baso % (Auto) Gran # Lymph # [place] # Eos # Baso # Sodium Potassium Chloride Carbon Dioxide Anion Gap BUN Creatinine Est GFR ( Amer) Est GFR (Non-Af Amer) Random Glucose Calcium Phosphorus Magnesium Total Bilirubin AST ALT Alkaline Phosphatase Ammonia Total Protein Albumin Globulin Albumin/Globulin Ratio TSH 3rd Generation 1.52 Assessment & Plan - Assessment and Plan (Free Text) Assessment: 66 year old female admitted with sepsis,SIRS altered mental status, hypernatremia, deconditioning. The patient is alert and able to answer simple questions. Appetite improved, needs assistance with meals, ADLS. She denies pain, headache, nausea. Patient's and daughter at bedside. Palliative services explained. Advance care planning and resuscitation status discussed with patient and family. Benefits and burdens of CPR/intubation/ exterminator termite artificial feeding explained to all. Questions answered. Patient is unsure as to what she wants to do. Psychosocial support given. Will meet with patient/family again to have additional advance care planning discussion. Patient/family also met with Susan Johnson to complete power of site safety coordinator documents. Lizeth spent with patient and family in advance care planning discussion, 20 minutes Plan: Palliative support Advance care planning
--- NOTE | 2017-06-07 13:48 | PN ---
DATE: SUBJECTIVE: The patient had been less lethargic yesterday and today is sleeping, but arousable. She is to participate in some physical therapy yesterday. Able to transfer from bed to chair. The patient is afebrile. PHYSICAL EXAMINATION VITAL SIGNS: Stable. Her temperature is 98.7, blood pressure 163/96, pulse is 94. LABORATORY DATA: On this patient reveal white count of 5.1, hemoglobin 9.9. She is improving steadily. Sodium is up to 139, potassium 4.5. She was seen by neurology and felt that had toxic metabolic encephalopathy. She is not able to handle her . A new power of commercial attorney is being instituted by the family and we are looking placement at [facility][1] for possibly lobsterman. PLAN: To continue her recent treatment of sepsis and her neurological evaluation. She will also add some neuro stimulants to try to activate her sensorium. We will continue to work with the patient with physical therapy and occupational therapy. Continue to treat her hypertension and seizure disorder. She has completed her treatment of her lymphoma. Vital signs are stable. Plan is to continue this course of treatment. Alex Butt MD
--- NOTE | 2017-06-07 16:32 | PN ---
SUBJECTIVE: The patient is seen lying comfortable in bed on 3R. Family is in the room. IV fluid hydration has been discontinued and the patient is attempting to taking increased amounts of thickened fluids. She appears to be no in no acute distress. Her blood pressure has trended higher over the last 24 hours. MEDICATIONS: Medication list reviewed. The patient is currently on Hydralazine, Colace, fluconazole, potassium, Lamictal, Lovenox, Norvasc, Ritalin, Trandate and Tylenol p.r.n. OBJECTIVE: INTAKE/OUTPUT: Intake 1940, output 100. VITAL SIGNS: Blood pressure 163/96, temperature 98.3, respiratory rate 18 with a pulse of 94. HEENT: Normocephalic and atraumatic. Conjunctivae are pale. Sclerae nonicteric. NECK: Supple. No neck vein distention. Chest clear to auscultation and percussion. No rales. No rhonchi. No wheezing. CARDIOPULMONARY: Regular rate and rhythm without audible murmurs, rubs, or gallops. ABDOMEN: Soft. Bowel sound normal. No rebound, no guarding. No masses. EXTREMITIES: Showed no lower extremity cyanosis, clubbing or edema. LABORATORY DATA AND IMAGING: CBC: White blood cell count 5.1, hemoglobin 9.9 with a platelet count of 191,000. Chemistries showed normal electrolytes. BUN is far from 63 to 13. Creatinine is far from 2.7 to 0.6 well within her baseline range at present. Slight elevation of her liver enzymes. Albumin is 2.9, calcium 8.9, phosphorous 4.1, magnesium 1.8. Microbiology all cultures are negative. ASSESSMENT: 1. Acute renal failure resolved. The patient presented with prerenal azotemia in the setting of volume depletion hemoconcentration and dehydration with hypotonic IV hydration. Her BUN and creatinine have returned to normal. 2. Hyponatremia resolved. 3. Status post mild hypomagnesemia and hypopotassemia. These have resolved with K-Phos supplements and her IV fluid and magnesium supplements. 4. 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 The patient remains seizure free on Lamictal. Keppra has been placed on hold. 5. History of hypertension over the last 24 hours. Blood pressure has trended higher. I will restart the patient back on lisinopril 20 mg a day in addition to hydralazine, in addition to labetalol and in addition to Norvasc. 6. No history of sepsis, all cultures are negative. PLAN: 1. Discussed with family in detail. Attempt to increase p.o. fluid intake in order to avoid dehydration, prerenal azotemia and acute renal failure. 2. Adjustment in blood pressure medication as noted above. 3. Biochemically and from a renal standpoint, the patient is stable. Jerry Chatman MD
--- NOTE | 2017-06-08 01:17 | PN ---
DATE: 06/07/2017 REASON FOR CONSULTATION: Persistently sinus tachycardia, cardiac evaluation. SUBJECTIVE: The patient is lying flat. Denies any chest pain, shortness of breath, or any palpitation. PHYSICAL EXAMINATION: As follows: VITAL SIGNS: Temperature afebrile, heart rate 116 and blood pressure 130/83. HEENT: PERRLA, EOM intact. NECK: Supple. No carotid bruit. No thyromegaly. HEART: S1 and S2, regular. LUNGS: Clear to auscultation ABDOMEN: Soft. EXTREMITIES: Clubbing and cyanosis negative. LABORATORY DATA: Blood workup as follows. WBC 5.1, hemoglobin 9.9, hematocrit is 38.4 and platelet count 191. Chemistry showed sodium 139, potassium 4.5, chloride 106, carbon dioxide 27, anion gap of 11, BUN 13, creatinine 0.5. Total protein 5.2, albumin 2.9, albumin globulin ratio 1.2. IMPRESSION: Protein calorie-malnutrition, dysphagia, inability to take, anemia, sinus tachycardia which is multifactorial. TSH 1.52. Second underlying condition anemia, history of lymphocytic lymphoma with metastasis to the brain, lethargic, lying on the bed and not in apparent distress. Last echocardiogram on 10/26/2016 at [facility] ejection fraction was 65-70% and no pericardial effusion, normal mitral valve reported. No tricuspid regurgitation, *------*, systolic pressure was 16. Yesterday, the patient was on metoprolol then p.o. propranolol was started, but the patient since inability to take p.o., has dysphagia, so Inderal (propranolol) IV was started, but since 3 hours it was out of protocol cannot be given, so metoprolol IV was started. If patient is not responding, if remains persistently tachycardiac then the patient needs to be transferred to a telemetry to give IV propranolol because IV propranolol cannot be given in 3 hours. Continue metoprolol 5 mg .q. 6 hours. Overall, the patient's condition is critical. Long-term prognosis guarded. Thank you Dr. Bynum/Dr. Butt for the opportunity in taking care of Cain Iglesias. Waylon Perez MD cc: Alex Butt MD
--- NOTE | 2017-06-08 06:17 | PN ---
DATE: 06/07/2017 SUBJECTIVE: The patient is seen earlier this morning in room 374, bed 1. No fevers or chills. No nausea. PHYSICAL EXAMINATION: Vital signs: Temperature is 98, blood pressure is 120/70, respiratory rate of 18. HEENT: Unremarkable. Neck: Supple. Lungs: Decreased breath sounds. Heart: Normal. S1 and S2. Abdomen: Soft, nontender. LABORATORY DATA: Reveals a white count of 5.1, hemoglobin of 9 and platelets of 191. Chemistries reveals a BUN of 13, creatinine of 0.6. Urinalysis is noted and microbiology reveals the blood cultures have no growth and urine cultures have no growth. Katty Tillman's note is reviewed and Dr. Butt's note is reviewed. MEDICATIONS: Review of orders reveals the patient to be on IV Diflucan. The patient is also on prednisone. ASSESSMENT AND PLAN: This is a 66-year-old female with systemic inflammatory response syndrome with acute appendicitis, sinusitis, and bilateral otomastoiditis in a patient status post chemotherapy, leukopenia, now on IV Diflucan, started by Dr. Bynum. We will follow with you. Jose Suh MD
[2017-06-08 07:08] LABS: ALB/GLOB RATIO 1.2 (1.1-1.8); ALBUMIN 2.6 g/dL (3.0-4.8); ALT/SGPT 82 U/L (7-56); AST/SGOT 63 U/L (15-39); BLOOD UREA NITROGEN 20 mg/dL (7-21); CALCIUM 9.1 mg/dL (8.4-10.5); GFR AFRICAN-AMERICAN > 60; GFR NON-AFRICAN AMERICAN > 60
[2017-06-08 07:22] LABS: BASO # 0.05 K/mm3 (0.0-2.0); BASO % 0.7 % (0.0-3.0); EOS # 0.1 (0.0-0.7); EOS % 0.8 % (1.5-5.0); GRAN # 1.94 (1.4-6.5); GRAN % 27.2 % (50.0-68.0); HEMOGLOBIN 8.7 gm/dL (12.0-16.0); LYMPH # 4.2 (1.2-3.4); LYMPH % 59.4 % (22.0-35.0); MEAN CELL VOLUME 93.8 fL (80.0-105.0); MEAN CORPUSCULAR HEMOGLOBIN 29.9 pg (25.0-35.0); MEAN CORPUSCULAR HGB CONC 31.9 g/dl (31.0-37.0); MEAN PLATELET VOLUME 9.4 fl (7.0-11.0); MONO # 0.9 (0.1-0.6); MONO % 11.9 % (1.0-6.0); PLATELET COUNT 238 10^3/uL (120.0-450.0); RBC 2.91 10^6/uL (3.5-6.1); RED CELL DISTRIBUTION WIDTH 14.1 % (11.5-14.5); WHITE BLOOD COUNT 7.1 10^3/ul (4.5-11.0)
--- NOTE | 2017-06-08 08:01 | CP.PCM.PN ---
Subjective - Date & Time of Evaluation Date of Evaluation: 06/08/17 Time of Evaluation: 07:59 - Subjective Subjective: PGY-[address] Bynum Pt refuses all oral medication, refuse yougurt, refuse all food, o% finished. RN attempted 3 times. refuses PEG tube placement. Disscusedd dehydration, malnutrition, artificial nutrition, alternative, risk, benefit. understand and refuse PEG as local intermodal truck driver solution Per , daugher is POA on financial. is medical POA. Objective - Vital Signs/Intake and Output Vital Signs (last 24 hours): Temp Pulse Resp BP Pulse Ox 98.9 F 98 H 20 123/72 98 06/07/17 16:00 06/07/17 22:00 06/07/17 16:00 06/07/17 21:51 06/07/17 16:00 Intake and Output: 06/08/17 06/08/17 06:59 18:59 Intake Total 360 Balance 360 - Medications Medications: Current Medications Acetaminophen (Tylenol 325mg Tab) 650 mg PO Q6H PRN PRN Reason: Pain, moderate (4-7) Last Admin: 06/01/17 14:40 Dose: 650 mg Amlodipine Besylate (Norvasc) 10 mg PO DAILY [facility] Last Admin: 06/07/17 10:18 Dose: 10 mg Docusate Sodium (Colace) 100 mg PO TID [facility] Last Admin: 06/07/17 17:49 Dose: Not Given Enoxaparin Sodium (Lovenox) 30 mg SC DAILY [facility] PRN Reason: Protocol Last Admin: 06/07/17 10:18 Dose: 30 mg Famotidine (Pepcid) 20 mg PO DAILY [facility] Last Admin: 06/06/17 10:00 Dose: Not Given Hydralazine HCl (Apresoline) 25 mg PO QID [facility] Last Admin: 06/07/17 21:51 Dose: 25 mg Fluconazole 100 mg/ (Miscellaneous) 50 mls @ 100 mls/hr IVPB DAILY [facility] PRN Reason: Protocol Stop: 06/08/17 14:00 Last Admin: 06/07/17 10:18 Dose: 100 mls/hr Labetalol HCl (Trandate) 20 mg IVP TID [facility] Last Admin: 06/07/17 17:50 Dose: 20 mg Lamotrigine (Lamictal) 200 mg PO BID [facility] Last Admin: 06/07/17 17:49 Dose: 200 mg Levetiracetam (Keppra) 500 mg PO BID [facility] Last Admin: 06/06/17 18:28 Dose: 500 mg Lisinopril (Zestril) 20 mg PO DAILY [facility] Last Admin: 06/07/17 14:49 Dose: 20 mg Methylphenidate HCl (Ritalin) 5 mg PO DAILY [facility] Last Admin: 06/07/17 10:18 Dose: 5 mg Potassium Chloride (K-Dur 20 Meq Er Tab) 20 meq PO BRK [facility] Last Admin: 06/07/17 08:24 Dose: Not Given Prednisone (Prednisone Tab) 5 mg PO DAILY [facility] Last Admin: 06/05/17 10:41 Dose: 5 mg - Labs Labs: 06/08/17 05:52 06/08/17 05:52 PT 10.6 Seconds (9.9-11.8) 05/31/17 11:30 INR 0.98 (0.93-1.08) 05/31/17 11:30 APTT 24.1 Seconds (23.7-30.8) 05/31/17 11:30 - Constitutional Appears: No Acute Distress, Confused, Cachectic, Chronically Ill - Eye Exam Eye Exam: Normal appearance, PERRL. absent: Scleral icterus - ENT Exam ENT Exam: Mucous Membranes Moist - Respiratory Exam Respiratory Exam: Clear to Ausculation Bilateral. absent: Rales, Rhonchi, Wheezes - Cardiovascular Exam Cardiovascular Exam: REGULAR RHYTHM, +S1, +S2 - GI/Abdominal Exam GI & Abdominal Exam: Soft. absent: Distended, Tenderness - Neurological Exam Neurological Exam: absent: Alert (recognise family aaox1) - Psychiatric Exam Psychiatric exam: Flat Affect, Normal Mood - Skin Skin Exam: Dry, Warm Assessment and Plan - Assessment and Plan (Free Text) Plan: 66 AA F, from [facility] subacute rehab, had fever of 102.5, admitted for AMS, sepsis, dehydration. Pt has PMH sign for Stage IV Lymphoma w mets to R [place] (temporal bone area) leading to trigeminal neuralgia & dysphagia, s/ p radiation R-CVP, and chronic pancytopenia. At baseline, pt is B&B incontinent. Pt has persistent sinus tachycardia requiring med changes. Pt refuses all PO food - changed seizure med to IV - keep solumedrol iv Failure to thrive - Hx lethargy and dysphagia - refuse PEG placement - Palliative consult met with family. Will revisit issue Sinus tachycardia - cardiac enzyme negative - Keep sbp between 130-140 - likely chronic problem. No further workup per Dr. Bynum. Continue to observe on remote tele and vs measure - Amlodipine 10, hydralazine 25 QID, Labetalol 20 IV TID Stage IV small cell lymphocytic lymphoma, metastatic to brain pressing on the trigeminal nerve and lateral alma s/p chemo, h/o seizure disorders Disphagia Seizure Hx - Keppra 500 BID IV - Bone Scan (06/05) - No evidence of bony mets. Degenerative changes in appendicular skeleton - Swallow eval reveals worsening of dysphagia. - MRI of head 2 months ago was without contrast - Will defer LP at this time giving that patient already has cancer. - will obtain MRI with/w/o contrast, c spine and thoracic MRI. - PT/OT eval - Continue to monitor and treat electrolytes. - Avoid sedatives - If positive brain mets, will consider intrathecal streoid Pancytopenia - Prednisone 5 daily - Leucopenia = sepsis vs lymphoma - anemia = stable at 10 SIRS. Doubt Sepsis - Afebile, WBC 2.5, lactate 1.2, procal 1.03 (high, in the setting of BATSHEVA) - CT-chest w/o contrast: unremarkable - Observe off ANX. S/p Zosyn -Fluconazole IV BATSHEVA, prerenal azotemia Hypernatremia, dehydation Mentation improves with corrected hypernatremia and IVF - Monitor Urine Output - D5-halfNS @ 80 - Monitor electrolyte closely - On K-dur HTN - not on meds Prophylaxis - SCD - Pepcid 20 daily Advanced planning - remains medical POA for now - Patient/family also met with Susan Johnson to complete power of slope runner documents. Disposition - spouse and daughter attempt to get medicaid for patient - Will transfer to [facility]. S/R/D/w Dr. Bynum
[2017-06-08] MEDS: Potassium Chloride 20 mEq ER Tab PO SCH (08:46)
[2017-06-08] MEDS: Enoxaparin 30 mg Syringe SC SCH (10:03)
[2017-06-08] MEDS: Fluconazole IV 200mg/100 ml NS 100 MG in Premixed IV 1 EA IVPB SCH (10:03)
[2017-06-08] MEDS: Labetalol 5 mg/ml Inj 20ML IVP SCH ×3 (10:05→17:07)
[2017-06-08] MEDS ORDERED: MethylPREDNISolone 40 mg Vial IVP SCH (11:15)
--- NOTE | 2017-06-08 11:45 | PN ---
DATE: The patient is a 65-year-old black female admitted to the hospital with change in mental status, sepsis syndrome, history of lymphoma metastatic to the FUNCTIONAL SKILLS TUTOR, history of seizure disorder, hypertension, and tachyarrhythmia. The patient has been treated for possible fungal infection. She is on IV Diflucan. She has been seen by Neurology. She is felt to have toxic metabolic encephalopathy, mild dementia, history of treatment for FUNCTIONAL SKILLS TUTOR lymphoma, and long history of seizure disorder, on medication. We have stopped all pain medications and we have attempted to put her on Ritalin to increase her mentation and to continue physical therapy and occupational therapy. She is finishing her course of Diflucan. Vital signs are stable. The patient continues to have poor appetite and decrease in cough and her x-rays of her chest have been negative. Physical examination is unchanged. The patient is thin, weak, lethargic, easily arousable, but difficult to do physical therapy. Any change of power of assistant city attorney has been instituted by the family. The patient would be on long-term care. Alex Butt MD
--- NOTE | 2017-06-08 13:40 | CP.PCM.PN ---
Subjective - Date & Time of Evaluation Date of Evaluation: 06/08/17 Time of Evaluation: 11:00 - Subjective Subjective: Was lethargic earlier this morning, now much more alert. Able to answer simple questions. Denies pain. Objective - Vital Signs/Intake and Output Vital Signs (last 24 hours): Temp Pulse Resp BP Pulse Ox 98.2 F 107 H 18 142/87 97 06/08/17 06:00 06/08/17 06:00 06/08/17 06:00 06/08/17 10:03 06/08/17 06:00 Intake and Output: 06/08/17 06/08/17 06:59 18:59 Intake Total 360 Balance 360 - Medications Medications: Current Medications Acetaminophen (Tylenol 325mg Tab) 650 mg PO Q6H PRN PRN Reason: Pain, moderate (4-7) Last Admin: 06/01/17 14:40 Dose: 650 mg Amlodipine Besylate (Norvasc) 10 mg PO DAILY [facility] Last Admin: 06/08/17 10:03 Dose: Not Given Docusate Sodium (Colace) 100 mg PO TID [facility] Last Admin: 06/08/17 10:04 Dose: Not Given Enoxaparin Sodium (Lovenox) 30 mg SC DAILY [facility] PRN Reason: Protocol Last Admin: 06/08/17 10:03 Dose: 30 mg Famotidine (Pepcid) 20 mg PO DAILY [facility] Last Admin: 06/06/17 10:00 Dose: Not Given Hydralazine HCl (Apresoline) 25 mg PO QID [facility] Last Admin: 06/08/17 10:02 Dose: Not Given Fluconazole 100 mg/ (Miscellaneous) 50 mls @ 100 mls/hr IVPB DAILY [facility] PRN Reason: Protocol Stop: 06/08/17 14:00 Last Admin: 06/08/17 10:03 Dose: 100 mls/hr Labetalol HCl (Trandate) 20 mg IVP TID [facility] Last Admin: 06/08/17 10:05 Dose: 20 mg Lamotrigine (Lamictal) 200 mg PO BID [facility] Last Admin: 06/08/17 10:04 Dose: Not Given Levetiracetam (Keppra) 500 mg PO BID [facility] Last Admin: 06/08/17 10:04 Dose: Not Given Lisinopril (Zestril) 20 mg PO DAILY [facility] Last Admin: 06/08/17 10:04 Dose: Not Given Methylphenidate HCl (Ritalin) 5 mg PO DAILY [facility] Last Admin: 06/08/17 10:04 Dose: Not Given Methylprednisolone (Solu-Medrol) 20 mg IVP Q12 [facility] Last Admin: 06/08/17 12:03 Dose: 20 mg Potassium Chloride (K-Dur 20 Meq Er Tab) 20 meq PO BRK [facility] Last Admin: 06/08/17 08:46 Dose: Not Given Prednisone (Prednisone Tab) 5 mg PO DAILY [facility] Last Admin: 06/05/17 10:41 Dose: 5 mg - Labs Labs: 06/08/17 05:52 06/08/17 05:52 PT 10.6 Seconds (9.9-11.8) 05/31/17 11:30 INR 0.98 (0.93-1.08) 05/31/17 11:30 APTT 24.1 Seconds (23.7-30.8) 05/31/17 11:30 - Constitutional Appears: Cachectic, Chronically Ill - Eye Exam Eye Exam: Normal appearance, PERRL - ENT Exam ENT Exam: Mucous Membranes Moist - Respiratory Exam Respiratory Exam: Decreased Breath Sounds, NORMAL BREATHING PATTERN - Cardiovascular Exam Cardiovascular Exam: REGULAR RHYTHM, +S1, +S2 - GI/Abdominal Exam GI & Abdominal Exam: Soft, Normal Bowel Sounds - Neurological Exam Neurological Exam: Altered - Skin Skin Exam: Dry, Warm Assessment and Plan - Assessment and Plan (Free Text) Assessment: 66 year old female who was admitted with altered mental status, leukocytosis, fever, SIRS. History of lymphoma with brain involvement, s/p chemotherapy, s/p radiation therapy. The patient was alert and oriented to self yesterday. Her family was at bedside. Advanced care planning discussion ensued.Patient was not ready to affirm resuscitation wishes at that time. Patient encouraged to talk to her family about her wishes. I met with patient and her again today. Resuscitation wishes discussed. Patient states she does not want CPR, intubation or permanent feeding tube. POLST form completed, a copy is placed in chart. Time spent in advance care planning discussion with patient and , 20 minutes Plan: As discussed with Dr. Jeison Butt, POLST: DNR/DNI.
--- NOTE | 2017-06-08 15:04 | CP.PCM.PCO ---
Physician Communication Note - Physician Communication Note Physician Communication Note: C/W ONCOLOGY MX, BENEFIT FROM ACUTE REHAB.
[2017-06-08] MEDS: Dextrose 5%/0.45% NS 1,000 ML IV SCH (16:41)
--- NOTE | 2017-06-08 16:50 | PN ---
DATE: 06/08/2017 SUBJECTIVE: The patient is seen lying in bed. She is lethargic. She is minimally responsive at this time. As per the nursing staff, she has not had any breakfast. She is not taking any oral meds. PHYSICAL EXAMINATION: GENERAL: Elderly lady lying in bed in no acute distress. VITAL SIGNS: Blood pressure 142/87, heart rate 98. respiratory rate 18, and temperature 98.2. HEENT: Normocephalic and atraumatic. NECK: Supple. No JVD. CARDIAC: S1 and S2. Regular rate and rhythm. No murmurs. No rubs. LUNGS: Bilateral equal air entry, no rales. ABDOMEN: Soft, nondistended, and nontender. Bowel sounds are present. EXTREMITIES: No lower extremity edema. Intake and output; 600/not charted. LABORATORY DATA: WBC 7, hemoglobin 8.7, hematocrit 27, and platelets 238. Sodium 140, potassium 3.7, chloride 106, and carbon dioxide 29. BUN 20, creatinine 0.8, glucose 91, and calcium 9.1. AST 63, ALT 82, albumin 2.6, and corrected calcium is 10.1. Culture is negative. CURRENT MEDICATIONS: 1. Hydralazine 25 four times a day. 2. Colace 100 t.i.d. 3. K-Dur 20 mEq. 4. Keppra. 5. Lamictal. 6. Lovenox. 7. Amlodipine 10. 8. Pepcid. 9. Prednisone. 10. Trandate. 11. Tylenol. 12. Zestril. 13. Fluconazole 100 IV daily. ASSESSMENT: 1. Acute kidney injury resolved, largely prerenal azotemia. 2. Hyponatremia, resolved. 3. Mild hypokalemia. 4. Elevated liver function tests. 5. Borderline hypercalcemia. 6. 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 7. History of seizure disorder. 8. History of hypertension. PLAN: 1. In light of minimal p.o. intake, start IV fluids. 2. Neuro evaluation. 3. Continue antihypertensive. 4. Monitor electrolytes. 5. Advanced planning. Alexa Camarillo MD [facility] # [id number]
--- NOTE | 2017-06-08 18:54 | PN ---
DATE: 06/08/2017 REASON FOR CONSULTATION: Followup persistent sinus tachycardia, cardiac evaluation. SUBJECTIVE: The patient is a 66-year-old female. The patient denies any chest pain, lying flat. is at the bedside. Did not eat today, but yesterday ate a little bit. Today, the patient is still n.p.o. PHYSICAL EXAMINATION: As follows; VITAL SIGNS: Temperature afebrile, heart rate 107, blood pressure 140/87. HEENT: PERRLA, intact. NECK: Supple. No carotid bruit, no thyromegaly. CHEST: Clear to auscultation. HEART: S1 and S2, regular. ABDOMEN: Soft. EXTREMITIES: Clubbing and cyanosis negative. LABORATORY DATA: Blood workup as follows; WBC 7.8, hemoglobin *------*, hematocrit 27.3, platelet count 238. Chemistry shows sodium of 140, potassium 3.7, chloride 106, carbon dioxide 20, anion gap of 9, BUN 20, creatinine 0.8. Total protein 4.8, albumin 2.6, and albumin-globulin ratio 1.2. IMPRESSION: A 66-year-old female with past medical history significant for protein-calorie malnutrition, dysphagia, anemia, metastatic lymphocytic lymphoma, metastases to the brain, admitted with dysphagia, inability to swallow and difficult to arouse. Now, the patient is much awake, alert, is still n.p.o. because difficulty in swallowing. Sinus tachycardia is multifactorial secondary to underlying malignant condition and anemia. The patient started propranolol IV, but against the protocol, in 3 hours switched over to 5 mg of Lopressor. The patient is currently getting Lopressor 5 mg. Once the patient starts p.o., we will switch over to p.o. We will follow with you. Once the patient start eating, we will increase *------* supplement of Ensure pudding, but now the patient is n.p.o. We will follow with you. Overall, the patient's condition is critical. termination clerk prognosis is extremely guarded. Monitor hemoglobin. If hemoglobin goes below 8, consider packed RBC transfusion to prevent symptomatic tachycardia. Since the patient is n.p.o., we will supplement 1 K-rider as today it is 3.7 to replenish the potassium. Thank you Dr. Bynum for providing the opportunity in taking care of the patient. Waylon Perez MD [facility] # [id number]
[2017-06-08] MEDS ORDERED: levETIRAcetam 500 MG in Sodium Chloride 0.9% 100 ML IV SCH (22:00)
[2017-06-08] MEDS: MethylPREDNISolone 40 mg Vial IVP SCH (22:07)
[2017-06-08] MEDS: levETIRAcetam 500mg IVPB 500 MG/100 ML BAG IVPB SCH (22:08)
--- NOTE | 2017-06-08 23:51 | PN ---
DATE: 06/08/2017 SUBJECTIVE: Patient in bed, in no acute distress, nontoxic and patient is seen earlier this morning, had no fevers, no chills. PHYSICAL EXAMINATION VITAL SIGNS: Temperature is 98, blood pressure is 120/70, respiratory rate 16. HEENT: Unremarkable. NECK: Supple. LUNGS: Decreased breath sounds. HEART: Normal S1 and S2. ABDOMEN: Soft. LABORATORY DATA: Reveals a white count of 7.1, hemoglobin of 8. BUN of 20 and creatinine of 0.8. Review of the orders reveals the patient to be on prednisone and off of antibiotics. Dr. Petar Schwartz's communication report is noted. ASSESSMENT AND PLAN: This 66-year-old female with systemic inflammatory response syndrome with acute appendicitis, sinusitis, bilateral otomastoiditis in the patient with status post chemotherapy, leukopenia, currently off of antibiotics. Patient is seen early this morning. Overall prognosis is poor for this patient. Jose Suh MD
[2017-06-09 06:28] LABS: HEMOGLOBIN 8.7 gm/dL (12.0-16.0); MEAN CELL VOLUME 90.6 fL (80.0-105.0); MEAN CORPUSCULAR HEMOGLOBIN 29.2 pg (25.0-35.0); MEAN CORPUSCULAR HGB CONC 32.2 g/dl (31.0-37.0); MEAN PLATELET VOLUME 8.4 fl (7.0-11.0); PLATELET COUNT 248 10^3/uL (120.0-450.0); RBC 2.98 10^6/uL (3.5-6.1); RED CELL DISTRIBUTION WIDTH 14.3 % (11.5-14.5); WHITE BLOOD COUNT 7.3 10^3/ul (4.5-11.0)
[2017-06-09 07:04] LABS: ALB/GLOB RATIO 1.3 (1.1-1.8); ALBUMIN 2.9 g/dL (3.0-4.8); ALT/SGPT 73 U/L (7-56); AST/SGOT 47 U/L (15-39); BLOOD UREA NITROGEN 20 mg/dL (7-21); GFR AFRICAN-AMERICAN > 60; GFR NON-AFRICAN AMERICAN > 60
[2017-06-09] MEDS: Labetalol 5 mg/ml Inj 20ML IVP SCH ×3 (09:21→17:24)
[2017-06-09] MEDS: MethylPREDNISolone 40 mg Vial IVP SCH (09:22)
[2017-06-09 10:31] LABS: BAND 1 % (0-2); LYMPHOCYTE 54 % (22.0-35.0); MONOCYTE 7 % (1.0-6.0); NEUTROPHIL 38 % (50.0-70.0); PLATELET ESTIMATE NORMAL (NORMAL)
[2017-06-09] MEDS: Dextrose 5%/0.45% NS 1,000 ML IV SCH (10:39)
[2017-06-09] MEDS: levETIRAcetam 500mg IVPB 500 MG/100 ML BAG IVPB SCH (10:43)
[2017-06-09] MEDS: Enoxaparin 30 mg Syringe SC SCH (10:44)
--- NOTE | 2017-06-09 13:10 | CP.PCM.PN ---
Subjective - Date & Time of Evaluation Date of Evaluation: 06/09/17 Time of Evaluation: 13:05 - Subjective Subjective: PGY-[address] Bynum Pt was lethargic today. Arousable per voice/light touch but cannot maintain conversation Per manager nursing, pt finished 8oz pudding, drink thickened liquid Objective - Vital Signs/Intake and Output Vital Signs (last 24 hours): Temp Pulse Resp BP Pulse Ox 98.9 F 90 20 154/92 H 96 06/09/17 06:00 06/09/17 09:21 06/09/17 06:00 06/09/17 09:21 06/09/17 06:00 Intake and Output: 06/09/17 06/09/17 06:59 18:59 Intake Total 0 Balance 0 - Medications Medications: Current Medications Acetaminophen (Tylenol 325mg Tab) 650 mg PO Q6H PRN PRN Reason: Pain, moderate (4-7) Last Admin: 06/01/17 14:40 Dose: 650 mg Amlodipine Besylate (Norvasc) 10 mg PO DAILY [facility] Last Admin: 06/08/17 10:03 Dose: Not Given Docusate Sodium (Colace) 100 mg PO TID [facility] Last Admin: 06/08/17 13:32 Dose: Not Given Enoxaparin Sodium (Lovenox) 30 mg SC DAILY [facility] PRN Reason: Protocol Last Admin: 06/09/17 10:44 Dose: 30 mg Famotidine (Pepcid) 20 mg PO DAILY [facility] Last Admin: 06/06/17 10:00 Dose: Not Given Hydralazine HCl (Apresoline) 25 mg PO QID [facility] Last Admin: 06/08/17 13:32 Dose: Not Given Dextrose/Sodium Chloride (Dextrose 5%/0.45% Ns 1000 Ml) 1,000 mls @ 60 mls/hr IV .[id number] [facility] Last Admin: 06/09/17 10:39 Dose: 60 mls/hr Levetiracetam (Keppra 500mg Ivpb) 500 mg in 100 mls @ 200 mls/hr IVPB Q12 [facility] Last Admin: 06/09/17 10:43 Dose: 200 mls/hr Labetalol HCl (Trandate) 20 mg IVP TID [facility] Last Admin: 06/09/17 09:21 Dose: 20 mg Lamotrigine (Lamictal) 200 mg PO BID [facility] Last Admin: 06/08/17 10:04 Dose: Not Given Levetiracetam (Keppra) 500 mg PO BID [facility] Last Admin: 06/08/17 10:04 Dose: Not Given Lisinopril (Zestril) 20 mg PO DAILY [facility] Last Admin: 06/08/17 10:04 Dose: Not Given Methylphenidate HCl (Ritalin) 5 mg PO DAILY [facility] Last Admin: 06/08/17 10:04 Dose: Not Given Methylprednisolone (Solu-Medrol) 20 mg IVP Q12 [facility] Last Admin: 06/09/17 09:22 Dose: 20 mg Potassium Chloride (K-Dur 20 Meq Er Tab) 20 meq PO BRK [facility] Last Admin: 06/08/17 08:46 Dose: Not Given Prednisone (Prednisone Tab) 20 mg PO DAILY [facility] Stop: 06/14/17 10:01 - Labs Labs: 06/09/17 06:15 06/09/17 06:15 PT 10.6 Seconds (9.9-11.8) 05/31/17 11:30 INR 0.98 (0.93-1.08) 05/31/17 11:30 APTT 24.1 Seconds (23.7-30.8) 05/31/17 11:30 - Constitutional Appears: No Acute Distress, Cachectic, Chronically Ill - Head Exam Head Exam: ATRAUMATIC, NORMAL INSPECTION, NORMOCEPHALIC - Eye Exam Eye Exam: EOMI, Normal appearance, PERRL. absent: Scleral icterus Pupil Exam: NORMAL ACCOMODATION - ENT Exam ENT Exam: Mucous Membranes Moist - Respiratory Exam Respiratory Exam: Clear to Ausculation Bilateral. absent: Rales, Rhonchi, Wheezes - Cardiovascular Exam Cardiovascular Exam: REGULAR RHYTHM, +S1, +S2 Additional comments: port intact, no erythema - GI/Abdominal Exam GI & Abdominal Exam: Soft. absent: Guarding, Rigid, Tenderness - Neurological Exam Additional comments: lethargic, arousable to voice/light - Psychiatric Exam Psychiatric exam: Normal Affect, Normal Mood - Skin Skin Exam: Dry, Warm Assessment and Plan - Assessment and Plan (Free Text) Plan: 66 AA F, from [facility] rehab, had fever of 102.5, admitted for AMS, sepsis, dehydration. Pt has PMH sign for Stage IV Lymphoma w mets to R [place] (temporal bone area) leading to trigeminal neuralgia & dysphagia, s/ p radiation R-CVP, and chronic pancytopenia. At baseline, pt is B&B incontinent. Pt has persistent sinus tachycardia requiring med changes. Pt has fluctuating mentation through the day, more alert around noon, able to intereact with family, more disoriented/lethargic at night, which is baseline per family Pt refuses all PO food occassionally - changed seizure med to IV - keep solumedrol iv Failure to thrive - Hx lethargy and dysphagia - refuse PEG placement - Palliative consult met with family. DNR./DNI/ no artificial feeding Sinus tachycardia - cardiac enzyme negative - Keep sbp between 130-140 - likely chronic problem. No further workup per Dr. Bynum. Continue to observe on remote tele and vs measure - Amlodipine 10, hydralazine 25 QID, Labetalol 20 IV TID Stage IV small cell lymphocytic lymphoma, metastatic to brain pressing on the trigeminal nerve and lateral alma s/p chemo, h/o seizure disorders Disphagia Seizure Hx - Keppra 500 BID IV - Bone Scan (06/05) - No evidence of bony mets. Degenerative changes in appendicular skeleton - Swallow eval reveals worsening of dysphagia. - MRI of head 2 months ago was without contrast - Will defer LP at this time giving that patient already has cancer. - MRI with/w/o contrast, c spine and thoracic MRI negative for mets - PT/OT eval - Continue to monitor and treat electrolytes. - Avoid sedatives - If positive brain mets, will consider intrathecal streoid Pancytopenia - Prednisone 5 daily - Leucopenia = sepsis vs lymphoma - anemia = stable at 10 SIRS. Doubt Sepsis - Afebile, WBC 2.5, lactate 1.2, procal 1.03 (high, in the setting of BATSHEVA) - CT-chest w/o contrast: unremarkable - Observe off ANX. 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 Disposition - spouse and daughter attempt to get medicaid for patient - Will transfer to [facility]. - Daughter is POA - financial; of pt is medical POA S/R/D/w Dr. Bynum
--- NOTE | 2017-06-09 13:56 | PN ---
DATE: 06/09/2017 SUBJECTIVE: A 66-year-old black female with lymphoma, status post [employer] mets, toxic metabolic encephalopathy, seizure disorder, hypertension, and tachyarrhythmia. The patient is more awake, more alert, more conversant today. Hopefully, she will progress with physical therapy and occupational therapy. Family is looking for the long-term placement and we are finishing a course of antibiotics for her sepsis. PHYSICAL EXAMINATION: VITAL SIGNS: Stable. She is afebrile. LUNGS: Clear to auscultation and percussion. The patient has a chronic cough, but CT and chest x-rays were normal. LABORATORY DATA: Unremarkable. She had been hypernatremic. She is normonatremic at this point. Her white count initially was neutropenic. She is back to normal white count at this point. ASSESSMENT AND PLAN: Plan is to continue and finish the course of IV antibiotics. Psychiatry evaluation, status post Neurology evaluation and transfer to long-term care, when appropriate. Alex Butt MD
--- NOTE | 2017-06-09 13:56 | PN ---
DATE: 06/09/2017 SUBJECTIVE: The patient is seen lying in bed. She is lethargic. She is awake. As per the nursing staff, has not been really eating. PHYSICAL EXAMINATION: GENERAL: Cachectic elderly lady, lying in bed. VITAL SIGNS: Blood pressure 154/92, heart rate 90, respiratory rate 20, and temperature 98.1. HEENT: Normocephalic, atraumatic. NECK: Supple, no JVD. LUNGS: Bilateral equal air entry, no rales. CARDIAC: S1, S2, regular rate and rhythm, no murmur, no rubs. ABDOMEN: Soft, nondistended, nontender, bowel sounds are present. EXTREMITIES: No lower extremity edema. LABORATORY DATA: WBC 7.3, hemoglobin 8.7, hematocrit 27, platelets 248. Sodium 140, potassium 4.1, chloride 106, CO2 of 28, BUN 20, creatinine 0.8, glucose 134, calcium 9.0, AST 47, ALT 43, albumin 2.9. CURRENT MEDICATIONS: The patient is not taking any p.o. meds. She is on D5 half normal saline at 60; Keppra 500 IV piggyback, Lovenox 30 mg subQ; Solu-Medrol 20 mg IV push q. 12; labetalol 20 IV t.i.d., Tylenol. ASSESSMENT: 1. Resolved acute kidney injury. 2. Resolved hyponatremia. 3. Resolved hypokalemia. 4. Metastatic small cell lymphocytic lymphoma with brain metastasis. 5. History of seizure disorder. 6. History of dysphagia. 7. Anemia. PLAN: 1. Continue IV fluids. 2. Continue IV labetalol. 3. Palliative care evaluation. Alexa Camarillo MD
--- NOTE | 2017-06-09 14:23 | CP.PCM.CON ---
History of Present Illness - History of Present Illness History of Present Illness: shortly pt is 66 AAF, from [facility] subacute rehab, was sent to [facility] after pt had fever of 102.5, admitted for AMS, sepsis, dehydration. pt has Stage IV Lymphoma w mets, s/p radiation R-CVP, and chronic pancytopenia. psych consult was called for confusion, depression. pt was seen and examined, discussed with RNs. pt presented to be alert, pt knows the circumstances of her admission to the hospital, pt knows the name of the hospital. pt was very pleasant, but appeared to be weak, has hoarse voice. pt said that at times she feels very depressed, denied thoughts of harming self or others. pt said that her appetite is poor, reported that she has difficulties to fall and stay asleep. when pt was asked if she wants to have medication to sleep better as well to have a good night sleep and improve her mood, pt said "I think it will be a good idea". this wrier educated pt about remeron at hs, pt willing to take it. pt denied h/o mental illness. pt denied psychotic symptoms. pt does not present to be psychotic. as per previous h/o, pt was not evaluated by psychiatrist in the past. labs reviewed, vitals reviewed med list reviewed. MSE: alert, oriented in self, place, wears wig which is kind of big for her, intermitted eye contact, speech was low volume, underproductive, mood "at times I feel depressed", affect was constricted, mood congruent. thought process seems to be goal directed, thought content: denied hallucinations, denied paranoid ideations, does not appear to be psychotic, as per staff pt confused at times, pt denied thoughts of harming self or others, i/j are fair, impulses well controlled. Impression: r/o mood disorder due to a [facility] delirium (pt has multiple medical issues and it is understandable pt is confused , pt has IV lymphoma and mets, dehydration, sepsis) Plan: continue current mng will implement remeron 7.5mg hs for sleep, depression, appetite will f/u on pt Past Patient History - Infectious Disease Hx of Infectious Diseases: None - Past Medical History & Family History Past Medical History?: Yes - Past Social History Smoking Status: Never Smoked Home Situation {Lives}: Retirement - CARDIAC Hx Cardiac Disorders: Yes - PULMONARY Hx Chronic Obstructive Pulmonary Disease (COPD): Yes - NEUROLOGICAL Hx Neurological Disorder: Yes (BRAIN AND NECK MASS-BRAIN CA WITH RADIATION) HX Cerebrovascular Accident: No Hx Dizziness: Yes (SYNCOPE) - HEENT Hx HEENT Problems: Yes Hx Cataracts: Yes (bilateral) - RENAL Hx Pyelonephritis: Yes Hx Renal Failure: No - ENDOCRINE/METABOLIC Hx Diabetes Mellitus Type 1: No Hx Diabetes Mellitus Type 2: No Hx Hypothyroidism: No - HEMATOLOGICAL/ONCOLOGICAL Hx Cancer: Yes (lynmphoma with brain mets) - INTEGUMENTARY Hx Dermatological Problems: No - MUSCULOSKELETAL/RHEUMATOLOGICAL Hx Falls: Yes - GASTROINTESTINAL Hx Gastroesophageal Reflux: Yes - GENITOURINARY/GYNECOLOGICAL Hx Genitourinary Disorders: Yes (HYSTERECTOMY) Hx Incontinence: Yes - PSYCHIATRIC Hx Psychophysiologic Disorder: Yes Hx Anxiety: Yes Hx Substance Use: No - SURGICAL HISTORY Hx Hysterectomy: Yes Other/Comment: Port in R chest - ANESTHESIA Hx Anesthesia: Yes Hx Anesthesia Reactions: No Hx Malignant Hyperthermia: No Meds Home Medications: Home Medication List Medication Instructions Recorded Confirmed Type Metoprolol Succinate [Toprol XL] 100 mg PO DAILY tab 06/05/17 Rx predniSONE [predniSONE Tab] 5 mg PO DAILY tab 06/05/17 Rx Allergies/Adverse Reactions: Allergies Allergy/AdvReac Type Severity Reaction Status Date / Time No Known Allergies Allergy Verified 05/31/17 17:59 - Medications Medications: Current Medications Acetaminophen (Tylenol 325mg Tab) 650 mg PO Q6H PRN PRN Reason: Pain, moderate (4-7) Last Admin: 06/01/17 14:40 Dose: 650 mg Amlodipine Besylate (Norvasc) 10 mg PO DAILY [facility] Last Admin: 06/08/17 10:03 Dose: Not Given Docusate Sodium (Colace) 100 mg PO TID [facility] Last Admin: 06/08/17 13:32 Dose: Not Given Enoxaparin Sodium (Lovenox) 30 mg SC DAILY [facility] PRN Reason: Protocol Last Admin: 06/09/17 10:44 Dose: 30 mg Famotidine (Pepcid) 20 mg PO DAILY [facility] Last Admin: 06/06/17 10:00 Dose: Not Given Hydralazine HCl (Apresoline) 25 mg PO QID [facility] Last Admin: 06/08/17 13:32 Dose: Not Given Dextrose/Sodium Chloride (Dextrose 5%/0.45% Ns 1000 Ml) 1,000 mls @ 60 mls/hr IV .[id number] [facility] Last Admin: 06/09/17 10:39 Dose: 60 mls/hr Levetiracetam (Keppra 500mg Ivpb) 500 mg in 100 mls @ 200 mls/hr IVPB Q12 [facility] Last Admin: 06/09/17 10:43 Dose: 200 mls/hr Labetalol HCl (Trandate) 20 mg IVP TID [facility] Last Admin: 06/09/17 13:39 Dose: 20 mg Lamotrigine (Lamictal) 200 mg PO BID [facility] Last Admin: 06/08/17 10:04 Dose: Not Given Levetiracetam (Keppra) 500 mg PO BID [facility] Last Admin: 06/08/17 10:04 Dose: Not Given Lisinopril (Zestril) 20 mg PO DAILY [facility] Last Admin: 06/08/17 10:04 Dose: Not Given Methylphenidate HCl (Ritalin) 5 mg PO DAILY [facility] Last Admin: 06/08/17 10:04 Dose: Not Given Methylprednisolone (Solu-Medrol) 20 mg IVP Q12 [facility] Last Admin: 06/09/17 09:22 Dose: 20 mg Mirtazapine (Remeron) 7.5 mg PO HS [facility] Potassium Chloride (K-Dur 20 Meq Er Tab) 20 meq PO BRK [facility] Last Admin: 06/08/17 08:46 Dose: Not Given Prednisone (Prednisone Tab) 20 mg PO DAILY [facility] Stop: 06/14/17 10:01 Results - Vital Signs Recent Vital Signs: Last Vital Signs Temp 98.9 F 06/09/17 06:00 Pulse 86 06/09/17 13:39 Resp 20 06/09/17 06:00 BP 160/90 H 06/09/17 13:39 Pulse Ox 96 06/09/17 06:00 - Labs Result Diagrams: 06/09/17 06:15 06/09/17 06:15 Labs: Laboratory Results - last 24 hr 06/09/17 06/09/17 06/09/17 06:15 06:15 07:29 WBC 7.3 RBC 2.98 L Hgb 8.7 L Hct 27.0 L MCV 90.6 MCH 29.2 MCHC 32.2 RDW 14.3 Plt Count 248 MPV 8.4 Neutrophils % (Manual) 38 L Band Neutrophils % 1 Lymphocytes % (Manual) 54 H Monocytes % (Manual) 7 H Platelet Evaluation Normal Sodium 140 Potassium 4.1 Chloride 106 Carbon Dioxide 28 Anion Gap 10 BUN 20 Creatinine 0.8 Est GFR ( Amer) > 60 Est GFR (Non-Af Amer) > 60 POC Glucose (mg/dL) 145 H Random Glucose 134 H Calcium 9.0 Total Bilirubin 0.5 AST 47 H ALT 73 H Alkaline Phosphatase 108 Total Protein 5.2 L Albumin 2.9 L Globulin 2.3 Albumin/Globulin Ratio 1.3
--- NOTE | 2017-06-09 15:49 | PN ---
DATE: 06/09/2017 REASON FOR CONSULTATION: Followup persistent sinus tachycardia, cardiac evaluation. SUBJECTIVE: The patient is a 66-year-old female. The patient denies any chest pain, shortness of breath, any palpitation, lying flat on the bed. She is still not able to swallow food completely. PHYSICAL EXAMINATION: As follows; VITAL SIGNS: Temperature afebrile, heart rate 91, blood pressure 142/87. HEENT: PERRLA. Extraocular muscles intact. NECK: Supple. No carotid bruit or thyromegaly. CHEST: Clear to auscultation. HEART: S1 and S2, regular. ABDOMEN: Soft. EXTREMITIES: Clubbing and cyanosis negative. LABORATORY DATA: Blood workup as follows: WBC 7.2, hemoglobin *------*, hematocrit 27.0, and platelet count 248. Chemistry shows sodium of 140, potassium 4.1, chloride 106, carbon dioxide 28, anion gap 15, BUN 20, creatinine is 0.8. Total troponin 5.2, albumin 2.9, albumin-globulin ratio 1.3. IMPRESSION: Protein-calorie malnutrition which was not present on admission; anemia; sinus tachycardia, improved on IV Lopressor; dysphagia; metastatic lymphocytic lymphoma, and metastasis to the brain. RECOMMENDATION: Continue IV Lopressor until the patient starts p.o. Once the patient starts p.o., we will change to p.o. beta-harman. Overall, the patient's condition is critical. 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 If dysphagia is a problem, consider PEG placement. Once the patient starts p.o., we will switch over to p.o. beta-harman. Discussed with nursing staff taking care of the patient today. Still the patient is not able to tolerate p.o., she tries to keep in her mouth and unable to swallow. For now, continue IV beta-harman. Thank you Dr. Bynum for providing the opportunity in taking care of this patient. We will follow with you. Waylon Perez MD
--- NOTE | 2017-06-09 15:56 | CP.PCM.PN ---
Subjective - Date & Time of Evaluation Date of Evaluation: 06/09/17 Time of Evaluation: 11:50 - Subjective Subjective: Comfortable in bed, no fevers, not in distress. Objective - Vital Signs/Intake and Output Vital Signs (last 24 hours): Temp Pulse Resp BP Pulse Ox 98.4 F 91 H 20 156/88 H 99 06/08/17 16:00 06/09/17 05:31 06/08/17 16:00 06/08/17 17:07 06/08/17 16:00 Intake and Output: 06/09/17 06/09/17 06:59 18:59 Intake Total 0 Balance 0 - Medications Medications: Current Medications Acetaminophen (Tylenol 325mg Tab) 650 mg PO Q6H PRN PRN Reason: Pain, moderate (4-7) Last Admin: 06/01/17 14:40 Dose: 650 mg Amlodipine Besylate (Norvasc) 10 mg PO DAILY [facility] Last Admin: 06/08/17 10:03 Dose: Not Given Docusate Sodium (Colace) 100 mg PO TID [facility] Last Admin: 06/08/17 13:32 Dose: Not Given Enoxaparin Sodium (Lovenox) 30 mg SC DAILY [facility] PRN Reason: Protocol Last Admin: 06/08/17 10:03 Dose: 30 mg Famotidine (Pepcid) 20 mg PO DAILY [facility] Last Admin: 06/06/17 10:00 Dose: Not Given Hydralazine HCl (Apresoline) 25 mg PO QID [facility] Last Admin: 06/08/17 13:32 Dose: Not Given Dextrose/Sodium Chloride (Dextrose 5%/0.45% Ns 1000 Ml) 1,000 mls @ 60 mls/hr IV .[id number] [facility] Last Admin: 06/08/17 16:41 Dose: 60 mls/hr Levetiracetam (Keppra 500mg Ivpb) 500 mg in 100 mls @ 200 mls/hr IVPB Q12 [facility] Last Admin: 06/08/17 22:08 Dose: 200 mls/hr Labetalol HCl (Trandate) 20 mg IVP TID [facility] Last Admin: 06/08/17 17:07 Dose: 20 mg Lamotrigine (Lamictal) 200 mg PO BID [facility] Last Admin: 06/08/17 10:04 Dose: Not Given Levetiracetam (Keppra) 500 mg PO BID [facility] Last Admin: 06/08/17 10:04 Dose: Not Given Lisinopril (Zestril) 20 mg PO DAILY [facility] Last Admin: 06/08/17 10:04 Dose: Not Given Methylphenidate HCl (Ritalin) 5 mg PO DAILY [facility] Last Admin: 06/08/17 10:04 Dose: Not Given Methylprednisolone (Solu-Medrol) 20 mg IVP Q12 [facility] Last Admin: 06/08/17 22:07 Dose: 20 mg Potassium Chloride (K-Dur 20 Meq Er Tab) 20 meq PO BRK [facility] Last Admin: 06/08/17 08:46 Dose: Not Given Prednisone (Prednisone Tab) 20 mg PO DAILY [facility] Stop: 06/14/17 10:01 - Labs Labs: 06/09/17 06:15 06/09/17 06:15 PT 10.6 Seconds (9.9-11.8) 05/31/17 11:30 INR 0.98 (0.93-1.08) 05/31/17 11:30 APTT 24.1 Seconds (23.7-30.8) 05/31/17 11:30 - Constitutional Appears: Non-toxic, No Acute Distress - Head Exam Head Exam: NORMAL INSPECTION - Neck Exam Neck Exam: absent: Meningismus - Respiratory Exam Respiratory Exam: Decreased Breath Sounds - Cardiovascular Exam Cardiovascular Exam: +S1, +S2 - GI/Abdominal Exam GI & Abdominal Exam: Soft. absent: Tenderness Assessment and Plan - Assessment and Plan (Free Text) Plan: Assessment S/P systemic inflammatory response syndrome, no source of sepsis identified probable toxic-metabolic encephalopathy from hypernatremia, clinically improving history of acute arenas-sinusitis with associated bilateral otomastoiditis history of ventilator-dependent respiratory failure from healthcare-associated pneumonia history of chemotherapy-associated neutropenia lymphoma on chemo and radiotherapy asthma history of left pyelonephritis seizures cataracts asthma Plan continue to monitor off antibiotics since she is at risk for nosocomial infections
[2017-06-10] MEDS: MethylPREDNISolone 40 mg Vial IVP SCH ×3 (01:00→21:26)
[2017-06-10] MEDS: levETIRAcetam 500mg IVPB 500 MG/100 ML BAG IVPB SCH ×3 (01:01→21:24)
[2017-06-10] MEDS: Dextrose 5%/0.45% NS 1,000 ML IV SCH (01:01)
[2017-06-10 06:41] LABS: ALB/GLOB RATIO 1.2 (1.1-1.8); ALBUMIN 3.2 g/dL (3.0-4.8); ALT/SGPT 80 U/L (7-56); AST/SGOT 61 U/L (15-39); BLOOD UREA NITROGEN 14 mg/dL (7-21); CALCIUM 9.2 mg/dL (8.4-10.5); GFR AFRICAN-AMERICAN > 60; GFR NON-AFRICAN AMERICAN > 60
[2017-06-10 07:21] LABS: EOS % 0.2 % (1.5-5.0); GRAN % 50.9 % (50.0-68.0); HEMOGLOBIN 9.4 gm/dL (12.0-16.0); LYMPH # 2.3 (1.2-3.4); LYMPH % 41.6 % (22.0-35.0); MEAN CELL VOLUME 90.8 fL (80.0-105.0); MEAN CORPUSCULAR HEMOGLOBIN 28.9 pg (25.0-35.0); MEAN CORPUSCULAR HGB CONC 31.9 g/dl (31.0-37.0); MEAN PLATELET VOLUME 8.7 fl (7.0-11.0); MONO # 0.4 (0.1-0.6); MONO % 7.3 % (1.0-6.0); PLATELET COUNT 289 10^3/uL (120.0-450.0); RBC 3.25 10^6/uL (3.5-6.1); RED CELL DISTRIBUTION WIDTH 14.2 % (11.5-14.5); WHITE BLOOD COUNT 5.5 10^3/ul (4.5-11.0)
[2017-06-10] MEDS: Enoxaparin 30 mg Syringe SC SCH (09:00)
[2017-06-10] MEDS ORDERED: Potassium Chloride 20 mEq/15 ml LIQ UD PO STA (10:56)
--- NOTE | 2017-06-10 11:11 | CP.PCM.PN ---
Subjective - Date & Time of Evaluation Date of Evaluation: 06/10/17 Time of Evaluation: 11:06 - Subjective Subjective: Follow up Nephrology Consultation Note covering for Dr Camarillo Assessment: Acute Kidney Injury (N17.9) resolved HTN, stage 4 lymphoma, anemia, mild hypokalemia, seizure disorder, delirium Plan Hypertension control with meds as ordered. Patient not taking PO meds. will add clonidine patch supplement electrolytes Glycemic control Further work up for as per primary team Thanks for allowing me to participate in care of your patient. Will follow patient with you. Please call if any Qs Dr Claudio Black Office: [phone] Subjective: Noted events overnight. Patients unable to provide much hx. she is awake though. has hoarse voice, speaking in barely audible tone. Physical Examination: General Appearance: Comfortable, in no acute respiratory distress Vitals reviewed and noted as below Lungs: Normal respiratory rate/effort. Breath sounds bilateral equal and clear Heart: Normal rate. s1s2 normal. No rub or gallop. Extremities: no edema. Neurological: Patient is awake but not much communicative Skin: Warm and dry. Normal turgor. No rash. Palpitation: Normal elasticity for age Abdomen: Abdomen is soft. Bowel sounds +. There is no abdominal tenderness, no guarding/rigidity or organomegaly : kidney or bladder not palpable Labs/imaging reviewed. Past medical history, past surgical history, family history, social history, allergy reviewed Objective - Vital Signs/Intake and Output Vital Signs (last 24 hours): Temp Pulse Resp BP Pulse Ox 98.4 F 81 20 160/90 H 100 06/10/17 06:00 06/10/17 06:00 06/10/17 06:00 06/09/17 17:24 06/10/17 06:00 Intake and Output: 06/10/17 06/10/17 06:59 18:59 Intake Total 360 0 Balance 360 0 - Medications Medications: Current Medications Acetaminophen (Tylenol 325mg Tab) 650 mg PO Q6H PRN PRN Reason: Pain, moderate (4-7) Last Admin: 06/10/17 01:00 Dose: 650 mg Amlodipine Besylate (Norvasc) 10 mg PO DAILY [facility] Last Admin: 06/08/17 10:03 Dose: Not Given Clonidine HCl (Catapres Tts1 0.1 Mg/24 Hr) 1 patch TD Q7D@1000 [facility] Docusate Sodium (Colace) 100 mg PO TID [facility] Last Admin: 06/08/17 13:32 Dose: Not Given Enoxaparin Sodium (Lovenox) 30 mg SC DAILY [facility] PRN Reason: Protocol Last Admin: 06/10/17 09:00 Dose: 30 mg Famotidine (Pepcid) 20 mg PO DAILY [facility] Last Admin: 06/06/17 10:00 Dose: Not Given Hydralazine HCl (Apresoline) 25 mg PO QID [facility] Last Admin: 06/08/17 13:32 Dose: Not Given Dextrose/Sodium Chloride (Dextrose 5%/0.45% Ns 1000 Ml) 1,000 mls @ 60 mls/hr IV .[id number] [facility] Last Admin: 06/10/17 01:01 Dose: 60 mls/hr Levetiracetam (Keppra 500mg Ivpb) 500 mg in 100 mls @ 200 mls/hr IVPB Q12 [facility] Last Admin: 06/10/17 08:59 Dose: 200 mls/hr Labetalol HCl (Trandate) 20 mg IVP TID [facility] Last Admin: 06/09/17 17:24 Dose: 20 mg Lamotrigine (Lamictal) 200 mg PO BID [facility] Last Admin: 06/08/17 10:04 Dose: Not Given Levetiracetam (Keppra) 500 mg PO BID [facility] Last Admin: 06/08/17 10:04 Dose: Not Given Lisinopril (Zestril) 20 mg PO DAILY [facility] Last Admin: 06/08/17 10:04 Dose: Not Given Methylphenidate HCl (Ritalin) 5 mg PO DAILY [facility] Last Admin: 06/08/17 10:04 Dose: Not Given Methylprednisolone (Solu-Medrol) 20 mg IVP Q12 [facility] Last Admin: 06/10/17 09:00 Dose: 20 mg Mirtazapine (Remeron) 7.5 mg PO HS [facility] Last Admin: 06/10/17 01:00 Dose: 7.5 mg Potassium Chloride (K-Dur 20 Meq Er Tab) 20 meq PO BRK [facility] Last Admin: 06/08/17 08:46 Dose: Not Given Potassium Chloride (Potassium Chloride Oral Soln) 20 meq PO STAT [facility] Stop: 06/10/17 10:57 Prednisone (Prednisone Tab) 20 mg PO DAILY [facility] Stop: 06/14/17 10:01 Propranolol HCl (Inderal) 20 mg PO TID [facility] - Labs Labs: 06/10/17 06:00 06/10/17 06:00 PT 10.6 Seconds (9.9-11.8) 05/31/17 11:30 INR 0.98 (0.93-1.08) 05/31/17 11:30 APTT 24.1 Seconds (23.7-30.8) 05/31/17 11:30
--- NOTE | 2017-06-10 12:22 | PN ---
DATE: 06/10/2017 SUBJECTIVE: The patient is in bed and in no acute distress. PHYSICAL EXAMINATION: VITAL SIGNS: Temperature is 98, blood pressure is 160/90, and respiratory rate of 16. HEENT: Examination of HEENT is unremarkable. NECK: Supple. CARDIOPULMONARY: Heart exam has normal S1 and S2. LUNGS: Decreased breath sounds. ABDOMEN: Soft and nontender. LABORATORY DATA: Examination reveals a white count of 5.5, hemoglobin of 9, and platelets of 289. BUN of 14, and creatinine of 0.6. Urinalysis is noted and microbiology is noted. ASSESSMENT AND PLAN: This is a 66-year-old female with systemic inflammatory response syndrome and currently off of antibiotics and afebrile, and she is at risk for developing nosocomial infections. Jose Suh MD
--- NOTE | 2017-06-10 13:58 | PN ---
DATE: 06/10/2017 REASON FOR FOLLOWUP: Persistent sinus tachycardia, cardiac evaluation. SUBJECTIVE: The patient is awake, alert. Denies any chest pain, shortness of breath, or any palpitations. OBJECTIVE: GENERAL: Not in apparent distress. VITAL SIGNS: Afebrile, heart rate 81, blood pressure 160/90. HEENT: PERRLA intact. NECK: Supple. No carotid bruit. No thyromegaly. CHEST: Clear to auscultation. HEART: S1 and S2 regular. ABDOMEN: Soft. EXTREMITIES: Clubbing and cyanosis negative. LABORATORY DATA: Blood workup as follows. WBC 5.0, hemoglobin 9.4, hematocrit 29.6, platelet count 289. Chemistry shows sodium 130, potassium 3.5, chloride 102, carbon dioxide 20, anion gap of 4, BUN 14, and creatinine 0.6. Total protein 5.0, albumin 3.2. IMPRESSION: Protein-calorie malnutrition, improving; sinus tachycardiac, multifactorial; anemia; dysphagia; lymphocytic lymphoma, metastatic to the brain. RECOMMENDATION: Since the patient we will discontinue IV Lopressor and start p.o. propranolol 20 mg three times a day, supplement potassium. Continue DVT prophylaxis. Overall, the patient had a critical prognosis. We will follow with you. Waylon Perez MD
--- NOTE | 2017-06-10 16:58 | PN ---
DATE: 06/10/2017 SUBJECTIVE: This is a 66-year-old black female. The patient is more awake, more alert today, sitting at bedside with her family, able to sit up without much help today. Still having hoarse voice and difficulty swallowing. History of dysphagia in the past. The patient becoming more awake and alert, orientated to person and place. PHYSICAL EXAMINATION VITAL SIGNS: Stable. The patient is afebrile. Blood pressure is still difficult to control at 172/98, pulse is 85. CHEST: Clear to auscultation and percussion. HEART: Reveals sinus rhythm. LABORATORY DATA: White count is up to 5.5. She was neutropenic in the past. We will continue to arrange her medications. The patient needs to improve with her ability to sit and to transfer and also to start ambulation. Alex Butt MD
--- NOTE | 2017-06-10 20:46 | CON ---
HISTORY OF PRESENT ILLNESS: The patient is a 66-year-old female who was sent from [facility] in [facility] subacute rehab due to fever and altered mental status as well as sepsis and dehydration in context with stage IV lymphoma with mets status post radiation, right and chronic pancytopenia. Psychiatry has been following up with the patient because of the patient's confusion and depression as well as lack of appetite. I reviewed notes and met with the patient at bedside. I also reviewed with staff nurse which indicated the patient is extubated and sleeping for most of the day. I found this also to be the case during my visit this morning. The patient was difficult to arouse, but she was responsive to my repeated questioning. She is aware that she is in the hospital and she is cooperative and she indicates that she is depressed, but she is not suicidal. The patient also reports that her appetite is poor and nurse indicates that she has not been eating very much. The patient received Remeron 7.5 mg last night and reportedly slept well, however, she still seems to be sedated this morning. The patient was not aware of this medication or she was too sedated to recall that she was given a new medication; however, she denies any side effects. I reviewed the medications, indications and possible side effects and benefit for her mood and sleep as well as appetite with the patient and the patient appeared to understand. As noted, the patient is oriented to location, circumstances and year; however, she seemed to be a little disoriented regarding current months at this time. She is not hallucinating and demonstrates fair eye contact, underproductive speech with constricted affect. The patient does appear confused at times, but she is not overtly psychotic and her insight and judgment are fair. Regarding her labs and vitals, these were reviewed. Medications were also reviewed by this provider. IMPRESSION: Rule out mood disorder secondary to general medical condition, delirium. PLAN: We will continue with current management including Remeron 7.5 mg at bedtime for sleep, depression and to improve appetite and we will follow up with the patient in 2 days. If you need any more immediate consults, place a request and we will be happy to come back earlier. Floyd Fairchild MD [facility] # [id number]
[2017-06-11 07:11] LABS: BASO # 0.01 K/mm3 (0.0-2.0); BASO % 0.2 % (0.0-3.0); GRAN # 2.38 (1.4-6.5); GRAN % 39.4 % (50.0-68.0); HEMOGLOBIN 10.7 gm/dL (12.0-16.0); LYMPH % 49.3 % (22.0-35.0); MEAN CELL VOLUME 90.2 fL (80.0-105.0); MEAN CORPUSCULAR HEMOGLOBIN 29.1 pg (25.0-35.0); MEAN CORPUSCULAR HGB CONC 32.2 g/dl (31.0-37.0); MEAN PLATELET VOLUME 8.7 fl (7.0-11.0); MONO # 0.7 (0.1-0.6); MONO % 11.1 % (1.0-6.0); PLATELET COUNT 323 10^3/uL (120.0-450.0); RBC 3.68 10^6/uL (3.5-6.1); RED CELL DISTRIBUTION WIDTH 14.3 % (11.5-14.5)
[2017-06-11 07:48] LABS: ALB/GLOB RATIO 1.3 (1.1-1.8); ALBUMIN 3.5 g/dL (3.0-4.8); ALT/SGPT 81 U/L (7-56); AST/SGOT 59 U/L (15-39); BLOOD UREA NITROGEN 14 mg/dL (7-21); GFR AFRICAN-AMERICAN > 60; GFR NON-AFRICAN AMERICAN > 60
[2017-06-11 08:02] LABS: CALCIUM 9.9 mg/dL (8.4-10.5)
[2017-06-11] MEDS: levETIRAcetam 500mg IVPB 500 MG/100 ML BAG IVPB SCH ×2 (09:08→21:26)
[2017-06-11] MEDS: Enoxaparin 30 mg Syringe SC SCH (09:08)
[2017-06-11] MEDS: Dextrose 5%/0.45% NS 1,000 ML IV SCH (09:12)
--- NOTE | 2017-06-11 10:12 | PN ---
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 The patient continues to be tachycardic and hypertensive at 189/108, had a heart rate of 80, temperature 99.3. The patient is on IV antibiotics. She had recently been septic and neutropenic but she has improved. Her cultures are negative. She is starting to become more awake and alert. She was seen by Neurology who felt that she had she had toxic metabolic encephalopathy. She was seen by psychiatry at that point when she was starting to improve. She is doing well. We will continue physical therapy and occupational therapy. 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 PLAN: Continue physical therapy, occupational therapy and IV antibiotics. Alex Butt MD
--- NOTE | 2017-06-11 10:36 | CP.PCM.PN ---
Subjective - Date & Time of Evaluation Date of Evaluation: 06/11/17 Time of Evaluation: 10:34 - Subjective Subjective: Follow up Nephrology Consultation Note covering for Dr Camarillo Assessment: Acute Kidney Injury (N17.9) resolved HTN uncontrolled, stage 4 lymphoma, anemia, mild hypokalemia, seizure disorder, delirium Plan Hypertension control with meds as ordered. Patient able to take PO meds now as per RN. will resume her norvasc and lisinopril. pt also started on clonidine patch supplement electrolytes as ordered K rider Glycemic control Further work up for as per primary team Thanks for allowing me to participate in care of your patient. Dr Camarillo will follow patient from tomorrow. Please call if any Qs Dr Claudio Black Office: [phone] Subjective: Noted events overnight. Patients unable to provide much hx except c/ o Rt leg pain. she is awake though. has hoarse voice, speaking in barely audible tone. Physical Examination: General Appearance: Comfortable, in no acute respiratory distress Vitals reviewed and noted as below Lungs: Normal respiratory rate/effort. Breath sounds bilateral equal and clear Heart: Normal rate. s1s2 normal. No rub or gallop. Extremities: no edema. Neurological: Patient is awake follow commands, remains disoriented Skin: Warm and dry. Normal turgor. No rash. Palpitation: Normal elasticity for age Abdomen: Abdomen is soft. Bowel sounds +. There is no abdominal tenderness, no guarding/rigidity or organomegaly : kidney or bladder not palpable Labs/imaging reviewed. Past medical history, past surgical history, family history, social history, allergy reviewed Objective - Vital Signs/Intake and Output Vital Signs (last 24 hours): Temp Pulse Resp BP Pulse Ox 99.3 F 79 18 189/108 H 100 06/10/17 18:00 06/11/17 06:00 06/10/17 18:00 06/10/17 18:00 06/10/17 18:00 Intake and Output: 06/11/17 06/11/17 06:59 18:59 Intake Total 330 Balance 330 - Medications Medications: Current Medications Acetaminophen (Tylenol 325mg Tab) 650 mg PO Q6H PRN PRN Reason: Pain, moderate (4-7) Last Admin: 06/10/17 01:00 Dose: 650 mg Amlodipine Besylate (Norvasc) 10 mg PO DAILY [facility] Last Admin: 06/08/17 10:03 Dose: Not Given Amlodipine Besylate (Norvasc) 10 mg PO DAILY [facility] Clonidine HCl (Catapres-Tts2 0.2 Mg/24 Hr) 1 patch TD Q7D@1000 [facility] Last Admin: 06/10/17 16:37 Dose: 1 patch Docusate Sodium (Colace) 100 mg PO TID [facility] Last Admin: 06/08/17 13:32 Dose: Not Given Enoxaparin Sodium (Lovenox) 30 mg SC DAILY [facility] PRN Reason: Protocol Last Admin: 06/11/17 09:08 Dose: 30 mg Famotidine (Pepcid) 20 mg PO DAILY [facility] Last Admin: 06/06/17 10:00 Dose: Not Given Hydralazine HCl (Apresoline) 25 mg PO QID [facility] Last Admin: 06/08/17 13:32 Dose: Not Given Dextrose/Sodium Chloride (Dextrose 5%/0.45% Ns 1000 Ml) 1,000 mls @ 60 mls/hr IV .[id number] [facility] Last Admin: 06/11/17 09:12 Dose: 60 mls/hr Levetiracetam (Keppra 500mg Ivpb) 500 mg in 100 mls @ 200 mls/hr IVPB Q12 [facility] Last Admin: 06/11/17 09:08 Dose: 200 mls/hr Potassium Chloride (Potassium Chloride 10 Meq/100 Ml) 10 meq in 100 mls @ 100 mls/hr IVPB Q2H [facility] Stop: 06/11/17 16:44 Last Admin: 06/11/17 10:08 Dose: 100 mls/hr Labetalol HCl (Trandate) 20 mg IVP TID [facility] Last Admin: 06/09/17 17:24 Dose: 20 mg Lamotrigine (Lamictal) 200 mg PO BID [facility] Last Admin: 06/08/17 10:04 Dose: Not Given Levetiracetam (Keppra) 500 mg PO BID [facility] Last Admin: 06/08/17 10:04 Dose: Not Given Lisinopril (Zestril) 20 mg PO DAILY [facility] Last Admin: 06/08/17 10:04 Dose: Not Given Lisinopril (Zestril) 20 mg PO DAILY [facility] Methylphenidate HCl (Ritalin) 5 mg PO DAILY [facility] Last Admin: 06/08/17 10:04 Dose: Not Given Mirtazapine (Remeron) 7.5 mg PO HS [facility] Last Admin: 06/10/17 21:26 Dose: 7.5 mg Potassium Chloride (K-Dur 20 Meq Er Tab) 20 meq PO BRK [facility] Last Admin: 06/08/17 08:46 Dose: Not Given Prednisone (Prednisone Tab) 20 mg PO DAILY [facility] Stop: 06/14/17 10:01 Propranolol HCl (Inderal) 20 mg PO TID [facility] Last Admin: 06/11/17 09:08 Dose: 20 mg - Labs Labs: 06/11/17 06:00 06/11/17 06:00 PT 10.6 Seconds (9.9-11.8) 05/31/17 11:30 INR 0.98 (0.93-1.08) 05/31/17 11:30 APTT 24.1 Seconds (23.7-30.8) 05/31/17 11:30
--- NOTE | 2017-06-11 10:48 | PN ---
i DATE: A 66-year-old female appears more alert today, looks at me, does not answer questions when asked how she is doing, but she does move a little better, especially the left knee, still has some flexion contracture of the right knee, but she is definitely more coherent today, but Ii saw the note that therapy is not working with her because they think she is too lethargic, but I am going to insist that they do x-ray by getting out of bed and force her to move her extremities before they get too tight and contracted. There is no cortisone shot, this is going to help her. She has had physical therapy to get her stronger and more mobile and challenge her to get up out of bed. Hopefully, they could do it this week and other week did not too much at all. Hopefully, this week they could be more aggressive with her needs which is to get stronger and more confidence and more mobile. Faraz Cortez DO MTDPadmini
[2017-06-11] MEDS: Propranolol 80 mg ER Cap PO SCH (12:35)
--- NOTE | 2017-06-11 13:32 | PN ---
SUBJECTIVE: The patient is in bed in no acute distress. PHYSICAL EXAMINATION: VITAL SIGNS: Temperature is 99, blood pressure is 180/100, respiratory rate of 18, heart rate of 80. HEENT: Unremarkable. NECK: Supple. LUNGS: Decreased breath sounds. *------* Normal S1 and S2. ABDOMEN: Soft. LABORATORY DATA: Examination is reviewed. The patient-s white count is 6, hemoglobin of 10, BUN of 14, creatinine of 0.6. Review of the orders reveals the patient is off of antibiotics. Review of cultures reveals the blood and urine cultures are negative. The patient is still on prednisone and Dr. Butt's note is reviewed from yesterday. ASSESSMENT AND PLAN: A 66-year-old female with systemic inflammatory response syndrome, currently off of antibiotics, afebrile, white count is normal, and she is at risk for developing nosocomial infections. Overall prognosis is quite poor. Jose Suh MD
--- NOTE | 2017-06-11 15:11 | PN ---
DATE: 06/11/2017 REASON FOR CONSULTATION: Followup for persistent tachycardia and cardiac evaluation. SUBJECTIVE: The patient is awake and alert. Denies any chest pain, shortness of breath, or any palpitations. OBJECTIVE FINDINGS: GENERAL: Not in apparent distress, lying flat in the bed. VITAL SIGNS: Temperature afebrile, heart rate 123, and blood pressure 148/106. HEENT: PERRLA intact. NECK: Supple. No carotid bruit or thyromegaly. CHEST: Clear to auscultation. HEART: S1 and S2 regular. ABDOMEN: Soft. EXTREMITIES: Clubbing and cyanosis negative. LABORATORY DATA: Blood workup as follows: WBC 6, hemoglobin 10.7, hematocrit 33.2, and platelet count 323. Chemistry shows sodium 140, potassium 3.1, chloride 100, carbon dioxide 31, anion gap of 12, BUN 14, and creatinine 0.6. Total protein 6.3, albumin 3.5, and albumin-globulin ratio 1.3. IMPRESSION: Severe hypokalemia, anemia and sinus tachycardia, hematologic malignancy with metastasis to the brain and dysphagia improved on p.o., metastasis leading to the brain. RECOMMENDATION: Change propranolol 20 to long acting and if the blood pressure still remains elevated, we will increase . We will follow with you. Thank you Dr. Bynum for the opportunity to take care of Kelsie Cain. Waylon Perez MD
--- NOTE | 2017-06-11 20:45 | CP.PCM.PN ---
Subjective - Date & Time of Evaluation Date of Evaluation: 06/10/17 Time of Evaluation: 21:00 - Subjective Subjective: No acute complaints 12 ROS negative Pain: denies Objective - Vital Signs/Intake and Output Vital Signs (last 24 hours): Temp Pulse Resp BP Pulse Ox 98.8 F 119 H 18 147/96 H 98 06/11/17 16:00 06/11/17 18:00 06/11/17 16:00 06/11/17 16:00 06/11/17 16:00 - Medications Medications: Current Medications Acetaminophen (Tylenol 325mg Tab) 650 mg PO Q6H PRN PRN Reason: Pain, moderate (4-7) Last Admin: 06/11/17 16:04 Dose: 650 mg Amlodipine Besylate (Norvasc) 10 mg PO DAILY [facility] Last Admin: 06/08/17 10:03 Dose: Not Given Amlodipine Besylate (Norvasc) 10 mg PO DAILY [facility] Last Admin: 06/11/17 10:52 Dose: 10 mg Clonidine HCl (Catapres-Tts2 0.2 Mg/24 Hr) 1 patch TD Q7D@1000 [facility] Last Admin: 06/10/17 16:37 Dose: 1 patch Docusate Sodium (Colace) 100 mg PO TID [facility] Last Admin: 06/08/17 13:32 Dose: Not Given Famotidine (Pepcid) 20 mg PO DAILY [facility] Last Admin: 06/06/17 10:00 Dose: Not Given Hydralazine HCl (Apresoline) 25 mg PO QID [facility] Last Admin: 06/08/17 13:32 Dose: Not Given Dextrose/Sodium Chloride (Dextrose 5%/0.45% Ns 1000 Ml) 1,000 mls @ 60 mls/hr IV .[id number] [facility] Last Admin: 06/11/17 09:12 Dose: 60 mls/hr Levetiracetam (Keppra 500mg Ivpb) 500 mg in 100 mls @ 200 mls/hr IVPB Q12 [facility] Last Admin: 06/11/17 09:08 Dose: 200 mls/hr Labetalol HCl (Trandate) 20 mg IVP TID [facility] Last Admin: 06/09/17 17:24 Dose: 20 mg Lamotrigine (Lamictal) 200 mg PO BID [facility] Last Admin: 06/08/17 10:04 Dose: Not Given Levetiracetam (Keppra) 500 mg PO BID [facility] Last Admin: 06/08/17 10:04 Dose: Not Given Lisinopril (Zestril) 20 mg PO DAILY [facility] Last Admin: 06/08/17 10:04 Dose: Not Given Lisinopril (Zestril) 20 mg PO DAILY [facility] Last Admin: 06/11/17 10:55 Dose: 20 mg Methylphenidate HCl (Ritalin) 5 mg PO DAILY [facility] Last Admin: 06/08/17 10:04 Dose: Not Given Mirtazapine (Remeron) 7.5 mg PO HS [facility] Last Admin: 06/10/17 21:26 Dose: 7.5 mg Potassium Chloride (K-Dur 20 Meq Er Tab) 20 meq PO BRK [facility] Last Admin: 06/08/17 08:46 Dose: Not Given Prednisone (Prednisone Tab) 20 mg PO DAILY [facility] Stop: 06/14/17 10:01 Propranolol HCl (Inderal La) 80 mg PO DAILY [facility] Last Admin: 06/11/17 12:35 Dose: 80 mg - Labs Labs: 06/11/17 06:00 06/11/17 06:00 PT 10.6 Seconds (9.9-11.8) 05/31/17 11:30 INR 0.98 (0.93-1.08) 05/31/17 11:30 APTT 24.1 Seconds (23.7-30.8) 05/31/17 11:30 - Constitutional Appears: Well - Respiratory Exam Respiratory Exam: Accessory Muscle Use - Cardiovascular Exam Cardiovascular Exam: REGULAR RHYTHM, +S1, +S2. absent: Murmur - GI/Abdominal Exam GI & Abdominal Exam: Soft, Normal Bowel Sounds. absent: Tenderness - Extremities Exam Extremities Exam: Full ROM, Normal Capillary Refill, Normal Inspection. absent : Joint Swelling, Pedal Edema Assessment and Plan - Assessment and Plan (Free Text) Assessment: Ms. Barlow deysi 66 y/o AA female with pmhx stage IV CLL/SLL s/p R-CVP previously currently admitted with SIRS/sepsis physiology, AMS . hypernatremia and presumptive pre-renal azotemia. Patient not found ot have infectious source and afebrile and was d/c'ed off of antibiotics. Mentation improving with correction of hypernatremia with IV hydration. Patient underwent left shoulder X -ray which demosntrated no evidence of fracture. Counts recovering and likely secondary to previous sepsis physiology. Patient po intake and swallowing ability appears to be improving. If this continues to be the case she may not require a PEG tube. IF PEG tube required will plan on doing while in the hospital Will continue to observe. Jessica approved for ibrutinib which can be started as an outpatient Dima Bynum MD Oncology Service
--- NOTE | 2017-06-11 20:45 | CP.PCM.PN ---
Subjective - Date & Time of Evaluation Date of Evaluation: 06/11/17 Time of Evaluation: 22:00 - Subjective Subjective: Ms. Barlow deysi 66 y/o AA female with pmhx stage IV CLL/SLL s/p R-CVP previously currently admitted with SIRS/sepsis physiology, AMS . hypernatremia and presumptive pre-renal azotemia. Patient not found ot have infectious source and afebrile and was d/c'ed off of antibiotics. Mentation improving with correction of hypernatremia with IV hydration. Patient underwent left shoulder X -ray which demosntrated no evidence of fracture. Counts recovering and likely secondary to previous sepsis physiology. Patient po intake and swallowing ability appears to be improving. If this continues to be the case she may not require a PEG tube. IF PEG tube required will plan on doing while in the hospital Will continue to observe. Jessica approved for ibrutinib which can be started as an outpatient Dima Bynum MD Oncology Service Objective - Vital Signs/Intake and Output Vital Signs (last 24 hours): Temp Pulse Resp BP Pulse Ox 98.8 F 119 H 18 147/96 H 98 06/11/17 16:00 06/11/17 18:00 06/11/17 16:00 06/11/17 16:00 06/11/17 16:00 - Medications Medications: Current Medications Acetaminophen (Tylenol 325mg Tab) 650 mg PO Q6H PRN PRN Reason: Pain, moderate (4-7) Last Admin: 06/11/17 16:04 Dose: 650 mg Amlodipine Besylate (Norvasc) 10 mg PO DAILY [facility] Last Admin: 06/08/17 10:03 Dose: Not Given Amlodipine Besylate (Norvasc) 10 mg PO DAILY [facility] Last Admin: 06/11/17 10:52 Dose: 10 mg Clonidine HCl (Catapres-Tts2 0.2 Mg/24 Hr) 1 patch TD Q7D@1000 [facility] Last Admin: 06/10/17 16:37 Dose: 1 patch Docusate Sodium (Colace) 100 mg PO TID [facility] Last Admin: 06/08/17 13:32 Dose: Not Given Famotidine (Pepcid) 20 mg PO DAILY [facility] Last Admin: 06/06/17 10:00 Dose: Not Given Hydralazine HCl (Apresoline) 25 mg PO QID [facility] Last Admin: 06/08/17 13:32 Dose: Not Given Dextrose/Sodium Chloride (Dextrose 5%/0.45% Ns 1000 Ml) 1,000 mls @ 60 mls/hr IV .[id number] [facility] Last Admin: 06/11/17 09:12 Dose: 60 mls/hr Levetiracetam (Keppra 500mg Ivpb) 500 mg in 100 mls @ 200 mls/hr IVPB Q12 [facility] Last Admin: 06/11/17 09:08 Dose: 200 mls/hr Labetalol HCl (Trandate) 20 mg IVP TID [facility] Last Admin: 06/09/17 17:24 Dose: 20 mg Lamotrigine (Lamictal) 200 mg PO BID [facility] Last Admin: 06/08/17 10:04 Dose: Not Given Levetiracetam (Keppra) 500 mg PO BID [facility] Last Admin: 06/08/17 10:04 Dose: Not Given Lisinopril (Zestril) 20 mg PO DAILY [facility] Last Admin: 06/08/17 10:04 Dose: Not Given Lisinopril (Zestril) 20 mg PO DAILY [facility] Last Admin: 06/11/17 10:55 Dose: 20 mg Methylphenidate HCl (Ritalin) 5 mg PO DAILY [facility] Last Admin: 06/08/17 10:04 Dose: Not Given Mirtazapine (Remeron) 7.5 mg PO HS [facility] Last Admin: 06/10/17 21:26 Dose: 7.5 mg Potassium Chloride (K-Dur 20 Meq Er Tab) 20 meq PO BRK [facility] Last Admin: 06/08/17 08:46 Dose: Not Given Prednisone (Prednisone Tab) 20 mg PO DAILY [facility] Stop: 06/14/17 10:01 Propranolol HCl (Inderal La) 80 mg PO DAILY [facility] Last Admin: 06/11/17 12:35 Dose: 80 mg - Labs Labs: 06/11/17 06:00 06/11/17 06:00 PT 10.6 Seconds (9.9-11.8) 05/31/17 11:30 INR 0.98 (0.93-1.08) 05/31/17 11:30 APTT 24.1 Seconds (23.7-30.8) 05/31/17 11:30
[2017-06-11 20:52] VITALS: RESP 20
[2017-06-12 06:52] LABS: ALB/GLOB RATIO 1.3 (1.1-1.8); ALT/SGPT 76 U/L (7-56); AST/SGOT 44 U/L (15-39); BLOOD UREA NITROGEN 17 mg/dL (7-21); CALCIUM 9.1 mg/dL (8.4-10.5); GFR AFRICAN-AMERICAN > 60; GFR NON-AFRICAN AMERICAN > 60
[2017-06-12 06:59] LABS: BASO # 0.01 K/mm3 (0.0-2.0); BASO % 0.2 % (0.0-3.0); EOS # 0.1 (0.0-0.7); EOS % 1.4 % (1.5-5.0); GRAN # 2.24 (1.4-6.5); HEMOGLOBIN 10.5 gm/dL (12.0-16.0); LYMPH # 1.7 (1.2-3.4); LYMPH % 38.5 % (22.0-35.0); MEAN CELL VOLUME 89.9 fL (80.0-105.0); MEAN CORPUSCULAR HEMOGLOBIN 29.6 pg (25.0-35.0); MEAN CORPUSCULAR HGB CONC 32.9 g/dl (31.0-37.0); MEAN PLATELET VOLUME 8.7 fl (7.0-11.0); MONO # 0.3 (0.1-0.6); MONO % 7.9 % (1.0-6.0); PLATELET COUNT 280 10^3/uL (120.0-450.0); RBC 3.55 10^6/uL (3.5-6.1); RED CELL DISTRIBUTION WIDTH 14.4 % (11.5-14.5); WHITE BLOOD COUNT 4.3 10^3/ul (4.5-11.0)
--- NOTE | 2017-06-12 07:25 | CP.PCM.PN ---
Subjective - Date & Time of Evaluation Date of Evaluation: 06/12/17 Time of Evaluation: 07:25 - Subjective Subjective: change propranolol 20 to long active started on clonidine patch SIRS, off antibiotics Objective - Vital Signs/Intake and Output Vital Signs (last 24 hours): Temp Pulse Resp BP Pulse Ox 99.4 F 117 H 20 139/92 H 98 06/11/17 20:30 06/12/17 06:00 06/11/17 20:30 06/11/17 20:30 06/11/17 20:30 Intake and Output: 06/12/17 06/12/17 06:59 18:59 Intake Total 1720 Balance 1720 - Medications Medications: Current Medications Acetaminophen (Tylenol 325mg Tab) 650 mg PO Q6H PRN PRN Reason: Pain, moderate (4-7) Last Admin: 06/11/17 16:04 Dose: 650 mg Amlodipine Besylate (Norvasc) 10 mg PO DAILY [facility] Last Admin: 06/11/17 10:52 Dose: 10 mg Clonidine HCl (Catapres-Tts2 0.2 Mg/24 Hr) 1 patch TD Q7D@1000 [facility] Last Admin: 06/10/17 16:37 Dose: 1 patch Docusate Sodium (Colace) 100 mg PO TID [facility] Last Admin: 06/08/17 13:32 Dose: Not Given Famotidine (Pepcid) 20 mg PO DAILY [facility] Last Admin: 06/06/17 10:00 Dose: Not Given Dextrose/Sodium Chloride (Dextrose 5%/0.45% Ns 1000 Ml) 1,000 mls @ 60 mls/hr IV .[id number] [facility] Last Admin: 06/11/17 09:12 Dose: 60 mls/hr Levetiracetam (Keppra 500mg Ivpb) 500 mg in 100 mls @ 200 mls/hr IVPB Q12 [facility] Last Admin: 06/11/17 21:26 Dose: 200 mls/hr Labetalol HCl (Trandate) 20 mg IVP TID [facility] Last Admin: 06/09/17 17:24 Dose: 20 mg Lamotrigine (Lamictal) 200 mg PO BID [facility] Last Admin: 06/08/17 10:04 Dose: Not Given Levetiracetam (Keppra) 500 mg PO BID [facility] Last Admin: 06/08/17 10:04 Dose: Not Given Lisinopril (Zestril) 20 mg PO DAILY [facility] Last Admin: 06/11/17 10:55 Dose: 20 mg Methylphenidate HCl (Ritalin) 5 mg PO DAILY [facility] Last Admin: 06/08/17 10:04 Dose: Not Given Mirtazapine (Remeron) 7.5 mg PO HS [facility] Last Admin: 06/11/17 21:25 Dose: 7.5 mg Potassium Chloride (K-Dur 20 Meq Er Tab) 20 meq PO BRK [facility] Last Admin: 06/08/17 08:46 Dose: Not Given Prednisone (Prednisone Tab) 20 mg PO DAILY [facility] Stop: 06/14/17 10:01 Propranolol HCl (Inderal La) 80 mg PO DAILY [facility] Last Admin: 06/11/17 12:35 Dose: 80 mg - Labs Labs: 06/12/17 06:05 06/12/17 06:05 PT 10.6 Seconds (9.9-11.8) 05/31/17 11:30 INR 0.98 (0.93-1.08) 05/31/17 11:30 APTT 24.1 Seconds (23.7-30.8) 05/31/17 11:30 - Constitutional Appears: No Acute Distress, Cachectic, Chronically Ill - Head Exam Head Exam: ATRAUMATIC, NORMAL INSPECTION, NORMOCEPHALIC - Eye Exam Eye Exam: EOMI, Normal appearance, PERRL. absent: Scleral icterus - ENT Exam ENT Exam: Mucous Membranes Moist - Respiratory Exam Respiratory Exam: Decreased Breath Sounds (bibasilar), Clear to Ausculation Bilateral. absent: Rales, Rhonchi, Wheezes - Cardiovascular Exam Cardiovascular Exam: REGULAR RHYTHM, +S1, +S2 - GI/Abdominal Exam GI & Abdominal Exam: Soft. absent: Guarding, Rigid, Tenderness - Extremities Exam Extremities Exam: Normal Capillary Refill. absent: Calf Tenderness, Pedal Edema - Neurological Exam Neurological Exam: Alert, Awake Additional comments: one word answer to simple question - Psychiatric Exam Psychiatric exam: Normal Affect, Normal Mood - Skin Skin Exam: Dry, Warm Assessment and Plan - Assessment and Plan (Free Text) Plan: 66 AA F, from [facility] rehab, had fever of 102.5, admitted for AMS, sepsis, dehydration. Pt has PMH sign for Stage IV Lymphoma w mets to R [place] (temporal bone area) leading to trigeminal neuralgia & dysphagia, s/ p radiation R-CVP, and chronic pancytopenia. At baseline, pt is B&B incontinent. Pt has persistent sinus tachycardia requiring med changes. Pt has fluctuating mentation through the day, more alert around noon, able to intereact with family, more disoriented/lethargic at night, which is baseline per family. Over the weekend pt mentation improves Plan: Pt is not willing to participate in PT which is a barrier to rehab placmenet. Medicaid ongoing for possible LT. Failure to thrive - Hx lethargy and dysphagia - refuse PEG placement - Palliative consult met with family. DNR./DNI/ no artificial feeding - dietitan consult to add nutrient - D5/half ns @ 60 Sinus tachycardia - cardiac enzyme negative - Keep sbp between 130-140 - likely chronic problem. No further workup per Dr. Bynum. 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 Degenerative changes in appendicular skeleton - Swallow eval reveals worsening of dysphagia. - MRI of head 2 months ago was without contrast - Will defer LP at this time giving that patient already has cancer. - MRI with/w/o contrast, c spine and thoracic MRI negative for mets - PT/OT eval - Continue to monitor and treat electrolytes. - Avoid sedatives - If positive brain mets, will consider intrathecal streoid Pancytopenia - Prednisone 5 daily - Leucopenia = sepsis vs lymphoma - anemia = stable at 10 SIRS. Doubt Sepsis - Afebile, WBC 2.5, lactate 1.2, procal 1.03 (high, in the setting of BATSHEVA) - CT-chest w/o contrast: unremarkable - Observe off ANX. S/p Zosyn -Fluconazole IV BATSHEVA, prerenal azotemia Hypernatremia, dehydation Mentation improves with corrected hypernatremia and IVF - Monitor Urine Output - Monitor electrolyte closely - On K-dur HTN - not on meds Prophylaxis - SCD - Pepcid 20 daily Advanced planning - remains medical POA for now - Patient/family also met with Susan Johnson to complete power of finance attorney documents. Disposition - spouse and daughter attempt to get medicaid for patient - Not willing to participating in rehab is barrier to transfer to [facility] rehab. - Daughter is POA - financial; of pt is medical POA S/R/D/w Dr. Bynum
[2017-06-12 08:32] VITALS: O2SAT 98
[2017-06-12] MEDS: Potassium Chloride 20 mEq ER Tab PO SCH (08:59)
[2017-06-12] MEDS: Propranolol 80 mg ER Cap PO SCH (09:44)
[2017-06-12] MEDS: levETIRAcetam 500mg IVPB 500 MG/100 ML BAG IVPB SCH (10:00)
--- NOTE | 2017-06-12 10:26 | PN ---
DATE: A 66-year-old in room 374, bed 1. The patient was admitted on 05/31/2017 with multiple joint pain. When I saw her today, she is lying supine in bed with her knees fully extended, can actually verbalize a little bit and I palpated the knees and hips, there is no evidence of fracture, no undue swelling and is a good time for her to go to therapy, as she does appear to want to cooperate and is more communicative, so she could express herself better and legs are ready to go for physical therapy to get her strength, so she does not fall. Encouraged therapy to stay with her until she can be more independent and walk without a chance of falling or to decrease the risk of falling, so things are ready for physical therapy and to encourage her to get her strength and ambulate with a walker. Faraz Cortez DO
[2017-06-12] MEDS ORDERED: Potassium Chloride 20 mEq ER Tab PO ONE ×2 (12:51→15:00)
[2017-06-12] MEDS ORDERED: Potassium Chloride 30 MEQ in Dextrose 5%/0.45% NS 1,000 ML IV SCH (14:22)
--- NOTE | 2017-06-12 14:47 | PN ---
DATE: 06/12/2017 A 66-year-old, black female, improving mentation, improving appetite, swallowing better. Vital signs stable. Plan is to transfer to rehab when bed available. The patient continues to be mildly hypertensive at 143/101 and with heart rate of 121. The patient has chronic tachycardia, hypertension lymphoma with [employer] mets. Alex Butt MD
--- NOTE | 2017-06-12 15:04 | CP.PCM.PN ---
Subjective - Date & Time of Evaluation Date of Evaluation: 06/12/17 Time of Evaluation: 09:20 - Subjective Subjective: Comfortable, afebrile, not in distress. Objective - Vital Signs/Intake and Output Vital Signs (last 24 hours): Temp Pulse Resp BP Pulse Ox 98.8 F 80 20 149/100 H 98 06/12/17 08:31 06/12/17 09:46 06/12/17 08:31 06/12/17 09:46 06/12/17 08:31 Intake and Output: 06/12/17 06/12/17 06:59 18:59 Intake Total 1720 240 Balance 1720 240 - Medications Medications: Current Medications Acetaminophen (Tylenol 325mg Tab) 650 mg PO Q6H PRN PRN Reason: Pain, moderate (4-7) Last Admin: 06/11/17 16:04 Dose: 650 mg Amlodipine Besylate (Norvasc) 10 mg PO DAILY [facility] Last Admin: 06/12/17 09:45 Dose: 10 mg Clonidine HCl (Catapres-Tts3 0.3 Mg/24 Hr) 1 patch TD Q7D@1000 [facility] Docusate Sodium (Colace) 100 mg PO TID [facility] Last Admin: 06/12/17 09:44 Dose: 100 mg Famotidine (Pepcid) 20 mg PO DAILY [facility] Last Admin: 06/12/17 09:45 Dose: 20 mg Levetiracetam (Keppra 500mg Ivpb) 500 mg in 100 mls @ 200 mls/hr IVPB Q12 [facility] Last Admin: 06/11/17 21:26 Dose: 200 mls/hr Potassium Chloride 30 meq/ (Dextrose/Sodium Chloride) 1,015 mls @ 60 mls/hr IV .[id number] [facility] Labetalol HCl (Trandate) 20 mg IVP TID [facility] Last Admin: 06/09/17 17:24 Dose: 20 mg Lamotrigine (Lamictal) 200 mg PO BID [facility] Last Admin: 06/12/17 09:45 Dose: 200 mg Levetiracetam (Keppra) 500 mg PO BID [facility] Last Admin: 06/08/17 10:04 Dose: Not Given Lisinopril (Zestril) 20 mg PO DAILY [facility] Last Admin: 06/12/17 09:46 Dose: 20 mg Methylphenidate HCl (Ritalin) 5 mg PO DAILY [facility] Last Admin: 06/08/17 10:04 Dose: Not Given Mirtazapine (Remeron) 7.5 mg PO HS [facility] Last Admin: 06/11/17 21:25 Dose: 7.5 mg Potassium Chloride (K-Dur 20 Meq Er Tab) 20 meq PO BRK [facility] Last Admin: 06/12/17 08:59 Dose: 20 meq Potassium Chloride (K-Dur 20 Meq Er Tab) 20 meq PO ONCE ONE Stop: 06/12/17 15:01 Prednisone (Prednisone Tab) 20 mg PO DAILY [facility] Stop: 06/14/17 10:01 Last Admin: 06/12/17 09:45 Dose: 20 mg Propranolol HCl (Inderal La) 120 mg PO DAILY [facility] - Labs Labs: 06/12/17 06:05 06/12/17 06:05 PT 10.6 Seconds (9.9-11.8) 05/31/17 11:30 INR 0.98 (0.93-1.08) 05/31/17 11:30 APTT 24.1 Seconds (23.7-30.8) 05/31/17 11:30 - Constitutional Appears: Non-toxic, No Acute Distress - Head Exam Head Exam: NORMAL INSPECTION - Neck Exam Neck Exam: absent: Meningismus - Respiratory Exam Respiratory Exam: Decreased Breath Sounds - Cardiovascular Exam Cardiovascular Exam: +S1, +S2 - GI/Abdominal Exam GI & Abdominal Exam: Soft. absent: Tenderness Assessment and Plan - Assessment and Plan (Free Text) Plan: Assessment S/P systemic inflammatory response syndrome, no source of sepsis identified probable toxic-metabolic encephalopathy from hypernatremia, clinically improving history of acute arenas-sinusitis with associated bilateral otomastoiditis history of ventilator-dependent respiratory failure from healthcare-associated pneumonia history of chemotherapy-associated neutropenia lymphoma on chemo and radiotherapy asthma history of left pyelonephritis seizures cataracts asthma Plan continue to monitor off antibiotics since she is at risk for hospital-acquired infections
[2017-06-12 15:17] VITALS: PULSE 91
[2017-06-12 18:27] VITALS: BP 144/89; TEMP 99.5
--- NOTE | 2017-06-12 19:13 | PN ---
REASON FOR CONSULTATION: Followup persistent tachycardia and cardiac evaluation. SUBJECTIVE: The patient is awake and alert. Denies any chest pain or complaints of mild palpitation in the morning. OBJECTIVE FINDINGS: GENERAL: The patient is lying flat. Not in apparent distress. VITAL SIGNS: Temperature afebrile, heart rate 80, and blood pressure 149/100. HEENT: PERRLA. Extraocular muscles intact. NECK: Supple. No carotid bruit or thyromegaly. CHEST: Clear to auscultation. HEART: S1 and S2 regular. ABDOMEN: Soft. EXTREMITIES: Clubbing and cyanosis negative. LABORATORY DATA: Blood workup as follows: WBC 4.8, hemoglobin 10.9, hematocrit 31.9, and platelet count 280. Chemistry shows sodium 135, potassium 3.3, chloride 101, carbon dioxide 30, anion gap of 9, BUN 17, creatinine 0.6. Total troponin 5.5, albumin 3, albumin-globulin ratio 1.3. IMPRESSION: A 66-year-old female with past medical history significant for lymphocytic lymphoma, a small cell metastasis to the brain, seizure disorder, chronic dysphagia, failure to thrive. He recently started eating p.o. History of sinus tachycardia, on propranolol, controlled. History of hypertension. Echo showed preserved LV function. Mostly bed-bound. Hypokalemia, malignancy with metastasis to the brain as mentioned. RECOMMENDATION: We will give early dose of propranolol 80 mg now and give 20 mg at 2 p.m. and increase propranolol to 120 mg from tomorrow. Supplement potassium. We will also increase lisinopril to 40 mg from tomorrow because of the high blood pressure. We will increase the clonidine patch #3 from today because the patient sometime has difficulty in dysphagia, so that will causes more smooth maintaining of the blood pressure on clonidine patch. The patient's last echo 10/26/2016 shows ejection fraction of about 65% to 70% and no tricuspid regurgitation. RV systolic pressure 16. Overall, the patient's condition is critical, long-term prognosis is guarded. We will give 2 doses of K-Dur, total [address] Butt in taking care the patient. We will follow with you. Waylon Perez MD
--- NOTE | 2017-06-12 19:40 | PN ---
DATE: 06/12/2017 SUBJECTIVE: The patient is seen lying in bed. She is arousable. She is responding to her family. PHYSICAL EXAMINATION: GENERAL: Cachectic elderly lady, lying in bed. VITAL SIGNS: Blood pressure 149/100, heart rate 80, respiratory rate 20, and temperature 98.8. HEENT: Normocephalic, atraumatic. Positive pallor. NECK: Supple, no JVD. LUNGS: Bilateral equal air entry. CARDIAC: S1, S2, regular rate and rhythm, no murmur, no rubs. ABDOMEN: Soft, nondistended, nontender, bowel sounds are present. EXTREMITIES: No lower extremity edema. INTAKE AND OUTPUT: 1720/not charted. LABORATORY DATA: WBC 4.3, hemoglobin 10.5, hematocrit 32, platelets 280. Sodium 135, potassium 3.3, chloride 101, CO2 of 28, BUN 17, creatinine 0.6, glucose 104, calcium 9.1, phosphorus not checked. AST 44, ALT 76, albumin 3.0. CURRENT MEDICATIONS: 1. Catapres patch 2. Colace. 3. D5 half normal saline at 60. 4. Inderal. 5. Potassium 20 mEq. 6. Keppra. 7. Lamictal. 8. Amlodipine. 9. Pepcid. 10. Prednisone. 11. Remeron. 12. Trandate 20 mg IV t.i.d. 13. Tylenol. 14. Zestril. 15. Hydralazine. ASSESSMENT AND PLAN: 1. Resolved acute kidney injury. 2. Severe hypokalemia. 3. Hypertension. 4. Stage IV lymphoma with brain metastasis. 5. Seizure disorder. 6. Anemia. PLAN: 1. Add KCL 30 mEq to each liter of IV fluids. 2. Push p.o. intake. 3. Management of as per oncology team. Alexa Camarillo MD
--- NOTE | 2017-06-13 02:09 | CON ---
DATE: 06/12/2017 HISTORY OF PRESENT ILLNESS: The patient is a 66-year-old -Domin[place] female, who is being followed by psychiatry because of confusion, depression as well as lack of appetite. I saw patient two days ago when she was quite sedated and difficult to arouse, but responsive to my repeat questioning. She was disoriented and demonstrating underproductive speech with constricted affect. At that time, she was also not hallucinating. During my interview at bedside today, she was found to be much more arousable with better focus and eye contact, and responses were relevant to questioning. They were also consistent with repeat questioning. Today, patient denied having any depression and denied having any suicidal thoughts. She denied having hallucinations and was more oriented. She would provide the correct location, month, and year at my request today. Staff notes indicate that patient has been eating more and has been more alert. She has also been sleeping well overnight. Patient herself denies to having any side effects to Remeron that was initiated for her. Overall, she appears to show some improvement in clarity of thoughts. Her insight and judgment are improving. MEDICATIONS: Reviewed by provider. PHYSICAL EXAMINATION VITAL SIGNS: Reviewed by provider. LABORATORY DATA: Reviewed by provider. IMPRESSION: Rule out mood disorder secondary to general medical condition. Improving delirium. PLAN: We will continue with current management including Remeron 7.5 mg at bedtime for sleeping and depression and to improve appetite. Psychiatry will continue to follow up with patient every 2 days, however, if she need more immediate attention, please feel free to communicate and if there are any more acute issues, then we will visit her earlier. Floyd Fairchild MD
[2017-06-13] MEDS ORDERED: Propranolol 60 mg ER Cap PO SCH (10:00)
--- NOTE | 2017-06-13 11:17 | PQF SEPSIS ---
06/13/17 Dr. Butt, Please clarify whether patient was admitted with sepsis. Sepsis is documented initially. Later notes by ID consultants state that patient has SIRS with no source found for sepsis. If sepsis was ruled out, please indicate reason for admission after study (cannot code SIRS as principal diagnosis). Thank you. Clarification of your documentation is requested to better reflect the severity of illness and intensity of treatment of your patient. Indicators present [] Temp < 96.8 or > 100.4 [] WBC count > 12,000/mm3 or <000/mm3 or 10% immature neutrophils [] Heart Rate > 90 [] Respiratory Rate > 20 [] Fever or hypothermia [] Chills [] Positive blood cultures [] Hypotension [] Metabolic acidosis (Elevated lactate level, anion gap or reduced blood pH) [] Acute confusion /Altered Mental Status [] Shock [] Other: [] Location in the medical record that reflects the above clinical findings: [] Treatment Provided: [] PHYSICIAN'S RESPONSE Based on your medical judgment of the clinical indicators outlined above, are you treating this patient for a known or suspected: [] Sepsis / Septicemia Please specify organism if known [] [] SIRS (Systemic Inflammatory Response Syndrome) [] Severe Sepsis (Sepsis with Associated Organ Dysfunction) [] Fever of Unknown Origin [] Other, please indicate: [] [] If Unable to Determine, please check the box, sign and date. Present On Admission (POA) Indicator: [] Present at the time of admission [] Not present at the time of admission [] Clinically Undetermined In responding to this query, please exercise your independent professional judgment. The fact that a question is asked does not imply that any particular answer is desired or expected. Thank you for your clarification on this documentation. If you have any questions please call:[ ] * Thank you, [ ] recruitment intern SAMM
--- NOTE | 2017-06-13 16:29 | CP.PCM.PCO ---
Physician Communication Note - Physician Communication Note Physician Communication Note: pt was d/c
--- NOTE | 2017-06-14 05:24 | DS ---
HISTORY OF PRESENT ILLNESS: Patient is a 66-year-old black female admitted to the hospital with change in mental status, confusion and elevated fever. Patient was seen in consultation by neurology and also by psychiatry. The patient was severely incapacitated initially, but improved steadily over the next several days with improving mental status and physical state. Patient was severely weakened and was bed bound for a while, but started to do physical therapy and voice therapy. She has had a weak voice and difficulty swallowing, which has been a chronic problem with this patient in the past, but improved steadily. She got to the point where she was able to eat and swallow. She started to become more awake and alert, oriented x3. Her CT was negative and a test scan was negative for any further brain metastasis from her underlying lymphoma. Patient was able to be transferred to rehab department and continue rehabilitation and physical therapy. FINAL DISCHARGE DIAGNOSES: Change in mental status. Toxic metabolic encephalopathy. History of lymphoma with central nervous system metastases. History of seizure disorder, under control. History of hypertension and tachyarrhythmia. Alex Butt MD Alex Butt MD
--- NOTE | 2017-06-14 08:54 | DS ---
HISTORY OF PRESENT ILLNESS: A 66-year-old black female with seizure disorder, lymphoma, and metastatic to the brain status post treatment with Dr. Bynum. The patient was admitted on 05/06/2017 and discharged on 05/15/2017. She had been seen on consultation by Dr. Bynum and Dr. Suh, because of swallowing difficulties. HOSPITAL COURSE: The patient improved fairly over the course of her stay. She did get physical therapy and occupational therapy. She was cleared for some swallowing is concerned. She was treated for bilateral mastoiditis with IV antibiotics and also for sinusitis for long course of antibiotics and then she improved. Her white count dropped and her sedimentation rate also dropped. She was initially able to be discharged home in improved condition and to continue to complete a course of antibiotics at home following discharge. DIAGNOSES: Mastoiditis, sinusitis, dysphagia, hoarseness, history of lymphoma, history of seizure disorder, hypertension, and tachyarrhythmia. Alex Butt MD
--- NOTE | 2017-06-15 11:57 | PQF SEPSIS ---
06/16/17 Dr. Butt, You signed the prior query form, but I do not see an answer to the question. Do you agree, disagree, other, with the diagnosis of systemic sepsis for this patient. If you agree, was sepsis present on admission? Thank you. Clarification of your documentation is requested to better reflect the severity of illness and intensity of treatment of your patient. Indicators present [] Temp < 96.8 or > 100.4 [] WBC count > 12,000/mm3 or <000/mm3 or 10% immature neutrophils [] Heart Rate > 90 [] Respiratory Rate > 20 [] Fever or hypothermia [] Chills [] Positive blood cultures [] Hypotension [] Metabolic acidosis (Elevated lactate level, anion gap or reduced blood pH) [] Acute confusion /Altered Mental Status [] Shock [] Other: [] Location in the medical record that reflects the above clinical findings: [] Treatment Provided: [] PHYSICIAN'S RESPONSE Based on your medical judgment of the clinical indicators outlined above, are you treating this patient for a known or suspected: [] Sepsis / Septicemia Please specify organism if known [] [] SIRS (Systemic Inflammatory Response Syndrome) [] Severe Sepsis (Sepsis with Associated Organ Dysfunction) [x] Fever of Unknown Origin [] Other, please indicate: [] [] If Unable to Determine, please check the box, sign and date. Present On Admission (POA) Indicator: [x] Present at the time of admission [] Not present at the time of admission [] Clinically Undetermined In responding to this query, please exercise your independent professional judgment. The fact that a question is asked does not imply that any particular answer is desired or expected. Thank you for your clarification on this documentation. If you have any questions please call:[ ] * Thank you, [ ] cloth classer SAMM
== END 2017-06-12 21:12 | DRG 864 ==
LOC: ED 11:18 → ERH 14:19 → 2RNO 16:45 → 3RSO 06-05 04:59
PROVIDERS: ADMIT Internal Medicine; ATTEND Internal Medicine
PROC: 3E0234Z Introduction of Serum, Toxoid and Vaccine into Muscle, Percutaneous Approach (ICD-10-PCS; principal; 2017-05-31)
DX: R50.9 Fever, unspecified (principal); D70.1 Agranulocytosis secondary to cancer chemotherapy; G92 Toxic encephalopathy; N17.9 Acute kidney failure, unspecified; E44.0 Moderate protein-calorie malnutrition; C85.99 Non-Hodgkin lymphoma, unspecified, extranodal and solid organ sites; E87.0 Hyperosmolality and hypernatremia; C79.31 Secondary malignant neoplasm of brain; F03.90 Unspecified dementia, unspecified severity, without behavioral disturbance, psychotic disturbance, mood disturbance, and anxiety; D61.818 Other pancytopenia; M62.82 Rhabdomyolysis; E87.1 Hypo-osmolality and hyponatremia; K35.80 Unspecified acute appendicitis; E83.42 Hypomagnesemia; E83.39 Other disorders of phosphorus metabolism; E83.52 Hypercalcemia; E86.0 Dehydration; E87.6 Hypokalemia; F32.89 Other specified depressive episodes; F41.9 Anxiety disorder, unspecified; G40.909 Epilepsy, unspecified, not intractable, without status epilepticus; H26.9 Unspecified cataract; H70.93 Unspecified mastoiditis, bilateral; I10 Essential (primary) hypertension; I25.10 Atherosclerotic heart disease of native coronary artery without angina pectoris; J01.40 Acute pansinusitis, unspecified; J32.4 Chronic pansinusitis; J44.9 Chronic obstructive pulmonary disease, unspecified; K21.9 Gastro-esophageal reflux disease without esophagitis; M19.011 Primary osteoarthritis, right shoulder; M19.012 Primary osteoarthritis, left shoulder; M24.561 Contracture, right knee; M75.101 Unspecified rotator cuff tear or rupture of right shoulder, not specified as traumatic; N28.1 Cyst of kidney, acquired; R13.10 Dysphagia, unspecified; R32 Unspecified urinary incontinence; T45.1X5A Adverse effect of antineoplastic and immunosuppressive drugs, initial encounter; Z79.899 Other long term (current) drug therapy; Z85.6 Personal history of leukemia; Z90.710 Acquired absence of both cervix and uterus; Z92.3 Personal history of irradiation; R00.0 Tachycardia, unspecified; F06.30 Mood disorder due to known physiological condition, unspecified; M25.552 Pain in left hip; R62.7 Adult failure to thrive; R53.81 Other malaise; R26.2 Difficulty in walking, not elsewhere classified; Z23 Encounter for immunization

== ENCOUNTER 2017-06-27 12:07 | Day surgery (SDC) | payer MEDICARE ==
[2017-06-27 12:49] VITALS: BMI 23.6
[2017-06-27 13:12] LABS: BASO # 0.01 K/mm3 (0.0-2.0); BASO % 0.2 % (0.0-3.0); EOS # 0.1 (0.0-0.7); EOS % 1.5 % (1.5-5.0); GRAN # 2.89 (1.4-6.5); GRAN % 62.4 % (50.0-68.0); HEMOGLOBIN 10.3 g/dL (12.0-16.0); LYMPH # 1.3 (1.2-3.4); LYMPH % 28.1 % (22.0-35.0); MEAN CORPUSCULAR HEMOGLOBIN 28.7 pg (25.0-35.0); MEAN CORPUSCULAR HGB CONC 31.9 g/dl (31.0-37.0); MEAN PLATELET VOLUME 8.6 fl (7.0-11.0); MONO # 0.4 (0.1-0.6); MONO % 7.8 % (1.0-6.0); PLATELET COUNT 132 10^3/uL (120.0-450.0); RBC 3.59 10^6/uL (3.5-6.1); RED CELL DISTRIBUTION WIDTH 14.2 % (11.5-14.5); WHITE BLOOD COUNT 4.6 10^3/ul (4.5-11.0)
[2017-06-27 13:21] LABS: INR 1.06 (0.93-1.08); PARTIAL THROMBOPLASTIN TIME 30.9 Seconds (23.7-30.8); PROTHROMBIN TIME 11.4 Seconds (9.9-11.8)
[2017-06-27] MEDS ORDERED: Propofol 10 mg/ml Inj (20 ML) ONE (14:59)
[2017-06-27] MEDS ORDERED: Sodium Chloride 0.9% 1,000 ML IV SCH (16:00)
[2017-06-27] MEDS ORDERED: Dextrose 5%/0.9% NS 1,000 ML IV SCH (16:00)
[2017-06-27] MEDS ORDERED: Dextrose 5%/0.45% NS 1,000 ML IV SCH (20:00)
[2017-06-28] MEDS ORDERED: Propranolol 60 mg ER Cap PO SCH (10:00)
[2017-06-28 13:00] LABS: BLOOD UREA NITROGEN 9 mg/dL (7-21); GFR AFRICAN-AMERICAN > 60; GFR NON-AFRICAN AMERICAN > 60
[2017-06-28] MEDS ORDERED: Potassium Chloride 20 mEq/15 ml LIQ UD PO STA (13:44)
[2017-06-28] MEDS ORDERED: Nitroglycerin 2% Ointment Foilpak UD TOP STA (14:18)
--- NOTE | 2017-06-28 16:31 | PN ---
SUBJECTIVE: Seen and examined at the beside earlier today. The patient is status post PEG tube, sent for extended recovery. The patient was found to have large amount of food and thick mucus that had to be removed. More debris was also removed from the mouth and posterior pharynx by Anesthesia. No acute overnight events are reported. The patient is awake. Denies any nausea; no abdominal pain. No reports of overt GI bleed. PHYSICAL EXAMINATION: VITAL SIGNS: Temperature is 97.4, blood pressure 183/109, pulse 97, respirations 20, and 96% on room air. HEENT: Sclerae are anicteric. NECK: Supple. CARDIAC: S1 and S2. LUNGS: Lung sounds with decreased breath sounds, but good air entry. No rales or wheeze. ABDOMEN: With bowel sounds, soft, nontender, no rebound or guarding. Palliative PEG in place; insertion site is dry and intact. MEDICATIONS: The patient's antihypertensive medications were restarted and is going to get a clonidine patch. LABORATORY DATA: Yesterday's labs were noted. ASSESSMENT: The patient with dysphagia, status post PEG, found to have large amount of food and that was removed. The patient also has history of lymphoma, seizure disorders and hypertension. 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 PLAN: The patient is on her antihypertensive medications Norvasc and she is going to get a clonidine patch. She is also on her dexamethasone. We will start tube feedings of Jevity at 30 mL an hour with 100 mL flesh per shift. We will request dietitian evaluation for goal rate and request for BMP today. The patient will likely be discharged back today. She was here for extended recovery. Seen and discussed with Dr. Montes De Oca. JESENIA Perez
[2017-06-28 17:24] VITALS: BP 154/91; PULSE 95; RESP 25; TEMP 98.7; O2SAT 100
== END 2017-06-28 22:25 ==
LOC: ENDO 12:07 → 5RNO 17:43 → ENDO 06-28 22:25
PROVIDERS: ATTEND Internal Medicine Gastroenterology
DX: R13.10 Dysphagia, unspecified (principal); E46 Unspecified protein-calorie malnutrition; C79.31 Secondary malignant neoplasm of brain; I10 Essential (primary) hypertension; G40.909 Epilepsy, unspecified, not intractable, without status epilepticus; Z68.23 Body mass index [BMI] 23.0-23.9, adult; Z85.72 Personal history of non-Hodgkin lymphomas
CPT/HCPCS: 36415 ×2; 43246; 80048; 85025; 85610; 85730; J0690; J2704; J3480; J7040 ×2; J7042 ×2; J8540